=== PATIENT | female | born 1955 | race Caucasian/White ===

== ENCOUNTER → 2018-04-05 07:22 | Outpatient (CLI) | payer BC, SELFPAY ==
--- NOTE | 2018-04-05 07:30 | BI_ITS ---
MAMMOGRAPHY - BILATERAL SCREENING REASON FOR EXAM: Female, 62 years old. Routine annual screening examination. PERTINENT HISTORY: Mother with breast cancer. Remote left stereotactic and excisional breast biopsy. TECHNIQUE: Digital bilateral breast paola (3D mammographic acquisition) in the CC and MLO projections. 2-D mediolateral oblique (MLO) and craniocaudad (CC) views of both breasts were obtained. CAD: Full Field Digital Mammography with Computer Added Detection was performed. COMPARISON: Comparison is made with prior study dated April 01, 2017 and March 16, 2016. FINDINGS: Breast Composition: There are scattered areas of fibroglandular density. There are no dominant masses or suspicious calcifications. Stable architectural distortion in the retroareolar region of the left breast suggestive of changes secondary to prior biopsy. A tissue clip marker is seen in the inferior medial aspect of the left breast. No other significant abnormalities are identified. There has been no significant change since the prior study. BI/SCREENING MAMM (CAD), BILAT IMPRESSION: Stable bilateral screening mammogram. Yearly follow-up mammogram recommended. (A) ASSESSMENT CATEGORY: BIRADS Category 2: Benign. A letter regarding these results will be sent to the patient by the facility within 30 days. Approximately 10% of breast cancers are not detected by mammography. A normal mammogram should not delay biopsy of a clinically suspicious abnormality. [id number] Electronically Signed: Matt Cao MD at 8:49 EDT Tel [phone], Service support ,
== END ==
PROVIDERS: Family Provider Family Medicine; PCP Family Medicine; Visit Provider Obstetrics & Gynecology
DX: Z12.31 Encounter for screening mammogram for malignant neoplasm of breast (principal)
CPT/HCPCS: 77063; 77067

== ENCOUNTER → 2018-05-24 16:20 | Outpatient (CLI) | payer BC, SELFPAY | PROVIDERS: Family Provider Family Medicine; PCP Family Medicine; Visit Provider Otolaryngology Otolaryngology/Facial Plastic Surgery | DX: J32.9 Chronic sinusitis, unspecified (principal) | CPT/HCPCS: 87070; 87205 ==

== ENCOUNTER → 2019-04-10 07:02 | Outpatient (CLI) | payer BC, SELFPAY ==
--- NOTE | 2019-04-10 07:06 | BI_ITS ---
MAMMOGRAPHY - BILATERAL SCREENING REASON FOR EXAM: Female, 63 years old. Routine annual screening examination. PERTINENT HISTORY: Mother with breast cancer. Prior left stereotactic and excisional breast biopsies. TECHNIQUE: Digital bilateral breast paola (3D mammographic acquisition) in the CC and MLO projections. 2-D mediolateral oblique (MLO) and craniocaudad (CC) views of both breasts were obtained. CAD: Full Field Digital Mammography with Computer Added Detection was performed. COMPARISON: Comparison is made with prior study dated April 05, 2018 and April 01, 2017. FINDINGS: Breast Composition: The breasts are heterogeneously dense, which may obscure small masses. There are no dominant masses or suspicious calcifications. Stable mild architectural distortion in the retroareolar region of the left breast suggestive of a changes prior to biopsy. A tissue clip marker is also seen in the inferior medial aspect of the left breast No other significant abnormalities are identified. There has been no significant change since the prior study. BI/SCREENING MAMM (CAD), BILAT IMPRESSION: Stable bilateral screening mammogram. Yearly follow-up mammogram recommended. (A) ASSESSMENT CATEGORY: BIRADS Category 2: Benign. A letter regarding these results will be sent to the patient by the facility within 30 days. Approximately 10% of breast cancers are not detected by mammography. A normal mammogram should not delay biopsy of a clinically suspicious abnormality. [id number] Electronically Signed: Matt Cao, at 10:54 EDT , Service support ,
[2019-04-10 12:31] LABS: Hematocrit 37.3 % (37-47); Mean Corp Hgb Conc 32.2 g/gl (32-36); Mean Corpuscular Hgb 28.3 pg (27.0-32.0); Mean Platelet Vol. 12.5 fl (6.2-12.0); Platelet Count 156 K/mm3 (150-450); RBC Distribution Width CV 13.4 % (11.6-14.6); RBC Distribution Width SD 42.4 fl (35.1-43.9); Red Blood Count 4.24 M/mm3 (4.2-5.4); White Blood Count 4.5 K/mm3 (4.4-11.0)
[2019-04-10 12:45] LABS: Anion Gap 7 (5-15); BUN 13 mg/dL (7-18); BUN/Creat Ratio 14.4 RATIO (10-20); Calcium,Total 8.7 mg/dL (8.5-10.1); Chloride 106 mmol/L (98-107); Cholesterol 200 mg/dL (200); EST Glomerular Filtration Rate 67 mL/min (>60); Est Glom Filt Rate - Afr Amer 81 mL/min (>60); Glucose 100 mg/dL (74-106); High Density Lipoprotein 82 mg/dL; Potassium 4.2 mmol/L (3.5-5.1); Sodium Level 138 mmol/L (136-145); Thyroid Stim Hormone (TSH) 2.65 uIU/mL (0.358-3.74); Triglycerides 35 mg/dL; Very Low Density Lipoprotein 7 mg/dL (5-40)
[2019-04-10 12:46] LABS: Scan Indicated on CBC? Y/N NO
== END ==
PROVIDERS: Family Provider Family Medicine; PCP Family Medicine; Referring Provider Obstetrics & Gynecology; Visit Provider Obstetrics & Gynecology
DX: Z12.31 Encounter for screening mammogram for malignant neoplasm of breast (principal); Z00.00 Encounter for general adult medical examination without abnormal findings
CPT/HCPCS: 36415; 77063; 77067; 80048; 80061; 82306; 84443; 85027

== ENCOUNTER → 2019-12-04 15:30 | Outpatient (CLI) | payer BC, SELFPAY ==
[2019-12-04 18:01] LABS: ALB/GLOB Ratio 1.1 RATIO (0.9-2.4); AST(SGOT) 23 U/L (15-37); Alanine Aminotransfer ALT/SGPT 44 U/L (13-56); Albumin, Serum 3.7 g/dL (3.2-5.0); Alkaline Phosphatase 63 U/L (45-117); Anion Gap 5 (5-15); BUN 15 mg/dL (7-18); Calcium,Total 8.8 mg/dL (8.5-10.1); Chloride 108 mmol/L (98-107); EST Glomerular Filtration Rate 59 mL/min (>60); Est Glom Filt Rate - Afr Amer 72 mL/min (>60); Globulin 3.5 g/dL (2.2-4.2); Glucose 102 mg/dL (74-106); Protein, Total 7.2 g/dL (6.4-8.2); Sodium Level 139 mmol/L (136-145)
== END ==
PROVIDERS: PCP Family Medicine; Referring Provider Family Medicine; Visit Provider Family Medicine
DX: B35.1 Tinea unguium (principal)
CPT/HCPCS: 36415; 80053

== ENCOUNTER → 2020-04-11 09:02 | Outpatient (CLI) | payer BC, SELFPAY ==
[2020-04-11 10:42] LABS: Anion Gap 7 (5-15); BUN 12 mg/dL (7-18); BUN/Creat Ratio 12.6 RATIO (10-20); Chloride 106 mmol/L (98-107); Cholesterol 202 mg/dL (200); Creatinine, Serum 0.96 mg/dL (0.55-1.02); EST Glomerular Filtration Rate 62 mL/min (>60); Est Glom Filt Rate - Afr Amer 75 mL/min (>60); Glucose 107 mg/dL (74-106); High Density Lipoprotein 77 mg/dL; Potassium 4.2 mmol/L (3.5-5.1); Sodium Level 139 mmol/L (136-145); Triglycerides 51 mg/dL; Very Low Density Lipoprotein 10 mg/dL (5-40)
== END ==
PROVIDERS: PCP Family Medicine; Referring Provider Family Medicine; Visit Provider Family Medicine
DX: Z13.1 Encounter for screening for diabetes mellitus (principal); Z13.220 Encounter for screening for lipoid disorders
CPT/HCPCS: 36415; 80048; 80061

== ENCOUNTER → 2020-04-11 10:33 | Outpatient (CLI) | payer BC, SELFPAY ==
--- NOTE | 2020-04-11 10:34 | BI_ITS ---
MAMMOGRAPHY - BILATERAL SCREENING REASON FOR EXAM: Female, 64 years old. Routine annual screening examination. PERTINENT HISTORY: Mother with breast cancer. Remote left stereotactic and excisional breast biopsy. TECHNIQUE: Digital bilateral breast joaquin (3D mammographic acquisition) in the CC and MLO projections. 2-D mediolateral oblique (MLO) and craniocaudad (CC) views of both breasts were obtained. CAD: Full Field Digital Mammography with Computer Added Detection was performed. COMPARISON: Comparison is made with prior study dated April 10, 2019 and April 05, 2018. FINDINGS: Breast Composition: The breasts are heterogeneously dense, which may obscure small masses. There are no dominant masses or suspicious calcifications. No other significant abnormalities are identified. There has been no significant change since the prior study. BI/SCREEN MAMM (CAD) W/JOAQUIN BILAT IMPRESSION: Stable bilateral screening mammogram. Yearly follow-up mammogram recommended. (A) ASSESSMENT CATEGORY: BIRADS Category 1: Negative. A letter regarding these results will be sent to the patient by the facility within 30 days. Approximately 10% of breast cancers are not detected by mammography. A normal mammogram should not delay biopsy of a clinically suspicious abnormality. [id number] Electronically Signed: Matt Cao, at 12:07 EDT , Service support ,
== END ==
PROVIDERS: PCP Family Medicine; Referring Provider Obstetrics & Gynecology; Visit Provider Obstetrics & Gynecology
DX: Z12.31 Encounter for screening mammogram for malignant neoplasm of breast (principal)
CPT/HCPCS: 77063; 77067

== ENCOUNTER → 2021-04-23 10:11 | Outpatient (CLI) | payer MEDICARE, BC, SELFPAY ==
--- NOTE | 2021-04-23 10:20 | BI_ITS ---
MAMMOGRAPHY - BILATERAL SCREENING REASON FOR EXAM: Female, 65 years old. Routine annual screening examination. PERTINENT HISTORY: Mother with breast cancer. Remote left stereotactic and excisional breast biopsies. TECHNIQUE: Digital bilateral breast joaquin (3D mammographic acquisition) in the CC and MLO projections. 2-D mediolateral oblique (MLO) and craniocaudad (CC) views of both breasts were obtained. CAD: Full Field Digital Mammography with Computer Added Detection was performed. COMPARISON: Comparison is made with prior study dated 04/11/2020 and 04/10/2019. FINDINGS: Breast Composition: The breasts are heterogeneously dense, which may obscure small masses. There are no dominant masses or suspicious calcifications. A tissue clip marker is seen in the inferior medial aspect of the left breast No other significant abnormalities are identified. There has been no significant change since the prior study. BI/SCRN MAMM (CAD)W/JOAQUIN BILAT IMPRESSION: Stable bilateral screening mammogram. Yearly follow-up mammogram recommended. (A) ASSESSMENT CATEGORY: BIRADS Category 2: Benign. A letter regarding these results will be sent to the patient by the facility within 30 days. Approximately 10% of breast cancers are not detected by mammography. A normal mammogram should not delay biopsy of a clinically suspicious abnormality. [id number] Electronically Signed: Matt Cao MD at 12:01 EDT , Service support ,
== END ==
PROVIDERS: PCP Family Medicine; Referring Provider Obstetrics & Gynecology; Visit Provider Obstetrics & Gynecology
DX: Z12.31 Encounter for screening mammogram for malignant neoplasm of breast (principal)
CPT/HCPCS: 77063; 77067

== ENCOUNTER 2021-07-28 17:28 | Outpatient (CLI) | payer MEDICARE, BC, SELFPAY ==
[2021-07-28 17:45] VITALS: BP 140/51; PULSE 71; RESP 16; TEMP 36.7; O2SAT 99; BMI 27.8
[2021-07-28] MEDS: 0.9% Saline Lock 10 ML Syringe IV (17:54)
[2021-07-28 18:45] VITALS: BP 144/73; PULSE 70; RESP 16; TEMP 36.6; O2SAT 98
[2021-07-28 19:45] VITALS: BP 136/73; PULSE 65; RESP 16; TEMP 36.3; O2SAT 99
== END 2021-07-28 19:45 | disposition home or self-care (01) ==
LOC: ICUOUT 17:28 → MS2 17:30
PROVIDERS: PCP Family Medicine; Referring Provider Nurse Practitioner Adult Health; Visit Provider Nurse Practitioner Adult Health
DX: Z23 Encounter for immunization (principal); U07.1 COVID-19
CPT/HCPCS: J7050; M0245; Q0245; A4216

== ENCOUNTER → 2021-09-25 10:21 | Outpatient (CLI) | payer MEDICARE, BC, SELFPAY ==
[2021-09-25 12:04] LABS: Absolute Lymphocyte Count 1.58 X10^3/uL (0.83-4.51); Absolute Neutrophil Count 2.5 X10^3/uL (2.0-7.7); Basophil# 0.06 X10^3/uL; Basophil% 1.3 % (0-1); Eosinophil# 0.13 X10^3/uL; Eosinophils% 2.8 % (0-5); Hematocrit 37.7 % (37-47); Hemoglobin 12.1 g/dL (12.0-15.0); Lymphocyte # 1.58 X10^3/ul (0.83-4.51); Lymphocyte % 34.6 % (19-41); Mean Corp Hgb Conc 32.1 g/dL (32-36); Mean Corpuscular Hgb 28.5 pg (27.0-32.0); Mean Corpuscular Volume 88.9 fL (81-99); Mean Platelet Vol. 11.9 fl (6.2-12.0); Monocyte# 0.33 X10^3/uL; Monocyte% 7.2 % (0-10); NRBC Flagged by Analyzer 0 % (0-5); Neutrophil # 2.45 X10^3/uL (2.7-7.7); Neutrophil % 53.7 % (47-70); Platelet Count 180 K/mm3 (150-450); RBC Distribution Width CV 13.5 % (11.6-14.6); RBC Distribution Width SD 44.1 fl (35.1-43.9); Red Blood Count 4.24 M/mm3 (4.2-5.4); White Blood Count 4.6 K/mm3 (4.4-11.0)
[2021-09-25 12:48] LABS: Vitamin B12 645 pg/mL (211-911); Vitamin D,25 Hydroxy 57.3 ng/mL
[2021-09-25 13:02] LABS: AST(SGOT) 20 U/L (15-37); Alanine Aminotransfer ALT/SGPT 28 U/L (13-56); Albumin, Serum 3.8 g/dL (3.2-5.0); Alkaline Phosphatase 66 U/L (45-117); Anion Gap 8 (5-15); BUN 13 mg/dL (7-18); Calcium,Total 8.9 mg/dL (8.5-10.1); Chloride 106 mmol/L (98-107); Creatinine, Serum 0.87 mg/dL (0.55-1.02); EST Glomerular Filtration Rate 70 mL/min (>60); Est Glom Filt Rate - Afr Amer 84 mL/min (>60); Ferritin 15 ng/mL (8-252); Globulin 3.8 g/dL (2.2-4.2); Glucose 96 mg/dL (74-106); Potassium 4.1 mmol/L (3.5-5.1); Protein, Total 7.6 g/dL (6.4-8.2); Sodium Level 139 mmol/L (136-145); T4 Free Direct 0.94 ng/dL (0.76-1.46); Thyroid Stim Hormone (TSH) 2.75 uIU/mL (0.358-3.74)
== END ==
PROVIDERS: PCP Family Medicine
DX: L29.8 Other pruritus (principal); L57.0 Actinic keratosis; L30.8 Other specified dermatitis
CPT/HCPCS: 36415; 80053; 82306; 82607; 82728; 84439; 84443; 85025

== ENCOUNTER → 2022-04-21 | Outpatient (CLI) | payer MEDICARE, BC, SELFPAY ==
[2022-04-21 13:07] LABS: Vitamin D,25 Hydroxy 50.6 ng/mL
[2022-04-21 13:13] LABS: Anion Gap 5 (5-15); BUN 14 mg/dL (7-18); Calcium,Total 9.1 mg/dL (8.5-10.1); Chloride 107 mmol/L (98-107); Cholesterol 215 mg/dL (200); Creatinine, Serum 0.88 mg/dL (0.55-1.02); EST Glomerular Filtration Rate 68 mL/min (>60); Est Glom Filt Rate - Afr Amer 83 mL/min (>60); Glucose 92 mg/dL (74-106); High Density Lipoprotein 77 mg/dL; Potassium 4.5 mmol/L (3.5-5.1); Sodium Level 140 mmol/L (136-145); Thyroid Stim Hormone (TSH) 3.32 uIU/mL (0.358-3.74); Triglycerides 62 mg/dL; Very Low Density Lipoprotein 12 mg/dL (5-40)
== END | disposition home or self-care (01) ==
LOC: MFPLAB 10:46
PROVIDERS: PCP Family Medicine; Referring Provider Family Medicine; Visit Provider Family Medicine
DX: M85.80 Other specified disorders of bone density and structure, unspecified site (principal); Z13.1 Encounter for screening for diabetes mellitus; Z13.220 Encounter for screening for lipoid disorders
CPT/HCPCS: 36415; 80048; 80061; 82306; 84443

== ENCOUNTER → 2022-04-30 | Outpatient (CLI) | payer MEDICARE, BC, SELFPAY ==
--- NOTE | 2022-04-30 12:44 | BI_ITS ---
MAMMOGRAPHY - BILATERAL SCREENING REASON FOR EXAM: Female, 66 years old. Routine annual screening examination. PERTINENT HISTORY: Mother with breast cancer. Remote left stereotactic and excisional breast biopsy. TECHNIQUE: Digital bilateral breast joaquin (3D mammographic acquisition) in the CC and MLO projections. 2-D mediolateral oblique (MLO) and craniocaudad (CC) views of both breasts were obtained. CAD: Full Field Digital Mammography with Computer Added Detection was performed. COMPARISON: Comparison mammograms from 04/23/2021, 04/11/2020, 04/10/2019, 04/05/2018. FINDINGS: Breast Composition: The breasts are heterogeneously dense, which may obscure small masses. There are no dominant masses or suspicious calcifications. Stable biopsy clip in the left breast. No other significant abnormalities are identified. There has been no significant change since the prior study. BI/SCRN MAMM (CAD)W/JOAQUIN BILAT IMPRESSION: Stable bilateral screening mammogram. Yearly follow-up mammogram recommended. (A) ASSESSMENT CATEGORY: BIRADS Category 2: Benign. A letter regarding these results will be sent to the patient by the facility within 30 days. Approximately 10% of breast cancers are not detected by mammography. A normal mammogram should not delay biopsy of a clinically suspicious abnormality. [id number] Electronically Signed: Orestes Brunson, at 10:35 EDT ,
--- NOTE | 2022-04-30 12:47 | BD_ITS ---
STUDY: DUAL ENERGY X-RAY ABSORPTIOMETRY / DXA REASON FOR EXAM: Female, 66 years old. Z780. Patient is postmenopausal. TECHNIQUE: Bone Mineral Density (BMD) measurements of lumbar spine and bilateral hips were obtained. COMPARISON: Comparison is made with prior study dated 01/18/2014. FINDINGS: Lumbar Spine (L1-L4): g/cm2 (0.993) / T-score (-0.5) / Z-score (1.4) Findings are suggestive of normal bone density with a low fracture risk. Left Femur Total: g/cm2 (0.928) / T-score (-0.1) / Z-score (1.2) Left Femoral Neck: g/cm2 (0.695) / T-score (-1.4) / Z-score (0.2) Right Femur Total: g/cm2 (0.961) / T-score (0.2) / Z-score (1.5) Right Femoral Neck: g/cm2 (0.667) / T-score (-1.6) / Z-score (0.0) The T-Scores on the most recent prior examination were: Lumbar Spine (L1-L4): There has been worsening of bone density since the previous examination. Left Femur Total: which represents an improvement of 1.5%. Right Femur Total: which represents an improvement of 5%. BD/Dexa Bone Density Study IMPRESSION: The patient is considered osteopenic as outlined below according to World [place] Organization (WHO) criteria with a moderate fracture risk. There has been improvement of bone density since the previous examination. Reference Information: The T-score is the number of standard deviations above or below the standard which is normal for young adults at their peak bone mineral density. The World Health Organization (WHO) interprets the T-scores as follows: Above -1 Normal bone density Between -1 and -2.5 Osteopenia Equal to / or below -2.5 Osteoporosis As a practical clinical guideline, osteopenia may be graded as follows: Mild -1 through -1.5 Moderate -1.6 through -2.0 Severe -2.1 through -2.4 The Z-score is the number of standard deviations above or below age-matched controls. A Z-score of less than -1.5 would be considered abnormal. References: 1. NIH Osteoporosis and Related Bone Diseases www osteo.org 2. International Society for Clinical Densitometry www iscd.org 3. National Osteoporosis Foundation www nof.org Electronically Signed: Matt Cao MD at 8:57 EDT ,
== END | disposition home or self-care (01) ==
LOC: OPBD 12:41
PROVIDERS: PCP Family Medicine; Visit Provider Family Medicine
DX: Z12.31 Encounter for screening mammogram for malignant neoplasm of breast (principal); Z80.3 Family history of malignant neoplasm of breast; Z78.0 Asymptomatic menopausal state
CPT/HCPCS: 77063; 77067; 77080

== ENCOUNTER → 2022-08-05 | Outpatient (CLI) | payer MEDICARE, BC, SELFPAY ==
[2022-08-05 12:42] LABS: Absolute Lymphocyte Count 1.76 X10^3/uL (0.83-4.51); Absolute Neutrophil Count 3.1 X10^3/uL (2.0-7.7); Basophil# 0.05 X10^3/uL; Basophil% 0.9 % (0-1); Eosinophils% 3.6 % (0-5); Hematocrit 41.1 % (37-47); Hemoglobin 13.1 g/dL (12.0-15.0); Lymphocyte # 1.76 X10^3/ul (0.83-4.51); Lymphocyte % 31.8 % (19-41); Mean Corp Hgb Conc 31.9 g/dL (32-36); Mean Corpuscular Hgb 28.6 pg (27.0-32.0); Mean Corpuscular Volume 89.7 fL (81-99); Mean Platelet Vol. 12.3 fl (6.2-12.0); Monocyte# 0.35 X10^3/uL; Monocyte% 6.3 % (0-10); NRBC Flagged by Analyzer 0 % (0-5); Neutrophil # 3.14 X10^3/uL (2.7-7.7); Neutrophil % 56.9 % (47-70); Platelet Count 181 K/mm3 (150-450); RBC Distribution Width CV 13.1 % (11.6-14.6); RBC Distribution Width SD 42.5 fl (35.1-43.9); Red Blood Count 4.58 M/mm3 (4.2-5.4); White Blood Count 5.5 K/mm3 (4.4-11.0)
[2022-08-05 13:15] LABS: ALB/GLOB Ratio 0.9 RATIO (0.9-2.4); AST(SGOT) 24 U/L (15-37); Alanine Aminotransfer ALT/SGPT 47 U/L (13-56); Albumin, Serum 3.6 g/dL (3.2-5.0); Alkaline Phosphatase 66 U/L (45-117); Anion Gap 8 (5-15); BUN 13 mg/dL (7-18); BUN/Creat Ratio 13.8 RATIO (10-20); Calcium,Total 8.9 mg/dL (8.5-10.1); Chloride 108 mmol/L (98-107); Creatinine, Serum 0.94 mg/dL (0.55-1.02); EST Glomerular Filtration Rate 63 mL/min (>60); Est Glom Filt Rate - Afr Amer 76 mL/min (>60); Globulin 3.9 g/dL (2.2-4.2); Glucose 110 mg/dL (74-106); Potassium 4.1 mmol/L (3.5-5.1); Protein, Total 7.5 g/dL (6.4-8.2); Sodium Level 139 mmol/L (136-145); T4 Free Direct 0.98 ng/dL (0.76-1.46); Thyroid Stim Hormone (TSH) 4.04 uIU/mL (0.358-3.74)
== END | disposition home or self-care (01) ==
LOC: MFPLAB 09:19
PROVIDERS: Nurse Practitioner Family; PCP Family Medicine; Referring Provider Family Medicine; Visit Provider Family Medicine
DX: I10 Essential (primary) hypertension (principal)
CPT/HCPCS: 36415; 80053; 84439; 84443; 85025

== ENCOUNTER → 2022-09-18 | Outpatient (CLI) | payer MEDICARE, BC, SELFPAY ==
[2022-09-18 09:56] LABS: Absolute Lymphocyte Count 1.43 X10^3/uL (0.83-4.51); Absolute Neutrophil Count 2.7 X10^3/uL (2.0-7.7); Basophil# 0.07 X10^3/uL; Basophil% 1.5 % (0-1); Eosinophil# 0.16 X10^3/uL; Eosinophils% 3.4 % (0-5); Hematocrit 34.2 % (37-47); Hemoglobin 11.3 g/dL (12.0-15.0); Lymphocyte # 1.43 X10^3/ul (0.83-4.51); Lymphocyte % 30.6 % (19-41); Mean Corpuscular Hgb 29.7 pg (27.0-32.0); Mean Corpuscular Volume 89.8 fL (81-99); Mean Platelet Vol. 12.1 fl (6.2-12.0); Monocyte% 6.4 % (0-10); NRBC Flagged by Analyzer 0 % (0-5); Neutrophil % 57.7 % (47-70); Platelet Count 176 K/mm3 (150-450); RBC Distribution Width CV 13.3 % (11.6-14.6); RBC Distribution Width SD 43.6 fl (35.1-43.9); Red Blood Count 3.81 M/mm3 (4.2-5.4); White Blood Count 4.7 K/mm3 (4.4-11.0)
[2022-09-18 10:40] LABS: AST(SGOT) 20 U/L (15-37); Alanine Aminotransfer ALT/SGPT 39 U/L (13-56); Albumin, Serum 3.7 g/dL (3.2-5.0); Alkaline Phosphatase 66 U/L (45-117); Anion Gap 7 (5-15); BUN 18 mg/dL (7-18); BUN/Creat Ratio 18.8 RATIO (10-20); Calcium,Total 8.5 mg/dL (8.5-10.1); Chloride 109 mmol/L (98-107); Cholesterol 179 mg/dL (200); Creatinine, Serum 0.96 mg/dL (0.55-1.02); EST Glomerular Filtration Rate 62 mL/min (>60); Est Glom Filt Rate - Afr Amer 75 mL/min (>60); Free T3 2.7 pg/mL (2.18-3.98); Globulin 3.6 g/dL (2.2-4.2); Glucose 107 mg/dL (74-106); High Density Lipoprotein 83 mg/dL; Potassium 4.3 mmol/L (3.5-5.1); Protein, Total 7.3 g/dL (6.4-8.2); Sodium Level 140 mmol/L (136-145); Triglycerides 55 mg/dL; Very Low Density Lipoprotein 11 mg/dL (5-40)
== END | disposition home or self-care (01) ==
LOC: MFPLAB 08:30
PROVIDERS: PCP Family Medicine; Visit Provider Nurse Practitioner Family
DX: R79.89 Other specified abnormal findings of blood chemistry (principal); I10 Essential (primary) hypertension; Z13.220 Encounter for screening for lipoid disorders
CPT/HCPCS: 36415; 80053; 80061; 84439; 84443; 84481; 85025

== ENCOUNTER → 2022-12-18 | Outpatient (CLI) | payer MEDICARE, BC, SELFPAY ==
[2022-12-18 10:37] LABS: T4 Free Direct 1.13 ng/dL (0.76-1.46); Thyroid Stim Hormone (TSH) 2.14 uIU/mL (0.358-3.74)
== END | disposition home or self-care (01) ==
LOC: MFPLAB 09:20
PROVIDERS: PCP Family Medicine; Referring Provider Family Medicine; Visit Provider Family Medicine
DX: E03.9 Hypothyroidism, unspecified (principal)
CPT/HCPCS: 36415; 84439; 84443

== ENCOUNTER → 2023-04-20 | Outpatient (CLI) | payer MEDICARE, BC, SELFPAY ==
--- NOTE | 2023-04-20 07:55 | CT_ITS ---
STUDY: CT MAXILLOFACIAL SINUSES REASON FOR EXAM: Female, 67 years old. ABNORMAL X-RAY RADIATION DOSAGE (If Supplied By Facility): CTDIvol = ( 28.14 ) mGy, DLP = ( 707.50 ) mGycm TECHNIQUE: The patient was scanned in a multi detector CT scanner. High resolution axial imaging was performed without the administration of intravenous contrast material. Sagittal and coronal images were reconstructed. Individualized dose optimization techniques were used for this CT. COMPARISON: None. FINDINGS: The patient is status post ORIF of the anterior medial portions of both maxillary sinuses. FRONTAL SINUSES: Normal aeration, without mucosal inflammatory disease. ETHMOIDAL SINUSES: Normal aeration, without mucosal inflammatory disease. MAXILLARY SINUSES: Opacification of the right maxillary sinus. There is protrusion into the right nasal cavity of the soft tissue density seen in the right maxillary sinus. SPHENOIDAL SINUSES: Mild degree of mucosal thickening of the left maxillary sinus. There is soft tissue prominence in the right ostiomeatal complex decrease in the flow from the right maxillary sinus. Normal bilateral middle turbinates. Normal bilateral inferior turbinates. There is a left sided nasal septal deviation, but without a nasal septal spur. There is patency of the bilateral nasal airways. The visualized osseous structures are normal. The visualized bilateral orbital contents are normal. CT/Sinus/Facial Bone IMPRESSION: Opacification of the right maxillary sinus with mucosal thickening at the level of the right ostiomeatal complex. Mild mucosal thickening of the left maxillary sinus. Nasal septal deviation toward the left side of the midline. Electronically Signed: Matt Cao MD at 8:52 EDT ,
== END | disposition home or self-care (01) ==
LOC: CT 07:48
PROVIDERS: PCP Family Medicine; Referring Provider Otolaryngology; Visit Provider Otolaryngology
DX: J32.0 Chronic maxillary sinusitis (principal); G50.1 Atypical facial pain
CPT/HCPCS: 70486

== ENCOUNTER → 2023-05-05 | Outpatient (CLI) | payer MEDICARE, BC, SELFPAY ==
--- NOTE | 2023-05-05 12:32 | BI_ITS ---
MAMMOGRAPHY - BILATERAL SCREENING REASON FOR EXAM: Female, 67 years old. Routine annual screening examination. PERTINENT HISTORY: Mother with breast cancer. History of prior left stereotactic breast biopsy. TECHNIQUE: Digital bilateral breast joaquin (3D mammographic acquisition) in the CC and MLO projections. 2-D mediolateral oblique (MLO) and craniocaudad (CC) views of both breasts were obtained. CAD: Full Field Digital Mammography with Computer Added Detection was performed. COMPARISON: Comparison is made with prior study dated April 30, 2022 and April 23, 2021. FINDINGS: Breast Composition: The breasts are heterogeneously dense, which may obscure small masses. There are no dominant masses or suspicious calcifications. A tissue clip marker is once again seen in the central lower medial quadrant of the left breast. This is seen within a nodule measuring 9.4 mm x 6.7 mm. No other significant abnormalities are identified. There has been no significant change since the prior study. BI/SCRN MAMM (CAD)W/JOAQUIN BILAT IMPRESSION: Stable bilateral screening mammogram. Yearly follow-up mammogram recommended. (A) ASSESSMENT CATEGORY: BIRADS Category 2: Benign. A letter regarding these results will be sent to the patient by the facility within 30 days. Approximately 10% of breast cancers are not detected by mammography. A normal mammogram should not delay biopsy of a clinically suspicious abnormality. [id number] Electronically Signed: Matt Cao MD at 14:11 EDT ,
== END | disposition home or self-care (01) ==
LOC: OPBI 12:32
PROVIDERS: PCP Family Medicine; Referring Provider Family Medicine; Visit Provider Family Medicine
DX: Z12.31 Encounter for screening mammogram for malignant neoplasm of breast (principal); Z80.3 Family history of malignant neoplasm of breast
CPT/HCPCS: 77063; 77067

== ENCOUNTER 2023-06-28 05:47 | Day surgery (SDC) | payer MEDICARE, BC, SELFPAY ==
--- NOTE | 2023-06-22 08:07 | EKG12_ITS ---
Test Reason : PRE OP Blood Pressure : / mmHG Vent. Rate : 056 BPM Atrial Rate : 056 BPM P-R Int : 196 ms QRS Dur : 078 ms QT Int : 418 ms P-R-T Axes : 063 057 063 degrees QTc Int : 403 ms Sinus bradycardia with marked sinus arrhythmia Low voltage QRS Borderline ECG Confirmed by SURESH CLEMENTS ([id number]), medical transcription editor ALDA BULL ([id number]) on 06/28/2023 1:47:08 PM Referred By: Troy Carvalho Confirmed By:SURESH CLEMENTS
[2023-06-22 09:27] LABS: Vitamin D,25 Hydroxy 71.3 ng/mL
[2023-06-22 09:36] LABS: Anion Gap 4 (5-15); BUN 13 mg/dL (7-18); BUN/Creat Ratio 12.5 RATIO (10-20); Calcium,Total 9.2 mg/dL (8.5-10.1); Chloride 107 mmol/L (98-107); Cholesterol 199 mg/dL (200); Creatinine, Serum 1.04 mg/dL (0.55-1.02); EST Glomerular Filtration Rate 56 mL/min (>60); Est Glom Filt Rate - Afr Amer 68 mL/min (>60); Glucose 103 mg/dL (74-106); High Density Lipoprotein 74 mg/dL; Potassium 4.4 mmol/L (3.5-5.1); Sodium Level 138 mmol/L (136-145); Thyroid Stim Hormone (TSH) 1.92 uIU/mL (0.358-3.74); Triglycerides 41 mg/dL; Very Low Density Lipoprotein 8 mg/dL (5-40)
[2023-06-28] VITALS (7 sets, daily range): BP systolic 122–131; BP diastolic 58–71; PULSE 57–84; RESP 16; TEMP 36.3–36.9; O2SAT 95–97; BMI 27.0
--- NOTE | 2023-06-28 | ETH_PTH ---
PATIENT: MIROSLAVA THOMAS LOC: [facility] [place] U#:[id number] AGE/SX: 67/F ROOM: RE06/28/[address]: Dr. Troy Carvalho MD : 1955 BED: DIS: 06/28/2023 SPEC #: [id number] RECD: 06/28/23 10:35 STATUS: MELIDA REGarcia #: [id number] FRANCIA: 06/28/23 00:[address]: Troy Carvalho DEPT: SURGICAL PATHOLOGY RECD BY: Jason Cleary ENTERED: 06/28/23 10:35 SP TYPE: ETH TISS OTHR DR: Dr. Joel Anderson MD Tissues: Ethmoid sinus, NOS Procedures: Special Stain Group I Surgery Specimen Level IV GMS Stain (control) HEADER OPERATION: Maxillary antrostomy tissue removal, anterior ethmoidectomy PRE-OP DIAGNOSIS: Chronic sinusitis TISSUE SUBMITTED: Right sinus content MICROSCOPIC DIAGNOSIS Right sinus contents, curettings: Chronic sinusitis. Abundant fungal organisms present. See comment. AM:woo 06/29/2023 COMMENT GMS stain with matched control supports the above diagnosis and favors aspergillus species. Clinical correlation is suggested. MICROSCOPIC DESCRIPTION Slides are reviewed. GROSS DESCRIPTION Received in fixative is one container labeled with the patient's name and designated right sinus contents. The specimen consists of multiple irregular fragments of fnva-cwikm-wyc soft tissue that in aggregate measure 3.0 x 2.5 x 0.2 cm. The specimen is totally submitted in one cassette. / AM:woo 06/28/2023 TC:3 CPT: 39019, 75055
[2023-06-28] MEDS: Lactated Ringers 1,000 ML 15 ML IV ×2 (06:34→09:33)
[2023-06-28] MEDS: Oxymetazoline 0.05% 1 SPRAY SPRAY.BTL 3 SPRAY NASAL (06:34)
[2023-06-28 06:52] LABS: Hematocrit 35.4 % (37-47); Hemoglobin 11.5 g/dL (12.0-15.0); Mean Corp Hgb Conc 32.5 g/dL (32-36); Mean Corpuscular Volume 89.4 fL (81-99); Mean Platelet Vol. 11.4 fl (6.2-12.0); Platelet Count 174 K/mm3 (150-450); RBC Distribution Width CV 12.2 % (11.6-14.6); RBC Distribution Width SD 39.9 fl (35.1-43.9); Red Blood Count 3.96 M/mm3 (4.2-5.4); White Blood Count 5.3 K/mm3 (4.4-11.0)
--- NOTE | 2023-06-28 07:39 | PCM.DC.SUM ---
Providers Primary Care Physician: Dr. Connor Anderson MD Reason For Visit: ENDOSCOPIC INTRANASAL Medications at Discharge Home Medications biotin 10,000 mcg capsule 10,000 mcg PO DAILY 06/21/23 calcium carbonate 600 mg-vitamin D3 5 mcg (200 unit) capsule (Calcium 600 + D(3)) 2 cap PO DAILY 06/21/23 estradiol 0.5 mg tablet 0.25 mg PO Q4D 06/21/23 levothyroxine 50 mcg tablet 50 mcg PO DAILY 06/21/23 lisinopril 10 mg tablet 10 mg PO DAILY 06/21/23 Weight / BMI Weight Weight: 74.8 kg Body Mass Index (BMI) 27.0 ABG / Lab / Microbiology Data 06/28/23 06:40 06/22/23 08:34 Laboratory: Laboratory Results - last 24 hr 06/28/23 06:40: WBC 5.3, RBC 3.96 L, Hgb 11.5 L, Hct 35.4 L, MCV 89.4, MCH 29.0, MCHC 32.5, RDW Std Deviation 39.9, RDW Coeff of Antony 12.2, Plt Count 174, MPV 11.4 D/C Instructions Discharge Diet: No restrictions Discharge Activity: - (NO NOSE BLOWING) Additional Dressing/Incision Instructions: START SALINE IRRIGATION (SINUS RINSE KIT) 4X/DAY ON 06/29/23 Please Follow Up With: Troy Carvalho MD When: NEXT WEEK Meaningful Use Info Meaningful Use Diagnoses (Choose all that apply): None applicable Discharge Plan Admission Attending Provider: Troy Carvalho Primary Care Provider: Connor Anderson Discharge Orders/Prescriptions Prescriptions: No Action levothyroxine 50 mcg tablet 50 mcg PO DAILY Patient Comments: TAKE 1 TABLET BY MOUTH EVERY DAY lisinopril 10 mg tablet 10 mg PO DAILY estradiol 0.5 mg tablet 0.25 mg PO Q4D Patient Comments: 1/2 (ONE HALF) TABLET PER VAGINA TWICE WEEKLY AT BEDTIME Calcium 600 + D(3) 600 mg-5 mcg (200 unit) capsule 2 cap PO DAILY biotin 10,000 mcg capsule 10,000 mcg PO DAILY Referrals / Follow Up: Connor Anderson MD [Primary Care Provider] - Disposition Disposition (needs filled in before D/C Order can be placed): Home, Self Care
[2023-06-28] MEDS: Lidocaine 1% /Epi 1:100 (20ml) 20 ML Vial (08:06)
[2023-06-28] MEDS: Oxymetazoline 0.05% 1 SPRAY SPRAY.BTL 15 SPRAY (08:06)
--- NOTE | 2023-06-28 08:49 | OP.PCM_ITS ---
Report of Operation Date of Procedure: 06/28/23 Pre-Operative Diagnosis: right chronic sinusitis Post-Operative Diagnosis: same Surgery/Procedure Performed:: Right maxillary antrostomy with tissue removal Right total ethmoidectomy Use of navigation Description of Surgical Findings:: Large fungal ball in the right maxillary sinus Surgeon: Troy Carvalho Type of Anesthesia: General Anesthesiologist: Sky Pemberton Specimen's removed: right sinus contents Estimated Blood Loss (mL): minimal Description of Procedure: The patient was taken to the operating room on 06/28/2023. The patient was placed in the supine position on the operating table. The patient was given aiken fficient general endotracheal anesthesia. The head of bed was elevated 30 degrees. The navigation system was placed and verified per protocol and found to be accurate. 0,30 and 70 degree rigid nasal endoscopes were used throughout the entire case. The right middle turbinate and uncinate process were injected with 1% lidocaine with epinephrine. The right middle turbinate was medialized with a [place] elevator. A ball-tipped sinus seeker was placed into the patient's maxillary sinus. A backbiter was used to create the maxillary antrostomy. The uncinate process was taken down using a microdebrider. The posterior antrostomy was opened with a sinus shaver. Fungus was removed from the maxillary sinus using a microdebrider, irrigation and giraffe forceps with a 30 and 70 degree rigid nasal endoscope for visualization. The 70 degree scope was then used to verify that all fungal fungal elements were removed from the maxillary sinus. Next, the ethmoid bulla was opened with a small curette. Anterior and posterior ethmoidectomy were then carried out using curette, sinus shaver and 45 degree [place] Gabbi forceps. Ethmoid cells were verified for relation to the skull base and orbit prior to being entered with the navigation system. Hemostasis was then achieved using Afrin pledgets and sparing suction cautery. The pledgets were then removed and Vane powder was applied for absolute hemostasis. The procedure was then terminated. The patient was then awoken and brought to the recovery room in stable condition blood loss minimal, replacement none. Sponge, needle, instrument count were correct at the end of the procedure.
== END 2023-06-28 10:25 | disposition home or self-care (01) ==
LOC: SDC 05:47 → AC 05:48
PROVIDERS: PCP Family Medicine; Referring Provider Otolaryngology; Visit Provider Otolaryngology
PROC: (CPT 31267; principal; 2023-06-28 07:00)
DX: J32.8 Other chronic sinusitis (principal); I10 Essential (primary) hypertension; E03.9 Hypothyroidism, unspecified; G47.30 Sleep apnea, unspecified; M85.80 Other specified disorders of bone density and structure, unspecified site; Z79.899 Other long term (current) drug therapy
CPT/HCPCS: 31267; 31255; 36415; 80048; 80061; 82306; 84443; 85027; 88305; 88312; 93005; J7120; J2405

== ENCOUNTER → 2024-01-14 | Outpatient (CLI) | payer MEDICARE, BC, SELFPAY ==
[2024-01-14 11:07] LABS: Anion Gap 5 (5-15); BUN 15 mg/dL (7-18); BUN/Creat Ratio 15.8 RATIO (10-20); Calcium,Total 9.1 mg/dL (8.5-10.1); Chloride 109 mmol/L (98-107); Cholesterol 204 mg/dL (200); Creatinine, Serum 0.95 mg/dL (0.55-1.02); EST Glomerular Filtration Rate 62 mL/min (>60); Est Glom Filt Rate - Afr Amer 75 mL/min (>60); Free T3 2.2 pg/mL (2.18-3.98); Glucose 102 mg/dL (74-106); High Density Lipoprotein 79 mg/dL; Sodium Level 141 mmol/L (136-145); T4 Free Direct 0.95 ng/dL (0.76-1.46); Thyroid Stim Hormone (TSH) 2.25 uIU/mL (0.358-3.74); Triglycerides 35 mg/dL; Very Low Density Lipoprotein 7 mg/dL (5-40)
== END | disposition home or self-care (01) ==
LOC: MFPLAB 08:58
PROVIDERS: PCP Family Medicine; Visit Provider Family Medicine
DX: I48.91 Unspecified atrial fibrillation (principal); E03.9 Hypothyroidism, unspecified
CPT/HCPCS: 36415; 80048; 80061; 84439; 84443; 84481

== ENCOUNTER → 2024-02-08 | Outpatient (CLI) | payer MEDICARE, BC, SELFPAY ==
--- NOTE | 2024-02-08 10:43 | ECHOD_ITS ---
Reason For Study: Palpitations Procedure This was a 2D Doppler, Color Flow transthoracic echocardiogram. Exam performed in department. Left Ventricle Normal LV size. Left ventricular systolic function is normal. The estimated ejection fraction is 60 %. Normal diastology for age. No regional wall motion abnormalities noted. Right Ventricle Normal RV size. Normal systolic function. Atria Normal left atrium. Normal right atrium. Mitral Valve Normal mitral valve. Tricuspid Valve Normal tricuspid valve. Mild (1+) tricuspid valve insufficiency. Pulmonary artery systolic pressure is 34 mmHg. Aortic Valve Normal aortic valve. Trisinus/trileaflet aortic valve. Pulmonic Valve Normal pulmonic valve. Great Vessels Normal aortic root. The pulmonary artery is normal size. Inferior vena cava collapse with respiration. Pericardium/Pleural No pericardial effusion. MMode/2D Measurements & Calculations LVIDd: 4.6 cm IVSd: 0.96 cm Ao root diam: 3.2 cm LVIDs: 2.7 cm LVPWd: 0.75 cm LA dimension: 4.1 cm RVDd: 3.5 cm FS: 41.3 % LAV(MOD-bp): 59.5 ml LVAd ap4: 24.7 cm2 SV(MOD-sp4): 39.9 ml LAV(MOD-bp) Indexed: 32.9 ml/m2 LVLd ap4: 7.1 cm LAV(MOD-sp2): 52.4 ml EDV(MOD-sp4): 68.5 ml LAV(MOD-sp4): 67.8 ml EDV(sp4-el): 73.0 ml LVAs ap4: 14.3 cm2 LVLs ap4: 5.7 cm ESV(MOD-sp4): 28.7 ml ESV(sp4-el): 30.5 ml EF(MOD-sp4): 58.2 % EF(sp4-el): 58.2 % SV(sp4-el): 42.5 ml LA A4 area: 21.0 cm2 RA A4 area: 19.5 cm2 TAPSE: 1.9 cm Time Measurements MV dec time: 0.18 sec Doppler Measurements & Calculations MV E max chacho: 83.1 cm/sec Lat Peak E' Chacho: 13.1 cm/sec Med Peak E' Chacho: 9.4 cm/sec MV A max chacho: 30.3 cm/sec E/E' lat: 6.3 E/E' med: 8.9 MV E/A: 2.7 MV V2 max: 107.1 cm/sec MV P1/2t max chacho: 107.1 cm/sec Ao V2 max: 114.7 cm/sec MV max P.6 mmHg MV P1/2t: 64.8 msec Ao max P.3 mmHg MV V2 mean: 40.8 cm/sec MV dec slope: 484.3 cm/sec2 Ao V2 mean: 80.9 cm/sec MV mean P.97 mmHg Ao mean P.0 mmHg MV V2 VTI: 29.7 cm MVA(P1/2t): 3.4 cm2 Ao V2 VTI: 30.9 cm AV (velocity ratio): 0.74 LV V1 max: 87.9 cm/sec PA V2 max: 91.8 cm/sec TR max chacho: 272.3 cm/sec LV V1 max P.1 mmHg TR max P.7 mmHg LV V1 mean P.8 mmHg LV V1 mean: 63.7 cm/sec LV V1 VTI: 22.9 cm ECHO/Echo Complete Interpretation Summary Normal LV size. Left ventricular systolic function is normal. The estimated ejection fraction is 60 %. Pulmonary artery systolic pressure is 34 mmHg. Structurally normal valves. Ordering Physician: Storm Ryan Referring Physician: Storm Ryan Performed By: Yohan Richardson RCS
== END | disposition home or self-care (01) ==
LOC: CVS 10:43
PROVIDERS: PCP Family Medicine; Referring Provider Internal Medicine Cardiovascular Disease; Visit Provider Internal Medicine Cardiovascular Disease
DX: R00.2 Palpitations (principal)
CPT/HCPCS: 93306

== ENCOUNTER → 2024-04-24 | Outpatient (CLI) | payer MEDICARE, BC, SELFPAY ==
--- NOTE | 2024-04-24 10:38 | STRESSREP ---
Stress Test Report Pharmacologic myocardial perfusion stress test. 68-year-old lady with a history of dyspnea on exertion Resting EKG demonstrates atrial fibrillation with a rate of 73 bpm. Resting blood pressure is 130/68 mmHg. 0.4 mg of regadenoson was infused per usual protocol followed by rapid intravenous saline flush injection. Continuous EKG monitoring was performed. The maximum heart rate was 113 bpm which was 74% of max impacted heart rate the maximum workload was 1 metabolic equivalent. At rest there were no ST or T wave changes noted to suggest ischemia and at peak infusion nonspecific ST changes were noted which did not meet the criteria for ischemia. No clinical angina is noted. The final blood pressure was 130/68 mmHg. Myocardial perfusion protocol. 11.3 mCi of technetium 99m sestamibi was injected at rest. 0.4 mg of regadenoson was infused per usual protocol. At peak infusion 33.6 mCi of technetium 99m sestamibi was injected stress images were obtained stress and rest images were reconstructed and compared in the short axis vertical long and horizontal long axis. Gated images were also obtained. Perfusion SPECT analysis: Review of the stress images demonstrate normal uptake of tracer noted in all areas of the myocardium. The resting images similar demonstrated normal uptake of tracer noted in all areas of the myocardium. No areas of reversibility are noted to suggest ischemia and no previous infarct is noted. Gated SPECT analysis: The gated ejection fraction is 76%. Conclusion: Normal pharmacologic myocardial perfusion stress test. Preserved ejection fraction.
== END | disposition home or self-care (01) ==
LOC: CVS 06:38
PROVIDERS: PCP Family Medicine; Referring Provider Physician Assistant Medical; Visit Provider Physician Assistant Medical
DX: I48.91 Unspecified atrial fibrillation (principal); R00.2 Palpitations; R06.09 Other forms of dyspnea
CPT/HCPCS: 78452; 93017; A9500; A4216; J2785

== ENCOUNTER → 2024-04-25 | Outpatient (CLI) | payer MEDICARE, BC, SELFPAY ==
[2024-04-25 08:08] LABS: Vitamin D,25 Hydroxy 57.3 ng/mL
[2024-04-25 08:18] LABS: Anion Gap 3 (5-15); BUN 17 mg/dL (7-18); BUN/Creat Ratio 19.3 RATIO (10-20); Calcium,Total 9.1 mg/dL (8.5-10.1); Chloride 107 mmol/L (98-107); Cholesterol 203 mg/dL (200); Creatinine, Serum 0.88 mg/dL (0.55-1.02); EST Glomerular Filtration Rate 68 mL/min (>60); Est Glom Filt Rate - Afr Amer 82 mL/min (>60); Glucose 100 mg/dL (74-106); High Density Lipoprotein 76 mg/dL; Potassium 4.2 mmol/L (3.5-5.1); Sodium Level 137 mmol/L (136-145); Thyroid Stim Hormone (TSH) 2.99 uIU/mL (0.358-3.74); Triglycerides 45 mg/dL; Very Low Density Lipoprotein 9 mg/dL (5-40)
== END | disposition home or self-care (01) ==
LOC: LAB 06:19
PROVIDERS: PCP Family Medicine; Referring Provider Family Medicine; Visit Provider Family Medicine
DX: E03.9 Hypothyroidism, unspecified (principal); M85.80 Other specified disorders of bone density and structure, unspecified site; I10 Essential (primary) hypertension
CPT/HCPCS: 36415; 80048; 80061; 82306; 84443

== ENCOUNTER 2024-04-26 10:30 | Day surgery (SDC) | payer MEDICARE, BC, SELFPAY ==
[2024-04-25 09:07] VITALS: BMI 27.9
--- NOTE | 2024-04-26 11:52 | PCM.OP.PRO ---
Procedure Report Date of Procedure: 04/26/24 DC cardioversion. 68-year-old lady with a history of chronic persistent atrial fibrillation. The patient was brought to cardiac catheterization lab in the post observed to nonsedated state. Informed consent was obtained. The patient was seen by Dr. Marcano of the critical care division. Anterior-posterior pads were applied. The patient was administered 40 mg of intravenous propofol. 200 J of biphasic DC cardioversion energy were applied with prompt reversal to sinus rhythm. Patient tolerated the procedure well. Conclusion: Successful DC cardioversion from atrial fibrillation to sinus rhythm. Continue as per office protocol.
--- NOTE | 2024-04-26 11:56 | PRO.PCM_ITS ---
Procedure Report Date of Procedure: 04/26/24 CONSCIOUS SEDATION REPORT DATE OF SERVICE: April 26, 2024 BRIEF HISTORY OF PRESENT ILLNESS: The patient is a 68-year-old female who presented to [facility] for an elective outpatient cardioversion due to underlying atrial fibrillation. The patient has never previously undergone a cardioversion. However, she denied any prior anesthetic complications. Although she does have a history of obstructive sleep apnea, she does not utilize any form of nocturnal PAP therapy. The patient is a non-smoker, without any history of COPD or asthma. Her last surface echocardiogram demonstrated an ejection fraction of approximately 60%. The patient is systemically anticoagulated on Eliquis. PHYSICAL EXAMINATION: VITAL SIGNS: Reviewed and were acceptable. GENERAL: The patient is a female, in no apparent distress, speaking in full sentences. HEENT: Normocephalic, atraumatic. Mucous membranes are moist and pink. Good mouth opening noted. Trachea is midline. Good neck mobility. CHEST: S1, S2 irregularly irregular. No murmurs, rubs or gallops were noted. LUNGS: Clear to auscultation bilaterally without appreciable wheezes, rales or rhonchi. ABDOMEN: Soft, nontender, nondistended. Positive bowel sounds. EXTREMITIES: There is no clubbing, cyanosis or edema. ASA Class: II DESCRIPTION OF PROCEDURE: After confirmation of informed consent, the patient's anesthesia plan was reviewed in detail. Propofol was chosen. Risks and benefits were reviewed and the patient agreed to proceed. At 1143, the patient was given 40 mg of propofol. The patient achieved an appropriate level of sedation and was given a 200 joule synchronized cardioversion by Dr. Ryan at the bedside. This was successful in achieving normal sinus rhythm. The patient was monitored until 1156, at which time she reached her baseline mental status and function. The patient tolerated the procedure well. COMPLICATIONS: None ESTIMATED BLOOD LOSS: None RECOMMENDATIONS: Okay to recover in usual fashion. Procedures Pulmonary Pulmonary Procedures /Diagnostic Testin Con Sedation
== END 2024-04-26 12:47 | disposition home or self-care (01) ==
PROVIDERS: PCP Family Medicine; Referring Provider Internal Medicine Cardiovascular Disease; Visit Provider Internal Medicine Cardiovascular Disease
DX: I48.19 Other persistent atrial fibrillation (principal); Z79.01 Long term (current) use of anticoagulants; Z79.899 Other long term (current) drug therapy; I10 Essential (primary) hypertension
CPT/HCPCS: 92960; 93005; J7040

== ENCOUNTER → 2024-06-29 | Outpatient (CLI) | payer MEDICARE, BC, SELFPAY ==
--- NOTE | 2024-06-29 07:49 | BI_ITS ---
MAMMOGRAPHY - BILATERAL SCREENING REASON FOR EXAM: Female, 68 years old. Routine annual screening examination. PERTINENT HISTORY: Mother with breast cancer. Remote left Stereotactic and left excisional breast biopsies. TECHNIQUE: Digital bilateral breast joaquin (3D mammographic acquisition) in the CC and MLO projections. 2-D mediolateral oblique (MLO) and craniocaudad (CC) views of both breasts were obtained. CAD: Full Field Digital Mammography with Computer Added Detection was performed. COMPARISON: Comparison is made with prior study dated May 05, 2023 and April 30, 2022. FINDINGS: Breast Composition: The breasts are heterogeneously dense, which may obscure small masses. There are no dominant masses or suspicious calcifications. A tissue clip marker is seen in the central lower medial quadrant of the left breast. Stable postoperative changes in the inferior aspect of the left breast. No other significant abnormalities are identified. There has been no significant change since the prior study. BI/SCRN MAMM (CAD)W/JOAQUIN BILAT IMPRESSION: Stable bilateral screening mammogram. Yearly follow-up mammogram recommended. (A) ASSESSMENT CATEGORY: BIRADS Category 2: Benign. A letter regarding these results will be sent to the patient by the facility within 30 days. Approximately 10% of breast cancers are not detected by mammography. A normal mammogram should not delay biopsy of a clinically suspicious abnormality. [id number] Electronically Signed: Matt Cao MD at 8:19 EDT ,
--- NOTE | 2024-06-29 08:03 | BD_ITS ---
STUDY: DUAL ENERGY X-RAY ABSORPTIOMETRY / DXA REASON FOR EXAM: Female, 68 years old. [id number] TECHNIQUE: Bone Mineral Density (BMD) measurements of lumbar spine and bilateral hips were obtained. COMPARISON: Comparison is made with prior study dated April 30, 2021. FINDINGS: Lumbar Spine (L1-L4): g/cm2 (1.056) / T-score (-0.2) / Z-score (1.9) Findings are suggestive of normal bone density with a low fracture risk. Left Femur Total: g/cm2 (0.937) / T-score (0.0) / Z-score (1.4) Left Femoral Neck: g/cm2 (0.735) / T-score (-1.0) / Z-score (0.7) Right Femur Total: g/cm2 (0.966) / T-score (0.2) / Z-score (1.6) Right Femoral Neck: g/cm2 (0.733) / T-score (-1.0) / Z-score (0.7) The T-Scores on the most recent prior examination were: Lumbar Spine (L1-L4): There has been improvement of bone density since the previous examination. Left Femur Total: which represents an improvement of 1%. Right Femur Total: which represents an improvement of 0.5%. BD/Dexa Bone Density Study IMPRESSION: The patient is considered normal as outlined below according to World [place] Organization (WHO) criteria with a low fracture risk. There has been improvement of bone density since the previous examination. Reference Information: The T-score is the number of standard deviations above or below the standard which is normal for young adults at their peak bone mineral density. The World Health Organization (WHO) interprets the T-scores as follows: Above -1 Normal bone density Between -1 and -2.5 Osteopenia Equal to / or below -2.5 Osteoporosis As a practical clinical guideline, osteopenia may be graded as follows: Mild -1 through -1.5 Moderate -1.6 through -2.0 Severe -2.1 through -2.4 The Z-score is the number of standard deviations above or below age-matched controls. A Z-score of less than -1.5 would be considered abnormal. References: 1. NIH Osteoporosis and Related Bone Diseases www osteo.org 2. International Society for Clinical Densitometry www iscd.org 3. National Osteoporosis Foundation www nof.org Electronically Signed: Matt Cao MD at 8:44 EDT ,
== END | disposition home or self-care (01) ==
LOC: OPBD 07:47
PROVIDERS: PCP Family Medicine; Referring Provider Family Medicine; Visit Provider Family Medicine
DX: Z12.31 Encounter for screening mammogram for malignant neoplasm of breast (principal); Z78.0 Asymptomatic menopausal state
CPT/HCPCS: 77063; 77067; 77080

== ENCOUNTER 2024-07-13 10:26 | Day surgery (SDC) | payer MEDICARE, BC, SELFPAY ==
--- NOTE | 2024-06-29 07:45 | RAD_ITS ---
INDICATION: MCMULLEN EXAMINATION/TECHNIQUE: X-RAY - XR Chest 2 Views COMPARISON: None. Findings: Frontal and lateral views of the chest. LUNG PARENCHYMA: No acute focal airspace disease or mass lesion. PLEURA: No pleural effusion. No pneumothorax. HEART/GREAT VESSELS: Cardiomediastinal silhouette is unremarkable. BONES: Osseous structures are unremarkable for age. RAD/Chest PA and Lateral IMPRESSION: Chest with no acute disease. Electronically Signed: Juarez Villaseñor MD at 21:27 EDT ,
[2024-06-29 08:36] LABS: International Normalized Ratio 1.1; Prothrombin Time (Protime)PT. 13.8 SECONDS (11.7-14.9)
[2024-06-29 08:52] LABS: Anion Gap 4 (5-15); BUN 18 mg/dL (7-18); BUN/Creat Ratio 16.8 RATIO (10-20); Calcium,Total 9.6 mg/dL (8.5-10.1); Chloride 107 mmol/L (98-107); Creatinine, Serum 1.07 mg/dL (0.55-1.02); EST Glomerular Filtration Rate 54 mL/min (>60); Est Glom Filt Rate - Afr Amer 65 mL/min (>60); Glucose 106 mg/dL (74-106); Potassium 4.5 mmol/L (3.5-5.1); Sodium Level 140 mmol/L (136-145)
[2024-07-12 09:22] VITALS: BMI 27.8
--- NOTE | 2024-07-12 15:27 | HP.PCM_ITS ---
History and Physical Date of Admission: 07/13/24 Radha Gilbert 69-year-old lady who presents for an outpatient cardioversion. She says that it was unbeknownst to her and she had this unusual feeling with palpitations and fluttering heartbeat. They had been going on for a few days when she saw you and at the time she saw you an EKG that was done did suggest that she was in atrial fibrillation with a rate of 96 bpm. Blood work was done which demonstrated a normal lipid profile as well as TSH. She was put on a beta-clemente and anticoagulation with a [id number] score of 3. She underwent DC cardioversion in April of this year which was successful for a few weeks apparently but she feels that she is back in atrial fibrillation. She did have a stress test on April 24 with demonstrated no evidence of ischemia. Her physical exam today demonstrates clear lung garza irregular rate and rhythm and no pedal edema and her electrocardiogram does confirm that she is in atrial fibrillation. Intake Vital Signs [facility] [employer] Required: No Accompanied by: Is patient in pain?: No Allergies No Known Allergies Allergy (Verified 06/09/24 10:57) Medications: See EMR Have you fallen in the past year?: No [facility] Medical History History of cardioversion Afib Palpitations Thyroid disease Low iron Hypertension History of benign breast biopsy History of meningioma Surgical History History of mandibular surgery History of hysterectomy History of D&C History of tonsillectomy and adenoidectomy Social History Smoking Status: Never smoker alcohol intake: current alcohol intake frequency: holidays/special occasions only ROS Const Const: Positive for fatigue; Negative for weakness, headache(s), daytime sleepiness or difficulty sleeping ENT ENT: Negative for headache(s), dizziness or Nosebleed/epistaxis Cardio Chest Pain: No Palpitations: Yes (mostly in the evenings) feels like its: irregular Edema: None Resp Respiratory: Negative for SOB with activity, SOB at rest, SOB orthopnea\SOB lyin g down or Cough GI GI: Negative nausea, vomiting or heartburn Neuro Neuro: Negative for dizziness, lightheadedness, near syncope, headache(s) or weakness Endo Endo: Positive for fatigue Cardiology Exam Const Appearance: cooperative, healthy appearing, comfortable, no acute distress and well developed Orientation: alert, awake and oriented x3 Head Head: normal to inspection Ears: hearing grossly normal bilaterally Nose: external nose normal Face and Sinus: face symmetric Mouth: oral mucosae normal, lip normal and moist mucous membranes Eyes General: appearance normal, both eyes and all related structures Eyelids: eyelids normal Conjunctivae: conjunctivae normal Pupils: PERRL EOM: EOM intact bilaterally Neck Neck: normal visual inspection and trachea midline; Negative no JVD Carotids: Negative bruit Chest Chest inspection: normal inspection of the chest Auscultation: Bilateral: Clear to Auscultation Cardio Palpation: normal PMI Rhythm: irregularly irregular Heart sounds: S1 normal and S2 normal; Negative rub, gallop or murmur GI GI: soft, no hepatosplenomegaly and bowel sounds present Neuro General: patient alert, patient awake, patient oriented x3 and CN's II-XI intact bilaterally Extremities Pulses: Normal: Right Posterior Tibial Pulse, Left Posterior Tibial Pulse, Right Radial Pulse and Left Radial Pulse Lower Extremity Edema: None: Bilateral Psych Psychological: normal affect Supplemental Info Supplemental Information Echocardiogram 02/08/2024: Normal LV size. Left ventricular systolic function is normal. The estimated ejection fraction is 60 %. Pulmonary artery systolic pressure is 34 mmHg. Structurally normal valves. Stress Test 04/24/24 Conclusion: Normal pharmacologic myocardial perfusion stress test. Preserved ejection fraction. Assessment and Plan Assessment and Plan (1) Afib: Status: Acute Plan: It does appear the patient's atrial fibrillation is persistent. She will continue with her metoprolol and her Eliquis. She does have a [id number] of 3. Stress test was noted to be normal. At her most recent office visit, she was started on flecainide 100 mg p.o. twice daily. She will proceed with cardioversion. If not successful, will consider EP evaluation to consider ablation therapy. (2) Hypertension: Status: Chronic Plan: Her blood pressure is under excellent control at this particular time I would not recommend that we make any major changes.
--- NOTE | 2024-07-13 12:46 | PCM.OP.PRO ---
Procedure Report Date of Procedure: 07/13/24 DC cardioversion. 69-year-old lady with a history of chronic persistent atrial fibrillation.. The patient was brought to cardiac catheterization lab in the postabsorptive nonsedated state. Informed consent was obtained. The patient was seen by Dr. Marcano of the critical care division. Anterior-posterior pads were applied. The patient was administered 40 mg of intravenous propofol. 200 J of synchronized DC cardioversion energy were applied and the patient became briefly asystolic and then eventually converted back to sinus rhythm. Patient tolerated the procedure well. Conclusion: Successful DC cardioversion from atrial fibrillation to sinus rhythm. Continue current medications Follow-up as per office protocol.
--- NOTE | 2024-07-13 13:17 | PRO.PCM_ITS ---
Procedure Report Date of Procedure: 07/13/24 CONSCIOUS SEDATION REPORT DATE OF SERVICE: July 13, 2024 BRIEF HISTORY OF PRESENT ILLNESS: The patient is a 68-year-old female who presented to [facility] for an elective outpatient cardioversion due to underlying atrial fibrillation. The patient did undergo a prior cardioversion in April 2024. The patient denied any history of any prior anesthetic complications. Although she does have a history of obstructive sleep apnea, she does not utilize any form of nocturnal PAP therapy. The patient is a non-smoker, without any history of COPD or asthma. Her last surface echocardiogram demonstrated an ejection fraction of approximately 60%. The patient is systemically anticoagulated on Eliquis. PHYSICAL EXAMINATION: VITAL SIGNS: Reviewed and were acceptable. GENERAL: The patient is a female, in no apparent distress, speaking in full sentences. HEENT: Normocephalic, atraumatic. Mucous membranes are moist and pink. Good mouth opening noted. Trachea is midline. Good neck mobility. CHEST: S1, S2 irregularly irregular. No murmurs, rubs or gallops were noted. LUNGS: Clear to auscultation bilaterally without appreciable wheezes, rales or rhonchi. ABDOMEN: Soft, nontender, nondistended. Positive bowel sounds. EXTREMITIES: There is no clubbing, cyanosis or edema. ASA Class: II DESCRIPTION OF PROCEDURE: After confirmation of informed consent, the patient's anesthesia plan was reviewed in detail. Propofol was chosen. Risks and benefits were reviewed and the patient agreed to proceed. At 1238, the patient was given 40 mg of propofol. The patient achieved an appropriate level of sedation and was given a 200 joule synchronized cardioversion by Dr. Ryan at the bedside. This was successful in achieving normal sinus rhythm. The patient was monitored until 1252, at which time she reached her baseline mental status and function. The patient tolerated the procedure well. COMPLICATIONS: None ESTIMATED BLOOD LOSS: None RECOMMENDATIONS: Okay to recover in usual fashion. Procedures Pulmonary Pulmonary Procedures /Diagnostic Testin Con Sedation
== END 2024-07-13 13:40 | disposition home or self-care (01) ==
PROVIDERS: PCP Family Medicine; Referring Provider Internal Medicine Cardiovascular Disease; Visit Provider Internal Medicine Cardiovascular Disease
DX: I48.19 Other persistent atrial fibrillation (principal); I10 Essential (primary) hypertension; Z79.01 Long term (current) use of anticoagulants
CPT/HCPCS: 36415; 71046; 80048; 85610; 92960; 93005; J7040

== ENCOUNTER → 2024-08-11 | Outpatient (CLI) | payer MEDICARE, BC, SELFPAY ==
[2024-08-11 12:56] LABS: Anion Gap 3 (5-15); BUN 17 mg/dL (7-18); BUN/Creat Ratio 18.6 RATIO (10-20); Calcium,Total 9.3 mg/dL (8.5-10.1); Chloride 107 mmol/L (98-107); Creatinine, Serum 0.91 mg/dL (0.55-1.02); EST Glomerular Filtration Rate 65 mL/min (>60); Est Glom Filt Rate - Afr Amer 78 mL/min (>60); Glucose 104 mg/dL (74-106); Magnesium 2.1 mg/dL (1.6-2.6); Potassium 4.6 mmol/L (3.5-5.1); Sodium Level 137 mmol/L (136-145)
== END | disposition home or self-care (01) ==
LOC: LAB 11:50
PROVIDERS: PCP Family Medicine; Referring Provider Physician Assistant Medical; Visit Provider Physician Assistant Medical
DX: I48.91 Unspecified atrial fibrillation (principal); E07.9 Disorder of thyroid, unspecified
CPT/HCPCS: 36415; 80048; 83735

== ENCOUNTER → 2024-08-16 | Outpatient (CLI) | payer MEDICARE, BC, SELFPAY | END | disposition home or self-care (01) | LOC: PSN 07:02 | PROVIDERS: PCP Family Medicine; Referring Provider Physician Assistant Medical; Visit Provider Physician Assistant Medical | DX: I48.91 Unspecified atrial fibrillation (principal); E07.9 Disorder of thyroid, unspecified | CPT/HCPCS: 93225; 93226 ==

== ENCOUNTER → 2024-09-30 | Outpatient (CLI) | payer MEDICARE, BC, SELFPAY ==
[2024-09-30 08:02] LABS: Mean Corp Hgb Conc 32.5 g/dL (32-36); Mean Corpuscular Hgb 29.7 pg (27.0-32.0); Mean Corpuscular Volume 91.3 fL (81-99); Mean Platelet Vol. 10.8 fl (6.2-12.0); Platelet Count 161 K/mm3 (150-450); RBC Distribution Width CV 12.8 % (11.6-14.6); RBC Distribution Width SD 43.1 fl (35.1-43.9); Red Blood Count 4.38 M/mm3 (4.2-5.4); White Blood Count 5.9 K/mm3 (4.4-11.0)
[2024-09-30 08:33] LABS: Anion Gap 4 (5-15); BUN 19 mg/dL (7-18); BUN/Creat Ratio 18.6 RATIO (10-20); Chloride 109 mmol/L (98-107); Creatinine, Serum 1.02 mg/dL (0.55-1.02); EST Glomerular Filtration Rate 57 mL/min (>60); Est Glom Filt Rate - Afr Amer 69 mL/min (>60); Glucose 105 mg/dL (74-106); Potassium 4.5 mmol/L (3.5-5.1); Sodium Level 141 mmol/L (136-145)
== END | disposition home or self-care (01) ==
LOC: LAB 07:48
PROVIDERS: PCP Family Medicine
DX: Z01.818 Encounter for other preprocedural examination (principal); I48.91 Unspecified atrial fibrillation
CPT/HCPCS: 36415; 80048; 85027

== ENCOUNTER → 2024-12-06 | Outpatient (CLI) | payer MEDICARE, BC, SELFPAY ==
[2024-12-06 09:22] LABS: Hematocrit 36.1 % (37-47); Mean Corp Hgb Conc 33.2 g/dL (32-36); Mean Corpuscular Hgb 30.3 pg (27.0-32.0); Mean Corpuscular Volume 91.2 fL (81-99); Mean Platelet Vol. 11.6 fl (6.2-12.0); Platelet Count 147 K/mm3 (150-450); RBC Distribution Width CV 12.6 % (11.6-14.6); RBC Distribution Width SD 41.8 fl (35.1-43.9); Red Blood Count 3.96 M/mm3 (4.2-5.4); White Blood Count 4.9 K/mm3 (4.4-11.0)
[2024-12-06 09:56] LABS: Anion Gap 6 (5-15); BUN 13 mg/dL (7-18); BUN/Creat Ratio 14.4 RATIO (10-20); Chloride 108 mmol/L (98-107); EST Glomerular Filtration Rate 66 mL/min (>60); Est Glom Filt Rate - Afr Amer 80 mL/min (>60); Glucose 105 mg/dL (74-106); Potassium 4.3 mmol/L (3.5-5.1); Sodium Level 140 mmol/L (136-145)
== END | disposition home or self-care (01) ==
LOC: LAB 08:40
PROVIDERS: PCP Family Medicine
DX: Z01.812 Encounter for preprocedural laboratory examination (principal); I48.11 Longstanding persistent atrial fibrillation
CPT/HCPCS: 36415; 80048; 85027

== ENCOUNTER → 2025-01-12 | Outpatient (CLI) | payer MEDICARE, BC, SELFPAY ==
[2025-01-12 14:40] LABS: AST(SGOT) 24 U/L (<=31); Alanine Aminotransfer ALT/SGPT 23 U/L (<=34); Albumin, Serum 4.2 g/dL (3.4-4.8); Alkaline Phosphatase 83 U/L (35-104); Bilirubin, Direct 0.26 mg/dL (0.00-0.30); Globulin 3.1 g/dL (2.2-4.2); Protein, Total 7.3 g/dL (5.9-8.4); Total Bilirubin 0.62 mg/dL (0.00-1.30)
== END | disposition home or self-care (01) ==
LOC: LAB 13:26
PROVIDERS: PCP Family Medicine
DX: Z79.899 Other long term (current) drug therapy (principal)
CPT/HCPCS: 36415; 80076; 84439; 84443

== ENCOUNTER → 2025-01-22 | Outpatient (CLI) | payer MEDICARE, BC, SELFPAY | END | disposition home or self-care (01) | PROVIDERS: PCP Family Medicine | DX: Z79.899 Other long term (current) drug therapy (principal) | CPT/HCPCS: 94060; 94726; 94729 ==

== ENCOUNTER → 2025-05-19 | Outpatient (CLI) | payer MEDICARE, BC, SELFPAY ==
--- OUTSIDE RECORDS SUMMARY | 2025-05-19 09:26 | XMS RPT_ITS | CCD ---
Author Organization [facility] CliniSyil Care Team Providers Care Provider Relations Representative Name Role Phone Dr. Connor Anderson Primary Care Provider Dr. Storm Ryan Attending Provider Dr. David Anderson Primary Care Provider Dr. David Anderson Referring Provider Dr. Storm Ryan Attending Provider Generic Provider MD, No Assigned Pcp Primary Car e Provider Unavailable Generic Provider MD, No Assigned Pcp Primary Car e Provider Unavailable David Anderson MD Primary Care Provide r GENERIC PROVIDER, NO ASSIGNED PCP Primary Care Unavailable REINA MONET H Admitting Unavailable KRYSTINA BRONSON Attending Unavailable VIRGILIO, LASHONDA G Referring Unavailable DAVID ANDERSON Primary Care Unavail able Dr. David Anderson MD Primary Care Provider THAL LASHONDA Attending Provider [phone] THAL, LASHONDA Referring Provider [phone] TORIN LASHONDA Attending Provider [phone] Dr. Storm Ryan MD Other Provider Dr. David Anderson MD Referring Provider Joy Shah Attending Provider BARBADIAN LASHONDA Attending Provider BARBADIAN, LASHONDA Referring Provider Dr. David Anderson MD Primary Care Provider THAL LASHONDA Attending Provider [phone] THAL, LASHONDA Referring Provider Justin CARLSON, Dr. Maldonado Primary Care Provider Dr. Storm Ryan MD Other Provider Jeet DOLAN, Dr. Jaquez Attending Provider BARBADIAN, LASHONDA Referring Provider Unavailable Justin CARLSON, Dr. Maldonado Referring Provider Joy Shah Attending Provider [phone] RHIANNANCH, LUBA Referring Unavailable HINCH, LUBA Attending Unavailable Ranney, Christopher Primary Care Unavailable Connor, Chambers Consulting Unavailable Connor, Chambers Referring Unavailable Leonid Marcano Attending Unavailable Ranney, Christopher Primary Care Unavailable Connor, Storm Consulting Unavailable Connor, Storm Attending Unavailable Ranney, Christopher Primary Care Unavailable Ranney, Christopher Referring Unavailable Ranney, Christopher Referring Unavailable Joy Shah Attending Unavail able Ranney, Christopher Primary Care Unavailable Ranney, Christopher Primary Care Unavailable Joy Shah Attending Unavail able Ranney, Christopher Referring Unavailable Ranney, Christopher Referring Unavailable Ranney, Christopher Primary Care Unavailable Joy Shah Attending Unavail able Ranney, Christopher Referring Unavailable Ranney, Christopher Primary Care Unavailable Joy Shah Attending Unavail able HINCH LUBA Referring Unavailable BrownLeonid Attending Unavailable Ranney, Christopher Primary Care Unavailable Ranney, Christopher Primary Care Unavailable Connor, Chambers Attending Unavailable Joy Shah Referring Unavail able Connor, Storm Attending Unavailable Ranney, Christopher Primary Care Unavailable Connor, Chambers Consulting Unavailable Connor, Chambers Referring Unavailable Connor, Storm Referring Unavailable Ranney, Christopher Primary Care Unavailable Connor, Storm Attending Unavailable Connor, Storm Consulting Unavailable HINCH, LUBA Attending Unavailable RHIANNANCH, LUBA Referring Unavailable Ranney, Christopher Primary Care Unavailable Connor, Chambers Consulting Unavailable Ranney, Christopher Primary Care Unavailable Joy Shah Attending Unavail able Joy Shah Referring Unavail able Ranney, Christopher Primary Care Unavailable Joy Shah Attending Unavail able Joy Shah Referring Unavail able Connor, Storm Attending Unavailable [facility] Primary Care Unavailable Connor, Chambers [facility] Primary Care Unavailable [facility] Referring Unavailable RHIANNANCH, LUBA Referring Unavailable HIDIANE, LUBA Attending Unavailable [facility] Primary Care Unavailable HINCH, LUBA Attending Unavailable [facility] Primary Care Unavailable Connor, Storm Consulting Unavailable HELEN ORTIZ Referring Unavailable [facility] Primary Care Unavail able THAL, LASHONDA G Attending Unavailable THAL, LASHONDA G Referring Unavailable [facility] Primary Care Unavail able THAL, LASHONDA G Attending Unavailable GENERIC PROVIDER, NO ASSIGNED PCP Primary Care Unavailable THAL, LASHONDA G Referring Unavailable THAL, LASHONDA G Referring Unavailable [facility] Primary Care Unavail able THAL, LASHONDA G Referring Unavailable [facility] Primary Care Unavail able THAL, LASHONDA G Attending Unavailable [facility] Primary Care Unavail able THAL, LASHONDA G Attending Unavailable GENERIC PROVIDER, NO ASSIGNED PCP Primary Care Unavailable THAL, LASHONDA G Referring Unavailable THAL, LASHONDA G Admitting Unavailable THAL, LASHONDA G Attending Unavailable [facility] Primary Care Unavail able Medications Current Medications Medication Drug Class(es) Dates Sig (Normalized) Sig (Original) apixaban 5 mg oral tablet (19 sources) Factor Xa Inhibitor Start: 02-02-2024 End: 03-27-2024 take 1 tablet by mouth twice daily Apixaban (Eliquis) 5 mg tablet Active 5 mg PO TWICE A DAY March 27, 2024 10:05am calcium carbonate 1500 mg / cholecalciferol 200 unt oral capsule (6 sources) Vitamin D Start: 06-21-2023 Calcium Carbonate-Vitamin D3 (Calcium 600 + D(3)) 600 mg-5 mcg (200 unit) capsule Active 2 NMA PO DAILY June 21, 2023 12:00am colchicine 0.6 mg oral tablet (2 sources) Start: 10-15-2024 End: 11-06-2024 take 1 tablet by mouth twice daily colchicine 0.6 mg tablet Indications: Other acute pericarditis (HHS-HCC) Take 1 tablet (0.6 mg) by mouth 2 times a day for 21 days. 42 tablet 10/16/2024 11/06/2024 Active doxycycline hyclate 100 mg oral tablet (5 sources) Tetracycline-cla ss Drug Start: 12-14-2024 End: 12-21-2024 take 100 mg by mouth every twelve hours 100 mg, oral, Every 12 hours scheduled, First dose on Nohelia 12/14/24 at 2100, For 7 days, [facility], Suspected Indication (Select all that apply): Surgical Prophylaxis, Indications: Surgical Prophylaxis Start: 12-14-2024 End: 12-21-2024 take 1 capsule by mouth every twelve hours doxycycline (Vibramycin) 100 mg capsule Indications: Surgical Prophylaxis Take 1 capsule (100 mg) by mouth every 12 hours for 7 days. Take with a full glass of water and do not lie down for at least 30 minutes after. 14 capsule 12/14/2024 12/21/2024 Active estradiol 0.5 mg oral tablet (16 sources) Estrogen Start: 08-30-2024 estradiol (Est race) 0.5 mg tablet 1 tablet (0.5 mg). 1/2 tablet vaginal twice a week 08/30/2024 Active Start: 06-21-2023 Estradiol 0.5 mg tablet Active 0.25 mg PO Q4D June 21, 2023 12:00am Start: 06-21-2023 Estradiol Acti ve 0.25 MG PO Q4D June 21, 2023 12:00am levothyroxine sodium 0.05 mg oral tablet (18 sources) l-Thyroxine Start: 06-21-2023 take 1 tablet by mouth once daily Levothyroxine 50 mcg tablet Active 50 ug PO DAILY June 21, 2023 12:00am lidocaine 0.04 mg/mg medicated patch (1 source) Antiarrhythmic, Amide Local Anesthetic Start: 10-14-2024 apply 1 dose transdermal route once daily 1 patch, transdermal, Administer over 12 Hours, Daily, First dose on 10/14/24 at 0900, Apply to area of pain. Patch will remain on for 12 hours, then removed for [address] patch directly over any surgical incisions or wounds. lisinopril 10 mg oral tablet (20 sources) Angiotensin Converting Enzyme Inhibitor Start: 12-13-2024 take 2 tablets by mouth once daily Lisinopril 10 mg tablet Active 20 mg PO DAILY December 13, 2024 9:41am Start: 10-16-2024 End: 12-16-2024 take 1 tablet by mouth once daily lisinopril 20 mg tablet Indications: Primary hypertension Take 1 tablet (20 mg) by mouth once daily. 30 tablet 1 10/17/2024 Active Start: 10-15-2024 End: 10-15-2024 take 10 mg by mouth once daily 10 mg, oral, Daily, Fir st dose on 10/15/24 at 0900 Start: 06-21-2023 End: 12-13-2024 take 1 tablet by mouth once daily Lisinopril 10 mg tablet Discontinued 10 mg PO DAILY June 21, 2023 12:00am December 13, 2024 9:43am melatonin 3 mg oral tablet (2 sources) Start: 12-14-2024 Start: 10-13-2024 take 3 mg by mouth once daily 3 mg, oral, Daily, First dose on Wed10/13/24 at 2345 metoprolol tartrate 50 mg oral tablet (20 sources) beta-Adrenergic Clemente Start: 12-14-2024 take 50 mg by mouth twice daily 50 mg, oral, 2 times daily, First dose on Nohelia 12/14/24 at 2100, [facility] Start: 12-13-2024 take [address] [facility] twice daily Metoprolol Tartrate 25 mg tablet Active 50 mg PO TWICE A DAY December 13, 2024 9:41am Start: 10-15-2024 take 1 tablet by [facility] every six hours 12.5 mg, oral, Every 6 hours, First dose on 10/15/24 at 1315 Start: 08-10-2024 End: 11-15-2024 take 1 tablet by mouth every twelve hours metoprolol tartrate (Lopressor) 25 mg tablet Take 1 tablet (25 mg) by mouth every 12 hours. 08/10/2024 11/15/2024 Discontinued (Therapy completed) Start: 03-14-2024 End: 12-13-2024 take 1 tablet by mouth twice daily Metoprolol Tartrate 25 mg tablet Discontinued 25 mg PO TWICE A DAY 180 May 15, 2024 8:38am December 13, 2024 9:43am Start: 02-02-2024 End: 03-14-2024 Metoprolol Tartrate 25 mg ta blet Discontinued 12.5 mg PO TWICE A DAY February 02, 2024 3:42pm March 14, 2024 1:59pm Start: 02-02-2024 take 12.5 mg by mout h twice daily Metoprolol Tartrate Active 12.5 MG PO TWICE A DAY February 02, 2024 3:42pm Start: 02-02-2024 End: 02-02-2024 take 1 tablet by mouth twice daily Metoprolol Tartrate 25 mg tablet Discontinued 25 mg PO TWICE A DAY February 02, 2024 12:00am February 02, 2024 3:42pm Multivitamin preparation (1 source) Start: 02-02-2024 take 1 tablet by mouth once daily Multivitamin Active 1 TABLET PO DAILY February 02, 2024 12:00am Multivitamin tablet (3 sources) Start: 02-02-2024 Multivitamin tablet Active 1 {tbl} PO DAILY February 02, 2024 12:00am nitroglycerin 0.4 mg sublingual tablet (1 source) Nitrate Vasodilator Start: 10-15-2024 0.4 mg, sublingual, Every 5 min PRN, chest pain, Starting on 10/15/24 at 0748, May administer up to 3 doses per episode. Ondansetron (1 source) Serotonin-3 Receptor Antagonist Start: 12-14-2024 take 1 tablet by mouth every eight hours as needed ondansetron (Zofran) tablet 4 mg polyethylene glycol 3350 [id number] mg powder for oral solution (1 source) Osmotic Laxative Start: 10-15-2024 take 17 g by mouth every twenty-four hours as needed 17 g, oral, Daily PRN, constipation, Starting on 10/15/24 at 1603 spironolactone 25 mg oral tablet (1 source) Aldosterone Antagonist Start: 05-03-2025 take 1 tablet by mouth once daily Spironolactone 25 mg tablet Active 25 mg PO DAILY May 03, 2025 12:00am traMADol hydrochloride 50 mg oral tablet (2 sources) Opioid Agonist Start: 12-14-2024 End: 12-18-2024 take 1 tablet by mouth every six hours for pain traMADol (Ultram) 50 mg tablet Indications: Status post placement of cardiac pacemaker Take 1 tablet (50 mg) by mouth every 6 hours if needed for severe pain (7 - 10) for up to 3 days. 12 tablet 12/15/2024 12/18/2024 Active triamcinolone acetonide 1 mg/ml topical cream (10 sources) Corticosteroid Start: 10-14-2023 triamcinolone (Kenalog) 0.1 % cream Apply topically. PRN 10/14/2023 Active Completed/Discontinued Medications Medication Drug Class(es) Dates Sig (Normalized) Sig (Original) acetaminophen 325 mg oral tablet (8 sources) Start: 12-14-2024 End: 04-30-2025 take 2 tablets by mouth every four hours for pain acetaminophen (Tylenol) 325 mg tablet Indications: Status post placement of cardiac pacemaker Take 2 tablets (650 mg) by mouth every 4 hours if needed for mild pain (1 - 3) or moderate pain (4 - 6). 12/14/2024 04/30/2025 Discontinued (Therapy completed) Start: 12-14-2024 take 1 tablet by ann th every four hours as needed acetaminophen (Tylenol) tablet 650 mg Start: 10-13-2024 take 1 tablet by ann th every six hours as needed 975 mg, oral, Every 6 hours PRN, pain mild (1-3), first line, pain moderate (4-6), first line, Starting on Wed10/13/24 at 2327, If ordered PRN for pain, nurse is permitted to administer this medication for higher pain scores based on patient preference? Yes amiodarone hydrochloride 200 mg oral tablet (12 sources) Antiarrhythmic Start: 01-10-2025 End: 01-10-2026 take 1 tablet by mouth once daily amiodarone (Pacerone) 200 mg tablet Indications: On amiodarone therapy Take 1 tablet (200 mg) by mouth once daily. 90 tablet 3 01/10/2025 04/30/2025 Discontinued (Therapy completed) Start: 12-15-2024 End: 12-29-2025 take 2 tablets by mouth twice daily, then take 1 tablet by mouth twice daily, then take 1 tablet by mouth once daily amiodarone (Pacerone) 200 mg tablet Indications: Longstanding persistent atrial fibrillation (Multi) Take 2 tablets (400 mg) by mouth 2 times a day for 7 days, THEN 1 tablet (200 mg) 2 times a day for 7 days, THEN 1 tablet (200 mg) once daily. 132 tablet 12/15/2024 01/10/2025 Discontinued (Therapy completed) Start: 12-14-2024 take 400 mg by mouth twice daily 400 mg, oral, 2 times daily, First dose on Nohelia 12/14/24 at 2100, Recovery [facility] On Unit biotin 10 mg oral capsule (6 sources) Start: 06-21-2023 End: 04-25-2024 take 1 capsule by mouth once daily Biotin 10,000 mcg capsule Discontinued 84436 ug PO DAILY June 21, 2023 12:00am April 25, 2024 9:10am ceFAZolin 1000 mg injection (1 source) Cephalosporin Antibacterial Start: 12-14-2024 End: 12-14-2024 1 g, intravenous, at 100 mL/hr, Administer over 30 Minutes, Once, On Nohelia 12/14/24 at 1100, For 1 dose, Preprocedure, Administer within 60 minutes prior to incision. premix bag, Dosing of this medication varies based on severity of illness. Does this patient have sepsis or concern for sepsis (probable or documented infection plus systemic manifestations of infection)? No, Suspected Indication (Select all that apply): Surgical Prophylaxis, Indications: Surgical Prophylaxis flecainide acetate 100 mg oral tablet (9 sources) Antiarrhythmic Start: 06-09-2024 End: 12-13-2024 take 1 tablet by mouth every twelve hours Flecainide 100 mg tablet Discontinued 100 mg PO Q12H 60 July 03, 2024 1:58pm December 13, 2024 9:42am 100 ml magnesium sulfate 40 mg/ml injection (1 source) Start: 10-15-2024 End: 10-15-2024 4 g, intravenous, at 25 mL/hr, Administer over 4 Hours, Once, On 10/15/24 at 0700, For 1 dose pantoprazole 40 mg delayed release oral tablet (12 sources) Proton Pump Inhibitor Start: 12-13-2024 End: 05-03-2025 take 1 tablet by mouth once daily Pantoprazole 40 mg tablet,delayed release (DR/EC) Discontinued 40 mg PO daily December 13, 2024 1:00am May 03, 2025 8:16am Start: 10-16-2024 End: 01-10-2025 take 1 tablet by mouth twice daily before mealtime pantoprazole (ProtoNix) 40 mg EC tablet Indications: Unspecified atrial fibrillation (Multi) , Other acute pericarditis (HHS-HCC) Take 1 tablet (40 mg) by mouth 2 times a day before meals. Do not crush, chew, or split. 60 tablet 1 10/16/2024 01/10/2025 Discontinued (Therapy completed) potassium phosphates 15 mmol in dextrose 5% 250 mL IV (1 source) Start: 10-16-2024 End: 10-16-2024 15 mmol, intravenous, at 63.8 mL/hr, Administer over 4 Hours, Once, On 10/16/24 at 0830, For 1 dose, Each 3 mmol contains 4.4 mEq potassium. potassium, sodium phosphates (Phos-NaK) 280-160-250 mg packet 1 packet (1 source) Start: 10-15-2024 End: 10-15-2024 take 6.9 mEq by mouth four times daily 1 packet, oral, 4 times daily, First dose on 10/15/24 at 0715, For 2 doses, mg dosing is based on phosphorus component. Each packet contains 250 mg elemental phosphorus, 7.1 mEq potassium, and 6.9 mEq sodium. Problems Active Problems Problem Classification Problem Date Documented Da te Episodic/Chronic Cardiac dysrhythmias (20 sources) Atrial fibrillation; Translations: [Unspecified atrial fibrillation] Onset: 08-02-2024 02-02-2024 Chronic Conduction disorders (20 sources) Heart block ; Translations: [Conduction disorder, unspecified] Onset: 10-13-2024 10-15-2024 Chronic Essential hypertension (20 sources) Hypertensive disorder; Translations: [Essential (primary) hypertension] Onset: 10-13-2024 01-13-2024 Chronic Nutritional deficiencies (5 sources) Serum iron low; Translations: [Iron deficiency] 01-13-2024 Episodic Other aftercare (2 sources) Drug therapy finding; Translations: [Other fdc (current) drug therapy] 01-10-2025 Episodic Other lower respiratory disease (3 sources) Dyspnea on exertion; Translations: [Other forms of dyspnea] 03-14-2024 Episodic Kelly-; endo-; and myocarditis; cardiomyopathy (except that caused by tuberculosis or sexually transmitted disease) (3 sources) Acute pericarditis; Translations: [Other forms of acute pericarditis] Onset: 10-13-2024 10-16-2024 Episodic Residual codes; unclassified (3 sources) History of cardioversion; Translations: [Personal history of other medical treatment] 12-13-2024 Episodic Thyroid disorders (10 sources) Acquired hypothyroidism; Translations: [Hypothyroidism, unspecified] Onset: 10-13-2024 10-13-2024 Chronic Thyroid disorders (5 sources) Disorder of thyroid gland; Translations: [Disorder of thyroid, unspecified] 01-13-2024 Episodic Unclassified (7 sources) Age AND/OR growth finding; Translations: [65 years of age or older] 07-28-2021 Unclassified (4 sources) Longstanding persistent atrial fibrillation; Translations: [Longstanding persistent atrial fibrillation (Multi)] Onset: 10-13-2024 Unclassified (1 source) Drug therapy finding 01-10-2025 Unclassified (3 sources) Other persistent atrial fibrillation; Translations: [Other persistent atrial fibrillation] Onset: 12-13-2024 Viral infection (7 sources) Disease caused by 2019-nCoV; Translations: [COVID-19] 07-28-2021 Episodic Past or Other Problems Problem Classification Problem Date Documented Da te Episodic/Chronic Cardiac dysrhythmias (17 sources) Palpitations; Translations: [Palpitations] Onset: 08-02-2024 01-13-2024 Episodic Other aftercare (3 sources) 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; Translations: [Other fdc (current) drug therapy] Onset: 01-10-2025 Episodic Other lower respiratory disease (2 sources) Other forms of dyspnea; Translations: [Other forms of dyspnea] Onset: 06-09-2024 Episodic Other screening for suspected conditions (not mental disorders or infectious disease) (1 source) Encounter for screening mammogram for malignant neoplasm of breast; Translations: [Encounter for screening mammogram for malignant neoplasm of breast] Onset: 2024 Episodic Residual codes; unclassified (1 source) Personal history of other medical treatment; Translations: [Personal history of other medical treatment] Onset: 06-09-2024 Episodic Unclassified (10 sources) Onset: 09-13-2024 Resolved: 04-30-2025 09-13-2024 Results Test Name Value Interpretation Reference Range Facility Cardiology Visit Reporton Cardiology Visit Report [facility] [address] [place] [address] OFFICE VISIT Date of Service: 05/03/25 MR#: [id number] Acct: [id number] Name: RADHA THOMAS Rep #: [id number] : 1955 Provider: PAOLO Ruiz Age/Sex: 69/F Location: [facility] Status: Signed HPI HPI History of Present Illness Details: Radha Thomas 69-year-old lady who presented for evaluation of her recent episode of palpitations. She says that it was unbeknownst to her and she had this unusual feeling with palpitations and fluttering heartbeat. They had been going on for a few days when she saw you and at the time she saw you an EKG that was done did suggest that she was in atrial fibrillation with a rate of 96 bpm. Blood work was done which demonstrated a normal lipid profile as well as TSH. She was put on a beta-clemente and anticoagulation with a [id number] score of 3. Patient did undergo a stress test in April 2024 this demonstrated atrial fibrillation with no evidence of ischemia. She did undergo a cardioversion in April 2024, unfortunately she did not maintain sinus rhythm. She was then started on flecainide. Did undergo a cardioversion and unfortunately did not maintain sinus rhythm. She has been referred to EP for a possible ablation. She did have a Holter monitor in August which demonstrated 100% atrial fibrillation with an average heart rate of 79 beats. Patient was seen by EP at [facility]. Patient did undergo an ablation in October at This was complicated by sinus node dysfunction requiring a temporary pacemaker for a few days. Unfortunately she did not maintain sinus rhythm. Pt did undergo a PPM in 12/2024 with a cardioversion. She has still been fatigued since then. She does have SOB with exertion. She just had some PPM adjustments made. Hopefully this will help with her symptoms. She does occasionally still have palpitations. No Afib was noted on her monitor. Intake Vital Signs 12/13/24 08:36 05/03/25 08:13 Height 5 ft 5 in 5 ft 5 in Weight: 187 lb BMI 31.1 BP 149/86 H Blood Pressure Location Lt brachial Position Sitting Respiration 16 Pulse 69 Pulse Source Monitor Intake Visit Reasons: 3 M FU PER MMM Commercial Driver Required: No Accompanied by: Self Is patient in pain?: No Allergies No Known Allergies Allergy (Verified 05/03/25 08:15) Medications ???Medication ???Instructions ???Recorded ???Confirmed ???Type calcium 600 mg (as 2 cap PO DAILY 06/21/23 05/03/25 H istory carbonate)-vitamin D3 5 mcg (200 unit) capsule (Calcium 600 + D(3)) estradiol 0.5 mg tablet 0.25 mg PO Q4D 06/21/23 05/03/25 H istory levothyroxine 50 mcg tablet 50 mcg PO DAILY 06/21/23 05/03/25 History multivitamin 1 tab PO DAILY 02/02/24 05/03/25 H istory apixaban 5 mg tablet (Eliquis) 5 mg PO BID #180 tabs 03/27/24 Rx lisinopril 10 mg tablet 20 mg PO DAILY 12/13/24 05/03/25 H istory metoprolol tartrate 25 mg tablet 50 mg PO BID 12/13/24 05/03/25 His tory spironolactone 25 mg tablet 25 mg PO DAILY #30 tabs 05/03/25 0 05/03/25 Rx Ejection fraction %: 60 Have you fallen in the past year?: No PFSH Medical History (Updated 05/03/25 @ 08:44 by Joy Baltazar PA, PA) Hx of cardiac pacemaker PAF (paroxysmal atrial fibrillation) Persistent atrial fibrillation History of cardioversion Palpitations Thyroid disease Low iron Hypertension History of benign breast biopsy History of meningioma Surgical History S/P placement of cardiac pacemaker History of mandibular surgery History of hysterectomy History of D C History of tonsillectomy and adenoidectomy Social History Smoking Status: Never smoker alcohol intake: current alcohol intake frequency: holidays/special occasions only ROS Const Const: Positive for fatigue; Negative for weakness Eyes Eyes: Negative for change in vision ENT ENT: Negative for dizziness or balance problems Cardio Chest Pain: No Palpitations: Yes (had pacemaker adjusted tues and maybe improving) Edema: None Resp Respiratory: Positive for SOB with activity; Negative for SOB at rest or SOB orthopnea SOB lying down GI GI: Negative nausea or heartburn Musc Musc: Negative for balance problems Neuro Neuro: Negative for dizziness, lightheadedness, near syncope, syncope or weakness Endo Endo: Positive for fatigue Cardiology Exam Const Appearance: cooperative, healthy appearing, comfortable, no acute distress and well developed Orientation: alert, awake and oriented x3 Head Head: normal to inspection Ears: hearing grossly normal bilaterally Nose: external nose normal Face and Sinus: face s (more content not included)... Normal [facility] ECG 12-LEADon 04-30-2025 ECG 12-LEAD Ventricular Rate 70 Atrial Rate 70 P-R Interval 360 QRS Duration 86 Q-T Interval 416 QTC Calculation(Bazett) 449 P [place] 38 R [place] 44 T [place] 61 QRS Count 12 Q Onset 223 P Onset 43 P Offset 115 T Offset 431 QTC Fredericia 438 Diagnosis Electronic atrial pacemaker When compared with ECG of 10-JAN-2025 15:05, Electronic atrial pacemaker has replaced Electronic ventricular pacemaker Confirmed by Lashonda Beltrán ([id number]) on 05/01/2025 9:28:25 AM Normal [facility] Bilirubin directon 5 Bilirubin.direct [Mass/Vol] 0.26 mg/dL 0.00-0.30 [facility] Bilirubin, totalon 5 Bilirubin [Mass/Vol] 0.62 mg/dL 0.00-1.30 [facility] - Chemistry and C hemistry - challengeon 01-12-2025 AST [Catalytic activity/Vol] 24 U/L <32 [facility] Liver Profileon 01-12-2025 Albumin [Mass/Vol] 4.2 g/dL Normal 3.4-4.8 [facility] Comment on above: Performed By: #### L 500.3400, L506.0400, L501.9520 ####[facility] [address] [place], [place], [id number] ALK PHOS 83 U/L Normal 35-104 [facility] Comment on above: Performed By: #### L 500.3400, L506.0400, L501.9520 ####[facility] [address] [place], [address] ALT [Catalytic activity/Vol] 23 U/L Normal <=34 [facility] Comment on above: Performed By: #### L 500.3400, L506.0400, L501.9520 ####[facility] [address] [place], [address] AST [Catalytic activity/Vol] 24 U/L Normal <=31 [facility] Comment on above: Performed By: #### L 500.3400, L506.0400, L501.9520 ####[facility] [address] [place], [address] Bilirubin [Mass/Vol] 0.62 mg/dL Normal 0.00-1.30 [facility] Comment on above: Performed By: #### L 500.3400, L506.0400, L501.9520 ####[facility] [address] [place], [address] Bilirubin.direct [Mass/Vol] 0.26 mg/dL Normal 0.00-0.30 [facility] Comment on above: Performed By: #### L 500.3400, L506.0400, L501.9520 ####[facility] [address] [place], [address] Globulin (S) [Mass/Vol] 3.1 g/dL Normal 2.2-4.[address] [facility] Comment on above: Performed By: #### L 500.3400, L506.0400, L501.9520 ####[facility] [address] [place], [address] T PROT 7.3 g/dL Normal 5.9-8.4 [facility] Comment on above: Performed By: #### L 500.3400, L506.0400, L501.9520 ####[facility] [address] [place], [place], [address] Serum globulin measurementon 01-12-2025 Globulin (S) [Mass/Vol] 3.1 g/dL 2.2-4.2 [facility] Serum or plasma alanine osborn otransferase (ALT) measurementon 01-12-2025 ALT [Catalytic activity/Vol] 23 U/L <35 [facility] Serum or plasma albumin tripp urement (mass/volume)on 01-12-2025 Albumin [Mass/Vol] 4.2 g/dL 3.4-4.8 [facility] Serum or plasma alkaline chioma sphatase measurementon 01-12-2025 ALP [Catalytic activity/Vol] 83 U/L 35-104 [facility] T4 Free Directon 01-12-2025 T4 FREE DIRECT 1.50 ng/dL High 0.76-1.46 [facility] Comment on above: Performed By: #### L 500.3400, L506.0400, L501.9520 ####[facility] [address] [place], [place], [address] T4 freeon 01-12-2025 Free T4 [Mass/Vol] 1.50 ng/dL High 0.76-1.46 [facility] TSH DL <= 0.005 mIU/L Qnon 0 01-12-2025 Thyroid Stimulating Hormone (TSH) 3.370 uIU/mL 0.300-4.200 [facility] TSH Qn 3.370 uIU/mL 0.300-4.200 [facility] Thyroid Stim Hormone (TSH)on 01-12-2025 TSH 3.370 uIU/mL Normal 0.300-4.200 [facility] Comment on above: Performed By: #### L 500.3400, L506.0400, L501.9520 ####[facility] [address] [place], [place], [address] Total proteinon 03-07-2025 Protein [Mass/Vol] 7.3 g/dL 5.9-8.4 [facility] ECG 12-LEADon 01-10-2025 ECG 12-LEAD Ventricular Rate 70 Atrial Rate 70 QRS Duration 180 Q-T Interval 484 QTC Calculation(Bazett) 522 R [place] -71 T [place] 101 QRS Count 12 Q Onset 196 T Offset 438 QTC Fredericia 509 Diagnosis AV sequential or dual chamber electronic pacemaker When compared with ECG of 14-DEC-2024 15:26, Electronic ventricular pacemaker has replaced Electronic atrial pacemaker Confirmed by Lashonda Beltrán ([id number]) on 01/10/2025 4:36:47 PM Normal [facility] Basic metabolic 2000 panelon 12-15-2024 Anion gap [Moles/Vol] 11 mmol/L 10 - 2 0 mmol/L [facility] Calcium [Mass/Vol] 8.9 mg/dL 8.6 - 10. 3 mg/dL [facility] Chloride [Moles/Vol] 106 mmol/L 98 - 10 7 mmol/L [facility] CO2 [Moles/Vol] 21 mmol/L 21 - 32 mmol/L [facility] Creatinine [Mass/Vol] 0.94 mg/dL 0.50 - 1.05 mg/dL [facility] GFR/1.73 sq M.predicted among non-blacks MDRD (S/P/Bld) [Vol rate/Area] 66 mL/min/{1.73_m2} [facility] Comment on above: Calculations of denia mated GFR are performed using the 2020 CKD-EPI Study Refit equation without the race variable for the IDMS-Traceable creatinine methods. https://jasn.asnjournals.org/content/early//ASN.2020 099156 Glucose [Mass/Vol] 163 mg/dL High 74 - 99 mg/dL [facility] Interpretation and review of laboratory results Abnormal [facility] Potassium [Moles/Vol] 4.2 mmol/L 3.5 - 5.3 mmol/L [facility] Sodium [Moles/Vol] 134 mmol/L Low 136 - 145 mmol/L [facility] Urea nitrogen [Mass/Vol] 18 mg/dL 6 - 23 mg/dL [facility] Anion gap [Moles/Vol] 11 mmol/L Normal 10-20 [facility] Comment on above: Performed By: #### 2 4321-2 #### LUKE KIMBLE ([id number]) [facility] ([facility]) [address] [place] [address] Calcium [Mass/Vol] 8.9 mg/dL Normal 8.6-10.3 [facility] Comment on above: Performed By: #### 2 4321-2 #### LUKE KIMBLE ([id number]) [facility] ([facility]) [address] [place] [address] Chloride [Moles/Vol] 106 mmol/L Normal 98-107 [facility] Comment on above: Performed By: #### 2 4321-2 #### LUKE KIMBLE ([id number]) [facility] ([facility]) [address] [place] [address] CO2 [Moles/Vol] 21 mmol/L Normal 21-32 [facility] Comment on above: Performed By: #### 2 4321-2 #### LUKE KIMBLE ([id number]) [facility] ([facility]) [address] [place] [address] Creatinine [Mass/Vol] 0.94 mg/dL Normal 0.50-1.05 [facility] Comment on above: Performed By: #### 2 4321-2 #### LUKE KIMBLE ([id number]) [facility] ([facility]) [address] [place] [address] Glomerular filtration rate/1.73 sq M.predicted 66 mL/min/1.73m*2 Normal >60 [facility] Comment on above: Result Comment: Calc ulations of estimated GFR are performed using the 2020 CKD-EPI Study Refit equation without the race variable for the IDMS-Traceable creatinine methods. https://jasn.asnjournals.org/content/early//ASN.2020 363272 Performed By: #### 2 1-2 #### LUKE KIMBLE ([id number]) [facility] ([facility]) [address] [place] [address] Glucose [Mass/Vol] 163 mg/dL High 74-99 [facility] Comment on above: Performed By: #### 2 4321-2 #### LUKE KIMBLE ([id number]) [facility] ([facility]) [address] [place] [address] Potassium [Moles/Vol] 4.2 mmol/L Normal 3.5-5.3 [facility] Comment on above: Performed By: #### 2 4321-2 #### LUKE KIMBLE ([id number]) [facility] ([facility]) [address] [place] [id number] Sodium [Moles/Vol] 134 mmol/L Low 136-145 [facility] Comment on above: Performed By: #### 2 4321-2 #### LUKE KIMBLE ([id number]) [facility] ([facility]) [address] [place] [id number] Urea nitrogen [Mass/Vol] 18 mg/dL Normal 6-23 [facility] Comment on above: Performed By: #### 2 4321-2 #### LUKE KIMBLE ([id number]) [facility] ([facility]) [address] [place] [phone] CBC panel Auto (Bld)on 12-15 Erythrocyte distribution width (RBC) [Ratio] 12.8 % 11.5 - 14.5 % [facility] Hematocrit (Bld) [Volume fraction] 36.3 % 36.0 - 46.0 % [facility] Hemoglobin (Bld) [Mass/Vol] 11.7 g/dL Low 12.0 - 16.0 g/dL [facility] Interpretation and review of laboratory results Abnormal [facility] MCH (RBC) [Entitic mass] 29.7 pg 26.0 - 34.0 pg [facility] MCHC (RBC) [Mass/Vol] 32.2 g/dL 32.0 - 36.0 g/dL [facility] MCV (RBC) [Entitic vol] 92 fL 80 - 100 fL [facility] Nucleated RBC/100 WBC (Bld) [Ratio] 0 % [facility] Platelets (Bld) [#/Vol] 142 10*3/uL Low [facility] RBC (Bld) [#/Vol] 3.94 10*6/uL Low [facility] WBC (Bld) [#/Vol] 7.4 10*3/uL [facility] Erythrocyte distribution width (RBC) [Ratio] 12.8 % Normal 11.5-14.5 [facility] Comment on above: Performed By: #### 5 8410-2 #### LUKE KIMBLE ([id number]) [facility] ([facility]) [address] [place] [address] Hematocrit (Bld) [Volume fraction] 36.3 % Normal 36.0-46.0 [facility] Comment on above: Performed By: #### 5 8410-2 #### LUKE KIMBLE ([id number]) [facility] ([facility]) [address] [place] [address] Hemoglobin (Bld) [Mass/Vol] 11.7 g/dL Low 12.0-16.0 [facility] Comment on above: Performed By: #### 5 8410-2 #### LUKE KIMBLE ([id number]) [facility] ([facility]) [address] [place] [address] MCH (RBC) [Entitic mass] 29.7 pg Normal 26.0-34.0 [facility] Comment on above: Performed By: #### 5 8410-2 #### LUKE KIMBLE ([id number]) [facility] ([facility]) [address] [place] [address] MCHC (RBC) [Mass/Vol] 32.2 g/dL Normal 32.0-36.0 [facility] Comment on above: Performed By: #### 5 8410-2 #### LUKE KIMBLE ([id number]) [facility] ([facility]) [address] [place] [address] MCV (RBC) [Entitic vol] 92 fL Normal 80-100 [facility] Comment on above: Performed By: #### 5 8410-2 #### LUKE KIMBLE ([id number]) [facility] ([facility]) [address] [place] [phone] Nucleated RBC/100 WBC (Bld) [Ratio] 0.0 /100 WBCs Normal 0.0-0.0 [facility] Comment on above: Performed By: #### 5 8410-2 #### LUKE KIMBLE ([id number]) [facility] ([facility]) [address] [place] [phone] Platelets (Bld) [#/Vol] 142 x10*3/uL Low 150-450 [facility] Comment on above: Performed By: #### 5 8410-2 #### LUKE KIMBLE ([id number]) [facility] ([facility]) [address] [place] [address] RBC (Bld) [#/Vol] 3.94 x10*6/uL Low 4.00-5.20 [facility] Comment on above: Performed By: #### 5 8410-2 #### LUKE KIMBLE ([id number]) [facility] ([facility]) [address] [place] [phone] WBC (Bld) [#/Vol] 7.4 x10*3/uL Normal 4.4-11.3 [facility] Comment on above: Performed By: #### 5 8410-2 #### LUKE KIMBLE ([id number]) [facility] ([facility]) [address] [place], [place] [phone] XR CHEST 2 VIEWSon XR CHEST 2 VIEWS Interpreted By: Candido Reza, STUDY: XR CHEST 2 VIEWS; 12/15/2024 8:35 am INDICATION: Signs/Symptoms:s/p device implant r/o pneumothorax and ensure lead placement intact. COMPARISON: 10/16/2024 ACCESSION NUMBER(S): [id number] ORDERING CLINICIAN: HELEN ORTIZ FINDINGS: CARDIOMEDIASTINAL SILHOUETTE: Cardiomediastinal silhouette is normal in size and configuration. Cardiac pacer. LUNGS: Lungs are clear. ABDOMEN: No remarkable upper abdominal findings. BONES: No acute osseous changes. Discogenic degenerative changes. IMPRESSION: 1. No evidence of acute cardiopulmonary process. MACRO: None Signed by: Candido Reza 12/15/2024 9:18 AM Dictation workstation: [id number] [facility] Comment on above: Order Comment: Wet r ead. Discharge pending film. XR Chest 2 Viewson 5 1. No evidence of acute cardiopulmonary process. MACRO: None Signed by: Candido Reza 12/15/2024 9:18 AM Dictation workstation: [id number] Interpreted By: Candido Reza, STUDY: XR CHEST 2 VIEWS; 12/15/2024 8:35 am INDICATION: Signs/Symptoms:s/p device implant r/o pneumothorax and ensure lead placement intact. COMPARISON: 10/16/2024 ACCESSION NUMBER(S): [id number] ORDERING CLINICIAN: HELEN ORTIZ FINDINGS: CARDIOMEDIASTINAL SILHOUETTE: Cardiomediastinal silhouette is normal in size and configuration. Cardiac pacer. LUNGS: Lungs are clear. ABDOMEN: No remarkable upper abdominal findings. BONES: No acute osseous changes. Discogenic degenerative changes. [facility] MMODAL Candido Reza MD - 12/15/2024 Interpreted By: Candido Reza, STUDY: XR CHEST 2 VIEWS; 12/15/2024 8:35 am INDICATION: Signs/Symptoms:s/p device implant r/o pneumothorax and ensure lead placement intact. COMPARISON: 10/16/2024 ACCESSION NUMBER(S): [id number] ORDERING CLINICIAN: HELEN ORTIZ FINDINGS: CARDIOMEDIASTINAL SILHOUETTE: Cardiomediastinal silhouette is normal in size and configuration. Cardiac pacer. LUNGS: Lungs are clear. ABDOMEN: No remarkable upper abdominal findings. BONES: No acute osseous changes. Discogenic degenerative changes. IMPRESSION: 1. No evidence of acute cardiopulmonary process. MACRO: None Signed by: Candido Reza 12/15/2024 9:18 AM Dictation workstation: [id number] [facility] Work Phone: Radiology Study observation (narrative) [facility] Work Phone: XR Chest 2 ViewsOrdered By: Candido Reza on 12-15-2024 [facility] Work Phone: ECG 12-LEADon 12-14-2024 ECG 12-LEAD Ventricular Rate 70 Atrial Rate 68 QRS Duration 82 Q-T Interval 390 QTC Calculation(Bazett) 421 R [place] 24 T [place] 47 QRS Count 12 Q Onset 224 T Offset 419 QTC Fredericia 410 Diagnosis Electronic atrial pacemaker When compared with ECG of 15-NOV-2024 14:46, Electronic atrial pacemaker has replaced Atrial fibrillation Confirmed by Lashonda Beltrán ([id number]) on 12/28/2024 8:36:37 AM Normal [facility] Electrophysiology studyOrder ed By: Lashonda Beltrán on 12-14-2024 [facility] Work Phone: Cardiology Visit Reporton Cardiology Visit Report [facility] [place] [address] OFFICE VISIT Date of Service: 12/13/24 MR#: [id number] Acct: [id number] Name: RADHA THOMAS Rep #: [id number] : 1955 Provider: PAOLO Ruiz Age/Sex: 69/F Location: [facility] Status: Signed HPI HPI History of Present Illness Details: Radha Thomas 69-year-old lady who presented for evaluation of her recent episode of palpitations. She says that it was unbeknownst to her and she had this unusual feeling with palpitations and fluttering heartbeat. They had been going on for a few days when she saw you and at the time she saw you an EKG that was done did suggest that she was in atrial fibrillation with a rate of 96 bpm. Blood work was done which demonstrated a normal lipid profile as well as TSH. She was put on a beta-clemente and anticoagulation with a BET7YT4-TKXl score of 3. Patient did undergo a stress test in April 2024 this demonstrated atrial fibrillation with no evidence of ischemia. She did undergo a cardioversion in April 2024, unfortunately she did not maintain sinus rhythm. She was then started on flecainide. Did undergo a cardioversion and unfortunately did not maintain sinus rhythm. She has been referred to EP for a possible ablation. She did have a Holter monitor in August which demonstrated 100% atrial fibrillation with an average heart rate of 79 beats. Patient was seen by EP at [facility]. Patient did undergo an ablation in October at This was complicated by sinus node dysfunction requiring a temporary pacemaker for a few days. Unfortunately she did not maintain sinus rhythm. She has had further discussion with EP, she is scheduled to undergo a pacemaker placement tomorrow with a cardioversion at that time.She is in the process of being scheduled for an ablation. She still does have fatigue and shortness of breath with exertion. She is hoping that this improves with her pacemaker and cardioversion. Intake Vital Signs 09/14/24 08:39 12/13/24 08:36 Height 5 ft 5 in 5 ft 5 in Weight: 173 lb BMI 28.8 BP 120/80 Blood Pressure Location Lt brachial Position Sitting Respiration 18 Pulse 78 Pulse Source Monitor Pulse Oximetry (%) 96 Intake Visit Reasons: 4 M Commercial [employer] Required: No Is patient in pain?: No Allergies No Known Allergies Allergy (Verified 12/13/24 08:36) Medications ???Medication ???Instructions ???Recorded ???Confirmed ???Type calcium 600 mg (as 2 cap PO DAILY 06/21/23 12/13/24 H istory carbonate)-vitamin D3 5 mcg (200 unit) capsule (Calcium 600 + D(3)) estradiol 0.5 mg tablet 0.25 mg PO Q4D 06/21/23 12/13/24 H istory levothyroxine 50 mcg tablet 50 mcg PO DAILY 06/21/23 12/13/24 History multivitamin 1 tab PO DAILY 02/02/24 12/13/24 H istory apixaban 5 mg tablet (Eliquis) 5 mg PO BID #180 tabs 03/27/2404/01 Rx lisinopril 10 mg tablet 20 mg PO DAILY 12/13/24 12/13/24 H istory metoprolol tartrate 25 mg tablet 50 mg PO BID 12/13/24 12/13/24 His tory pantoprazole 40 mg tablet,delayed 40 mg PO QDAY 12/13/24 12/13/24 H istory release Ejection fraction %: 60 Have you fallen in the past year?: No PFSH Medical History (Updated 12/13/24 @ 17:02 by Joy BOONE, PA) Persistent atrial fibrillation History of cardioversion Palpitations Thyroid disease Low iron Hypertension History of benign breast biopsy History of meningioma Surgical History History of mandibular surgery History of hysterectomy History of D C History of tonsillectomy and adenoidectomy Social History Smoking Status: Never smoker alcohol intake: current alcohol intake frequency: holidays/special occasions only ROS Const Const: Positive for fatigue (no good, tired all the time); Negative for weakness Eyes Eyes: Negative for transient loss of vision or change in vision ENT ENT: Negative for balance problems Cardio Chest Pain: No Palpitations: Yes (sometimes) Edema: None Muscle aches with walking: None Resp Respiratory: Positive for SOB with activity; Negative for SOB at rest or SOB orthopnea SOB lying down GI GI: Negative heartburn, bright, red blood in stools or black,tarry stools : Negative for hematuria Musc Musc: Negative for muscle aches/ myalgia, muscle weakness, joint pain or balance problems Neuro Neuro: Negative for weakness Endo Endo: Positive for fatigue (no good, tired all the time) Cardiology Exam Const Appearance: cooperative, healthy appearing, comfortable, no acute distress and well developed Orientation: alert, awake and oriented x3 Head Head: normal to inspection (more content not included)... Normal [facility] Basic Metabolic Profile (BMP )on 12-06-2024 BUN/CRE 14.4 RATIO Normal 10-20 [facility] Comment on above: Order Comment: BRIAN LANZA WANTS RESULTS TO GO TO DR. RYAN AND DR ANDERSON Performed By: #### L 500.2500, L100.0500 ####[facility] [address] [place], [address] CA,Total 9.0 mg/dL Normal 8.5-10.1 [facility] Comment on above: Order Comment: BRIAN LANZA WANTS RESULTS TO GO TO DR. RYAN AND DR ANDERSON Performed By: #### L 500.2500, L100.0500 ####[facility] [address] [place], [address] Chloride [Moles/Vol] 108 mmol/L High 98-107 [facility] Comment on above: Order Comment: BRIAN POOL WANTS RESULTS TO GO TO DR. RYAN AND DR ANDERSON Performed By: #### L 500.2500, L100.0500 ####[facility] [address] [place], [address] CO2 [Moles/Vol] 26.0 mmol/L Normal 21.0-32.0 [facility] Comment on above: Order Comment: LYNETTEKannan POOL WANTS RESULTS TO GO TO DR. RYAN AND DR ANDERSON Performed By: #### L 500.2500, L100.0500 ####[facility] [address] [place], [address] Creatinine [Mass/Vol] 0.90 mg/dL Normal 0.55-1.02 [facility] Comment on above: Order Comment: BRIAN POOL WANTS RESULTS TO GO TO DR. RYAN AND DR ANDERSON Result Comment: The validity of the calculated GFR GFRAA in patients over 70 years has not been determined. Clinical correlation is essential. Performed By: #### L 500.2500, L100.0500 ####[facility] [address] [place], [address] EST GFR - AA 80 mL/min Normal >60 [facility] Comment on above: Order Comment: BRIAN POOL WANTS RESULTS TO GO TO DR. RYAN AND DR ANDERSON Result Comment: Afri can Algerian GFR Calc Performed By: #### L 500.2500, L100.0500 ####[facility] [address] [place], [address] GAP 6 Normal 5-15 [facility] Comment on above: Order Comment: BRIAN LANZA WANTS RESULTS TO GO TO DR. RYAN AND DR ANDERSON Performed By: #### L 500.2500, L100.0500 ####[facility] [address] [place], [address] GFR/1.73 sq M.predicted among non-blacks MDRD (S/P/Bld) [Vol rate/Area] 66 mL/min/{1.73_m2} Normal >60 [facility] Comment on above: Order Comment: BRIAN POOL WANTS RESULTS TO GO TO DR. RYAN AND DR ANDERSON Result Comment: Non- GFR Calc Performed By: #### L 500.2500, L100.0500 ####[facility] [address] [place], [address] Glucose [Mass/Vol] 105 mg/dL Normal 74-106 [facility] Comment on above: Order Comment: BRIAN LANZA WANTS RESULTS TO GO TO DR. RYAN AND DR ANDERSON Result Comment: Fast ing Glucose result from 100 to 125 mg/dL suggests IMPAIRED HOMEOSTASIS per A.D.A. criteria. Performed By: #### L 500.2500, L100.0500 ####[facility] [address] [place], [address] Potassium [Moles/Vol] 4.3 mmol/L Normal 3.5-5.1 [facility] Comment on above: Order Comment: BRIAN LANZA WANTS RESULTS TO GO TO DR. RYAN AND DR ANDERSON Performed By: #### L 500.2500, L100.0500 ####[facility] [address] [place], [address] Sodium [Moles/Vol] 140 mmol/L Normal 136-145 [facility] Comment on above: Order Comment: BRIAN LANZA WANTS RESULTS TO GO TO DR. RYAN AND DR ANDERSON Performed By: #### L 500.2500, L100.0500 ####[facility] [address] [place], [address] Urea nitrogen [Mass/Vol] 13 mg/dL Normal 7-18 [facility] Comment on above: Order Comment: BRIAN POOL WANTS RESULTS TO GO TO DR. RYAN AND DR ANDERSON Performed By: #### L 500.2500, L100.0500 ####[facility] [address] [place], [address] Blood urea nitrogen (BUN)/cr eatinine ratioon 12-06-2024 Urea nitrogen/Creatinine [Mass ratio] 14.4 mg/mg 10-20 [facility] CBC-Complete Blood Cnt No Di ffon 12-06-2024 Erythrocyte distribution width (RBC) [Ratio] 12.6 % Normal 11.6-14.6 [facility] Comment on above: Order Comment: BRIAN POOL WANTS RESULTS TO GO TO DR. RYAN AND DR ANDERSON Performed By: #### L 500.2500, L100.0500 ####[facility] [address] [place], [address] Hematocrit (Bld) [Volume fraction] 36.1 % Low 37-47 [facility] Comment on above: Order Comment: BRIAN POOL WANTS RESULTS TO GO TO DR. DARCI ANDERSON Performed By: #### L 500.2500, L100.0500 ####[facility] [address] [place], [address] Hemoglobin (Bld) [Mass/Vol] 12.0 g/dL Normal 12.0-15.0 [facility] Comment on above: Order Comment: BRIAN NT WANTS RESULTS TO GO TO DR. DARCI ANDERSON Performed By: #### L 500.2500, L100.0500 ####[facility] [address] [place], [address] MCH (RBC) [Entitic mass] 30.3 pg Normal 27.0-32.0 [facility] Comment on above: Order Comment: BRIAN POOL WANTS RESULTS TO GO TO DR. RYAN AND DR ANDERSON Performed By: #### L 500.2500, L100.0500 ####[facility] [address] [place], [address] MCHC (RBC) [Mass/Vol] 33.2 g/dL Normal 32-36 [facility] Comment on above: Order Comment: BRIAN LANZA WANTS RESULTS TO GO TO DR. RYAN AND DR ANDERSON Performed By: #### L 500.2500, L100.0500 ####[facility] [address] [place], [address] MCV (RBC) [Entitic vol] 91.2 fL Normal 81-[address] [facility] Comment on above: Order Comment: BRIAN NT WANTS RESULTS TO GO TO DR. RYAN AND DR ANDERSON Performed By: #### L 500.2500, L100.0500 ####[facility] [address] [place], [address] Platelet mean volume (Bld) [Entitic vol] 11.6 fL Normal 6.2-12.0 [facility] Comment on above: Order Comment: BRIAN NT WANTS RESULTS TO GO TO DR. RYAN AND DR ANDERSON Performed By: #### L 500.2500, L100.0500 ####[facility] [address] [place], [address] Platelets (Bld) [#/Vol] 147 10*3/uL Low 150-450 [facility] Comment on above: Order Comment: BRIAN NT WANTS RESULTS TO GO TO DR. RYAN AND DR ANDERSON Performed By: #### L 500.2500, L100.0500 ####[facility] [address] [place], [address] RBC (Bld) [#/Vol] 3.96 10*6/uL Low 4.2-5.4 [facility] Comment on above: Order Comment: BRIAN NT WANTS RESULTS TO GO TO DR. RYAN AND DR ANDERSON Performed By: #### L 500.2500, L100.0500 ####[facility] [address] [place], [address] RDW SD 41.8 fl Normal 35.1-43.9 [facility] Comment on above: Order Comment: LYNETTEKannan POOL WANTS RESULTS TO GO TO DR. RYAN AND DR ANDERSON Performed By: #### L 500.2500, L100.0500 ####[facility] [address] [place], [address] WBC (Bld) [#/Vol] 4.9 10*3/uL Normal 4.4-11.0 [facility] Comment on above: Order Comment: LYNETTEKannan POOL WANTS RESULTS TO GO TO DR. RYAN AND DR ANDERSON Performed By: #### L 500.2500, L100.0500 ####[facility] [address] [place], [address] Carbon dioxide measurementon 12-06-2024 CO2 [Moles/Vol] 26.0 mmol/L 21.0-32.0 [facility] Chloride measurementon 12-06 Chloride [Moles/Vol] 108 mmol/L High 98-107 [facility] Erythrocyte distribution wid th ratioon 12-06-2024 Erythrocyte distribution width (RBC) [Ratio] 12.6 % 11.6-14.6 [facility] Erythrocyte distribution wid th standard deviationon 12-06-2024 Erythrocyte distribution width (RBC) [Entitic vol] 41.8 fL 35.1-43.9 [facility] Estimated glomerular filtrat ion rate (GFR) Americanon 12-06-2024 Estimated GFR (MDRD) Amer 80 mL/min >60 [facility] Comment on above: GFR Calc Glomerular filtration rate ( GFR) estimationon 12-06-2024 Estimated GFR (MDRD) Non-Af Amer 66 mL/min >60 [facility] Comment on above: Non- GFR Calc Glucose measurementon 2024 Glucose [Mass/Vol] 105 mg/dL 74-106 [facility] Comment on above: Fasting Glucose resu lt from 100 to 125 mg/dL suggests IMPAIRED HOMEOSTASIS per A.D.A. criteria. Hematocrit Auto (Bld) [Volum e fraction]on 12-06-2024 Hematocrit (Bld) [Volume fraction] 36.1 % Low 37-47 [facility] Hemoglobin measurementon Hemoglobin (Bld) [Mass/Vol] 12.0 g/dL 12.0-15.0 [facility] MCV (mean corpuscular volume ) determinationon 12-06-2024 MCV (RBC) [Entitic vol] 91.2 fL 81-99 [facility] Mean corpuscular hemoglobin (MCH) determinationon 12-06-2024 MCH (RBC) [Entitic mass] 30.3 pg 27.0-32.0 [facility] Mean corpuscular hemoglobin concentration (MCHC) determinationon 12-06-2024 MCHC (RBC) [Mass/Vol] 33.2 g/dL 32-36 [facility] Mean platelet volume determi nationon 12-06-2024 Platelet mean volume (Bld) [Entitic vol] 11.6 fL 6.2-12.0 [facility] Platelet counton 12-06-2024 Platelets (Bld) [#/Vol] 147 10*3/uL Low 150-450 [facility] Potassium measurementon 11-09 Potassium [Moles/Vol] 4.3 mmol/L 3.5-5.1 [facility] RBC Auto (Bld) [#/Vol]on RBC (Bld) [#/Vol] 3.96 10*6/uL Low 4.2-5.4 [facility] Serum anion gap measuremento n 12-06-2024 Anion gap [Moles/Vol] 6 mmol/L 5-15 [facility] Serum or plasma calcium tripp urement (mass/volume)on 12-06-2024 Calcium [Mass/Vol] 9.0 mg/dL 8.5-10.1 [facility] Serum or plasma creatinine m easurement (mass/volume)on 12-06-2024 Creatinine [Mass/Vol] 0.90 mg/dL 0.55-1.02 [facility] Comment on above: The validity of the calculated GFR & GFRAA in patients over 70 years has not been determined. Clinical correlation is essential. Serum or plasma urea nitroge n measurement (mass/volume)on 12-06-2024 Urea nitrogen [Mass/Vol] 13 mg/dL 7-18 [facility] Sodium levelon 12-06-2024 Sodium [Moles/Vol] 140 mmol/L 136-145 [facility] White blood cell (WBC) count on 12-06-2024 WBC (Bld) [#/Vol] 4.9 10*3/uL 4.4-11.0 [facility] ECG 12-LEADon 11-15-2024 ECG 12-LEAD Ventricular Rate 91 Atrial Rate 96 QRS Duration 80 Q-T Interval 354 QTC Calculation(Bazett) 435 R [place] 26 T [place] 48 QRS Count 15 Q Onset 221 T Offset 398 QTC Fredericia 407 Diagnosis Atrial fibrillation Abnormal ECG When compared with ECG of 16-OCT-2024 09:44, Nonspecific T wave abnormality, improved in Inferior leads T wave inversion no longer evident in Anterior leads Confirmed by Lashonda Beltrán ([id number]) on 11/16/2024 8:51:44 AM Normal [facility] CBC panel Auto (Bld)on 10-16 Erythrocyte distribution width (RBC) [Ratio] 12.4 % 11.5 - 14.5 % [facility] Hematocrit (Bld) [Volume fraction] 30.8 % Low 36.0 - 46.0 % [facility] Hemoglobin (Bld) [Mass/Vol] 10.6 g/dL Low 12.0 - 16.0 g/dL [facility] Interpretation and review of laboratory results Abnormal [facility] MCH (RBC) [Entitic mass] 29.7 pg 26.0 - 34.0 pg [facility] MCHC (RBC) [Mass/Vol] 34.4 g/dL 32.0 - 36.0 g/dL [facility] MCV (RBC) [Entitic vol] 86 fL 80 - 100 fL [facility] Nucleated RBC/100 WBC (Bld) [Ratio] 0 % [facility] Platelets (Bld) [#/Vol] 104 10*3/uL Low [facility] RBC (Bld) [#/Vol] 3.57 10*6/uL [facility] WBC (Bld) [#/Vol] 7.2 10*3/[facility] Erythrocyte distribution width (RBC) [Ratio] 12.4 % Normal 11.5-14.5 [facility] Comment on above: Performed By: #### 2 341-6 #### TEOFILO Flowers ([id number]) [facility] ([facility]) [id number] [place] [address] Hematocrit (Bld) [Volume fraction] 30.8 % Low 36.0-46.0 [facility] Comment on above: Performed By: #### 2 341-6 #### TEOFILO Flowers ([id number]) [facility] ([facility]) [id number] [place] [address] Hemoglobin (Bld) [Mass/Vol] 10.6 g/dL Low 12.0-16.0 [facility] Comment on above: Performed By: #### 2 341-6 #### TEOFILO Flowers ([id number]) [facility] ([facility]) [id number] [place] [address] MCH (RBC) [Entitic mass] 29.7 pg Normal 26.0-34.0 [facility] Comment on above: Performed By: #### 2 341-6 #### TEOFILO Flowers ([id number]) [facility] ([facility]) [address] [place] [address] MCHC (RBC) [Mass/Vol] 34.4 g/dL Normal 32.0-36.0 [facility] Comment on above: Performed By: #### 2 341-6 #### TEOFILO Flowers ([id number]) [facility] ([facility]) [id number] [place] [address] MCV (RBC) [Entitic vol] 86 fL Normal 80-100 [facility] Comment on above: Performed By: #### 2 341-6 #### TEOFILO Flowers ([id number]) [facility] ([facility]) [address] [place] [address] 418[address] Nucleated RBC/100 WBC (Bld) [Ratio] 0.0 /100 WBCs Normal 0.0-0.0 [facility] Comment on above: Performed By: #### 2 341-6 #### TEOFILO Flowers ([id number]) [facility] ([facility]) [address] [place] [address] Platelets (Bld) [#/Vol] 104 x10*3/uL Low 150-450 [facility] Comment on above: Performed By: #### 2 341-6 #### TEOFILO GUTHRIE L ([id number]) [facility] ([facility]) [id number] [place] [address] RBC (Bld) [#/Vol] 3.57 x10*6/uL Low 4.00-5.20 [facility] Comment on above: Performed By: #### 2 341-6 #### TEOFILO GUTHRIE L ([id number]) [facility] ([facility]) [address] [place] [address] WBC (Bld) [#/Vol] 7.2 x10*3/uL Normal 4.4-11.3 [facility] Comment on above: Performed By: #### 2 341-6 #### TEOFILO Flowers ([id number]) [facility] ([facility]) [id number] [place] [address] ECG 12-LEADon 10-16-2024 ECG 12-LEAD Ventricular Rate 92 Atrial Rate 91 QRS Duration 92 Q-T Interval 366 QTC Calculation(Bazett) 452 R [place] 19 T [place] 268 QRS Count 15 Q Onset 224 T Offset 407 QTC Fredericia 422 Diagnosis Atrial fibrillation Nonspecific ST and T wave abnormality Abnormal ECG When compared with ECG of 15-OCT-2024 13:02, No significant change was found Confirmed by Lashonda Beltrán ([id number]) on 10/16/2024 12:16:39 PM Normal [facility] Electrocardiogram, 12-lead P RN ACS symptomsOrdered By: Lashonda Beltrán on 10-16-2024 Atrial Rate 91 BPM [facility] Work Phone: Q Onset 224 ms [facility] Work Phone: QRS Count 15 beats [facility] Work Phone: QRS Duration 92 ms [facility] Work Phone: QT Interval 366 ms [facility] Work Phone: QTC Calculation(Bazett) 452 ms U [facility] Work Phone: QTC Fredericia 422 ms [facility] Work Phone: R [place] 19 degrees [facility] Work Phone: T [place] 268 degrees [facility] Work Phone: T Offset 407 ms [facility] Work Phone: Ventricular Rate 92 BPM [facility] Work Phone: [facility] Work Phone: Electrocardiogram, 12-lead P RN ACS symptomson 10-16-[address] and T wave abnormality Abnormal ECG When compared with ECG of 15-OCT-2024 13:02, No significant change was found Confirmed by Lashonda Beltrán ([id number]) on 10/16/2024 12:16:39 PM MUSE Lashonda Beltrán MD - 10/16/[address] and T wave abnormality Abnormal ECG When compared with ECG of 15-OCT-2024 13:02, No significant change was found Confirmed by Lashonda Beltrán ([id number]) on 10/16/2024 12:16:39 PM [facility] Work Phone: Magnesiumon 10-16-2024 Magnesium [Mass/Vol] 2.12 mg/dL 1.60 - 2.40 mg/dL [facility] Magnesium [Mass/Vol] 2.12 mg/dL Normal 1.60-2.40 [facility] Comment on above: Performed By: #### 2 341-6 #### TEOFILO Flowers ([id number]) [facility] ([facility]) [address] [place] [address] Magnesium [Mass/Vol]on 10-16 Interpretation and review of laboratory results Normal [facility] No Panel Informationon 10-16 [facility] Renal function 2000 panelon 10-16-2024 Albumin BCP dye [Mass/Vol] 3.4 g/dL 3.4 - 5.0 g/dL [facility] Anion gap [Moles/Vol] 12 mmol/L 10 - 2 0 mmol/L [facility] Calcium [Mass/Vol] 8.2 mg/dL Low 8.6 - 10. 6 mg/dL [facility] Chloride [Moles/Vol] 108 mmol/L High 98 - 10 7 mmol/L [facility] CO2 [Moles/Vol] 23 mmol/L 21 - 32 mmol/L [facility] Creatinine [Mass/Vol] 0.62 mg/dL 0.50 - 1.05 mg/dL [facility] eGFR - PINF [facility] Comment on above: Calculations of denia mated GFR are performed using the 2020 CKD-EPI Study Refit equation without the race variable for the IDMS-Traceable creatinine methods. https://jasn.asnjournals.org/content/early//ASN.2020 765059 Glucose [Mass/Vol] 111 mg/dL High 74 - 99 mg/dL [facility] Interpretation and review of laboratory results Abnormal [facility] Phosphate [Mass/Vol] 2 mg/dL Low 2.5 - 4 .9 mg/dL [facility] Comment on above: The performance marc acteristics of phosphorus testing in heparinized plasma have been validated by the individual laboratory site where testing is performed. Testing on heparinized plasma is not approved by the FDA; however, such approval is not necessary. Potassium [Moles/Vol] 3.9 mmol/L 3.5 - 5.3 mmol/L [facility] Sodium [Moles/Vol] 139 mmol/L 136 - 145 mmol/L [facility] Urea nitrogen [Mass/Vol] 9 mg/dL 6 - 23 mg/dL [facility] Albumin BCP dye [Mass/Vol] 3.4 g/dL Normal 3.4-5.0 [facility] Comment on above: Performed By: #### 1 9123-9 #### TEOFILO Flowers ([id number]) [facility] ([facility]) [address] [place] [address] Anion gap [Moles/Vol] 12 mmol/L Normal 10-20 [facility] Comment on above: Performed By: #### 1 9123-9 #### TEOFILO GUTHRIE L ([id number]) [facility] ([facility]) [id number] [place] [address] Calcium [Mass/Vol] 8.2 mg/dL Low 8.6-10.6 [facility] Comment on above: Performed By: #### 1 9123-9 #### TEOFILO Flowers ([id number]) [facility] ([facility]) [id number] [place] [address] Chloride [Moles/Vol] 108 mmol/L High 98-107 [facility] Comment on above: Performed By: #### 1 9123-9 #### TEOFILO Flowers ([id number]) [facility] ([facility]) [id number] [place] [address] CO2 [Moles/Vol] 23 mmol/L Normal 21-32 [facility] Comment on above: Performed By: #### 1 9123-9 #### TEOFILO Flowers ([id number]) [facility] ([facility]) [id number] [place] [address] Creatinine [Mass/Vol] 0.62 mg/dL Normal 0.50-1.05 [facility] Comment on above: Performed By: #### 1 9123-9 #### TEOFILO GUTHRIE L ([id number]) [facility] ([facility]) [id number] [place] [address] 46644 GFR/1.73 sq M.predicted MDRD (S/P/Bld) [Vol rate/Area] mL/min/{1.73_m2} Normal >60 [facility] Comment on above: Result Comment: Calc ulations of estimated GFR are performed using the 2020 CKD-EPI Study Refit equation without the race variable for the IDMS-Traceable creatinine methods. https://jasn.asnjournals.org/content//ASN.2020 749450 Performed By: #### 1 9123-9 #### TEOFILO Flowers ([id number]) [facility] ([facility]) [address] [place] [address] Glucose [Mass/Vol] 111 mg/dL High 74-99 [facility] Comment on above: Performed By: #### 1 9123-9 #### TEOFILO Flowers ([id number]) [facility] ([facility]) [address] [place] [address] Phosphate [Mass/Vol] 2.0 mg/dL Low 2.5-4.9 [facility] Comment on above: Result Comment: The performance characteristics of phosphorus testing in heparinized plasma have been validated by the individual laboratory site where testing is performed. Testing on heparinized plasma is not approved by the FDA; however, such approval is not necessary. Performed By: #### 1 9123-9 #### TEOFILO Flowers ([id number]) [facility] ([facility]) [address] [place] [address] Potassium [Moles/Vol] 3.9 mmol/L Normal 3.5-5.3 [facility] Comment on above: Performed By: #### 1 9123-9 #### TEOFILO GUTHRIE L ([id number]) [facility] ([facility]) [address] [place] [address] Sodium [Moles/Vol] 139 mmol/L Normal 136-145 [facility] Comment on above: Performed By: #### 1 9123-9 #### TEOFILO GUTHRIE L ([id number]) [facility] ([facility]) [address] [place] [address] Urea nitrogen [Mass/Vol] 9 mg/dL Normal 6-23 [facility] Comment on above: Performed By: #### 1 9123-9 #### TEOFILO VILLALOBOSMOTZER L ([id number]) [facility] ([facility]) [address] [place] [id number] US Heart TransthoracicOrdere d By: Colton Valle on 10-16-2024 LV EF 58 % [facility] Work Phone: [facility] Work Phone: US Heart Transthoracicon [facility], [address] [place], [place] [phone] and TRANSTHORACIC ECHOCARDIOGRAM REPORT Patient Name: RADHA THOMAS Reading Physician: [id number] Colton Valle MD Study Date: 10/15/2024 Ordering Provider: [id number] KRYSTINA BRONSON MRN/PID: [id number] Fellow: Nurse: Date of /Age: 8 1955 / 69 years Flask Handler: Gender assigned at F Additional Staff: : Height: Admit Date: 10/13/2024 Weight: Admission Status: Inpatient - Routine BSA / BMI: m2 / kg/m2 Study Type: TRANSTHORACIC ECHO (TTE) LIMITED Diagnosis/ICD: Longstanding persistent AFib-I48.11 CPT Code: Echo Limited-77294; Doppler Limited-37791; Color Doppler-64090 Study Detail: The following Echo studies were performed: 2D, Doppler and color flow. PHYSICIAN INTERPRETATION: Left Ventricle: The left ventricular systolic function is normal, with a visually estimated ejection fraction of 55-60%. There are no regional left ventricular wall motion abnormalities. The left ventricular cavity size is normal. Left ventricular diastolic filling was not assessed. Left Atrium: The left atrium is enlarged. Right Ventricle: The right ventricle is normal in size. There is normal right ventricular global systolic function. A device is visualized in the right ventricle. Right Atrium: The right atrium is mild to moderately dilated. There is a device visualized in the right atrium. Aortic Valve: The aortic valve is probably trileaflet. There is no evidence of aortic valve regurgitation. Mitral Valve: The mitral valve is normal in structure. There is trace mitral valve regurgitation. Tricuspid Valve: The tricuspid valve is structurally normal. There is trace tricuspid regurgitation. The right ventricular systolic pressure is unable to be estimated. Pulmonic Valve: The pulmonic valve is not well visualized. The pulmonic valve regurgitation was not well visualized. Pericardium: Trivial pericardial effusion. Aorta: The aortic root is normal. Pulmonary Artery: The pulmonary artery is not well visualized. Systemic Veins: The inferior vena cava appears mildly dilated, with IVC inspiratory collapse less than 50%. In comparison to the previous echocardiogram(s): There are no prior studies on this patient for comparison purposes. CONCLUSIONS: 1. The left ventricular systolic function is normal, with a visually estimated ejection fraction of 55-60%. 2. There is normal right ventricular global systolic function. 3. The left atrium is enlarged. 4. The right atrium is mild to moderately dilated. 5. The pulmonary artery is not well visualized. 6. The inferior vena cava appears mildly dilated, with IVC inspiratory collapse less than 50%. 7. 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 RECOMMENDATIONS: Utilizing an FDA cleared automated machine learning algorithm (EchoGo Heart Failure by [employer]), the analysis of the apical 4-chamber echocardiogram suggests the presence of heart failure with preserved ejection fraction (HFpEF)*. Clinical correlation looking for additional heart failure signs and symptoms is recommended, as a definite diagnosis of heart failure cannot be made by imaging alone. *Per ACC/AHA/HFSA universal diagnosis of heart failure, HFpEF is defined as 1) signs and symptoms leading to clinical diagnosis of heart failure, 2) an ejection fraction of at least 50%, and 3) evidence of elevated intra-cardiac filling pressures by echocardiography, BNP elevation, or catheterization. QUANTITATIVE DATA SUMMARY: LV SYSTOLIC FUNCTION BY 2D PLANIMETRY (MOD): Normal Ranges: EF-Visual: 58 % LV EF Reported: 58 % TRICUSPID VALVE/RVSP: Normal Ranges: Est. RA Pressure: 8 mmHg IVC Diam: 2.20 cm [id number] Colton Valle MD Electronically signed on 10/16/2024 at 3:47:28 PM Final Colton Saavedra M D - 10/16/2024 [facility], [address] [place] [address] and TRANSTHORACIC ECHOCARDIOGRAM REPORT Patient Name: RADHA THOMAS Reading Physician: [id number] Colton Valle MD Study Date: 10/15/2024 Ordering Provider: [id number] KRYSTINA BRONSON MRN/PID: [id number] Fellow: Nurse: Date of /Age: 8 1955 / 69 years Flask Handler: Gender assigned at F Additional Staff: : Height: Admit Date: 10/13/2024 Weight: Admission Status: Inpatient - Routine BSA / BMI: m2 / kg/m2 Study Type: TRANSTHORACIC ECHO (TTE) LIMITED Diagnosis/ICD: Longstanding persistent AFib-I48.11 CPT Code: Echo Limited-82658; Doppler Limited-10698; Color Doppler-83940 Study Detail: The following Echo studies were performed: 2D, Doppler and color flow. PHYSICIAN INTERPRETATION: Left Ventricle: The left ventricular systolic function is normal, with a visually estimated ejection fraction of 55-60%. There are no regional left ventricular wall motion abnormalities. The left ventricular cavity size is normal. Left ventricular diastolic filling was not assessed. Left Atrium: The left atrium is enlarged. Right Ventricle: The right ventricle is normal in size. There is normal right ventricular global systolic function. A device is visualized in the right ventricle. Right Atrium: The right atrium is mild to moderately dilated. There is a device visualized in the right atrium. Aortic Valve: The aortic valve is probably trileaflet. There is no evidence of aortic valve regurgitation. Mitral Valve: The mitral valve is normal in structure. There is trace mitral valve regurgitation. Tricuspid Valve: The tricuspid valve is structurally normal. There is trace tricuspid regurgitation. The right ventricular systolic pressure is unable to be estimated. Pulmonic Valve: The pulmonic valve is not well visualized. The pulmonic valve regurgitation was not well visualized. Pericardium: Trivial pericardial effusion. Aorta: The aortic root is normal. Pulmonary Artery: The pulmonary artery is not well visualized. Systemic Veins: The inferior vena cava appears mildly dilated, with IVC inspiratory collapse less than 50%. In comparison to the previous echocardiogram(s): There are no prior studies on this patient for comparison purposes. CONCLUSIONS: 1. The left ventricular systolic function is normal, with a visually estimated ejection fraction of 55-60%. 2. There is normal right ventricular global systolic function. 3. The left atrium is enlarged. 4. The right atrium is mild to moderately dilated. 5. The pulmonary artery is not well visualized. 6. The inferior vena cava appears mildly dilated, with IVC inspiratory collapse less than 50%. 7. 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 RECOMMENDATIONS: Utilizing an FDA cleared automated machine learning algorithm (EchoGo Heart Failure by [employer]), the analysis of the apical 4-chamber echocardiogram suggests the presence of heart failure with preserved ejection fraction (HFpEF)*. Clinical correlation looking for additional heart failure signs and symptoms is recommended, as a definite diagnosis of heart failure cannot be made by imaging alone. *Per ACC/AHA/HFSA universal diagnosis of heart failure, HFpEF is defined as 1) signs and symptoms leading to clinical diagnosis of heart failure, 2) an ejection fraction of at least 50%, and 3) evidence of elevated intra-cardiac filling pressures by echocardiography, BNP elevation, or catheterization. QUANTITATIVE DATA SUMMARY: LV SYSTOLIC FUNCTION BY 2D PLANIMETRY (MOD): Normal Ranges: EF-Visual: 58 % LV EF Reported: 58 % TRICUSPID VALVE/RVSP: Normal Ranges: Est. RA Pressure: 8 mmHg IVC Diam: 2.20 cm [id number] Colton Valle MD Electronically signed on 10/16/2024 at 3:47:28 PM Final [facility] Work Phone: XR CHEST 1 VIEWon 10-16-2024 XR CHEST 1 VIEW Interpreted By: Juan Mcdaniels, STUDY: XR CHEST 1 VIEW; 10/16/2024 8:04 am INDICATION: Signs/Symptoms:TVP positioning. COMPARISON: Chest radiograph dated 10/14/2024. ACCESSION NUMBER(S): [id number] ORDERING CLINICIAN: KRYSTINA BRONSON FINDINGS: AP radiograph of the chest. Similar positioning of transvenous pacer with tip overlying the right ventricle. CARDIOMEDIASTINAL SILHOUETTE: Cardiomediastinal silhouette is stable in size and configuration. LUNGS: Interval increase in pulmonary vascular congestion, prominent interstitial lung markings and faint diffuse alveolar infiltrates. Small left pleural effusion tracking along the lateral chest wall. ABDOMEN: No remarkable upper abdominal findings. BONES: No acute osseous changes. IMPRESSION: 1. Similar positioning of transvenous pacer with tip overlying the right ventricle. 2. Interval increase in interstitial/alveolar pulmonary edema/atelectasis, superimposed infection can not be excluded. 3. Small left pleural effusion. MACRO: None Signed by: Juan Mcdaniels 10/16/2024 9:09 AM Dictation workstation: [id number] [facility] XR Chest Single viewon 10-16 1. Similar positioning of transvenous pacer with tip overlying the right ventricle. 2. Interval increase in interstitial/alveolar pulmonary edema/atelectasis, superimposed infection can not be excluded. 3. Small left pleural effusion. MACRO: None Signed by: Juan Mcdaniels 10/16/2024 9:09 AM Dictation workstation: [id number] MMODAL Interpreted By: Juan Mcdaniels, STUDY: XR CHEST 1 VIEW; 10/16/2024 8:04 am INDICATION: Signs/Symptoms:TVP positioning. COMPARISON: Chest radiograph dated 10/14/2024. ACCESSION NUMBER(S): [id number] ORDERING CLINICIAN: KRYSTINA BRONSON FINDINGS: AP radiograph of the chest. Similar positioning of transvenous pacer with tip overlying the right ventricle. CARDIOMEDIASTINAL SILHOUETTE: Cardiomediastinal silhouette is stable in size and configuration. LUNGS: Interval increase in pulmonary vascular congestion, prominent interstitial lung markings and faint diffuse alveolar infiltrates. Small left pleural effusion tracking along the lateral chest wall. ABDOMEN: No remarkable upper abdominal findings. BONES: No acute osseous changes. MMODAL Juan Mcdaniels MD PhD - 10/16/2024 Interpreted By: Juan Mcdaniels, STUDY: XR CHEST 1 VIEW; 10/16/2024 8:04 am INDICATION: Signs/Symptoms:TVP positioning. COMPARISON: Chest radiograph dated 10/14/2024. ACCESSION NUMBER(S): [id number] ORDERING CLINICIAN: KRYSTINA BRONSON FINDINGS: AP radiograph of the chest. Similar positioning of transvenous pacer with tip overlying the right ventricle. CARDIOMEDIASTINAL SILHOUETTE: Cardiomediastinal silhouette is stable in size and configuration. LUNGS: Interval increase in pulmonary vascular congestion, prominent interstitial lung markings and faint diffuse alveolar infiltrates. Small left pleural effusion tracking along the lateral chest wall. ABDOMEN: No remarkable upper abdominal findings. BONES: No acute osseous changes. IMPRESSION: 1. Similar positioning of transvenous pacer with tip overlying the right ventricle. 2. Interval increase in interstitial/alveolar pulmonary edema/atelectasis, superimposed infection can not be excluded. 3. Small left pleural effusion. MACRO: None Signed by: Juan Mcdaniels 10/16/2024 9:09 AM Dictation workstation: [id number] [facility] Work Phone: Radiology Study observation (narrative) [facility] Work Phone: XR Chest Single viewOrdered By: Juan Mcdaniels on 10-16-2024 [facility] Work Phone: C-reactive proteinon 024 CRP [Mass/Vol] 1.45 mg/dL High NINF - 1.00 mg/dL [facility] CBC panel Auto (Bld)on 10-15 Erythrocyte distribution width (RBC) [Ratio] 12.9 % 11.5 - 14.5 % [facility] Hematocrit (Bld) [Volume fraction] 32.3 % Low 36.0 - 46.0 % [facility] Hemoglobin (Bld) [Mass/Vol] 11 g/dL Low 12.0 - 16.0 g/dL [facility] Interpretation and review of laboratory results Abnormal [facility] MCH (RBC) [Entitic mass] 29.8 pg 26.0 - 34.0 pg [facility] MCHC (RBC) [Mass/Vol] 34.1 g/dL 32.0 - 36.0 g/dL [facility] MCV (RBC) [Entitic vol] 88 fL 80 - 100 fL [facility] Nucleated RBC/100 WBC (Bld) [Ratio] 0 % [facility] Platelets (Bld) [#/Vol] 119 10*3/uL Low [facility] RBC (Bld) [#/Vol] 3.69 10*6/uL [facility] WBC (Bld) [#/Vol] 8.2 10*3/uL [facility] Erythrocyte distribution width (RBC) [Ratio] 12.9 % Normal 11.5-14.5 [facility] Comment on above: Performed By: #### 2 341-6 #### TEOFILO Flowers ([id number]) [facility] ([facility]) [address] [place] [address] Hematocrit (Bld) [Volume fraction] 32.3 % Low 36.0-46.0 [facility] Comment on above: Performed By: #### 2 341-6 #### TEOFILO Flowers ([id number]) [facility] ([facility]) [address] [place] [address] Hemoglobin (Bld) [Mass/Vol] 11.0 g/dL Low 12.0-16.0 [facility] Comment on above: Performed By: #### 2 341-6 #### TEOFILO Flowers ([id number]) [facility] ([facility]) [id number] [place] [address] MCH (RBC) [Entitic mass] 29.8 pg Normal 26.0-34.0 [facility] Comment on above: Performed By: #### 2 341-6 #### TEOFILO Flowers ([id number]) [facility] ([facility]) [address] [place] [address] 19074 MCHC (RBC) [Mass/Vol] 34.1 g/dL Normal 32.0-36.0 [facility] Comment on above: Performed By: #### 2 341-6 #### TEOFILO Flowers ([id number]) [facility] ([facility]) [address] [place] [address] 55764 MCV (RBC) [Entitic vol] 88 fL Normal 80-100 [facility] Comment on above: Performed By: #### 2 341-6 #### TEOFILO Flowers ([id number]) [facility] ([facility]) [address] [place] [address] 99646 Nucleated RBC/100 WBC (Bld) [Ratio] 0.0 /100 WBCs Normal 0.0-0.0 [facility] Comment on above: Performed By: #### 2 341-6 #### TEOFILO Flowers ([id number]) [facility] ([facility]) [address] [place] [address] Platelets (Bld) [#/Vol] 119 x10*3/uL Low 150-450 [facility] Comment on above: Performed By: #### 2 341-6 #### TEOFILO Flowers ([id number]) [facility] ([facility]) [address] [place] [address] RBC (Bld) [#/Vol] 3.69 x10*6/uL Low 4.00-5.20 [facility] Comment on above: Performed By: #### 2 341-6 #### TEOFILO Flowers ([id number]) [facility] ([facility]) [address] [place] [address] WBC (Bld) [#/Vol] 8.2 x10*3/uL Normal 4.4-11.3 [facility] Comment on above: Performed By: #### 2 341-6 #### TEOFILO Flowers ([id number]) [facility] ([facility]) [id number] [place] [address] 23588 CRP [Mass/Vol]on 10-15-2024 Interpretation and review of laboratory results Abnormal [facility] ECG 12-LEADon 10-15-2024 ECG 12-LEAD Ventricular Rate 115 Atrial Rate 120 QRS Duration 88 Q-T Interval 318 QTC Calculation(Bazett) 439 R [place] 45 T [place] -78 QRS Count 19 Q Onset 226 T Offset 385 QTC Fredericia 394 Diagnosis Atrial fibrillation with rapid ventricular response Low voltage QRS Nonspecific T wave abnormality Abnormal ECG When compared with ECG of 14-OCT-2024 23:17, Atrial fibrillation has replaced Sinus rhythm Confirmed by Lashonda Beltrán ([id number]) on 10/29/2024 8:09:14 PM Normal [facility] Magnesiumon 10-15-2024 Magnesium [Mass/Vol] 1.68 mg/dL 1.60 - 2.40 mg/dL [facility] Magnesium [Mass/Vol] 1.68 mg/dL Normal 1.60-2.40 [facility] Comment on above: Performed By: #### 2 341-6 #### TEOFILO Flowers ([id number]) [facility] ([facility]) [address] [place] [address] Magnesium [Mass/Vol]on 12-08 -2024 Interpretation and review of laboratory results Normal [facility] No Panel Informationon 10-15 [facility] Renal function 2000 panelon 10-15-2024 Albumin BCP dye [Mass/Vol] 3.7 g/dL 3.4 - 5.0 g/dL [facility] Anion gap [Moles/Vol] 13 mmol/L 10 - 2 0 mmol/L [facility] Calcium [Mass/Vol] 8.5 mg/dL Low 8.6 - 10. 6 mg/dL [facility] Chloride [Moles/Vol] 106 mmol/L 98 - 10 7 mmol/L [facility] CO2 [Moles/Vol] 22 mmol/L 21 - 32 mmol/L [facility] Creatinine [Mass/Vol] 0.7 mg/dL 0.50 - 1.05 mg/dL [facility] eGFR - PINF [facility] Comment on above: Calculations of denia mated GFR are performed using the 2020 CKD-EPI Study Refit equation without the race variable for the IDMS-Traceable creatinine methods. https://jasn.asnjournals.org/content/early//ASN.2020 053290 Glucose [Mass/Vol] 129 mg/dL High 74 - 99 mg/dL [facility] Interpretation and review of laboratory results Abnormal [facility] Phosphate [Mass/Vol] 1.9 mg/dL Low 2.5 - 4 .9 mg/dL [facility] Comment on above: MILD HEMOLYSIS DETEC ROLANDA. The result may be falsely elevated due to hemolysis or other interferents. Clinical correlation is recommended. Repeat testing may be considered. The performance characteristics of phosphorus testing in heparinized plasma have been validated by the individual laboratory site where testing is performed. Testing on heparinized plasma is not approved by the FDA; however, such approval is not necessary. Potassium [Moles/Vol] 4 mmol/L 3.5 - 5.3 mmol/L [facility] Comment on above: MILD HEMOLYSIS DETEC ROLANDA. The result may be falsely elevated due to hemolysis or other interferents. Clinical correlation is recommended. Repeat testing may be considered. Sodium [Moles/Vol] 137 mmol/L 136 - 145 mmol/L [facility] Urea nitrogen [Mass/Vol] 16 mg/dL 6 - 23 mg/dL [facility] Albumin BCP dye [Mass/Vol] 3.7 g/dL Normal 3.4-5.0 [facility] Comment on above: Performed By: #### 2 341-6 #### TEOFILO Flowers ([id number]) [facility] ([facility]) [address] [place] [address] Anion gap [Moles/Vol] 13 mmol/L Normal 10-20 [facility] Comment on above: Performed By: #### 2 341-6 #### TEOFILO Flowers ([id number]) [facility] ([facility]) [id number] [place] [address] Calcium [Mass/Vol] 8.5 mg/dL Low 8.6-10.6 [facility] Comment on above: Performed By: #### 2 341-6 #### TEOFILO Flowers ([id number]) [facility] ([facility]) [id number] [place] [address]853 Chloride [Moles/Vol] 106 mmol/L Normal 98-107 [facility] Comment on above: Performed By: #### 2 341-6 #### TEOFILO Flowers ([id number]) [facility] ([facility]) [address] [place] [address]994 CO2 [Moles/Vol] 22 mmol/L Normal 21-32 [facility] Comment on above: Performed By: #### 2 341-6 #### TEOFILO Flowers ([id number]) [facility] ([facility]) [id number] [place] [address]3973 Creatinine [Mass/Vol] 0.70 mg/dL Normal 0.50-1.05 [facility] Comment on above: Performed By: #### 2 341-6 #### TEOFILO Flowers ([id number]) [facility] ([facility]) [id number] [place] [address] 608[address] GFR/1.73 sq M.predicted MDRD (S/P/Bld) [Vol rate/Area] mL/min/{1.73_m2} Normal >60 [facility] Comment on above: Result Comment: Calc ulations of estimated GFR are performed using the 2020 CKD-EPI Study Refit equation without the race variable for the IDMS-Traceable creatinine methods. https://jasn.asnjournals.org/content/early/ASN.2020 763106 Performed By: #### 2 341-6 #### TEOFILO Flowers ([id number]) [facility] ([facility]) [address] [place] [address] Glucose [Mass/Vol] 129 mg/dL High 74-99 [facility] Comment on above: Performed By: #### 2 341-6 #### TEOFILO Flowers ([id number]) [facility] ([facility]) [address] [place] [address] Phosphate [Mass/Vol] 1.9 mg/dL Low 2.5-4.9 [facility] Comment on above: Result Comment: MILD HEMOLYSIS DETECTED. The result may be falsely elevated due to hemolysis or other interferents. Clinical correlation is recommended. Repeat testing may be considered. The performance characteristics of phosphorus testing in heparinized plasma have been validated by the individual laboratory site where testing is performed. Testing on heparinized plasma is not approved by the FDA; however, such approval is not necessary. Performed By: #### 2 341-6 #### TEOFILO Flowers ([id number]) [facility] ([facility]) [address] [place] [address] Potassium [Moles/Vol] 4.0 mmol/L Normal 3.5-5.3 [facility] Comment on above: Result Comment: MILD HEMOLYSIS DETECTED. The result may be falsely elevated due to hemolysis or other interferents. Clinical correlation is recommended. Repeat testing may be considered. Performed By: #### 2 341-6 #### TEOFILO Flowers ([id number]) [facility] ([facility]) [address] [place] [address] Sodium [Moles/Vol] 137 mmol/L Normal 136-145 [facility] Comment on above: Performed By: #### 2 341-6 #### TEOFILO Flowers ([id number]) [facility] ([facility]) [address] [place] [address]85 Urea nitrogen [Mass/Vol] 16 mg/dL Normal 6-23 [facility] Comment on above: Performed By: #### 2 341-6 #### TEOFILO Flowers ([id number]) [facility] ([facility]) [address] [place] [address] TRANST[facility]ACIC [facility]TTE) [facility] TRANSTHORACIC ECHO (TTE) [facility], [address] [place], [place] [id number] and TRANSTHORACIC ECHOCARDIOGRAM REPORT Patient Name: RADHA THOMAS Reading Physician: [id number] Colton Valle MD Study Date: 10/15/2024 Ordering Provider: [id number] KRYSTINA BRONSON MRN/PID: [id number] Fellow: Nurse: Date of /Age: 8 1955 / 69 years Flask Handler: Gender assigned at F Additional Staff: : Height: Admit Date: 10/13/2024 Weight: Admission Status: Inpatient - Routine BSA / BMI: m2 / kg/m2 Study Type: TRANSTHORACIC ECHO (TTE) LIMITED Diagnosis/ICD: Longstanding persistent [id number] CPT Code: Echo Limited-33806; Doppler Limited-57139; Color Doppler-04245 Study Detail: The following Echo studies were performed: 2D, Doppler and color flow. PHYSICIAN INTERPRETATION: Left Ventricle: The left ventricular systolic function is normal, with a visually estimated ejection fraction of 55-60%. There are no regional left ventricular wall motion abnormalities. The left ventricular cavity size is normal. Left ventricular diastolic filling was not assessed. Left Atrium: The left atrium is enlarged. Right Ventricle: The right ventricle is normal in size. There is normal right ventricular global systolic function. A device is visualized in the right ventricle. Right Atrium: The right atrium is mild to moderately dilated. There is a device visualized in the right atrium. Aortic Valve: The aortic valve is probably trileaflet. There is no evidence of aortic valve regurgitation. Mitral Valve: The mitral valve is normal in structure. There is trace mitral valve regurgitation. Tricuspid Valve: The tricuspid valve is structurally normal. There is trace tricuspid regurgitation. The right ventricular systolic pressure is unable to be estimated. Pulmonic Valve: The pulmonic valve is not well visualized. The pulmonic valve regurgitation was not well visualized. Pericardium: Trivial pericardial effusion. Aorta: The aortic root is normal. Pulmonary Artery: The pulmonary artery is not well visualized. Systemic Veins: The inferior vena cava appears mildly dilated, with IVC inspiratory collapse less than 50%. In comparison to the previous echocardiogram(s): There are no prior studies on this patient for comparison purposes. CONCLUSIONS: 1. The left ventricular systolic function is normal, with a visually estimated ejection fraction of 55-60%. 2. There is normal right ventricular global systolic function. 3. The left atrium is enlarged. 4. The right atrium is mild to moderately dilated. 5. The pulmonary artery is not well visualized. 6. The inferior vena cava appears mildly dilated, with IVC inspiratory collapse less than 50%. 7. 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 RECOMMENDATIONS: Utilizing an FDA cleared automated machine learning algorithm (EchoGo Heart Failure by [employer]), the analysis of the apical 4-chamber echocardiogram suggests the presence of heart failure with preserved ejection fraction (HFpEF)*. Clinical correlation looking for additional heart failure signs and symptoms is recommended, as a definite diagnosis of heart failure cannot be made by imaging alone. *Per ACC/AHA/HFSA universal diagnosis of heart failure, HFpEF is defined as 1) signs and symptoms leading to clinical diagnosis of heart failure, 2) an ejection fraction of at least 50%, and 3) evidence of elevated intra-cardiac filling pressures by echocardiography, BNP elevation, or catheterization. QUANTITATIVE DATA SUMMARY: LV SYSTOLIC FUNCTION BY 2D PLANIMETRY (MOD): Normal Ranges: EF-Visual: 58 % LV EF Reported: 58 % TRICUSPID VALVE/RVSP: Normal Ranges: Est. RA Pressure: 8 mmHg IVC Diam: 2.20 cm [id number] Colton Valle MD Electronically signed on 10/16/2024 at 3:47:28 PM Final Normal [facility] Tropinin I.cardiac panel Hig h sensitivity methodon 10-15-2024 Interpretation and review of laboratory results Abnormal [facility] Less than 99th percentile of normal range cutoff- Female and children under 18 years old <35 ng/L; Male <54 ng/L: Negative Repeat testing should be performed if clinically indicated. Female and children under 18 years old 35-120 ng/L; Male 54-120 ng/L: Consistent with possible cardiac damage and possible increased clinical risk. Serial measurements may help to assess extent of myocardial damage. >120 ng/L: Consistent with cardiac damage, increased clinical risk and myocardial infarction. Serial measurements may help assess extent of myocardial damage. NOTE: Children less than 1 year old may have higher baseline troponin levels and results should be interpreted in conjunction with the overall clinical context. NOTE: Troponin I testing is performed using a different testing methodology at [facility] than at other [facility]. Direct result comparisons should only be made within the same method. [facility] Interpretation and review of laboratory results Abnormal [facility] Less than 99th percentile of normal range cutoff- Female and children under 18 years old <35 ng/L; Male <54 ng/L: Negative Repeat testing should be performed if clinically indicated. Female and children under 18 years old 35-120 ng/L; Male 54-120 ng/L: Consistent with possible cardiac damage and possible increased clinical risk. Serial measurements may help to assess extent of myocardial damage. >120 ng/L: Consistent with cardiac damage, increased clinical risk and myocardial infarction. Serial measurements may help assess extent of myocardial damage. NOTE: Children less than 1 year old may have higher baseline troponin levels and results should be interpreted in conjunction with the overall clinical context. NOTE: Troponin I testing is performed using a different testing methodology at [facility] than at other [facility]. Direct result comparisons should only be made within the same method. [facility] Troponin I, High Sensitivity on 10-15-2024 Tropinin I.cardiac panel High sensitivity method 531 ng/L Critically high 0 - 34 ng/L [facility] Comment on above: Previous result veri fied on 10/15/2024 0304 on specimen/case [id number] called with component [facility] for procedure Troponin I, High Sensitivity with value 676 ng/L. Tropinin I.cardiac panel High sensitivity method 676 ng/L Critically high 0 - 34 ng/L [facility] Troponin I.cardiac panelon 1 12-16-2023 Tropinin I.cardiac panel High sensitivity method 531 ng/L Critically high 0-34 [facility] Comment on above: Order Comment: Less than 99th percentile of normal range cutoff-Female and children under 18 years old <35 ng/L; Male <54 ng/L: NegativeRepeat testing should be performed if clinically indicated.Female and children under 18 years old 35-120 ng/L; Male 54-120 ng/L:Consistent with possible cardiac damage and possible increased clinicalrisk. Serial measurements may help to assess extent of myocardial damage.>120 ng/L: Consistent with cardiac damage, increased clinical risk andmyocardial infarction. Serial measurements may help assess extent ofmyocardial damage.NOTE: Children less than 1 year old may have higher baseline troponinlevels and results should be interpreted in conjunction with the overallclinical context.NOTE: Troponin I testing is performed using a differenttesting methodology at [facility] Direct result comparisons should onlybe made within the same method. Result Comment: Prev ious result verified on 10/15/2024 0304 on specimen/case [id number] called with component [facility] for procedure Troponin I, High Sensitivity with value 676 ng/L. Performed By: #### 2 341-6 #### TEOFILO Flowers ([id number]) [facility] ([facility]) [address] [place] [address] 30336 C reactive proteinon 024 CRP [Mass/Vol] 1.45 mg/dL High <1.00 [facility] Comment on above: Performed By: #### 2 341-6 #### TEOFILO Flowers ([id number]) [facility] ([facility]) [address] [place] [address] CBC panel Auto (Bld)on 10-14 Erythrocyte distribution width (RBC) [Ratio] 12.9 % Normal 11.5-14.5 [facility] Comment on above: Performed By: #### 2 341-6 #### TEOFILO Flowers ([id number]) [facility] ([facility]) [id number] [place] [address] 15372 Hematocrit (Bld) [Volume fraction] 32.8 % Low 36.0-46.0 [facility] Comment on above: Performed By: #### 2 341-6 #### TEOFILO Flowers ([id number]) [facility] ([facility]) [address] [place] [address] 88155 Hemoglobin (Bld) [Mass/Vol] 10.8 g/dL Low 12.0-16.0 [facility] Comment on above: Performed By: #### 2 341-6 #### TEOFILO Flowers ([id number]) [facility] ([facility]) [address] [place] [address] 53064 Interpretation and review of laboratory results Abnormal [facility] MCH (RBC) [Entitic mass] 29.9 pg Normal 26.0-34.0 [facility] Comment on above: Performed By: #### 2 341-6 #### TEOFILO Flowers ([id number]) [facility] ([facility]) [address] [place] [address] 79622 MCHC (RBC) [Mass/Vol] 32.9 g/dL Normal 32.0-36.0 [facility] Comment on above: Performed By: #### 2 341-6 #### TEOFILO Flowers ([id number]) [facility] ([facility]) [address] [place] [address] 01249 MCV (RBC) [Entitic vol] 91 fL Normal 80-100 U [facility] Comment on above: Performed By: #### 2 341-6 #### TEOFILO Flowers ([id number]) [facility] ([facility]) [address] [place] [address] 41390 Nucleated RBC/100 WBC (Bld) [Ratio] 0 % [facility] Platelets (Bld) [#/Vol] 115 10*3/uL [facility] RBC (Bld) [#/Vol] 3.61 10*6/uL [facility] WBC (Bld) [#/Vol] 7.3 10*3/uL [facility] Nucleated RBC/100 WBC (Bld) [Ratio] 0.0 /100 WBCs Normal 0.0-0.0 [facility] Comment on above: Performed By: #### 2 341-6 #### TEOFILO Flowers ([id number]) [facility] ([facility]) [address] [place] [address] Platelets (Bld) [#/Vol] 115 x10*3/uL Low 150-450 [facility] Comment on above: Performed By: #### 2 341-6 #### TEOFILO Flowers ([id number]) [facility] ([facility]) [address] [place] [address] RBC (Bld) [#/Vol] 3.61 x10*6/uL Low 4.00-5.20 [facility] Comment on above: Performed By: #### 2 341-6 #### TEOFILO Flowers ([id number]) [facility] ([facility]) [address] [place] [address] WBC (Bld) [#/Vol] 7.3 x10*3/uL Normal 4.4-11.3 [facility] Comment on above: Performed By: #### 2 341-6 #### TEOFILO Flowers ([id number]) [facility] ([facility]) [address] [place] [address] ECG 12-LEADon 10-14-2024 ECG 12-LEAD Ventricular Rate 79 Atrial Rate 79 P-R Interval 234 QRS Duration 90 Q-T Interval 354 QTC Calculation(Bazett) 405 P [place] 77 R [place] 28 T [place] 177 QRS Count 13 Q Onset 224 P Onset 107 P Offset 167 T Offset 401 QTC Fred[place] 388 Diagnosis Sinus rhythm with 1st degree AV block T wave abnormality, consider lateral ischemia Abnormal ECG When compared with ECG of 14-OCT-2024 08:41, Inverted T waves have replaced nonspecific T wave abnormality in Lateral leads Confirmed by Lashonda Beltrán ([id number]) on 10/29/2024 8:05:03 PM Normal [facility] ECG 12-LEAD Ventricular Rate 64 Atrial Rate 64 P-R Interval 224 QRS Duration 96 Q-T Interval 430 QTC Calculation(Bazett) 443 P [place] 70 R [place] 36 T [place] 190 QRS Count 11 Q Onset 222 P Onset 110 P Offset 169 T Offset 437 QTC [place] 439 Diagnosis Sinus rhythm with 1st degree AV block T wave abnormality, consider anterior ischemia Abnormal ECG When compared with ECG of 14-OCT-2024 08:25, [place] interval has increased Questionable change in QRS duration Criteria for Anterior infarct are no longer Present Criteria for Inferior infarct are no longer Present Confirmed by Lashonda Beltrán ([id number]) on 10/29/2024 8:03:08 PM Normal [facility] ECG 12-LEAD Ventricular Rate 60 Atrial Rate 54 QRS Duration 168 Q-T Interval 554 QTC Calculation(Bazett) 554 R [place] -41 T [place] 110 QRS Count 10 Q Onset 182 T Offset 459 QTC Fredericia 554 Diagnosis Ventricular-paced rhythm Abnormal ECG When compared with ECG of 13-OCT-2024 18:23, No significant change was found Confirmed by Too Beltráno ([id number]) on 10/29/2024 8:02:48 PM Normal [facility] Laboratory - Chemistry and C hemistry - challengeon 10-14-2024 Magnesium [Mass/Vol] 1.77 mg/dL Normal 1.60-2.40 [facility] Comment on above: Performed By: #### 1 9123-9 #### TEOFILO Flowers ([id number]) [facility] ([facility]) [address] [place] [address] 02391 Magnesium [Mass/Vol]on 10-14 Interpretation and review of laboratory results Normal [facility] No Panel Informationon 10-14 [facility] Renal function 2000 panelon 10-14-2024 Albumin BCP dye [Mass/Vol] 3.7 g/dL Normal 3.4-5.0 [facility] Comment on above: Performed By: #### 2 4362-6 #### TEOFILO Flowers ([id number]) [facility] ([facility]) [address] [place] [address] 57708 Anion gap [Moles/Vol] 11 mmol/L Normal 10-20 [facility] Comment on above: Performed By: #### 2 4362-6 #### TEOFILO Flowers ([id number]) [facility] ([facility]) [address] [place] [address] Calcium [Mass/Vol] 8.6 mg/dL Normal 8.6-10.6 [facility] Comment on above: Performed By: #### 2 4362-6 #### TEOFILO Flowers ([id number]) [facility] ([facility]) [address] [place] [address] Chloride [Moles/Vol] 104 mmol/L Normal 98-107 [facility] Comment on above: Performed By: #### 2 4362-6 #### TEOFILO GUTHRIE L ([id number]) [facility] ([facility]) [address] [place] [address] CO2 [Moles/Vol] 23 mmol/L Normal 21-32 [facility] Comment on above: Performed By: #### 2 4362-6 #### TEOFILO Flowers ([id number]) [facility] ([facility]) [address] [place] [address] 57722 Creatinine [Mass/Vol] 0.8 mg/dL 0.50 - 1.05 mg/dL [facility] GFR/1.73 sq M.predicted among non-blacks MDRD (S/P/Bld) [Vol rate/Area] 80 mL/min/{1.73_m2} - PINF [facility] Comment on above: Calculations of denia mated GFR are performed using the 2020 CKD-EPI Study Refit equation without the race variable for the IDMS-Traceable creatinine methods. https://jasn.asnjournals.org/content/early//ASN.2020 688700 Glucose [Mass/Vol] 130 mg/dL High 74-99 [facility] Comment on above: Performed By: #### 2 4362-6 #### TEOFILO Flowers ([id number]) [facility] ([facility]) [address] [place] [address] 53534 Interpretation and review of laboratory results Abnormal [facility] Phosphate [Mass/Vol] 3.9 mg/dL Normal 2.5-4.9 [facility] Comment on above: The performance marc acteristics of phosphorus testing in heparinized plasma have been validated by the individual laboratory site where testing is performed. Testing on heparinized plasma is not approved by the FDA; however, such approval is not necessary. Result Comment: The performance characteristics of phosphorus testing in heparinized plasma have been validated by the individual laboratory site where testing is performed. Testing on heparinized plasma is not approved by the FDA; however, such approval is not necessary. Performed By: #### 2 4362-6 #### TEOFILO Floewrs ([id number]) [facility] ([facility]) [address] [place] [address] 95879 Potassium [Moles/Vol] 4.2 mmol/L Normal 3.5-5.3 [facility] Comment on above: Performed By: #### 2 4362-6 #### TEOFILO Flowers ([id number]) [facility] ([facility]) [address] [place] [address] 11148 Sodium [Moles/Vol] 134 mmol/L Low 136-145 [facility] Comment on above: Performed By: #### 2 4362-6 #### TEOFILO Flowers ([id number]) [facility] ([facility]) [address] [place] [address] 11684 Urea nitrogen [Mass/Vol] 15 mg/dL Normal 6-23 [facility] Comment on above: Performed By: #### 2 4362-6 #### TEOFILO Flowers ([id number]) [facility] ([facility]) [address] [place] [address] 18553 Creatinine [Mass/Vol] 0.80 mg/dL Normal 0.50-1.05 [facility] Comment on above: Performed By: #### 2 4362-6 #### TEOFILO GUTHRIE L ([id number]) [facility] ([facility]) [address] [place] [address] 32114 Glomerular filtration rate/1.73 sq M.predicted 80 mL/min/1.73m*2 Normal >60 [facility] Comment on above: Result Comment: Calc ulations of estimated GFR are performed using the 2020 CKD-EPI Study Refit equation without the race variable for the IDMS-Traceable creatinine methods. https://jasn.asnjournals.org/content/ASN 510594 Performed By: #### 2 4362-6 #### TEOFILO Flowers ([id number]) [facility] ([facility]) [address] [place] [address] 38384 Troponin I.cardiac panelon 1 12-15-2023 Tropinin I.cardiac panel High sensitivity method 676 ng/L Critically high 0-34 [facility] Comment on above: Order Comment: Less than 99th percentile of normal range cutoff-Female and children under 18 years old <35 ng/L; Male <54 ng/L: NegativeRepeat testing should be performed if clinically indicated.Female and children under 18 years old 35-120 ng/L; Male 54-120 ng/L:Consistent with possible cardiac damage and possible increased clinicalrisk. Serial measurements may help to assess extent of myocardial damage.>120 ng/L: Consistent with cardiac damage, increased clinical risk andmyocardial infarction. Serial measurements may help assess extent ofmyocardial damage.NOTE: Children less than 1 year old may have higher baseline troponinlevels and results should be interpreted in conjunction with the overallclinical context.NOTE: Troponin I testing is performed using a differenttesting methodology at [facility]. Direct result comparisons should onlybe made within the same method. Performed By: #### 2 341-6 #### TEOFILO Flowers ([id number]) [facility] ([facility]) [address] [place] [address] 83468 XR CHEST 1 VIEWon 10-14-2024 XR CHEST 1 VIEW Interpreted By: Aaron Pro and Ogievich Taessa STUDY: XR CHEST 1 VIEW; 10/14/2024 8:18 am INDICATION: Signs/Symptoms:TVP. COMPARISON: None. ACCESSION NUMBER(S): [id number] ORDERING CLINICIAN: REINA MONET FINDINGS: AP radiograph of the chest was provided. LINES/TUBES/DEVICES: Temporary transvenous pacer with tip overlying the right ventricle. CARDIOMEDIASTINAL SILHOUETTE: Cardiomediastinal silhouette is normal in size and configuration. LUNGS: No focal consolidation, pleural effusion, or pneumothorax. ABDOMEN: No remarkable upper abdominal findings. BONES: No acute osseous changes. IMPRESSION: 1. Temporary transvenous pacer with tip overlying the right ventricle. 2. No evidence of acute cardiopulmonary process. I personally reviewed the images/study and I agree with the findings as stated by Trevor Horton DO, PGY-3. This study was interpreted at [place], [place]. MACRO: None Signed by: Aaron Ramirez 10/14/2024 1:31 PM Dictation workstation: [id number] Normal [facility] XR Chest Single viewon 10-14 1. Temporary transvenous pacer with tip overlying the right ventricle. 2. No evidence of acute cardiopulmonary process. I personally reviewed the images/study and I agree with the findings as stated by Trevor Horton DO, PGY-3. This study was interpreted at [place], [place]. MACRO: None Signed by: Aaron Ramirez 10/14/2024 1:31 PM Dictation workstation: [id number] Interpreted By: Aaron Pro and Ogievich Taessa STUDY: XR CHEST 1 VIEW; 10/14/2024 8:18 am INDICATION: Signs/Symptoms:TVP. COMPARISON: None. ACCESSION NUMBER(S): [id number] ORDERING CLINICIAN: REINA MONET FINDINGS: AP radiograph of the chest was provided. LINES/TUBES/DEVICES: Temporary transvenous pacer with tip overlying the right ventricle. CARDIOMEDIASTINAL SILHOUETTE: Cardiomediastinal silhouette is normal in size and configuration. LUNGS: No focal consolidation, pleural effusion, or pneumothorax. ABDOMEN: No remarkable upper abdominal findings. BONES: No acute osseous changes. [facility] MMODAL Aaron Pro MD - 10/14/2024 Interpreted By: Aaron Pro and Ogievich Taessa STUDY: XR CHEST 1 VIEW; 10/14/2024 8:18 am INDICATION: Signs/Symptoms:TVP. COMPARISON: None. ACCESSION NUMBER(S): [id number] ORDERING CLINICIAN: REINA MONET FINDINGS: AP radiograph of the chest was provided. LINES/TUBES/DEVICES: Temporary transvenous pacer with tip overlying the right ventricle. CARDIOMEDIASTINAL SILHOUETTE: Cardiomediastinal silhouette is normal in size and configuration. LUNGS: No focal consolidation, pleural effusion, or pneumothorax. ABDOMEN: No remarkable upper abdominal findings. BONES: No acute osseous changes. IMPRESSION: 1. Temporary transvenous pacer with tip overlying the right ventricle. 2. No evidence of acute cardiopulmonary process. I personally reviewed the images/study and I agree with the findings as stated by Trevor Horton DO, PGY-3. This study was interpreted at [place], [place]. MACRO: None Signed by: Aaron Ramirez 10/14/2024 1:31 PM Dictation workstation: [id number] [facility] Work Phone: Radiology Study observation (narrative) [facility] Work Phone: XR Chest Single viewOrdered By: Aaron Ramirez on 10-14-2024 [facility] Work Phone: Basic metabolic 2000 panelon 10-13-2024 Anion gap [Moles/Vol] 13 mmol/L 10 - 2 0 mmol/L [facility] Calcium [Mass/Vol] 8.7 mg/dL 8.6 - 10. 6 mg/dL [facility] Chloride [Moles/Vol] 109 mmol/L High 98 - 10 7 mmol/L [facility] CO2 [Moles/Vol] 21 mmol/L 21 - 32 mmol/L [facility] Creatinine [Mass/Vol] 0.71 mg/dL 0.50 - 1.05 mg/dL [facility] eGFR - PINF [facility] Comment on above: Calculations of denia mated GFR are performed using the 2020 CKD-EPI Study Refit equation without the race variable for the IDMS-Traceable creatinine methods. https://jasn.asnjournals.org/content//ASN.2020 531646 Glucose [Mass/Vol] 135 mg/dL High 74 - 99 mg/dL [facility] Interpretation and review of laboratory results Abnormal [facility] Potassium [Moles/Vol] 4.1 mmol/L 3.5 - 5.3 mmol/L [facility] Sodium [Moles/Vol] 139 mmol/L 136 - 145 mmol/L [facility] Urea nitrogen [Mass/Vol] 15 mg/dL 6 - 23 mg/dL [facility] Anion gap [Moles/Vol] 13 mmol/L Normal 10-20 [facility] Comment on above: Performed By: #### 2 4321-2 #### TEOFILO Flowers ([id number]) [facility] ([facility]) [address] [place] [address] 58426 Calcium [Mass/Vol] 8.7 mg/dL Normal 8.6-10.6 [facility] Comment on above: Performed By: #### 2 4321-2 #### TEOFILO GUTHRIE L ([id number]) [facility] ([facility]) [id number] [place] [address] 12540 Chloride [Moles/Vol] 109 mmol/L High 98-107 [facility] Comment on above: Performed By: #### 2 4321-2 #### TEOFILO GUTHRIE L ([id number]) [facility] ([facility]) [address] [place] [address] 45632 CO2 [Moles/Vol] 21 mmol/L Normal 21-32 [facility] Comment on above: Performed By: #### 2 4321-2 #### TEOFILO GUTHRIE L ([id number]) [facility] ([facility]) [address] [place] [address] 15947 Creatinine [Mass/Vol] 0.71 mg/dL Normal 0.50-1.05 [facility] Comment on above: Performed By: #### 2 4321-2 #### TEOFILO GUTHRIE L ([id number]) [facility] ([facility]) [address] [place] [address] 87232 GFR/1.73 sq M.predicted MDRD (S/P/Bld) [Vol rate/Area] mL/min/{1.73_m2} Normal >60 [facility] Comment on above: Result Comment: Calc ulations of estimated GFR are performed using the 2020 CKD-EPI Study Refit equation without the race variable for the IDMS-Traceable creatinine methods. https://jasn.asnjournals.org/content/early/ASN.2020 943205 Performed By: #### 2 4321-2 #### TEOFILO GUTHRIE L ([id number]) [facility] ([facility]) [address] [place] [address] 40883 Glucose [Mass/Vol] 135 mg/dL High 74-99 [facility] Comment on above: Performed By: #### 2 4321-2 #### TEOFILO GUTHRIE L ([id number]) [facility] ([facility]) [address] [place] [address] 29182 Potassium [Moles/Vol] 4.1 mmol/L Normal 3.5-5.3 [facility] Comment on above: Performed By: #### 2 4321-2 #### TEOFILO GUTHRIE L ([id number]) [facility] ([facility]) [address] [place] [address] 79426 Sodium [Moles/Vol] 139 mmol/L Normal 136-145 [facility] Comment on above: Performed By: #### 2 4321-2 #### TEOFILO VILLALOBOSMOTZER L ([id number]) [facility] ([facility]) [address] [place] [address] 18442 Urea nitrogen [Mass/Vol] 15 mg/dL Normal 6-23 [facility] Comment on above: Performed By: #### 2 4321-2 #### TEOFILO VILLALOBOSMOTZER L ([id number]) [facility] ([facility]) [address] [place] [address] 95634 CBC W Auto Differential pane l (Bld)on 10-13-2024 Basophils (Bld) [#/Vol] 0.07 10*3/uL [facility] Basophils/100 WBC (Bld) 0.6 % 0.0 - 2.0 % [facility] Eosinophils (Bld) [#/Vol] 0.16 10*3/uL [facility] Eosinophils/100 WBC (Bld) 1.5 % 0.0 - 6.0 % [facility] Erythrocyte distribution width (RBC) [Ratio] 12.8 % 11.5 - 14.5 % [facility] Hematocrit (Bld) [Volume fraction] 35.7 % Low 36.0 - 46.0 % [facility] Hemoglobin (Bld) [Mass/Vol] 11.9 g/dL Low 12.0 - 16.0 g/dL [facility] Immature granulocytes (Bld) [#/Vol] 0.15 10*3/uL [facility] Immature granulocytes/100 WBC (Bld) 1.4 % High 0.0 - 0.9 % [facility] Comment on above: Immature Granulocyte Count (IG) includes promyelocytes, myelocytes and metamyelocytes but does not include bands. Percent differential counts (%) should be interpreted in the context of the absolute cell counts (cells/UL). Interpretation and review of laboratory results Abnormal [facility] Lymphocytes (Bld) [#/Vol] 1.43 10*3/uL [facility] Lymphocytes/100 WBC (Bld) 13.2 % 13.0 - 44.0 % [facility] MCH (RBC) [Entitic mass] 30 pg 26.0 - 34.0 pg [facility] MCHC (RBC) [Mass/Vol] 33.3 g/dL 32.0 - 36.0 g/dL [facility] MCV (RBC) [Entitic vol] 90 fL 80 - 100 fL [facility] Monocytes (Bld) [#/Vol] 0.61 10*3/uL [facility] Monocytes/100 WBC (Bld) 5.6 % 2.0 - 10.0 % [facility] Neutrophils (Bld) [#/Vol] 8.45 10*3/uL High [facility] Comment on above: Percent differential counts (%) should be interpreted in the context of the absolute cell counts (cells/uL). Neutrophils/100 WBC (Bld) 77.7 % 40.0 - 80.0 % [facility] Nucleated RBC/100 WBC (Bld) [Ratio] 0 % [facility] Platelets (Bld) [#/Vol] 146 10*3/uL Low [facility] RBC (Bld) [#/Vol] 3.97 10*6/uL Low [facility] WBC (Bld) [#/Vol] 10.9 10*3/uL [facility] Basophils (Bld) [#/Vol] 0.07 x10*3/uL Normal 0.00-0.10 [facility] Comment on above: Performed By: #### 5 7021-8 #### TEOFILO Flowers ([id number]) [facility] ([facility]) [address] [place] [address] 39957 Basophils/100 WBC (Bld) 0.6 % Normal 0.0-2.0 [facility] Comment on above: Performed By: #### 5 7021-8 #### TEOFILO Flowers ([id number]) [facility] ([facility]) [address] [place] [address] 65196 Eosinophils (Bld) [#/Vol] 0.16 x10*3/uL Normal 0.00-0.70 [facility] Comment on above: Performed By: #### 5 7021-8 #### TEOFILO Flowers ([id number]) [facility] ([facility]) [address] [place] [address] 84109 Eosinophils/100 WBC (Bld) 1.5 % Normal 0.0-6.0 [facility] Comment on above: Performed By: #### 5 7021-8 #### TEOFILO Flowers ([id number]) [facility] ([facility]) [address] [place] [address] 91913 Erythrocyte distribution width (RBC) [Ratio] 12.8 % Normal 11.5-14.5 [facility] Comment on above: Performed By: #### 5 7021-8 #### TEOFILO Flowers ([id number]) [facility] ([facility]) [id number] [place] [address] 88119 Hematocrit (Bld) [Volume fraction] 35.7 % Low 36.0-46.0 [facility] Comment on above: Performed By: #### 5 7021-8 #### TEOFILO Flowers ([id number]) [facility] ([facility]) [address] [place] [address] 50849 Hemoglobin (Bld) [Mass/Vol] 11.9 g/dL Low 12.0-16.0 [facility] Comment on above: Performed By: #### 5 7021-8 #### TEOFILO Flowers ([id number]) [facility] ([facility]) [address] [place] [address] 59108 Immature granulocytes (Bld) [#/Vol] 0.15 x10*3/uL Normal 0.00-0.70 [facility] Comment on above: Performed By: #### 5 7021-8 #### TEOFILO Flowers ([id number]) [facility] ([facility]) [address] [place] [address] 69694 Immature granulocytes/100 WBC (Bld) 1.4 % High 0.0-0.9 [facility] Comment on above: Result Comment: Raquel ture Granulocyte Count (IG) includes promyelocytes, myelocytes and metamyelocytes but does not include bands. Percent differential counts (%) should be interpreted in the context of the absolute cell counts (cells/UL). Performed By: #### 5 7021-8 #### TEOFILO Flowers ([id number]) [facility] ([facility]) [address] [place] [address] 05667 Lymphocytes (Bld) [#/Vol] 1.43 x10*3/uL Normal 1.20-4.80 [facility] Comment on above: Performed By: #### 5 7021-8 #### TEOFILO Flowers ([id number]) [facility] ([facility]) [address] [place] [address] 25907 Lymphocytes/100 WBC (Bld) 13.2 % Normal 13.0-44.0 [facility] Comment on above: Performed By: #### 5 7021-8 #### TEOFILO Flowers ([id number]) [facility] ([facility]) [address] [place] [address] MCH (RBC) [Entitic mass] 30.0 pg Normal 26.0-34.0 [facility] Comment on above: Performed By: #### 5 7021-8 #### TEOFILO Flowers ([id number]) [facility] ([facility]) [id number] [place] [address] 86527 MCHC (RBC) [Mass/Vol] 33.3 g/dL Normal 32.0-36.0 [facility] Comment on above: Performed By: #### 5 7021-8 #### TEOFILO Flowers ([id number]) [facility] ([facility]) [id number] [place] [address] 04842 MCV (RBC) [Entitic vol] 90 fL Normal 80-100 [facility] Comment on above: Performed By: #### 5 7021-8 #### TEOFILO Flowers ([id number]) [facility] ([facility]) [address] [place] [address] 57281 Monocytes (Bld) [#/Vol] 0.61 x10*3/uL Normal 0.10-1.00 [facility] Comment on above: Performed By: #### 5 7021-8 #### TEOFILO Flowers ([id number]) [facility] ([facility]) [address] [place] [address] 27444 Monocytes/100 WBC (Bld) 5.6 % Normal 2.0-10.0 [facility] Comment on above: Performed By: #### 5 7021-8 #### TEOFILO Flowers ([id number]) [facility] ([facility]) [address] [place] [address] 78912 Neutrophils (Bld) [#/Vol] 8.45 x10*3/uL High 1.20-7.70 [facility] Comment on above: Result Comment: Perc ent differential counts (%) should be interpreted in the context of the absolute cell counts (cells/uL). Performed By: #### 5 7021-8 #### TEOFILO GUTHRIE L ([id number]) [facility] ([facility]) [address] [place] [address] 47137 Neutrophils/100 WBC (Bld) 77.7 % Normal 40.0-80.0 [facility] Comment on above: Performed By: #### 5 7021-8 #### TEOFILO VILLALOBOSMOTZHORACE L ([id number]) [facility] ([facility]) [address] [place] [address] 57129 Nucleated RBC/100 WBC (Bld) [Ratio] 0.0 /100 WBCs Normal 0.0-0.0 [facility] Comment on above: Performed By: #### 5 7021-8 #### TEOFILO HASTINGSTZHORACE L ([id number]) [facility] ([facility]) [address] [place] [address] 76871 Platelets (Bld) [#/Vol] 146 x10*3/uL Low 150-450 [facility] Comment on above: Performed By: #### 5 7021-8 #### TEOFILO GUTHRIE L ([id number]) [facility] ([facility]) [address] [place] [address] 45243 RBC (Bld) [#/Vol] 3.97 x10*6/uL Low 4.00-5.20 [facility] Comment on above: Performed By: #### 5 7021-8 #### TEOFILO VILLALOBOSMOTZER L ([id number]) [facility] ([facility]) [id number] [place] [address] 69286 WBC (Bld) [#/Vol] 10.9 x10*3/uL Normal 4.4-11.3 [facility] Comment on above: Performed By: #### 5 7021-8 #### TEOFILO VILLALOBOSMOTZER L ([id number]) [facility] ([facility]) [id number] [place] [address] 03311 ECG 12-LEADon 10-13-2024 ECG 12-LEAD Ventricular Rate 60 Atrial Rate 59 QRS Duration 168 Q-T Interval 574 QTC Calculation(Bazett) 574 R [place] -67 T [place] 105 QRS Count 9 Q Onset 179 T Offset 466 QTC Fredericia 574 Diagnosis Ventricular-paced rhythm Abnormal ECG When compared with ECG of 13-SEP-2024 12:54, Electronic ventricular pacemaker has replaced Atrial fibrillation Confirmed by Lashonda Beltrán ([id number]) on 10/27/2024 10:44:31 PM Normal [facility] Glucose Test strip manual (B ld) [Mass/Vol]on 10-13-2024 Glucose [Mass/Vol] 97 mg/dL 74 - 99 mg/dL [facility] Interpretation and review of laboratory results Normal [facility] Glucose [Mass/Vol] 97 mg/dL Normal 74-99 [facility] Comment on above: Performed By: #### 2 341-6 #### TEOFILO Flowers ([id number]) [facility] ([facility]) [address] [place] [address] Hepatic function 2000 panelo n 10-13-2024 Albumin BCP dye [Mass/Vol] 3.7 g/dL 3.4 - 5.0 g/dL [facility] ALP [Catalytic activity/Vol] 62 U/L 33 - 136 U/L [facility] ALT With P-5'-P [Catalytic activity/Vol] 17 U/L 7 - 45 U/L [facility] Comment on above: Patients treated wit h Sulfasalazine may generate falsely decreased results for ALT. AST With P-5'-P [Catalytic activity/Vol] 23 U/L 9 - 39 U/L [facility] Bilirubin [Mass/Vol] 1 mg/dL 0.0 - 1 .2 mg/dL [facility] Bilirubin.direct [Mass/Vol] 0.2 mg/dL 0.0 - 0.3 mg/dL [facility] Interpretation and review of laboratory results Normal [facility] Protein [Mass/Vol] 6.4 g/dL 6.4 - 8.2 g/dL [facility] Albumin BCP dye [Mass/Vol] 3.7 g/dL Normal 3.4-5.0 [facility] Comment on above: Performed By: #### 2 6835-3 #### TEOFILO Flowers ([id number]) [facility] ([facility]) [address] [place] [address] ALP [Catalytic activity/Vol] 62 U/L Normal 33-136 [facility] Comment on above: Performed By: #### 2 4325-3 #### TEOFILO Flowers ([id number]) [facility] ([facility]) [address] [place] [address] ALT With P-5'-P [Catalytic activity/Vol] 17 U/L Normal 7-45 [facility] Comment on above: Result Comment: Lynette ents treated with Sulfasalazine may generate falsely decreased results for ALT. Performed By: #### 2 5-3 #### TEOFILO Flowers ([id number]) [facility] ([facility]) [address] [place] [address] AST With P-5'-P [Catalytic activity/Vol] 23 U/L Normal 9-39 [facility] Comment on above: Performed By: #### 2 5-3 #### TEOFILO Flowers ([id number]) [facility] ([facility]) [address] [place] [address] Bilirubin [Mass/Vol] 1.0 mg/dL Normal 0.0-1.2 [facility] Comment on above: Performed By: #### 2 5-3 #### TEOFILO Flowers ([id number]) [facility] ([facility]) [address] [place] [address] Bilirubin.direct [Mass/Vol] 0.2 mg/dL Normal 0.0-0.3 [facility] Comment on above: Performed By: #### 2 5-3 #### TEOFILO Flowers ([id number]) [facility] ([facility]) [address] [place] [address] Protein [Mass/Vol] 6.4 g/dL Normal 6.4-8.2 [facility] Comment on above: Performed By: #### 2 5-3 #### TEOFILO Flowers ([id number]) [facility] ([facility]) [address] [place] [address] Magnesiumon 10-13-2024 Magnesium [Mass/Vol] 1.87 mg/dL 1.60 - 2.40 mg/dL [facility] Magnesium [Mass/Vol] 1.87 mg/dL Normal 1.60-2.40 [facility] Comment on above: Performed By: #### 1 9123-9 #### TEOFILO Flowers ([id number]) [facility] ([facility]) [address] [place] [address] No Panel Informationon 10-13 Images from the original result were not included. Atrial Fibrillation ablation Procedures Atrial Fibrillation ablation (94636), LA Pacing and recording (39851), 3D Mapping (45193), Intracardiac Echocardiogram (56403), Transseptal Catheterization (22954), Ultrasound Guided vascular access (42000), Insert temporary transvenous pacing electrode (04243) Patient history: Please refer to the detailed history and physical on the patient's medical chart. Procedure narrative: The procedure was performed under general anesthesia (administered and monitored by marble setter helper and E LEARNING MANAGER). Anesthesia sedated and intubated the patient without any acute complications. Radial arterial line was placed for continuous hemodynamic monitoring. 1. The right femoral vein was accessed x 2 using the modified Seldinger technique. 2 sheaths were inserted. The left femoral vein was accessed once and 1 sheath was inserted. 3. Under fluoroscopic guidance an intracardiac echocardiogram catheter (ICE) was introduced into the right atrium. The right atrium, left atrium, left atrial appendage, RV were evaluated. No obvious structural abnormalities were noted. Initial imaging revealed trace pericardial effusion. 4. Via the 8Fr femoral venous access a Decapolar CS catheter by [employer] was introduced and placed into the distal coronary sinus. 5. The 8.5Fr right femoral vein access was then switched to a SLO sheath and positioned appropriately over an exchange wire cephalad to the site of transeptal puncture. 6. A heparin bolus and drip was initiated with intermittent monitoring of ACT values, ensuring therapeutic anticoagulation throughout the case. Transseptal catheterization: Under fluoroscopic and ICE guidance the BRK needle was introduced into the SLO sheath and single transseptal catheterization was performed. 3D mappin. A LA 3D electroanatomic voltage mapping was created with the Biosense PentaRay catheter. There were 4 pulmonary veins. There were scattered significant low voltage areas suggestive of fibrotic remodeling. We attempted to do activation mapping of what appeared to be an atypical flutter versus atrial tachycardia but it was difficult to get a good map given the low voltage. 2. The PentaRay mapping catheter was removed. 3. The RF ablation catheter Biosense ST/SF was then introduced via the sheath into the left atrium. Ablation: 1. During ablation esophageal temperature monitoring was utilized throughout the procedure. 2. RF was delivered at a power of 25-30W with adequate lesions by Visitag [employer] criteria. Visitags were used to identify the ablation sites. 3. PV antral isolation was achieved by wide area circumferential ablation (WACA) for each PV. RF was also delivered across the quan of the ipsilateral PVs. 4. PV entrance and exit block was confirmed. 4/4 Pulmonary veins were isolated. 5. Given the large areas of scar a posterior wall box was also created including the upper veins, as well as the lower veins to create a posterior box. 6. As patient was cardioverted she was noted to be tachycardic in the 20s with an underlying ventricular or junctional escape with retrograde conduction. She did not have sinus node activity at this time. Temporary pacemaker placement: After sheaths were pulled back into the right atrium and protamine was given. A Cook needle was used to access the right internal jugular under ultrasound guidance. A 6 Afghan peel-away sheath was then placed. A pacing lead was advanced to the right ventricular apical septum and screwed in. Special testing showed sub-1 mA thresholds with good capture. It was then connected to adapter to the pacing box and secured. End-of-case: 1. We made a final evaluation for pericardial effusion using the ICE catheter. Unchanged trace effusion was noted at the end of the procedure. 2. Sheaths were removed and hemostasis was obtained at the right femoral venous access sites with figure of 8 stopcock. 3. The patient was successfully extubated and was able to move all 4 extremities spontaneously and follow commands. The patient was then moved to PACU/holding for recovery. She will be admitted to CICU for monitoring. Summary: 1. Successful radiofrequency catheter ablation with PVI and posterior wall isolation 2. Sinus node dysfunction requiring temporary RV pacing lead Recommendation: 1. Admit CICU to monitor for rhythm 2. Resume oral anti coagulation @ 7-9pm tonight. Please DO NOT hold blood thinner 3. Start protonix 40 daily x30 days. 4. Hold flecainide and BB See complete procedural log and parameters. SYNGO_SECTRA_ CARDIOLAB_XPE R [facility] Work Phone: Interpretation and review of laboratory results Normal [facility] PT and aPTT panel Coag (PPP) Ordered By: Mago Humphreys on 10-13-2024 aPTT Coag (PPP) [Time] 133 s Critically high [facility] INR Coag (PPP) [Relative time] 1.1 {INR} 0.9 - 1.1 [facility] Interpretation and review of laboratory results Abnormal [facility] PT Coag (PPP) [Time] 12.6 s [facility] The APTT is no longe r used for monitoring Unfractionated Heparin Therapy. For monitoring Heparin Therapy, use the Heparin Assay. [facility] PT and aPTT panel Coag (PPP) on 10-13-2024 aPTT Coag (PPP) [Time] 133 s Critically high 27-38 [facility] Comment on above: Order Comment: The A PTT is no longer used for monitoring Unfractionated Heparin Therapy. For monitoring Heparin Therapy, use the Heparin Assay. Performed By: #### 3 4529-8 #### TEOFILO Flowers ([id number]) [facility] ([facility]) [address] [place] [address] 72295 INR Coag (PPP) [Relative time] 1.1 Normal 0.9-1.1 [facility] Comment on above: Order Comment: The A PTT is no longer used for monitoring Unfractionated Heparin Therapy. For monitoring Heparin Therapy, use the Heparin Assay. Performed By: #### 3 4529-8 #### TEOFILO Flowers ([id number]) [facility] ([facility]) [address] [place] [address] 64245 PT Coag (PPP) [Time] 12.6 s Normal 9.8-12.8 [facility] Comment on above: Order Comment: The A PTT is no longer used for monitoring Unfractionated Heparin Therapy. For monitoring Heparin Therapy, use the Heparin Assay. Performed By: #### 3 4529-8 #### TEOFILO Flowers ([id number]) [facility] ([facility]) [address] [place] [address] Phosphateon 10-13-2024 Phosphate [Mass/Vol] 3.5 mg/dL Normal 2.5-4.9 [facility] Comment on above: Result Comment: The performance characteristics of phosphorus testing in heparinized plasma have been validated by the individual laboratory site where testing is performed. Testing on heparinized plasma is not approved by the FDA; however, such approval is not necessary. Performed By: #### 2 777-1 #### TEOFILO Flowers ([id number]) [facility] ([facility]) [address] [place] [address] Phosphoruson 10-13-2024 Phosphate [Mass/Vol] 3.5 mg/dL 2.5 - 4 .9 mg/dL [facility] Comment on above: The performance marc acteristics of phosphorus testing in heparinized plasma have been validated by the individual laboratory site where testing is performed. Testing on heparinized plasma is not approved by the FDA; however, such approval is not necessary. TSHon 10-13-2024 TSH Qn 5.02 m[IU]/L High [facility] TSH Qnon 10-13-2024 Interpretation and review of laboratory results Abnormal [facility] TSH testing is performed using different testing methodology at [facility] than at other [facility]. Direct result comparisons should only be made within the same method. [facility] Thyrotropinon 10-13-2024 TSH Qn 5.02 m[IU]/L High 0.44-3.98 [facility] Comment on above: Order Comment: TSH t esting is performed using different testing methodology at [facility] than at other [facility]. Direct result comparisons should only be made within the same method. Performed By: #### 3 016-3 #### TEOFILO Flowers ([id number]) [facility] ([facility]) [address] [place] [address] Basic Metabolic Profile (BMP )on 09-30-2024 BUN/CRE 18.6 RATIO Normal 10-20 [facility] Comment on above: Performed By: #### L 100.0500, L500.2500 ####[facility] [address] [place], [address] CA,Total 9.0 mg/dL Normal 8.5-10.1 [facility] Comment on above: Performed By: #### L 100.0500, L500.2500 ####[facility] [address] [place], [address] Chloride [Moles/Vol] 109 mmol/L High 98-107 [facility] Comment on above: Performed By: #### L 100.0500, L500.2500 ####[facility] [address] [place], [address] CO2 [Moles/Vol] 28.0 mmol/L Normal 21.0-32.0 [facility] Comment on above: Performed By: #### L 100.0500, L500.2500 ####[facility] [address] [place], [address] Creatinine [Mass/Vol] 1.02 mg/dL Normal 0.55-1.02 [facility] Comment on above: Result Comment: The validity of the calculated GFR GFRAA in patients over 70 years has not been determined. Clinical correlation is essential. Performed By: #### L 100.0500, L500.2500 ####[facility] [address] [place], [address] EST GFR - AA 69 mL/min Normal >60 [facility] Comment on above: Result Comment: Afri can Algerian GFR Calc Performed By: #### L 100.0500, L500.2500 ####[facility] [address] [place], [address] GAP 4 Low 5-15 [facility] Comment on above: Performed By: #### L 100.0500, L500.2500 ####[facility] [address] [place], [address] GFR/1.73 sq M.predicted among non-blacks MDRD (S/P/Bld) [Vol rate/Area] 57 mL/min/{1.73_m2} Low >60 [facility] Comment on above: Result Comment: Non- GFR Calc Performed By: #### L 100.0500, L500.2500 ####[facility] [address] [place], [address] Glucose [Mass/Vol] 105 mg/dL Normal 74-106 [facility] Comment on above: Result Comment: Fast ing Glucose result from 100 to 125 mg/dL suggests IMPAIRED HOMEOSTASIS per A.D.A. criteria. Performed By: #### L 100.0500, L500.2500 ####[facility] [address] [place], [address] Potassium [Moles/Vol] 4.5 mmol/L Normal 3.5-5.1 [facility] Comment on above: Result Comment: Slig ht Hemolysis, Result may be falsely increased. Performed By: #### L 100.0500, L500.2500 ####[facility] [address] [place], [address] Sodium [Moles/Vol] 141 mmol/L Normal 136-145 [facility] Comment on above: Performed By: #### L 100.0500, L500.2500 ####[facility] [address] [place], [address] Urea nitrogen [Mass/Vol] 19 mg/dL High 7-18 [facility] Comment on above: Performed By: #### L 100.0500, L500.2500 ####[facility] [address] [place], [address] Blood urea nitrogen (BUN)/cr eatinine ratioon 09-30-2024 Urea nitrogen/Creatinine [Mass ratio] 18.6 mg/mg 10- [facility] CBC-Complete Blood Cnt No Di ffon 09-30-2024 Erythrocyte distribution width (RBC) [Ratio] 12.8 % Normal 11.6-14.6 [facility] Comment on above: Performed By: #### L 100.0500, L500.2500 #### [facility] [address] [place], [address] Hematocrit (Bld) [Volume fraction] 40.0 % Normal 37-47 [facility] Comment on above: Performed By: #### L 100.0500, L500.2500 #### [facility] [address] [place], [address] Hemoglobin (Bld) [Mass/Vol] 13.0 g/dL Normal 12.0-15.0 [facility] Comment on above: Performed By: #### L 100.0500, L500.2500 #### [facility] [address] [place], [address] MCH (RBC) [Entitic mass] 29.7 pg Normal 27.0-32.0 [facility] Comment on above: Performed By: #### L 100.0500, L500.2500 #### [facility] [address] [place], [address] MCHC (RBC) [Mass/Vol] 32.5 g/dL Normal 32-36 [facility] Comment on above: Performed By: #### L 100.0500, L500.2500 #### [facility] [address] [place], [address] MCV (RBC) [Entitic vol] 91.3 fL Normal 81-99 [facility] Comment on above: Performed By: #### L 100.0500, L500.2500 #### [facility] [address] [place], [address] Platelet mean volume (Bld) [Entitic vol] 10.8 fL Normal 6.2-12.0 [facility] Comment on above: Performed By: #### L 100.0500, L500.2500 #### [facility] [address] [place], [address] Platelets (Bld) [#/Vol] 161 10*3/uL Normal 150-450 [facility] Comment on above: Performed By: #### L 100.0500, L500.2500 #### [facility] [address] [place], [address] RBC (Bld) [#/Vol] 4.38 10*6/uL Normal 4.2-5.4 [facility] Comment on above: Performed By: #### L 100.0500, L500.2500 #### [facility] [address] [place], [address] RDW SD 43.1 fl Normal 35.1-43.9 [facility] Comment on above: Performed By: #### L 100.0500, L500.2500 #### [facility] [address] [place], [address] WBC (Bld) [#/Vol] 5.9 10*3/uL Normal 4.4-11.0 [facility] Comment on above: Performed By: #### L 100.0500, L500.2500 #### [facility] [facility] [address] [place], [address] Carbon dioxide measurementon 09-30-2024 CO2 [Moles/Vol] 28.0 mmol/L 21.0-32.0 [facility] Chloride measurementon 09-30 Chloride [Moles/Vol] 109 mmol/L High 98-107 [facility] Erythrocyte distribution wid th ratioon 09-30-2024 Erythrocyte distribution width (RBC) [Ratio] 12.8 % 11.6-14.6 [facility] Erythrocyte distribution wid th standard deviationon 09-30-2024 Erythrocyte distribution width (RBC) [Entitic vol] 43.1 fL 35.1-43.9 [facility] Estimated glomerular filtrat ion rate (GFR) Americanon 09-30-2024 Estimated GFR (MDRD) Amer 69 mL/min >60 [facility] Comment on above: GFR Calc Glomerular filtration rate ( GFR) estimationon 09-30-2024 Estimated GFR (MDRD) Non-Af Amer 57 mL/min Low >60 [facility] Comment on above: Non- GFR Calc Glucose measurementon 2023 Glucose [Mass/Vol] 105 mg/dL 74-106 [facility] Comment on above: Fasting Glucose resu lt from 100 to 125 mg/dL suggests IMPAIRED HOMEOSTASIS per A.D.A. criteria. Hematocrit Auto (Bld) [Volum e fraction]on 09-30-2024 Hematocrit (Bld) [Volume fraction] 40.0 % 37-47 [facility] Hemoglobin measurementon Hemoglobin (Bld) [Mass/Vol] 13.0 g/dL 12.0-15.0 [facility] MCV (mean corpuscular volume ) determinationon 09-30-2024 MCV (RBC) [Entitic vol] 91.3 fL 81-[address] [facility] Mean corpuscular hemoglobin (MCH) determinationon 09-30-2024 MCH (RBC) [Entitic mass] 29.7 pg 27.0-32.0 [facility] Mean corpuscular hemoglobin concentration (MCHC) determinationon 09-30-2024 MCHC (RBC) [Mass/Vol] 32.5 g/dL 32-36 [facility] Mean platelet volume determi nationon 09-30-2024 Platelet mean volume (Bld) [Entitic vol] 10.8 fL 6.2-12.0 [facility] Platelet counton 09-30-2024 Platelets (Bld) [#/Vol] 161 10*3/uL 150-450 [facility] Potassium measurementon 09-09 Potassium [Moles/Vol] 4.5 mmol/L 3.5-5.1 [facility] Comment on above: Slight Hemolysis, Re sult may be falsely increased. RBC Auto (Bld) [#/Vol]on RBC (Bld) [#/Vol] 4.38 10*6/uL 4.2-5.4 [facility] Serum anion gap measuremento n 09-30-2024 Anion gap [Moles/Vol] 4 mmol/L Low 5-15 [facility] Serum or plasma calcium tripp urement (mass/volume)on 09-30-2024 Calcium [Mass/Vol] 9.0 mg/dL 8.5-10.1 [facility] Serum or plasma creatinine m easurement (mass/volume)on 09-30-2024 Creatinine [Mass/Vol] 1.02 mg/dL 0.55-1.02 [facility] Comment on above: The validity of the calculated GFR & GFRAA in patients over 70 years has not been determined. Clinical correlation is essential. Serum or plasma urea nitroge n measurement (mass/volume)on 09-30-2024 Urea nitrogen [Mass/Vol] 19 mg/dL High 7-18 [facility] Sodium levelon 09-30-2024 Sodium [Moles/Vol] 141 mmol/L 136-145 [facility] White blood cell (WBC) count on 09-30-2024 WBC (Bld) [#/Vol] 5.9 10*3/uL 4.4-11.0 [facility] 12 Lead EKG performed by [facility] on 09-14-2024 12 Lead EKG performed by [facility] [address] [facility] [place] [address] 12 Lead EKG performed by [facility] 09/14/24 0809 MR#: [id number] Acct: [id number] Name: RADHA THOMAS Rep #: [id number] : 1955 69 From: Joy Dennis Attending Dr: PAOLO Sewell Status: DEP AMB Ordering Dr: Joy Baltazar Date: 05/31 Location: [facility] Sex: F C Admitted: [facility]/12 Lead EKG performed by [facility] ECG Report Interpretation -----atrial fibrillation Low voltage in precordial leads. -Nonspecific QRS widening. - Nonspecific T-abnormality. ABNORMAL Electronically signed on 09/21/2024 at 08:01 by Storm Ryanwood Software Version 8610 09/21/24803 Date Joy BOONE CC: Dr. David Anderson MD Date Dictated: 09/14/24808 Date Transcribed: 09/14/24808 Director Safety: SATISH Signed Normal [facility] Cardiology Visit Reporton Cardiology Visit Report [facility] [address] [place] [address] OFFICE VISIT Date of Service: 09/14/24 MR#: [id number] Acct: [id number] Name: RADHA THOMAS Rep #: [id number] : 1955 Provider: PAOLO Ruiz Age/Sex: 69/F Location: [facility] Status: Signed HPI HPI History of Present Illness Details: Radha Thomas 69-year-old lady who presented for evaluation of her recent episode of palpitations. She says that it was unbeknownst to her and she had this unusual feeling with palpitations and fluttering heartbeat. They had been going on for a few days when she saw you and at the time she saw you an EKG that was done did suggest that she was in atrial fibrillation with a rate of 96 bpm. Blood work was done which demonstrated a normal lipid profile as well as TSH. She was put on a beta-clemente and anticoagulation with a [id number] score of 3. Patient did undergo a stress test in April 2024 this demonstrated atrial fibrillation with no evidence of ischemia. She did undergo a cardioversion in April 2024, unfortunately she did not maintain sinus rhythm. She was then started on flecainide. Did undergo a cardioversion and unfortunately did not maintain sinus rhythm. She has been referred to EP for a possible ablation. She did have a Holter monitor in August which demonstrated 100% atrial fibrillation with an average heart rate of 79 beats. Patient was seen by EP at [facility]. She is in the process of being scheduled for an ablation. She still does have fatigue. She is not sure if this is related to her obstructive sleep apnea. She does know that she has obstructive sleep apnea and has not tolerated CPAP in the past. However she does feel that her atrial fibrillation is contributing to her shortness of breath and fatigue. She does feel palpitations. Some days are worse than others. Intake Vital Signs 06/09/24 10:52 07/13/24 10:57 09/14/24 08:36 09/14/24 08:39 Height 5 ft 5 in 5 ft 5 in 5 ft 5 in 5 ft 5 in Weight: 172 lb BMI 28.6 BP 137/83 H Blood Pressure Location Lt brachial Position Sitting Respiration 18 Pulse 82 Pulse Source Monitor Pulse Oximetry (%) 97 Intake Visit Reasons: 3 M Commercial [employer] Required: No Is patient in pain?: No Allergies No Known Allergies Allergy (Verified 09/14/24 08:36) Medications ???Medication ???Instructions ???Recorded ???Confirmed ???Type calcium 600 mg (as 2 cap PO DAILY 06/21/23 09/14/24 History carbonate)-vitamin D3 5 mcg (200 unit) capsule (Calcium 600 + D(3)) estradiol 0.5 mg tablet 0.25 mg PO Q4D 06/21/23 09/14/24 History levothyroxine 50 mcg tablet 50 mcg PO DAILY 06/21/23 09/14/24 History lisinopril 10 mg tablet 10 mg PO DAILY 06/21/23 09/14/24 History multivitamin 1 tab PO DAILY 02/02/24 09/14/24 History apixaban 5 mg tablet (Eliquis) 5 mg PO BID #180 tabs 03/27/24 09/14/24 Rx metoprolol tartrate 25 mg tablet 25 mg PO BID #180 tabs 05/15/24 09/14/24 Rx flecainide 100 mg tablet 100 mg PO Q12H #60 tabs 07/03/24 09/14/24 Rx Have you fallen in the past year?: No [facility] Medical History (Updated 09/14/24 @ 08:57 by Joy BOONE, PA) Persistent atrial fibrillation History of cardioversion Afib Palpitations Thyroid disease Low iron Hypertension History of benign breast biopsy History of meningioma Surgical History History of mandibular surgery History of hysterectomy History of D C History of tonsillectomy and adenoidectomy Social History Smoking Status: Never smoker alcohol intake: current alcohol intake frequency: holidays/special occasions only ROS Const Const: Positive for fatigue (no good, tired all the time); Negative for weakness Eyes Eyes: Negative for transient loss of vision or change in vision ENT ENT: Negative for balance problems Cardio Chest Pain: Yes (improved, not as much heaviness in the past) Palpitations: Yes (sometimes) Edema: None Muscle aches with walking: None Resp Respiratory: Positive for SOB with activity; Negative for SOB at rest or SOB orthopnea SOB lying down GI GI: Negative heartburn, bright, red blood in stools or black,tarry stools : Negative for hematuria Musc Musc: Negative for muscle aches/ myalgia, muscle weakness, joint pain or balance problems Neuro Neuro: Negative for weakness Endo Endo: Positive for fatigue (no good, tired all the time) Cardiology Exam Const Appearance: cooperative, healthy appearing, comfortable, no acute distress and well developed Orientation: alert, awake and oriented x3 Head Head: normal to inspection Ears: hearing grossly normal bilaterally Nose: external n (more content not included)... Normal [facility] ECG 12-LEADon 09-13-2024 ECG 12-LEAD Ventricular Rate 73 Atrial Rate 150 QRS Duration 98 Q-T Interval 408 QTC Calculation(Bazett) 449 R [place] 31 T [place] 64 QRS Count 13 Q Onset 220 T Offset 424 QTC Fred[place] 435 Diagnosis Atrial fibrillation Abnormal ECG No previous ECGs available Confirmed by Lashonda Beltrán ([id number]) on 09/13/2024 3:38:49 PM Normal [facility] Basic Metabolic Profile (BMP )on 08-11-2024 BUN/CRE 18.6 RATIO Normal 08-27 [facility] Comment on above: Performed By: #### L 500.2500, L501.5200 ####[facility] [address] [place], [address] CA,Total 9.3 mg/dL Normal 8.5-10.1 [facility] Comment on above: Performed By: #### L 500.2500, L501.5200 ####[facility] [address] [place], [address] Chloride [Moles/Vol] 107 mmol/L Normal 98-107 [facility] Comment on above: Performed By: #### L 500.2500, L501.5200 ####[facility] [address] [place], [address] CO2 [Moles/Vol] 27.0 mmol/L Normal 21.0-32.0 [facility] Comment on above: Performed By: #### L 500.2500, L501.5200 ####[facility] [address] [place], [address] Creatinine [Mass/Vol] 0.91 mg/dL Normal 0.55-1.02 [facility] Comment on above: Result Comment: The validity of the calculated GFR GFRAA in patients over 70 years has not been determined. Clinical correlation is essential. Performed By: #### L 500.2500, L501.5200 ####[facility] [address] [place], [address] EST GFR - AA 78 mL/min Normal >60 [facility] Comment on above: Result Comment: Afri can Algerian GFR Calc Performed By: #### L 500.2500, L501.5200 ####[facility] [address] [place], [address] GAP 3 Low 5-15 [facility] Comment on above: Performed By: #### L 500.2500, L501.5200 ####[facility] [address] [place], [address] GFR/1.73 sq M.predicted among non-blacks MDRD (S/P/Bld) [Vol rate/Area] 65 mL/min/{1.73_m2} Normal >60 [facility] Comment on above: Result Comment: Non- GFR Calc Performed By: #### L 500.2500, L501.5200 ####[facility] [address] [place], [address] Glucose [Mass/Vol] 104 mg/dL Normal 74-106 [facility] Comment on above: Result Comment: Fast ing Glucose result from 100 to 125 mg/dL suggests IMPAIRED HOMEOSTASIS per A.D.A. criteria. Performed By: #### L 500.2500, L501.5200 ####[facility] [address] [place], [address] Potassium [Moles/Vol] 4.6 mmol/L Normal 3.5-5.1 [facility] Comment on above: Performed By: #### L 500.2500, L501.5200 ####[facility] [address] [place], [address] Sodium [Moles/Vol] 137 mmol/L Normal 136-145 [facility] Comment on above: Performed By: #### L 500.2500, L501.5200 ####[facility] [address] [place], [address] Urea nitrogen [Mass/Vol] 17 mg/dL Normal 7-18 [facility] Comment on above: Performed By: #### L 500.2500, L501.5200 ####[facility] [address] [place], [address] Magnesiumon 08-11-2024 Magnesium [Mass/Vol] 2.1 mg/dL Normal 1.6-2.6 [facility] Comment on above: Performed By: #### L 500.2500, L501.5200 ####[facility] [address] [place], [address] 12 Lead EKG performed by [facility] on 07-20-2024 12 Lead EKG performed by [facility] [address] [place] [address] 12 Lead EKG performed by [facility] 07/20/24 0759 MR#: [id number] Acct: [id number] Name: RADHA THOMAS Rep #: [id number] : 1955 69 From: Joy Dennis Attending Dr: PAOLO Sewell Status: DEP AMB Ordering Dr: Joy Baltazar Date: 07/09 01/01 Location: [facility] Sex: F C Admitted: [facility]/12 Lead EKG performed by [facility] ECG Report Interpretation -----atrial fibrillation - Diffuse nonspecific T-abnormality. Low voltage -possible pulmonary disease. ABNORMAL Electronically signed on 07/20/2024 at 15:53 by Storm Ryanwood Software Version [id number] 07/20/24 1557 Date Joy BOONE CC: Dr. David Anderson MD Date Dictated: 07/20/24758 Date Transcribed: 07/20/24758 Director Safety: SATISH Signed Normal [facility] Procedure Reporton 4 Procedure Report [facility] Medical Records Department [address] [place] [address] Procedure Report 07/13/24 1317 MR#: [id number] Acct: [id number] Name: RADHA THOMAS Rep #: [id number] : 1955 69 From: Leonid Marcano DO PCP: Dr. David Anderson MD Status:[facility] Location: [facility] Procedure Report Date of Procedure: 07/13/24 CONSCIOUS SEDATION REPORT DATE OF SERVICE: July 13, 2024 BRIEF HISTORY OF PRESENT ILLNESS: The patient is a 68-year-old female who presented to [facility] for an elective outpatient cardioversion due to underlying atrial fibrillation. The patient did undergo a prior ca rdioversion in April 2024. The patient denied any history of any prior anesthetic complications. Although she does have a history of obstructive sleep apnea, she does not utilize any form of nocturnal PAP therapy. The patient is a non-smoker, without any history of COPD or asthma. Her last surface echocardiogram demonstrated an ejection fraction of approximately 60%. The patient is systemically anticoagulated on Eliquis. PHYSICAL EXAMINATION: VITAL SIGNS: Reviewed and were acceptable. GENERAL: The patient is a female, in no apparent distress, speaking in full sentences. HEENT: Normocephalic, atraumatic. Mucous membranes are moist and pink. Good mouth opening noted. Trachea is midline. Good neck mobility. CHEST: S1, S2 irregularly irregular. No murmurs, rubs or gallops were noted. LUNGS: Clear to auscultation bilaterally without appreciable wheezes, rales or rhonchi. ABDOMEN: Soft, nontender, nondistended. Positive bowel sounds. EXTREMITIES: There is no clubbing, cyanosis or edema. ASA Class: II DESCRIPTION OF PROCEDURE: After confirmation of informed consent, the patient's anesthesia plan was reviewed in detail. Propofol was chosen. Risks and benefits were reviewed and the patient agreed to proceed. At 1238, the patient was given 40 mg of propofol. The patient achieved an appropriate level of sedation and was given a 200 joule synchronized cardioversion by Dr. Ryan at the bedside. This was successful in achieving normal sinus rhythm. The patient was monitored until 1252, at which time she reached her baseline mental status and function. The patient tolerated the procedure well. COMPLICATIONS: None ESTIMATED BLOOD LOSS: None RECOMMENDATIONS: Okay to recover in usual fashion. Procedures Pulmonary Pulmonary Procedures /Diagnostic Testin Con Sedation 07/13/24 1319 Cosigner Signature (if applicable): CC: Dr. David Anderson MD; Dr. Storm Ryan MD; Dr. Leonid Marcano DO Signed Normal [facility] Procedure Report [facility] Medical Records Department [address] [place] [address] Procedure Report 07/13/24 1246 MR#: [id number] Acct: [id number] Name: RADHA THOMAS Rep #: [id number] : 1955 69 From: Storm Ryan MD PCP: Dr. David Anderson MD Status[facility] Procedure Report Date of Procedure: 07/13/24 DC cardioversion. 69-year-old lady with a history of chronic persistent atrial fibrillation.. The patient was brought to cardiac catheterization lab in the postabsorptive nonsedated state. Informed consent was obtained. The patient was seen by Dr. Marcano of the critical care division. Anterior-posterior pads were applied. The patient was administered 40 mg of intravenous propofol. 200 J of synchronized DC cardioversion energy were applied and the patient became briefly asystolic and then eventually converted back to sinus rhythm. Patient tolerated the procedure well. Conclusion: Successful DC cardioversion from atrial fibrillation to sinus rhythm. Continue current medications Follow-up as per office protocol. 07/13/24 1249 Cosigner Signature (if applicable): CC: Dr. David Anderson MD; Dr. Storm Ryan MD Signed Normal [facility] Basic Metabolic Profile (BMP )on 06-29-2024 BUN/CRE 16.8 RATIO Normal 10-20 [facility] Comment on above: Performed By: #### L 500.2500, L300.3900 #### [facility] [address] [place], [address] CA,Total 9.6 mg/dL Normal 8.5-10.1 [facility] Comment on above: Performed By: #### L 500.2500, L300.3900 #### [facility] [address] [place], [address] Chloride [Moles/Vol] 107 mmol/L Normal 98-107 [facility] Comment on above: Performed By: #### L 500.2500, L300.3900 #### [facility] [address] [place], [address] CO2 [Moles/Vol] 29.0 mmol/L Normal 21.0-32.0 [facility] Comment on above: Performed By: #### L 500.2500, L300.3900 #### [facility] [address] [place], [address] Creatinine [Mass/Vol] 1.07 mg/dL High 0.55-1.02 [facility] Comment on above: Result Comment: The validity of the calculated GFR GFRAA in patients over 70 years has not been determined. Clinical correlation is essential. Performed By: #### L 500.2500, L300.3900 #### [facility] [address] [place], [address] EST GFR - AA 65 mL/min Normal >60 [facility] Comment on above: Result Comment: Afri can Algerian GFR Calc Performed By: #### L 500.2500, L300.3900 #### [facility] [address] [place], [address] GAP 4 Low 5-15 [facility] Comment on above: Performed By: #### L 500.2500, L300.3900 #### [facility] [address] [place], [address] GFR/1.73 sq M.predicted among non-blacks MDRD (S/P/Bld) [Vol rate/Area] 54 mL/min/{1.73_m2} Low >60 [facility] Comment on above: Result Comment: Non- GFR Calc Performed By: #### L 500.2500, L300.3900 #### [facility] [address] [place], [address] Glucose [Mass/Vol] 106 mg/dL Normal 74-106 [facility] Comment on above: Result Comment: Fast ing Glucose result from 100 to 125 mg/dL suggests IMPAIRED HOMEOSTASIS per A.D.A. criteria. Performed By: #### L 500.2500, L300.3900 #### [facility] [address] [place], [address] Potassium [Moles/Vol] 4.5 mmol/L Normal 3.5-5.1 [facility] Comment on above: Performed By: #### L 500.2500, L300.3900 #### [facility] [address] [place], [address] Sodium [Moles/Vol] 140 mmol/L Normal 136-145 [facility] Comment on above: Performed By: #### L 500.2500, L300.3900 #### [facility] [address] [place], [address] Urea nitrogen [Mass/Vol] 18 mg/dL Normal 7-18 [facility] Comment on above: Performed By: #### L 500.2500, L300.3900 #### [facility] [address] [place], [address] Chest PA and Lateralon 06-29 Chest PA and Lateral [facility] Imaging Services [address] [place] [address] Chest PA and Lateral MR#: [id number] Acct: [id number] Name: RADHA THOMAS Rep #: [id number] : 1955 F 68 From: Juarez Villaseñor MD PCP: Dr. David Anderson MD Status: [facility] Study: Chest PA and Lateral Date of Exam: 06/29/24 Exam# [id number] Ordering Dr: Storm Ryan MD [id number] INDICATION: MCMULLEN EXAMINATION/TECHNIQUE : X-RAY - XR Chest 2 Views COMPARISON: None. Findings: Frontal and lateral views of the chest. LUNG PARENCHYMA: No acute focal airspace disease or mass lesion. PLEURA: No pleural effusion. No pneumothorax. HEART/GREAT VESSELS: Cardiomediastinal silhouette is unremarkable. BONES: Osseous structures are unremarkable for age. RAD/Chest PA and Lateral IMPRESSION: Chest with no acute disease. Electronically Signed: Juarez Villaseñor MD at 21:27 EDT , CC: Dr. David Anderson MD; Dr. Storm Ryan MD Director Safety: Signed Normal [facility] Dexa Bone Density Studyon Dexa Bone Density Study [facility] Imaging Services [address] [place], [place] [address] Dexa Bone Density Study MR#: [id number] Acct: [id number] Name: RADHA THOMAS Rep #: [id number] : 1955 F 68 From: Matt bonilla MD PCP: Dr. David Anderson MD Status: [facility] Study: Dexa Bone Density Study Date of Exam: 06/29/24 Exam# [id number] Ordering Dr: David Anderson [id number] STUDY: DUAL ENERGY X-RAY ABSORPTIOMETRY / DXA REASON FOR EXAM: Female, 68 years old. [id number] TECHNIQUE: Bone Mineral Density (BMD) measurements of lumbar spine and bilateral hips were obtained. COMPARISON: Comparison is made with prior study dated April 30, 2021. FINDINGS: Lumbar Spine (L1-L4): g/cm2 (1.056) / T-score (-0.2) / Z-score (1.9) Findings are suggestive of normal bone density with a low fracture risk. Left Femur Total: g/cm2 (0.937) / T-score (0.0) / Z-score (1.4) Left Femoral Neck: g/cm2 (0.735) / T-score (-1.0) / Z-score (0.7) Right Femur Total: g/cm2 (0.966) / T-score (0.2) / Z-score (1.6) Right Femoral Neck: g/cm2 (0.733) / T-score (-1.0) / Z-score (0.7) The T-Scores on the most recent prior examination were: Lumbar Spine (L1-L4): There has been improvement of bone density since the previous examination. Left Femur Total: which represents an improvement of 1%. Right Femur Total: which represents an improvement of 0.5%. BD/Dexa Bone Density Study IMPRESSION: The patient is considered normal as outlined below according to World [place] Organization (WHO) criteria with a low fracture risk. There has been improvement of bone density since the previous examination. Reference Information: The T-score is the number of standard deviations above or below the standard which is normal for young adults at their peak bone mineral density. The World Health Organization (WHO) interprets the T-scores as follows: Above -1 Normal bone density Between -1 and -2.5 Osteopenia Equal to / or below -2.5 Osteoporosis As a practical clinical guideline, osteopenia may be graded as follows: Mild -1 through -1.5 Moderate -1.6 through -2.0 Severe -2.1 through -2.4 The Z-score is the number of standard deviations above or below age-matched controls. A Z-score of less than -1.5 would be considered abnormal. References: 1. NIH Osteoporosis and Related Bone Diseases www osteo.org 2. International Society for Clinical Densitometry www iscd.org 3. National Osteoporosis Foundation www nof.org Electronically Signed: Matt Cao MD at 8:44 EDT , CC: Dr. David Anderson MD Director Safety: Signed Normal [facility] Prothrombin Time w/INRon INR Coag (PPP) [Relative time] 1.1 {INR} Normal [facility] Comment on above: Performed By: #### L 500.2500, L300.3900 #### [facility] [address] [place], [address] PT Coag (PPP) [Time] 13.8 s Normal 11.7-14.9 [facility] Comment on above: Performed By: #### L 500.2500, L300.3900 #### [facility] [address] [place], [address] SCRN MAMM (CAD)W/JOAQUIN BILATo n 06-29-2024 SCRN MAMM (CAD)W/JOAQUIN BILAT [facility] Imaging Services [address] [address] SCRN MAMM (CAD)W/JOAQUIN BILAT MR#: [id number] Acct: [id number] Name: RADHA THOMAS Rep #: [id number] : 1955 F 68 From: Matt bonilla MD PCP: Dr. David Anderson MD Status: [facility] Study: SCRN MAMM (CAD)W/JOAQUIN BILAT Date of Exam: 06/09 01/01 Exam# [id number] Ordering Dr: David Anderson [id number] MAMMOGRAPHY - BILATERAL SCREENING REASON FOR EXAM: Female, 68 years old. Routine annual screening examination. PERTINENT HISTORY: Mother with breast cancer. Remote left Stereotactic and left excisional breast biopsies. TECHNIQUE: Digital bilateral breast joaquin (3D mammographic acquisition) in the CC and MLO projections. 2-D mediolateral oblique (MLO) and craniocaudad (CC) views of both breasts were obtained. CAD: Full Field Digital Mammography with Computer Added Detection was performed. COMPARISON: Comparison is made with prior study dated May 05, 2023 and April 30, 2022. FINDINGS: Breast Composition: The breasts are heterogeneously dense, which may obscure small masses. There are no dominant masses or suspicious calcifications. A tissue clip marker is seen in the central lower medial quadrant of the left breast. Stable postoperative changes in the inferior aspect of the left breast. No other significant abnormalities are identified. There has been no significant change since the prior study. BI/SCRN MAMM (CAD)W/JOAQUIN BILAT IMPRESSION: Stable bilateral screening mammogram. Yearly follow-up mammogram recommended. (A) ASSESSMENT CATEGORY: BIRADS Category 2: Benign. A letter regarding these results will be sent to the patient by the facility within 30 days. Approximately 10% of breast cancers are not detected by mammography. A normal mammogram should not delay biopsy of a clinically suspicious abnormality. [id number] Electronically Signed: Matt Cao MD at 8:19 EDT , CC: Dr. David Anderson MD Director Safety: Signed Normal [facility] 12 Lead EKG performed by [facility] on 06-09-2024 12 Lead EKG performed by [facility] [address] [place] [address] 12 Lead EKG performed by [facility] 06/09/24 1101 MR#: [id number] Acct: [id number] Name: RADHA THOMAS Rep #: [id number] : 1955 68 From: Storm Ryan MD Attending Dr: Dr. Storm Ryan MD Status: DEP A MB Ordering Dr: Storm Ryan MD Date: 06/09/24 Location: [facility] Sex: F C Admitted: [facility]/12 Lead EKG performed by [facility] ECG Report Interpretation ----- atrial fibrillation -Old anterior infarct. Low voltage -possible pulmonary disease. ABNORMAL Electronically signed on 06/14/2024 at 07:34 by Storm Ryan Software Version [id number] 06/14/24 0738 Date Storm Ryan MD CC: Dr. David Anderson MD Date Dictated: 06/09/241100 Date Transcribed: 06/09/241100 Director Safety: CO Signed Normal [facility] Cardiology Visit Reporton Cardiology Visit Report [facility] [address] [place], [place] [address] OFFICE VISIT Date of Service: 06/09/24 MR#: [id number] Acct: [id number] Name: RADHA THOMAS Rep #: [id number] : 1955 Provider: Dr. Storm Ryan MD Age/Sex: 68/F Location: [facility] Status: Signed [facility] History of Present Illness Details: Radha Thomas 68-year-old lady who presented for evaluation of her recent episode of palpitations. She says that it was unbeknownst to her and she had this unusual feeling with palpitations and fluttering heartbeat. They had been going on for a few days when she saw you and at the time she saw you an EKG that was done did suggest that she was in atrial fibrillation with a rate of 96 bpm. Blood work was done which demonstrated a normal lipid profile as well as TSH. She was put on a beta-clemente and anticoagulation with a [id number] score of 3. She underwent DC cardioversion in April of this year which was successful for a few weeks apparently but she feels that she is back in atrial fibrillation. She did have a stress test on April 24 with demonstrated no evidence of ischemia. Her physical exam today demonstrates clear lung garza irregular rate and rhythm and no pedal edema and her electrocardiogram does confirm that she is in atrial fibrillation with a controlled ventricular response rate of 69 bpm. 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 [employer] Required: No Accompanied by: Is patient in pain?: No Allergies No Known Allergies Allergy (Verified 06/09/24 10:57) Medications ???Medication ???Instructions ???Recorded ???Confirmed ???Type calcium carbonate 600 mg-vitamin 2 cap PO DAILY 06/21/23 06/09/24 History D3 5 mcg (200 unit) capsule (Calcium 600 + D(3)) estradiol 0.5 mg tablet 0.25 mg PO Q4D 06/21/23 06/09/24 History levothyroxine 50 mcg tablet 50 mcg PO DAILY 06/21/23 06/09/24 History lisinopril 10 mg tablet 10 mg PO DAILY 06/21/23 06/09/24 History multivitamin 1 tab PO DAILY 02/02/24 06/09/24 History apixaban 5 mg tablet (Eliquis) 5 mg PO BID #180 tabs 03/27/24 06/09/24 Rx metoprolol tartrate 25 mg tablet 25 mg PO BID #180 tabs 05/15/24 06/09/24 Rx flecainide 100 mg tablet 100 mg PO Q12H #60 tabs 06/09/24 06/09/24 Rx Have you fallen in the past year?: No PFSH Medical History History of cardioversion Afib Palpitations Thyroid disease Low iron Hypertension History of benign breast biopsy History of meningioma Surgical History History of mandibular surgery History of hysterectomy History of D C History of tonsillectomy and adenoidectomy Social History Smoking Status: Never smoker alcohol intake: current alcohol intake frequency: holidays/special occasions only ROS Const Const: Positive for fatigue; Negative for weakness, headache(s), daytime sleepiness or difficulty sleeping ENT ENT: Negative for headache(s), dizziness or Nosebleed/epistaxis Cardio Chest Pain: No Palpitations: Yes (mostly in the evenings) feels like its: irregular Edema: None Resp Respiratory: Negative for SOB with activity, SOB at rest, SOB orthopnea SOB lying down or Cough GI GI: Negative nausea, vomiting or heartburn Neuro Neuro: Negative for dizziness, lightheadedness, near syncope, headache(s) or weakness Endo Endo: Positive for fatigue Cardiology Exam Const Appearance: cooperative, healthy appearing, comfortable, no acute distress and well developed Orientation: alert, awake and oriented x3 Head Head: normal to inspection Ears: hearing grossly normal bilaterally Nose: external nose normal Face and Sinus: face symmetric Mouth: oral mucosae normal, lip normal and moist mucous membranes Eyes General: appearance normal, both eyes and all related structures Eyelids: eyelids normal Conjunctivae: conjunctivae normal Pupils: PERRL EOM: EOM intact bilaterally Neck Neck: normal visual inspection and trachea midline; Negative no JVD Carotids: Negative bruit Chest Chest inspection: normal inspection of the chest Auscultation: Bilateral: Clear to Auscultation Cardio Palpation: normal PMI Rhythm: irregularly irregular Heart sounds: S1 normal and S2 normal; Negative rub, gallop or murmur GI GI: soft, no hepatosplenomegaly and bowel sounds present Neuro General: patient alert, patient awake, patient oriented x3 and CN's II-XI intact bilaterally Ext (more content not included)... Normal [facility] Basophil percentageOrdered B y: Connor Anderson on 01-14-2024 Chloride [Moles/Vol] 109 mmol/L 98-107 [facility] Cholesterol [Mass/Vol] 204 mg/dL <200 [facility] Comment on above: <200 mg/dL Desirable 200-240 mg/dL Borderline >240 mg/dL High Risk Glucose [Mass/Vol] 102 mg/dL 74-106 [facility] Comment on above: Fasting Glucose resu lt from 100 to 125 mg/dL suggests IMPAIRED HOMEOSTASIS per A.D.A. criteria. Potassium [Moles/Vol] 4.0 mmol/L 3.5-5.1 [facility] Sodium [Moles/Vol] 141 mmol/L 136-145 [facility] Triglyceride [Mass/Vol] 35 mg/dL <199 [facility] Comment on above: The drugs N-Acetylcy steine and Metamizole may falsely depress this assay.Serum Triglycerides Reference Interval Normal <150 mg/dL Borderline high 150 - 199 mg/dL High 200 - 499 mg/dL Very High > or = 500 mg/dL Laboratory - Chemistry and C hemistry - challengeOrdered By: Connor Anderson on 01-14-2024 Cholesterol in HDL [Mass/Vol] 79 mg/dL >40 [facility] Comment on above: The drugs N-Acetylcy steine and Metamizole may falsely depress this assay. Reference Range HDL <40 mg/dL Low HDL Cholesterol HDL >or= 60 mg/dL High HDL Cholesterol Cholesterol in LDL [Mass/Vol] 118 mg/dL 0-130 [facility] CO2 [Moles/Vol] 27.0 mmol/L 21.0-32.0 [facility] Urea nitrogen/Creatinine [Mass ratio] 15.8 mg/mg 10-20 [facility] No Panel InformationOrdered By: Connor Anderson on 01-14-2024 Estimated GFR (MDRD) Amer 75 mL/min >60 [facility] Comment on above: GFR Calc Estimated GFR (MDRD) Non-Af Amer 62 mL/min >60 [facility] Comment on above: Non- GFR Calc Free Triiodothyronine (T3) pg/dL 2.2 pg/mL 2.18-3.98 [facility] VLDL Cholesterol 7 mg/dL 5-40 [facility] Serum or plasma calcium tripp urement (mass/volume)Ordered By: Connor Anderson on 01-14-2024 Calcium [Mass/Vol] 9.1 mg/dL 8.5-10.1 [facility] Serum or plasma creatinine m easurement (mass/volume)Ordered By: Connor Anderson on 01-14-2024 Creatinine [Mass/Vol] 0.95 mg/dL 0.55-1.02 [facility] Comment on above: The validity of the calculated GFR & GFRAA in patients over 70 years has not been determined. Clinical correlation is essential. Serum or plasma thyroid stim ulating hormone (TSH) measurement (units/volume)Ordered By: Connor Anderson on 01-14-2024 TSH Qn 2.25 uIU/mL 0.358-3.74 [facility] Serum or plasma urea nitroge n measurement (mass/volume)Ordered By: Connor Anderson on 01-14-2024 Urea nitrogen [Mass/Vol] 15 mg/dL 7-18 [facility] Thin prep Papanicolaou smear with manual screeningOrdered By: Connor Anderson on 01-14-2024 Thin prep Papanicolaou smear with manual screening 5 5-15 [facility] Thin prep Papanicolaou smear with manual screening 0.95 ng/dL 0.76-1.46 [facility] Basophil percentageOrdered B y: Troy Carvalho on 06-28-2023 WBC (Bld) [#/Vol] 5.3 10*3/uL 4.4-11.0 [facility] Blood erythrocytes count (nu mber/volume)Ordered By: Troy Carvalho on 06-28-2023 RBC (Bld) [#/Vol] 3.96 10*6/uL 4.2-5.4 [facility] Blood hemoglobin measurement (mass/volume)Ordered By: Troy Carvalho on 06-28-2023 Hemoglobin (Bld) [Mass/Vol] 11.5 g/dL 12.0-15.0 [facility] Blood platelet mean volumeOr dered By: Troy Carvalho on 06-28-2023 Platelet mean volume (Bld) [Entitic vol] 11.4 fL 6.2-12.0 [facility] Determination of erythrocyte mean corpuscular volume (MCV)Ordered By: Troy Carvalho on 06-28-2023 MCV (RBC) [Entitic vol] 89.4 fL 81-99 [facility] Hematocrit Auto (Bld) [Volum e fraction]Ordered By: Troy Carvalho on 06-28-2023 Hematocrit (Bld) [Volume fraction] 35.4 % 37-47 [facility] Laboratory - Hematology and Cell countsOrdered By: Troy Carvalho on 06-28-2023 Erythrocyte distribution width (RBC) [Entitic vol] 39.9 fL 35.1-43.9 [facility] Erythrocyte distribution width (RBC) [Ratio] 12.2 % 11.6-14.6 [facility] MCH (RBC) [Entitic mass] 29.0 pg 27.0-32.0 [facility] MCHC Auto (RBC) [Mass/Vol]Or dered By: Troy Carvalho on 06-28-2023 MCHC (RBC) [Mass/Vol] 32.5 g/dL 32-36 [facility] Platelets bldOrdered By: Saurav Carvalho on 06-28-2023 Platelets (Bld) [#/Vol] 174 10*3/uL 150-450 [facility] Basophil percentageOrdered B y: Connor Anderson on 06-22-2023 Chloride [Moles/Vol] 107 mmol/L 98-107 [facility] Cholesterol [Mass/Vol] 199 mg/dL <200 [facility] Comment on above: <200 mg/dL Desirable 200-240 mg/dL Borderline >240 mg/dL High Risk Glucose [Mass/Vol] 103 mg/dL 74-106 [facility] Comment on above: Fasting Glucose resu lt from 100 to 125 mg/dL suggests IMPAIRED HOMEOSTASIS per A.D.A. criteria. Potassium [Moles/Vol] 4.4 mmol/L 3.5-5.1 [facility] Sodium [Moles/Vol] 138 mmol/L 136-145 [facility] Triglyceride [Mass/Vol] 41 mg/dL <199 [facility] Comment on above: The drugs N-Acetylcy steine and Metamizole may falsely depress this assay.Serum Triglycerides Reference Interval Normal <150 mg/dL Borderline high 150 - 199 mg/dL High 200 - 499 mg/dL Very High > or = 500 mg/dL Laboratory - Chemistry and C hemistry - challengeOrdered By: Connor Anderson on 06-22-2023 CO2 [Moles/Vol] 27.0 mmol/L 21.0-32.0 [facility] Urea nitrogen/Creatinine [Mass ratio] 12.5 mg/mg 10-20 [facility] No Panel InformationOrdered By: Connor Anderson on 06-22-2023 Estimated GFR (MDRD) Amer 68 mL/min >60 [facility] Comment on above: GFR Calc Estimated GFR (MDRD) Non-Af Amer 56 mL/min >60 [facility] Comment on above: Non- GFR Calc Thyroid Stimulating Hormone (TSH) 1.92 uIU/mL 0.358-3.74 [facility] Vitamin D 25-Hydroxy 71.3 ng/mL [facility] Comment on above: Vitamin D 25(OH) Sta tus Range Deficiency <20 ng/mL (50nmol/L) Insufficiency 20 - 30 ng/mL (50 - 75 nmol/L) Sufficiency 30 - 100 ng/mL (75 - 250 nmol/L) Toxicity >100 ng/mL (>250 nmol/L) Serum or plasma calcium tripp urement (mass/volume)Ordered By: Connor Anderson on 06-22-2023 Calcium [Mass/Vol] 9.2 mg/dL 8.5-10.1 [facility] Serum or plasma cholesterol in HDL measurement (mass/volume)Ordered By: Connor Anderson on 06-22-2023 Cholesterol in HDL [Mass/Vol] 74 mg/dL >40 [facility] Comment on above: The drugs N-Acetylcy steine and Metamizole may falsely depress this assay. Reference Range HDL <40 mg/dL Low HDL Cholesterol HDL >or= 60 mg/dL High HDL Cholesterol Serum or plasma cholesterol in VLDL measurement (mass/volume)Ordered By: Connor Anderson on 06-22-2023 Cholesterol in VLDL [Mass/Vol] 8 mg/dL 5-40 [facility] Serum or plasma creatinine m easurement (mass/volume)Ordered By: Connor Anderson on 06-22-2023 Creatinine [Mass/Vol] 1.04 mg/dL 0.55-1.02 [facility] Comment on above: The validity of the calculated GFR & GFRAA in patients over 70 years has not been determined. Clinical correlation is essential. Serum or plasma low density lipoprotein (LDL) cholesterol measurement (mass/volume)Ordered By: Connor Anderson on 06-22-2023 Cholesterol in LDL [Mass/Vol] 117 mg/dL 0-130 [facility] Serum or plasma urea nitroge n measurement (mass/volume)Ordered By: Connor Anderson on 06-22-2023 Urea nitrogen [Mass/Vol] 13 mg/dL 7-18 [facility] Thin prep Papanicolaou smear with manual screeningOrdered By: Connor Anderson on 06-22-2023 Thin prep Papanicolaou smear with manual screening 4 - [facility] Laboratory - Chemistry and C hemistry - challengeOrdered By: Dr. Anderson on 12-18-2022 Free T4 [Mass/Vol] 1.13 ng/dL 0.76-1.46 [facility] No Panel InformationOrdered By: Dr. Anderson on 12-18-2022 Thyroid Stimulating Hormone (TSH) 2.14 uIU/mL 0.358-3.74 [facility] Absolute lymphocyte countOrd ered By: Thais Lobo on 09-18-2022 Lymphocytes Auto (Unsp spec) [#/Vol] 1.43 10*3/uL 0.83-4.51 [facility] Basophil percentageOrdered B y: Thais Lobo on 09-18-2022 Basophils/100 WBC (Bld) 1.5 % 0-[address] [facility] Bilirubin [Mass/Vol] 0.40 mg/dL 0.20-1.00 [facility] Comment on above: For patients on eltr ombopag therapy, use of Dimension [place] TBIL is not recommended. Chloride [Moles/Vol] 109 mmol/L 98-107 [facility] Cholesterol [Mass/Vol] 179 mg/dL <200 [facility] Comment on above: <200 mg/dL Desirable 200-240 mg/dL Borderline >240 mg/dL High Risk Eosinophils/100 WBC (Bld) 3.4 % 0-5 [facility] Glucose [Mass/Vol] 107 mg/dL 74-106 [facility] Comment on above: Fasting Glucose resu lt from 100 to 125 mg/dL suggests IMPAIRED HOMEOSTASIS per A.D.A. criteria. Neutrophils (Bld) [#/Vol] 2.7 10*3/uL 2.0-7.7 [facility] Neutrophils/100 WBC (Bld) 57.7 % 47-70 [facility] Potassium [Moles/Vol] 4.3 mmol/L 3.5-5.1 [facility] Protein [Mass/Vol] 7.3 g/dL 6.4-8.2 [facility] Sodium [Moles/Vol] 140 mmol/L 136-145 [facility] Triglyceride [Mass/Vol] 55 mg/dL <199 [facility] Comment on above: The drugs N-Acetylcy steine and Metamizole may falsely depress this assay.Serum Triglycerides Reference Interval Normal <150 mg/dL Borderline high 150 - 199 mg/dL High 200 - 499 mg/dL Very High > or = 500 mg/dL WBC (Bld) [#/Vol] 4.7 10*3/uL 4.4-11.0 [facility] Blood erythrocytes count (nu mber/volume)Ordered By: Thais Lobo on 09-18-2022 RBC (Bld) [#/Vol] 3.81 10*6/uL 4.2-5.4 [facility] Blood hemoglobin measurement (mass/volume)Ordered By: Thaissharri Lobo on 09-18-2022 Hemoglobin (Bld) [Mass/Vol] 11.3 g/dL 12.0-15.0 [facility] Blood lymphocytes/100 leukoc ytesOrdered By: [facility] Statbaudilio on 09-18-2022 Lymphocytes/100 WBC (Bld) 30.6 % 19-41 [facility] Blood monocytes/100 leukocyt esOrdered By: Thais Statbaudilio on 09-18-2022 Monocytes/100 WBC (Bld) 6.4 % 0-10 [facility] Blood platelet mean volumeOr dered By: Thais Statbaudilio on 09-18-2022 Platelet mean volume (Bld) [Entitic vol] 12.1 fL 6.2-12.0 [facility] Determination of erythrocyte mean corpuscular volume (MCV)Ordered By: Thais Lobo on 09-18-2022 MCV (RBC) [Entitic vol] 89.8 fL 81-99 [facility] Hematocrit Auto (Bld) [Volum e fraction]Ordered By: Thais Lobo on 09-18-2022 Hematocrit (Bld) [Volume fraction] 34.2 % 37-47 [facility] Laboratory - Chemistry and C hemistry - challengeOrdered By: Thais Statbaudilio on 09-18-2022 ALP [Catalytic activity/Vol] 66 U/L 45-117 [facility] ALT [Catalytic activity/Vol] 39 U/L 13-56 [facility] CO2 [Moles/Vol] 24.0 mmol/L 21.0-32.0 [facility] Free T4 [Mass/Vol] 0.90 ng/dL 0.76-1.46 [facility] Globulin (S) [Mass/Vol] 3.6 g/dL 2.2-4.2 [facility] Urea nitrogen/Creatinine [Mass ratio] 18.8 mg/mg 10-20 [facility] Laboratory - Hematology and Cell countsOrdered By: Thais Lobo on 09-18-2022 Erythrocyte distribution width (RBC) [Entitic vol] 43.6 fL 35.1-43.9 [facility] Erythrocyte distribution width (RBC) [Ratio] 13.3 % 11.6-14.6 [facility] Immature granulocytes/100 WBC (Bld) 0.400 % 0.0-0.9 [facility] Comment on above: IG% - Immature Granu locytes (promyelocytes, myelocytes and metamyelocytes) > 1% indicates that a LEFT SHIFT is Present. MCH (RBC) [Entitic mass] 29.7 pg 27.0-32.0 [facility] Nucleated RBC/100 WBC (Bld) [Ratio] 0 % 0-5 [facility] MCHC Auto (RBC) [Mass/Vol]Or dered By: Thais Lobo on 09-18-2022 MCHC (RBC) [Mass/Vol] 33.0 g/dL 32-36 [facility] No Panel InformationOrdered By: Thais Lobo on 09-18-2022 Estimated GFR (MDRD) Amer 75 mL/min >60 [facility] Comment on above: GFR Calc Estimated GFR (MDRD) Non-Af Amer 62 mL/min >60 [facility] Comment on above: Non- GFR Calc Free Triiodothyronine (T3) pg/dL 2.7 pg/mL 2.18-3.98 [facility] Thyroid Stimulating Hormone (TSH) 4.20 uIU/mL 0.358-3.74 [facility] Platelets bldOrdered By: Josiah Lobo on 09-18-2022 Platelets (Bld) [#/Vol] 176 10*3/uL 150-450 [facility] Serum or plasma albumin tripp urement (mass/volume)Ordered By: Thais Lobo on 09-18-2022 Albumin [Mass/Vol] 3.7 g/dL 3.2-5.0 [facility] Serum or plasma albumin/glob ulin mass ratioOrdered By: Thais Lobo on 09-18-2022 Albumin/Globulin [Mass ratio] 1.0 {ratio} 0.9-2.4 [facility] Serum or plasma calcium tripp urement (mass/volume)Ordered By: Thais Lobo on 09-18-2022 Calcium [Mass/Vol] 8.5 mg/dL 8.5-10.1 [facility] Serum or plasma cholesterol in HDL measurement (mass/volume)Ordered By: Thais Lobo on 09-18-2022 Cholesterol in HDL [Mass/Vol] 83 mg/dL >40 [facility] Comment on above: The drugs N-Acetylcy steine and Metamizole may falsely depress this assay. Reference Range HDL <40 mg/dL Low HDL Cholesterol HDL >or= 60 mg/dL High HDL Cholesterol Serum or plasma cholesterol in VLDL measurement (mass/volume)Ordered By: Thais Lobo on 09-18-2022 Cholesterol in VLDL [Mass/Vol] 11 mg/dL 5-40 [facility] Serum or plasma creatinine m easurement (mass/volume)Ordered By: Thais Lobo on 09-18-2022 Creatinine [Mass/Vol] 0.96 mg/dL 0.55-1.02 [facility] Comment on above: The validity of the calculated GFR & GFRAA in patients over 70 years has not been determined. Clinical correlation is essential. Serum or plasma low density lipoprotein (LDL) cholesterol measurement (mass/volume)Ordered By: Thais Lobo on 09-18-2022 Cholesterol in LDL [Mass/Vol] 85 mg/dL 0-130 [facility] Serum or plasma urea nitroge n measurement (mass/volume)Ordered By: Thais Lobo on 09-18-2022 Urea nitrogen [Mass/Vol] 18 mg/dL 7-18 [facility] Thin prep Papanicolaou smear with manual screeningOrdered By: Thais Livbaudilio on 09-18-2022 Thin prep Papanicolaou smear with manual screening 20 U/L 15-37 [facility] Thin prep Papanicolaou smear with manual screening 7 5-15 [facility] Absolute lymphocyte counton 08-05-2022 Lymphocytes Auto (Unsp spec) [#/Vol] 1.76 10*3/uL 0.83-4.51 [facility] Work Phone: Basophil percentageon 2021 Basophils/100 WBC (Bld) 0.9 % 0-1 [facility] Work Phone: [phone] Bilirubin [Mass/Vol] 0.40 mg/dL 0.20-1.00 [facility] Work Phone: Comment on above: For patients on eltr ombopag therapy, use of Dimension [place] TBIL is not recommended. Chloride [Moles/Vol] 108 mmol/L 98-107 [facility] Work Phone: [phone] Eosinophils/100 WBC (Bld) 3.6 % 0-5 [facility] Work Phone: [phone] Glucose [Mass/Vol] 110 mg/dL 74-106 [facility] Work Phone: [phone] Comment on above: Fasting Glucose resu lt from 100 to 125 mg/dL suggests IMPAIRED HOMEOSTASIS per A.D.A. criteria. Neutrophils (Bld) [#/Vol] 3.1 10*3/uL 2.0-7.7 [facility] Work Phone: [phone] Neutrophils/100 WBC (Bld) 56.9 % 47-70 [facility] Work Phone: [phone] Potassium [Moles/Vol] 4.1 mmol/L 3.5-5.1 [facility] Work Phone: [phone] Protein [Mass/Vol] 7.5 g/dL 6.4-8.2 [facility] Work Phone: Sodium [Moles/Vol] 139 mmol/L 136-145 [facility] Work Phone: WBC (Bld) [#/Vol] 5.5 10*3/uL 4.4-11.0 [facility] Work Phone: Blood erythrocytes count (nu mber/volume)on 08-05-2022 RBC (Bld) [#/Vol] 4.58 10*6/uL 4.2-5.4 [facility]: Blood hemoglobin measurement (mass/volume)on 08-05-2022 Hemoglobin (Bld) [Mass/Vol] 13.1 g/dL 12.0-15.0 [facility] Work Phone: Blood lymphocytes/100 leukoc yteson 08-05-2022 Lymphocytes/100 WBC (Bld) 31.8 % 19-41 [facility] Work Phone: Blood monocytes/100 leukocyt eson 08-05-2022 Monocytes/100 WBC (Bld) 6.3 % 0-10 [facility] Work Phone: Blood platelet mean volumeon 08-05-2022 Platelet mean volume (Bld) [Entitic vol] 12.3 fL 6.2-12.0 [facility] Work Phone: Determination of erythrocyte mean corpuscular volume (MCV)on 08-05-2022 MCV (RBC) [Entitic vol] 89.7 fL 81-99 [facility] Work Phone: Hematocrit Auto (Bld) [Volum e fraction]on 08-05-2022 Hematocrit (Bld) [Volume fraction] 41.1 % 37-47 [facility] Work Phone: Laboratory - Chemistry and C hemistry - challengeon 08-05-2022 ALP [Catalytic activity/Vol] 66 U/L 45-117 [facility] Work Phone: ALT [Catalytic activity/Vol] 47 U/L 13-56 [facility] Work Phone: CO2 [Moles/Vol] 23.0 mmol/L 21.0-32.0 [facility] Work Phone: Free T4 [Mass/Vol] 0.98 ng/dL 0.76-1.46 [facility]: Globulin (S) [Mass/Vol] 3.9 g/dL 2.2-4.2 [facility] Work Phone: Urea nitrogen/Creatinine [Mass ratio] 13.8 mg/mg 10-20 [facility] Work Phone: Laboratory - Hematology and Cell countson 08-05-2022 Erythrocyte distribution width (RBC) [Entitic vol] 42.5 fL 35.1-43.9 [facility] Work Phone: Erythrocyte distribution width (RBC) [Ratio] 13.1 % 11.6-14.6 [facility] Work Phone: Immature granulocytes/100 WBC (Bld) 0.500 % 0.0-0.9 [facility] Work Phone: Comment on above: IG% - Immature Granu locytes (promyelocytes, myelocytes and metamyelocytes) > 1% indicates that a LEFT SHIFT is Present. MCH (RBC) [Entitic mass] 28.6 pg 27.0-32.0 [facility] Work Phone: Nucleated RBC/100 WBC (Bld) [Ratio] 0 % 0-5 [facility] Work Phone: MCHC Auto (RBC) [Mass/Vol]on 08-05-2022 MCHC (RBC) [Mass/Vol] 31.9 g/dL 32-36 [facility] Work Phone: No Panel Informationon 08-05 Estimated GFR (MDRD) Amer 76 mL/min >60 [facility] Work Phone: Comment on above: GFR Calc Estimated GFR (MDRD) Non-Af Amer 63 mL/min >60 [facility] Work Phone: Comment on above: Non- GFR Calc Thyroid Stimulating Hormone (TSH) 4.04 uIU/mL 0.358-3.74 [facility] Work Phone: Platelets bldon 08-05-2022 Platelets (Bld) [#/Vol] 181 10*3/uL 150-450 [facility] Work Phone: Serum or plasma albumin tripp urement (mass/volume)on 08-05-2022 Albumin [Mass/Vol] 3.6 g/dL 3.2-5.0 [facility] Work Phone: Serum or plasma albumin/glob ulin mass ratioon 08-05-2022 Albumin/Globulin [Mass ratio] 0.9 {ratio} 0.9-2.4 [facility] Work Phone: Serum or plasma calcium tripp urement (mass/volume)on 08-05-2022 Calcium [Mass/Vol] 8.9 mg/dL 8.5-10.1 [facility] Work Phone: Serum or plasma creatinine m easurement (mass/volume)on 08-05-2022 Creatinine [Mass/Vol] 0.94 mg/dL 0.55-1.02 [facility] Work Phone: Comment on above: The validity of the calculated GFR & GFRAA in patients over 70 years has not been determined. Clinical correlation is essential. Serum or plasma urea nitroge n measurement (mass/volume)on 08-05-2022 Urea nitrogen [Mass/Vol] 13 mg/dL 7-18 [facility] Work Phone: Thin prep Papanicolaou smear with manual screeningon 08-05-2022 Thin prep Papanicolaou smear with manual screening 24 U/L 15-37 [facility] Work Phone: Thin prep Papanicolaou smear with manual screening 8 5-15 [facility] Work Phone: Basophil percentageon 2021 Chloride [Moles/Vol] 107 mmol/L 98-107 [facility] Work Phone: Cholesterol [Mass/Vol] 215 mg/dL <200 [facility] Work Phone: Comment on above: <200 mg/dL Desirable 200-240 mg/dL Borderline >240 mg/dL High Risk Glucose [Mass/Vol] 92 mg/dL 74-106 [facility] Work Phone: Potassium [Moles/Vol] 4.5 mmol/L 3.5-5.1 [facility] Work Phone: Sodium [Moles/Vol] 140 mmol/L 136-145 [facility] Work Phone: Triglyceride [Mass/Vol] 62 mg/dL <199 [facility] Work Phone: Comment on above: The drugs N-Acetylcy steine and Metamizole may falsely depress this assay.Serum Triglycerides Reference Interval Normal <150 mg/dL Borderline high 150 - 199 mg/dL High 200 - 499 mg/dL Very High > or = 500 mg/dL Laboratory - Chemistry and C hemistry - challengeon 04-21-2022 CO2 [Moles/Vol] 28.0 mmol/L 21.0-32.0 [facility] Work Phone: Urea nitrogen/Creatinine [Mass ratio] 16.0 mg/mg 10-20 [facility] Work Phone: No Panel Informationon 04-21 Estimated GFR (MDRD) Amer 83 mL/min >60 [facility] Work Phone: Comment on above: GFR Calc Estimated GFR (MDRD) Non-Af Amer 68 mL/min >60 [facility] Work Phone: Comment on above: Non- GFR Calc Thyroid Stimulating Hormone (TSH) 3.32 uIU/mL 0.358-3.74 [facility] Work Phone: Vitamin D 25-Hydroxy 50.6 ng/mL [facility] Work Phone: [phone] Comment on above: Vitamin D 25(OH) Sta tus Range Deficiency <20 ng/mL (50nmol/L) Insufficiency 20 - 30 ng/mL (50 - 75 nmol/L) Sufficiency 30 - 100 ng/mL (75 - 250 nmol/L) Toxicity >100 ng/mL (>250 nmol/L) Serum or plasma calcium tripp urement (mass/volume)on 04-21-2022 Calcium [Mass/Vol] 9.1 mg/dL 8.5-10.1 [facility] Work Phone: Serum or plasma cholesterol in HDL measurement (mass/volume)on 04-21-2022 Cholesterol in HDL [Mass/Vol] 77 mg/dL >40 [facility] Work Phone: Comment on above: The drugs N-Acetylcy steine and Metamizole may falsely depress this assay. Reference Range HDL <40 mg/dL Low HDL Cholesterol HDL >or= 60 mg/dL High HDL Cholesterol Serum or plasma cholesterol in VLDL measurement (mass/volume)on 04-21-2022 Cholesterol in VLDL [Mass/Vol] 12 mg/dL 5-40 [facility] Work Phone: Serum or plasma creatinine m easurement (mass/volume)on 04-21-2022 Creatinine [Mass/Vol] 0.88 mg/dL 0.55-1.02 [facility] Work Phone: Comment on above: The validity of the calculated GFR & GFRAA in patients over 70 years has not been determined. Clinical correlation is essential. Serum or plasma low density lipoprotein (LDL) cholesterol measurement (mass/volume)on 04-21-2022 Cholesterol in LDL [Mass/Vol] 126 mg/dL 0-130 [facility] Work Phone: Serum or plasma urea nitroge n measurement (mass/volume)on 04-21-2022 Urea nitrogen [Mass/Vol] 14 mg/dL 7-18 [facility] Work Phone: Thin prep Papanicolaou smear with manual screeningon 04-21-2022 Thin prep Papanicolaou smear with manual screening 5 5-15 [facility] Work Phone: Vital Signs Date Time Vital Sign Value Performing Clinician Valentina patel 05-03-2025 08:13-0400 Body height 165.[address] David Anderson MD Work Phone: [facility] 05-03-2025 08:13-0400 Body mass index (BMI) [Ratio] 31.1 kg/m2 Dr. David Anderson MD Work Phone: [facility] 05-03-2025 08:13-0400 Body weight 84.[address] David Anderson MD Work Phone: [facility] 05-03-2025 08:13-0400 Diastolic blood pressure 86 mm[Hg] Dr. David Anderson MD Work Phone: [facility] 05-03-2025 08:13-0400 Heart rate 69 /min Dr. David Anderson MD Work Phone: [facility] 05-03-2025 08:13-0400 Respiratory rate 16 /min Dr. David Anderson MD Work Phone: [facility] 05-03-2025 08:13-0400 Systolic blood pressure 149 mm[Hg] Dr. David Anderson MD Work Phone: [facility] 04-30-2025 14:37-0400 Body height 166.4 cm Lashonda Beltrán MD Work Phone: [facility] 04-30-2025 14:37-0400 Body mass index (BMI) [Ratio] 29.99 kg/m2 Lashonda Beltrán MD Work Phone: [facility] 04-30-2025 14:37-0400 Body weight 83.01 kg Lashonda Beltrán MD Work Phone: [facility] 04-30-2025 14:37-0400 Diastolic blood pressure 79 mm[Hg] Lashonda Beltrán MD Work Phone: [facility] 04-30-2025 14:37-0400 Heart rate 70 /min Lashonda Beltrán MD Work Phone: [facility] 04-30-2025 14:37-0400 Respiratory rate 18 /min Lashonda Beltrán MD Work Phone: [facility] 04-30-2025 14:37-0400 SaO2% (BldA) [Mass fraction] 98 % Lashonda Beltrán MD Work Phone: [facility] 04-30-2025 14:37-0400 Systolic blood pressure 143 mm[Hg] Lashonda Beltrán MD Work Phone: [facility] 01-10-2025 15:06-0500 Body height 166.4 cm Lashonda Beltrán MD Work Phone: [facility] 01-10-2025 15:06-0500 Body mass index (BMI) [Ratio] 28.51 kg/m2 Lashonda Beltrán MD Work Phone: [facility] 01-10-2025 15:06-0500 Body weight 78.93 kg Lashonda Beltrán MD Work Phone: [facility] 01-10-2025 15:06-0500 Diastolic blood pressure 90 mm[Hg] Lashonda Beltrán MD Work Phone: [facility] 01-10-2025 15:06-0500 Heart rate 70 /min Lashonda Beltrán MD Work Phone: [facility] 01-10-2025 15:06-0500 Respiratory rate 18 /min Lashonda Beltrán MD Work Phone: [facility] 01-10-2025 15:06-0500 SaO2% (BldA) [Mass fraction] 98 % Lashonda Beltrán MD Work Phone: [facility] 01-10-2025 15:06-0500 Systolic blood pressure 166 mm[Hg] Lashonda Beltrán MD Work Phone: [phone] [place] [address] 12-15-2024 11:22-0500 Body temperature 98.2 [degF] Lashonda Beltrán MD Work Phone: [facility] 12-15-2024 11:22-0500 Diastolic blood pressure 75 mm[Hg] Lashonda Beltrán MD Work Phone: [facility] 12-15-2024 11:22-0500 Heart rate 70 /min Lashonda Beltrán MD Work Phone: [facility] 12-15-2024 11:22-0500 Respiratory rate 16 /min Lashonda Beltrán MD Work Phone: [facility] 12-15-2024 11:22-0500 SaO2% (BldA) [Mass fraction] 98 % Lashonda Beltrán MD Work Phone: [facility] 12-15-2024 11:22-0500 Systolic blood pressure 146 mm[Hg] Lashonda Beltrán MD Work Phone: [facility] 12-14-2024 11:24-0500 Body height 165.1 cm Lashonda Beltrán MD Work Phone: [facility] 12-14-2024 11:24-0500 Body mass index (BMI) [Ratio] 28.79 kg/m2 Lashonda Beltrán MD Work Phone: [facility] 12-14-2024 11:24-0500 Body weight 78.47 kg Lashonda Beltrán MD Work Phone: [facility] 12-13-2024 17:05-0500 Diastolic blood pressure 80 mm[Hg] Dr. David Anderson MD Work Phone: [facility] 12-13-2024 17:05-0500 Systolic blood pressure 120 mm[Hg] Dr. David Anderson MD Work Phone: [facility] 12-13-2024 08:36-0500 Body height 165.[address] David Anderson MD Work Phone: [facility] 12-13-2024 08:36-0500 Body mass index (BMI) [Ratio] 28.8 kg/m2 Dr. David Anderson MD Work Phone: [facility] 12-13-2024 08:36-0500 Body weight 78.[address] David Anderson MD Work Phone: [facility] 12-13-2024 08:36-0500 Heart rate 78 /min Dr. David Anderson MD Work Phone: [facility] 12-13-2024 08:36-0500 Respiratory rate 18 /min Dr. David Anderson MD Work Phone: [facility] 12-13-2024 08:36-0500 SaO2% (BldA) [Mass fraction] 96 % Dr. David Anderson MD Work Phone: [facility] 11-15-2024 14:46-0500 Body height 165.1 cm Lashonda Beltrán MD Work Phone: [facility] 11-15-2024 14:46-0500 Body mass index (BMI) [Ratio] 28.29 kg/m2 Lashonda Beltrán MD Work Phone: [facility] 11-15-2024 14:46-0500 Body weight 77.11 kg Lashonda Beltrán MD Work Phone: [facility] 11-15-2024 14:46-0500 Diastolic blood pressure 74 mm[Hg] Lashonda Beltrán MD Work Phone: [facility] 11-15-2024 14:46-0500 Heart rate 91 /min Lashonda Beltrán MD Work Phone: [facility] 11-15-2024 14:46-0500 Respiratory rate 18 /min Lashonda Beltrán MD Work Phone: [facility] 11-15-2024 14:46-0500 SaO2% (BldA) [Mass fraction] 98 % Lashonda Beltrán MD Work Phone: [facility] 11-15-2024 14:46-0500 Systolic blood pressure 119 mm[Hg] Lashonda Beltrán MD Work Phone: [facility] 10-16-2024 15:00-0500 Heart rate 93 /min Lashonda Beltrán MD Work Phone: [facility] 10-16-2024 15:00-0500 Respiratory rate 21 /min Lashonda Beltrán MD Work Phone: [facility] 10-16-2024 15:00-0500 SaO2% (BldA) [Mass fraction] 97 % Lashonda Beltrán MD Work Phone: [facility] 10-16-2024 12:16-0500 Body temperature 96.8 [degF] Lashonda Beltrán MD Work Phone: [facility] 10-16-2024 05:57-0500 Body mass index (BMI) [Ratio] 30.56 kg/m2 Lashonda Beltrán MD Work Phone: [facility] 10-16-2024 05:57-0500 Body weight 83.3 kg Lashonda Beltrán MD Work Phone: [facility] 10-13-2024 20:00-0500 Body height 165.1 cm Lashonda Beltrán MD Work Phone: [facility] 10-13-2024 17:17-0500 Diastolic blood pressure 78 mm[Hg] Lashonda Beltrán MD Work Phone: [facility] 10-13-2024 17:17-0500 Systolic blood pressure 125 mm[Hg] Lashonda Beltrán MD Work Phone: [facility] 09-13-2024 12:56-0500 Body height 166.4 cm Lashonda Beltrán MD Work Phone: [facility] 09-13-2024 12:56-0500 Body mass index (BMI) [Ratio] 28.35 kg/m2 Lashonda Beltrán MD Work Phone: [facility] 09-13-2024 12:56-0500 Body weight 78.47 kg Lashonda Beltrán MD Work Phone: [facility] 09-13-2024 12:56-0500 Diastolic blood pressure 83 mm[Hg] Lashonda Beltrán MD Work Phone: [facility] 09-13-2024 12:56-0500 Heart rate 73 /min Lashonda Beltrán MD Work Phone: [facility] 09-13-2024 12:56-0500 Systolic blood pressure 144 mm[Hg] Lashonda Beltrán MD Work Phone: [facility] 02-02-2024 14:39-0400 Body height 166.[address] David Anderson Work Phone: [facility] 02-02-2024 14:39-0400 Body mass index (BMI) [Ratio] 26.6 kg/m2 Dr. David Anderson Work Phone: [facility] 02-02-2024 14:39-0400 Body weight 73.[address] David Anderson Work Phone: [facility] 02-02-2024 14:39-0400 Diastolic blood pressure 58 mm[Hg] Dr. David Anderson Work Phone: [facility] 02-02-2024 14:39-0400 Respiratory rate 16 /min Dr. David Anderson Work Phone: [facility] 02-02-2024 14:39-0400 Systolic blood pressure 132 mm[Hg] Dr. David Anderson Work Phone: [facility] 06-28-2023 09:53-0400 Body temperature 98.4 [degF] Dr. Connor Anderson Work Phone: [facility] 06-28-2023 09:53-0400 Diastolic blood pressure 59 mm[Hg] Dr. Connor Anderson Work Phone: [facility] 06-28-2023 09:53-0400 Heart rate 65 /min Dr. Connor Anderson Work Phone: [facility] 06-28-2023 09:53-0400 Respiratory rate 16 /min Dr. Connor Anderson Work Phone: [facility] 06-28-2023 09:53-0400 SaO2% (BldA) [Mass fraction] 96 % Dr. Connor Anderson Work Phone: [facility] 06-28-2023 09:53-0400 Systolic blood pressure 127 mm[Hg] Dr. Connor Anderson Work Phone: [facility] 06-28-2023 06:30-0400 Body height 166.[address] Connor Anderson Work Phone: [facility] 06-28-2023 06:30-0400 Body mass index (BMI) [Ratio] 27 kg/m2 Dr. Connor Anderson Work Phone: [facility] 06-28-2023 06:30-0400 Body weight 74.[address] Connor Anderson Work Phone: [facility] Encounters Encounter Date Encounter Type Care Provider Facility Start: 05-03-2025 End: 05-03-2025 Patient encounter procedure Joy BOONE -[facility] Work Phone: Start: 05-03-2025 End: 05-03-[address] David Anderson MD Work Phone: [facility] Work Phone: Start: 04-30-2025 End: 04-30-2025 Office outpatient visit 25 minutes Lashonda Beltrán MD Work Phone: [facility] Comment on above: Persistent atrial fi brillation (Multi) (Primary Dx); On amiodarone therapy Start: 04-30-2025 End: 04-30-2025 Subsequent hospital visit by physician Joe Beltrán [facility] Comment on above: Atrial fibrillation, unspecified type (Multi); Presence of cardiac pacemaker Start: 04-30-2025 End: 04-30-2025 ambulatory [facility] Start: 01-22-2025 Non-patient / Non-visit Dr. Leonid villa DO -[facility] Start: 01-22-2025 End: 01-22-[address] David Anderson MD Work Phone: [facility] Work Phone: Start: 01-22-2025 End: 01-22-[address] David Anderson MD Work Phone: -Pulmonary Services/Neurology Work Phone: Start: 01-22-2025 End: 01-22-2025 ambulatory [facility] Facility:[facility] Start: 01-12-2025 End: 01-12-[address] David Anderson MD Work Phone: [facility] Work Phone: Start: 01-12-2025 End: 01-12-[address] David Anderson MD Work Phone: -Laboratory Work Phone: Start: 01-12-2025 End: 01-12-2025 ambulatory [facility] Facility:[facility] Start: 01-10-2025 End: 01-10-2025 Subsequent hospital visit by physician Joe Device Bedside [facility] Comment on above: Atrial fibrillation, unspecified type (Multi); Presence of cardiac pacemaker Start: 01-10-2025 End: 01-10-2025 ambulatory [facility] Start: 01-10-2025 End: 01-10-2025 Office outpatient visit 25 minutes Lashonda Beltrán MD Work Phone: [facility] Comment on above: On amiodarone therap y (Primary Dx); Atrial fibrillation, unspecified type (Multi) Start: 12-24-2024 Encounter for preprocedural laboratory examination LUBA [facility] Start: 12-22-2024 End: 12-22-2024 Subsequent hospital visit by physician Esha [facility] Comment on above: Atrial fibrillation/ flutter (Multi) Start: 12-22-2024 End: 12-22-2024 ambulatory LASHONDA Moore [facility] Start: 12-14-2024 End: 12-18-2024 ambulatory HELEN Reed [facility] Start: 12-14-2024 End: 12-14-2024 Subsequent hospital visit by physician Tomas Everett [facility] Comment on above: Arrived Start: 12-14-2024 End: 12-15-2024 ambulatory LASHONDA Moore [facility] Start: 12-14-2024 End: 12-15-2024 Subsequent hospital visit by physician Lashonda Beltrán MD Work Phone: [facility] Bld[facility] A 4 Comment on above: Longstanding persist ent atrial fibrillation (Multi) (Primary Dx); Conduction disorder, unspecified; Status post placement of cardiac pacemaker Start: 12-13-2024 End: 12-13-2024 Patient encounter procedure Joy Baltazar [place] -[facility] Work Phone: Start: 12-13-2024 End: 12-13-2024 ambulatory David Anderson Facility:[facility] Start: 12-06-2024 End: 12-06-[address] David Anderson MD Work Phone: -Laboratory Work Phone: Start: 12-06-2024 End: 12-06-2024 ambulatory LUBA UTDIANE Facility:[facility] Start: 11-15-2024 End: 11-15-2024 Office outpatient visit 25 minutes Lashonda Beltrán MD Work Phone: [facility] Comment on above: Longstanding persist ent atrial fibrillation (Multi) (Primary Dx) Start: 11-15-2024 End: 11-15-2024 ambulatory LASHONDA Moore [facility] Start: 10-29-2024 Encounter for other preprocedural examination [facility] Start: 10-13-2024 End: 10-16-2024 Evaluation and management of inpatient Lashonda Beltrán MD Work Phone: [facility] Comment on above: Unspecified atrial f ibrillation (Multi) (Primary Dx); Longstanding persistent atrial fibrillation (Multi); Heart block; Primary hypertension; Other acute pericarditis ([facility]) Start: 09-30-2024 End: 09-30-[address] David Anderson MD Work Phone: -Laboratory Work Phone: Start: 09-30-2024 End: 09-30-2024 ambulatory [facility] Facility:[facility] Start: 09-14-2024 End: 09-14-2024 ambulatory David Anderson Facility:[facility] Start: 09-13-2024 End: 09-13-2024 Office outpatient new 45 minutes Lashonda Beltrán MD Work Phone: [facility] Comment on above: Atrial fibrillation, unspecified type (Multi) (Primary Dx); Preop testing Start: 09-13-2024 End: 09-13-2024 Patient encounter status Lashonda Beltrán MD Work Phone: [facility] Work Phone: Start: 09-13-2024 End: 09-13-2024 ambulatory LASHONDA Moore [facility] Start: 09-13-2024 End: 09-13-2024 Encounter for other preprocedural examination LASHONDA Moore [facility] Start: 08-16-2024 ambulatory David Anderson Faci lity:[facility] Start: 08-16-2024 End: 08-16-2024 ambulatory David Anderson Facility:[facility] Start: 08-11-2024 End: 08-11-2024 ambulatory David Anderson Facility:[facility] Start: 07-20-2024 End: 07-20-2024 ambulatory David Anderson Facility:[facility] Start: 07-13-2024 ambulatory Chambers Connor Facility:[facility] Start: 07-13-2024 End: 07-13-2024 ambulatory Storm Connor [facility] [facility] Start: 07-12-2024 ambulatory Storm Connor Facility:[facility] Start: 06-29-2024 End: 06-29-2024 ambulatory David Anderson Facility:[facility] Start: 06-09-2024 End: 06-09-2024 ambulatory Chambers Connor Facility:[facility] Start: 02-09-[address] Broderick Anderson Work Phone: [facility]Cardiovascul[facility] Services Work Phone: Start: 02-08-2024 Non-patient / Non-visit Dr. Cesar Anderson Work Phone: [facility] Start: 02-08-2024 End: 02-08-[address] David Anderson Work Phone: [facility] Work Phone: Start: 02-08-2024 End: 02-08-[address] David Anderson Work Phone: [facility] Work Phone: Start: 02-02-2024 End: 02-02-[address] David Anderson Work Phone: [facility] Work Phone: Start: 01-14-2024 End: 01-14-2024 ambulatory [facility] Work Phone: Start: 01-14-2024 End: 01-14-2024 Patient encounter procedure [facility] Start: 06-28-2023 End: 06-28-2023 Admission to same day surgery center Dr. Connor Anderson Work Phone: [facility] Start: 06-28-2023 End: 06-28-[address] Connor Anderson Work Phone: [facility] Work Phone: Start: 05-05-2023 End: 05-05-[address] Connor Anderson Work Phone: [facility] Work Phone: Start: 05-05-2023 End: 05-05-[address] Connor Anderson Work Phone: [facility]-Outpatient Breast Imaging Work Phone: Start: 04-20-2023 End: 04-20-[address] Cononr Anderson Work Phone: [facility] Work Phone: Start: 04-20-2023 End: 04-20-[address] Connor Anderson Work Phone: [facility] Start: 03-04-2023 End: 03-04-[address] Connor Anderson Work Phone: [facility] Start: 12-18-2022 End: 12-18-2022 ambulatory [facility] Work Phone: Start: 12-18-2022 End: 12-18-2022 Patient encounter procedure [facility] Start: 09-18-2022 End: 09-18-2022 ambulatory [facility] Work Phone: Start: 09-18-2022 End: 09-18-2022 Patient encounter procedure [facility] Start: 08-05-2022 End: 08-05-2022 ambulatory [facility] Work Phone: Start: 08-05-2022 End: 08-05-2022 Patient encounter procedure [facility] Start: 04-30-2022 End: 04-30-2022 Patient encounter procedure [facility]-Outpatient Bone Densitometry Start: 04-21-2022 End: 04-21-2022 Patient encounter procedure [facility] Procedures Date Procedure Procedure Detail Performing Clinician Start: 12-15-2024 CARDIAC DEVICE CHECK CHECK - INPATIENT Helen Jennifer Angel MANAGER [employer] Work Phone: Start: 12-15-2024 Radiologic exam chest 2 views Helen Ortiz MANAGER [employer] Work Phone: Start: 12-15-2024 Basic metabolic pane l calcium total Helen Jennifer Angel MANAGER [employer] Work Phone: Start: 12-14-2024 Ecg routine ecg w/le ast 12 lds trcg only w/o i&r Helen Jennifer Natemireillecollins [facility] Work Phone: Start: 12-14-2024 Electrophysiology study Lashonda Beltrán MD Work Phone: Start: 10-16-2024 Ecg routine ecg w/le ast 12 lds trcg only w/o i&r Bert Kay MD Work Phone: Start: 10-16-2024 Ecg routine ecg w/le ast 12 lds trcg only w/o i&r Bert Kay MD Work Phone: Start: 10-16-2024 Radiologic exam ches t single view Rainer Tay MD Work Phone: Start: 10-16-2024 Renal function panel Hair Kay MD Work Phone: Start: 10-15-2024 Ecg routine ecg w/le ast 12 lds trcg only w/o i&r Bert Kay MD Work Phone: Start: 10-15-2024 End: 10-15-2024 Renal function panel Rogelio Morales MD Work Phone: Start: 10-15-2024 Echo transthorc r-t 2d w/wo m-mode rec f-up/lmtd Rogelio Morales MD Work Phone: Start: 10-14-2024 Radiologic exam ches t single view Bert Kay MD Work Phone: Start: 10-14-2024 C-reactive protein Endy Morales MD Work Phone: Start: 10-14-2024 End: 10-14-2024 Renal function panel Bert Kay MD Work Phone: Start: 10-14-2024 Ecg routine ecg w/le ast 12 lds trcg only w/o i&r Adria Luciano MD Work Phone: Start: 10-13-2024 End: 10-13-2024 Comprehensive metabolic panel Bert Kay MD Work Phone: Start: 10-13-2024 PULSE OXIMETRY, CONTINUOUS Bert Kay MD Work Phone: Start: 10-13-2024 End: 10-13-2024 Ecg routine ecg w/least 12 lds trcg only w/o i&r Adria Luciano MD Work Phone: Start: 10-13-2024 Cardiac catheterization study Lashonda Beltrán MD Work Phone: Start: 10-13-2024 Electrophysiology study Lashonda Beltrán MD Work Phone: Start: 10-13-2024 Thyrotropin [Units/v olume] in Serum or Plasma Lashonda Beltrán MD Work Phone: Start: 06-28-2023 Functional Endoscopo ic Sinus Surgery (Right) Dr. Connor Anderson Work Phone: Start: 05-05-2023 Screening mammography Xin Anderson Work Phone: Start: 04-20-[address] Broderick Anderson Work Phone: Start: 03-04-2023 Radiography of nasal sinuses Dr. Connor Anderson Work Phone: Start: 04-30-2022 Dual energy X-ray absorptiometry Start: 04-30-2022 Screening mammography Plan of Treatment Date Care Activity Detail Author Start: 2030 RSV High Risk: (Elde rly (60+) or Population) (1 - 1-dose 75+ series) RSV High Risk: (Elderly (60+) or Population) (1 - 1-dose 75+ series) [facility] Start: 12-15-2025 Diabetes mellitus screening Diabetes Screening [facility] Start: 10-29-2025 End: 10-29-20[address] [facility] Start: 10-13-2025 Diabetes mellitus screening Diabetes Screening [facility] Start: 10-13-2025 Thyroid stimulating hormone measurement TSH Level [facility] Start: 07-09-2025 Influenza vaccination Influenz a Vaccine (Season Ended) [facility] Start: 04-30-2025 End: 04-30-2025 Patient encounter procedure [facility] Start: 01-23-2025 End: 01-23-2025 Patient encounter procedure 01/23/2025 8:00 AM EDT Appointment [facility] [address] [place] [address] [facility] Start: 01-10-2025 End: 01-10-2025 Patient encounter procedure 01/10/2025 3:00 PM EST Office Visit [facility] [address] [place] [address] Lashonda Beltrán [place] [address] [place] [address] [facility] Start: 01-10-2025 End: 01-10-2026 Complete Pulmonary Function Test (Spirometry/DLCO/Lung Volumes) Complete Pulmonary Function Test (Spirometry/DLCO/Lung Volumes) PFT Routine On amiodarone therapy Expected: 01/10/2025 (Approximate), Expires: 01/10/2026 [facility] Service Area Work Phone: Comment on above: Expected: 01/10/2025 (Approximate), Expires: 01/10/2026 Start: 01-10-2025 End: 01-10-2026 Hepatic function 2000 panel - Serum or Plasma Hepatic Function Panel Lab Routine On amiodarone therapy Expected: 01/10/2025 (Approximate), Expires: 01/10/2026 [facility] Work Phone: Comment on above: Expected: 01/10/2025 (Approximate), Expires: 01/10/2026 Start: 01-10-2025 End: 01-10-2026 TSH with reflex to Free T4 if abnormal TSH with reflex to Free T4 if abnormal Lab Routine On amiodarone therapy Expected: 01/10/2025 (Approximate), Expires: 01/10/2026 [facility] Work Phone: Comment on above: Expected: 01/10/2025 (Approximate), Expires: 01/10/2026 Start: 11-28-2024 End: 11-28-2024 Patient encounter procedure 11/28/2024 10:40 AM EST Office Visit [facility] [address] [place] [address] Lashonda Beltrán [place] [address] [place] [address] [facility] Start: 11-21-2024 End: 11-21-2024 Patient encounter procedure 11/21/2024 2:00 PM EST Office Visit [facility] [address] [place] [address] Lashonda Beltrán [place] [address] [place], [place] [id number] [facility] Start: 09-27-2024 End: 03-13-2025 Basic metabolic 2000 panel - Serum or Plasma Basic Metabolic Panel Lab Routine Atrial fibrillation, unspecified type (Multi) Preop testing Expected: 09/27/2024, Expires: 03/13/2025 [facility] Service Area Work Phone: Comment on above: Expected: 09/27/2024 , Expires: 03/13/2025 Start: 09-27-2024 End: 03-13-2025 CBC panel - Blood by Automated count CBC Lab Routine Atrial fibrillation, unspecified type (Multi) Preop testing Expected: 09/27/2024, Expires: 03/13/2025 [facility] Work Phone: Comment on above: Expected: 09/27/2024 , Expires: 03/13/2025 Start: 07-09-2024 COVID-19 Vaccine () COVID-19 Vaccine () [facility] Start: 07-09-2024 Influenza vaccination Influenza Vacc ine (#1) [facility] Start: 06-28-2023 Ambulation without limitation [facility] Start: 06-28-2023 Elevation of head of bed [facility] Start: 06-28-2023 Medical regimen orde rs management [facility] Start: 06-28-2023 Patient discharge [facility] Start: 06-28-2023 Procedure discontinued [facility] Start: 06-28-2023 Taking patient vital signs [facility] Start: 06-28-2023 Vital signs measurements [facility] Start: 06-28-2023 Medication education [facility] Start: 01-25-2023 DTaP/Tdap/Td Vaccine s (3 - Td or Tdap) DTaP/Tdap/Td Vaccines (3 - Td or Tdap) [facility] Start: 04-30-2022 Dual energy X-ray absorptiometry Dexa Bone Density Study [facility] Work Phone: Start: 2020 Pneumococcal Vaccine : 65+ Years (1 of 1 - PCV) Pneumococcal Vaccine: 65+ Years (1 of 1 - PCV) [facility] Start: 2015 RSV High Risk: (Elde rly (60+) or Population) (1 - Risk 60-74 years 1-dose series) RSV High Risk: (Elderly (60+) or Population) (1 - Risk 60-74 years 1-dose series) [facility] Start: 2005 Pneumococcal vaccination Pneum ococcal Vaccine (1 of 1 - PCV) [facility] Start: 1995 Screening for malign ant neoplasm of breast Mammogram [facility] Start: 1973 Hepatitis C screening Hepatitis C Sc reening [facility] Start: 1955 Lipid panel Lipid Panel [facility] Start: 1955 Medicare Annual Well ness Visit Medicare Annual Wellness Visit (AWV) [facility] Start: 1955 Screening for malign ant neoplasm of colon [facility] Start: 1955 Screening for osteoporosis Bone Density Scan [facility] Start: 1955 Thyroid stimulating hormone measurement TSH Level [facility] Start: 1955 Yearly Adult Physical Yearly Adult P hysical [facility] Basic metabolic 2008 panel with ionized calcium - Serum or Plasma [facility] End: 01-10-2025 Cardiac device check - In Clinic [facility] Service Area Work Phone: Comment on above: Once for 1 Occurrenc es starting 01/10/2025 until 01/10/2025 End: 04-30-2025 Cardiac device check - In Clinic [facility] Area Work Phone: Comment on above: Once for 1 Occurrenc es starting 04/30/2025 until 04/30/2025 Cardiac device check - Inpatient Cardiac device check - Inpatient Implantable Cardiac Device Routine Status post placement of cardiac pacemaker 12/15/2024 9:40 AM EST [facility] Work Phone: End: 12-22-2024 Cardiac Device Check - Remote [facility] Area Work Phone: Comment on above: Once for 1 Occurrenc es starting 12/22/2024 until 12/22/2024 End: 10-22-2024 CBC panel - Blood by Automated count CBC Lab Routine Morning draw (Lab) for 1 Weeks starting 10/16/2024 until 10/22/2024, 1 completed [facility] Service Area Work Phone: Comment on above: Morning draw (Lab) f or 1 Weeks starting 10/16/2024 until 10/22/2024, 1 completed End: 12-14-2024 ECG 12 Lead [facility] Work Phone: Comment on above: Once for 1 Occurrenc es starting 12/14/2024 until 12/14/2024 ECG 12 lead (Clinic Performed) ECG 12 lead (Clinic Performed) ECG Routine Atrial fibrillation, unspecified type (Multi) 09/13/2024 1:00 PM [facility] Work Phone: ECG 12 lead (Clinic Performed) ECG 12 lead (Clinic Performed) ECG Routine Longstanding persistent atrial fibrillation (Multi) 11/15/2024 1:50 PM EST [facility] Work Phone: ECG 12 lead (Clinic Performed) ECG 12 lead (Clinic Performed) ECG Routine Atrial fibrillation, unspecified type (Multi) 01/10/2025 3:00 PM [facility] Work Phone: ECG 12 lead (Clinic Performed) ECG 12 lead (Clinic Performed) ECG Routine Persistent atrial fibrillation (Multi) 04/30/2025 2:20 PM EDT [facility] Work Phone: Electrocardiogram, 12-lead PRN ACS symptoms [facility] Work Phone: Comment on above: As needed until disc ontinued starting 10/13/2024 As needed until disc ontinued starting 10/13/2024, 4 completed Electrocardiogram, 12-lead PRN ACS symptoms Electrocardiogram, 12-lead PRN ACS symptoms ECG Routine 10/15/2024 1:05 PM [facility] Work Phone: Electrocardiogram, 12-lead PRN ACS symptoms Electrocardiogram, 12-lead PRN ACS symptoms ECG Routine 10/16/2024 11:00 AM [facility] Work Phone: Electrocardiogram, 12-lead PRN ACS symptoms Electrocardiogram, 12-lead PRN ACS symptoms ECG Routine 10/13/2024 6:25 PM [facility] Work Phone: End: 10-22-2024 Magnesium [Mass/volume] in Serum or Plasma Magnesium Lab Routine Morning draw (Lab) for 1 Weeks starting 10/16/2024 until 10/22/2024, 1 completed [facility] Work Phone: Comment on above: Morning draw (Lab) f or 1 Weeks starting 10/16/2024 until 10/22/2024, 1 completed Patient referral [facility] Work Phone: End: 10-22-2024 Renal function 2000 panel - Serum or Plasma Renal Function Panel Lab Routine Morning draw (Lab) for 1 Weeks starting 10/16/2024 until 10/22/2024, 1 completed [facility] Work Phone: Comment on above: Morning draw (Lab) f or 1 Weeks starting 10/16/2024 until 10/22/2024, 1 completed [facility] Payers Date Payer Category Payer Self-pay [id number] 2020 Medicare MEDICARE PART A AND B [id number] 2020 Medicare supplementa l policy (as second payer) [facility] MEDICARE SELECT SUPPLEMENT [id number] 5 2020 Medicare [id number] 2009 Unknown [id number] 1955 Unknown [id number] 2.16.840.1.144456.3.579 .2.1244 1955 Unknown [id number] 2.16.840.1.518862.3.579 .2.1244 1955 Unknown [id number] 2.16.840.1.283628.3.579 .2.1241 1955 Unknown [id number] 2.16.840.1.604961.3.579 .2.1241 1955 Unknown [id number] 2.16.840.1.682352.3.579 .2.124 1955 Unknown [id number] 2.16.840.1.560031.3.579 .2.1241 1955 Unknown [id number] 2.16.840.1.940760.3.579 .2.1241 1955 Unknown [id number] 2.16.840.1.906560.3.579 .2.1241 1955 Unknown [id number] 2.16.840.1.077472.3.579 .2.124 1955 Unknown [id number] 2.16.840.1.677253.3.579 .2.1242 Unknown [id number] 2.16.840.1.562567.3.579 .2.462 Unknown [id number] 2.16.840.1.006932.3.579 .2.462 Unknown [id number] 2.16.840.1.590759.3.579 .2.462 Unknown [id number] 2.16.840.1.418683.3.579 .2.462 Unknown [id number] 2.16.840.1.031458.3.579 .2.462 Unknown [id number] 2.16.840.1.645042.3.579 .2.462 Unknown [id number] 2.16.840.1.387120.3.579 .2.462 Unknown [id number] 2.16.840.1.634187.3.579 .2.462 Unknown [id number] 2.16.840.1.691754.3.579 .2.462 Unknown [id number] 2.16.840.1.908045.3.579 .2.462 Unknown [id number] 2.16.840.1.375161.3.579 .2.462 Unknown [id number] 2.16.840.1.469336.3.579 .2.462 Unknown [id number] 2.16.840.1.870504.3.579 .2.462 Unknown [id number] 2.16.840.1.334517.3.579 .2.462 Unknown [id number] 2.16.840.1.236982.3.579 .2.462 Unknown [id number] 2.16.840.1.565685.3.579 .2.462 Unknown [id number] 2.16.840.1.693515.3.579 .2.462 Unknown [id number] 2.16.840.1.485811.3.579 .2.462 Social History Date Type Detail Facility [facility] Work Phone: Start: 1955 Sex Assigned At Female [facility] Start: 06-21-2023 End: 02-02-2024 Tobacco smoking status NHIS Unknown if ever smoked [facility] Start: 07-13-2024 End: 09-13-2024 Tobacco smoking status NHIS Never smoked tobacco [facility] Work Phone: Start: 09-13-2024 Tobacco use and exposure Smokeless tobacco non-user [facility] Work Phone: Start: 09-13-2024 End: 12-15-2024 History of Social function [facility] Start: 09-13-2024 End: 12-15-2024 Tobacco use panel [facility] Start: 1955 [facility] Start: 09-03-2024 End: 01-10-2025 Exposure to SARS-CoV-2 (event) Not sure [facility] Has the [employer], [employer], oil, or water company threatened to shut off services in your home in past 12Mo No [facility] Frequency of Communication with Friends and Family Not on file [facility] Work Phone: Are you now , , , , never or living with a partner? [facility] Work Phone: How often to you hav e a drink containing alcohol? Monthly or less [facility] How many standard drinks containing alcohol do you have on a typical day? 1 or 2 [facility] Work Phone: How often do you hav e 6 or more drinks on 1 occasion? Never [facility] Work Phone: How hard is it for y ou to pay for the very basics like food, housing, medical care, and heating Not very hard [facility] Work Phone: (I/We) worried whetom er (my/our) food would run out before (I/we) got money to buy more. Never true [facility] Work Phone: Start: 12-14-2024 End: 04-30-2025 Alcoholic beverage intake Current drinker of alcohol (finding) [facility] Work Phone: Start: 12-14-2024 Alcohol Comment on vacation [facility] Work Phone: Start: 12-14-2024 Gender identity Identifies as female gender (finding) [facility] Work Phone: Start: 01-25-2025 End: 02-01-2025 Sex Female (finding) [facility] NEGATED: Highlighted row [facility] Medical Equipment Procedure Code Equipment Code Equipment Origin al Text Equipment Identifier Dates FESS (functional endoscopic sinus surgery) Plant polysaccharide haemostatic agent, bioabsorbable [id number] Start: 06-28-2023 Lead, Capsurefix Novus, 58 Cm - [id number] Start: 10-13-2024 Lead, Pacemaker, Ultipace 58cm - [id number] - [id number] Start: 12-14-2024 Lead, Pacemaker, Ultipace 52cm - [id number] - [id number] Start: 12-14-2024 Pacemaker, Gener ator, Dual Assurity Mri - [id number] - [id number] Start: 12-14-2024 Comment on above: Description: DDD 70- 120bpm Goals Date Patient Goal Desired Activity /State Functional Status Date Assessment Result Facility 12-15-2024 Are you deaf, or do you have serious difficulty hearing No 12/15/2024 11:29 AM Hannah Saba, DANIEL No [facility] Work Phone: 12-15-2024 Are you blind, or do you have serious difficulty seeing, even when wearing glasses No 12/15/2024 11:29 AM Hannah Saba, RN No [facility] Work Phone: 12-15-2024 Do you have serious difficulty walking or climbing stairs No 12/15/2024 11:29 AM Hannah Saba, RN No [facility] Work Phone: 12-15-2024 Do you have difficul ty dressing or bathing No 12/15/2024 11:29 AM Hannah Saba RN No [facility] Work Phone: 12-15-2024 Because of a physica l, mental, or emotional condition, do you have difficulty doing errands alone such as visiting a physician's office or shopping No 12/15/2024 11:29 AM Hannah Saba RN No [facility] Work Phone: Mental Status Date Assessment Result Facility 12-15-2024 Because of a physica l, mental, or emotional condition, do you have serious difficulty concentrating, remembering, or making decisions No 12/15/2024 11:29 AM Hannah Saba RN No [facility] Work Phone: 06-28-2023 Cognitive function Voice/Name [facility] Work Phone: Clinical Notes 06-28-2023 to 04-30-2025 Lashonda Beltrán MD - 04/30/2025 2:20 PM Jame Beltrán MD - 01/10/2025 3:00 PM Bertram Nugent RN - 12/15/2024 11:52 AM Bertram Nugent RN - 12/15/2024 11:52 AM ESTDischarpranav Instructions Note Date & Type Note Facility 04-30-2025 History of Present illness Narrative Referred by Dr. Benavidez ref. provider found provider found for No chief complaint on file. Radha Thomas is a 69 y.o. year old female patient with h/o A Fib s/p RFA 6 months ago. Had evidence of sinus node dysfunction after ablation and PPM implant after the ablation. Presents for follow up. PMHx/PSHx: As above FamHx: unremarkable Allergies: RX Allergies[1] Review of Systems Constitutional: not feeling tired. Eyes: no eyesight problems. ENT: no hearing loss and no nosebleeds. Cardiovascular: no intermittent leg claudication and as noted in HPI. Respiratory: no chronic cough and no shortness of breath. Gastrointestinal: no change in bowel habits and no blood in stools. Genitourinary: no urinary frequency and no hematuria. Skin: no skin rashes. Neurological: no seizures and no frequent falls. Psychiatric: no depression and not suicidal. All other systems have been reviewed and are negative for complaint. Outpatient Medications: Current Outpatient Medications Medication Instructions amiodarone (PACERONE) 200 mg, oral, Daily apixaban (ELIQUIS) 5 mg, 2 times daily estradiol (ESTRACE) 0.5 mg levothyroxine (Synthroid, Levoxyl) 50 mcg tablet 1 tablet, Daily (629) lisinopril 20 mg, oral, Daily metoprolol tartrate (LOPRESSOR) 50 mg, 2 times daily triamcinolone (Kenalog) 0.1 % cream Apply topically. PRN Last Recorded Vitals: 12/14/2024 7:43 PM 12/14/2024 11:26 PM 12/15/2024 4:14 AM 12/15/2024 8:08 AM 12/15/2024 11:22 AM 01/10/2025 3:06 PM 04/30/2025 2:37 PM Vitals Systolic 121 127 139 124 146 166 143 Diastolic 69 64 78 75 75 90 79 BP Location Right arm Right arm Right arm Right arm Right arm Left arm Left arm Heart Rate 75 70 71 69 70 70 70 Temp 36.5 C (97.7 F) 35.8 C (96.4 F) 36.2 C (97.1 F) 36.8 C (98.2 F) 36.8 C (98.2 F) Resp 17 16 16 16 16 18 18 Height 1.664 m (5' 5.5) 1.664 m (5' 5.5) Weight (lb) 174 183 BMI 28.51 kg/m2 29.99 kg/m2 BSA (m2) 1.91 m2 1.96 m2 Visit Report Report Report Visit Vitals BP 143/79 (BP Location: Left arm, Patient Position: Sitting, BP Cuff Size: Adult) Pulse 70 Resp 18 Ht 1.664 m (5' 5.5) Wt 83 kg (183 lb) SpO2 98% BMI 29.99 kg/m OB Status Postmenopausal Smoking Status Never BSA 1.96 m Physical Exam: Constitutional: alert and in no acute distress. Eyes: no erythema, swelling or discharge from the eye . Neck: neck is supple, symmetric, trachea midline, no masses and no thyromegaly . Pulmonary: no increased work of breathing or signs of respiratory distress and lungs clear to auscultation. Cardiovascular: carotid pulses 2+ bilaterally with no bruit , JVP was normal, no thrills , regular rhythm, normal S1 and S2, no murmurs , pedal pulses 2+ bilaterally and no edema . Abdomen: abdomen non-tender, no masses and no hepatomegaly . Skin: skin warm and dry, normal skin turgor . Psychiatric judgment and insight is normal and oriented to person, place and time . Assessment/Plan Problem List Items Addressed This Visit ICD-10-CM Persistent atrial fibrillation (Multi) - Primary I48.19 Radha Thomas is a 69 y.o. year old female patient with h/o A Fib s/p RFA 6 months ago. Had evidence of sinus node dysfunction after ablation and PPM implant after the ablation. Presents for follow up. Her current ECG shows A paced rhythm with narrow QRS, HR 70 bpm Device check today showed no evidence of A Fib , normal device function, parameters adjusted. Will stop the amiodarone and continue the rest of the medications. Will follow up in 6 months (1 year from ablation. Lashonda Beltrán MD Cardiac Electrophysiology Thank you very much for allowing me to participate in the care of this pleasant patient. Please do not hesitate to contact me with any further questions or concerns regarding his care. 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 Benavidez ref. provider found provider found for Chief Complaint Patient presents with Atrial Fibrillation Radha Thomas is a 69 y.o. year old female patient with h/o A Fib s/p RFA 3 months ago, evidence of sinus node dysfunction after ablation and PPM implant about a month ago. Presents for follow up. PMHx/PSHx: As above FamHx: unremarkable Allergies: No Known Allergies Review of Systems Constitutional: not feeling tired. Eyes: no eyesight problems. ENT: no hearing loss and no nosebleeds. Cardiovascular: no intermittent leg claudication and as noted in HPI. Respiratory: no chronic cough and no shortness of breath. Gastrointestinal: no change in bowel habits and no blood in stools. Genitourinary: no urinary frequency and no hematuria. Skin: no skin rashes. Neurological: no seizures and no frequent falls. Psychiatric: no depression and not suicidal. All other systems have been reviewed and are negative for complaint. Outpatient Medications: Current Outpatient Medications Medication Instructions acetaminophen (TYLENOL) 650 mg, oral, Every 4 hours PRN amiodarone (Pacerone) 200 mg tablet Take 2 tablets (400 mg) by mouth 2 times a day for 7 days, THEN 1 tablet (200 mg) 2 times a day for 7 days, THEN 1 tablet (200 mg) once daily. apixaban (ELIQUIS) 5 mg, 2 times daily estradiol (ESTRACE) 0.5 mg levothyroxine (Synthroid, Levoxyl) 50 mcg tablet 1 tablet, Daily (30) lisinopril 20 mg, oral, Daily metoprolol tartrate (LOPRESSOR) 50 mg, 2 times daily triamcinolone (Kenalog) 0.1 % cream Apply topically. PRN Last Recorded Vitals: 12/14/2024 6:22 PM 12/14/2024 7:43 PM 12/14/2024 11:26 PM 12/15/2024 4:14 AM 12/15/2024 8:08 AM 12/15/2024 11:22 AM 01/10/2025 3:06 PM Vitals Systolic 125 121 127 139 124 146 166 Diastolic 81 69 64 78 75 75 90 BP Location Right arm Right arm Right arm Right arm Right arm Right arm Left arm Heart Rate 70 75 70 71 69 70 70 Temp 36.7 C (98 F) 36.5 C (97.7 F) 35.8 C (96.4 F) 36.2 C (97.1 F) 36.8 C (98.2 F) 36.8 C (98.2 F) Resp 19 17 16 16 16 16 18 Height 1.664 m (5' 5.5) Weight (lb) 174 BMI 28.51 kg/m2 BSA (m2) 1.91 m2 Visit Report Report Visit Vitals BP 166/90 (BP Location: Left arm, Patient Position: Sitting, BP Cuff Size: Adult) Pulse 70 Resp 18 Ht 1.664 m (5' 5.5) Wt 78.9 kg (174 lb) SpO2 98% BMI 28.51 kg/m OB Status Postmenopausal Smoking Status Never BSA 1.91 m Physical Exam: Constitutional: alert and in no acute distress. Eyes: no erythema, swelling or discharge from the eye . Neck: neck is supple, symmetric, trachea midline, no masses and no thyromegaly . Pulmonary: no increased work of breathing or signs of respiratory distress and lungs clear to auscultation. Cardiovascular: carotid pulses 2+ bilaterally with no bruit , JVP was normal, no thrills , regular rhythm, normal S1 and S2, no murmurs , pedal pulses 2+ bilaterally and no edema . Abdomen: abdomen non-tender, no masses and no hepatomegaly . Skin: skin warm and dry, normal skin turgor . Psychiatric judgment and insight is normal and oriented to person, place and time . Assessment/Plan Problem List Items Addressed This Visit None Visit Diagnoses Codes Atrial fibrillation, unspecified type (Multi) - Primary I48.91 Radha Thomas is a 69 y.o. year old female patient with h/o A Fib s/p RFA 3 months ago, evidence of sinus node dysfunction after ablation and PPM implant about a month ago. Presents for follow up. The patient reports doing well and being asymptomatic. Device check showed 8% A Fib. Will continue her current medications and follow up in 3 months (6 months from ablation). Lashonda Beltrán MD Cardiac Electrophysiology Thank you very much for allowing me to participate in the care of this pleasant patient. Please do not hesitate to contact me with any further questions or concerns regarding his care. 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 Patient's health-related risk factors discussed with patient. Patient educated to look for worsening signs and symptoms and educated to seek medical attention if experiencing medical emergency. Patient aware of needs to follow up with outpatient clinics as scheduled. Home going meds reviewed with patient. Patient verbalized understanding of disposition and discharge instructions. All questions answered to patient's satisfaction and within nursing scope of practice. Vitals stable; IV(s) removed. New scripts verified with home pharmacy. [facility] 12-15-2024 Nurse Note Discharge instructions provided using teachback method. Patient's health-related risk factors discussed with patient. Patient educated to look for worsening signs and symptoms and educated to seek medical attention if experiencing medical emergency. Patient aware of needs to follow up with outpatient clinics as scheduled. Home going meds reviewed with patient. Patient verbalized understanding of disposition and discharge instructions. All questions answered to patient's satisfaction and within nursing scope of practice. Vitals stable; IV(s) removed. New scripts verified with home pharmacy. documented in this encounter [facility] Work Phone: 12-15-2024 History of Present illness Narrative 12/15/24 1129 Discharge Planning Living Arrangements Spouse/significant other Support Systems Spouse/significant other Assistance Needed Independent, drives Type of Residence Private residence Number of Stairs to Enter Residence 2 Number of Stairs Within Residence 12 Do you have animals or pets at home? No Who is requesting discharge planning? Provider Home or Post Acute Services None Expected Discharge Disposition Home Financial Resource Strain How hard is it for you to pay for the very basics like food, housing, medical care, and heating? Not hard Housing Stability In the last 12 months, was there a time when you were not able to pay the mortgage or rent on time? N In the past 12 months, how many times have you moved where you were living? 0 At any time in the past 12 months, were you homeless or living in a fdc (including now)? N Transportation Needs In the past 12 months, has lack of transportation kept you from medical appointments or from getting medications? no In the past 12 months, has lack of transportation kept you from meetings, work, or from getting things needed for daily living? No Patient Choice Provider Choice list and CMS website (https://medicare.gov/care-tiago re#search) for post-acute Quality and Resource Measure Data were provided and reviewed with: Patient Patient / Family choosing to utilize agency / facility established prior to hospitalization No Stroke Family Assessment Stroke Family Assessment Needed No Intensity of Service Intensity of Service 0-30 min Met with patient at bedside and explained my role as careers adviser. She lives in the house with her . She is independent with her care at home. She drives. Patient denies use of any ambulatory devices. No oxygen in use at home, no HD. Her PCP is Dr. David Anderson ) and she seen him one month ago. Pharmacy she uses is [facility] in [place]. She is able to afford medications and to get to her doctors appointments. Patient had Dual pacemaker implanted yesterday. Patient denies any needs going home. Her is driving her home. 1135 Patient is medically ready for discharge They are being discharged to: Home __Husband will pick patient up [facility] N/A Patient denies any other needs 12/15/24 1129 ACS Disability Status Are you deaf or do you have serious difficulty hearing? N Are you blind or do you have serious difficulty seeing, even when wearing glasses? N Because of a physical, mental, or emotional condition, do you have serious difficulty concentrating, remembering, or making decisions? (5 years old or older) N Do you have serious difficulty walking or climbing stairs? N Do you have serious difficulty dressing or bathing? N Because of a physical, mental, or emotional condition, do you have serious difficulty doing errands alone such as visiting the doctor? N documented in this encounter [facility] Work Phone: 12-15-2024 Plan of care note Problem: Pain - Adult Goal: Verbalizes/displays adequate comfort level or baseline comfort level Outcome: Progressing Problem: Safety - Adult Goal: Free from fall injury Outcome: Progressing Problem: Discharge Planning Goal: Discharge to home or other facility with appropriate resources Outcome: Progressing Problem: Chronic Conditions and Co-morbidities Goal: Patient's chronic conditions and co-morbidity symptoms are monitored and maintained or improved Outcome: Progressing The patient's goals for the shift include The clinical goals for the shift include patient will remain hemodynamically stable for the duration of the shift [facility] 12-15-2024 Miscellaneous Notes Problem: Pain - Adult Goal: Verbalizes/displays adequate comfort level or baseline comfort level Outcome: Progressing Problem: Safety - Adult Goal: Free from fall injury Outcome: Progressing Problem: Discharge Planning Goal: Discharge to home or other facility with appropriate resources Outcome: Progressing Problem: Chronic Conditions and Co-morbidities Goal: Patient's chronic conditions and co-morbidity symptoms are monitored and maintained or improved Outcome: Progressing The patient's goals for the shift include The clinical goals for the shift include patient will remain hemodynamically stable for the duration of the shift The patient's goals for the shift include The clinical goals for the shift include Pt will remain hds Problem: Pain - Adult Goal: Verbalizes/displays adequate comfort level or baseline comfort level Outcome: Progressing Problem: Safety - Adult Goal: Free from fall injury Outcome: Progressing Problem: Discharge Planning Goal: Discharge to home or other facility with appropriate resources Outcome: Progressing Problem: Chronic Conditions and Co-morbidities Goal: Patient's chronic conditions and co-morbidity symptoms are monitored and maintained or improved Outcome: Progressing Problem: Nutrition Goal: Nutrient intake appropriate for maintaining nutritional needs Outcome: Progressing documented in this encounter [facility] Work Phone: 12-14-2024 Plan of care note The patient's goals for the shift include The clinical goals for the shift include Pt will remain hds Problem: Pain - Adult Goal: Verbalizes/displays adequate comfort level or baseline comfort level Outcome: Progressing Problem: Safety - Adult Goal: Free from fall injury Outcome: Progressing Problem: Discharge Planning Goal: Discharge to home or other facility with appropriate resources Outcome: Progressing Problem: Chronic Conditions and Co-morbidities Goal: Patient's chronic conditions and co-morbidity symptoms are monitored and maintained or improved Outcome: Progressing Problem: Nutrition Goal: Nutrient intake appropriate for maintaining nutritional needs Outcome: Progressing [facility] Work Phone: 12-14-2024 Note Procedures: Implant of dual chamber PPM (41477), cardioversion (97522) A left infraclavicular incision yielded access for creation of a prepectoral pocket. Two venous accesses were obtained with an extrathoracic left subclavian approach at the first rib under fluoroscopic guidance. Pace/sense leads were placed to the RV septal apex and RA. Appropriate capture and sensing thresholds were demonstrated. The leads were fixed to the pectoralis muscle with Ethibond sutures over the suture sleeves. After adequate hemostasis was assured and the pocket irrigated with antibiotic solution, a pacemaker pulse generator was connected to the leads and placed into the prepectoral pocket. The wound was closed with layers of absorbable suture. The patient was then sedated by anesthesia team and a DC cardioversion was successfully performed wit manuela 200J biphasic shock. The procedure was tolerated well and there were no complications. [id number] 12-14-2024 Hospital Discharge instructions Helen Ortiz APRN-LOZENGE MAKER - 12/14/2024 1:13 PM EST Images from the original note were not included. Home-going Instructions After Device Implant Follow up with Dr. Beltrán as scheduled on 01/10/25 at 3 pm. START DOXYCYCLINE (ANTIBIOTIC) TO HELP PREVENT INFECTION 100 MG TWICE DAILY UNTIL Wednesday12/21/24. TAKE TRAMADOL 50 MG EVERY 6 HOURS as needed for pain post procedure. Take Acetaminophen (Tylenol) 650 mg every 4-6 hours as needed for pain post procedure. START AMIODARONE 200 M TABLETS TWICE DAILY UNTIL Wednesday12/21/24, THEN 1 TABLET TWICE DAILY UNTIL Wednesday12/28/24, THEN 1 TABLET DAILY Incision: Please keep your incision dry and/or open to air for one week after implant (date: 12/21/24). Remove white rectangular outer island dressing tomorrow (date: Wednesday12/15/24) If you have skin glue, please keep your incision dry for 1 week. Do not remove it, as it will peel off by itself. If you have steri strips, please keep your incision dry for 1 week. Steri strips may be removed after one week/will fall off on their own. If you have an occlusive dressing like Aquacel (pickens-colored bandage) or Mepilex border, please leave on for one week. Do not remove the steri strips, they will fall off on their own Call the Device Clinic at [phone] if you have any questions about your instructions, Wednesday-Wednesday between the hours of 7:00 am - 4:30 pm. After hours please call your physician's office. After one week, you may wash the site with soap and water. Inspect your incision each day. If you note increased redness, swelling, or drainage, or if you develop a fever, please call your doctor IMMEDIATELY. Your Doctor: Dr. Lashonda Beltrán Pain: It is normal for the area around the incision to be tender for a few weeks following surgery. Pain relievers such as Tylenol or Motrin are usually sufficient for pain relief. The pain should get better each day, if it gets worse, please contact your doctor. Activity Restrictions: new implant 4 weeks (date: January 11). Avoid gross arm movement on the side of your new implant. Do not raise or stretch your arm above shoulder level. Do not pick-up weights greater than 15 lbs. Avoid activities such as golf or swimming for six weeks. Driving: Please do not resume driving for 1 week(s) date: Wednesday12/15/24 ID Card: It is important that you carry your device ID card with you at all times. Inform all doctors and healthcare providers that you have a pacemaker or defibrillator. Until the lead wires are completely healed in your heart, a prophylactic antibiotic may need to be given to you prior to procedures such as deep cleaning or extraction of teeth. Electromagnetic Interference: Microwave ovens are safe to use. Cellular telephones should be held to the ear that is opposite your device. If you are scheduled for a MRI, please notify the Device Clinic to check if you have a compatible device. Present your device ID card to the airport network security administrator. The detector wand may be used below waist level and to inspect your shoes. Read the patient booklet for more information. You may call the device clinic or the patient services department of the device complaint investigator with questions about specific electrical appliances and interference problems. It is your responsibility to make and keep appointments. After each visit on your way out, make an appointment for your next visit. Please follow the recommendations of your doctor for the frequency of appointments. Your Appointment: Date: Time: [facility]Carine Saldaña #[phone] [place] [address] [facility] [phone] [facility] [place] [address] [facility] [address] [place] [address] [facility] [address] [place] [address] [facility] [address] [place] [address] [facility] [address] [place] [address] [facility] [address] [place], [place] [address] [facility] [phone] [place] [address] [facility]les[facility] [phone] [place] [address] [facility] [address] [place] [address] [facility] [address] [facility], [address] [place], [place] [address] [facility] [address] [place] [address] [facility] [address] [place] [address] [facility] ([facility]) [address] [place] [address] [facility] [address] [address] [facility] [place] [address] Appointment [phone] Device Clinic: [phone] (this is Not an emergency number) Frequent Questions from ICD Patients What Does a Shock Feel Like? - Many patients describe a shock as a hard punch or kick to the chest. The discomfort is over quickly and does not remain like an actual punch or kick. What Should I Do If I Get a Shock? - Remain calm -your ICD is working. - If you are feeling well after your shock, call your ICD doctor. If you are not feeling well, call 911 and seek emergency treatment. - Family members should also know what to do if you get a shock. - Establish an emergency plan with family members and friends. Instruction in CPR is recommended. Can I Travel? -Always carry your ICD identification card. -Ask to be hand searched at security checkpoints, such as at the airport or your local courthouse. Hand wands are not a substitute for a pat down search. Surveillance wands may be used below your waist and on your shoes. -If you are making an extended trip to another city, your ICD doctor may recommend a physician or hospital that you can contact. Can I Drive? -Your doctor will specify any driving restrictions. Other Points: -Always notify healthcare providers, such as dentists and podiatrists, that you have an ICD. If any surgery is planned for you, the anesthesia personnel must know in advance about your ICD. Other Sources of Information: Device Clinic Nurses: [phone] Patient Services Department of the complaint investigator of your ICD The Internet holds an abundance of information. Some internet sites of interest: www.medtronic.com www.Habet.com www.[employer].com www.heartrhythm.com www.Synthonics.TagLabs This info is a general resource. It is not meant to replace your health care provider s advice. Ask your doctor or health care team any questions. Always follow their instructions. The following attachments cannot be sent through Care Everywhere.Amiodarone, ADULT (Cymraes)Doxycycline, ADULT (Cymraes)Pacemaker Insertion Discharge Instructions (Cymraes)Tramadol, ADULT (Cymraes)documented in this encounter [facility] Work Phone: 12-14-2024 History and physical note History Of Present Illness Radha Thomas is a 69 y.o. female with PMHx significant for HTN, hypothyroidism, Afib s/p RFA 10/13/24 on Eliquis presenting with atrial fibrillation and sinus node dysfunction, here for dual chamber PPM placement and DCCV following. Patient recently admitted for RFA for atrial fibrillation 10/13-10/16/25. Post ablation, patient developed sinus node dysfunction requiring TVP placement and admission to CICU. In CICU, patient was not pacer dependent. TVP removed 10/16 due to good chronotropic response with walking. She did revert to slow Afib post ablation. Metoprolol Succinate continued while her home Flecainide was discontinued. Patient last took Eliquis this morning prior to arrival. Past Medical History: Past Medical History: Diagnosis Date Atrial fibrillation (Multi) Difficult intubation 10/13/2024 Easy mask, mac 4, grade 3 anterior. 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 History of meningioma HTN (hypertension) Hypothyroidism Past Surgical History: Past Surgical History: Procedure Laterality Date BRAIN MENINGIOMA EXCISION 1994 BREAST BIOPSY CARDIAC ELECTROPHYSIOLOGY PROCEDURE N/A 10/13/2024 Procedure: Ablation A-Fib; Surgeon: Lashonda Beltrán MD; Location: [place] [address] Cardiac Assessment Counselor; Service: Electrophysiology; Laterality: N/A; carto CARDIAC ELECTROPHYSIOLOGY PROCEDURE N/A 10/13/2024 Procedure: Temporary Pacemaker Insertion; Surgeon: Lashonda Beltrán MD; Location: [place] [address] Cardiac Assessment Counselor; Service: Electrophysiology; Laterality: N/A; DILATION AND CURETTAGE OF UTERUS HYSTERECTOMY MANDIBLE SURGERY 1999, 2002 THROAT SURGERY TONSILLECTOMY Social History: reports that she has never smoked. She has never used smokeless tobacco. Family History: No family history on file. Allergies: No Known Allergies Home Medications: Current Outpatient Medications Medication Instructions apixaban (ELIQUIS) 5 mg, 2 times daily estradiol (ESTRACE) 0.5 mg levothyroxine (Synthroid, Levoxyl) 50 mcg tablet 1 tablet, Daily (629) lisinopril 20 mg, oral, Daily metoprolol tartrate (LOPRESSOR) 50 mg, 2 times daily pantoprazole (PROTONIX) 40 mg, oral, 2 times daily before meals, Do not crush, chew, or split. triamcinolone (Kenalog) 0.1 % cream Apply topically. PRN Inpatient Medications: Scheduled medications Medication Dose Route Frequency ceFAZolin 1 g intravenous Once PRN medications Medication Continuous Medications Medication Dose Last Rate Review of Systems Constitutional: Negative. HENT: Negative. Eyes: Negative. Respiratory: Negative. Cardiovascular: Negative. Gastrointestinal: Negative. Endocrine: Negative. Genitourinary: Negative. Musculoskeletal: Negative. Skin: Negative. Allergic/Immunologic: Negative. Neurological: Negative. Hematological: Negative. Psychiatric/Behavioral: Negative. Physical Exam General: Patient is awake, alert, and oriented. Patient is in no acute distress. HEENT: Pupils equal and reactive. Normocephalic. Moist mucosa. Neck: No JVD. Cardiovascular: IRR. No murmurs/rubs/gallops. Radial pulses 2+. Pulmonary: Clear to auscultation bilaterally. Abdomen: Soft. Non-tender. Non-distended. Positive bowel sounds. Lower Extremities: Pedal pulses 2+ No LE edema. Neurologic: Cranial nerves II-XII grossly intact. No focal deficit. Skin: Skin warm and dry, no lesions. Normal skin turgor. Psychiatric: Normal affect. Sedation Plan ASA 3 Mallampati class: III. Risks, benefits, and alternatives discussed with patient. NPO since 0000 Last Recorded Vitals Blood pressure 140/72, pulse 83, temperature 36.6 C (97.9 F), temperature source Temporal, resp. rate 16, height 1.651 m (5' 5), weight 78.5 kg (173 lb), SpO2 99%. Vitals from the Past 24 Hours Relevant Results Labs POCT Glucose: POCT Urine : CBC: Recent Labs 10/16/24 0150 10/15/24 0333 10/14/2459910/13/241933 WBC 7.2 8.2 7.3 10.9 HGB 10.6* 11.0* 10.8* 11.9* HCT 30.8* 32.3* 32.8* 35.7* PLT 104* 119* 115* 146* MCV 86 88 91 90 BMP/CMP: Recent Labs 10/16/24 01510/15/24 03410/14/2459910/13/241933 NA 139 137 134* 139 K 3.9 4.0 4.2 4.1 CL 108* 106 104 109* BUN 9 16 15 15 CREATININE 0.62 0.70 0.80 0.71 CO2 23 22 23 21 CALCIUM 8.2* 8.5* 8.6 8.7 PROT -- -- -- 6.4 BILITOT -- -- -- 1.0 ALKPHOS -- -- -- 62 ALT -- -- -- 17 AST -- -- -- 23 GLUCOSE 111* 129* 130* 135* Magnesium: Recent Labs 10/16/24 0150 10/15/24 03410/14/2459910/13/241933 MG 2.12 1.68 1.77 1.87 Lipid Panel: No results for input(s): CHOL, HDL, CHHDL, LDL, VLDL, TRIG, NHDL in the last 58178 hours. Cardiac No lab exists for component: CK, CKMBP Hemoglobin A1C: No results for input(s): HGBA1C in the last 97708 hours. TSH/ Free T4: Recent Labs 10/13/241933 TSH 5.02* Iron: No results for input(s): FERRITIN, TIBC, IRONSAT, BNP in the last 92125 hours. Coag: ABO: No results found for: ABO Past Cardiology Tests (Last 3 Years): EKG: Recent Labs 11/15/24 1350 10/16/24 1100 10/16/24 0945 10/15/24 1305 10/14/24 0217 ATRRATE 96 64 91 < > 79 VENTRATE 91 64 92 < > 79 PRINT -- 224 -- -- 234 QRSDUR 80 96 92 < > 90 QTCFRED 407 439 422 < > 388 QTCCALCB 435 443 452 < > 405 < > = values in this interval not displayed. Encounter Date: 11/15/24 ECG 12 lead (Clinic Performed) Result Value Ventricular Rate 91 Atrial Rate 96 QRS Duration 80 QT Interval 354 QTC Calculation(Bazett) 435 R [place] 26 T [place] 48 QRS Count 15 Q Onset 221 T Offset 398 QTC [place] 407 Narrative Atrial fibrillation Abnormal ECG When compared with ECG of 16-OCT-2024 09:44, Nonspecific T wave abnormality, improved in Inferior leads T wave inversion no longer evident in Anterior leads Confirmed by Lashonda Beltrán ([id number]) on 11/16/2024 8:51:44 AM Echo: Echocardiogram: No results found for this or any previous visit from the past 1800 days. Ejection Fractions: LV EF Date/Time Value Ref Range Status 10/15/2024 01:17 AM 58 % Cath: Coronary Angiography: No results found for this or any previous visit from the past 1800 days. Right Heart Cath: No results found for this or any previous visit from the past 1800 days. Stress Test: Nuclear:No results found for this or any previous visit from the past 1800 days. Metabolic Stress: No results found for this or any previous visit from the past 1800 days. Cardiac Imaging: Cardiac Scoring: No results found for this or any previous visit from the past 1800 days. Cardiac MRI: No results found for this or any previous visit from the past 1800 days. Assessment/Plan Assessment/Plan Assessment & Plan Status post placement of cardiac pacemaker Persistent atrial fibrillation (Multi) --Dual chamber PPM implant & cardioversion with Dr. Beltrán on 12/14/24 -prophylaxis antibiotic prior to implant -resume OAC tonight due to risk for CVA post cardioversion for Afib. Discussed with Dr. Beltrán. He is also aware that patient last took Eliquis this AM prior to arrival. -place under extended stay tonight 12/14/24 -CXR tomorrow AM to r/o pneumothorax and ensure lead placement intact -device nurse to see tomorrow morning -plan to dc home tomorrow 12/13/24 on prophylactic antibiotics [employer] discussed with Dr. Beltrán regarding plan of care/ discharge plan I spent 30 minutes in the professional and overall care of this patient. JOSH Schmitt [facility] Work Phone: 12-14-2024 History and physical note History Of Present Illness Radha Thomas is a 69 y.o. female with PMHx significant for HTN, hypothyroidism, Afib s/p RFA 10/13/24 on Eliquis presenting with atrial fibrillation and sinus node dysfunction, here for dual chamber PPM placement and DCCV following. Patient recently admitted for RFA for atrial fibrillation 10/13-10/16/25. Post ablation, patient developed sinus node dysfunction requiring TVP placement and admission to CICU. In CICU, patient was not pacer dependent. TVP removed 10/16 due to good chronotropic response with walking. She did revert to slow Afib post ablation. Metoprolol Succinate continued while her home Flecainide was discontinued. Patient last took Eliquis this morning prior to arrival. Past Medical History: Past Medical History: Diagnosis Date Atrial fibrillation (Multi) Difficult intubation 10/13/2024 Easy mask, mac 4, grade 3 anterior. 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 History of meningioma HTN (hypertension) Hypothyroidism Past Surgical History: Past Surgical History: Procedure Laterality Date BRAIN MENINGIOMA EXCISION 1994 BREAST BIOPSY CARDIAC ELECTROPHYSIOLOGY PROCEDURE N/A 10/13/2024 Procedure: Ablation A-Fib; Surgeon: Lashonda Beltrán MD; Location: [place] [address] Cardiac Assessment Counselor; Service: Electrophysiology; Laterality: N/A; carto CARDIAC ELECTROPHYSIOLOGY PROCEDURE N/A 10/13/2024 Procedure: Temporary Pacemaker Insertion; Surgeon: Lashonda Beltrán MD; Location: [place] [address] Cardiac Assessment Counselor; Service: Electrophysiology; Laterality: N/A; DILATION AND CURETTAGE OF UTERUS HYSTERECTOMY MANDIBLE SURGERY 1999, 2002 THROAT SURGERY TONSILLECTOMY Social History: reports that she has never smoked. She has never used smokeless tobacco. Family History: No family history on file. Allergies: No Known Allergies Home Medications: Current Outpatient Medications Medication Instructions apixaban (ELIQUIS) 5 mg, 2 times daily estradiol (ESTRACE) 0.5 mg levothyroxine (Synthroid, Levoxyl) 50 mcg tablet 1 tablet, Daily (629) lisinopril 20 mg, oral, Daily metoprolol tartrate (LOPRESSOR) 50 mg, 2 times daily pantoprazole (PROTONIX) 40 mg, oral, 2 times daily before meals, Do not crush, chew, or split. triamcinolone (Kenalog) 0.1 % cream Apply topically. PRN Inpatient Medications: Scheduled medications Medication Dose Route Frequency ceFAZolin 1 g intravenous Once PRN medications Medication Continuous Medications Medication Dose Last Rate Review of Systems Constitutional: Negative. HENT: Negative. Eyes: Negative. Respiratory: Negative. Cardiovascular: Negative. Gastrointestinal: Negative. Endocrine: Negative. Genitourinary: Negative. Musculoskeletal: Negative. Skin: Negative. Allergic/Immunologic: Negative. Neurological: Negative. Hematological: Negative. Psychiatric/Behavioral: Negative. Physical Exam General: Patient is awake, alert, and oriented. Patient is in no acute distress. HEENT: Pupils equal and reactive. Normocephalic. Moist mucosa. Neck: No JVD. Cardiovascular: IRR. No murmurs/rubs/gallops. Radial pulses 2+. Pulmonary: Clear to auscultation bilaterally. Abdomen: Soft. Non-tender. Non-distended. Positive bowel sounds. Lower Extremities: Pedal pulses 2+ No LE edema. Neurologic: Cranial nerves II-XII grossly intact. No focal deficit. Skin: Skin warm and dry, no lesions. Normal skin turgor. Psychiatric: Normal affect. Sedation Plan ASA 3 Mallampati class: III. Risks, benefits, and alternatives discussed with patient. NPO since 0000 Last Recorded Vitals Blood pressure 140/72, pulse 83, temperature 36.6 C (97.9 F), temperature source Temporal, resp. rate 16, height 1.651 m (5' 5), weight 78.5 kg (173 lb), SpO2 99%. Vitals from the Past 24 Hours Relevant Results Labs POCT Glucose: POCT Urine : CBC: Recent Labs 10/16/24 0150 10/15/24 0333 10/14/24 0600 10/13/24 1934 WBC 7.2 8.2 7.3 10.9 HGB 10.6* 11.0* 10.8* 11.9* HCT 30.8* 32.3* 32.8* 35.7* PLT 104* 119* 115* 146* MCV 86 88 91 90 BMP/CMP: Recent Labs 10/16/24 0150 10/15/24 0340 10/14/2459910/13/241933 NA 139 137 134* 139 K 3.9 4.0 4.2 4.1 CL 108* 106 104 109* BUN 9 16 15 15 CREATININE 0.62 0.70 0.80 0.71 CO2 23 22 23 21 CALCIUM 8.2* 8.5* 8.6 8.7 PROT -- -- -- 6.4 BILITOT -- -- -- 1.0 ALKPHOS -- -- -- 62 ALT -- -- -- 17 AST -- -- -- 23 GLUCOSE 111* 129* 130* 135* Magnesium: Recent Labs 10/16/24 01510/15/2433910/14/2459910/13/241933 MG 2.12 1.68 1.77 1.87 Lipid Panel: No results for input(s): CHOL, HDL, CHHDL, LDL, VLDL, TRIG, NHDL in the last 50328 hours. Cardiac No lab exists for component: CK, CKMBP Hemoglobin A1C: No results for input(s): HGBA1C in the last 51411 hours. TSH/ Free T4: Recent Labs 10/13/241933 TSH 5.02* Iron: No results for input(s): FERRITIN, TIBC, IRONSAT, BNP in the last 05643 hours. Coag: ABO: No results found for: ABO Past Cardiology Tests (Last 3 Years): EKG: Recent Labs 11/15/24 1350 10/16/24 1100 10/16/24 0945 10/15/24 1305 10/14/24 0217 ATRRATE 96 64 91 < > 79 VENTRATE 91 64 92 < > 79 PRINT -- 224 -- -- 234 QRSDUR 80 96 92 < > 90 QTCFRED 407 439 422 < > 388 QTCCALCB 435 443 452 < > 405 < > = values in this interval not displayed. Encounter Date: 11/15/24 ECG 12 lead (Clinic Performed) Result Value Ventricular Rate 91 Atrial Rate 96 QRS Duration 80 QT Interval 354 QTC Calculation(Bazett) 435 R [place] 26 T [place] 48 QRS Count 15 Q Onset 221 T Offset 398 QTC [place] 407 Narrative Atrial fibrillation Abnormal ECG When compared with ECG of 16-OCT-2024 09:44, Nonspecific T wave abnormality, improved in Inferior leads T wave inversion no longer evident in Anterior leads Confirmed by Lashonda Beltrán ([id number]) on 11/16/2024 8:51:44 AM Echo: Echocardiogram: No results found for this or any previous visit from the past 1800 days. Ejection Fractions: LV EF Date/Time Value Ref Range Status 10/15/2024 01:17 AM 58 % Cath: Coronary Angiography: No results found for this or any previous visit from the past 1800 days. Right Heart Cath: No results found for this or any previous visit from the past 1800 days. Stress Test: Nuclear:No results found for this or any previous visit from the past 1800 days. Metabolic Stress: No results found for this or any previous visit from the past 1800 days. Cardiac Imaging: Cardiac Scoring: No results found for this or any previous visit from the past 1800 days. Cardiac MRI: No results found for this or any previous visit from the past 1800 days. Assessment/Plan Assessment/Plan Assessment & Plan Status post placement of cardiac pacemaker Persistent atrial fibrillation (Multi) --Dual chamber PPM implant & cardioversion with Dr. Beltrán on 12/14/24 -prophylaxis antibiotic prior to implant -resume OAC tonight due to risk for CVA post cardioversion for Afib. Discussed with Dr. Beltrán. He is also aware that patient last took Eliquis this AM prior to arrival. -place under extended stay tonight 12/14/24 -CXR tomorrow AM to r/o pneumothorax and ensure lead placement intact -device nurse to see tomorrow morning -plan to dc home tomorrow 12/13/24 on prophylactic antibiotics [employer] discussed with Dr. Beltrán regarding plan of care/ discharge plan I spent 30 minutes in the professional and overall care of this patient. JOSH Schmitt documented in this encounter [facility] Work Phone: 12-13-2024 Evaluation note Diagnosis Onset Date Resolution Persistent atrial fibrillation acute December 13 8:29am Hypertension chronic December 8:29am [facility] Work Phone: 1(579) 538-291401-08-2025 History of Present illness Narrative* Lashonda Beltrán MD - 11/15/2024 2:40 PM EST Referred by Lashonda Mosqueda MD provider found for No chief complaint on file. Radha Thomas is a 69 y.o. year old female patient with h/o A Fib s/p RFA 6 weeks ago. The procedure was complicated with transitory sinus node dysfunction that required temp pacemaker for a coupleof days with recover of function. Presents for follow up. PMHx/PSHx: As above FamHx: unremarkable Allergies: No Known Allergies Review of Systems Constitutional: not feeling tired. Eyes: no eyesight problems. ENT: no hearing loss and no nosebleeds. Cardiovascular: no intermittent leg claudication and as noted in HPI. Respiratory: no chronic cough and no shortness of breath. Gastrointestinal: no change in bowel habits and no blood in stools. Genitourinary: no urinary frequency and no hematuria. Skin: no skin rashes. Neurological: no seizures and no frequent falls. Psychiatric: no depression and not suicidal. All other systems have been reviewed and are negative for complaint. Outpatient Medications: Current Outpatient Medications Medication Instructions apixaban (ELIQUIS) 5 mg, 2 times daily estradiol (ESTRACE) 0.5 mg levothyroxine (Synthroid, Levoxyl) 50 mcg tablet 1 tablet, Daily (0630) lisinopril 20 mg, oral, Daily metoprolol tartrate (Lopressor) 25 mg tablet 1 tablet, Every 12 hours scheduled (0630,1830) pantoprazole (PROTONIX) 40 mg, oral, 2 times daily before meals, Do not crush, chew, or split. triamcinolone (Kenalog) 0.1 % cream Apply topically. PRN Last Recorded Vitals: 10/16/2024 10:00 AM 10/16/2024 11:00 AM 10/16/2024 12:00 PM 10/16/2024 12:16 PM 10/16/2024 1:00 PM 10/16/2024 2:00 PM 10/16/2024 3:00 PM Vitals Heart Rate 97 91 93 89 96 93 Temp 36 C (96.8 F) Resp 22 18 20 13 22 21 Visit Vitals Smoking Status Never Physical Exam: Constitutional: alert and in no acute distress. Eyes: no erythema, swelling or discharge from the eye . Neck: neck is supple, symmetric, trachea midline, no masses and no thyromegaly . Pulmonary: no increased work of breathing or signs of respiratory distress and lungs clear to auscultation. Cardiovascular: carotid pulses 2+ bilaterally with no bruit , JVP was normal, no thrills , regular rhythm, normal S1 and S2, no murmurs , pedal pulses 2+ bilaterally and no edema . Abdomen: abdomen non-tender, no masses and no hepatomegaly . Skin: skin warm and dry, normal skin turgor . Psychiatric judgment and insight is normal and oriented to person, place and time . Assessment/Plan Problem List Items Addressed This Visit ICD-10-CM Longstanding persistent atrial fibrillation (Multi) - Primary I48.11 Relevant Orders ECG 12 lead (Clinic Performed) Radha Thomas is a 69 y.o. year old female patient with h/o A Fib s/p RFA 6 weeks ago. The procedure was complicated with transitory sinus node dysfunction that required temp pacemaker for a coupleof days with recover of function. Presents for follow up. Unfortunately she is back in A fib, HR 91 bpm. I think the sinus node dysfunction is in part responsible for this outcome and it would be risky to plan the next step with PPM implant first. After discussing the options with the patient we agrees to proceed with PPM impant + DCC. Lashonda Beltrán MD Cardiac Electrophysiology Thank you very much for allowing me to participate in the care of this pleasant patient. Please do not hesitate to contact me with any further questions or concerns regarding his care. 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, however minor errors may be present documented in this [facility] Work Phone: 1(239) 422-979112-09-2024 History of Present illness Narrative* Keisha Madrid, PT - 10/16/2024 4:09 PM EST Physical Therapy Physical Therapy Evaluation & Treatment Patient Name: Radha Thomas Department: [facility] [address] Room: 10/19-A Today's Date: 10/16/2024 Time Calculation Start Time: 1241 Stop Time: 1304 Time Calculation (min): 23 min Assessment/Plan PT Assessment PT Assessment Results: Decreased endurance, Decreased mobility, Impaired balance Rehab Prognosis: Excellent Barriers to Discharge: none End of Session Communication: Bedside nurse End of Session Patient Position: Up in chair, Alarm off, not on at start of session IP OR SWING BED PT PLAN Inpatient or Swing Bed: Inpatient PT Plan Treatment/Interventions: Bed mobility, Transfer training, Gait training, Stair training, Balance training, Strengthening, Endurance training, Therapeutic exercise, Therapeutic activity PT Plan: Ongoing PT PT Frequency: 2 times per week PT Discharge Recommendations: No PT needed after discharge PT Recommended Transfer Status: Stand by assist PT - OK to Discharge: Yes Subjective General Visit Information: General Reason for Referral: s/p elective Afib ablation on 10/13 c/b CHB s/p screw-in TVP Past Medical History Relevant to Rehab: Hypothyroidism, HTN, New Afib s/p 2 failed DCCV Family/Caregiver Present: No Prior to Session Communication: Bedside nurse Patient Position Received: Bed, 3 rail up, Alarm off, not on at start of session General Comment: Pt pleasant and cooperative. Irritated about prolonged bedrest with conflicting information about screw-in TVP and mobility. [facility] and OK with mobility as TVP is screw-in. Home Living: Home Living Type of Home: House Lives With: ( who is home and able to assist as needed) Home Adaptive Equipment: None Home Layout: Able to live on main level with bedroom/bathroom Home Access: Stairs to enter with rails Entrance Stairs-Rails: (pt denies railing, but reports having support from wall) Entrance Stairs-Number of Steps: 2 Bathroom Shower/Tub: Walk-in shower Bathroom Equipment: Built-in shower seat Prior Level of Function: Prior Function Per Pt/Caregiver Report Level of [place]: Independent with ADLs and functional transfers ADL Assistance: Independent Homemaking Assistance: Independent Ambulatory Assistance: Independent (Community ambulator, no AD, denies recent falls) Vocational: Retired (Used to work at [employer] Leisure: (+) drives, likes to be active Precautions: Precautions Medical Precautions: Cardiac precautions, Fall precautions Lines/Tubes: Telemetry Arterial line TVP via L internal jugular- set at 40 Vital Signs Vitals Session Pre PT During PT Post PT Heart Rate 87 91 Resp 14 16 SpO2 96 >/= 96% 97 BP 158/80 SBP dropping to 130s with sitting EOB and transfer to chair, but increased quickly with seated rest break. No drop in SBP with ambulating. 171/87 Objective Pain: Pain Assessment Pain Assessment: 0-10 0-10 (Numeric) Pain Score: (Pt denied pain at this time, but did have ongoing back pain throughout the weekend from prolonged bedrest) Cognition: Cognition Overall Cognitive Status: Within Functional Limits Arousal/Alertness: Appropriate responses to stimuli Orientation Level: Oriented X4 Following Commands: Follows all commands and directions without difficulty General Assessments: Activity Tolerance Early Mobility/Exercise Safety Screen: Proceed with mobilization - No exclusion criteria met Sensation Light Touch: (Intact light touch sensation in B LEs) Strength Strength Comments: B LE strength >/= 4+/5 throughout Strength Strength Comments: B LE strength >/= 4+/5 throughout Coordination Movements are Fluid and Coordinated: Yes Static Sitting Balance Static Sitting-Balance Support: No upper extremity supported, Feet supported Static Sitting-Level of Assistance: Close supervision Dynamic Sitting Balance Dynamic Sitting-Balance Support: No upper extremity supported, Feet supported Dynamic Sitting-Level of Assistance: Close supervision Static Standing Balance Static Standing-Balance Support: No upper extremity supported Static Standing-Level of Assistance: Close supervision Dynamic Standing Balance Dynamic Standing-Balance Support: No upper extremity supported Dynamic Standing-Level of Assistance: Contact guard Functional Assessments: Bed Mobility Bed Mobility: Yes Bed Mobility 1 Bed Mobility 1: Supine to sitting Level of Assistance 1: Contact guard Bed Mobility Comments 1: HOB elevated Transfers Transfer: Yes Transfer 1 Transfer From 1: Sit to Transfer to 1: Stand Technique 1: Sit to stand Transfer Level of Assistance 1: Contact guard Transfers 2 Transfer From 2: Stand to Transfer to 2: Sit Technique 2: Stand to sit Transfer Level of Assistance 2: Contact guard Ambulation/Gait Training Ambulation/Gait Training Performed: Yes Ambulation/Gait Training 1 Surface 1: Level tile Device 1: No device Assistance 1: Contact guard Comments/Distance (ft) 1: 5 ft Extremity/Trunk Assessments: RLE RLE : Within Functional Limits LLE LLE : Within Functional Limits Treatments: Therapeutic Activity Therapeutic Activity Performed: Yes Therapeutic Activity 1: Pt completed sit<->stand with no AD and supervision. Therapeutic Activity 2: Pt ambulated 260 ft with no AD and CGA progressing to close supervision. Slight pathway deviation noted but no acute LOB Outcome Measures: [facility] Basic Mobility Turning from your back to your side while in a flat bed without using bedrails: None Moving from lying on your back to sitting on the side of a flat bed without using bedrails: A little Moving to and from bed to chair (including a wheelchair): A little Standing up from a chair using your arms (e.g. wheelchair or bedside chair): A little To walk in hospital room: A little Climbing 3-5 steps with railing: A little Basic Mobility - Total Score: 19 Confusion Assessment Method-ICU (CAM-ICU) Feature 1: Acute Onset or Fluctuating Course: Negative Overall CAM-ICU: Negative FSS-ICU Ambulation: Walks >/ or equal to 150 feet with supervision Rolling: Supervision or set-up only Sitting: Supervision or set-up only Transfer [id number]: Supervision or set-up only Transfer [id number]: Supervision or set-up only Total Score: 25 Early Mobility/Exercise Safety Screen: Proceed with mobilization - No exclusion criteria met ICU Mobility Scale: Walking with assistance of 1 person [8] E = Exercise and Early Mobility Early Mobility/Exercise Safety Screen: Proceed with mobilization - No exclusion criteria met ICU Mobility Scale: Walking with assistance of 1 person Encounter Problems Encounter Problems (Active) Balance Pt will score >45 on MCKEON for safe community ambulation (Progressing) Start: 10/16/24 Expected End: 10/30/24 Mobility Patient will ambulate >1000 ft with no assistive device indep with stable vitals (Progressing) Start: 10/16/24 Expected End: 10/30/24 Patient will ascend and descend 2 stairs with no UE support with supervision (Progressing) Start: 10/16/24 Expected End: 10/30/24 Pt will completed 6MWT and amb >900 ft with no assistive device and supervision (Progressing) Start: 10/16/24 Expected End: 10/30/24 PT Transfers Patient to transfer to and from sit to supine indep (Progressing) Start: 10/16/24 Expected End: 10/30/24 Patient will transfer sit to and from stand indep (Progressing) Start: 10/16/24 Expected End: 10/30/24 Pain - Adult Education Documentation Mobility Training, taught by Keisha Madrid PT at 10/16/2024 4:08 PM. Learner: Patient Readiness: Acceptance Method: Explanation Response: Verbalizes Understanding Comment: mobility precautions Education Comments No comments found. Signed by CB HernandezT * Petr Vigil MD - 10/16/2024 3:47 PM EST Subjective Data: Feels ok, in AF since 10/14 PM, no palpitations, pericarditis chest pain better. No sustained pacingat VVI 40 Objective Data: Last Recorded Vitals: Vitals: 10/16/24 1200 10/16/24 1216 10/16/24 1300 10/16/24 1400 BP: Pulse: 93 89 96 Resp: 20 13 22 Temp: 36 C (96.8 F) TempSrc: Temporal SpO2: 96% 97% 96% Weight: Height: Last Labs: CBC - 10/16/2024: 1:50 AM 7.2 10.6 104 30.8 CMP - 10/16/2024: 1:50 AM 8.2 6.4 23 --- 1.0 2.0 3.4 17 62 PTT - 10/13/2024: 7:34 PM 1.1 12.6 133 TROPHS Date/Time Value Ref Range Status 10/15/2024 03:33 AM 531 0 - 34 ng/L Final Comment: Previous result verified on 10/15/2024 0304 on specimen/case [id number] called with component [facility] for procedure Troponin I, High Sensitivity with value 676 ng/L. 10/14/2024 11:02 PM 676 0 - 34 ng/L Final Last I/O: I/O last 3 completed shifts: In: - (0 mL/kg) Out: 800 (9.6 mL/kg) [Urine:800 (0.3 mL/kg/hr)] Weight: 83.3 kg Past Cardiology Tests (Last 3 Years): EKG: Electrocardiogram, 12-lead PRN ACS symptoms 10/16/2024 (Preliminary) Electrocardiogram, 12-lead PRN ACS symptoms 10/16/2024 Electrocardiogram, 12-lead PRN ACS symptoms 10/15/2024 (Preliminary) Electrocardiogram - Day of Discharge 10/14/2024 (Preliminary) Electrocardiogram - Post Ablation 10/13/2024 (Preliminary) ECG 12 lead (Clinic Performed) 09/13/2024 Echo: No results found for this or any previous visit from the past 1095 days. Ejection Fractions: No results found for: EF Cath: Cardiac Catheterization Procedure 10/13/2024 Stress Test: No results found for this or any previous visit from the past 1095 days. Cardiac Imaging: No results found for this or any previous visit from the past 1095 days. Inpatient Medications: Scheduled medications Medication Dose Route Frequency apixaban 5 mg oral BID colchicine 0.6 mg oral BID flecainide 100 mg oral q12h WILFREDO levothyroxine 50 mcg oral Daily lidocaine 1 patch transdermal Daily lisinopril 20 mg oral Daily melatonin 3 mg oral Daily metoprolol tartrate 12.5 mg oral q6h PRN medications Medication acetaminophen nitroglycerin polyethylene glycol Continuous Medications Medication Dose Last Rate Physical Exam: Constitutional: well appearing, no distress Eyes: no conjunctival injection ENT: moist mucous , no apparent injury Respiratory/Thorax: normal work of breathing on room air Cardiovascular: normal rate, irreg irreg rhythm, extremities warm, JVP not elevated Extremities: warm, intact Assessment/Plan 69F hx hypothyroidism, HTN, new afib s/p 2 failed DCCV on flecainide who was admitted to CICU from EP lab after PVI and posterior wall isolation for AF complicated by sinus arrest (ventricular [id number] with retrograde conduction) s/p temp RV lead placement for TVP 10/13. 10/14 PM - sinus 60s -> AF 100s 10/16 - pericarditis pain better, still in AF 90s on metop 12q6 and flecainide 100 bid Transient sinus arrest post-cardioversion while under general anesthesia for PVI and posterior wallisolation 10/13, requiring brief pacing from temp RV lead, now with recovery of sinus rate 70s post-procedurally, then recurrence of AF with post-ablation pericarditis. No indication for PPM given recovery of sinus activity, but given her prior significant sinus arrest will hold off on flecainide (to prevent a downstream sinus arrest after conversion pause). Recommendations: - removed RV temporary pacing lead 10/16 - Continue anticoagulation with apixaban - pantoprazole 40 bid x30 days post-ablation - discontinue flecainide - continue metoprolol to target resting HR 90-100s - can discharge from EP standpoint -follow-up with Dr Beltrán in 4-6 weeks post ablation Thank you for the opportunity to contribute to the care of this patient. Above recommendations discussed with Dr. Beltrán. If further questions arise, [place] [phone] on weekdays 7AM - 6PM and weekends 7AM - 2PM, or [place] [phone] at all other times. The EP device nurse can be reached at pager [phone] during regular business hours M-. Peripheral IV 10/13/24 20 G Proximal;Right;Ventral Forearm (Active) Site Assessment Clean;Intact;Dry 10/16/24 1200 Dressing Type Antimicrobial patch 10/16/24 1200 Line Status Flushed;Saline locked 10/16/24 1200 Dressing Status Clean;Dry;Occlusive 10/16/24 1200 Number of days: 3 Peripheral IV 10/13/24 20 G Left;Anterior Forearm (Active) Site Assessment Clean;Dry;Intact 10/16/24 1200 Dressing Type Transparent 10/16/24 1200 Line Status No blood return;Flushed;Saline locked 10/16/24 1200 Dressing Status Clean;Dry;Occlusive 10/16/24 1200 Number of days: 3 Pacer Wires (Active) Pacer Wire Status Atrial and ventricular wires connected to pacer 10/16/24 1200 Site Assessment Clean;Dry;Intact 10/16/24 1200 How Pacer Wires are Secured Ventricular wires secured to dressing 10/16/24 1200 Dressing Status Clean;Dry;Intact 10/16/24 1200 Number of days: 3 Code Status: Full Code I spent 35 minutes in the professional and overall care of this patient. Petr Vigil MD Cosigned by Lashonda Beltrán MD at 10/16/2024 5:11 PM EST * TAM Ramírez - 10/16/2024 2:12 PM EST 10/16/24 1408 Discharge Planning Living Arrangements Spouse/significant other Support Systems Spouse/significant other;Children;Friends/neighbors Assistance Needed n/a Type of Residence Private residence Who is requesting discharge planning? Provider Home or Post Acute Services (TBD) Does the patient need discharge transport arranged? No - ICU TREATMENT PLAN: Patient presented to CICU from EP lab after undergoing elective Afib ablationcomplicated by CHB s/p TVP. - Payer: Medicare, [employer] . -Support System: Spouse, barry - Planned Disposition: Pending medical outcome and rehab recommendations. - Additional Information: SDOH and Social Work Discharge Planning assessments were completed with the patient. There were no SDOH issues identified. - Barriers to discharge: None at this time. SW will continue to follow. * Marion Carrillo MD - 10/14/2024 10:14 AM EST Subjective Data: No acute events overnight. Pt denies any chest pain or SOB. Tele is showing sinus rhythm in the 60s. Few episodes of pacing via screw-in lead. Objective Data: Last Recorded Vitals: Vitals: 10/14/24 0600 10/14/24 0700 10/14/24 0800 10/14/24 0900 BP: Pulse: 64 64 63 68 Resp: 18 18 11 19 Temp: 36.1 C (97 F) TempSrc: Temporal SpO2: 98% 98% 96% 96% Weight: Height: Last Labs: CBC - 10/14/2024: 6:00 AM 7.3 10.8 115 32.8 CMP - 10/14/2024: 6:00 AM 8.6 6.4 23 --- 1.0 3.9 3.7 17 62 PTT - 10/13/2024: 7:34 PM 1.1 12.6 133 No results found for: TROPHS, BNP, HGBA1C, LDLCALC, VLDL Last I/O: I/O last 3 completed shifts: In: 2240 (28 mL/kg) [P.O.:1240; I.V.:1000 (12.5 mL/kg)] Out: 605 (7.6 mL/kg) [Urine:600 (0.2 mL/kg/hr); Blood:5] Weight: 80 kg Past Cardiology Tests (Last 3 Years): EKG: ECG 12 lead (Clinic Performed) 09/13/2024 Echo: No results found for this or any previous visit from the past 1095 days. Ejection Fractions: No results found for: EF Cath: Cardiac Catheterization Procedure 10/13/2024 Stress Test: No results found for this or any previous visit from the past 1095 days. Cardiac Imaging: No results found for this or any previous visit from the past 1095 days. Inpatient Medications: Scheduled medications Medication Dose Route Frequency apixaban 5 mg oral BID levothyroxine 50 mcg oral Daily lidocaine 1 patch transdermal Daily melatonin 3 mg oral Daily PRN medications Medication acetaminophen Continuous Medications Medication Dose Last Rate Physical Exam: Gen: awake and alert, AAOx3 HEENT: normocephalic. CV: RRR. No murmurs, gallops, rubs. Rt internal jugular screw-in lead connected to pacing box. Groin sites are intact with no bleeding or hematoma. Pulm: clear to auscultation bilaterally. No coarse lung sounds Abd: soft, non-distended. Normal active bowel sounds Ext: warm and well-perfused. No LE edema Psych: appropriate affect Neuro: grossly intact sensation and motor functions. Assessment/Plan Ms Thomas is a 69 YOF with PMH of hypothyroidism, HTN, new afib s/p 2 failed DCCV on flecainidewho was admitted to CICU from EP lab after undergoing elective Afib ablation complicated by SND s/pscrew-in TVP. This morning, pt noted to have normal sinus activity with HR in 60s on EKG with 1st degree AVB. There are few episodes of pacing on Tele. Recommendations: - Pacing rate was decreased to 40 bmp to better assess pacing needs. - Continue anticoagulation with apixaban. - Continue to hold flecainide and all AV blocking agents. - Given return of normal sinus activity, will likely remove screw-in lead on Wednesday. - Please make pt NPO on Wednesday night. Thank you for this consultation. EP consult pager: [phone] (weekday 7AM-6PM, weekend 7AM-2PM, other times: [phone]) Peripheral IV 10/13/24 20 G Proximal;Right;Ventral Forearm (Active) Site Assessment Clean;Dry;Intact 10/14/24399 Dressing Type Transparent 10/14/24399 Line Status Flushed 10/14/24 040 Dressing Status Clean;Dry;Occlusive 10/14/24 040 Number of days: 1 Arterial Line 10/13/24 Left Radial (Active) Site Assessment Clean;Dry;Intact 10/14/24399 Line Status Pulsatile blood flow 10/14/24399 Art Line Waveform Appropriate 10/14/24399 Art Line Interventions Zeroed and calibrated;Leveled;Connections checked and tightened;Flushed per protocol 10/14/24399 Color/Movement/Sensation Capillary refill less than 3 sec;Distal pulses palpable 10/14/24399 Dressing Type Antimicrobial patch;Transparent 10/14/24399 Dressing Status Clean;Dry;Occlusive 10/14/24 040 Number of days: 1 Pacer Wires (Active) Pacer Wire Status Ventricular wires connected to pacer 10/14/24 08 Site Assessment Clean;Dry;Intact 10/14/24 08 How Pacer Wires are Secured Ventricular wires secured to dressing 10/14/24 08 Dressing Status Clean;Dry;Intact 10/14/24 08 Number of days: 1 Code Status: Full Code I spent 30 minutes in the professional and overall care of this patient. Marion Carrillo MD Cosigned by Lashonda Beltrán MD at 10/16/2024 8:23 AM EST documented in this [facility] Work Phone: 1(594) 437-275912-09-2024 Plan of care note* Care Plan - Mary Ktae Carrera RN - 10/16/2024 2:37 PM EST The patient's goals for the shift include no pain during stay The clinical goals for the shift include patient will remain hds throughout shift Problem: Skin Goal: Decreased wound size/increased tissue granulation at next dressing change Outcome: Progressing Goal: Participates in plan/prevention/treatment measures Outcome: Progressing Goal: Prevent/manage excess moisture Outcome: Progressing Goal: Prevent/minimize sheer/friction injuries Outcome: Progressing Goal: Promote/optimize nutrition Outcome: Progressing Goal: Promote skin healing Outcome: Progressing Problem: Pain - Adult Goal: Verbalizes/displays adequate comfort level or baseline comfort level Outcome: Progressing Problem: Safety - Adult Goal: Free from fall injury Outcome: Progressing Problem: Arrythmia/Dysrhythmia Goal: Lab values return to normal range Outcome: Progressing Goal: No evidence of post procedure complications Outcome: Progressing Goal: Promote self management Outcome: Progressing Goal: Serial ECG will return to baseline Outcome: Progressing Goal: Verbalize understanding of procedures/devices Outcome: Progressing Goal: Vital signs return to baseline Outcome: Progressing Goal: Care and maintenance of device (specify) Outcome: Progressing [facility]12-09-2024 Miscellaneous Notes* Care Plan - Mary Kate Carrera RN - 10/16/2024 2:37 PM EST The patient's goals for the shift include no pain during stay The clinical goals for the shift include patient will remain hds throughout shift Problem: Skin Goal: Decreased wound size/increased tissue granulation at next dressing change Outcome: Progressing Goal: Participates in plan/prevention/treatment measures Outcome: Progressing Goal: Prevent/manage excess moisture Outcome: Progressing Goal: Prevent/minimize sheer/friction injuries Outcome: Progressing Goal: Promote/optimize nutrition Outcome: Progressing Goal: Promote skin healing Outcome: Progressing Problem: Pain - Adult Goal: Verbalizes/displays adequate comfort level or baseline comfort level Outcome: Progressing Problem: Safety - Adult Goal: Free from fall injury Outcome: Progressing Problem: Arrythmia/Dysrhythmia Goal: Lab values return to normal range Outcome: Progressing Goal: No evidence of post procedure complications Outcome: Progressing Goal: Promote self management Outcome: Progressing Goal: Serial ECG will return to baseline Outcome: Progressing Goal: Verbalize understanding of procedures/devices Outcome: Progressing Goal: Vital signs return to baseline Outcome: Progressing Goal: Care and maintenance of device (specify) Outcome: Progressing * Care Plan - Kristi Palmer RN - 10/16/2024 4:27 AM EST The patient's goals for the shift include rest throughout shift The clinical goals for the shift include patient will remain hds throughout shift Problem: Skin Goal: Decreased wound size/increased tissue granulation at next dressing change Outcome: Progressing Flowsheets (Taken 10/16/2024425) Decreased wound size/increased tissue granulation at next dressing change: Promote sleep for wound healing Goal: Participates in plan/prevention/treatment measures Outcome: Progressing Flowsheets (Taken 10/16/2024425) Participates in plan/prevention/treatment measures: Elevate heels Goal: Prevent/manage excess moisture Outcome: Progressing Flowsheets (Taken 10/16/2024425) Prevent/manage excess moisture: Moisturize dry skin Goal: Prevent/minimize sheer/friction injuries Outcome: Progressing Flowsheets (Taken 10/16/2024425) Prevent/minimize sheer/friction injuries: Turn/reposition every 2 hours/use positioning/transfer devices HOB 30 degrees or less Complete micro-shifts as needed if patient unable. Adjust patient position to relieve pressure points, not a full turn Goal: Promote/optimize nutrition Outcome: Progressing Flowsheets (Taken 10/16/2024425) Promote/optimize nutrition: Offer water/supplements/favorite foods Goal: Promote skin healing Outcome: Progressing Flowsheets (Taken 10/16/2024425) Promote skin healing: Protective dressings over bony prominences Problem: Pain - Adult Goal: Verbalizes/displays adequate comfort level or baseline comfort level Outcome: Progressing Problem: Safety - Adult Goal: Free from fall injury Outcome: Progressing Problem: Arrythmia/Dysrhythmia Goal: Lab values return to normal range Outcome: Progressing Goal: No evidence of post procedure complications Outcome: Progressing Goal: Promote self management Outcome: Progressing Goal: Serial ECG will return to baseline Outcome: Progressing Goal: Verbalize understanding of procedures/devices Outcome: Progressing Goal: Vital signs return to baseline Outcome: Progressing Goal: Care and maintenance of device (specify) Outcome: Progressing * Care Plan - Nubia Benton RN - 10/15/2024 12:03 PM EST The patient's goals for the shift include The clinical goals for the shift include Patient will remain hemodynamically stable through the shift Over the shift, the patient did not make progress toward the following goals. Recommendations to address these barriers include Problem: Skin Goal: Decreased wound size/increased tissue granulation at next dressing change Outcome: Progressing Goal: Participates in plan/prevention/treatment measures Outcome: Progressing Goal: Prevent/manage excess moisture Outcome: Progressing Goal: Prevent/minimize sheer/friction injuries Outcome: Progressing Goal: Promote/optimize nutrition Outcome: Progressing Goal: Promote skin healing Outcome: Progressing Problem: Pain - Adult Goal: Verbalizes/displays adequate comfort level or baseline comfort level Outcome: Progressing Problem: Safety - Adult Goal: Free from fall injury Outcome: Progressing Problem: Arrythmia/Dysrhythmia Goal: Lab values return to normal range Outcome: Progressing Goal: No evidence of post procedure complications Outcome: Progressing Goal: Promote self management Outcome: Progressing Goal: Serial ECG will return to baseline Outcome: Progressing Goal: Verbalize understanding of procedures/devices Outcome: Progressing Goal: Vital signs return to baseline Outcome: Progressing Goal: Care and maintenance of device (specify) Outcome: Progressing * Care Plan - Paula Moore RN - 10/15/2024 3:55 AM EST Problem: Skin Goal: Decreased wound size/increased tissue granulation at next dressing change 10/15/2024354 by Paula Moore RN Outcome: Progressing 10/15/2024354 by Paula Moore RN Outcome: Progressing Goal: Participates in plan/prevention/treatment measures 10/15/2024354 by Paula Moore RN Outcome: Progressing 10/15/2024354 by Paula Moore RN Outcome: Progressing Goal: Prevent/manage excess moisture 10/15/2024354 by Paula Moore RN Outcome: Progressing 10/15/2024354 by Paula Moore RN Outcome: Progressing Goal: Prevent/minimize sheer/friction injuries 10/15/2024354 by Paula Moore RN Outcome: Progressing 10/15/2024354 by Paula Moore RN Outcome: Progressing Goal: Promote/optimize nutrition 10/15/2024354 by Paula Moore RN Outcome: Progressing 10/15/2024354 by Paula Moore RN Outcome: Progressing Goal: Promote skin healing 10/15/2024354 by Paula Moore RN Outcome: Progressing 10/15/2024354 by Paula Moore RN Outcome: Progressing Problem: Pain - Adult Goal: Verbalizes/displays adequate comfort level or baseline comfort level 10/15/2024354 by Paula Moore RN Outcome: Progressing 10/15/2024354 by Paula Moore RN Outcome: Progressing Problem: Safety - Adult Goal: Free from fall injury 10/15/2024354 by Paula Moore RN Outcome: Progressing 10/15/2024354 by Paula Moore RN Outcome: Progressing Problem: Arrythmia/Dysrhythmia Goal: Lab values return to normal range 10/15/2024354 by Paula Moore RN Outcome: Progressing 10/15/2024354 by Paula Moore RN Outcome: Progressing Goal: No evidence of post procedure complications 10/15/2024354 by Paula Moore RN Outcome: Progressing 10/15/2024354 by Paula Moore RN Outcome: Progressing Goal: Promote self management 10/15/2024354 by Paula Moore RN Outcome: Progressing 10/15/2024354 by Paula Moore RN Outcome: Progressing Goal: Serial ECG will return to baseline 10/15/2024354 by Paula Moore RN Outcome: Progressing 10/15/2024354 by Paula Moore RN Outcome: Progressing Goal: Verbalize understanding of procedures/devices 10/15/2024354 by Paula Moore RN Outcome: Progressing 10/15/2024354 by Paula Moore RN Outcome: Progressing Goal: Vital signs return to baseline 10/15/2024354 by Paula Moore RN Outcome: Progressing 10/15/2024354 by Paula Moore RN Outcome: Progressing Goal: Care and maintenance of device (specify) 10/15/2024354 by Paula Moore RN Outcome: Progressing 10/15/2024354 by Paula Moore RN Outcome: Progressing The clinical goals for the shift include Patient will remain hemodynamically stable through the shift * Care Plan - Wes Camargo RN - 10/14/2024 3:05 AM EST The clinical goals for the shift include Patient will remain hemodynamically stable through the shift Problem: Skin Goal: Decreased wound size/increased tissue granulation at next dressing change Outcome: Progressing Flowsheets (Taken 10/14/2024303) Decreased wound size/increased tissue granulation at next dressing change: Utilize specialty bed per algorithm Promote sleep for wound healing Protective dressings over bony prominences Goal: Participates in plan/prevention/treatment measures Outcome: Progressing Flowsheets (Taken 10/14/2024303) Participates in plan/prevention/treatment measures: Increase activity/out of bed for meals Elevate heels Goal: Prevent/manage excess moisture Outcome: Progressing Flowsheets (Taken 10/14/2024303) Prevent/manage excess moisture: Use wicking fabric (obtain order) Moisturize dry skin Follow provider orders for dressing changes Goal: Prevent/minimize sheer/friction injuries Outcome: Progressing Flowsheets (Taken 10/14/2024303) Prevent/minimize sheer/friction injuries: Utilize specialty bed per algorithm Use pull sheet HOB 30 degrees or less Complete micro-shifts as needed if patient unable. Adjust patient position to relieve pressure points, not a full turn Goal: Promote/optimize nutrition Outcome: Progressing Flowsheets (Taken 10/14/2024303) Promote/optimize nutrition: Offer water/supplements/favorite foods Discuss with provider if NPO > 2 days Consume > 50% meals/supplements Goal: Promote skin healing Outcome: Progressing Flowsheets (Taken 10/14/2024303) Promote skin healing: Turn/reposition every 2 hours/use positioning/transfer devices Rotate device position/do not position patient on device Assess skin/pad under line(s)/device(s) Problem: Pain - Adult Goal: Verbalizes/displays adequate comfort level or baseline comfort level Outcome: Progressing Problem: Safety - Adult Goal: Free from fall injury Outcome: Progressing * Post-Procedure Note - Adria Luciano MD - 10/13/2024 1:29 PM EST Physician Transition of Care Summary Invasive Cardiovascular Lab Procedure Date: 10/13/2024 Attending: * Lashonda Beltrán - Primary Resident/Fellow/Other [employer] Advisor: Surgeons and Role: * Adria Luciano MD - Fellow Indications: Pre-op Diagnosis * Unspecified atrial fibrillation (Multi) [I48.91] Post-procedure diagnosis: Post-op Diagnosis * Unspecified atrial fibrillation (Multi) [I48.91] Procedure(s): Ablation A-Fib 03166 - [place] COMPRE EP EVAL ABLTJ ATR FIB PULM VEIN ISOLATION Temporary Pacemaker Insertion Procedure Findings: Successful posterior wall isolation and pulmonary vein isolation Atrial tachycardia versus atypical flutter Sinus node dysfunction after cardioversion Description of the Procedure: Patient presented in atypical flutter versus atrial tachycardia with variable rates Under general anesthesia, 2 sheaths were placed in the right femoral vein, when sheath in the left femoral vein Transseptal with BRK and SLO sheath WACA was then performed with successful pulmonary vein isolation, as well as a posterior wall isolation was performed Patient was cardioverted when checking for isolation, it was noted that patient had a slow escape with a heart rate of 20-30 that appeared to be either a ventriclar or junctional escape with retrograde A. Protamine was then given after sheaths were pulled back into the right side. A temporary screw-in pacemaker was placed in the right ventricle through the right IJ. Complications: Sinus node dysfunction please Stents/Implants: Implants Pacemaker Lead, Capsurefix Novus, 58 Cm - [id number] - Implanted Inventory item: LEAD, CAPSUREFIX NOVUS, 58 CM Model/Cat number: 5076-58 Serial number: [id number] Straight Knife Cutter Machine: [employer] Lot number: [id number] Device identifier: [id number] Implant Date: 10/13/2024 GUDID Information Request status Successful Brand name: Capsurefix Novus Version/Model: 5076-58 Company name: [employer] MRI safety info as of 10/13/24: Labeling does not contain MRI Safety Information Contains dry or latex rubber: No GMDN P.T. name: Endocardial/interventricular septal pacing lead As of 10/13/2024 Status: Implanted Plan: -Admit to CICU -Continue apixaban 5 twice daily, starting tonight -2 hours bedrest and [id number] can be removed if no oozing -Rhythm checks throughout the weekend, potentially may need pacemaker if no return of rhythm -do not attempt any removal of the screw in lead without EP approval -start protonix 40 daily for 30 days -hold flecainide and other BB Estimated Blood Loss: 5 mL Anesthesia: General Anesthesia Staff: Anesthesiologist: Vincent Nix MD; Paola Del Angel MD E LEARNING MANAGER: IRWIN Rojas Any Specimen(s) Removed: No specimens collected during this procedure. Disposition: CICU Electronically signed by: Adria Luciano MD, 10/13/2024 5:23 PM Cosigned by Lashonda Beltrán MD at 10/13/2024 11:16 PM EST * Hospital Course - Huy Sun PA-C - 10/12/2024 11:17 AM EST documented in this [facility] Work Phone: 1(267) 786-656112-09-2024 Plan of care note* Care Plan - Kristi Palmer RN - 10/16/2024 4:27 AM EST The patient's goals for the shift include rest throughout shift The clinical goals for the shift include patient will remain hds throughout shift Problem: Skin Goal: Decreased wound size/increased tissue granulation at next dressing change Outcome: Progressing Flowsheets (Taken 10/16/2024425) Decreased wound size/increased tissue granulation at next dressing change: Promote sleep for wound healing Goal: Participates in plan/prevention/treatment measures Outcome: Progressing Flowsheets (Taken 10/16/2024425) Participates in plan/prevention/treatment measures: Elevate heels Goal: Prevent/manage excess moisture Outcome: Progressing Flowsheets (Taken 10/16/2024425) Prevent/manage excess moisture: Moisturize dry skin Goal: Prevent/minimize sheer/friction injuries Outcome: Progressing Flowsheets (Taken 10/16/2024425) Prevent/minimize sheer/friction injuries: Turn/reposition every 2 hours/use positioning/transfer devices HOB 30 degrees or less Complete micro-shifts as needed if patient unable. Adjust patient position to relieve pressure points, not a full turn Goal: Promote/optimize nutrition Outcome: Progressing Flowsheets (Taken 10/16/2024425) Promote/optimize nutrition: Offer water/supplements/favorite foods Goal: Promote skin healing Outcome: Progressing Flowsheets (Taken 10/16/2024425) Promote skin healing: Protective dressings over bony prominences Problem: Pain - Adult Goal: Verbalizes/displays adequate comfort level or baseline comfort level Outcome: Progressing Problem: Safety - Adult Goal: Free from fall injury Outcome: Progressing Problem: Arrythmia/Dysrhythmia Goal: Lab values return to normal range Outcome: Progressing Goal: No evidence of post procedure complications Outcome: Progressing Goal: Promote self management Outcome: Progressing Goal: Serial ECG will return to baseline Outcome: Progressing Goal: Verbalize understanding of procedures/devices Outcome: Progressing Goal: Vital signs return to baseline Outcome: Progressing Goal: Care and maintenance of device (specify) Outcome: Progressing [facility]12-08-2024 Plan of care note* Care Plan - Nubia Benton RN - 10/15/2024 12:03 PM EST The patient's goals for the shift include The clinical goals for the shift include Patient will remain hemodynamically stable through the shift Over the shift, the patient did not make progress toward the following goals. Recommendations to address these barriers include Problem: Skin Goal: Decreased wound size/increased tissue granulation at next dressing change Outcome: Progressing Goal: Participates in plan/prevention/treatment measures Outcome: Progressing Goal: Prevent/manage excess moisture Outcome: Progressing Goal: Prevent/minimize sheer/friction injuries Outcome: Progressing Goal: Promote/optimize nutrition Outcome: Progressing Goal: Promote skin healing Outcome: Progressing Problem: Pain - Adult Goal: Verbalizes/displays adequate comfort level or baseline comfort level Outcome: Progressing Problem: Safety - Adult Goal: Free from fall injury Outcome: Progressing Problem: Arrythmia/Dysrhythmia Goal: Lab values return to normal range Outcome: Progressing Goal: No evidence of post procedure complications Outcome: Progressing Goal: Promote self management Outcome: Progressing Goal: Serial ECG will return to baseline Outcome: Progressing Goal: Verbalize understanding of procedures/devices Outcome: Progressing Goal: Vital signs return to baseline Outcome: Progressing Goal: Care and maintenance of device (specify) Outcome: Progressing [facility]12-08-2024 Plan of care note* Care Plan - Paula Moore RN - 10/15/2024 3:55 AM EST Problem: Skin Goal: Decreased wound size/increased tissue granulation at next dressing change 10/15/2024 035 by Paula Moore RN Outcome: Progressing 10/15/2024354 by Paula Moore RN Outcome: Progressing Goal: Participates in plan/prevention/treatment measures 10/15/2024354 by Paula Moore RN Outcome: Progressing 10/15/2024354 by Paula Moore RN Outcome: Progressing Goal: Prevent/manage excess moisture 10/15/2024354 by Paula Moore RN Outcome: Progressing 10/15/2024354 by Paula Moore RN Outcome: Progressing Goal: Prevent/minimize sheer/friction injuries 10/15/2024354 by Paula Moore RN Outcome: Progressing 10/15/2024354 by Paula Moore RN Outcome: Progressing Goal: Promote/optimize nutrition 10/15/2024354 by Paula Moore RN Outcome: Progressing 10/15/2024354 by Paula Moore RN Outcome: Progressing Goal: Promote skin healing 10/15/2024354 by Paula Moore RN Outcome: Progressing 10/15/2024354 by Paula Moore RN Outcome: Progressing Problem: Pain - Adult Goal: Verbalizes/displays adequate comfort level or baseline comfort level 10/15/2024354 by Paula Moore RN Outcome: Progressing 10/15/2024354 by Paula Moore RN Outcome: Progressing Problem: Safety - Adult Goal: Free from fall injury 10/15/2024354 by Paula Moore RN Outcome: Progressing 10/15/2024354 by Paula Moore RN Outcome: Progressing Problem: Arrythmia/Dysrhythmia Goal: Lab values return to normal range 10/15/2024354 by Paula Moore RN Outcome: Progressing 10/15/2024354 by Paula Moore RN Outcome: Progressing Goal: No evidence of post procedure complications 10/15/2024354 by Paula Moore RN Outcome: Progressing 10/15/2024354 by Paula Moore RN Outcome: Progressing Goal: Promote self management 10/15/2024354 by Paula Moore RN Outcome: Progressing 10/15/2024354 by Paula Moore RN Outcome: Progressing Goal: Serial ECG will return to baseline 10/15/2024354 by Paula Moore RN Outcome: Progressing 10/15/2024354 by Paula Moore RN Outcome: Progressing Goal: Verbalize understanding of procedures/devices 10/15/2024354 by Paula Moore RN Outcome: Progressing 10/15/2024354 by Paula Moore RN Outcome: Progressing Goal: Vital signs return to baseline 10/15/2024354 by Paula Moore RN Outcome: Progressing 10/15/2024354 by Paula Moore RN Outcome: Progressing Goal: Care and maintenance of device (specify) 10/15/2024354 by Paula Moore RN Outcome: Progressing 10/15/2024354 by Paula Moore RN Outcome: Progressing The clinical goals for the shift include Patient will remain hemodynamically stable through the shift [facility]12-07-2024 Plan of care note* Care Plan - Wes Camargo RN - 10/14/2024 3:05 AM EST The clinical goals for the shift include Patient will remain hemodynamically stable through the shift Problem: Skin Goal: Decreased wound size/increased tissue granulation at next dressing change Outcome: Progressing Flowsheets (Taken 10/14/2024 0304) Decreased wound size/increased tissue granulation at next dressing change: Utilize specialty bed per algorithm Promote sleep for wound healing Protective dressings over bony prominences Goal: Participates in plan/prevention/treatment measures Outcome: Progressing Flowsheets (Taken 10/14/2024 0304) Participates in plan/prevention/treatment measures: Increase activity/out of bed for meals Elevate heels Goal: Prevent/manage excess moisture Outcome: Progressing Flowsheets (Taken 10/14/2024 0304) Prevent/manage excess moisture: Use wicking fabric (obtain order) Moisturize dry skin Follow provider orders for dressing changes Goal: Prevent/minimize sheer/friction injuries Outcome: Progressing Flowsheets (Taken 10/14/2024303) Prevent/minimize sheer/friction injuries: Utilize specialty bed per algorithm Use pull sheet HOB 30 degrees or less Complete micro-shifts as needed if patient unable. Adjust patient position to relieve pressure points, not a full turn Goal: Promote/optimize nutrition Outcome: Progressing Flowsheets (Taken 10/14/2024303) Promote/optimize nutrition: Offer water/supplements/favorite foods Discuss with provider if NPO > 2 days Consume > 50% meals/supplements Goal: Promote skin healing Outcome: Progressing Flowsheets (Taken 10/14/2024303) Promote skin healing: Turn/reposition every 2 hours/use positioning/transfer devices Rotate device position/do not position patient on device Assess skin/pad under line(s)/device(s) Problem: Pain - Adult Goal: Verbalizes/displays adequate comfort level or baseline comfort level Outcome: Progressing Problem: Safety - Adult Goal: Free from fall injury Outcome: Progressing [facility] Work Phone: 1(313) 883-979812-06-2024 Note* Post-Procedure Note - Adria Luciano MD - 10/13/2024 1:29 PM EST Physician Transition of Care Summary Invasive Cardiovascular Lab Procedure Date: 10/13/2024 Attending: Evans Beltrán - Primary Resident/Fellow/Other [employer] Advisor: Surgeons and Role: * Adria Luciano MD - Fellow Indications: Pre-op Diagnosis * Unspecified atrial fibrillation (Multi) [I48.91] Post-procedure diagnosis: Post-op Diagnosis * Unspecified atrial fibrillation (Multi) [I48.91] Procedure(s): Ablation A-Fib 43544 - IL COMPRE EP EVAL ABLTJ ATR FIB PULM VEIN ISOLATION Temporary Pacemaker Insertion Procedure Findings: Successful posterior wall isolation and pulmonary vein isolation Atrial tachycardia versus atypical flutter Sinus node dysfunction after cardioversion Description of the Procedure: Patient presented in atypical flutter versus atrial tachycardia with variable rates Under general anesthesia, 2 sheaths were placed in the right femoral vein, when sheath in the left femoral vein Transseptal with BRK and SLO sheath WACA was then performed with successful pulmonary vein isolation, as well as a posterior wall isolation was performed Patient was cardioverted when checking for isolation, it was noted that patient had a slow escape with a heart rate of 20-30 that appeared to be either a ventriclar or junctional escape with retrograde A. Protamine was then given after sheaths were pulled back into the right side. A temporary screw-in pacemaker was placed in the right ventricle through the right IJ. Complications: Sinus node dysfunction please Stents/Implants: Implants Pacemaker Lead, Capsurefix Novus, 58 Cm - [id number] - Implanted Inventory item: LEAD, CAPSUREFIX NOVUS, 58 CM Model/Cat number: 5076-58 Serial number: [id number] Straight Knife Cutter Machine: [employer] Lot number: [id number] Device identifier: [id number] Implant Date: 10/13/2024 GUDID Information Request status Successful Brand name: Capsurefix Novus Version/Model: 5076-58 Company name: [employer] MRI safety info as of 10/13/24: Labeling does not contain MRI Safety Information Contains dry or latex rubber: No GMDN P.T. name: Endocardial/interventricular septal pacing lead As of 10/13/2024 Status: Implanted Plan: -Admit to CICU -Continue apixaban 5 twice daily, starting tonight -2 hours bedrest and [id number] can be removed if no oozing -Rhythm checks throughout the weekend, potentially may need pacemaker if no return of rhythm -do not attempt any removal of the screw in lead without EP approval -start protonix 40 daily for 30 days -hold flecainide and other BB Estimated Blood Loss: 5 mL Anesthesia: General Anesthesia Staff: Anesthesiologist: Vincent Nix MD; Paola Del Angel MD E LEARNING MANAGER: Jarred Guerrero APRN-E LEARNING MANAGER Any Specimen(s) Removed: No specimens collected during this procedure. Disposition: CICU Electronically signed by: Adria Luciano MD, 10/13/2024 5:23 PM Cosigned by Lashonda Beltrán MD at 10/13/2024 11:16 PM EST [facility] Work Phone: [phone]) 746-118212-06-2024 Attending History and physical note* Adria Luciano MD - 10/13/2024 12:41 PM EST H&P reviewed. The patient was examined and there are no changes to the H&P. Source Note - Lashonda Beltrán MD - 09/13/2024 1:00 PM EST Referred by Lashonda Mosqueda MD provider found for Chief Complaint Patient presents with Atrial Fibrillation Radha Thomas is a 69 y.o. year old female patient with h/o hypothyroidism, newly diagnosed A Fib. Underwent 2 DCC attempts and treatment with Flecainide although had recurrent A Fib. Was referred to me for treatment options evaluation. PMHx/PSHx: As above FamHx: unremarkable Allergies: No Known Allergies Review of Systems Constitutional: not feeling tired. Eyes: no eyesight problems. ENT: no hearing loss and no nosebleeds. Cardiovascular: no intermittent leg claudication and as noted in HPI. Respiratory: no chronic cough and no shortness of breath. Gastrointestinal: no change in bowel habits and no blood in stools. Genitourinary: no urinary frequency and no hematuria. Skin: no skin rashes. Neurological: no seizures and no frequent falls. Psychiatric: no depression and not suicidal. All other systems have been reviewed and are negative for complaint. Outpatient Medications: Current Outpatient Medications Medication Instructions apixaban (ELIQUIS) 5 mg, 2 times daily estradiol (ESTRACE) 0.5 mg flecainide (Tambocor) 100 mg tablet 1 tablet, Every 12 hours scheduled (30,1830) levothyroxine (Synthroid, Levoxyl) 50 mcg tablet 1 tablet, Daily (30) lisinopril 10 mg tablet 1 tablet, Daily (30) metoprolol tartrate (Lopressor) 25 mg tablet 1 tablet, Every 12 hours scheduled (30,1830) triamcinolone (Kenalog) 0.1 % cream Apply topically. PRN Last Recorded Vitals: 09/13/2024 12:56 PM Vitals Systolic 144 Diastolic 83 Heart Rate 73 Height (in) 1.664 m (5' 5.5) Weight (lb) 173 BMI 28.35 kg/m2 BSA (m2) 1.9 m2 Visit Report Report Visit Vitals BP 144/83 (BP Location: Left arm) Pulse 73 Ht 1.664 m (5' 5.5) Wt 78.5 kg (173 lb) BMI 28.35 kg/m Smoking Status Never BSA 1.9 m Physical Exam: Constitutional: alert and in no acute distress. Eyes: no erythema, swelling or discharge from the eye . Neck: neck is supple, symmetric, trachea midline, no masses and no thyromegaly . Pulmonary: no increased work of breathing or signs of respiratory distress and lungs clear to auscultation. Cardiovascular: carotid pulses 2+ bilaterally with no bruit , JVP was normal, no thrills , regular rhythm, normal S1 and S2, no murmurs , pedal pulses 2+ bilaterally and no edema . Abdomen: abdomen non-tender, no masses and no hepatomegaly . Skin: skin warm and dry, normal skin turgor . Psychiatric judgment and insight is normal and oriented to person, place and time . Assessment/Plan Problem List Items Addressed This Visit None Visit Diagnoses Codes Atrial fibrillation, unspecified type (Multi) - Primary I48.91 Relevant Orders ECG 12 lead (Clinic Performed) Preop testing Z01.818 Radha Thomas is a 69 y.o. year old female patient with h/o hypothyroidism, newly diagnosed A Fib. Underwent 2 DCC attempts and treatment with Flecainide although had recurrent A Fib. Was referred to me for treatment options evaluation. Her current EG shows A Fib with narrow QRS and HR of 73 bpm. Recent echocardiogram showed preservedLVEF, normal LA. She is very symptomatic with the A Fib. I discussed with the patient her treatmentoptions including other Aad vs RF ablation. All the R/B/A were discussed with the patient who expressed understanding and agrees to proceed with ablation. Lashonda Beltrán MD Cardiac Electrophysiology Thank you very much for allowing me to participate in the care of this pleasant patient. Please do not hesitate to contact me with any further questions or concerns regarding his care. 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 The patient was examined and there are no changes to the H&P. Source Note - Lashonda Beltrán MD - 09/13/2024 1:00 PM EST Referred by Lashonda Mosqueda MD provider found for Chief Complaint Patient presents with Atrial Fibrillation Radha Thomas is a 69 y.o. year old female patient with h/o hypothyroidism, newly diagnosed A Fib. Underwent 2 DCC attempts and treatment with Flecainide although had recurrent A Fib. Was referred to me for treatment options evaluation. PMHx/PSHx: As above FamHx: unremarkable Allergies: No Known Allergies Review of Systems Constitutional: not feeling tired. Eyes: no eyesight problems. ENT: no hearing loss and no nosebleeds. Cardiovascular: no intermittent leg claudication and as noted in HPI. Respiratory: no chronic cough and no shortness of breath. Gastrointestinal: no change in bowel habits and no blood in stools. Genitourinary: no urinary frequency and no hematuria. Skin: no skin rashes. Neurological: no seizures and no frequent falls. Psychiatric: no depression and not suicidal. All other systems have been reviewed and are negative for complaint. Outpatient Medications: Current Outpatient Medications Medication Instructions apixaban (ELIQUIS) 5 mg, 2 times daily estradiol (ESTRACE) 0.5 mg flecainide (Tambocor) 100 mg tablet 1 tablet, Every 12 hours scheduled (0630,1830) levothyroxine (Synthroid, Levoxyl) 50 mcg tablet 1 tablet, Daily (0630) lisinopril 10 mg tablet 1 tablet, Daily (0630) metoprolol tartrate (Lopressor) 25 mg tablet 1 tablet, Every 12 hours scheduled (0630,1830) triamcinolone (Kenalog) 0.1 % cream Apply topically. PRN Last Recorded Vitals: 09/13/2024 12:56 PM Vitals Systolic 144 Diastolic 83 Heart Rate 73 Height (in) 1.664 m (5' 5.5) Weight (lb) 173 BMI 28.35 kg/m2 BSA (m2) 1.9 m2 Visit Report Report Visit Vitals BP 144/83 (BP Location: Left arm) Pulse 73 Ht 1.664 m (5' 5.5) Wt 78.5 kg (173 lb) BMI 28.35 kg/m Smoking Status Never BSA 1.9 m Physical Exam: Constitutional: alert and in no acute distress. Eyes: no erythema, swelling or discharge from the eye . Neck: neck is supple, symmetric, trachea midline, no masses and no thyromegaly . Pulmonary: no increased work of breathing or signs of respiratory distress and lungs clear to auscultation. Cardiovascular: carotid pulses 2+ bilaterally with no bruit , JVP was normal, no thrills , regular rhythm, normal S1 and S2, no murmurs , pedal pulses 2+ bilaterally and no edema . Abdomen: abdomen non-tender, no masses and no hepatomegaly . Skin: skin warm and dry, normal skin turgor . Psychiatric judgment and insight is normal and oriented to person, place and time . Assessment/Plan Problem List Items Addressed This Visit None Visit Diagnoses Codes Atrial fibrillation, unspecified type (Multi) - Primary I48.91 Relevant Orders ECG 12 lead (Clinic Performed) Preop testing Z01.818 Radha Thomas is a 69 y.o. year old female patient with h/o hypothyroidism, newly diagnosed A Fib. Underwent 2 DCC attempts and treatment with Flecainide although had recurrent A Fib. Was referred to me for treatment options evaluation. Her current EG shows A Fib with narrow QRS and HR of 73 bpm. Recent echocardiogram showed preservedLVEF, normal LA. She is very symptomatic with the A Fib. I discussed with the patient her treatmentoptions including other Aad vs RF ablation. All the R/B/A were discussed with the patient who expressed understanding and agrees to proceed with ablation. Lashonda Beltrán MD Cardiac Electrophysiology Thank you very much for allowing me to participate in the care of this pleasant patient. Please do not hesitate to contact me with any further questions or concerns regarding his care. 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 Thomas, You were admitted to the cardiac intensive care unit after an elective atrial fibrillation ablationthat was complicated by slow heart rates potentially in the setting of the ablation. A temporary pacing device was placed due to concerns that her heart rate would be too low. He was sent to the [facility] given this temporary pacing device. Over your ICU stay, you required minimal pacingfrom this device and your heart rhythm was normal and conducting appropriately. Unfortunately, we stayed in normal sinus rhythm for short period of time but reverted back into atrial fibrillation. You had an episode of chest pain overnight on 10/15 that is likely due to the inflammatory state causedby the ablation to your heart. You had a brief rise in your cardiac enzymes that eventually downtrended and your pain subsided with the addition of a medication called colchicine. Temporary pacing device was removed on the day of discharge and he was able to walk around the unit without issue. Follow-up as scheduled with your furniture and bedding inspector, their office will call you and schedule you for your follow up appointment. Medications at Discharge: -Pantoprazole 40 mg twice daily (acid suppression medication) -Colchicine 0.6 mg twice daily for the next 21 days -Continue taking your home Metoprolol 25 mg twice daily -STOP TAKING YOUR HOME FLECAINIDE, PLEASE FOLLOW UP WITH YOUR BRANCH SERVICE SPECIALIST TO DISCUSS RESTARTING MEDICATION. INSTRUCTIONS AFTER ABLATION PROCEDURE: * You will need to continue blood thinner (Eliquis every 12 hours) until instructed otherwise. It is important not to interrupt blood thinner for any reason (other than an emergency) during the first30 days after ablation. * You will be on Pantoprazole (a heartburn medicine) for 4 weeks to protect the esophagus as it canbecome irritated with ablation. It is very important that you take this medication. * All other medications will generally remain the same unless you are told otherwise. Resume takingyour home medications today (including blood thinner) as listed on the discharge instructions. * In the first week post-ablation you should take it easy. No heavy lifting or heavy exercise, no treadmill. You can use the stairs if needed but go slowly and minimize the number of times up and down. * Some minor bruising is common at each groin access site with minor soreness as if you had banged the area. Bruising may occasionally be seen to extend down the leg. This is normal as is an occasional small quarter sized bump in the area. If larger swelling or more significant pain occurs at the area, please contact the office or go the nearest Emergency Room. * You may have some minor chest pain for the next week or so. The pain will often worsen with a deep breath and be better when leaning forward. This is pericardial chest pain from the ablation and isgenerally not of concern. It should resolve within a week although it might increase for a day or so after the ablation. * If you develop unexplained fevers exceeding 100 degrees anytime within the first 3 weeks post-ablation, you need to contact the office. Low grade fevers of around 99 degrees are common in the firstday or so post-ablation. * Atrial fibrillation (AFib) can recur in all patients who undergo this ablation for up to 4-8 weeks post-ablation. The ablation itself can cause inflammation (pericarditis) in the atria and this cancause AFib. Some patients will actually experience an increased amount of atrial arrhythmia early after ablation. Approximately 1/3 of patients will have this early recurrence of AFib. Medications should be continued and your heart rate controlled. Nothing else needs be done initially except waiting as in many cases these episodes of AFib will prove self limited. * Continue to follow up with your primary care physician, primary pharmacy technician infusion, and any other specialists you normally see. * No driving for 2 days post procedure (IF you were driving prior to procedure) *Diet: Heart healthy Call Provider If: Breathing faster than normal. Fever of 100.4 F (38 C) or higher. Chills. Any new concerning symptoms. Passing out. Patient Instructions, Next 24 hours: DO NOT drive a car, operate machinery or power tools. It is recommended that a responsible adult bewith you for the first 24 hours. DO NOT drink any alcoholic drinks or take any non-prescriptive medications that contain alcohol forthe first 24 hours. DO NOT make any important decisions for the first 24 hours. Activity: You are advised to go directly home from the hospital. DO NOT lift anything heavier than 10 pounds for one week, this allows for proper healing of the groin. No excessive exercise or treadmill use for one week. You may walk and do stairs, slowly. No sexual activities for 24 hours after you arrive home. Wound Care: If slight bleeding should occur at groin site, lie down and have someone apply firm pressure just above the puncture site for 5 minutes. If it continues or is profuse, call 911. Always notify your doctor if bleeding occurs. Keep site clean and dry. Let air dry or you may use a simple bandaid. Gently cleanse the puncture site in your groin with soap and water only. You may experience some tenderness, bruising or minimal inflammation. If you have any concerns, youmay contact the EP Lab or if any of these symptoms become excessive, contact your furniture and bedding inspector or go to the emergency room. No tub baths, soaking, hot tubs, or swimming for one week. May shower the next day after your procedure. Other Instructions: If you have any questions about the effects of the sedative drugs or groin care, please call the physician who performed your procedure. FOLLOW UP: 1) Primary care physician 2 weeks--call to schedule 2) Dr Lashonda Beltrán ( Electrophysiology) 6 weeks after ablation as scheduled documented in this [facility] Work Phone: [phone]) 776-292812-05-2024 Hospital Note* Hospital Course - Huy Sun PA-C - 10/12/2024 11:17 AM EST [facility] Work Phone: [phone]) 878-991911-06-2024 History of Present illness Narrative* Lashonda Beltrán MD - 09/13/2024 1:00 PM EST Referred by Lashonda Mosqueda MD provider found for Chief Complaint Patient presents with Atrial Fibrillation Radha Thomas is a 69 y.o. year old female patient with h/o hypothyroidism, newly diagnosed A Fib. Underwent 2 DCC attempts and treatment with Flecainide although had recurrent A Fib. Was referred to me for treatment options evaluation. PMHx/PSHx: As above FamHx: unremarkable Allergies: No Known Allergies Review of Systems Constitutional: not feeling tired. Eyes: no eyesight problems. ENT: no hearing loss and no nosebleeds. Cardiovascular: no intermittent leg claudication and as noted in HPI. Respiratory: no chronic cough and no shortness of breath. Gastrointestinal: no change in bowel habits and no blood in stools. Genitourinary: no urinary frequency and no hematuria. Skin: no skin rashes. Neurological: no seizures and no frequent falls. Psychiatric: no depression and not suicidal. All other systems have been reviewed and are negative for complaint. Outpatient Medications: Current Outpatient Medications Medication Instructions apixaban (ELIQUIS) 5 mg, 2 times daily estradiol (ESTRACE) 0.5 mg flecainide (Tambocor) 100 mg tablet 1 tablet, Every 12 hours scheduled (0630,1830) levothyroxine (Synthroid, Levoxyl) 50 mcg tablet 1 tablet, Daily (0630) lisinopril 10 mg tablet 1 tablet, Daily (0630) metoprolol tartrate (Lopressor) 25 mg tablet 1 tablet, Every 12 hours scheduled (0630,1830) triamcinolone (Kenalog) 0.1 % cream Apply topically. PRN Last Recorded Vitals: 09/13/2024 12:56 PM Vitals Systolic 144 Diastolic 83 Heart Rate 73 Height (in) 1.664 m (5' 5.5) Weight (lb) 173 BMI 28.35 kg/m2 BSA (m2) 1.9 m2 Visit Report Report Visit Vitals BP 144/83 (BP Location: Left arm) Pulse 73 Ht 1.664 m (5' 5.5) Wt 78.5 kg (173 lb) BMI 28.35 kg/m Smoking Status Never BSA 1.9 m Physical Exam: Constitutional: alert and in no acute distress. Eyes: no erythema, swelling or discharge from the eye . Neck: neck is supple, symmetric, trachea midline, no masses and no thyromegaly . Pulmonary: no increased work of breathing or signs of respiratory distress and lungs clear to auscultation. Cardiovascular: carotid pulses 2+ bilaterally with no bruit , JVP was normal, no thrills , regular rhythm, normal S1 and S2, no murmurs , pedal pulses 2+ bilaterally and no edema . Abdomen: abdomen non-tender, no masses and no hepatomegaly . Skin: skin warm and dry, normal skin turgor . Psychiatric judgment and insight is normal and oriented to person, place and time . Assessment/Plan Problem List Items Addressed This Visit None Visit Diagnoses Codes Atrial fibrillation, unspecified type (Multi) - Primary I48.91 Relevant Orders ECG 12 lead (Clinic Performed) Preop testing Z01.818 Radha Thomas is a 69 y.o. year old female patient with h/o hypothyroidism, newly diagnosed A Fib. Underwent 2 DCC attempts and treatment with Flecainide although had recurrent A Fib. Was referred to me for treatment options evaluation. Her current EG shows A Fib with narrow QRS and HR of 73 bpm. Recent echocardiogram showed preservedLVEF, normal LA. She is very symptomatic with the A Fib. I discussed with the patient her treatmentoptions including other Aad vs RF ablation. All the R/B/A were discussed with the patient who expressed understanding and agrees to proceed with ablation. Lashonda Bletrán MD Cardiac Electrophysiology Thank you very much for allowing me to participate in the care of this pleasant patient. Please do not hesitate to contact me with any further questions or concerns regarding his care. 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 David Anderson MD Status[place] [facility] [place]: [facility] History and Physical Date of Admission: 07/13/24 Radha Thomas 69-year-old lady who presents for an outpatient cardioversion. She says that it was unbeknownst to her and she had this unusual feeling with palpitations and fluttering heartbeat. They had been going on for a few days when she saw you and at the time she saw you an EKG that was done did suggest that she was in atrial fibrillation with a rate of 96 bpm. Blood work was done which demonstrated a normal lipid profile as well as TSH. She was put on a beta- clemente and anticoagulation with a VHI7LD2-MDWk score of 3. She underwent DC cardioversion in April of this year which was successful for a few weeks apparently but she feels that she is back in atrial fibrillation. She did have a stress test on April 24 with demonstrated no evidence of ischemia. Her physical exam today demonstrates clear lung garza irregular rate and rhythm and no pedal edema and her electrocardiogram does confirm that she is in atrial fibrillation. Intake Vital Signs Intake Visit Reasons: [facility] Commercial Driver Required: No Accompanied by: Is patient in pain?: No Allergies No Known Allergies Allergy (Verified 06/09/24 10:57) Medications: See EMR Have you fallen in the past year?: No [facility] Medical History History of cardioversion Afib Palpitations Thyroid disease Low iron Hypertension History of benign breast biopsy History of meningioma Surgical History History of mandibular surgery History of hysterectomy History of D C History of tonsillectomy and adenoidectomy Social History Smoking Status: Never smoker alcohol intake: current alcohol intake frequency: holidays/special occasions only ROS Const Const: Positive for fatigue; Negative for weakness, headache(s), daytime sleepiness or difficulty sleeping ENT ENT: Negative for headache(s), dizziness or Nosebleed/epistaxis Cardio Chest Pain: No Palpitations: Yes (mostly in the evenings) feels like its: irregular Edema: None Resp Respiratory: Negative for SOB with activity, SOB at rest, SOB orthopnea SOB lying down or Cough GI GI: Negative nausea, vomiting or heartburn Neuro Neuro: Negative for dizziness, lightheadedness, near syncope, headache(s) or weakness Endo Endo: Positive for fatigue Cardiology Exam Const Appearance: cooperative, healthy appearing, comfortable, no acute distress and well developed Orientation: alert, awake and oriented x3 Head Head: normal to inspection Ears: hearing grossly normal bilaterally Nose: external nose normal Face and Sinus: face symmetric Mouth: oral mucosae normal, lip normal and moist mucous membranes Eyes General: appearance normal, both eyes and all related structures Eyelids: eyelids normal Conjunctivae: conjunctivae normal Pupils: PERRL EOM: EOM intact bilaterally Neck Neck: normal visual inspection and trachea midline; Negative no JVD Carotids: Negative bruit Chest Chest inspection: normal inspection of the chest Auscultation: Bilateral: Clear to Auscultation Cardio Palpation: normal PMI Rhythm: irregularly irregular Heart sounds: S1 normal and S2 normal; Negative rub, gallop or murmur GI GI: soft, no hepatosplenomegaly and bowel sounds present Neuro General: patient alert, patient awake, patient oriented x3 and CN's II-XI intact bilaterally Extremities Pulses: Normal: Right Posterior Tibial Pulse, Left Posterior Tibial Pulse, Right Radial Pulse and Left Radial Pulse Lower Extremity Edema: None: Bilateral Psych Psychological: normal affect Supplemental Info Supplemental Information Echocardiogram 02/08/2024: Normal LV size. Left ventricular systolic function is normal. The estimated ejection fraction is 60 %. Pulmonary artery systolic pressure is 34 mmHg. Structurally normal valves. Stress Test 04/24/24 Conclusion: Normal pharmacologic myocardial perfusion stress test. Preserved ejection fraction. Assessment and Plan Assessment and Plan (1) Afib: Status: Acute Plan: It does appear the patient's atrial fibrillation is persistent. She will continue with her metoprolol and her Eliquis. She does have a [id number] of 3. Stress test was noted to be normal. At her most recent office visit, she was started on flecainide 100 mg p.o. twice daily. She will proceed with cardioversion. If not successful, will consider EP evaluation to cons (more content not included)...[facility]08-21-2023 Discharge summary Author Troy Carvalho [facility] June 28, 2023 7:40am Note Date/Time June 28, 2023 7: 40am [facility] Medical Records Department [address] [place] [address] Discharge Summary 06/28/23 0739 MR#: [id number] Acct: [id number] Name: RADHA THOMAS Rep #:[id number] : 1955 67 From: Troy Carvalho MD PCP: Dr. Connor Anderson MD Status: [facility] Location: [place] [address] Providers Primary Care Physician: Dr. Connor Anderson MD Reason For Visit: ENDOSCOPIC INTRANASAL Medications at Discharge Home Medications biotin 10,000 mcg capsule 10,000 mcg PO DAILY 06/21/23 calcium carbonate 600 mg-vitamin D3 5 mcg (200 unit) capsule (Calcium 600 + D(3)) 2 cap PO DAILY 06/21/23 estradiol 0.5 mg tablet 0.25 mg PO Q4D 06/21/23 levothyroxine 50 mcg tablet 50 mcg PO DAILY 06/21/23 lisinopril 10 mg tablet 10 mg PO DAILY 06/21/23 Weight / BMI Weight Weight: 74.8 kg Body Mass Index (BMI) 27.0 ABG / Lab / Microbiology Data 06/28/23 06:40 06/22/23 08:34 Laboratory: Laboratory Results - last 24 hr 06/28/23 06:40: WBC 5.3, RBC 3.96 L, Hgb 11.5 L, Hct 35.4 L, MCV 89.4, MCH 29.0,MCHC 32.5, RDW Std Deviation 39.9, RDW Coeff of Antony 12.2, Plt Count 174, MPV 11.4 D/C Instructions Discharge Diet: No restrictions Discharge Activity: - (NO NOSE BLOWING) Additional Dressing/Incision Instructions: START SALINE IRRIGATION (SINUS RINSE KIT) 4X/DAY ON 06/29/23 Please Follow Up With: Troy Carvalho MD When: NEXT WEEK Meaningful Use Info Meaningful Use Diagnoses (Choose all that apply): None applicable Discharge Plan Admission Attending Provider: Troy Carvalho Primary Care Provider: Connor Anderson Discharge Orders/Prescriptions Prescriptions: No Action levothyroxine 50 mcg tablet 50 mcg PO DAILY Patient Comments: TAKE 1 TABLET BY MOUTH EVERY DAY lisinopril 10 mg tablet 10 mg PO DAILY estradiol 0.5 mg tablet 0.25 mg PO Q4D Patient Comments: 1/2 (ONE HALF) TABLET PER VAGINA TWICE WEEKLY AT BEDTIME Calcium 600 + D(3) 600 mg-5 mcg (200 unit) capsule 2 cap PO DAILY biotin 10,000 mcg capsule 10,000 mcg PO DAILY Referrals / Follow Up: Connor Anderson MD [Primary Care Provider] - Disposition Disposition (needs filled in before D/C Order can be placed): Home, Self Care 06/28/23 0740 <Electronically signed by Troy Carvalho MD> Cosigner Signature (if applicable): CC: Dr. Connor Anderson MD; Dr. Troy Carvalho MD~ Signed [facility] Work Phone: 1(570) 216-310908-21-2023 [facility] Evaluation noteNo assessment information availableProm[facility] Work Phone: Evaluation note* Diagnosis Onset Date Resolution Status Afib acute Hypertension chronic [facility] Work Phone: Evaluation note* Diagnosis Atrial fibrillation, unspecified type (Multi)- Primary Preop testing Unspecified pre-operative examination documented in this encounter [facility] Work Phone: Evaluation note* Diagnosis Heart block- Primary Unspecified conduction disorder Unspecified atrial fibrillation (Multi) Longstanding persistent atrial fibrillation (Multi) Heart block Unspecified conduction disorder Primary hypertension Unspecified essential hypertension Other acute pericarditis (HHS-HCC) Other acute pericarditis Longstanding persistent atrial fibrillation (Multi) Primary hypertension Unspecified essential hypertension Acquired hypothyroidism Unspecified hypothyroidism Bradycardia Other specified cardiac dysrhythmias Unspecified atrial fibrillation (Multi) Paroxysmal atrial fibrillation (Multi) Atrial fibrillation documented in this encounter [facility] Work Phone: Evaluation note* Diagnosis Longstanding persistent atrial fibrillation (Multi)- Primary documented in this encounter [facility] Work Phone: Evaluation note* Diagnosis Status post placement of cardiac pacemaker- Primary Longstanding persistent atrial fibrillation (Multi) Conduction disorder, unspecified Status post placement of cardiac pacemaker Persistent atrial fibrillation (Multi) Atrial fibrillation Longstanding persistent atrial fibrillation (Multi) Conduction disorder, unspecified documented in this encounter [facility] Work Phone: Evaluation note* Diagnosis Atrial fibrillation/flutter (Multi) documented in this encounter [facility] Work Phone: Evaluation note* Diagnosis On amiodarone therapy- Primary Atrial fibrillation, unspecified type (Multi) documented in this encounter [facility] Work Phone: Evaluation note* Diagnosis Atrial fibrillation, unspecified type (Multi) Presence of cardiac pacemaker Cardiac pacemaker in situ documented in this encounter [facility] Work Phone: Evaluation note* Diagnosis Persistent atrial fibrillation (Multi)- Primary Atrial fibrillation On amiodarone therapy documented in this encounter [facility] Work Phone: Evaluation note* Diagnosis Atrial fibrillation, unspecified type (Multi) Presence of cardiac pacemaker Cardiac pacemaker in situ documented in this encounter [facility] Work Phone: Evaluation note* Diagnosis Onset Date Resolution Status Admit Date Hx of cardiac pacemaker acute J 2024 7:49am PAF (paroxysmal atrial fibrillation) acute May 03, 2025 7:49am Persistent atrial fibrillation acute May 03, 2025 7:49am Hypertension chronic May 03 025 7:49am [facility] Work Phone: Reason for referral (narrative)No reason for referral information availableWAdena [facility] Work Phone: Reason for visit Narrative* Auth/Cert Specialty Diagnoses / Procedures Referred By Shawna reed Referred To Contact Diagnoses Unspecified atrial fibrillation (Multi) Procedures IL COMPRE EP EVAL ABLTJ ATR FIB PULM VEIN ISOLATION Ablation [place] L[place]onda Bel[place]án [place] [address] [place] [address] Phone: tel: fax: [facility] [place] [id number] [place] [facility] [address] [place] [address] Phone: tel: fax: Referral ID Status Reason Start Date Expiration Date Visits Re quested Visits Authorized [id number] 1 1 [facility] Work Phone: Reason for visit Narrative* Auth/Cert Specialty Diagnoses / Procedures Referred By Shawna reed Referred To Contact Diagnoses Longstanding persistent atrial fibrillation (Multi) Conduction disorder, unspecified Longstanding persistent atrial fibrillation (Multi) [I48.11] Conduction disorder, unspecified [I45.9] Procedures IL INS NEW/RPLCMT PRM PM W/TRANSV ELTRD ATRIAL&VENT IL CARDIOVERSION ELECTIVE ARRHYTHMIA EXTERNAL Cardioversion PPM [place] L[place]onda [place]án [place] [address] [place] [address] Phone: tel: fax: [address] [address] Phone: tel: fax: Referral ID Status Reason Start Date Expiration Date Visits Re quested Visits Authorized [id number] 1 1 [facility] Work Phone: Reason for visit Narrative* Imaging (Routine) - Authorized Specialty Diagnoses / Procedures Referred By Shawna reed Referred To Contact Cardiology Diagnoses Atrial fibrillation/flutter (Multi) Procedures Cardiac Device Check - [place] Lashonda Beltrán [place] [address] [place] [address] Phone: tel: fax: Referral ID Status Reason Start Date Expiration Date Visits Requested Visits Authorized [id number] Authorized Perform Procedure 12/22/2024 12/22/2025 7 7 [facility] Work Phone: Regabr for visit Narrative* Imaging (Routine) - Authorized Specialty Diagnoses / Procedures Referred By Contac t Referred To Contact Cardiology Diagnoses Atrial fibrillation, unspecified type (Multi) Presence of cardiac pacemaker Procedures Cardiac device check - In Clinic Lashonda Beltrán [place] [id number] [place] [address] Phone: tel: fax: Referral ID Status Reason Start Date Expiration Date Visits Requested Visits Authorized [id number] Authorized Perform Procedure 01/10/2025 01/10/2026 1 1 [facility] Work Phone: Rexjml for visit Narrative* Cardiovascular (Routine) - Authorized Specialty Diagnoses / Procedures Referred By Contac t Referred To Contact Diagnoses Persistent atrial fibrillation (Multi) Procedures ECG 12 lead (Clinic Performed) Lashonda Beltrán MD [id number] [place] [address] Phone: tel: fax: Referral ID Status Reason Start Date Expiration Date V isits Requested Visits Authorized [id number] Authorized 04/30/2025 04/30/2026 1 1 [facility] Work Phone: Reason for visit Narrative* Imaging (Routine) - Authorized Specialty Diagnoses / Procedures Referred By Contac t Referred To Contact Cardiology Diagnoses Atrial fibrillation, unspecified type (Multi) Presence of cardiac pacemaker Procedures Cardiac device check - In Clinic Lashonda Beltrán MD [id number] [place] [address] Phone: tel: fax: Referral ID Status Reason Start Date Expiration Date Visits Requested Visits Authorized [id number] Authorized Perform Procedure 12/13/2024 12/13/2025 1 1 [facility] Work Phone: Chief Complaint and Reason for Visit Chief Complaint SCREENING Chief Complaint xray ABN SINUS X-RAY, SINUS MASS Chief Complaint xray ABN SINUS X-RAY, SINUS MASS SCREENING Chief Complaint xray ABN SINUS X-RAY, SINUS MASS SCREENING ENDOSCOPIC INTRANASAL Chief Complaint NEW ONSET AFIB (JL SEN) R00.2, AFIB 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 Reason for Visit Afib Hypertension Chief Complaint Admit Date 4 M FU December 13, 2024 8 :29am 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 M arch 2024 6:35am Reason for Visit Admit Date Persistent atrial fibrillation December 13, 2024 8:29am Hypertension December 13, 2024 8 :29am Chief Complaint Admit Date 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 M arch 2024 6:35am 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 [facility] 2024 7:00am 3 M FU PER MMM May 03, 2025 7:49 am Reason for Visit Admit Date Hx of cardiac pacemaker May 03, 2025 7:49am PAF (paroxysmal atrial fibrillation) Marc e 2024 7:49am Persistent atrial fibrillation April 7:49am Hypertension May 03, 2025 7:49 am Advance Directives No Advanced Directives Records Found Advance Directive Response Recorded Date/ Time Name of Medical Power of Certified Medical Coding Specialist June 21, 2023 9:47am Living Will Yes June 21 9:47am Power of Certified Medical Coding Specialist Yes June 21, 023 9:47am Advance Directive Response Recorded Date/ Time Living Will Yes June 21 9:47am Power of Certified Medical Coding Specialist Yes June 21, 2 023 9:47am Date Activated Date Inactivated Comments 10/13/2024 6:46 PM Question Answer Comments Plan of Care: Code Status Discussion Completed Decision Maker: Patient Date Activated Date Inactivated Comments 10/13/2024 6:46 PM Question Answer Comments Plan of Care: Code Status Discussion Completed Decision Maker: Patient Advance Directive Response Recorded Date/ Time Advance Directives Yes July 10:57am Summary Purpose Family History No Family History Records FoundNo Family History Records FoundNo Family History Records FoundNo Family History Records Found Additional Source Comments Goals (unrecognized section and content) Goals may be documented in a n alternate sectionGoals may be documented in an alternate sectionGoals may be documented in an alternate sectionGoals may be documented in an alternate sectionGoals may be documented in an alternate sectionGoals may be documented in an alternate sectionGoals may be documented in an alternate sectionGoals may be documented in an alternate sectionGoals may be documented in an alternate sectionGoals may be documented in an alternate sectionGoals may be documented in an alternate section Care Teams (unrecognized sec tion and content) Team Status: Active Member Role Status Dates Dr. Connor Anderson MD Family Provider Active Dr. Connor Anderson MD Primary Care Provider Activ e Team Status: Inactive Member Role Status Dates Dr. Connor Anderson MD Primary Care Provider Activ e ARABELLA Recinos Attending Provider Active Team Status: Inactive Member Role Status Dates Dr. Connor Anderson MD Primary Care Provider, Attending Provider, Referring Provider Active Team Status: Inactive Member Role Status Dates Dr. Connor Anderson MD Primary Care Provider Activ e Dr. Storm Ryan MD Attending Provider Active Team Status: Inactive Member Role Status Dates Dr. Connor Anderson MD Primary Care Provider Activ e Dr. Troy Carvalho MD Attending Provider, Referring Pr ovider Active Team Status: Inactive Member Role Status Dates Dr. Connor Anderson MD Primary Care Provider, Atte nding Provider Active Team Status: Active Member Role Status Dates Dr. David Anderson MD Family Provider Active Dr. David Anderson MD Primary Care Provider Acti ve Team Status: Inactive Member Role Status Dates Dr. David Anderson MD Primary Care Provider, Ref erring Provider Active Dr. Storm Ryan MD Attending Provider Active Team Status: Active Member Role Status Dates Dr. Daivd Anderson MD Primary Care Provider Acti ve Dr. Storm Ryan MD Attending Provider Active Team Status: Inactive Member Role Status Dates Dr. David Anderson MD Primary Care Provider, Att ending Provider Active Team Status: Active Member Role Status Dates Dr. David Anderson MD Primary Care Provider Acti ve Dr. Storm Ryan MD Attending Provider, Referring Pro vider Active Team Status: Inactive Member Role Status Dates Dr. David Anderson MD Primary Care Provider Acti ve Dr. Storm Ryan MD Attending Provider, Referring Pro vider Active Provider Relations Representative Relationship Specialty Start Date End Date Generic Provider, No [place] [address] PCP - General Map Maker 09/13/24 Provider Relations Representative Relationship Specialty Start Date End Date Generic Provider, [place] [address] PCP - General Map Maker 09/13/24 Provider Relations Representative Relationship Specialty Start Date End Date Generic Provider, No [place] [address] PCP - General Map Maker 09/13/24 Provider Relations Representative Relationship Specialty Start Date End Date Generic Provider, [place] [address] PCP - General Map Maker 09/13/24 12/14/24 David Anderson MD [address] [place] [address] PCP - General Family Medicine 12/15/24 Provider Relations Representative Relationship Specialty Start Date End Date Generic Provider, [place] [address] PCP - General Map Maker 09/13/24 12/14/24 Provider Relations Representative Relationship Specialty Start Date End Date David Anderson MD [address] [place] [address] PCP - General Family Medicine 12/15/24 Provider Relations Representative Relationship Specialty Start Date End Date David Anderson MD [address] [place] [address] PCP - General Family Medicine 12/15/24 Provider Relations Representative Relationship Specialty Start Date End Date David Anderson MD [address] [place] [address] PCP - General Family Medicine 12/15/24 Team Status: Active Member Role Status Dates Dr. David Anderson MD Primary Care Provider Cipriano thomas Team Status: Inactive Member Role Status Dates Dr. David Anderson MD Primary Care Provider Acti ve Start: September 30, 2024 End: September 30, 2024 LASHONDA, THAL Attending Provider Active Start: No vember 2023 End: September 30, 2024 LASHONDA, THAL Referring Provider Active Start: No vember 2023 End: September 30, 2024 Team Status: Inactive Member Role Status Dates Dr. David Anderson MD Primary Care Provider Acti ve Start: December 06, 2024 End: December 06, 2024 LASHONDA, BARBADIAN Attending Provider Active Start: [facility] 2024 End: December 06, 2024 Dr. Storm Ryan MD Other Provider Active Start : December 06, 2024 End: December 06, 2024 Team Status: Inactive Member Role Status Dates Dr. David Anderson MD Primary Care Provider Acti ve Start: December 13, 2024 End: December 13, 2024 Dr. David Anderson MD Referring Provider Active Start: December 13, 2024 End: December 13, 2024 Joy Baltazar PA, PA Attending Provider Active Start: December 13, 2024 End: December 13, 2024 Team Status: Inactive Member Role Status Dates Dr. David Anderson MD Primary Care Provider Acti ve Start: January 12, 2025 End: January 12, 2025 LASHONDA, THAL Attending Provider Active Start: [facility] 2024 End: January 12, 2025 LASHONDA, THAL Referring Provider Active Start: [facility] 2024 End: January 12, 2025 Dr. Storm Ryan MD Other Provider Active Start : January 12, 2025 End: January 12, 2025 Team Status: Active Member Role Status Dates Dr. David Anderson MD Primary Care Provider Acti ve Start: January 22, 2025 LASHONDA, BARBADIAN Attending Provider Active Start: [facility] 2024 LASHONDA, BARBADIAN Referring Provider Active Start: [facility] 2024 Dr. Storm Ryan MD Other Provider Active Start : January 22, 2025 Team Status: Inactive Member Role Status Dates Dr. David Anderson MD Primary Care Provider Acti ve Start: January 22, 2025 End: January 22, 2025 LASHONDA, BARBADIAN Attending Provider Active Start: [facility] 2024 End: January 22, 2025 TORIN GALLEGO Referring Provider Active Start: [facility] 2024 End: January 22, 2025 Dr. Storm Ryan MD Other Provider Active Start : January 22, 2025 End: January 22, 2025 Provider Relations Representative Relationship Specialty Start Date End Date David Anderson MD [address] [place] [address] PCP - General Family Medicine 12/15/24 Provider Relations Representative Relationship Specialty Start Date End Date David Anderson MD [address] [place], [place] [id number] PCP - General Family Medicine 12/15/24 Team Status: Active Member Role Status Dates Dr. David Anderson MD Primary Care Provider Acti ve Start: January 22, 2025 Dr. Leonid Marcano DO Attending Provider Active S tart: January 22, 2025 TORIN GALLEGO Referring Provider Active Start: [facility] 2024 Team Status: Inactive Member Role Status Dates Dr. David Anderson MD Primary Care Provider Acti ve Start: May 03, 2025 End: May 03, 2025 Dr. David Anderson MD Referring Provider Active Start: May 03, 2025 End: May 03, 2025 Joy BOONE, PA Attending Provider Active Start: May 03, 2025 End: May 03, 2025 Reason for Visit (unrecogniz ed section and content) Reason Comments Atrial Fibrillation Specialty Diagnoses / Procedures Referred By Contac t Referred To Contact Diagnoses Atrial fibrillation, unspecified type (Multi) Procedures ECG 12 lead (Clinic Performed) Lashonda Beltrán [place] [address] [place] [address] Phone: tel: fax: Referral ID Status Reason Start Date Expiration Date V isits Requested Visits Authorized [id number] Authorized 09/13/2024 09/13/2025 1 1 Specialty Diagnoses / Procedures Referred By Contac t Referred To Contact Diagnoses Longstanding persistent atrial fibrillation (Multi) Procedures ECG 12 lead (Clinic Performed) Lashonda Beltrán [place] [address] [place] [address] Phone: tel: fax: Referral ID Status Reason Start Date Expiration Date V isits Requested Visits Authorized [id number] Authorized 11/15/2024 11/15/2025 1 1 Reason Comments Atrial Fibrillation Specialty Diagnoses / Procedures Referred By Contac t Referred To Contact Diagnoses Atrial fibrillation, unspecified type (Multi) Procedures ECG 12 lead (Clinic Performed) Lashonda Beltrán [place] [address] [place] [address] Phone: tel: fax: Referral ID Status Reason Start Date Expiration Date V isits Requested Visits Authorized [id number] Authorized 01/10/2025 01/10/2026 1 1 Scheduled Active and Recently Administ ered Medications (unrecognized section and content) Medication Order 10/14/2024 10/15/2024 10/16/2024 apixaban (Eliquis) tablet 5 mg 5 mg, oral, 2 times daily, First dose on Wed10/13/24 at 2100 0026 (Unheld by provider - Provider: April Brunson MD)0839 (Given - Provider: Moises Jamil RN)2113 (Given - Provider: Paula Moore RN) 08 (Given - Provider: Nubia Benton RN)2028 (Given - Provider: Kristi Palmer, DANIEL) 08 (Given - Provider: Mary Kate Carrera, DANIEL)2100 (Due) colchicine tablet 0.6 mg(Linked Group 1) 0.6 mg, oral, 2 times daily, First dose on 10/15/24 at 0900 0808 (Given - Provider: Nubia Benton RN)2028 (Given - Provider: Kristi Palmer, DANIEL) 08 (Given - Provider: Mary Kate Carrera, DANIEL)2100 (Due) colchicine tablet 1.2 mg (COMPLETED)(Linked Group 1) 1.2 mg, oral, Once, On 10/15/24 at 0200, For 1 dose 0144 (Given - Provider: Paula Moore RN) flecainide (Tambocor) tablet 100 mg 100 mg, oral, Every 12 hours scheduled (0630,1830), First dose on 10/15/24 at 1830 1802 (Given - Provider: Nubia Benton RN) 0630 (Given - Provider: Kristi Palmer, DANIEL)1830 (Due) levothyroxine (Synthroid, Levoxyl) tablet 50 mcg 50 mcg, oral, Daily (0630), First dose on 10/14/24 at 0630 0600 (Given - Provider: Wes Camargo RN) 0446 (Given - Provider: Paula Moore RN) 0630 (Given - Provider: Kristi Palmer, DANIEL) lidocaine 4 % patch 1 patch 1 patch, transdermal, Administer over 12 Hours, Daily, First dose on 10/14/24 at 0900, Apply to area of pain. Patch will remain on for 12 hours, then removed for [address] patch directly over any surgical incisions or wounds. 0840 (Medication Applied - Provider: Moises Jamil RN - Comment: back)2234 (Medication Removed - Provider: Paula Moore RN) 0808 (Medication Applied - Provider: Nubia Benton RN - Comment: back)2015 (Medication Removed - Provider: rKisti Palmer, DANIEL) 0813 (Medication Applied - Provider: Mary Kate Carrera, DANIEL - Comment: back)2012 (Due: Medication Removed - Provider: Mary Kate Carrera, DANIEL) lisinopril tablet 10 mg (CANCELED) 10 mg, oral, Daily, First dose on 10/15/24 at 0900 0808 (Given - Provider: Nubia Benton RN) lisinopril tablet 20 mg 20 mg, oral, Daily, First dose (after last modification) on 10/16/24 at 0900 0809 (Given - Provider: Mary Kate Carrera, DANIEL) magnesium sulfate 4 g in sterile water for injection 100 mL (COMPLETED) 4 g, intravenous, at 25 mL/hr, Administer over 4 Hours, Once, On 10/15/24 at 0700, For 1 dose 0817 (New Bag - Provider: Nubia Benton RN)1410 (Stopped - Provider: Nubia Benton RN) melatonin tablet 3 mg 3 mg, oral, Daily, First dose on Wed10/13/24 at 2345 2114 (Given - Provider: Paula Moore RN) 2028 (Given - Provider: Kristi Palmer, DANIEL) 1800 (Due) metoprolol tartrate (Lopressor) tablet 12.5 mg 12.5 mg, oral, Every 6 hours, First dose on Wed10/15/24 at 1315 1414 (Given - Provider: Nubia Benton RN)2028 (Given - Provider: Kristi Palmer, DANIEL) 0149 (Given - Provider: Kristi Palmer, DANIEL)0809 (Given - Provider: Mary Kate Carrera RN)1326 (Given - Provider: Mary Kate Carrera RN)1915 (Due) pantoprazole (ProtoNix) EC tablet 40 mg 40 mg, oral, 2 times daily before meals, First dose on Wed10/16/24 at 1615, Do not crush, chew, or split. 1615 (Due) potassium phosphates 15 mmol in dextrose 5% 250 mL IV (COMPLETED) 15 mmol, intravenous, at 63.8 mL/hr, Administer over 4 Hours, Once, On Wed10/16/24 at 0830, For 1 dose, Each 3 mmol contains 4.4 mEq potassium. 0925 (New Bag - Provider: Mary Kate Carrera RN)1336 (Stopped - Provider: Mary Kate Carrera RN) potassium, sodium phosphates (Phos-NaK) 280-160-250 mg packet 1 packet (COMPLETED) 1 packet, oral, 4 times daily, First dose on Wed10/15/24 at 0715, For 2 doses, mg dosing is based on phosphorus component. Each packet contains 250 mg elemental phosphorus, 7.1 mEq potassium, and 6.9 mEq sodium. 1024 (Given - Provider: Nubia Benton RN)1414 (Given - Provider: Nubia Benton RN) PRN Medication Order 10/14/2024 10/15/2024 10/16/2024 acetaminophen (Tylenol) tablet 975 mg 975 mg, oral, Every 6 hours PRN, pain mild (1-3), first line, pain moderate (4-6), first line, Starting on Wed10/13/24 at 2327, If ordered PRN for pain, nurse is permitted to administer this medication for higher pain scores based on patient preference? Yes 0839 (Given - Provider: Moises Jamil, RN)1620 (Given - Provider: Moises Jamil, RN)2114 (Given - Provider: Paula Moore, RN) 0333 (Given - Provider: Paula Moore, RN)1024 (Given - Provider: Nubia Benton, RN)1643 (Given - Provider: Nubia Benton, RN)2325 (Given - Provider: Kristi Palmer, DANIEL) 0809 (Given - Provider: Mary Kate Carrera, DANIEL) nitroglycerin (Nitrostat) SL tablet 0.4 mg 0.4 mg, sublingual, Every 5 min PRN, chest pain, Starting on Wed10/15/24 at 0748, May administer up to 3 doses per episode. polyethylene glycol (Glycolax, Miralax) packet 17 g 17 g, oral, Daily PRN, constipation, Starting on Wed10/15/24 at 1603 Linked Groups Order Group 1: colchicine tablet 1.2 mg (COMPLETED)Jump to med 1.2 mg, oral, Once, On 10/15/24 at 0200, For 1 dose Followed by colchicine tablet 0.6 mgJump to med 0.6 mg, oral, 2 times daily, First dose on Wed10/15/24 at 0900 Scheduled Medication Order 12/13/2024 12/14/2024 12/15/2024 amiodarone (Pacerone) tablet 400 mg 400 mg, oral, 2 times daily, First dose on Nohelia 12/14/24 at 2100, [facility] 2021 (Given - Provider: Julius Saenz, DANIEL) 0827 (Given - Provider: Edwige Valdes, DANIEL)2099 (Due) apixaban (Eliquis) tablet 5 mg 5 mg, oral, 2 times daily, First dose on Nohelia 12/14/24 at 2100, [facility] 2021 (Given - Provider: Julius Saenz, DANIEL) 0827 (Given - Provider: Edwige Valdes, DANIEL)2099 (Due) ceFAZolin (Ancef) 1 g in dextrose (iso) IV 50 mL (COMPLETED) 1 g, intravenous, at 100 mL/hr, Administer over 30 Minutes, Once, On Nohelia 12/14/24 at 1100, For 1 dose, Preprocedure, Administer within 60 minutes prior to incision. premix bag, Dosing of this medication varies based on severity of illness. Does this patient have sepsis or concern for sepsis (probable or documented infection plus systemic manifestations of infection)? No, Suspected Indication (Select all that apply): Surgical Prophylaxis, Indications: Surgical Prophylaxis 1221 (New Bag - Provider: Meliza Walden RN)1251 (Due: Stopped - Provider: Meliza Walden RN) doxycycline (Vibra-Tabs) tablet 100 mg 100 mg, oral, Every 12 hours scheduled, First dose on Nohelia 12/14/24 at 2100, For 7 days, [facility], Suspected Indication (Select all that apply): Surgical Prophylaxis, Indications: Surgical Prophylaxis 2021 (Given - Provider: Julius Saenz RN) 08 (Given - Provider: Edwige Valdes RN)2099 (Due) levothyroxine (Synthroid, Levoxyl) tablet 50 mcg 50 mcg, oral, Daily (0630), First dose on Wed12/15/24 at 0630, [facility] 0557 (Given - Provid er: Julius Saenz RN) lisinopril tablet 20 mg 20 mg, oral, Daily, First dose on Wed12/15/24 at 0900, [facility] 0826 (Given - Provid er: Edwige Valdes RN) metoprolol tartrate (Lopressor) tablet 50 mg 50 mg, oral, 2 times daily, First dose on Nohelia 12/14/24 at 2100, [facility] 2021 (Given - Provider: Julius Saenz RN) 0826 (Given - Provider: Edwige Valdes, DANIEL)2100 (Due) pantoprazole (ProtoNix) EC tablet 40 mg 40 mg, oral, 2 times daily before meals, First dose on Nohelia 12/14/24 at 1600, [facility], Do not crush, chew, or split. 1828 (Given - Provider: Edwige Valdes RN) 0753 (Given - Provider: Edwige Valdes RN)1600 (Due) PRN Medication Order 12/13/2024 12/14/2024 12/15/2024 acetaminophen (Tylenol) oral liquid 650 mg(Linked Group 1) 650 mg, oral, Every 4 hours PRN, pain mild (1-3), first line, Starting on Nohelia 2 at 1311, [facility], Give oral liquid per feeding tube if present. 1531 (See Alternative - Provider: Kailey Johnson RN)2332 (See Alternative - Provider: Julius Saenz RN) 0724 (See Alternative - Provider: Julius Saenz RN) acetaminophen (Tylenol) suppository 650 mg(Linked Group 1) 650 mg, rectal, Every 4 hours PRN, pain mild (1-3), first line, Starting on Nohelia 2/05/02 at 1311, [facility], Give rectally if unable to administer by mouth or feeding tube., If ordered PRN for pain, nurse is permitted to administer this medication for higher pain scores based on patient preference? Yes 1531 (See Alternative - Provider: Kailey Johnson RN)2332 (See Alternative - Provider: Julius Saenz RN) 0724 (See Alternative - Provider: Julius Saenz RN) acetaminophen (Tylenol) tablet 650 mg(Linked Group 1) 650 mg, oral, Every 4 hours PRN, pain mild (1-3), first line, pain moderate (4-6), first line, Starting on Nohelia 2 at 1311, [facility], If ordered PRN for pain, nurse is permitted to administer this medication for higher pain scores based on patient preference? Yes 1531 (Given - Provider: Kailey Johnson RN)2332 (Given - Provider: Julius Saenz RN) 0724 (Given - Provider: Julius Saenz RN) bupivacaine PF 0.25 % (Marcaine) 0.25 % (2.5 mg/mL) injection (CANCELED) As needed, Starting on Nohelia 2 at 1226, Intraprocedure 1226 (Given - Provider: Lashonda Beltrán MD) fentaNYL PF (Sublimaze) injection (CANCELED) As needed, Starting on Nohelia 2 at 1225, Intraprocedure 1225 (Given - Provider: Paddy Oneal RN)1239 (Given - Provider: Paddy Oneal RN) melatonin tablet 3 mg 3 mg, oral, Nightly PRN, sleep, Starting on Nohelia 12/14/24 at 1311, For 1 dose, [facility] midazolam (Versed) injection (CANCELED) As needed, Starting on Nohelia 12/14/24 at 1225, Intraprocedure 1225 (Given - Provider: Paddy Oneal RN)1239 (Given - Provider: Paddy Oneal RN) ondansetron (Zofran) injection 4 mg(Linked Group 2) 4 mg, intravenous, Every 8 hours PRN, nausea/vomiting, first line, Starting on Nohelia 12/14/24 at 1311, [facility], 1st Line. Give IV if patient is unable to take orally. If inadequate response within 60 minutes, proceed to next-line agent for same PRN reason or contact provider if no further options ordered. When administering via IV Push, administer over 3-5 minutes. 0443 (Given - Provid er: Julius Saenz RN) ondansetron (Zofran) tablet 4 mg(Linked Group 2) 4 mg, oral, Every 8 hours PRN, nausea/vomiting, first line, Starting on Nohelia 12/14/24 at 1311, [facility], 1st Line. Use oral route first, if possible. If inadequate response within 60 minutes, proceed to next-line agent for same PRN reason or contact provider if no further options ordered. 0443 (See Alternativ e - Provider: Julius Saenz RN) oxygen (O2) therapy (COMPLETED) Continuous PRN, Starting on Nohelia 12/14/24 at 1218, Intraprocedure 1218 (New Bag - Provider: Meliza Walden RN) traMADol (Ultram) tablet 50 mg 50 mg, oral, Every 6 hours PRN, pain severe (7-10), first line, Starting on Nohelia 12/14/24 at 1311, [facility], If ordered PRN for pain, nurse is permitted to administer this medication for higher pain scores based on patient preference? Yes Linked Groups Order Group 1: acetaminophen (Tylenol) tablet 650 mgJump to med 650 mg, oral, Every 4 hours PRN, pain mild (1-3), first line, pain moderate (4- 6), first line, Starting on Nohelia 2/05/02 at 1311, [facility], If ordered PRN for pain, nurse is permitted to administer this medication for higher pain scores based on patient preference? Yes Or acetaminophen (Tylenol) oral liquid 650 mgJump to med 650 mg, oral, Every 4 hours PRN, pain mild (1-3), first line, Starting on Nohelia 2/05/02 at 1311, [facility], Give oral liquid per feeding tube if present. Or acetaminophen (Tylenol) suppository 650 mgJump to med 650 mg, rectal, Every 4 hours PRN, pain mild (1-3), first line, Starting on Nohelia 2/05/02 at 1311, [facility], Give rectally if unable to administer by mouth or feeding tube., If ordered PRN for pain, nurse is permitted to administer this medication for higher pain scores based on patient preference? Yes Group 2: ondansetron (Zofran) tablet 4 mgJump to med 4 mg, oral, Every 8 hours PRN, nausea/vomiting, first line, Starting on Nohelia 2/05/02 at 1311, [facility], 1st Line. Use oral route first, if possible. If inadequate response within 60 minutes, proceed to next-line agent for same PRN reason or contact provider if no further options ordered. Or ondansetron (Zofran) injection 4 mgJump to med 4 mg, intravenous, Every 8 hours PRN, nausea/vomiting, first line, Starting on Nohelia 2/05/02 at 1311, [facility], 1st Line. Give IV if patient is unable to take orally. If inadequate response within 60 minutes, proceed to next-line agent for same PRN reason or contact provider if no further options ordered. When administering via IV Push, administer over 3-5 minutes. INFORMATION SOURCE (unrecogn ized section and content) DATE CREATED AUTHOR 12/30/2024 [facility] DATE CREATED AUTHOR AUTHOR'S ORGANIZ ATION 05/02/2025 [facility] DATE CREATED AUTHOR AUTHOR'S ORGANIZ ATION 05/03/2025 [facility] DATE CREATED AUTHOR AUTHOR'S ORGANIZ ATION 05/04/2025 [facility] FOR RECORDS PERTAINING TO PATIENTS WHO ARE OR HAVE BEEN ENROLLED IN A CHEMICAL DEPENDENCY/SUBSTANCEABUSE PROGRAM, SOME INFORMATION MAY BE OMITTED. This clinical summary was aggregated from multiple sources. Caution should be exercised in using it in the provision of clinical care. This summary normalizes information from multiple sources, and as a consequence, information in this document may materially change the coding, format and clinical context of patient data. In addition, data may be omitted in some cases. CLINICAL DECISIONS SHOULD BE BASED ON THE PRIMARY CLINICAL RECORDS. [facility] [employer] [facility]. provides no warranty or guarantee of the accuracy or completeness of information in this document.
[2025-05-19 10:58] LABS: Anion Gap 10 (5-15); BUN 21 mg/dL (4-19); BUN/Creat Ratio 19.3 RATIO (10-20); Calcium,Total 9.5 mg/dL (7.6-11.0); Carbon Dioxide 23.2 mmol/L (21.0-32.0); Chloride 103 mmol/L (98-108); Glucose 100 mg/dL (70-99); Potassium 4.5 mmol/L (3.3-5.1)
== END | disposition home or self-care (01) ==
LOC: LAB 09:23
PROVIDERS: PCP Family Medicine; Referring Provider Physician Assistant Medical; Visit Provider Physician Assistant Medical
DX: I10 Essential (primary) hypertension (principal)
CPT/HCPCS: 36415; 80048

== ENCOUNTER → 2025-06-22 | Outpatient (CLI) | payer MEDICARE, BC, SELFPAY ==
--- OUTSIDE RECORDS SUMMARY | 2025-06-22 07:43 | XMS RPT_ITS | CCD ---
Author Organization [facility] CliniSymd Care Team Providers Care Zinc Chloride Operator Name Role Phone Dr. Connor Anderson Primary Care Provider [phone] Dr. Storm Ryan Attending Provider Dr. David Anderson Primary Care Provider [phone] Dr. David Anderson Referring Provider Dr. Storm Ryan Attending Provider Generic Provider MD, No Assigned Pcp Primary Car e Provider Unavailable Generic Provider , No Assigned Pcp Primary Car e Provider [...] Provider [phone] TORIN LASHONDA Attending Provider Dr. Storm Ryan MD Other Provider Dr. David Anderson MD Referring Provider [phone] Joy Shah Attending Provider KUWAITI LASHONDA Attending Provider KUWAITI, LASHONDA Referring Provider Dr. David Anderson MD Primary Care Provider THAL LASHONDA Attending Provider [phone] THAL, LASHONAD Referring Provider Justin CARLSON, Dr. Maldonado Primary Care Provider Dr. Storm Ryan MD Other Provider Jeet DOLAN, Dr. Jaquez Attending Provider [phone] KUWAITI, LASHONDA Referring Provider Unavailable Dr. David Anderson MD Referring Provider Joy Shah Attending Provider HELEN ORTIZ Referring Unavailable RANNEY, CHRISTOPHER ROMMEL Primary Care Unavail able THAL, LASHONDA G Attending Unavailable THAL, LASHONDA G Referring Unavailable RANNEY, CHRISTOPHER ROMMEL Primary Care Unavail able THAL, LASHONDA G Attending Unavailable GENERIC PROVIDER, NO ASSIGNED PCP Primary Care Unavailable THAL, LASHONDA G Referring Unavailable THAL, LASHONDA G Referring Unavailable RANNEY, CHRISTOPHER ROMMEL Primary Care Unavail able THAL, LASHONDA G Referring Unavailable RANNEY, CHRISTOPHER ROMMEL Primary Care Unavail able THAL, LASHONDA G Attending Unavailable [facility] Primary Care Unavail able THAL, LASHONDA G Attending Unavailable GENERIC PROVIDER, NO ASSIGNED PCP Primary Care Unavailable THAL, LASHONDA G Referring Unavailable THAL, LASHONDA G Admitting Unavailable THAL, LASHONDA G Attending Unavailable RANAUGUSTA, [facility] Primary Care Unavail able Justin CARLSON, Dr. Maldonado Primary Care Provider Joy Shah Referring Provider Connor, Storm Referring Unavailable [facility] Unavailable Connor, [place] Attending Unavailable Connor, [place] Consulting Unavailable Ranney, Christopher Referring Unavailable Joy Shah Attending Unavail able Ranney, [facility] Primary Care Unavailable Ranney, Christopher Referring Unavailable Ranney, [facility] Primary Care Unavailable Joy Shah Attending Unavail able Connor, [place] Referring Unavailable Leonid Marcano Attending Unavailable Ranney, Christopher Primary Care Unavailable Connor, Storm Consulting Unavailable Ranney, Christopher Referring Unavailable Connor, Storm Attending Unavailable Ranney, Christopher Primary Care Unavailable Ranney, Christopher Referring Unavailable Ranney, Christopher Primary Care Unavailable Joy Shah Attending Unavail able [facility] Referring Unavailable [facility] Unavailable Joy Shah Attending Unavail able Sia De La Rosa Referring Unavailable Leonid Marcano Attending Unavailable [facility] Unavailable [facility] Unavailable Joy Shah Referring Unavail able Connor, [place] Attending Unavailable Connor, [place] Referring Unavailable Connor, Storm Attending Unavailable [facility] Unavailable Connor, Storm Consulting Unavailable [facility] Care Unavailable Joy Shah Referring Unavail able Joy Shah Attending Unavail able Connor, [place] Referring Unavailable Connor, [place] Attending Unavailable [facility] Unavailable [facility] Referring Unavailable [facility] Attending Unavailable [facility] Unavailable [facility] Unavailable Joy Shah Referring Unavail able Joy Shah Attending Unavail able Sia De La Rosa Referring Unavailable Sia De La Rosa Attending Unavailable [facility] Unavailable Sia De La Rosa Attending Unavailable [facility] Unavailable Connor, [place] Consulting Unavailable Sia De La Rosa Referring Unavailable Sia De La Rosa Attending Unavailable Connor, Storm Consulting Unavailable [facility] Unavailable Sia De La Rosa Attending Unavailable Sia De La Rosa Referring Unavailable Connor, Storm Consulting Unavailable [facility] Unavailable [facility] Unavailable Joy Shah Attending Unavail able Joy Shah Referring Unavail able Medications Current Medications Medication Drug Class(es) Dates Sig (Normalized) Sig (Original) apixaban 5 mg oral tablet (20 sources) Factor Xa Inhibitor Start: 02-02-2024 End: 03-27-2024 take 1 tablet by mouth twice daily Apixaban (Eliquis) 5 mg tablet Active 5 mg PO TWICE A DAY 180 3 March 27, 2024 10:05am calcium carbonate 1500 mg / cholecalciferol 200 unt oral capsule (7 sources) Vitamin D Start: 06-21-2023 Calcium Carbonate-Vitamin [...] 12/21/2024 Active estradiol 0.5 mg oral tablet (17 sources) Estrogen Start: 08-30-2024 estradiol (Est race) 0.5 mg tablet 1 tablet (0.5 mg). 1/2 tablet vaginal twice a week 08/30/2024 Active Start: 06-21-2023 Estradiol 0.5 mg tablet Active 0.25 mg PO Q4D June 21, 2023 12:00am Start: 06-21-2023 Estradiol Acti ve 0.25 MG PO Q4D June 21, 2023 12:00am levothyroxine sodium 0.05 mg oral tablet (19 sources) l-Thyroxine Start: 06-21-2023 take 1 tablet [...] Unit Start: 12-13-2024 take 2 tablets by [facility] twice daily Metoprolol Tartrate 25 mg tablet Active 50 mg PO TWICE A DAY December 13, 2024 9:41am Start: 10-15-2024 take [address] tablet [address] [facility] every six hours 12.5 mg, oral, [...] Discontinued 25 mg PO TWICE A DAY 3 May 15, 2024 8:38am December 13, 2024 [...] DAILY February 02, 2024 12:00am Multivitamin tablet (4 sources) Start: 02-02-2024 Multivitamin tablet Active 1 [...] (Zofran) tablet 4 mg polyethylene glycol 3350 [id number] mg powder for oral solution (1 source) Osmotic Laxative Start: 10-15-2024 take 17 g by mouth every twenty-four hours as needed 17 g, oral, Daily PRN, constipation, Starting on 10/15/24 at 1603 spironolactone 25 mg oral tablet (2 sources) Aldosterone Antagonist Start: 05-03-2025 take 1 tablet by mouth once daily Spironolactone 25 mg tablet Active 25 mg PO DAILY 30 May 03, 2025 12:00am traMADol hydrochloride 50 [...] On Unit biotin 10 mg oral capsule (7 sources) Start: 06-21-2023 End: 04-25-2024 take 1 capsule by mouth once daily Biotin 10,000 mcg capsule Discontinued 64931 ug PO DAILY June 21, 2023 12:00am [...] Prophylaxis flecainide acetate 100 mg oral tablet (11 sources) Antiarrhythmic Start: 06-09-2024 End: 12-13-2024 take 1 tablet by mouth every twelve hours Flecainide 100 mg tablet Discontinued 100 mg PO Q12H 60 11 July 03, 2024 1:58pm December 13, 2024 9:42am 100 ml magnesium sulfate 40 mg/ml injection (1 source) Start: 10-15-2024 End: 10-15-2024 4 g, intravenous, at 25 mL/hr, Administer over 4 Hours, Once, On 10/15/24 at 0700, For 1 dose pantoprazole 40 mg delayed release oral tablet (13 sources) Proton Pump Inhibitor Start: 12-13-2024 End: [...] hypertension] Onset: 10-13-2024 01-13-2024 Chronic Nutritional deficiencies (6 sources) Serum iron low; Translations: [Iron deficiency] 01-13-2024 Episodic Other aftercare (2 sources) Drug therapy finding; Translations: [Other nursing home (current) drug therapy] 01-10-2025 Episodic Other aftercare (3 sources) Other nursing home (current) drug therapy; Translations: [Other nursing home (current) drug therapy] Onset: 01-10-2025 Episodic Other lower respiratory disease (4 sources) Dyspnea on exertion; Translations: [Other forms of dyspnea] 03-14-2024 Episodic Kelly-; endo-; and myocarditis; cardiomyopathy (except that caused by tuberculosis or sexually transmitted disease) (3 sources) Acute pericarditis; Translations: [Other forms of acute pericarditis] Onset: 10-13-2024 10-16-2024 Episodic Residual codes; unclassified (4 sources) History of cardioversion; Translations: [Personal history of other medical treatment] 12-13-2024 Episodic Thyroid disorders (10 sources) Acquired hypothyroidism; Translations: [Hypothyroidism, unspecified] Onset: 10-13-2024 10-13-2024 Chronic Thyroid disorders (6 sources) Disorder of thyroid gland; Translations: [Disorder [...] Date Documented Da te Episodic/Chronic Cardiac dysrhythmias (18 sources) Palpitations; Translations: [Palpitations] Onset: 08-02-2024 01-13-2024 Episodic Other lower respiratory disease (2 sources) [...] Test Name Value Interpretation Reference Range Facility Anion gap in Serum or Plasma Ordered By: Joy Baltazar on 05-19-2025 Anion gap [Moles/Vol] 10 mmol/L - [facility] BUN/creatinine ratioOrdered By: Joy Baltazar on 05-19-2025 Urea nitrogen/Creatinine [Mass ratio] 19.3 mg/mg - [facility] Basic Metabolic Profile (BMP )on 05-19-2025 BUN/CRE 19.3 RATIO Normal 08-27 [facility] Comment on above: Performed By: #### L 500.2500 #### [facility] [address] [place], [address] Calcium [Mass/Vol] 9.5 mg/dL Normal 7.6-11.0 [facility] Comment on above: Performed By: #### L 500.2500 #### [facility] [address] [place], [address] Chloride [Moles/Vol] 103 mmol/L Normal 98-108 [facility] Comment on above: Performed By: #### L 500.2500 #### [facility] [address] [place], [address] CO2 [Moles/Vol] 23.2 mmol/L Normal 21.0-32.0 [facility] Comment on above: Performed By: #### L 500.2500 #### [facility] [address] [place], [address] Creatinine [Mass/Vol] 1.10 mg/dL Normal 0.70-1.20 [facility] Comment on above: Performed By: #### L 500.2500 #### [facility] [address] [place], [address] GAP 10 Normal 5-15 [facility] Comment on above: Performed By: #### L 500.2500 #### [facility] [address] [place], [address] GFR/1.73 sq M.predicted among non-blacks MDRD (S/P/Bld) [Vol rate/Area] 54 mL/min/{1.73_m2} Low >60 [facility] Comment on above: Result Comment: mL/m in/1.73m2 CKD-EPI Creatinine Equation (2020) Performed By: #### L 500.2500 #### [facility] [address] [place], [address] Glucose [Mass/Vol] 100 mg/dL High 70-99 [facility] Comment on above: Performed By: #### L 500.2500 #### [facility] [address] [place], [address] Potassium [Moles/Vol] 4.5 mmol/L Normal 3.3-5.1 [facility] Comment on above: Performed By: #### L 500.2500 #### [facility] [address] [place], [address] Sodium [Moles/Vol] 137 mmol/L Normal 133-145 [facility] Comment on above: Performed By: #### L 500.2500 #### [facility] [address] [place], [address] Urea nitrogen [Mass/Vol] 21 mg/dL High 4-19 [facility] Comment on above: Performed By: #### L 500.2500 #### [facility] [address] [place], [address] Carbon dioxide, total [Moles /volume] in Central venous bloodOrdered By: Joy Baltazar on 05-19-2025 CO2 [Moles/Vol] 23.2 mmol/L 21.0-32.0 [facility] Chloride assayOrdered By: Olivia Baltazar on 05-19-2025 Chloride [Moles/Vol] 103 mmol/L 98-108 [facility] Glomerular filtration rate ( GFR) estimation/1.73 sq m using serum, plasma, or whole bOrdered By: Joy Baltazar on 05-19-2025 GFR/1.73 sq M.predicted among non-blacks MDRD (S/P/Bld) [Vol rate/Area] 54 mL/min/{1.73_m2} Low >60 [facility] Comment on above: mL/min/1.73m2 CKD-EP I Creatinine Equation (2020) Potassium measurement (mass/ volume)Ordered By: Joy Baltazar on 05-19-2025 Potassium (Unsp spec) [Mass/Vol] 4.5 mmol/L 3.3-5.1 [facility] Serum creatinine measurement (mass/volume)Ordered By: Joy Baltazar on 05-19-2025 Creatinine [Mass/Vol] 1.10 mg/dL 0.70-1.20 [facility] Serum glucose measurement (m ass/volume)Ordered By: Joy Baltazar on 05-19-2025 Glucose [Mass/Vol] 100 mg/dL High 70-99 [facility] Serum or plasma calcium tripp urement (mass/volume)Ordered By: Joy Baltazar on 05-19-2025 Calcium [Mass/Vol] 9.5 mg/dL 7.6-11.0 [facility] Serum or plasma urea nitroge n measurement (mass/volume)Ordered By: Joy Baltazar on 05-19-2025 Urea nitrogen [Mass/Vol] 21 mg/dL High 4-19 [facility] Sodium levelOrdered By: Endy Baltazar on 05-19-2025 Sodium [Moles/Vol] 137 mmol/L 133-145 [facility] Cardiology Visit Reporton Cardiology Visit Report [facility] [address] [place] [address] OFFICE VISIT Date of Service: 05/03/25 MR#: [id number] Acct: [id number] Name: RADHA THOMAS Rep #: [id number] : 1955 Provider: PAOLO Ruiz Age/Sex: 69/F Location: [facility] Status: Signed HPI HPI History of [...] on a beta-clemente and anticoagulation with a PLP4ER6-THMg score of 3. Patient did undergo a [...] beats. Patient was seen by EP at [facility]. Patient did undergo an ablation in October [...] Visit Reasons: 3 M FU PER MMM Care Advocate Required: No Accompanied by: Self Is patient [...] History (Updated 05/03/25 @ 08:44 by Joy BOONE, PA) Hx of cardiac pacemaker PAF (paroxysmal [...] face s (more content not included)... Normal [facility] ECG 12-LEADon 04-30-2025 ECG 12-LEAD Ventricular Rate 70 Atrial Rate 70 P-R Interval 360 QRS Duration 86 Q-T Interval 416 QTC Calculation(Bazett) 449 P Gary 38 R Gary 44 T Gary 61 QRS Count 12 Q Onset 223 P Onset 43 P Offset 115 T Offset 431 QTC Fredericia 438 Diagnosis Electronic atrial pacemaker When compared with ECG of 10-JAN-2025 15:05, Electronic atrial pacemaker has replaced Electronic ventricular pacemaker Confirmed by Lashonda Beltrán ([id number]) on 05/01/2025 9:28:25 AM Normal [facility] Bilirubin directon 5 Bilirubin.direct [Mass/Vol] 0.26 mg/dL 0.00-0.30 [facility] Bilirubin, totalon 5 Bilirubin [Mass/Vol] 0.62 mg/dL 0.00-1.30 [facility] Laboratory - Chemistry and C hemistry - challengeon 01-12-2025 AST [Catalytic activity/Vol] 24 U/L <32 [facility] Liver Profileon 01-12-2025 Albumin [Mass/Vol] 4.2 g/dL Normal 3.4-4.8 [facility] Comment on above: Performed By: #### L 500.2500, L100.0500 #### [facility] [address], [place], [id number] ALK PHOS 83 U/L Normal 35-104 [facility] Comment on above: Performed By: #### L 500.2500, L100.0500 #### [facility] [address] [place], [address] ALT [Catalytic activity/Vol] 23 U/L Normal <=34 [facility] Comment on above: Performed By: #### L 500.2500, L100.0500 #### [facility] [address] [place], [address] AST [Catalytic activity/Vol] 24 U/L Normal <=31 [facility] Comment on above: Performed By: #### L 500.2500, L100.0500 #### [facility] [address] [place], [address] Bilirubin [Mass/Vol] 0.62 mg/dL Normal 0.00-1.30 [facility] Comment on above: Performed By: #### L 500.2500, L100.0500 #### [facility] [address] [place], [address] Bilirubin.direct [Mass/Vol] 0.26 mg/dL Normal 0.00-0.30 [facility] Comment on above: Performed By: #### L 500.2500, L100.0500 #### [facility] [address] [place], [address] Globulin (S) [Mass/Vol] 3.1 g/dL Normal 2.2-4.2 [facility] Comment on above: Performed By: #### L 500.2500, L100.0500 #### [facility] [address] [place], [address] T PROT 7.3 g/dL Normal 5.9-8.4 [facility] Comment on above: Performed By: #### L 500.2500, L100.0500 #### [facility] [address] [place], [address] Serum globulin measurementon 01-12-2025 Globulin (S) [Mass/Vol] 3.1 g/dL 2.2-4.2 [facility] Serum or plasma alanine osborn otransferase (ALT) measurementon 01-12-2025 ALT [Catalytic activity/Vol] 23 U/L <35 [facility] Serum or plasma albumin tripp urement (mass/volume)on 01-12-2025 Albumin [Mass/Vol] 4.2 g/dL 3.4-4.8 [facility] Serum or plasma alkaline chioma sphatase measurementon 01-12-2025 ALP [Catalytic activity/Vol] 83 U/L 35-104 [facility] T4 Free Directon 01-12-2025 T4 FREE DIRECT 1.50 ng/dL High 0.76-1.46 [facility] Comment on above: Performed By: #### L 500.2500, L100.0500 #### [facility] [address] [place], [address] T4 freeon 01-12-2025 Free T4 [Mass/Vol] 1.50 ng/dL High 0.76-1.46 [facility] TSH DL <= 0.005 mIU/L Qnon 0 01-12-2025 Thyroid Stimulating Hormone (TSH) 3.370 uIU/mL 0.300-4.200 [facility] TSH Qn 3.370 uIU/mL 0.300-4.200 [facility] Thyroid Stim Hormone (TSH)on 01-12-2025 TSH 3.370 uIU/mL Normal 0.300-4.200 [facility] Comment on above: Performed By: #### L 500.2500, L100.0500 #### [facility] [address], [place], [address] Total proteinon 01-12-2025 Protein [Mass/Vol] 7.3 g/dL 5.9-8.4 [facility] ECG 12-LEADon 01-10-2025 ECG 12-LEAD Ventricular Rate 70 Atrial Rate 70 QRS Duration 180 Q-T Interval 484 QTC Calculation(Bazett) 522 R Gary -71 T Gary 101 QRS Count 12 Q Onset 196 T Offset 438 QTC Fredericia 509 Diagnosis AV sequential or dual chamber electronic pacemaker When compared with ECG of 14-DEC-2024 15:26, Electronic ventricular pacemaker has replaced Electronic atrial pacemaker Confirmed by Lashonda Beltrán ([id number]) on 01/10/2025 4:36:47 PM Normal [facility] Basic metabolic 2000 panelon 12-15-2024 Anion gap [Moles/Vol] 11 mmol/L 10 - 2 0 mmol/L [facility] Calcium [Mass/Vol] 8.9 mg/dL 8.6 - 10. 3 mg/dL [facility] Chloride [Moles/Vol] 106 mmol/L 98 - 10 7 mmol/L [facility] CO2 [Moles/Vol] 21 mmol/L 21 - 32 mmol/L [facility] Creatinine [Mass/Vol] 0.94 mg/dL 0.50 - 1.05 mg/dL [facility] GFR/1.73 sq M.predicted among non-blacks MDRD (S/P/Bld) [Vol rate/Area] 66 mL/min/{1.73_m2} - PINF [facility] Comment on above: Calculations of denia mated GFR are performed using the 2020 CKD-EPI Study Refit equation without the race variable for the IDMS-Traceable creatinine methods. https://jasn.asnjournals.org/content//ASN.2020 369412 Glucose [Mass/Vol] 163 mg/dL High 74 - 99 mg/dL [facility] Interpretation and review of laboratory results Abnormal [facility] Potassium [Moles/Vol] 4.2 mmol/L 3.5 - 5.3 mmol/L [facility] Sodium [Moles/Vol] 134 mmol/L Low 136 - 145 mmol/L [facility] Urea nitrogen [Mass/Vol] 18 mg/dL 6 - 23 mg/dL [facility] Anion gap [Moles/Vol] 11 mmol/L Normal 10-20 [facility] Comment on above: Performed By: #### 2 4321-2 #### LUKE KIMBLE ([id number]) [facility] ([facility] [place] [facility]) [address] [place] [address] Calcium [Mass/Vol] 8.9 mg/dL Normal 8.6-10.3 [facility] Comment on above: Performed By: #### 2 4321-2 #### LUKE KIMBLE ([id number]) [facility] ([facility] [place] [facility]) [address] [place] [address] Chloride [Moles/Vol] 106 mmol/L Normal 98-107 [facility] Comment on above: Performed By: #### 2 4321-2 #### LUKE KIMBLE ([id number]) [facility] ([facility] [place] [facility]) [address] [place] [address] CO2 [Moles/Vol] 21 mmol/L Normal 21-32 [facility] Comment on above: Performed By: #### 2 4321-2 #### LUKE KIMBLE ([id number]) [facility] ([facility] [place] [facility]) [address] [place] [address] Creatinine [Mass/Vol] 0.94 mg/dL Normal 0.50-1.05 [facility] Comment on above: Performed By: #### 2 4321-2 #### LUKE KIMBLE ([id number]) [facility] ([facility]) [address] [place] [address] Glomerular filtration rate/1.73 sq M.predicted 66 mL/min/1.73m*2 Normal >60 [facility] Comment on above: Result Comment: Calc ulations of estimated GFR are performed using the 2020 CKD-EPI Study Refit equation without the race variable for the IDMS-Traceable creatinine methods. https://jasn.asnjournals.org/content/early//ASN.2020 481778 Performed By: #### 2 4320-2 #### LUKE KIMBLE ([id number]) [facility] ([facility] [place] [facility]) [address] [place] [address] Glucose [Mass/Vol] 163 mg/dL High 74-99 [facility] Comment on above: Performed By: #### 2 4321-2 #### LUKE KIMBLE ([id number]) [facility] ([facility] [facility]) [address] [place] [address] Potassium [Moles/Vol] 4.2 mmol/L Normal 3.5-5.3 [facility] Comment on above: Performed By: #### 2 4321-2 #### LUKE KIMBLE ([id number]) [facility] ([facility] [place]) [address] [place] [address] Sodium [Moles/Vol] 134 mmol/L Low 136-145 [facility] Comment on above: Performed By: #### 2 4321-2 #### LUKE KIMBLE ([id number]) [facility] ([facility]) [address] [place] [id number] Urea nitrogen [Mass/Vol] 18 mg/dL Normal 6-23 [facility] Comment on above: Performed By: #### 2 4321-2 #### LUKE KIMBLE ([id number]) [facility] ([facility]) [address] [place] [address] CBC panel Auto (Bld)on 12-15 Erythrocyte distribution width (RBC) [Ratio] 12.8 % 11.5 - 14.5 % [facility] Hematocrit (Bld) [Volume fraction] 36.3 % 36.0 - 46.0 % [facility] Hemoglobin (Bld) [Mass/Vol] 11.7 g/dL Low 12.0 - 16.0 g/dL [facility] Interpretation and review of laboratory results Abnormal [facility] MCH (RBC) [Entitic mass] 29.7 pg 26.0 - 34.0 pg [facility] MCHC (RBC) [Mass/Vol] 32.2 g/dL 32.0 - 36.0 g/dL [facility] MCV (RBC) [Entitic vol] 92 fL 80 - 100 fL [facility] Nucleated RBC/100 WBC (Bld) [Ratio] 0 % [facility] Platelets (Bld) [#/Vol] 142 10*3/uL Low [facility] RBC (Bld) [#/Vol] 3.94 10*6/uL Low [facility] WBC (Bld) [#/Vol] 7.4 10*3/uL [facility] Erythrocyte distribution width (RBC) [Ratio] 12.8 % Normal 11.5-14.5 [facility] Comment on above: Performed By: #### 5 8410-2 #### LUKE KIMBLE ([id number]) [facility] ([facility]) [address] [place] [address] Hematocrit (Bld) [Volume fraction] 36.3 % Normal 36.0-46.0 [facility] Comment on above: Performed By: #### 5 8410-2 #### LUKE KIMBLE ([id number]) [facility] ([facility]) [address] [place] [address] Hemoglobin (Bld) [Mass/Vol] 11.7 g/dL Low 12.0-16.0 [facility] Comment on above: Performed By: #### 5 8410-2 #### LUKE KIMBLE ([id number]) [facility] ([facility]) [address] [place] [id number] MCH (RBC) [Entitic mass] 29.7 pg Normal 26.0-34.0 [facility] Comment on above: Performed By: #### 5 8410-2 #### LUKE KIMBLE ([id number]) [facility] ([facility]) [address] [place] [address] MCHC (RBC) [Mass/Vol] 32.2 g/dL Normal 32.0-36.0 [facility] Comment on above: Performed By: #### 5 8410-2 #### LUKE KIMBLE ([id number]) [facility] ([facility]) [address] [place] [address] MCV (RBC) [Entitic vol] 92 fL Normal 80-100 [facility] Comment on above: Performed By: #### 5 8410-2 #### LUKE KIMBLE ([id number]) [facility] ([facility]) [address] [place] [address] Nucleated RBC/100 WBC (Bld) [Ratio] 0.0 /100 WBCs Normal 0.0-0.0 [facility] Comment on above: Performed By: #### 5 8410-2 #### LUKE KIMBLE ([id number]) [facility] ([facility]) [address] [place] [address] Platelets (Bld) [#/Vol] 142 x10*3/uL Low 150-450 [facility] Comment on above: Performed By: #### 5 8410-2 #### LUKE KIMBLE ([id number]) [facility] ([facility]) [address] [place] [address] RBC (Bld) [#/Vol] 3.94 x10*6/uL Low 4.00-5.20 [facility] Comment on above: Performed By: #### 5 8410-2 #### LUKE KIMBLE ([id number]) [facility] ([facility]) [address] [place] [address] WBC (Bld) [#/Vol] 7.4 x10*3/uL Normal 4.4-11.3 [facility] Comment on above: Performed By: #### 5 8410-2 #### LUKE KIMBLE ([id number]) [facility] ([facility]) [address] [place] [address] XR CHEST 2 VIEWSon 5 XR CHEST 2 VIEWS Interpreted By: Candido Reza, STUDY: XR CHEST 2 VIEWS; 12/15/2024 8:35 am INDICATION: Signs/Symptoms:s/p device implant r/o pneumothorax and ensure lead placement intact. COMPARISON: 10/16/2024 ACCESSION NUMBER(S): [id number] ORDERING CLINICIAN: HELEN ORTIZ FINDINGS: CARDIOMEDIASTINAL SILHOUETTE: Cardiomediastinal silhouette is normal in size and configuration. Cardiac pacer. LUNGS: Lungs are clear. ABDOMEN: No remarkable upper abdominal findings. BONES: No acute osseous changes. Discogenic degenerative changes. IMPRESSION: 1. No evidence of acute cardiopulmonary process. MACRO: None Signed by: Candido Reza 12/15/2024 9:18 AM Dictation workstation: [id number] [facility] Comment on above: Order Comment: Wet r ead. Discharge pending film. XR Chest 2 Viewson 5 1. No evidence of acute cardiopulmonary process. MACRO: None Signed by: Candido Reza 12/15/2024 9:18 AM Dictation workstation: [id number] Interpreted By: Candido Reza, STUDY: XR CHEST 2 VIEWS; 12/15/2024 8:35 am INDICATION: Signs/Symptoms:s/p device implant r/o pneumothorax and ensure lead placement intact. COMPARISON: 10/16/2024 ACCESSION NUMBER(S): [id number] ORDERING CLINICIAN: HELEN ORTIZ FINDINGS: CARDIOMEDIASTINAL SILHOUETTE: Cardiomediastinal silhouette is normal in size and configuration. Cardiac pacer. LUNGS: Lungs are clear. ABDOMEN: No remarkable upper abdominal findings. BONES: No acute osseous changes. Discogenic degenerative changes. [facility] Candido Reza MD - 12/15/2024 Interpreted By: Candido Reza, STUDY: XR CHEST 2 VIEWS; 12/15/2024 8:35 am INDICATION: Signs/Symptoms:s/p device implant r/o pneumothorax and ensure lead placement intact. COMPARISON: 10/16/2024 ACCESSION NUMBER(S): [id number] ORDERING CLINICIAN: HELEN ORTIZ FINDINGS: CARDIOMEDIASTINAL SILHOUETTE: Cardiomediastinal silhouette is normal in size and configuration. Cardiac pacer. LUNGS: Lungs are clear. ABDOMEN: No remarkable upper abdominal findings. BONES: No acute osseous changes. Discogenic degenerative changes. IMPRESSION: 1. No evidence of acute cardiopulmonary process. MACRO: None Signed by: Candido Reza 12/15/2024 9:18 AM Dictation workstation: [id number] [facility] Work Phone: Radiology Study observation (narrative) [facility] Work Phone: XR Chest 2 ViewsOrdered By: Candido Reza on 12-15-2024 [facility] Work Phone: ECG 12-LEADon 12-14-2024 ECG 12-LEAD Ventricular Rate 70 Atrial Rate 68 QRS Duration 82 Q-T Interval 390 QTC Calculation(Bazett) 421 R Gary 24 T Gary 47 QRS Count 12 Q Onset 224 T Offset 419 QTC Fredericia 410 Diagnosis Electronic atrial pacemaker When compared with ECG of 15-NOV-2024 14:46, Electronic atrial pacemaker has replaced Atrial fibrillation Confirmed by Lashonda Beltrán ([id number]) on 12/28/2024 8:36:37 AM Normal [facility] Electrophysiology studyOrder ed By: Lashonda Beltrán on 12-14-2024 [facility] Work Phone: Cardiology Visit Reporton Cardiology Visit Report [facility] [address] [place] [address] OFFICE VISIT Date of Service: 12/13/24 MR#: [id number] Acct: [id number] Name: RADHA THOMAS Rep #: [id number] : 1955 Provider: PAOLO Ruiz Age/Sex: 69/F Location: [facility] Status: Signed HPI HPI History of [...] on a beta-clemente and anticoagulation with a [id number] score of 3. Patient did undergo a [...] beats. Patient was seen by EP at [facility]. Patient did undergo an ablation in October [...] (%) 96 Intake Visit Reasons: 4 M FU Care Advocate Required: No Is patient in pain?: No [...] to inspection (more content not included)... Normal [facility] Basic Metabolic Profile (BMP )on 12-06-2024 BUN/CRE 14.4 RATIO Normal 10-20 [facility] Comment on above: Order Comment: BRIAN LANZA WANTS RESULTS TO GO TO DR. RYAN AND DR ANDERSON Performed By: #### L 500.2500, L100.0500 #### [facility] [address] [place], [address] CA,Total 9.0 mg/dL Normal 8.5-10.1 [facility] Comment on above: Order Comment: BRIAN LANZA WANTS RESULTS TO GO TO DR. RYAN AND DR ANDERSON Performed By: #### L 500.2500, L100.0500 #### [facility] [address] [place], [address] Chloride [Moles/Vol] 108 mmol/L High 98-107 [facility] Comment on above: Order Comment: BRIAN LANZA WANTS RESULTS TO GO TO DR. RYAN AND DR ANDERSON Performed By: #### L 500.2500, L100.0500 #### [facility] [address] [place], [address] CO2 [Moles/Vol] 26.0 mmol/L Normal 21.0-32.0 [facility] Comment on above: Order Comment: BRIAN POOL WANTS RESULTS TO GO TO DR. RYAN AND DR ANDERSON Performed By: #### L 500.2500, L100.0500 #### [facility] [address] [place], [address] Creatinine [Mass/Vol] 0.90 mg/dL Normal 0.55-1.02 [facility] Comment on above: Order Comment: BRIAN POOL WANTS RESULTS TO GO TO DR. RYAN AND DR ANDERSON Result Comment: The validity of the calculated GFR GFRAA in patients over 70 years has not been determined. Clinical correlation is essential. Performed By: #### L 500.2500, L100.0500 #### [facility] [address] [place], [address] EST GFR - AA 80 mL/min Normal >60 [facility] Comment on above: Order Comment: BRIAN POOL WANTS RESULTS TO GO TO DR. RYAN AND DR ANDERSON Result Comment: Afri can Montenegrin GFR Calc Performed By: #### L 500.2500, L100.0500 #### [facility] [address] [place], [address] GAP 6 Normal 5-15 [facility] Comment on above: Order Comment: BRIAN POOL WANTS RESULTS TO GO TO DR. RYAN AND DR ANDERSON Performed By: #### L 500.2500, L100.0500 #### [facility] [address] [place], [address] GFR/1.73 sq M.predicted among non-blacks MDRD (S/P/Bld) [Vol rate/Area] 66 mL/min/{1.73_m2} Normal >60 [facility] Comment on above: Order Comment: BRIAN POOL WANTS RESULTS TO GO TO DR. RYAN AND DR ANDERSON Result Comment: Non- GFR Calc Performed By: #### L 500.2500, L100.0500 #### [facility] [address] [place], [address] Glucose [Mass/Vol] 105 mg/dL Normal 74-106 [facility] Comment on above: Order Comment: BRIAN LANZA WANTS RESULTS TO GO TO DR. RYAN AND DR ANDERSON Result Comment: Fast ing Glucose result from 100 to 125 mg/dL suggests IMPAIRED HOMEOSTASIS per A.D.A. criteria. Performed By: #### L 500.2500, L100.0500 #### [facility] [address] [place], [address] Potassium [Moles/Vol] 4.3 mmol/L Normal 3.5-5.1 [facility] Comment on above: Order Comment: BRIAN LANZA WANTS RESULTS TO GO TO DR. YRAN AND DR ANDERSON Performed By: #### L 500.2500, L100.0500 #### [facility] [address] [place], [address] Sodium [Moles/Vol] 140 mmol/L Normal 136-145 [facility] Comment on above: Order Comment: BRIAN LANZA WANTS RESULTS TO GO TO DR. RYAN AND DR ANDERSON Performed By: #### L 500.2500, L100.0500 #### [facility] [address] [place], [address] Urea nitrogen [Mass/Vol] 13 mg/dL Normal 7-18 [facility] Comment on above: Order Comment: BRIAN LANZA WANTS RESULTS TO GO TO DR. RYAN AND DR ANDERSON Performed By: #### L 500.2500, L100.0500 #### [facility] [address] [place], [address] Blood urea nitrogen (BUN)/cr eatinine ratioon 12-06-2024 Urea nitrogen/Creatinine [Mass ratio] 14.4 mg/mg 10-20 [facility] CBC-Complete Blood Cnt No Di ffon 12-06-2024 Erythrocyte distribution width (RBC) [Ratio] 12.6 % Normal 11.6-14.6 [facility] Comment on above: Order Comment: PATIE NT WANTS RESULTS TO GO TO DR. RYAN AND DR ANDERSON Performed By: #### L 500.2500, L100.0500 #### [facility] [address] [place], [address] Hematocrit (Bld) [Volume fraction] 36.1 % Low 37-47 [facility] Comment on above: Order Comment: LYNETTEKannan NT WANTS RESULTS TO GO TO DR. RYAN AND DR ANDERSON Performed By: #### L 500.2500, L100.0500 #### [facility] [address] [place], [address] Hemoglobin (Bld) [Mass/Vol] 12.0 g/dL Normal 12.0-15.0 [facility] Comment on above: Order Comment: BRIAN NT WANTS RESULTS TO GO TO DR. RYAN AND DR ANDERSON Performed By: #### L 500.2500, L100.0500 #### [facility] [address] [place], [address] MCH (RBC) [Entitic mass] 30.3 pg Normal 27.0-32.0 [facility] Comment on above: Order Comment: BRIAN NT WANTS RESULTS TO GO TO DR. DARCI ANDERSON Performed By: #### L 500.2500, L100.0500 #### [facility] [address] [place], [address] MCHC (RBC) [Mass/Vol] 33.2 g/dL Normal 32-36 [facility] Comment on above: Order Comment: BRIAN NT WANTS RESULTS TO GO TO DR. DARCI ANDERSON Performed By: #### L 500.2500, L100.0500 #### [facility] [address] [place], [address] MCV (RBC) [Entitic vol] 91.2 fL Normal 81-99 [facility] Comment on above: Order Comment: BRIAN NT WANTS RESULTS TO GO TO DR. DARCI ANDERSON Performed By: #### L 500.2500, L100.0500 #### [facility] [address] [place], [address] Platelet mean volume (Bld) [Entitic vol] 11.6 fL Normal 6.2-12.0 [facility] Comment on above: Order Comment: BRIAN NT WANTS RESULTS TO GO TO DR. RYAN AND DR ANDERSON Performed By: #### L 500.2500, L100.0500 #### [facility] [address] [place], [address] Platelets (Bld) [#/Vol] 147 10*3/uL Low 150-450 [facility] Comment on above: Order Comment: BRIAN NT WANTS RESULTS TO GO TO DR. RYAN AND DR ANDERSON Performed By: #### L 500.2500, L100.0500 #### [facility] [address] [place], [address] RBC (Bld) [#/Vol] 3.96 10*6/uL Low 4.2-5.4 [facility] Comment on above: Order Comment: BRIAN NT WANTS RESULTS TO GO TO DR. RYAN AND DR ANDERSON Performed By: #### L 500.2500, L100.0500 #### [facility] [address] [place], [address] RDW SD 41.8 fl Normal 35.1-43.9 [facility] Comment on above: Order Comment: BRIAN NT WANTS RESULTS TO GO TO DR. RYAN AND DR ANDERSON Performed By: #### L 500.2500, L100.0500 #### [facility] [address] [place], [address] WBC (Bld) [#/Vol] 4.9 10*3/uL Normal 4.4-11.0 [facility] Comment on above: Order Comment: BRIAN NT WANTS RESULTS TO GO TO DR. RYAN AND DR ANDERSON Performed By: #### L 500.2500, L100.0500 #### [facility] [address] [place], [place], [address] Carbon dioxide measurementon 12-06-2024 CO2 [Moles/Vol] 26.0 mmol/L 21.0-32.0 [facility] Chloride measurementon 12-06 Chloride [Moles/Vol] 108 mmol/L High 98-107 [facility] Erythrocyte distribution wid th ratioon 12-06-2024 Erythrocyte distribution width (RBC) [Ratio] 12.6 % 11.6-14.6 [facility] Erythrocyte distribution wid th standard deviationon 12-06-2024 Erythrocyte distribution width (RBC) [Entitic vol] 41.8 fL 35.1-43.9 [facility] Estimated glomerular filtrat ion rate (GFR) Americanon 12-06-2024 Estimated GFR (MDRD) Amer 80 mL/min >60 [facility] Comment on above: GFR Calc Glomerular filtration rate ( GFR) estimationon 12-06-2024 Estimated GFR (MDRD) Non-Af Amer 66 mL/min >60 [facility] Comment on above: Non- GFR Calc Glucose measurementon 2024 Glucose [Mass/Vol] 105 mg/dL 74-106 [facility] Comment on above: Fasting Glucose resu lt from 100 to 125 mg/dL suggests IMPAIRED HOMEOSTASIS per A.D.A. criteria. Hematocrit Auto (Bld) [Volum e fraction]on 12-06-2024 Hematocrit (Bld) [Volume fraction] 36.1 % Low 37-47 [facility] Hemoglobin measurementon Hemoglobin (Bld) [Mass/Vol] 12.0 g/dL 12.0-15.0 [facility] MCV (mean corpuscular volume ) determinationon 12-06-2024 MCV (RBC) [Entitic vol] 91.2 fL 81-99 [facility] Mean corpuscular hemoglobin (MCH) determinationon 12-06-2024 MCH (RBC) [Entitic mass] 30.3 pg 27.0-32.0 [facility] Mean corpuscular hemoglobin concentration (MCHC) determinationon 12-06-2024 MCHC (RBC) [Mass/Vol] 33.2 g/dL 32-36 [facility] Mean platelet volume determi nationon 12-06-2024 Platelet mean volume (Bld) [Entitic vol] 11.6 fL 6.2-12.0 [facility] Platelet counton 12-06-2024 Platelets (Bld) [#/Vol] 147 10*3/uL Low 150-450 [facility] Potassium measurementon 11-09 Potassium [Moles/Vol] 4.3 mmol/L 3.5-5.1 [facility] RBC Auto (Bld) [#/Vol]on RBC (Bld) [#/Vol] 3.96 10*6/uL Low 4.2-5.4 [facility] Serum anion gap measuremento n 12-06-2024 Anion gap [Moles/Vol] 6 mmol/L 5-15 [facility] Serum or plasma calcium tripp urement (mass/volume)on 12-06-2024 Calcium [Mass/Vol] 9.0 mg/dL 8.5-10.1 [facility] Serum or plasma creatinine m easurement (mass/volume)on 12-06-2024 Creatinine [Mass/Vol] 0.90 mg/dL 0.55-1.02 [facility] Comment on above: The validity of the calculated GFR & GFRAA in patients over 70 years has not been determined. Clinical correlation is essential. Serum or plasma urea nitroge n measurement (mass/volume)on 12-06-2024 Urea nitrogen [Mass/Vol] 13 mg/dL 7-18 [facility] Sodium levelon 12-06-2024 Sodium [Moles/Vol] 140 mmol/L 136-145 [facility] White blood cell (WBC) count on 12-06-2024 WBC (Bld) [#/Vol] 4.9 10*3/uL 4.4-11.0 [facility] ECG 12-LEADon 11-15-2024 ECG 12-LEAD Ventricular Rate 91 Atrial Rate 96 QRS Duration 80 Q-T Interval 354 QTC Calculation(Bazett) 435 R Gary 26 T Gary 48 QRS Count 15 Q Onset 221 T Offset 398 QTC Fredericia 407 Diagnosis Atrial fibrillation Abnormal ECG When compared with ECG of 16-OCT-2024 09:44, Nonspecific T wave abnormality, improved in Inferior leads T wave inversion no longer evident in Anterior leads Confirmed by Lashonda Beltrán ([id number]) on 11/16/2024 8:51:44 AM Normal [facility] CBC panel Auto (Bld)on 10-16 Erythrocyte distribution width (RBC) [Ratio] 12.4 % 11.5 - 14.5 % [facility] Hematocrit (Bld) [Volume fraction] 30.8 % Low 36.0 - 46.0 % [facility] Hemoglobin (Bld) [Mass/Vol] 10.6 g/dL Low 12.0 - 16.0 g/dL [facility] Interpretation and review of laboratory results Abnormal [facility] MCH (RBC) [Entitic mass] 29.7 pg 26.0 - 34.0 pg [facility] MCHC (RBC) [Mass/Vol] 34.4 g/dL 32.0 - 36.0 g/dL [facility] MCV (RBC) [Entitic vol] 86 fL 80 - 100 fL [facility] Nucleated RBC/100 WBC (Bld) [Ratio] 0 % [facility] Platelets (Bld) [#/Vol] 104 10*3/uL Low [facility] RBC (Bld) [#/Vol] 3.57 10*6/uL [facility] WBC (Bld) [#/Vol] 7.2 10*3/uL [facility] Erythrocyte distribution width (RBC) [Ratio] 12.4 % Normal 11.5-14.5 [facility] Comment on above: Performed By: #### 2 341-6 #### TEOFILO Flowers ([id number]) [facility] ([facility]) [address] [place] [address] Hematocrit (Bld) [Volume fraction] 30.8 % Low 36.0-46.0 [facility] Comment on above: Performed By: #### 2 341-6 #### TEOFILO Flowers ([id number]) [facility] ([facility]) [id number] [place] [address] Hemoglobin (Bld) [Mass/Vol] 10.6 g/dL Low 12.0-16.0 [facility] Comment on above: Performed By: #### 2 341-6 #### TEOFILO Flowers ([id number]) [facility] ([facility]) [address] [place] [address] MCH (RBC) [Entitic mass] 29.7 pg Normal 26.0-34.0 [facility] Comment on above: Performed By: #### 2 341-6 #### TEOFILO Flowers ([id number]) [facility] ([facility]) [id number] [place] [address] MCHC (RBC) [Mass/Vol] 34.4 g/dL Normal 32.0-36.0 [facility] Comment on above: Performed By: #### 2 341-6 #### TEOFILO Flowers ([id number]) [facility] ([facility]) [id number] [place] [address] MCV (RBC) [Entitic vol] 86 fL Normal 80-100 U [facility] Comment on above: Performed By: #### 2 341-6 #### TEOFILO Flowers ([id number]) [facility] ([facility]) [id number] [place] [address] Nucleated RBC/100 WBC (Bld) [Ratio] 0.0 /100 WBCs Normal 0.0-0.0 [facility] Comment on above: Performed By: #### 2 341-6 #### TEOFILO Flowers ([id number]) [facility] ([facility]) [id number] [place] [address] Platelets (Bld) [#/Vol] 104 x10*3/uL Low 150-450 [facility] Comment on above: Performed By: #### 2 341-6 #### TEOFILO Flowers ([id number]) [facility] ([facility]) [id number] [place] [address] RBC (Bld) [#/Vol] 3.57 x10*6/uL Low 4.00-5.20 [facility] Comment on above: Performed By: #### 2 341-6 #### TEOFILO Flowers ([id number]) [facility] ([facility]) [address] [place] [address] WBC (Bld) [#/Vol] 7.2 x10*3/uL Normal 4.4-11.3 [facility] Comment on above: Performed By: #### 2 341-6 #### TEOFILO Flowers ([id number]) [facility] ([facility]) [address] [place] [address] ECG 12-LEADon 10-16-2024 ECG 12-LEAD Ventricular Rate 92 Atrial Rate 91 QRS Duration 92 Q-T Interval 366 QTC Calculation(Bazett) 452 R Gary 19 T Gary 268 QRS Count 15 Q Onset 224 T Offset 407 QTC Fredericia 422 Diagnosis Atrial fibrillation Nonspecific ST and T wave abnormality Abnormal ECG When compared with ECG of 15-OCT-2024 13:02, No significant change was found Confirmed by Lashonda Beltrán ([id number]) on 10/16/2024 12:16:39 PM Normal [facility] Electrocardiogram, 12-lead P RN ACS symptomsOrdered By: Lashonda Beltrán on 10-16-2024 Atrial Rate 91 BPM [facility] Work Phone: [phone] Q Onset 224 ms [facility] Work Phone: [phone] QRS Count 15 beats [facility] Work Phone: [phone] QRS Duration 92 ms [facility] Work Phone: [phone] QT Interval 366 ms [facility] Work Phone: [phone] QTC Calculation(Bazett) 452 ms U [facility] Work Phone: [phone] QTC Fredericia 422 ms [facility] Work Phone: [phone] R Gary 19 degrees [facility] Work Phone: [phone] T Gary 268 degrees [facility] Work Phone: [phone] T Offset 407 ms [facility] Work Phone: Ventricular Rate 92 BPM [facility] Work Phone: [facility] Work Phone: Electrocardiogram, 12-lead P RN ACS symptomson 10-16-[address] and T wave abnormality Abnormal ECG When compared with ECG of 15-OCT-2024 13:02, No significant change was found Confirmed by Lashonda Beltrán ([id number]) on 10/16/2024 12:16:39 PM MUSE Lashonda Beltrán MD - 10/16/[address] and T wave abnormality Abnormal ECG When compared with ECG of 15-OCT-2024 13:02, No significant change was found Confirmed by Lashonda Beltrán ([id number]) on 10/16/2024 12:16:39 PM [facility] Work Phone: Magnesiumon 10-16-2024 Magnesium [Mass/Vol] 2.12 mg/dL 1.60 - 2.40 mg/dL [facility] Magnesium [Mass/Vol] 2.12 mg/dL Normal 1.60-2.40 [facility] Comment on above: Performed By: #### 2 341-6 #### TEOFILO Flowers ([id number]) [facility] ([facility]) [address] [place] [address] Magnesium [Mass/Vol]on 10-16 Interpretation and review of laboratory results Normal [facility] No Panel Informationon 10-16 [facility] Renal function 2000 panelon 10-16-2024 Albumin BCP dye [Mass/Vol] 3.4 g/dL 3.4 - 5.0 g/dL [facility] Anion gap [Moles/Vol] 12 mmol/L 10 - 2 0 mmol/L [facility] Calcium [Mass/Vol] 8.2 mg/dL Low 8.6 - 10. 6 mg/dL [facility] Chloride [Moles/Vol] 108 mmol/L High 98 - 10 7 mmol/L [facility] CO2 [Moles/Vol] 23 mmol/L 21 - 32 mmol/L [facility] Creatinine [Mass/Vol] 0.62 mg/dL 0.50 - 1.05 mg/dL [facility] eGFR - PINF [facility] Comment on above: Calculations of denia mated GFR are performed using the 2020 CKD-EPI Study Refit equation without the race variable for the IDMS-Traceable creatinine methods. https://jasn.asnjournals.org/content//ASN.2020 594786 Glucose [Mass/Vol] 111 mg/dL High 74 - 99 mg/dL [facility] Interpretation and review of laboratory results Abnormal [facility] Phosphate [Mass/Vol] 2 mg/dL Low 2.5 - 4 .9 mg/dL [facility] Comment on above: The performance marc acteristics of phosphorus testing in heparinized plasma have been validated by the individual laboratory site where testing is performed. Testing on heparinized plasma is not approved by the FDA; however, such approval is not necessary. Potassium [Moles/Vol] 3.9 mmol/L 3.5 - 5.3 mmol/L [facility] Sodium [Moles/Vol] 139 mmol/L 136 - 145 mmol/L [facility] Urea nitrogen [Mass/Vol] 9 mg/dL 6 - 23 mg/dL [facility] Albumin BCP dye [Mass/Vol] 3.4 g/dL Normal 3.4-5.0 [facility] Comment on above: Performed By: #### 1 9123-9 #### TEOFILO Flowers ([id number]) [facility] ([facility]) [address] [place] [address] 12589 Anion gap [Moles/Vol] 12 mmol/L Normal 10-20 [facility] Comment on above: Performed By: #### 1 9123-9 #### TEOFILO Flowers ([id number]) [facility] ([facility]) [address] [place] [address] 61876 Calcium [Mass/Vol] 8.2 mg/dL Low 8.6-10.6 [facility] Comment on above: Performed By: #### 1 9123-9 #### TEOFILO Flowers ([id number]) [facility] ([facility]) [address] [place] [address] Chloride [Moles/Vol] 108 mmol/L High 98-107 [facility] Comment on above: Performed By: #### 1 9123-9 #### TEOFILO OWENSER L ([id number]) [facility] ([facility]) [address] [place] [address] CO2 [Moles/Vol] 23 mmol/L Normal 21-32 [facility] Comment on above: Performed By: #### 1 9123-9 #### TEOFILO GUTHRIE L ([id number]) [facility] ([facility]) [address] [place] [address] Creatinine [Mass/Vol] 0.62 mg/dL Normal 0.50-1.05 [facility] Comment on above: Performed By: #### 1 9123-9 #### TEOFILO Flowers ([id number]) [facility] ([facility]) [address] [place] [address] 35239 GFR/1.73 sq M.predicted MDRD (S/P/Bld) [Vol rate/Area] mL/min/{1.73_m2} Normal >60 [facility] Comment on above: Result Comment: Calc ulations of estimated GFR are performed using the 2020 CKD-EPI Study Refit equation without the race variable for the IDMS-Traceable creatinine methods. https://jasn.asnjournals.org/content/early//ASN.2020 353020 Performed By: #### 1 9123-9 #### TEOFILO GUTHRIE L ([id number]) [facility] ([facility]) [address] [place] [address] Glucose [Mass/Vol] 111 mg/dL High 74-99 [facility] Comment on above: Performed By: #### 1 9123-9 #### TEOFILO GUTHRIE L ([id number]) [facility] ([facility]) [address] [place] [address] Phosphate [Mass/Vol] 2.0 mg/dL Low 2.5-4.9 [facility] Comment on above: Result Comment: The performance characteristics of phosphorus testing in heparinized plasma have been validated by the individual laboratory site where testing is performed. Testing on heparinized plasma is not approved by the FDA; however, such approval is not necessary. Performed By: #### 1 9123-9 #### TEOFILO Flowers ([id number]) [facility] ([facility]) [address] [place] [address] 75012 Potassium [Moles/Vol] 3.9 mmol/L Normal 3.5-5.3 [facility] Comment on above: Performed By: #### 1 9123-9 #### TEOFILO Flowers ([id number]) [facility] ([facility]) [address] [place] [address] 38525 Sodium [Moles/Vol] 139 mmol/L Normal 136-145 [facility] Comment on above: Performed By: #### 1 9123-9 #### TEOFILO Flowers ([id number]) [facility] ([facility]) [address] [place] [address] 94042 Urea nitrogen [Mass/Vol] 9 mg/dL Normal 6-23 [facility] Comment on above: Performed By: #### 1 9123-9 #### TEOFILO Flowers ([id number]) [facility] ([facility]) [address] [place] [address] 43498 US Heart TransthoracicOrdere d By: Colton Valle on 10-16-2024 LV EF 58 % [facility] Work Phone: [facility] Work Phone: US Heart Transthoracicon [facility], [address] [place] [address] 49053 and TRANSTHORACIC ECHOCARDIOGRAM REPORT Patient Name: RADHA WILLIAM Reading Physician: [id number] Colton Valle MD Study Date: 10/15/2024 Ordering Provider: [id number] KRYSTINA BRONSON MRN/PID: [id number] Fellow: Nurse: Date of /Age: 8 1955 / 69 years Frame Wirer: Gender assigned at F Additional Staff: : Height: Admit Date: 10/13/2024 Weight: Admission Status: Inpatient - Routine BSA / BMI: m2 / kg/m2 Study Type: TRANSTHORACIC ECHO (TTE) LIMITED Diagnosis/ICD: Longstanding persistent AFib-I48.11 CPT Code: Echo Limited-33997; Doppler Limited-26901; Color Doppler-71698 Study Detail: The following Echo studies were [...] inspiratory collapse less than 50%. 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 RECOMMENDATIONS: Utilizing an FDA cleared automated machine learning algorithm (EchoGo Heart Failure by [employer] the analysis of the apical 4-chamber echocardiogram [...] Pressure: 8 mmHg IVC Diam: 2.20 cm [id number] Colton Valle MD Electronically signed on 10/16/2024 at 3:47:28 PM Final Colton Saavedra M D - 10/16/2024 [facility], [address] [place] [address] and TRANSTHORACIC ECHOCARDIOGRAM REPORT Patient Name: RADHA THOMAS Reading Physician: [id number] Colton Valle MD Study Date: 10/15/2024 Ordering Provider: [id number] KRYSTINA BRONSON MRN/PID: [id number] Fellow: Nurse: Date of /Age: 8 1955 / 69 years Frame Wirer: Gender assigned at F Additional Staff: : Height: Admit Date: 10/13/2024 Weight: Admission Status: Inpatient - Routine BSA / BMI: m2 / kg/m2 Study Type: TRANSTHORACIC ECHO (TTE) LIMITED Diagnosis/ICD: Longstanding persistent AFib-I48.11 CPT Code: Echo Limited-21701; Doppler Limited-22298; Color Doppler-13410 Study Detail: The following Echo studies were [...] inspiratory collapse less than 50%. 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 RECOMMENDATIONS: Utilizing an FDA cleared automated machine learning algorithm (EchoGo Heart Failure by [employer] the analysis of the apical 4-chamber echocardiogram [...] Pressure: 8 mmHg IVC Diam: 2.20 cm [id number] Colton Valle MD Electronically signed on 10/16/2024 at 3:47:28 PM Final [facility] Work Phone: XR CHEST 1 VIEWon 10-16-2024 XR CHEST 1 VIEW Interpreted By: Juan Mcdaniels, STUDY: XR CHEST 1 VIEW; 10/16/2024 8:04 am INDICATION: Signs/Symptoms:TVP positioning. COMPARISON: Chest radiograph dated 10/14/2024. ACCESSION NUMBER(S): [id number] ORDERING CLINICIAN: KRYSTINA BRONSON FINDINGS: AP radiograph [...] Juan Mcdaniels 10/16/2024 9:09 AM Dictation workstation: [id number] [facility] XR Chest Single viewon 10-16 1. Similar positioning of transvenous pacer with tip overlying the right ventricle. 2. Interval increase in interstitial/alveolar pulmonary edema/atelectasis, superimposed infection can not be excluded. 3. Small left pleural effusion. MACRO: None Signed by: Juan Mcdaniels 10/16/2024 9:09 AM Dictation workstation: [id number] [facility] Interpreted By: Juan Mcdaniels, STUDY: XR CHEST 1 VIEW; 10/16/2024 8:04 am INDICATION: Signs/Symptoms:TVP positioning. COMPARISON: Chest radiograph dated 10/14/2024. ACCESSION NUMBER(S): [id number] ORDERING CLINICIAN: KRYSTINA BRONSON FINDINGS: AP radiograph [...] BONES: No acute osseous changes. [facility] Juan Mcdaniels MD PhD - 10/16/2024 Interpreted By: Juan Mcdaniels, STUDY: XR CHEST 1 VIEW; 10/16/2024 8:04 am INDICATION: Signs/Symptoms:TVP positioning. COMPARISON: Chest radiograph dated 10/14/2024. ACCESSION NUMBER(S): [id number] ORDERING CLINICIAN: KRYSTINA BRONSON FINDINGS: AP radiograph [...] Juan Mcdaniels 10/16/2024 9:09 AM Dictation workstation: [id number] [facility] Work Phone: Radiology Study observation (narrative) [facility] Work Phone: XR Chest Single viewOrdered By: Juan Mcdaniels on 10-16-2024 [facility] Work Phone: C-reactive proteinon 024 CRP [Mass/Vol] 1.45 mg/dL High NINF - 1.00 mg/dL [facility] CBC panel Auto (Bld)on 10-15 Erythrocyte distribution width (RBC) [Ratio] 12.9 % 11.5 - 14.5 % [facility] Hematocrit (Bld) [Volume fraction] 32.3 % Low 36.0 - 46.0 % [facility] Hemoglobin (Bld) [Mass/Vol] 11 g/dL Low 12.0 - 16.0 g/dL [facility] Interpretation and review of laboratory results Abnormal [facility] MCH (RBC) [Entitic mass] 29.8 pg 26.0 - 34.0 pg [facility] MCHC (RBC) [Mass/Vol] 34.1 g/dL 32.0 - 36.0 g/dL [facility] MCV (RBC) [Entitic vol] 88 fL 80 - 100 fL [facility] Nucleated RBC/100 WBC (Bld) [Ratio] 0 % [facility] Platelets (Bld) [#/Vol] 119 10*3/uL Low [facility] RBC (Bld) [#/Vol] 3.69 10*6/uL [facility] WBC (Bld) [#/Vol] 8.2 10*3/uL [facility] Erythrocyte distribution width (RBC) [Ratio] 12.9 % Normal 11.5-14.5 [facility] Comment on above: Performed By: #### 2 341-6 #### TEOFILO Flowers ([id number]) [facility] ([facility]) [address] [place] [address] 18039 Hematocrit (Bld) [Volume fraction] 32.3 % Low 36.0-46.0 [facility] Comment on above: Performed By: #### 2 341-6 #### TEOFILO Flowers ([id number]) [facility] ([facility]) [id number] [place] [address] 60059 Hemoglobin (Bld) [Mass/Vol] 11.0 g/dL Low 12.0-16.0 [facility] Comment on above: Performed By: #### 2 341-6 #### TEOFILO Flowers ([id number]) [facility] ([facility]) [address] [place] [address] 76086 MCH (RBC) [Entitic mass] 29.8 pg Normal 26.0-34.0 [facility] Comment on above: Performed By: #### 2 341-6 #### TEOFILO Flowers ([id number]) [facility] ([facility]) [id number] [place] [address] 33220 MCHC (RBC) [Mass/Vol] 34.1 g/dL Normal 32.0-36.0 [facility] Comment on above: Performed By: #### 2 341-6 #### TEOFILO Flowers ([id number]) [facility] ([facility]) [id number] [place] [address] 90699 MCV (RBC) [Entitic vol] 88 fL Normal 80-100 [facility] Comment on above: Performed By: #### 2 341-6 #### TEOFILO Flowers ([id number]) [facility] ([facility]) [address] [place] [address] 34698 Nucleated RBC/100 WBC (Bld) [Ratio] 0.0 /100 WBCs Normal 0.0-0.0 [facility] Comment on above: Performed By: #### 2 341-6 #### TEOFILO Flowers ([id number]) [facility] ([facility]) [id number] [place] [address] 01459 Platelets (Bld) [#/Vol] 119 x10*3/uL Low 150-450 [facility] Comment on above: Performed By: #### 2 341-6 #### TEOFILO Flowers ([id number]) [facility] ([facility]) [id number] [place] [address] 53358 RBC (Bld) [#/Vol] 3.69 x10*6/uL Low 4.00-5.20 [facility] Comment on above: Performed By: #### 2 341-6 #### TEOFILO Flowers ([id number]) [facility] ([facility]) [id number] [place] [address] 33837 WBC (Bld) [#/Vol] 8.2 x10*3/uL Normal 4.4-11.3 [facility] Comment on above: Performed By: #### 2 341-6 #### TEOFILO Flowers ([id number]) [facility] ([facility]) [address] [place] [address] 39104 CRP [Mass/Vol]on 10-15-2024 Interpretation and review of laboratory results Abnormal [facility] ECG 12-LEADon 10-15-2024 ECG 12-LEAD Ventricular Rate 115 Atrial Rate 120 QRS Duration 88 Q-T Interval 318 QTC Calculation(Bazett) 439 R Gary 45 T Gary -78 QRS Count 19 Q Onset 226 T Offset 385 QTC Fredericia 394 Diagnosis Atrial fibrillation with rapid ventricular response Low voltage QRS Nonspecific T wave abnormality Abnormal ECG When compared with ECG of 14-OCT-2024 23:17, Atrial fibrillation has replaced Sinus rhythm Confirmed by Lashonda Beltrán ([id number]) on 10/29/2024 8:09:14 PM Normal [facility] Magnesiumon 10-15-2024 Magnesium [Mass/Vol] 1.68 mg/dL 1.60 - 2.40 mg/dL [facility] Magnesium [Mass/Vol] 1.68 mg/dL Normal 1.60-2.40 [facility] Comment on above: Performed By: #### 2 341-6 #### TEOFILO Flowers ([id number]) [facility] ([facility]) [address] [place] [address] 96208 Magnesium [Mass/Vol]on 10-15 Interpretation and review of laboratory results Normal [facility] No Panel Informationon 10-15 [facility] Renal function 2000 panelon 10-15-2024 Albumin BCP dye [Mass/Vol] 3.7 g/dL 3.4 - 5.0 g/dL [facility] Anion gap [Moles/Vol] 13 mmol/L 10 - 2 0 mmol/L [facility] Calcium [Mass/Vol] 8.5 mg/dL Low 8.6 - 10. 6 mg/dL [facility] Chloride [Moles/Vol] 106 mmol/L 98 - 10 7 mmol/L [facility] CO2 [Moles/Vol] 22 mmol/L 21 - 32 mmol/L [facility] Creatinine [Mass/Vol] 0.7 mg/dL 0.50 - 1.05 mg/dL [facility] eGFR - PINF [facility] Comment on above: Calculations of denia mated GFR are performed using the 2020 CKD-EPI Study Refit equation without the race variable for the IDMS-Traceable creatinine methods. https://jasn.asnjournals.org/content//ASN.2020 917093 Glucose [Mass/Vol] 129 mg/dL High 74 - 99 mg/dL [facility] Interpretation and review of laboratory results Abnormal [facility] Phosphate [Mass/Vol] 1.9 mg/dL Low 2.5 - 4 .9 mg/dL [facility] Comment on above: MILD HEMOLYSIS DETEC ROLANDA. [...] [Moles/Vol] 4 mmol/L 3.5 - 5.3 mmol/L [facility] Comment on above: MILD HEMOLYSIS DETEC ROLANDA. The result may be falsely elevated due to hemolysis or other interferents. Clinical correlation is recommended. Repeat testing may be considered. Sodium [Moles/Vol] 137 mmol/L 136 - 145 mmol/L [facility] Urea nitrogen [Mass/Vol] 16 mg/dL 6 - 23 mg/dL [facility] Albumin BCP dye [Mass/Vol] 3.7 g/dL Normal 3.4-5.0 [facility] Comment on above: Performed By: #### 2 341-6 #### TEOFILO Flowers ([id number]) [facility] ([facility]) [address] [place] [address] 25565 Anion gap [Moles/Vol] 13 mmol/L Normal 10-20 [facility] Comment on above: Performed By: #### 2 341-6 #### TEOFILO Flowers ([id number]) [facility] ([facility]) [address] [place] [address] 98513 Calcium [Mass/Vol] 8.5 mg/dL Low 8.6-10.6 [facility] Comment on above: Performed By: #### 2 341-6 #### TEOFILO Flowers ([id number]) [facility] ([facility]) [address] [place] [address] Chloride [Moles/Vol] 106 mmol/L Normal 98-107 [facility] Comment on above: Performed By: #### 2 341-6 #### TEOFILO Flowers ([id number]) [facility] ([facility]) [address] [place] [address] CO2 [Moles/Vol] 22 mmol/L Normal 21-32 [facility] Comment on above: Performed By: #### 2 341-6 #### TEOFILO Flowers ([id number]) [facility] ([facility]) [address] [place] [address] Creatinine [Mass/Vol] 0.70 mg/dL Normal 0.50-1.05 [facility] Comment on above: Performed By: #### 2 341-6 #### TEOFILO Flowers ([id number]) [facility] ([facility]) [address] [place] [address] GFR/1.73 sq M.predicted MDRD (S/P/Bld) [Vol rate/Area] mL/min/{1.73_m2} Normal >60 [facility] Comment on above: Result Comment: Calc ulations of estimated GFR are performed using the 2020 CKD-EPI Study Refit equation without the race variable for the IDMS-Traceable creatinine methods. https://jasn.asnjournals.org/content/early/ASN.2020 647460 Performed By: #### 2 341-6 #### TEOFILO Flowers ([id number]) [facility] ([facility]) [address] [place] [address] Glucose [Mass/Vol] 129 mg/dL High 74-99 [facility] Comment on above: Performed By: #### 2 341-6 #### TEOFILO Flowers ([id number]) [facility] ([facility]) [address] [place] [address] 28555 Phosphate [Mass/Vol] 1.9 mg/dL Low 2.5-4.9 [facility] Comment on above: Result Comment: MILD HEMOLYSIS [...] By: #### 2 341-6 #### TEOFILO Flowers ([id number]) [facility] ([facility]) [address] [place] [address] 84709 Potassium [Moles/Vol] 4.0 mmol/L Normal 3.5-5.3 [facility] Comment on above: Result Comment: MILD HEMOLYSIS DETECTED. The result may be falsely elevated due to hemolysis or other interferents. Clinical correlation is recommended. Repeat testing may be considered. Performed By: #### 2 341-6 #### TEOFILO Flowers ([id number]) [facility] ([facility]) [address] [place] [address] 39938 Sodium [Moles/Vol] 137 mmol/L Normal 136-145 [facility] Comment on above: Performed By: #### 2 341-6 #### TEOFILO Flowers ([id number]) [facility] ([facility]) [address] [place] [address] 04363 Urea nitrogen [Mass/Vol] 16 mg/dL Normal 6-23 [facility] Comment on above: Performed By: #### 2 341-6 #### TEOFILO Flowers ([id number]) [facility] ([facility]) [address] [place] [address] 19596 TRANSTHORACIC ECHO (TTE) NISHA Gan 10-15-2024 TRANSTHORACIC ECHO (TTE) [facility], [address] [place] [address] 39588 and TRANSTHORACIC ECHOCARDIOGRAM REPORT Patient Name: RADHA THOMAS Reading Physician: [id number] Colton Valle MD Study Date: 10/15/2024 Ordering Provider: [id number] KRYSTINA BRONSON MRN/PID: [id number] Fellow: Nurse: Date of /Age: 8 1955 / 69 years Frame Wirer: Gender assigned at F Additional Staff: : Height: Admit Date: 10/13/2024 Weight: Admission Status: Inpatient - Routine BSA / BMI: m2 / kg/m2 Study Type: TRANSTHORACIC ECHO (TTE) LIMITED Diagnosis/ICD: Longstanding persistent AFib-I48.11 CPT Code: Echo Limited-42549; Doppler Limited-08085; Color Doppler-84905 Study Detail: The following Echo studies were [...] inspiratory collapse less than 50%. 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 RECOMMENDATIONS: Utilizing an FDA cleared automated machine learning algorithm (EchoGo Heart Failure by [employer] the analysis of the apical 4-chamber echocardiogram [...] Pressure: 8 mmHg IVC Diam: 2.20 cm 63093 Colton Valle MD Electronically signed on 10/16/2024 at 3:47:28 PM Final Normal [facility] Tropinin I.cardiac panel Hig h sensitivity methodon 10-15-2024 Interpretation and review of laboratory results Abnormal [facility] Less than 99th percentile of normal range [...] performed using a different testing methodology at [facility] than at other [facility]. Direct result comparisons should only be made within the same method. [facility] Interpretation and review of laboratory results Abnormal [facility] Less than 99th percentile of normal range [...] performed using a different testing methodology at [facility] than at other [facility]. Direct result comparisons should only be made within the same method. [facility] Troponin I, High Sensitivity on 10-15-2024 Tropinin I.cardiac panel High sensitivity method 531 ng/L Critically high 0 - 34 ng/L [facility] Comment on above: Previous result veri fied on 10/15/2024 0304 on specimen/case [id number] called with component [facility] for procedure Troponin I, High Sensitivity with value 676 ng/L. Tropinin I.cardiac panel High sensitivity method 676 ng/L Critically high 0 - 34 ng/L [facility] Troponin I.cardiac panelon 1 12-16-2023 Tropinin I.cardiac panel High sensitivity method 531 ng/L Critically high 0-34 [facility] Comment on above: Order Comment: Less than [...] is performed using a differenttesting methodology at [facility] than [facility]. Direct result comparisons should onlybe made within the same method. Result Comment: Prev ious result verified on 10/15/2024 0304 on specimen/case [id number] called with component [facility] for procedure Troponin I, High Sensitivity with value 676 ng/L. Performed By: #### 2 341-6 #### TEOFILO Flowers ([id number]) [facility] ([facility]) [address] [place] [address] 87072 C reactive proteinon 024 CRP [Mass/Vol] 1.45 mg/dL High <1.00 [facility] Comment on above: Performed By: #### 2 341-6 #### TEOFILO Flowers ([id number]) [facility] ([facility]) [address] [place] [address] 61825 CBC panel Auto (Bld)on 10-14 Erythrocyte distribution width (RBC) [Ratio] 12.9 % Normal 11.5-14.5 [facility] Comment on above: Performed By: #### 2 341-6 #### TEOFILO Flowers ([id number]) [facility] ([facility]) [address] [place] [address] 73366 Hematocrit (Bld) [Volume fraction] 32.8 % Low 36.0-46.0 [facility] Comment on above: Performed By: #### 2 341-6 #### TEOFILO Flowers ([id number]) [facility] ([facility]) [address] [place] [address] 07603 Hemoglobin (Bld) [Mass/Vol] 10.8 g/dL Low 12.0-16.0 [facility] Comment on above: Performed By: #### 2 341-6 #### TEOFILO Flowers ([id number]) [facility] ([facility]) [address] [place] [address] Interpretation and review of laboratory results Abnormal [facility] MCH (RBC) [Entitic mass] 29.9 pg Normal 26.0-34.0 [facility] Comment on above: Performed By: #### 2 341-6 #### TEOFILO Flowers ([id number]) [facility] ([facility]) [address] [place] [address] MCHC (RBC) [Mass/Vol] 32.9 g/dL Normal 32.0-36.0 [facility] Comment on above: Performed By: #### 2 341-6 #### TEOFILO Flowers ([id number]) [facility] ([facility]) [address] [place] [address] MCV (RBC) [Entitic vol] 91 fL Normal 80-100 U [facility] Comment on above: Performed By: #### 2 341-6 #### TEOFILO Flowers ([id number]) [facility] ([facility]) [address] [place] [address] Nucleated RBC/100 WBC (Bld) [Ratio] 0 % [facility] Platelets (Bld) [#/Vol] 115 10*3/uL Low [facility] RBC (Bld) [#/Vol] 3.61 10*6/uL [facility] WBC (Bld) [#/Vol] 7.3 10*3/uL [facility] Nucleated RBC/100 WBC (Bld) [Ratio] 0.0 /100 WBCs Normal 0.0-0.0 [facility] Comment on above: Performed By: #### 2 341-6 #### TEOFILO Flowers ([id number]) [facility] ([facility]) [address] [place] [address] Platelets (Bld) [#/Vol] 115 x10*3/uL Low 150-450 [facility] Comment on above: Performed By: #### 2 341-6 #### TEOFILO Flowers ([id number]) [facility] ([facility]) [address] [place] [address] RBC (Bld) [#/Vol] 3.61 x10*6/uL Low 4.00-5.20 [facility] Comment on above: Performed By: #### 2 341-6 #### TEOFILO Flowers ([id number]) [facility] ([facility]) [address] [place] [address] WBC (Bld) [#/Vol] 7.3 x10*3/uL Normal 4.4-11.3 [facility] Comment on above: Performed By: #### 2 341-6 #### TEOFILO Flowers ([id number]) [facility] ([facility]) [address] [place] [address] ECG 12-LEADon 10-14-2024 ECG 12-LEAD Ventricular Rate 79 Atrial Rate 79 P-R Interval 234 QRS Duration 90 Q-T Interval 354 QTC Calculation(Bazett) 405 P Gary 77 R Gary 28 T Gary 177 QRS Count 13 Q Onset 224 P Onset 107 P Offset 167 T Offset 401 QTC Fredericia 388 Diagnosis Sinus rhythm with 1st degree AV block T wave abnormality, consider lateral ischemia Abnormal ECG When compared with ECG of 14-OCT-2024 08:41, Inverted T waves have replaced nonspecific T wave abnormality in Lateral leads Confirmed by Thal Lashonda ([id number]) on 10/29/2024 8:05:03 PM Normal [facility] ECG 12-LEAD Ventricular Rate 64 Atrial Rate 64 P-R Interval 224 QRS Duration 96 Q-T Interval 430 QTC Calculation(Bazett) 443 P Gary 70 R Gary 36 T Gary 190 QRS Count 11 Q Onset 222 P Onset 110 P Offset 169 T Offset 437 QTC Fredericia 439 Diagnosis Sinus rhythm with 1st degree AV block T wave abnormality, consider anterior ischemia Abnormal ECG When compared with ECG of 14-OCT-2024 08:25, [place] interval has increased Questionable change in QRS duration Criteria for Anterior infarct are no longer Present Criteria for Inferior infarct are no longer Present Confirmed by Too Beltráno ([id number]) on 10/29/2024 8:03:08 PM Normal [facility] ECG 12-LEAD Ventricular Rate 60 Atrial Rate 54 QRS Duration 168 Q-T Interval 554 QTC Calculation(Bazett) 554 R Gary -41 T Gary 110 QRS Count 10 Q Onset 182 T Offset 459 QTC Fredericia 554 Diagnosis Ventricular-paced rhythm Abnormal ECG When compared with ECG of 13-OCT-2024 18:23, No significant change was found Confirmed by Lashonda Beltrán ([id number]) on 10/29/2024 8:02:48 PM Normal [facility] Laboratory - Chemistry and C hemistry - challengeon 10-14-2024 Magnesium [Mass/Vol] 1.77 mg/dL Normal 1.60-2.40 [facility] Comment on above: Performed By: #### 1 9123-9 #### TEOFILO Flowers ([id number]) [facility] ([facility]) [address] [place] [address] Magnesium [Mass/Vol]on 10-14 Interpretation and review of laboratory results Normal [facility] No Panel Informationon 10-14 [facility] Renal function 2000 panelon 10-14-2024 Albumin BCP dye [Mass/Vol] 3.7 g/dL Normal 3.4-5.0 [facility] Comment on above: Performed By: #### 2 4362-6 #### TEOFILO Flowers ([id number]) [facility] ([facility]) [address] [place] [address] Anion gap [Moles/Vol] 11 mmol/L Normal 10-20 [facility] Comment on above: Performed By: #### 2 4362-6 #### TEOFILO Flowers ([id number]) [facility] ([facility]) [address] [place] [address] 92353 Calcium [Mass/Vol] 8.6 mg/dL Normal 8.6-10.6 [facility] Comment on above: Performed By: #### 2 4362-6 #### TEOFILO Flowers ([id number]) [facility] ([facility]) [address] [place] [address] 69003 Chloride [Moles/Vol] 104 mmol/L Normal 98-107 [facility] Comment on above: Performed By: #### 2 4362-6 #### TEOFILO Flowers ([id number]) [facility] ([facility]) [address] [place] [address]7989 CO2 [Moles/Vol] 23 mmol/L Normal 21-32 [facility] Comment on above: Performed By: #### 2 4362-6 #### TEOFILO Flowers ([id number]) [facility] ([facility]) [address] [place] [address] Creatinine [Mass/Vol] 0.8 mg/dL 0.50 - 1.05 mg/dL [facility] GFR/1.73 sq M.predicted among non-blacks MDRD (S/P/Bld) [Vol rate/Area] 80 mL/min/{1.73_m2} - PINF [facility] Comment on above: Calculations of denia mated GFR are performed using the 2020 CKD-EPI Study Refit equation without the race variable for the IDMS-Traceable creatinine methods. https://jasn.asnjournals.org/content/early/ASN.2020 562318 Glucose [Mass/Vol] 130 mg/dL High 74-99 [facility] Comment on above: Performed By: #### 2 4362-6 #### TEOFILO Flowers ([id number]) [facility] ([facility]) [address] [place] [address] Interpretation and review of laboratory results Abnormal [facility] Phosphate [Mass/Vol] 3.9 mg/dL Normal 2.5-4.9 [facility] Comment on above: The performance marc acteristics [...] By: #### 2 4362-6 #### TEOFILO Flowers ([id number]) [facility] ([facility]) [address] [place] [address] Potassium [Moles/Vol] 4.2 mmol/L Normal 3.5-5.3 [facility] Comment on above: Performed By: #### 2 4362-6 #### TEOFILO Flowers ([id number]) [facility] ([facility]) [id number] [place] [address] Sodium [Moles/Vol] 134 mmol/L Low 136-145 [facility] Comment on above: Performed By: #### 2 4362-6 #### TEOFILO GUTHRIE L ([id number]) [facility] ([facility]) [address] [place] [address]681 Urea nitrogen [Mass/Vol] 15 mg/dL Normal 6-23 [facility] Comment on above: Performed By: #### 2 4362-6 #### TEOFILO GUTHRIE L ([id number]) [facility] ([facility]) [address] [place] [address] Creatinine [Mass/Vol] 0.80 mg/dL Normal 0.50-1.05 [facility] Comment on above: Performed By: #### 2 4362-6 #### TEOFILO GUTHRIE L ([id number]) [facility] ([facility]) [address] [place] [address] 61245 Glomerular filtration rate/1.73 sq M.predicted 80 mL/min/1.73m*2 Normal >60 [facility] Comment on above: Result Comment: Calc ulations of estimated GFR are performed using the 2020 CKD-EPI Study Refit equation without the race variable for the IDMS-Traceable creatinine methods. https://jasn.asnjournals.org/content/early/ASN.2020 485449 Performed By: #### 2 4362-6 #### TEOFILO GUTHRIE L ([id number]) [facility] ([facility]) [address] [place] [address] 57345 Troponin I.cardiac panelon 1 12-15-2023 Tropinin I.cardiac panel High sensitivity method 676 ng/L Critically high 0-34 [facility] Comment on above: Order Comment: Less than [...] is performed using a different[facility] methodology [facility] than at [facility]. Direct result comparisons should onlybe made within the same method. Performed By: #### 2 341-6 #### TEOFILO Flowers ([id number]) [facility] ([facility]) [address] [place] [address] XR CHEST 1 VIEWon 10-14-2024 XR CHEST 1 VIEW Interpreted By: Aaron Pro, and Clifford Murray STUDY: XR CHEST 1 VIEW; 10/14/2024 8:18 am INDICATION: Signs/Symptoms:TVP. COMPARISON: None. ACCESSION NUMBER(S): [id number] ORDERING CLINICIAN: REINA MONET FINDINGS: AP radiograph [...] with the findings as stated by Trevor Horton, , PGY-3. This study was interpreted at [facility], [place], [place]. MACRO: None Signed by: Aaron Ramirez 10/14/2024 1:31 PM Dictation workstation: [id number] [facility] XR Chest Single viewon 10-14 1. Temporary transvenous pacer with tip overlying the right ventricle. 2. No evidence of acute cardiopulmonary process. I personally reviewed the images/study and I agree with the findings as stated by Trevor Horton DO, PGY-3. This study was interpreted at [place], [place]. MACRO: None Signed by: Aaron Ramirez 10/14/2024 1:31 PM Dictation workstation: [id number] [facility]ODAL Interpreted By: Aaron Pro and Ogievich Taessa STUDY: XR CHEST 1 VIEW; 10/14/2024 8:18 am INDICATION: Signs/Symptoms:TVP. COMPARISON: None. ACCESSION NUMBER(S): [id number] ORDERING CLINICIAN: REINA MONET FINDINGS: AP radiograph of the chest was provided. LINES/TUBES/DEVICES: Temporary transvenous pacer with tip overlying the right ventricle. CARDIOMEDIASTINAL SILHOUETTE: Cardiomediastinal silhouette is normal in size and configuration. LUNGS: No focal consolidation, pleural effusion, or pneumothorax. ABDOMEN: No remarkable upper abdominal findings. BONES: No acute osseous changes. MMODAL Aaron Pro MD - 10/14/2024 Interpreted By: Aaron Pro and Ogievich Taessa STUDY: XR CHEST 1 VIEW; 10/14/2024 8:18 am INDICATION: Signs/Symptoms:TVP. COMPARISON: None. ACCESSION NUMBER(S): [id number] ORDERING CLINICIAN: REINA MONET FINDINGS: AP radiograph [...] agree with the findings as stated by Trveor Horton DO, PGY-3. This study was interpreted at [place], [place]. MACRO: None Signed by: Aaron Ramirez 10/14/2024 1:31 PM Dictation workstation: [id number] [facility] Work Phone: Radiology Study observation (narrative) [facility] Work Phone: XR Chest Single viewOrdered By: Aaron Ramirez on 10-14-2024 [facility] Work Phone: Basic metabolic 2000 panelon 10-13-2024 Anion gap [Moles/Vol] 13 mmol/L 10 - 2 0 mmol/L [facility] Calcium [Mass/Vol] 8.7 mg/dL 8.6 - 10. 6 mg/dL [facility] Chloride [Moles/Vol] 109 mmol/L High 98 - 10 7 mmol/L [facility] CO2 [Moles/Vol] 21 mmol/L 21 - 32 mmol/L [facility] Creatinine [Mass/Vol] 0.71 mg/dL 0.50 - 1.05 mg/dL [facility] eGFR - PINF [facility] Comment on above: Calculations of denia mated GFR are performed using the 2020 CKD-EPI Study Refit equation without the race variable for the IDMS-Traceable creatinine methods. https://jasn.asnjournals.org/content/early/ASN.2020 836469 Glucose [Mass/Vol] 135 mg/dL High 74 - 99 mg/dL [facility] Interpretation and review of laboratory results Abnormal [facility] Potassium [Moles/Vol] 4.1 mmol/L 3.5 - 5.3 mmol/L [facility] Sodium [Moles/Vol] 139 mmol/L 136 - 145 mmol/L [facility] Urea nitrogen [Mass/Vol] 15 mg/dL 6 - 23 mg/dL [facility] Anion gap [Moles/Vol] 13 mmol/L Normal 10-20 [facility] Comment on above: Performed By: #### 2 4321-2 #### TEOFILO Flowers ([id number]) [facility] ([facility]) [address] [place] [address] Calcium [Mass/Vol] 8.7 mg/dL Normal 8.6-10.6 [facility] Comment on above: Performed By: #### 2 4321-2 #### TEOFILO Flowers ([id number]) [facility] ([facility]) [address] [place] [address] Chloride [Moles/Vol] 109 mmol/L High 98-107 [facility] Comment on above: Performed By: #### 2 4321-2 #### TEOFILO Flowers ([id number]) [facility] ([facility]) [address] [place] [address] CO2 [Moles/Vol] 21 mmol/L Normal 21-32 [facility] Comment on above: Performed By: #### 2 4321-2 #### TEOFILO Flowers ([id number]) [facility] ([facility]) [address] [place] [address] Creatinine [Mass/Vol] 0.71 mg/dL Normal 0.50-1.05 [facility] Comment on above: Performed By: #### 2 4321-2 #### TEOFILO Flowers ([id number]) [facility] ([facility]) [address] [place] [address] GFR/1.73 sq M.predicted MDRD (S/P/Bld) [Vol rate/Area] mL/min/{1.73_m2} Normal >60 [facility] Comment on above: Result Comment: Calc ulations of estimated GFR are performed using the 2020 CKD-EPI Study Refit equation without the race variable for the IDMS-Traceable creatinine methods. https://jasn.asnjournals.org/content/early/ASN.2020 662808 Performed By: #### 2 4321-2 #### TEOFILO Flowers ([id number]) [facility] ([facility]) [address] [place] [address] Glucose [Mass/Vol] 135 mg/dL High 74-99 [facility] Comment on above: Performed By: #### 2 4321-2 #### TEOFILO Flowers ([id number]) [facility] ([facility]) [address] [place] [address] Potassium [Moles/Vol] 4.1 mmol/L Normal 3.5-5.3 [facility] Comment on above: Performed By: #### 2 4321-2 #### TEOFILO GUTHRIE L ([id number]) [facility] ([facility]) [id number] [place] [address] 92046 Sodium [Moles/Vol] 139 mmol/L Normal 136-145 [facility] Comment on above: Performed By: #### 2 4321-2 #### TEOFILO Flowers ([id number]) [facility] ([facility]) [id number] [place] [address] 67982 Urea nitrogen [Mass/Vol] 15 mg/dL Normal 6-23 [facility] Comment on above: Performed By: #### 2 4321-2 #### TEOFILO Flowers ([id number]) [facility] ([facility]) [id number] [place] [address] 62651 CBC W Auto Differential pane l (Bld)on 10-13-2024 Basophils (Bld) [#/Vol] 0.07 10*3/uL [facility] Basophils/100 WBC (Bld) 0.6 % 0.0 - 2.0 % [facility] Eosinophils (Bld) [#/Vol] 0.16 10*3/uL [facility] Eosinophils/100 WBC (Bld) 1.5 % 0.0 - 6.0 % [facility] Erythrocyte distribution width (RBC) [Ratio] 12.8 % 11.5 - 14.5 % [facility] Hematocrit (Bld) [Volume fraction] 35.7 % Low 36.0 - 46.0 % [facility] Hemoglobin (Bld) [Mass/Vol] 11.9 g/dL Low 12.0 - 16.0 g/dL [facility] Immature granulocytes (Bld) [#/Vol] 0.15 10*3/uL [facility] Immature granulocytes/100 WBC (Bld) 1.4 % High 0.0 - 0.9 % [facility] Comment on above: Immature Granulocyte Count (IG) includes promyelocytes, myelocytes and metamyelocytes but does not include bands. Percent differential counts (%) should be interpreted in the context of the absolute cell counts (cells/UL). Interpretation and review of laboratory results Abnormal [facility] Lymphocytes (Bld) [#/Vol] 1.43 10*3/uL [facility] Lymphocytes/100 WBC (Bld) 13.2 % 13.0 - 44.0 % [facility] MCH (RBC) [Entitic mass] 30 pg 26.0 - 34.0 pg [facility] MCHC (RBC) [Mass/Vol] 33.3 g/dL 32.0 - 36.0 g/dL [facility] MCV (RBC) [Entitic vol] 90 fL 80 - 100 fL [facility] Monocytes (Bld) [#/Vol] 0.61 10*3/uL [facility] Monocytes/100 WBC (Bld) 5.6 % 2.0 - 10.0 % [facility] Neutrophils (Bld) [#/Vol] 8.45 10*3/uL High [facility] Comment on above: Percent differential counts (%) should be interpreted in the context of the absolute cell counts (cells/uL). Neutrophils/100 WBC (Bld) 77.7 % 40.0 - 80.0 % [facility] Nucleated RBC/100 WBC (Bld) [Ratio] 0 % [facility] Platelets (Bld) [#/Vol] 146 10*3/uL Low [facility] RBC (Bld) [#/Vol] 3.97 10*6/uL Low [facility] WBC (Bld) [#/Vol] 10.9 10*3/uL [facility] Basophils (Bld) [#/Vol] 0.07 x10*3/uL Normal 0.00-0.10 [facility] Comment on above: Performed By: #### 5 7021-8 #### TEOFILO Flowers ([id number]) [facility] ([facility]) [address] [place] [address] 27044 Basophils/100 WBC (Bld) 0.6 % Normal 0.0-2.0 [facility] Comment on above: Performed By: #### 5 7021-8 #### TEOFILO Flowers ([id number]) [facility] ([facility]) [address] [place] [address] 24541 Eosinophils (Bld) [#/Vol] 0.16 x10*3/uL Normal 0.00-0.70 [facility] Comment on above: Performed By: #### 5 7021-8 #### TEOFILO Flowers ([id number]) [facility] ([facility]) [address] [place] [address] 53910 Eosinophils/100 WBC (Bld) 1.5 % Normal 0.0-6.0 [facility] Comment on above: Performed By: #### 5 7021-8 #### TEOFILO Flowers ([id number]) [facility] ([facility]) [address] [place] [address] 25053 Erythrocyte distribution width (RBC) [Ratio] 12.8 % Normal 11.5-14.5 [facility] Comment on above: Performed By: #### 5 7021-8 #### TEOFILO Flowers ([id number]) [facility] ([facility]) [address] [place] [address] 78731 Hematocrit (Bld) [Volume fraction] 35.7 % Low 36.0-46.0 [facility] Comment on above: Performed By: #### 5 7021-8 #### TEOFILO Flowers ([id number]) [facility] ([facility]) [address] [place] [address] 51182 Hemoglobin (Bld) [Mass/Vol] 11.9 g/dL Low 12.0-16.0 [facility] Comment on above: Performed By: #### 5 7021-8 #### TEOFILO Flowers ([id number]) [facility] ([facility]) [address] [place] [address] Immature granulocytes (Bld) [#/Vol] 0.15 x10*3/uL Normal 0.00-0.70 [facility] Comment on above: Performed By: #### 5 7021-8 #### TEOFILO Flowers ([id number]) [facility] ([facility]) [id number] [place] [address] 01517 Immature granulocytes/100 WBC (Bld) 1.4 % High 0.0-0.9 [facility] Comment on above: Result Comment: Raquel ture Granulocyte Count (IG) includes promyelocytes, myelocytes and metamyelocytes but does not include bands. Percent differential counts (%) should be interpreted in the context of the absolute cell counts (cells/UL). Performed By: #### 5 7021-8 #### TEOFILO Flowers ([id number]) [facility] ([facility]) [address] [place] [address] 43487 Lymphocytes (Bld) [#/Vol] 1.43 x10*3/uL Normal 1.20-4.80 [facility] Comment on above: Performed By: #### 5 7021-8 #### TEOFILO Flowers ([id number]) [facility] ([facility]) [address] [place] [address] 26745 Lymphocytes/100 WBC (Bld) 13.2 % Normal 13.0-44.0 [facility] Comment on above: Performed By: #### 5 7021-8 #### TEOFILO Flowers ([id number]) [facility] ([facility]) [address] [place] [address] 15706 MCH (RBC) [Entitic mass] 30.0 pg Normal 26.0-34.0 [facility] Comment on above: Performed By: #### 5 7021-8 #### TEOFILO Flowers ([id number]) [facility] ([facility]) [id number] [place] [address] 10192 MCHC (RBC) [Mass/Vol] 33.3 g/dL Normal 32.0-36.0 [facility] Comment on above: Performed By: #### 5 7021-8 #### TEOFILO Flowers ([id number]) [facility] ([facility]) [address] [place] [address] MCV (RBC) [Entitic vol] 90 fL Normal 80-100 [facility] Comment on above: Performed By: #### 5 7021-8 #### TEOFILO Flowers ([id number]) [facility] ([facility]) [id number] [place] [address] 24108 Monocytes (Bld) [#/Vol] 0.61 x10*3/uL Normal 0.10-1.00 [facility] Comment on above: Performed By: #### 5 7021-8 #### TEOFILO Flowers ([id number]) [facility] ([facility]) [id number] [place] [address] 14277 Monocytes/100 WBC (Bld) 5.6 % Normal 2.0-10.0 [facility] Comment on above: Performed By: #### 5 7021-8 #### TEOFILO Flowers ([id number]) [facility] ([facility]) [address] [place] [address] 41255 Neutrophils (Bld) [#/Vol] 8.45 x10*3/uL High 1.20-7.70 [facility] Comment on above: Result Comment: Perc ent differential counts (%) should be interpreted in the context of the absolute cell counts (cells/uL). Performed By: #### 5 7021-8 #### TEOFILO Flowers ([id number]) [facility] ([facility]) [address] [place] [address] Neutrophils/100 WBC (Bld) 77.7 % Normal 40.0-80.0 [facility] Comment on above: Performed By: #### 5 7021-8 #### TEOFILO VILLALOBOSMOTIANA L ([id number]) [facility] ([facility]) [address] [place] [address] Nucleated RBC/100 WBC (Bld) [Ratio] 0.0 /100 WBCs Normal 0.0-0.0 [facility] Comment on above: Performed By: #### 5 7021-8 #### TEOFILO Flowers ([id number]) [facility] ([facility]) [id number] [place], [place] [id number] Platelets (Bld) [#/Vol] 146 x10*3/uL Low 150-450 [facility] Comment on above: Performed By: #### 5 7021-8 #### TEOFILO Flowers ([id number]) [facility] ([facility]) [id number] [place] [address] 22475 RBC (Bld) [#/Vol] 3.97 x10*6/uL Low 4.00-5.20 [facility] Comment on above: Performed By: #### 5 7021-8 #### TEOFILO Flowers ([id number]) [facility] ([facility]) [id number] [place] [address] 61755 WBC (Bld) [#/Vol] 10.9 x10*3/uL Normal 4.4-11.3 [facility] Comment on above: Performed By: #### 5 7021-8 #### TEOFILO Flowers ([id number]) [facility] ([facility]) [id number] [place] [address] 18506 ECG 12-LEADon 10-13-2024 ECG 12-LEAD Ventricular Rate 60 Atrial Rate 59 QRS Duration 168 Q-T Interval 574 QTC Calculation(Bazett) 574 R Gary -67 T Gary 105 QRS Count 9 Q Onset 179 T Offset 466 QTC Fredericia 574 Diagnosis Ventricular-paced rhythm Abnormal ECG When compared with ECG of 13-SEP-2024 12:54, Electronic ventricular pacemaker has replaced Atrial fibrillation Confirmed by Lashonda Beltrán ([id number]) on 10/27/2024 10:44:31 PM Normal [facility] Glucose Test strip manual (B ld) [Mass/Vol]on 10-13-2024 Glucose [Mass/Vol] 97 mg/dL 74 - 99 mg/dL [facility] Interpretation and review of laboratory results Normal [facility] Glucose [Mass/Vol] 97 mg/dL Normal 74-99 [facility] Comment on above: Performed By: #### 2 341-6 #### TEOFILO Flowers ([id number]) [facility] ([facility]) [address] [place] [address] Hepatic function 2000 panelo n 10-13-2024 Albumin BCP dye [Mass/Vol] 3.7 g/dL 3.4 - 5.0 g/dL [facility] ALP [Catalytic activity/Vol] 62 U/L 33 - 136 U/L [facility] ALT With P-5'-P [Catalytic activity/Vol] 17 U/L 7 - 45 U/L [facility] Comment on above: Patients treated wit h Sulfasalazine may generate falsely decreased results for ALT. AST With P-5'-P [Catalytic activity/Vol] 23 U/L 9 - 39 U/L [facility] Bilirubin [Mass/Vol] 1 mg/dL 0.0 - 1 .2 mg/dL [facility] Bilirubin.direct [Mass/Vol] 0.2 mg/dL 0.0 - 0.3 mg/dL [facility] Interpretation and review of laboratory results Normal [facility] Protein [Mass/Vol] 6.4 g/dL 6.4 - 8.2 g/dL [facility] Albumin BCP dye [Mass/Vol] 3.7 g/dL Normal 3.4-5.0 [facility] Comment on above: Performed By: #### 2 4325-3 #### TEOFILO Flowers ([id number]) [facility] ([facility]) [address] [place] [address] ALP [Catalytic activity/Vol] 62 U/L Normal 33-136 [facility] Comment on above: Performed By: #### 2 4325-3 #### TEOFILO Flowers ([id number]) [facility] ([facility]) [address] [place] [address] ALT With P-5'-P [Catalytic activity/Vol] 17 U/L Normal 7-45 [facility] Comment on above: Result Comment: Lynette ents treated with Sulfasalazine may generate falsely decreased results for ALT. Performed By: #### 2 4325-3 #### TEOFILO Flowers ([id number]) [facility] ([facility]) [address] [place] [address] 19831 AST With P-5'-P [Catalytic activity/Vol] 23 U/L Normal 9-39 [facility] Comment on above: Performed By: #### 2 4325-3 #### TEOFILO Flowers ([id number]) [facility] ([facility]) [address] [place] [address] 48412 Bilirubin [Mass/Vol] 1.0 mg/dL Normal 0.0-1.2 [facility] Comment on above: Performed By: #### 2 4325-3 #### TEOFILO Flowers ([id number]) [facility] ([facility]) [address] [place] [address] 26727 Bilirubin.direct [Mass/Vol] 0.2 mg/dL Normal 0.0-0.3 [facility] Comment on above: Performed By: #### 2 4325-3 #### TEOFILO Flowers ([id number]) [facility] ([facility]) [address] [place] [address] 53491 Protein [Mass/Vol] 6.4 g/dL Normal 6.4-8.2 [facility] Comment on above: Performed By: #### 2 4325-3 #### TEOFILO Flowers ([id number]) [facility] ([facility]) [address] [place], [place] [address] Magnesiumon 10-13-2024 Magnesium [Mass/Vol] 1.87 mg/dL 1.60 - 2.40 mg/dL [facility] Magnesium [Mass/Vol] 1.87 mg/dL Normal 1.60-2.40 [facility] Comment on above: Performed By: #### 1 9123-9 #### TEOFILO Flowers ([id number]) [facility] ([facility]) [address] [place] [address] 63462 No Panel Informationon 10-13 Images from the original result were not included. Atrial Fibrillation ablation Procedures Atrial Fibrillation ablation (16391), LA Pacing and recording (07728), 3D Mapping (35510), Intracardiac Echocardiogram (57581), Transseptal Catheterization (59976), Ultrasound Guided vascular access (30543), Insert temporary transvenous pacing electrode (00663) Patient history: Please refer to the detailed history and physical on the patient's medical chart. Procedure narrative: The procedure was performed under general anesthesia (administered and monitored by insect control aide and PEST CONTROL SERVICE TECHNICIAN). Anesthesia sedated and intubated the patient without [...] venous access a Decapolar CS catheter by [employer].ter was introduced and placed into the distal [...] 25-30W with adequate lesions by Visitag Surpoint ([employer].ter) criteria. Visitags were used to identify the [...] internal jugular under ultrasound guidance. A 6 Mosotho peel-away sheath was then placed. A pacing [...] procedural log and parameters. SYNGO_SECTRA_ CARDIOLAB_XPE R [facility] Work Phone: Interpretation and review of laboratory results Normal [facility] PT and aPTT panel Coag (PPP) Ordered By: Mago Humphreys on 10-13-2024 aPTT Coag (PPP) [Time] 133 s Critically high [facility] INR Coag (PPP) [Relative time] 1.1 {INR} 0.9 - 1.1 [facility] Interpretation and review of laboratory results Abnormal [facility] PT Coag (PPP) [Time] 12.6 s [facility] The APTT is no longe r used for monitoring Unfractionated Heparin Therapy. For monitoring Heparin Therapy, use the Heparin Assay. [facility] PT and aPTT panel Coag (PPP) on 10-13-2024 aPTT Coag (PPP) [Time] 133 s Critically high 27-38 [facility] Comment on above: Order Comment: The A PTT is no longer used for monitoring Unfractionated Heparin Therapy. For monitoring Heparin Therapy, use the Heparin Assay. Performed By: #### 3 4529-8 #### TEOFILO Flowers ([id number]) [facility] ([facility]) [address] [place] [address] 44042 INR Coag (PPP) [Relative time] 1.1 Normal 0.9-1.1 [facility] Comment on above: Order Comment: The A PTT is no longer used for monitoring Unfractionated Heparin Therapy. For monitoring Heparin Therapy, use the Heparin Assay. Performed By: #### 3 4529-8 #### TEOFILO Flowers ([id number]) [facility] ([facility]) [address] [place] [address] 65345 PT Coag (PPP) [Time] 12.6 s Normal 9.8-12.8 [facility] Comment on above: Order Comment: The A PTT is no longer used for monitoring Unfractionated Heparin Therapy. For monitoring Heparin Therapy, use the Heparin Assay. Performed By: #### 3 4529-8 #### TEOFILO Flowers ([id number]) [facility] ([facility]) [address] [place] [address] 18213 Phosphateon 10-13-2024 Phosphate [Mass/Vol] 3.5 mg/dL Normal 2.5-4.9 [facility] Comment on above: Result Comment: The performance characteristics of phosphorus testing in heparinized plasma have been validated by the individual laboratory site where testing is performed. Testing on heparinized plasma is not approved by the FDA; however, such approval is not necessary. Performed By: #### 2 777-1 #### TEOFILO Flowers ([id number]) [facility] ([facility]) [address] [place] [address] 83929 Phosphoruson 10-13-2024 Phosphate [Mass/Vol] 3.5 mg/dL 2.5 - 4 .9 mg/dL [facility] Comment on above: The performance marc acteristics of phosphorus testing in heparinized plasma have been validated by the individual laboratory site where testing is performed. Testing on heparinized plasma is not approved by the FDA; however, such approval is not necessary. TSHon 10-13-2024 TSH Qn 5.02 m[IU]/L High [facility] TSH Qnon 10-13-2024 Interpretation and review of laboratory results Abnormal [facility] TSH testing is performed using different testing methodology at [facility] than at other [facility]. Direct result comparisons should only be made within the same method. [facility] Thyrotropinon 10-13-2024 TSH Qn 5.02 m[IU]/L High 0.44-3.98 [facility] Comment on above: Order Comment: TSH t esting is performed using different testing methodology at [facility] than at other [facility]. Direct result comparisons should only be made within the same method. Performed By: #### 3 016-3 #### TEOFILO Flowers ([id number]) [facility] ([facility]) [address] [place] [address]355 Basic Metabolic Profile (BMP )on 09-30-2024 BUN/CRE 18.6 RATIO Normal 10-20 [facility] Comment on above: Performed By: #### L 500.2500, L100.0500 #### [facility] [address] [place], [address] CA,Total 9.0 mg/dL Normal 8.5-10.1 [facility] Comment on above: Performed By: #### L 500.2500, L100.0500 #### [facility] [address] [place], [address] Chloride [Moles/Vol] 109 mmol/L High 98-107 [facility] Comment on above: Performed By: #### L 500.2500, L100.0500 #### [facility] [address] [place], [address] CO2 [Moles/Vol] 28.0 mmol/L Normal 21.0-32.0 [facility] Comment on above: Performed By: #### L 500.2500, L100.0500 #### [facility] [address] [place], [address] Creatinine [Mass/Vol] 1.02 mg/dL Normal 0.55-1.02 [facility] Comment on above: Result Comment: The validity of the calculated GFR GFRAA in patients over 70 years has not been determined. Clinical correlation is essential. Performed By: #### L 500.2500, L100.0500 #### [facility] [address] [place], [address] EST GFR - AA 69 mL/min Normal >60 [facility] Comment on above: Result Comment: Afri can Montenegrin GFR Calc Performed By: #### L 500.2500, L100.0500 #### [facility] [address] [place], [address] GAP 4 Low 5-15 [facility] Comment on above: Performed By: #### L 500.2500, L100.0500 #### [facility] [address] [place], [address] GFR/1.73 sq M.predicted among non-blacks MDRD (S/P/Bld) [Vol rate/Area] 57 mL/min/{1.73_m2} Low >60 [facility] Comment on above: Result Comment: Non- GFR Calc Performed By: #### L 500.2500, L100.0500 #### [facility] [address] [place], [address] Glucose [Mass/Vol] 105 mg/dL Normal 74-106 [facility] Comment on above: Result Comment: Fast ing Glucose result from 100 to 125 mg/dL suggests IMPAIRED HOMEOSTASIS per A.D.A. criteria. Performed By: #### L 500.2500, L100.0500 #### [facility] [address] [place], [address] Potassium [Moles/Vol] 4.5 mmol/L Normal 3.5-5.1 [facility] Comment on above: Result Comment: Slig ht Hemolysis, Result may be falsely increased. Performed By: #### L 500.2500, L100.0500 #### [facility] [address] [place], [address] Sodium [Moles/Vol] 141 mmol/L Normal 136-145 [facility] Comment on above: Performed By: #### L 500.2500, L100.0500 #### [facility] [address] [place], [address] Urea nitrogen [Mass/Vol] 19 mg/dL High 7-18 [facility] Comment on above: Performed By: #### L 500.2500, L100.0500 #### [facility] [address] [place], [address] Blood urea nitrogen (BUN)/cr eatinine ratioon 09-30-2024 Urea nitrogen/Creatinine [Mass ratio] 18.6 mg/mg 10-20 [facility] CBC-Complete Blood Cnt No Di ffon 09-30-2024 Erythrocyte distribution width (RBC) [Ratio] 12.8 % Normal 11.6-14.6 [facility] Comment on above: Performed By: #### L 500.2500, L100.0500 #### [facility] [address] [place], [address] Hematocrit (Bld) [Volume fraction] 40.0 % Normal 37-47 [facility] Comment on above: Performed By: #### L 500.2500, L100.0500 #### [facility] [address] [place], [address] Hemoglobin (Bld) [Mass/Vol] 13.0 g/dL Normal 12.0-15.0 [facility] Comment on above: Performed By: #### L 500.2500, L100.0500 #### [facility] [address] [place], [address] MCH (RBC) [Entitic mass] 29.7 pg Normal 27.0-32.0 [facility] Comment on above: Performed By: #### L 500.2500, L100.0500 #### [facility] [address] [place], [address] MCHC (RBC) [Mass/Vol] 32.5 g/dL Normal 32-36 [facility] Comment on above: Performed By: #### L 500.2500, L100.0500 #### [facility] [address] [place], [address] MCV (RBC) [Entitic vol] 91.3 fL Normal 81-99 [facility] Comment on above: Performed By: #### L 500.2500, L100.0500 #### [facility] [address] [place], [address] Platelet mean volume (Bld) [Entitic vol] 10.8 fL Normal 6.2-12.0 [facility] Comment on above: Performed By: #### L 500.2500, L100.0500 #### [facility] [address] [place], [address] Platelets (Bld) [#/Vol] 161 10*3/uL Normal 150-450 [facility] Comment on above: Performed By: #### L 500.2500, L100.0500 #### [facility] [address] [place], [address] RBC (Bld) [#/Vol] 4.38 10*6/uL Normal 4.2-5.4 [facility] Comment on above: Performed By: #### L 500.2500, L100.0500 #### [facility] [address] [place], [address] RDW SD 43.1 fl Normal 35.1-43.9 [facility] Comment on above: Performed By: #### L 500.2500, L100.0500 #### [facility] [address] [place], [address] WBC (Bld) [#/Vol] 5.9 10*3/uL Normal 4.4-11.0 [facility] Comment on above: Performed By: #### L 500.2500, L100.0500 #### [facility] [address] [place], [address] Carbon dioxide measurementon 09-30-2024 CO2 [Moles/Vol] 28.0 mmol/L 21.0-32.0 [facility] Chloride measurementon 09-30 Chloride [Moles/Vol] 109 mmol/L High 98-107 [facility] Erythrocyte distribution wid th ratioon 09-30-2024 Erythrocyte distribution width (RBC) [Ratio] 12.8 % 11.6-14.6 [facility] Erythrocyte distribution wid th standard deviationon 09-30-2024 Erythrocyte distribution width (RBC) [Entitic vol] 43.1 fL 35.1-43.9 [facility] Estimated glomerular filtrat ion rate (GFR) Americanon 09-30-2024 Estimated GFR (MDRD) Amer 69 mL/min >60 [facility] Comment on above: GFR Calc Glomerular filtration rate ( GFR) estimationon 09-30-2024 Estimated GFR (MDRD) Non-Af Amer 57 mL/min Low >60 [facility] Comment on above: Non- GFR Calc Glucose measurementon 2023 Glucose [Mass/Vol] 105 mg/dL 74-106 [facility] Comment on above: Fasting Glucose resu lt from 100 to 125 mg/dL suggests IMPAIRED HOMEOSTASIS per A.D.A. criteria. Hematocrit Auto (Bld) [Volum e fraction]on 09-30-2024 Hematocrit (Bld) [Volume fraction] 40.0 % 37-47 [facility] Hemoglobin measurementon Hemoglobin (Bld) [Mass/Vol] 13.0 g/dL 12.0-15.0 [facility] MCV (mean corpuscular volume ) determinationon 09-30-2024 MCV (RBC) [Entitic vol] 91.3 fL 81-99 [facility] Mean corpuscular hemoglobin (MCH) determinationon 09-30-2024 MCH (RBC) [Entitic mass] 29.7 pg 27.0-32.0 [facility] Mean corpuscular hemoglobin concentration (MCHC) determinationon 09-30-2024 MCHC (RBC) [Mass/Vol] 32.5 g/dL 32-36 [facility] Mean platelet volume determi nationon 09-30-2024 Platelet mean volume (Bld) [Entitic vol] 10.8 fL 6.2-12.0 [facility] Platelet counton 09-30-2024 Platelets (Bld) [#/Vol] 161 10*3/uL 150-450 [facility] Potassium measurementon 09-09 Potassium [Moles/Vol] 4.5 mmol/L 3.5-5.1 [facility] Comment on above: Slight Hemolysis, Re sult may be falsely increased. RBC Auto (Bld) [#/Vol]on RBC (Bld) [#/Vol] 4.38 10*6/uL 4.2-5.4 [facility] Serum anion gap measuremento n 09-30-2024 Anion gap [Moles/Vol] 4 mmol/L Low 5-15 [facility] Serum or plasma calcium tripp urement (mass/volume)on 09-30-2024 Calcium [Mass/Vol] 9.0 mg/dL 8.5-10.1 [facility] Serum or plasma creatinine m easurement (mass/volume)on 09-30-2024 Creatinine [Mass/Vol] 1.02 mg/dL 0.55-1.02 [facility] Comment on above: The validity of the calculated GFR & GFRAA in patients over 70 years has not been determined. Clinical correlation is essential. Serum or plasma urea nitroge n measurement (mass/volume)on 09-30-2024 Urea nitrogen [Mass/Vol] 19 mg/dL High 7-18 [facility] Sodium levelon 09-30-2024 Sodium [Moles/Vol] 141 mmol/L 136-145 [facility] White blood cell (WBC) count on 09-30-2024 WBC (Bld) [#/Vol] 5.9 10*3/uL 4.4-11.0 [facility] 12 Lead EKG performed by [facility] on 09-14-2024 12 Lead EKG performed by [facility] [address] [place] [address] 12 Lead EKG performed by [facility] 09/14/24808 MR#: [id number] Acct: [id number] Name: RADHA THOMAS Rep #: [id number] : 1955 69 From: Joy Dennis Attending Dr: PAOLO Sewell Status: DEP AMB Ordering Dr: Joy Baltazar Date: 05/31 Location: [facility] Sex: F C Admitted: BMS/12 Lead EKG performed by [facility] ECG Report Interpretation -----atrial fibrillation Low voltage in precordial leads. -Nonspecific QRS widening. - Nonspecific T-abnormality. ABNORMAL Electronically signed on 09/21/2024 at 08:01 by Storm [employer] Version [id number] 09/21/24803 Date Joy BOONE CC: Dr. David Anderson MD Date Dictated: 09/14/24808 Date Transcribed: 09/14/24808 Sales And Merchandising Representative: SATISH Signed Normal [facility] Cardiology Visit Reporton Cardiology Visit Report [facility] [address] [place] [address] OFFICE VISIT Date of Service: 09/14/24 MR#: [id number] Acct: [id number] Name: RADHA THOMAS Rep #: [id number] : 1955 Provider: PAOLO Ruiz Age/Sex: 69/F Location: [facility] Status: Signed HPI HPI History of Present [...] on a beta-clemente and anticoagulation with a [id number] score of 3. Patient did undergo a [...] beats. Patient was seen by EP at [facility]. She is in the process of being [...] (%) 97 Intake Visit Reasons: 3 M FU Care Advocate Required: No Is patient in pain?: No [...] past year?: No PFSH Medical History (Updated 09/14/24 @ 08:57 by [...] external n (more content not included)... Normal [facility] ECG 12-LEADon 09-13-2024 ECG 12-LEAD Ventricular Rate 73 Atrial Rate 150 QRS Duration 98 Q-T Interval 408 QTC Calculation(Bazett) 449 R Gary 31 T Gary 64 QRS Count 13 Q Onset 220 T Offset 424 QTC Fredericia 435 Diagnosis Atrial fibrillation Abnormal ECG No previous ECGs available Confirmed by Lashonda Beltrán ([id number]) on 09/13/2024 3:38:49 PM Normal [facility] Basic Metabolic Profile (BMP )on 08-11-2024 BUN/CRE 18.6 RATIO Normal 10-20 [facility] Comment on above: Performed By: #### L 500.2500, L501.5200 #### [facility] [address] [place], [address] CA,Total 9.3 mg/dL Normal 8.5-10.1 [facility] Comment on above: Performed By: #### L 500.2500, L501.5200 #### [facility] [address] [place], [address] Chloride [Moles/Vol] 107 mmol/L Normal 98-107 [facility] Comment on above: Performed By: #### L 500.2500, L501.5200 #### [facility] [address] [place], [address] CO2 [Moles/Vol] 27.0 mmol/L Normal 21.0-32.0 [facility] Comment on above: Performed By: #### L 500.2500, L501.5200 #### [facility] [address] [place], [address] Creatinine [Mass/Vol] 0.91 mg/dL Normal 0.55-1.02 [facility] Comment on above: Result Comment: The validity of the calculated GFR GFRAA in patients over 70 years has not been determined. Clinical correlation is essential. Performed By: #### L 500.2500, L501.5200 #### [facility] [address] [place], [address] EST GFR - AA 78 mL/min Normal >60 [facility] Comment on above: Result Comment: Afri can [place] GFR Calc Performed By: #### L 500.2500, L501.5200 #### [facility] [address] [place], [address] GAP 3 Low 5-15 [facility] Comment on above: Performed By: #### L 500.2500, L501.5200 #### [facility] [address] [place], [address] GFR/1.73 sq M.predicted among non-blacks MDRD (S/P/Bld) [Vol rate/Area] 65 mL/min/{1.73_m2} Normal >60 [facility] Comment on above: Result Comment: Non- GFR Calc Performed By: #### L 500.2500, L501.5200 #### [facility] [address] [place], [address] Glucose [Mass/Vol] 104 mg/dL Normal 74-106 [facility] Comment on above: Result Comment: Fast ing Glucose result from 100 to 125 mg/dL suggests IMPAIRED HOMEOSTASIS per A.D.A. criteria. Performed By: #### L 500.2500, L501.5200 #### [facility] [address] [place], [address] Potassium [Moles/Vol] 4.6 mmol/L Normal 3.5-5.1 [facility] Comment on above: Performed By: #### L 500.2500, L501.5200 #### [facility] [address] [place], [address] Sodium [Moles/Vol] 137 mmol/L Normal 136-145 [facility] Comment on above: Performed By: #### L 500.2500, L501.5200 #### [facility] [address] [place], [address] Urea nitrogen [Mass/Vol] 17 mg/dL Normal 7-18 [facility] Comment on above: Performed By: #### L 500.2500, L501.5200 #### [facility] [address] [place], [address] Magnesiumon 08-11-2024 Magnesium [Mass/Vol] 2.1 mg/dL Normal 1.6-2.6 [facility] Comment on above: Performed By: #### L 500.2500, L501.5200 #### [facility] [address] [place], [address] 12 Lead EKG performed by [facility] on 07-20-2024 12 Lead EKG performed by [facility] [address] [place] [address] 12 Lead EKG performed by [facility] 07/20/24 0759 MR#: [id number] Acct: [id number] Name: RADHA THOMAS Rep #: [id number] : 1955 69 From: Joy Dennis Attending Dr: PAOLO Sewell Status: DEP AMB Ordering Dr: Joy Baltazar PA Date: 07/09 01/01 Location: [facility] Sex: F C Admitted: BMS/12 Lead EKG performed by [facility] ECG Report Interpretation -----atrial fibrillation - Diffuse nonspecific T-abnormality. Low voltage -possible pulmonary disease. ABNORMAL Electronically signed on 07/20/2024 at 15:53 by Storm Ryanwood Software Version [id number] 07/20/24 1557 Date Joy BOONE CC: Dr. David Anderson MD Date Dictated: 07/20/24758 Date Transcribed: 07/20/24758 Sales And Merchandising Representative: SATISH Signed Normal [facility] Procedure Reporton Procedure Report [facility] Medical Records Department [address] [place] [address] Procedure Report 07/13/24 1317 MR#: [id number] Acct: [id number] Name: RADHA THOMAS Rep #: [id number] : 1955 69 From: Leonid Marcano DO PCP: Dr. David Anderson MD Status:REG [facility] Location: [facility] Procedure Report Date of Procedure: 07/13/24 CONSCIOUS SEDATION REPORT DATE OF SERVICE: July 13, 2024 BRIEF HISTORY OF PRESENT ILLNESS: The patient is a 68-year-old female who presented to [facility] for an elective outpatient cardioversion due to [...] MD; Dr. Leonid Marcano DO Signed Normal [facility] Procedure Report [facility] Medical Records Department [address] [place] [address] Procedure Report 07/13/24 1246 MR#: [id number] Acct: [id number] Name: RADHA THOMAS Rep #: [id number] : 1955 69 From: Storm Ryan MD PCP: Dr. David Anderson MD Status:REG [facility] Location: [facility] Procedure Report Date of Procedure: 07/13/24 DC [...] MD; Dr. Storm Ryan MD Signed Normal [facility] Basic Metabolic Profile (BMP )on 06-29-2024 BUN/CRE 16.8 RATIO Normal 10-20 [facility] Comment on above: Performed By: #### L 500.2500, L300.3900 #### [facility] [address] [place], [address] CA,Total 9.6 mg/dL Normal 8.5-10.1 [facility] Comment on above: Performed By: #### L 500.2500, L300.3900 #### [facility] [address] [place], [address] Chloride [Moles/Vol] 107 mmol/L Normal 98-107 [facility] Comment on above: Performed By: #### L 500.2500, L300.3900 #### [facility] [address] [place], [address] CO2 [Moles/Vol] 29.0 mmol/L Normal 21.0-32.0 [facility] Comment on above: Performed By: #### L 500.2500, L300.3900 #### [facility] [address] [place], [address] Creatinine [Mass/Vol] 1.07 mg/dL High 0.55-1.02 [facility] Comment on above: Result Comment: The validity of the calculated GFR GFRAA in patients over 70 years has not been determined. Clinical correlation is essential. Performed By: #### L 500.2500, L300.3900 #### [facility] [address] [place], [address] EST GFR - AA 65 mL/min Normal >60 [facility] Comment on above: Result Comment: Afri can Montenegrin GFR Calc Performed By: #### L 500.2500, L300.3900 #### [facility] [address] [place], [address] GAP 4 Low 5-15 [facility] Comment on above: Performed By: #### L 500.2500, L300.3900 #### [facility] [address] [place], [address] GFR/1.73 sq M.predicted among non-blacks MDRD (S/P/Bld) [Vol rate/Area] 54 mL/min/{1.73_m2} Low >60 [facility] Comment on above: Result Comment: Non- GFR Calc Performed By: #### L 500.2500, L300.3900 #### [facility] [address] [place], [address] Glucose [Mass/Vol] 106 mg/dL Normal 74-106 [facility] Comment on above: Result Comment: Fast ing Glucose result from 100 to 125 mg/dL suggests IMPAIRED HOMEOSTASIS per A.D.A. criteria. Performed By: #### L 500.2500, L300.3900 #### [facility] [address] [place], [address] Potassium [Moles/Vol] 4.5 mmol/L Normal 3.5-5.1 [facility] Comment on above: Performed By: #### L 500.2500, L300.3900 #### [facility] [address] [place], [address] Sodium [Moles/Vol] 140 mmol/L Normal 136-145 [facility] Comment on above: Performed By: #### L 500.2500, L300.3900 #### [facility] [address] [place], [address] Urea nitrogen [Mass/Vol] 18 mg/dL Normal 7-18 [facility] Comment on above: Performed By: #### L 500.2500, L300.3900 #### [facility] [address] [place], [address] Chest PA and Lateralon 06-29 Chest PA and Lateral [facility] Imaging Services [address] [place] [address] Chest PA and Lateral MR#: [id number] Acct: [id number] Name: RADHA THOMAS Rep #: [id number] : 1955 F 68 From: Juarez Villaseñor MD PCP: Dr. David Anderson MD Status: PRE [facility] Study: Chest PA and Lateral Date of Exam: 06/29/24 Exam# [id number] Ordering Dr: Storm Ryan MD [id number] INDICATION: MCMULLEN EXAMINATION/TECHNIQUE : X-RAY - XR [...] David Anderson MD; Dr. Storm Ryan MD Sales And Merchandising Representative: Signed Normal [facility] Dexa Bone Density Studyon Dexa Bone Density Study [facility] Imaging Services [address] [place] [address] Dexa Bone Density Study MR#: [id number] Acct: [id number] Name: RADHA THOMAS Rep #: [id number] : 1955 F 68 From: Matt bonilla MD PCP: Dr. David Anderson MD Status: REG CLI Study: Dexa Bone Density Study Date of Exam: 06/29/24 Exam# [id number] Ordering Dr: David Anderson [id number] STUDY: DUAL ENERGY X-RAY ABSORPTIOMETRY / DXA [...] Signed: Matt Cao MD at 8:44 EDT Reading Location ID and State: [facility] / [place] , Service support , CC: Dr. David Anderson MD Sales And Merchandising Representative: Signed Normal [facility] Prothrombin Time w/INRon INR Coag (PPP) [Relative time] 1.1 {INR} Normal [facility] Comment on above: Performed By: #### L 500.2500, L300.3900 #### [facility] [address] [place], [place], [address] PT Coag (PPP) [Time] 13.8 s Normal 11.7-14.9 [facility] Comment on above: Performed By: #### L 500.2500, L300.3900 #### [facility] [address] [place], [place], [address] SCRN MAMM (CAD)W/JOAQUIN BILATo n 06-29-2024 SCRN MAMM (CAD)W/JOAQUIN BILAT [facility] Imaging Services [address] [place] [address] SCRN MAMM (CAD)W/JOAQUIN BILAT MR#: [id number] Acct: [id number] Name: RADHA THOMAS Rep #: [id number] : 1955 F 68 From: Matt bonilla MD PCP: Dr. David Anderson MD Status: REG CL Study: SCRN MAMM (CAD)W/JOAQUIN BILAT Date of Exam: 06/09 01/01 Exam# [id number] Ordering Dr: David Anderson [id number] MAMMOGRAPHY - BILATERAL SCREENING REASON FOR EXAM: [...] delay biopsy of a clinically suspicious abnormality. [id number] Electronically Signed: Matt Cao MD at 8:19 EDT , CC: Dr. David Anderson MD Sales And Merchandising Representative: Signed Normal [facility] 12 Lead EKG performed by [facility] on 06-09-2024 12 Lead EKG performed by [facility] [address] [place] [address] 12 Lead EKG performed by [facility] 06/09/241100 MR#: [id number] Acct: [id number] Name: RADHA THOMAS Rep #: [id number] : 1955 68 From: Storm Ryan MD Attending Dr: Dr. Storm Ryan MD Status: DEP A MB Ordering Dr: Storm Ryan MD Date: 06/09/24 Location: [facility] [place] Sex: F C Admitted: [facility]/12 Lead EKG performed by [facility] ECG Report Interpretation ----- atrial fibrillation -Old anterior infarct. Low voltage -possible pulmonary disease. ABNORMAL Electronically signed on 06/14/2024 at 07:34 by Storm Ryan [employer] Software Version [id number] 06/14/24 0738 Date Storm Ryan MD CC: Dr. David Anderson MD Date Dictated: 06/09/241100 Date Transcribed: 08/02/24 1101 Sales And Merchandising Representative: [place] Signed Normal [facility] Cardiology Visit Reporton Cardiology Visit Report [facility] [address] [place] [address] OFFICE VISIT Date of Service: 06/09/24 MR#: [id number] Acct: [id number] Name: RADHA THOMAS Rep #: [id number] : 1955 Provider: Dr. Storm Ryan MD Age/Sex: 68/F Location: [facility] Status: Signed HPI HPI History of [...] on a beta-clemente and anticoagulation with a [id number] score of 3. 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 Normal [facility] Basophil percentageOrdered B y: Connor Anderson on 01-14-2024 Chloride [Moles/Vol] 109 mmol/L 98-107 [facility] Cholesterol [Mass/Vol] 204 mg/dL <200 [facility] Comment on above: <200 mg/dL Desirable 200-240 mg/dL Borderline >240 mg/dL High Risk Glucose [Mass/Vol] 102 mg/dL 74-106 [facility] Comment on above: Fasting Glucose resu lt from 100 to 125 mg/dL suggests IMPAIRED HOMEOSTASIS per A.D.A. criteria. Potassium [Moles/Vol] 4.0 mmol/L 3.5-5.1 [facility] Sodium [Moles/Vol] 141 mmol/L 136-145 [facility] Triglyceride [Mass/Vol] 35 mg/dL <199 [facility] Comment on above: The drugs N-Acetylcy steine and Metamizole may falsely depress this assay.Serum Triglycerides Reference Interval Normal <150 mg/dL Borderline high 150 - 199 mg/dL High 200 - 499 mg/dL Very High > or = 500 mg/dL Laboratory - Chemistry and C hemistry - challengeOrdered By: Connor Anderson on 01-14-2024 Cholesterol in HDL [Mass/Vol] 79 mg/dL >40 [facility] Comment on above: The drugs N-Acetylcy steine and Metamizole may falsely depress this assay. Reference Range HDL <40 mg/dL Low HDL Cholesterol HDL >or= 60 mg/dL High HDL Cholesterol Cholesterol in LDL [Mass/Vol] 118 mg/dL 0-130 [facility] CO2 [Moles/Vol] 27.0 mmol/L 21.0-32.0 [facility] Urea nitrogen/Creatinine [Mass ratio] 15.8 mg/mg 10-20 [facility] No Panel InformationOrdered By: Connor Anderson on 01-14-2024 Estimated GFR (MDRD) Amer 75 mL/min >60 [facility] Comment on above: GFR Calc Estimated GFR (MDRD) Non-Af Amer 62 mL/min >60 [facility] Comment on above: Non- GFR Calc Free Triiodothyronine (T3) pg/dL 2.2 pg/mL 2.18-3.98 [facility] VLDL Cholesterol 7 mg/dL 5-40 [facility] Serum or plasma calcium tripp urement (mass/volume)Ordered By: Connor Anderson on 01-14-2024 Calcium [Mass/Vol] 9.1 mg/dL 8.5-10.1 [facility] Serum or plasma creatinine m easurement (mass/volume)Ordered By: Connor Anderson on 01-14-2024 Creatinine [Mass/Vol] 0.95 mg/dL 0.55-1.02 [facility] Comment on above: The validity of the calculated GFR & GFRAA in patients over 70 years has not been determined. Clinical correlation is essential. Serum or plasma thyroid stim ulating hormone (TSH) measurement (units/volume)Ordered By: Connor Anderson on 01-14-2024 TSH Qn 2.25 uIU/mL 0.358-3.74 [facility] Serum or plasma urea nitroge n measurement (mass/volume)Ordered By: Connor Anderson on 01-14-2024 Urea nitrogen [Mass/Vol] 15 mg/dL 7-18 [facility] Thin prep Papanicolaou smear with manual screeningOrdered By: Connor Anderson on 01-14-2024 Thin prep Papanicolaou smear with manual screening 5 5-15 [facility] Thin prep Papanicolaou smear with manual screening 0.95 ng/dL 0.76-1.46 [facility] Basophil percentageOrdered B y: Tryo Carvalho on 06-28-2023 WBC (Bld) [#/Vol] 5.3 10*3/uL 4.4-11.0 [facility] Blood erythrocytes count (nu mber/volume)Ordered By: Troy Carvalho on 06-28-2023 RBC (Bld) [#/Vol] 3.96 10*6/uL 4.2-5.4 [facility] Blood hemoglobin measurement (mass/volume)Ordered By: Troy Carvahlo on 06-28-2023 Hemoglobin (Bld) [Mass/Vol] 11.5 g/dL 12.0-15.0 [facility] Blood platelet mean volumeOr dered By: Troy Carvalho on 06-28-2023 Platelet mean volume (Bld) [Entitic vol] 11.4 fL 6.2-12.0 [facility] Determination of erythrocyte mean corpuscular volume (MCV)Ordered By: Troy Carvalho on 06-28-2023 MCV (RBC) [Entitic vol] 89.4 fL 81-99 [facility] Hematocrit Auto (Bld) [Volum e fraction]Ordered By: Troy Carvalho on 06-28-2023 Hematocrit (Bld) [Volume fraction] 35.4 % 37-47 [facility] Laboratory - Hematology and Cell countsOrdered By: Troy Carvalho on 06-28-2023 Erythrocyte distribution width (RBC) [Entitic vol] 39.9 fL 35.1-43.9 [facility] Erythrocyte distribution width (RBC) [Ratio] 12.2 % 11.6-14.6 [facility] MCH (RBC) [Entitic mass] 29.0 pg 27.0-32.0 [facility] MCHC Auto (RBC) [Mass/Vol]Or dered By: Troy Carvalho on 06-28-2023 MCHC (RBC) [Mass/Vol] 32.5 g/dL 32-36 [facility] Platelets bldOrdered By: Saurav Carvalho on 06-28-2023 Platelets (Bld) [#/Vol] 174 10*3/uL 150-450 [facility] Basophil percentageOrdered B y: Connor Anderson on 06-22-2023 Chloride [Moles/Vol] 107 mmol/L 98-107 [facility] Cholesterol [Mass/Vol] 199 mg/dL <200 [facility] Comment on above: <200 mg/dL Desirable 200-240 mg/dL Borderline >240 mg/dL High Risk Glucose [Mass/Vol] 103 mg/dL 74-106 [facility] Comment on above: Fasting Glucose resu lt from 100 to 125 mg/dL suggests IMPAIRED HOMEOSTASIS per A.D.A. criteria. Potassium [Moles/Vol] 4.4 mmol/L 3.5-5.1 [facility] Sodium [Moles/Vol] 138 mmol/L 136-145 [facility] Triglyceride [Mass/Vol] 41 mg/dL <199 [facility] Comment on above: The drugs N-Acetylcy steine and Metamizole may falsely depress this assay.Serum Triglycerides Reference Interval Normal <150 mg/dL Borderline high 150 - 199 mg/dL High 200 - 499 mg/dL Very High > or = 500 mg/dL Laboratory - Chemistry and C hemistry - challengeOrdered By: Connor Anderson on 06-22-2023 CO2 [Moles/Vol] 27.0 mmol/L 21.0-32.0 [facility] Urea nitrogen/Creatinine [Mass ratio] 12.5 mg/mg 10-20 [facility] No Panel InformationOrdered By: Connor Anderson on 06-22-2023 Estimated GFR (MDRD) Amer 68 mL/min >60 [facility] Comment on above: GFR Calc Estimated GFR (MDRD) Non-Af Amer 56 mL/min >60 [facility] Comment on above: Non- GFR Calc Thyroid Stimulating Hormone (TSH) 1.92 uIU/mL 0.358-3.74 [facility] Vitamin D 25-Hydroxy 71.3 ng/mL [facility] Comment on above: Vitamin D 25(OH) Sta tus Range Deficiency <20 ng/mL (50nmol/L) Insufficiency 20 - 30 ng/mL (50 - 75 nmol/L) Sufficiency 30 - 100 ng/mL (75 - 250 nmol/L) Toxicity >100 ng/mL (>250 nmol/L) Serum or plasma calcium tripp urement (mass/volume)Ordered By: Connor Anderson on 06-22-2023 Calcium [Mass/Vol] 9.2 mg/dL 8.5-10.1 [facility] Serum or plasma cholesterol in HDL measurement (mass/volume)Ordered By: Connor Anderson on 06-22-2023 Cholesterol in HDL [Mass/Vol] 74 mg/dL >40 [facility] Comment on above: The drugs N-Acetylcy steine and Metamizole may falsely depress this assay. Reference Range HDL <40 mg/dL Low HDL Cholesterol HDL >or= 60 mg/dL High HDL Cholesterol Serum or plasma cholesterol in VLDL measurement (mass/volume)Ordered By: Connor Anderson on 06-22-2023 Cholesterol in VLDL [Mass/Vol] 8 mg/dL 5-40 [facility] Serum or plasma creatinine m easurement (mass/volume)Ordered By: Connor Anderson on 06-22-2023 Creatinine [Mass/Vol] 1.04 mg/dL 0.55-1.02 [facility] Comment on above: The validity of the calculated GFR & GFRAA in patients over 70 years has not been determined. Clinical correlation is essential. Serum or plasma low density lipoprotein (LDL) cholesterol measurement (mass/volume)Ordered By: Connor Anderson on 06-22-2023 Cholesterol in LDL [Mass/Vol] 117 mg/dL 0-130 [facility] Serum or plasma urea nitroge n measurement (mass/volume)Ordered By: Connor Anderson on 06-22-2023 Urea nitrogen [Mass/Vol] 13 mg/dL 7-18 [facility] Thin prep Papanicolaou smear with manual screeningOrdered By: Connor Anderson on 06-22-2023 Thin prep Papanicolaou smear with manual screening 4 5-15 [facility] Laboratory - Chemistry and C hemistry - challengeOrdered By: Dr. Anderson on 12-18-2022 Free T4 [Mass/Vol] 1.13 ng/dL 0.76-1.46 [facility] No Panel InformationOrdered By: Dr. Anderson on 12-18-2022 Thyroid Stimulating Hormone (TSH) 2.14 uIU/mL 0.358-3.74 [facility] Absolute lymphocyte countOrd ered By: Thais Lobo on 09-18-2022 Lymphocytes Auto (Unsp spec) [#/Vol] 1.43 10*3/uL 0.83-4.51 [facility] Basophil percentageOrdered B y: Thais Lobo on 09-18-2022 Basophils/100 WBC (Bld) 1.5 % 0-1 [facility] Bilirubin [Mass/Vol] 0.40 mg/dL 0.20-1.00 [facility] Comment on above: For patients on eltr ombopag therapy, use of Dimension Dulzura TBIL is not recommended. Chloride [Moles/Vol] 109 mmol/L 98-107 [facility] Cholesterol [Mass/Vol] 179 mg/dL <200 [facility] Comment on above: <200 mg/dL Desirable 200-240 mg/dL Borderline >240 mg/dL High Risk Eosinophils/100 WBC (Bld) 3.4 % 0-5 [facility] Glucose [Mass/Vol] 107 mg/dL 74-106 [facility] Comment on above: Fasting Glucose resu lt from 100 to 125 mg/dL suggests IMPAIRED HOMEOSTASIS per A.D.A. criteria. Neutrophils (Bld) [#/Vol] 2.7 10*3/uL 2.0-7.7 [facility] Neutrophils/100 WBC (Bld) 57.7 % 47-70 [facility] Potassium [Moles/Vol] 4.3 mmol/L 3.5-5.1 [facility] Protein [Mass/Vol] 7.3 g/dL 6.4-8.2 [facility] Sodium [Moles/Vol] 140 mmol/L 136-145 [facility] Triglyceride [Mass/Vol] 55 mg/dL <199 [facility] Comment on above: The drugs N-Acetylcy steine and Metamizole may falsely depress this assay.Serum Triglycerides Reference Interval Normal <150 mg/dL Borderline high 150 - 199 mg/dL High 200 - 499 mg/dL Very High > or = 500 mg/dL WBC (Bld) [#/Vol] 4.7 10*3/uL 4.4-11.0 [facility] Blood erythrocytes count (nu mber/volume)Ordered By: Thais Lobo on 09-18-2022 RBC (Bld) [#/Vol] 3.81 10*6/uL 4.2-5.4 [facility] Blood hemoglobin measurement (mass/volume)Ordered By: Thais Lobo on 09-18-2022 Hemoglobin (Bld) [Mass/Vol] 11.3 g/dL 12.0-15.0 [facility] Blood lymphocytes/100 leukoc ytesOrdered By: [facility] Lashell on 09-18-2022 Lymphocytes/100 WBC (Bld) 30.6 % 19-41 [facility] Blood monocytes/100 leukocyt esOrdered By: [facility] Lashell on 09-18-2022 Monocytes/100 WBC (Bld) 6.4 % 0-10 [facility] Blood platelet mean volumeOr dered By: Thaislexis Lobo on 09-18-2022 Platelet mean volume (Bld) [Entitic vol] 12.1 fL 6.2-12.0 [facility] Determination of erythrocyte mean corpuscular volume (MCV)Ordered By: Thaislexis Lobo on 09-18-2022 MCV (RBC) [Entitic vol] 89.8 fL 81-99 [facility] Hematocrit Auto (Bld) [Volum e fraction]Ordered By: [facility] on 09-18-2022 Hematocrit (Bld) [Volume fraction] 34.2 % 37-47 [facility] Laboratory - Chemistry and C hemistry - challengeOrdered By: [facility] on 09-18-2022 ALP [Catalytic activity/Vol] 66 U/L 45-117 [facility] ALT [Catalytic activity/Vol] 39 U/L 13-56 [facility] CO2 [Moles/Vol] 24.0 mmol/L 21.0-32.0 [facility] Free T4 [Mass/Vol] 0.90 ng/dL 0.76-1.46 [facility] Globulin (S) [Mass/Vol] 3.6 g/dL 2.2-4.2 [facility] Urea nitrogen/Creatinine [Mass ratio] 18.8 mg/mg 10-20 [facility] Laboratory - Hematology and Cell countsOrdered By: Thaissharri Lobo on 09-18-2022 Erythrocyte distribution width (RBC) [Entitic vol] 43.6 fL 35.1-43.9 [facility] Erythrocyte distribution width (RBC) [Ratio] 13.3 % 11.6-14.6 [facility] Immature granulocytes/100 WBC (Bld) 0.400 % 0.0-0.9 [facility] Comment on above: IG% - Immature Granu locytes (promyelocytes, myelocytes and metamyelocytes) > 1% indicates that a LEFT SHIFT is Present. MCH (RBC) [Entitic mass] 29.7 pg 27.0-32.0 [facility] Nucleated RBC/100 WBC (Bld) [Ratio] 0 % 0-5 [facility] MCHC Auto (RBC) [Mass/Vol]Or dered By: Thais Lobo on 09-18-2022 MCHC (RBC) [Mass/Vol] 33.0 g/dL 32-36 [facility] No Panel InformationOrdered By: Thais Lobo on 09-18-2022 Estimated GFR (MDRD) Amer 75 mL/min >60 [facility] Comment on above: GFR Calc Estimated GFR (MDRD) Non-Af Amer 62 mL/min >60 [facility] Comment on above: Non- GFR Calc Free Triiodothyronine (T3) pg/dL 2.7 pg/mL 2.18-3.98 [facility] Thyroid Stimulating Hormone (TSH) 4.20 uIU/mL 0.358-3.74 [facility] Platelets bldOrdered By: Josiah tllexis Statmayitooulmicki on 09-18-2022 Platelets (Bld) [#/Vol] 176 10*3/uL 150-450 [facility] Serum or plasma albumin tripp urement (mass/volume)Ordered By: Thais Stathopoulmicki on 09-18-2022 Albumin [Mass/Vol] 3.7 g/dL 3.2-5.0 [facility] Serum or plasma albumin/glob ulin mass ratioOrdered By: Thais Stathopoulos on 09-18-2022 Albumin/Globulin [Mass ratio] 1.0 {ratio} 0.9-2.4 [facility] Serum or plasma calcium tripp urement (mass/volume)Ordered By: Thais Lobo on 09-18-2022 Calcium [Mass/Vol] 8.5 mg/dL 8.5-10.1 [facility] Serum or plasma cholesterol in HDL measurement (mass/volume)Ordered By: Thais Lobo on 09-18-2022 Cholesterol in HDL [Mass/Vol] 83 mg/dL >40 [facility] Comment on above: The drugs N-Acetylcy steine and Metamizole may falsely depress this assay. Reference Range HDL <40 mg/dL Low HDL Cholesterol HDL >or= 60 mg/dL High HDL Cholesterol Serum or plasma cholesterol in VLDL measurement (mass/volume)Ordered By: Thaissharri Lobo on 09-18-2022 Cholesterol in VLDL [Mass/Vol] 11 mg/dL 5-40 [facility] Serum or plasma creatinine m easurement (mass/volume)Ordered By: Thais [facility] hospital[facility] on 09-18-2022 Creatinine [Mass/Vol] 0.96 mg/dL 0.55-1.02 [facility] Comment on above: The validity of the calculated GFR & GFRAA in patients over 70 years has not been determined. Clinical correlation is essential. Serum or plasma low density lipoprotein (LDL) cholesterol measurement (mass/volume)Ordered By: Thais Pecktimpanogos regional hospitaljohn on 09-18-2022 Cholesterol in LDL [Mass/Vol] 85 mg/dL 0-130 [facility] Serum or plasma urea nitroge n measurement (mass/volume)Ordered By: [facility] 09-18[facility]2022 Urea nitrogen [Mass/Vol] 18 mg/dL 7-18 [facility] Thin prep Papanicolaou smear with manual screeningOrdered By: [facility] Lashell on 09-18-2022 Thin prep Papanicolaou smear with manual screening 20 U/L 15-37 [facility] Thin prep Papanicolaou smear with manual screening 7 5-15 [facility] Absolute lymphocyte counton 08-05-2022 Lymphocytes Auto (Unsp spec) [#/Vol] 1.76 10*3/uL 0.83-4.51 [facility] Work Phone: Basophil percentageon 2021 Basophils/100 WBC (Bld) 0.9 % 0-1 [facility] Work Phone: Bilirubin [Mass/Vol] 0.40 mg/dL 0.20-1.00 [facility] Work Phone: Comment on above: For patients on eltr ombopag therapy, use of Dimension Dulzura TBIL is not recommended. Chloride [Moles/Vol] 108 mmol/L 98-107 [facility] Work Phone: Eosinophils/100 WBC (Bld) 3.6 % 0-5 [facility] Work Phone: Glucose [Mass/Vol] 110 mg/dL 74-106 [facility] Work Phone: Comment on above: Fasting Glucose resu lt from 100 to 125 mg/dL suggests IMPAIRED HOMEOSTASIS per A.D.A. criteria. Neutrophils (Bld) [#/Vol] 3.1 10*3/uL 2.0-7.7 [facility] Work Phone: Neutrophils/100 WBC (Bld) 56.9 % 47-70 [facility] Work Phone: Potassium [Moles/Vol] 4.1 mmol/L 3.5-5.1 [facility] Work Phone: Protein [Mass/Vol] 7.5 g/dL 6.4-8.2 [facility] Work Phone: Sodium [Moles/Vol] 139 mmol/L 136-145 [facility] Work Phone: WBC (Bld) [#/Vol] 5.5 10*3/uL 4.4-11.0 [facility] Work Phone: Blood erythrocytes count (nu mber/volume)on 08-05-2022 RBC (Bld) [#/Vol] 4.58 10*6/uL 4.2-5.4 [facility] Work Phone: Blood hemoglobin measurement (mass/volume)on 08-05-2022 Hemoglobin (Bld) [Mass/Vol] 13.1 g/dL 12.0-15.0 [facility] Work Phone: Blood lymphocytes/100 leukoc yteson 08-05-2022 Lymphocytes/100 WBC (Bld) 31.8 % 19-41 [facility] Work Phone: [phone] Blood monocytes/100 leukocyt eson 08-05-2022 Monocytes/100 WBC (Bld) 6.3 % 0-10 [facility] Work Phone: Blood platelet mean volumeon 08-05-2022 Platelet mean volume (Bld) [Entitic vol] 12.3 fL 6.2-12.0 [facility] Work Phone: Determination of erythrocyte mean corpuscular volume (MCV)on 08-05-2022 MCV (RBC) [Entitic vol] 89.7 fL 81-99 [facility] Work Phone: Hematocrit Auto (Bld) [Volum e fraction]on 08-05-2022 Hematocrit (Bld) [Volume fraction] 41.1 % 37-47 [facility] Work Phone: Laboratory - Chemistry and C hemistry - challengeon 08-05-2022 ALP [Catalytic activity/Vol] 66 U/L 45-117 [facility] Work Phone: ALT [Catalytic activity/Vol] 47 U/L 13-56 [facility] Work Phone: CO2 [Moles/Vol] 23.0 mmol/L 21.0-32.0 [facility] Work Phone: Free T4 [Mass/Vol] 0.98 ng/dL 0.76-1.46 [facility] Work Phone: Globulin (S) [Mass/Vol] 3.9 g/dL 2.2-4.2 [facility] Work Phone: Urea nitrogen/Creatinine [Mass ratio] 13.8 mg/mg 10-20 [facility] Work Phone: Laboratory - Hematology and Cell countson 08-05-2022 Erythrocyte distribution width (RBC) [Entitic vol] 42.5 fL 35.1-43.9 [facility] Work Phone: Erythrocyte distribution width (RBC) [Ratio] 13.1 % 11.6-14.6 [facility] Work Phone: Immature granulocytes/100 WBC (Bld) 0.500 % 0.0-0.9 [facility] Work Phone: Comment on above: IG% - Immature Granu locytes (promyelocytes, myelocytes and metamyelocytes) > 1% indicates that a LEFT SHIFT is Present. MCH (RBC) [Entitic mass] 28.6 pg 27.0-32.0 [facility] Work Phone: Nucleated RBC/100 WBC (Bld) [Ratio] 0 % 0-5 [facility] Work Phone: MCHC Auto (RBC) [Mass/Vol]on 08-05-2022 MCHC (RBC) [Mass/Vol] 31.9 g/dL 32-36 [facility] Work Phone: No Panel Informationon 08-05 Estimated GFR (MDRD) Amer 76 mL/min >60 [facility] Work Phone: Comment on above: GFR Calc Estimated GFR (MDRD) Non-Af Amer 63 mL/min >60 [facility] Work Phone: Comment on above: Non- GFR Calc Thyroid Stimulating Hormone (TSH) 4.04 uIU/mL 0.358-3.74 [facility] Work Phone: Platelets bldon 08-05-2022 Platelets (Bld) [#/Vol] 181 10*3/uL 150-450 [facility] Work Phone: Serum or plasma albumin tripp urement (mass/volume)on 08-05-2022 Albumin [Mass/Vol] 3.6 g/dL 3.2-5.0 [facility] Work Phone: Serum or plasma albumin/glob ulin mass ratioon 08-05-2022 Albumin/Globulin [Mass ratio] 0.9 {ratio} 0.9-2.4 [facility] Work Phone: Serum or plasma calcium tripp urement (mass/volume)on 08-05-2022 Calcium [Mass/Vol] 8.9 mg/dL 8.5-10.1 [facility] Work Phone: Serum or plasma creatinine m easurement (mass/volume)on 08-05-2022 Creatinine [Mass/Vol] 0.94 mg/dL 0.55-1.02 [facility] Work Phone: Comment on above: The validity of the calculated GFR & GFRAA in patients over 70 years has not been determined. Clinical correlation is essential. Serum or plasma urea nitroge n measurement (mass/volume)on 08-05-2022 Urea nitrogen [Mass/Vol] 13 mg/dL 7-18 [facility] Work Phone: Thin prep Papanicolaou smear with manual screeningon 08-05-2022 Thin prep Papanicolaou smear with manual screening 24 U/L 15-37 [facility] Work Phone: Thin prep Papanicolaou smear with manual screening 8 5-15 [facility] Work Phone: Basophil percentageon 2021 Chloride [Moles/Vol] 107 mmol/L 98-107 [facility] Work Phone: Cholesterol [Mass/Vol] 215 mg/dL <[address] [facility] Work Phone: Comment on above: <200 mg/dL Desirable 200-240 mg/dL Borderline >240 mg/dL High Risk Glucose [Mass/Vol] 92 mg/dL 74-106 [facility] Work Phone: Potassium [Moles/Vol] 4.5 mmol/L 3.5-5.1 [facility] Work Phone: Sodium [Moles/Vol] 140 mmol/L 136-145 [facility] Work Phone: Triglyceride [Mass/Vol] 62 mg/dL <199 [facility] Work Phone: Comment on above: The drugs N-Acetylcy steine and Metamizole may falsely depress this assay.Serum Triglycerides Reference Interval Normal <150 mg/dL Borderline high 150 - 199 mg/dL High 200 - 499 mg/dL Very High > or = 500 mg/dL Laboratory - Chemistry and C hemistry - challengeon 04-21-2022 CO2 [Moles/Vol] 28.0 mmol/L 21.0-32.0 [facility] Work Phone: Urea nitrogen/Creatinine [Mass ratio] 16.0 mg/mg 10-20 [facility] Work Phone: No Panel Informationon 04-21 Estimated GFR (MDRD) Amer 83 mL/min >60 [facility] Work Phone: Comment on above: GFR Calc Estimated GFR (MDRD) Non-Af Amer 68 mL/min >60 [facility] Work Phone: Comment on above: Non- GFR Calc Thyroid Stimulating Hormone (TSH) 3.32 uIU/mL 0.358-3.74 [facility] Work Phone: Vitamin D 25-Hydroxy 50.6 ng/mL [facility] Work Phone: Comment on above: Vitamin D 25(OH) Sta tus Range Deficiency <20 ng/mL (50nmol/L) Insufficiency 20 - 30 ng/mL (50 - 75 nmol/L) Sufficiency 30 - 100 ng/mL (75 - 250 nmol/L) Toxicity >100 ng/mL (>250 nmol/L) Serum or plasma calcium tripp urement (mass/volume)on 04-21-2022 Calcium [Mass/Vol] 9.1 mg/dL 8.5-10.1 [facility] Work Phone: Serum or plasma cholesterol in HDL measurement (mass/volume)on 04-21-2022 Cholesterol in HDL [Mass/Vol] 77 mg/dL >40 [facility] Work Phone: Comment on above: The drugs N-Acetylcy steine and Metamizole may falsely depress this assay. Reference Range HDL <40 mg/dL Low HDL Cholesterol HDL >or= 60 mg/dL High HDL Cholesterol Serum or plasma cholesterol in VLDL measurement (mass/volume)on 04-21-2022 Cholesterol in VLDL [Mass/Vol] 12 mg/dL 5-40 [facility] Work Phone: Serum or plasma creatinine m easurement (mass/volume)on 04-21-2022 Creatinine [Mass/Vol] 0.88 mg/dL 0.55-1.02 [facility] Work Phone: Comment on above: The validity of the calculated GFR & GFRAA in patients over 70 years has not been determined. Clinical correlation is essential. Serum or plasma low density lipoprotein (LDL) cholesterol measurement (mass/volume)on 04-21-2022 Cholesterol in LDL [Mass/Vol] 126 mg/dL 0-130 [facility] Work Phone: Serum or plasma urea nitroge n measurement (mass/volume)on 04-21-2022 Urea nitrogen [Mass/Vol] 14 mg/dL 7-18 [facility] Work Phone: Thin prep Papanicolaou smear with manual screeningon 04-21-2022 Thin prep Papanicolaou smear with manual screening 5 5-15 [facility] Work Phone: Vital Signs Date Time Vital Sign Value Performing Clinician Faci brigettey 05-03-2025 08:13-0400 Body height 165.[address] David Anderson MD Work Phone: [facility] 05-03-2025 08:13-0400 Body mass index (BMI) [Ratio] 31.1 kg/m2 Dr. David Anderson MD Work Phone: [facility] 05-03-2025 08:13-0400 Body weight 84.[address] David Anderson MD Work Phone: [facility] 05-03-2025 08:13-0400 Diastolic blood pressure 86 mm[Hg] Dr. David Anderson MD Work Phone: [facility] 05-03-2025 08:13-0400 Heart rate 69 /min Dr. David Anderson MD Work Phone: [facility] 05-03-2025 08:13-0400 Respiratory rate 16 /min Dr. David Anderson MD Work Phone: [facility] 05-03-2025 08:13-0400 Systolic blood pressure 149 mm[Hg] Dr. David Anderson MD Work Phone: [facility] 04-30-2025 14:37-0400 Body height 166.4 cm Lashonda Beltrán MD Work Phone: [facility] 04-30-2025 14:37-0400 Body mass index (BMI) [Ratio] 29.99 kg/m2 Lashonda Beltrán MD Work Phone: [facility] 04-30-2025 14:37-0400 Body weight 83.01 kg Lashonda Beltrán MD Work Phone: [facility] 04-30-2025 14:37-0400 Diastolic blood pressure 79 mm[Hg] Lashonda Beltrán MD Work Phone: [facility] 04-30-2025 14:37-0400 Heart rate 70 /min Lashonda Beltrán MD Work Phone: [facility] 04-30-2025 14:37-0400 Respiratory rate 18 /min Lashonda Beltrán MD Work Phone: [facility] 04-30-2025 14:37-0400 SaO2% (BldA) [Mass fraction] 98 % Lashodna Beltrán MD Work Phone: [facility] 04-30-2025 14:37-0400 Systolic blood pressure 143 mm[Hg] Lashonda Beltrán MD Work Phone: [facility] 01-10-2025 15:06-0500 Body height 166.4 cm Lashonda Beltrán MD Work Phone: [facility] 01-10-2025 15:06-0500 Body mass index (BMI) [Ratio] 28.51 kg/m2 Lashonda Beltrán MD Work Phone: [facility] 01-10-2025 15:06-0500 Body weight 78.93 kg Lashonda Beltrán MD Work Phone: [facility] 01-10-2025 15:06-0500 Diastolic blood pressure 90 mm[Hg] Lashonda Beltrán MD Work Phone: [facility] 01-10-2025 15:06-0500 Heart rate 70 /min Lashonda Beltrán MD Work Phone: [facility] 01-10-2025 15:06-0500 Respiratory rate 18 /min Lashonda Beltrán MD Work Phone: [facility] 01-10-2025 15:06-0500 SaO2% (BldA) [Mass fraction] 98 % Lashonda Beltrán MD Work Phone: [facility] 01-10-2025 15:06-0500 Systolic blood pressure 166 mm[Hg] Lashonda Beltrán MD Work Phone: [facility] 12-15-2024 11:22-0500 Body temperature 98.2 [degF] Lashonda Beltrán MD Work Phone: [facility] 12-15-2024 11:22-0500 Diastolic blood pressure 75 mm[Hg] Lashonda Beltrán MD Work Phone: [facility] 12-15-2024 11:22-0500 Heart rate 70 /min Lashonda Beltrán MD Work Phone: [facility] 12-15-2024 11:22-0500 Respiratory rate 16 /min Lashonda Beltrán MD Work Phone: [facility] 12-15-2024 11:22-0500 SaO2% (BldA) [Mass fraction] 98 % Lashonda Beltrán MD Work Phone: [facility] 12-15-2024 11:22-0500 Systolic blood pressure 146 mm[Hg] Lashonda Beltrán MD Work Phone: [facility] 12-14-2024 11:24-0500 Body height 165.1 cm Lashonda Beltrán MD Work Phone: [facility] 12-14-2024 11:24-0500 Body mass index (BMI) [Ratio] 28.79 kg/m2 Lashonda Beltrán MD Work Phone: [facility] 12-14-2024 11:24-0500 Body weight 78.47 kg Lashonda Beltrán MD Work Phone: [facility] 12-13-2024 17:05-0500 Diastolic blood pressure 80 mm[Hg] Dr. David Anderson MD Work Phone: [facility] 12-13-2024 17:05-0500 Systolic blood pressure 120 mm[Hg] Dr. David Anderson MD Work Phone: [facility] 12-13-2024 08:36-0500 Body height 165.[address] David Anderson MD Work Phone: [facility] 12-13-2024 08:36-0500 Body mass index (BMI) [Ratio] 28.8 kg/m2 Dr. David Anderson MD Work Phone: [facility] 12-13-2024 08:36-0500 Body weight 78.[address] David Anderson MD Work Phone: [facility] 12-13-2024 08:36-0500 Heart rate 78 /min Dr. David Anderson MD Work Phone: [facility] 12-13-2024 08:36-0500 Respiratory rate 18 /min Dr. David Anderson MD Work Phone: [facility] 12-13-2024 08:36-0500 SaO2% (BldA) [Mass fraction] 96 % Dr. David Anderson MD Work Phone: [facility] 11-15-2024 14:46-0500 Body height 165.1 cm Lashonda Beltrán MD Work Phone: [facility] 11-15-2024 14:46-0500 Body mass index (BMI) [Ratio] 28.29 kg/m2 Lashonda Beltrán MD Work Phone: [facility] 11-15-2024 14:46-0500 Body weight 77.11 kg Lashonda Beltrán MD Work Phone: [facility] 11-15-2024 14:46-0500 Diastolic blood pressure 74 mm[Hg] Lashonda Beltrán MD Work Phone: [facility] 11-15-2024 14:46-0500 Heart rate 91 /min Lashonda Beltrán MD Work Phone: [facility] 11-15-2024 14:46-0500 Respiratory rate 18 /min Lashonda Beltrán MD Work Phone: [facility] 11-15-2024 14:46-0500 SaO2% (BldA) [Mass fraction] 98 % Lashonda Beltrán MD Work Phone: [facility] 11-15-2024 14:46-0500 Systolic blood pressure 119 mm[Hg] Lashonda Beltrán MD Work Phone: [facility] 10-16-2024 15:00-0500 Heart rate 93 /min Lashonda Beltrán MD Work Phone: [facility] 10-16-2024 15:00-0500 Respiratory rate 21 /min Lashonda Beltrán MD Work Phone: [facility] 10-16-2024 15:00-0500 SaO2% (BldA) [Mass fraction] 97 % Lashonda Beltrán MD Work Phone: [facility] 10-16-2024 12:16-0500 Body temperature 96.8 [degF] Lashonda Beltrán MD Work Phone: [facility] 10-16-2024 05:57-0500 Body mass index (BMI) [Ratio] 30.56 kg/m2 Lashonda Beltrán MD Work Phone: [facility] 10-16-2024 05:57-0500 Body weight 83.3 kg Lashonda Beltrán MD Work Phone: [facility] 10-13-2024 20:00-0500 Body height 165.1 cm Lashonda Beltrán MD Work Phone: [facility] 10-13-2024 17:17-0500 Diastolic blood pressure 78 mm[Hg] Lashnoda Beltrán MD Work Phone: [facility] 10-13-2024 17:17-0500 Systolic blood pressure 125 mm[Hg] Lashonda Beltrán MD Work Phone: [facility] 09-13-2024 12:56-0500 Body height 166.4 cm Lashonda Beltrán MD Work Phone: [facility] 09-13-2024 12:56-0500 Body mass index (BMI) [Ratio] 28.35 kg/m2 Lashonda Beltrán MD Work Phone: [facility] 09-13-2024 12:56-0500 Body weight 78.47 kg Lashonda Beltrán MD Work Phone: [facility] 09-13-2024 12:56-0500 Diastolic blood pressure 83 mm[Hg] Lashonda Beltrán MD Work Phone: [facility] 09-13-2024 12:56-0500 Heart rate 73 /min Lashonda Beltrán MD Work Phone: [facility] 09-13-2024 12:56-0500 Systolic blood pressure 144 mm[Hg] Lashonda Beltrán MD Work Phone: [facility] 02-02-2024 14:39-0400 Body height 166.[address] David Anderson Work Phone: [facility] 02-02-2024 14:39-0400 Body mass index (BMI) [Ratio] 26.6 kg/m2 Dr. David Anderson Work Phone: [facility] 02-02-2024 14:39-0400 Body weight 73.[address] David Anderson Work Phone: [facility] 02-02-2024 14:39-0400 Diastolic blood pressure 58 mm[Hg] Dr. David Anderson Work Phone: [facility] 02-02-2024 14:39-0400 Respiratory rate 16 /min Dr. David Anderson Work Phone: [facility] 02-02-2024 14:39-0400 Systolic blood pressure 132 mm[Hg] Dr. David Anderson Work Phone: [facility] 06-28-2023 09:53-0400 Body temperature 98.4 [degF] Dr. Connor Anderson Work Phone: [facility] 06-28-2023 09:53-0400 Diastolic blood pressure 59 mm[Hg] Dr. Connor Anderson Work Phone: [facility] 06-28-2023 09:53-0400 Heart rate 65 /min Dr. Connor Anderson Work Phone: [facility] 06-28-2023 09:53-0400 Respiratory rate 16 /min Dr. Connor Anderson Work Phone: [facility] 06-28-2023 09:53-0400 SaO2% (BldA) [Mass fraction] 96 % Dr. Connor Anderson Work Phone: [facility] 06-28-2023 09:53-0400 Systolic blood pressure 127 mm[Hg] Dr. Connor Anderson Work Phone: [facility] 06-28-2023 06:30-0400 Body height 166.[address] Connor Anderson Work Phone: [facility] 06-28-2023 06:30-0400 Body mass index (BMI) [Ratio] 27 kg/m2 Dr. Connor Anderson Work Phone: [facility] 06-28-2023 06:30-0400 Body weight 74.[address] Connor Anderson Work Phone: [facility] Encounters Encounter Date Encounter Type Care Provider Facility Start: 05-19-2025 End: 05-19-[address] David Anderson MD Work Phone: -Laboratory Start: 05-19-2025 End: 05-19-2025 Patient encounter procedure Joy Baltazar PA -Laboratory Work Phone: Start: 05-19-2025 End: 05-19-2025 ambulatory David Anderson Facility:[facility] Start: 05-03-2025 End: 05-03-2025 Patient encounter procedure Joy Baltazar [place] -[facility] Work Phone: Start: 05-03-2025 End: 05-03-[address] David Anderson MD Work Phone: [facility] Work Phone: Start: 04-30-2025 End: 04-30-2025 Office outpatient visit 25 minutes Lashonda Beltrán MD Work Phone: [facility] Comment on above: Persistent atrial fi brillation (Multi) (Primary Dx); On amiodarone therapy Start: 04-30-2025 End: 04-30-2025 Subsequent hospital visit by physician Joe [facility]tr[facility] Comment on above: Atrial fibrillation, unspecified type (Multi); Presence of cardiac pacemaker Start: 04-30-2025 End: 04-30-2025 ambulatory [facility] Start: 01-22-2025 Non-patient / Non-visit Dr. Leonid villa DO -[facility] Start: 01-22-2025 End: 01-22-[address] David Anderson MD Work Phone: [facility] Work Phone: Start: 01-22-2025 End: 01-22-[address] David Anderson MD Work Phone: -Pulmonary Services/Neurology Work Phone: Start: 01-22-2025 End: 01-22-2025 ambulatory Sia De La Rosa Facility:[facility] Start: 01-12-2025 End: 01-12-[address] David Anderson MD Work Phone: [facility] Work Phone: Start: 01-12-2025 End: 01-12-[address] David Anderson MD Work Phone: -Laboratory Work Phone: Start: 01-12-2025 End: 01-12-2025 ambulatory Sia De La Rosa Facility:[facility] Start: 01-10-2025 End: 01-10-2025 Subsequent hospital visit by physician Joe [facility] Comment on above: Atrial fibrillation, unspecified type (Multi); Presence of cardiac pacemaker Start: 01-10-2025 End: [facility] Start: 01-10-2025 End: 01-10-2025 Office outpatient visit 25 minutes Lashonda Beltrán MD Work Phone: [facility] Comment on above: On amiodarone therap y (Primary Dx); Atrial fibrillation, unspecified type (Multi) Start: 12-24-2024 Encounter for preprocedural laboratory examination Sia De La Rosa [facility] Start: 12-22-2024 End: 12-22-2024 Subsequent hospital visit by physician [facility] Comment on above: Atrial fibrillation/ flutter (Multi) Start: 12-22-2024 End: 12-22-2024 ambulatory LASHONDA Moore [facility] Start: 12-14-2024 End: 12-18-2024 ambulatory HELEN T [facility] Start: 12-14-2024 End: 12-14-2024 Subsequent hospital visit by physician Tomas Albarranv1 [facility] Comment on above: Arrived Start: 12-14-2024 End: 12-15-2024 ambulatory LASHONDA Moore [facility] Start: 12-14-2024 End: 12-15-2024 Subsequent hospital visit by physician Lashonda Beltrán MD Work Phone: [facility] Bldg A 4 Comment on above: Longstanding persist ent atrial fibrillation (Multi) (Primary Dx); Conduction disorder, unspecified; Status post placement of cardiac pacemaker Start: 12-13-2024 End: 12-13-2024 Patient encounter procedure Joy Baltazar [place] [facility] Work Phone: Start: 12-13-2024 End: 12-13-2024 ambulatory David Anderson Facility:[facility] Start: 12-06-2024 End: 12-06-[address] David Anderson MD Work Phone: -Laboratory Work Phone: Start: 12-06-2024 End: 12-06-2024 ambulatory Sia De La Rosa Facility:[facility] Start: 11-15-2024 End: 11-15-2024 Office outpatient visit 25 minutes Lashonda Beltrán MD Work Phone: [facility] Comment on above: Longstanding persist ent atrial fibrillation (Multi) (Primary Dx) Start: 11-15-2024 End: 11-15-2024 ambulatory LASHONDA Moore [facility] Start: 10-29-2024 Encounter for other preprocedural examination Sia De La Rosa [facility] Start: 10-13-2024 End: 10-16-2024 Evaluation and management of inpatient Lashonda Beltrán MD Work Phone: [facility] Comment on above: Unspecified atrial f ibrillation (Multi) (Primary Dx); Longstanding persistent atrial fibrillation (Multi); Heart block; Primary hypertension; Other acute pericarditis ([facility]) Start: 09-30-2024 End: 09-30-[address] David Anderson MD Work Phone: -Laboratory Work Phone: Start: 09-30-2024 End: 09-30-2024 ambulatory Sia De La Rosa Facility:[facility] Start: 09-14-2024 End: 09-14-2024 ambulatory David Anderson Facility:[facility] Start: 09-13-2024 End: 09-13-2024 Office outpatient new 45 minutes Lashonda Beltrán MD Work Phone: [facility] Comment on above: Atrial fibrillation, unspecified type (Multi) (Primary Dx); Preop testing Start: 09-13-2024 End: 09-13-2024 Patient encounter status Lashonda Beltrán MD Work Phone: [facility] Work Phone: Start: 09-13-2024 End: 09-13-2024 ambulatory LASHONDA Moore [facility] Start: 09-13-2024 End: 09-13-2024 Encounter for other preprocedural examination LASHONDA Moore [facility] Start: 08-16-2024 ambulatory David Anderson Faci lity:[facility] Start: 08-16-2024 End: 08-16-2024 ambulatory David Anderson Facility:[facility] Start: 08-11-2024 End: 08-11-2024 ambulatory David Anderson Facility:[facility] Start: 07-20-2024 End: 07-20-2024 ambulatory David Anderson Facility:[facility] Start: 07-13-2024 ambulatory Storm Ryan Facility:[facility] Start: 07-13-2024 End: 07-13-2024 ambulatory Storm Connor Facility:[facility] Start: 07-12-2024 ambulatory Stormmelinda Ryan Facility:[facility] Start: 06-29-2024 End: 06-29-2024 ambulatory David Anderson Facility:[facility] Start: 06-09-2024 End: 06-09-2024 ambulatory David Anderson Facility:[facility] Start: 02-09-[address] Broderick [facility] Work Phone: Start: 02-08-2024 Non-patient / Non-visit Dr. Cesar Anderson Work Phone: [facility] Start: 02-08-2024 End: 02-08-[address] David Anderson Work Phone: [facility] Work Phone: Start: 02-08-2024 End: 02-08-[address] David Anderson [facility] Work Phone: Start: 02-02-2024 End: 02-02-[address] David Anderson Work Phone: [facility] Work Phone: Start: 01-14-2024 End: 01-14-2024 ambulatory [facility] Work Phone: Start: 01-14-2024 End: 01-14-2024 Patient encounter procedure [facility] Start: 06-28-2023 End: 06-28-2023 Admission to same day surgery center Dr. Connor Anderson Work Phone: [facility]-Surgical Day [facility] Start: 06-28-2023 End: 06-28-[address] Connor Anderson Work Phone: [facility] Work Phone: Start: 05-05-2023 End: 05-05-[address] Connor Anderson Work Phone: [facility] Work Phone: Start: 05-05-2023 End: 05-05-[address] Connor Anderson Work Phone: [facility]-Outpatient Breast Imaging Work Phone: Start: 04-20-2023 End: 04-20-[address] Connor Anderson Work Phone: [facility] Work Phone: Start: 04-20-2023 End: 04-20-[address] Connor Anderson Work Phone: [facility] Start: 03-04-2023 End: 03-04-[address] Connor Anderson Work Phone: [facility] Start: 12-18-2022 End: 12-18-2022 ambulatory [facility] Work Phone: Start: 12-18-2022 End: 12-18-2022 [facility] Start: 09-18-2022 End: 09-18-2022 ambulatory [facility] Work Phone: Start: 09-18-2022 End: 09-18-2022 Patient encounter procedure [facility] Start: 08-05-2022 End: 08-05-2022 ambulatory [facility] Work Phone: Start: 08-05-2022 End: 08-05-2022 Patient encounter procedure [facility] Start: 04-30-2022 End: 04-30-2022 Patient encounter procedure [facility]-Outpatient Bone Densitometry Start: 04-21-2022 End: 04-21-2022 Patient encounter procedure [facility]-Laboratory, [facility] Procedures Date Procedure Procedure Detail Performing Clinician Start: 12-15-2024 CARDIAC DEVICE CHECK CHECK - INPATIENT Helen Ortiz [facility] Work Phone: Start: 12-15-2024 Radiologic exam chest 2 views Helen Ortiz [facility] Work Phone: Start: 12-15-2024 Basic metabolic pane l calcium total Helen Ortiz [facility] Work Phone: Start: 12-14-2024 Ecg routine ecg w/le ast 12 lds trcg only w/o i&r Helen Ortiz [facility] Work Phone: Start: 12-14-2024 Electrophysiology study Lashonda [...] Work Phone: Start: 10-14-2024 C-reactive protein Endy fidencio Morales MD Work Phone: Start: 10-14-2024 End: [...] or Population) (1 - 1-dose 75+ series) [facility] Start: 12-15-2025 Diabetes mellitus screening Diabetes Screening [facility] Start: 10-29-2025 End: 10-29-2025 Patient encounter procedure [facility] Start: 10-13-2025 Diabetes mellitus screening Diabetes Screening [facility] Start: 10-13-2025 Thyroid stimulating hormone measurement TSH Level [facility] Start: 07-09-2025 Influenza vaccination Influenz a Vaccine (Season Ended) [facility] Start: 04-30-2025 End: 04-30-2025 Patient encounter procedure [facility] Start: 01-23-2025 End: 01-23-2025 Patient encounter procedure 01/23/2025 8:00 AM EDT Appointment [facility] [address] [place] [id number] [facility] Start: 01-10-2025 End: 01-10-2025 Patient encounter procedure 01/10/2025 3:00 PM EST Office Visit [facility] [address] [place] [address] Lashonda Beltrán [place] [address] [place] [address] [facility] Start: 01-10-2025 End: 01-10-2026 Complete Pulmonary Function Test (Spirometry/DLCO/Lung Volumes) Complete Pulmonary Function Test (Spirometry/DLCO/Lung Volumes) PFT Routine On amiodarone therapy Expected: 01/10/2025 (Approximate), Expires: 01/10/2026 [facility] Service Area Work Phone: Comment on above: Expected: 01/10/2025 (Approximate), Expires: 01/10/2026 Start: 01-10-2025 End: 01-10-2026 Hepatic function 2000 panel - Serum or Plasma Hepatic Function Panel Lab Routine On amiodarone therapy Expected: 01/10/2025 (Approximate), Expires: 01/10/2026 [facility] Work Phone: Comment on above: Expected: 01/10/2025 (Approximate), Expires: 01/10/2026 Start: 01-10-2025 End: 01-10-2026 TSH with reflex to Free T4 if abnormal TSH with reflex to Free T4 if abnormal Lab Routine On amiodarone therapy Expected: 01/10/2025 (Approximate), Expires: 01/10/2026 [facility] Work Phone: Comment on above: Expected: 01/10/2025 (Approximate), Expires: 01/10/2026 Start: 11-28-2024 End: 11-28-2024 Patient encounter procedure 11/28/2024 10:40 AM EST Office Visit [facility] [address] [facility] [address] [place] [phone] Lashonda Beltrán [place] [address] [place] [address] [facility] Start: 11-21-2024 End: 11-21-2024 Patient encounter procedure 11/21/2024 2:00 PM EST Office Visit [facility] [address] [place] [address] Lashonda Beltrán [place] [address] [place] [address] [facility] Start: 09-27-2024 End: 03-13-2025 Basic metabolic 2000 panel - Serum or Plasma Basic Metabolic Panel Lab Routine Atrial fibrillation, unspecified type (Multi) Preop testing Expected: 09/27/2024, Expires: 03/13/2025 [facility] Service Area Work Phone: Comment on above: Expected: 09/27/2024 , Expires: 03/13/2025 Start: 09-27-2024 End: 03-13-2025 CBC panel - Blood by Automated count CBC Lab Routine Atrial fibrillation, unspecified type (Multi) Preop testing Expected: 09/27/2024, Expires: 03/13/2025 [facility] Work Phone: Comment on above: Expected: 09/27/2024 , Expires: 03/13/2025 Start: 07-09-2024 COVID-19 Vaccine () COVID-19 Vaccine () [facility] Start: 07-09-2024 Influenza vaccination Influenza Vacc ine (#1) [facility] Start: 06-28-2023 Ambulation without limitation [facility] Start: 06-28-2023 Elevation of head of bed [facility] Start: 06-28-2023 Medical regimen orde rs management [facility] Start: 06-28-2023 Patient discharge [facility] Start: 06-28-2023 Procedure discontinued [facility] Start: 06-28-2023 Taking patient vital signs [facility] Start: 06-28-2023 Vital signs measurements [facility] Start: 06-28-2023 Medication education [facility] Start: 01-25-2023 DTaP/Tdap/Td Vaccine s (3 - Td or Tdap) DTaP/Tdap/Td Vaccines (3 - Td or Tdap) [facility] Start: 04-30-2022 Dual energy X-ray absorptiometry Dexa Bone Density Study [facility] Work Phone: Start: 2020 Pneumococcal Vaccine : 65+ Years (1 of 1 - PCV) Pneumococcal Vaccine: 65+ Years (1 of 1 - PCV) [facility] Start: 2015 RSV High Risk: (Elde rly (60+) or Population) (1 - Risk 60-74 years 1-dose series) RSV High Risk: (Elderly (60+) or Population) (1 - Risk 60-74 years 1-dose series) [facility] Start: 2005 Pneumococcal vaccination Pneum ococcal Vaccine (1 of 1 - PCV) [facility] Start: 1995 Screening for malign ant neoplasm of breast Mammogram [facility] Start: 1973 Hepatitis C screening Hepatitis C Sc reening [facility] Start: 1955 Lipid panel Lipid Panel [facility] Start: 1955 Medicare Annual Well ness Visit Medicare Annual Wellness Visit (AWV) [facility] Start: 1955 Screening for malign ant neoplasm of colon [facility] Start: 1955 Screening for osteoporosis Bone Density Scan [facility] Start: 1955 Thyroid stimulating hormone measurement TSH Level [facility] Start: 1955 Yearly Adult Physical Yearly Adult P hysical [facility] Basic metabolic 2008 panel with ionized calcium - Serum or Plasma [facility] End: 01-10-2025 Cardiac device check - In Clinic [facility] Service Area Work Phone: Comment on above: Once for 1 Occurrenc es starting 01/10/2025 until 01/10/2025 End: 04-30-2025 Cardiac device check - In Clinic [facility] Service Area Work Phone: Comment on above: Once for 1 Occurrenc es starting 04/30/2025 until 04/30/2025 Cardiac device check - Inpatient Cardiac device check - Inpatient Implantable Cardiac Device Routine Status post placement of cardiac pacemaker 12/15/2024 9:40 AM EST [facility] Work Phone: End: 12-22-2024 Cardiac Device Check - Remote [facility] Area Work Phone: Comment on above: Once for 1 Occurrenc es starting 12/22/2024 until 12/22/2024 End: 10-22-2024 CBC panel - Blood by Automated count CBC Lab Routine Morning draw (Lab) for 1 Weeks starting 10/16/2024 until 10/22/2024, 1 completed [facility] Service Area Work Phone: Comment on above: Morning draw (Lab) f or 1 Weeks starting 10/16/2024 until 10/22/2024, 1 completed End: 12-14-2024 ECG 12 Lead [facility] Service Area Work Phone: Comment on above: Once for 1 Occurrenc es starting 12/14/2024 until 12/14/2024 ECG 12 lead (Clinic Performed) ECG 12 lead (Clinic Performed) ECG Routine Atrial fibrillation, unspecified type (Multi) 09/13/2024 1:00 PM [facility] Work Phone: ECG 12 lead (Clinic Performed) ECG 12 lead (Clinic Performed) ECG Routine Longstanding persistent atrial fibrillation (Multi) 11/15/2024 1:50 PM EST [facility] Work Phone: ECG 12 lead (Clinic Performed) ECG 12 lead (Clinic Performed) ECG Routine Atrial fibrillation, unspecified type (Multi) 01/10/2025 3:00 PM [facility] Work Phone: ECG 12 lead (Clinic Performed) ECG 12 lead (Clinic Performed) ECG Routine Persistent atrial fibrillation (Multi) 04/30/2025 2:20 PM EDT [facility] Work Phone: Electrocardiogram, 12-lead PRN ACS symptoms [facility] Work Phone: Comment on above: As needed until disc ontinued starting 10/13/2024 As needed until disc ontinued starting 10/13/2024, 4 completed Electrocardiogram, 12-lead PRN ACS symptoms Electrocardiogram, 12-lead PRN ACS symptoms ECG Routine 10/15/2024 1:05 PM [facility] Work Phone: Electrocardiogram, 12-lead PRN ACS symptoms Electrocardiogram, 12-lead PRN ACS symptoms ECG Routine 10/16/2024 11:00 AM [facility] Work Phone: Electrocardiogram, 12-lead PRN ACS symptoms Electrocardiogram, 12-lead PRN ACS symptoms ECG Routine 10/13/2024 6:25 PM [facility] Work Phone: End: 10-22-2024 Magnesium [Mass/volume] in Serum or Plasma Magnesium Lab Routine Morning draw (Lab) for 1 Weeks starting 10/16/2024 until 10/22/2024, 1 completed [facility] Work Phone: Comment on above: Morning draw (Lab) f or 1 Weeks starting 10/16/2024 until 10/22/2024, 1 completed Patient referral [facility] Work Phone: End: 10-22-2024 Renal function 2000 panel - Serum or Plasma Renal Function Panel Lab Routine Morning draw (Lab) for 1 Weeks starting 10/16/2024 until 10/22/2024, 1 completed [facility] Work Phone: Comment on above: Morning draw (Lab) f or 1 Weeks starting 10/16/2024 until 10/22/2024, 1 completed [facility] Payers Date Payer Category Payer Self-pay [id number] 2020 Medicare MEDICARE PART A AND B [id number] 2020 Medicare supplementa l policy (as second payer) [facility] MEDICARE SELECT SUPPLEMENT [id number] 5 2020 Medicare [id number] 2009 Unknown [id number] 1955 Unknown [id number] 2.16.840.1.576779.3.579 .2.1244 1955 Unknown [id number] 2.16.840.1.528123.3.579 .2.1244 1955 Unknown [id number] 2.16.840.1.301459.3.579 .2.1241 1955 Unknown [id number] 2..840.1.509725.3.579 .2.1241 1955 Unknown [id number] 2.840.1.367370.3.579 .2.1241 1955 Unknown [id number] 2.840.1.930726.3.579 .2.1241 1955 Unknown [id number] 2.16840.1.552593.3.579 .2.1241 1955 Unknown [id number] 2.16840.1.795481.3.579 .2.1241 1955 Unknown [id number] 2.840.1.157208.3.579 .2.1241 1955 Unknown [id number] 2.840.1.634806.3.579 .2.1242 Unknown [id number] 2.16840.1.036396.3.579 .2.462 Unknown [id number] 2.16840.1.184888.3.579 .2.462 Unknown [id number] 2.16840.1.822308.3.579 .2.462 Unknown [id number] 2.16840.1.987764.3.579 .2.462 Unknown [id number] 2.16840.1.964468.3.579 .2.462 Unknown [id number] 2.16.840.1.599737.3.579 .2.462 Unknown [id number] 2.16.840.1.376973.3.579 .2.462 Unknown [id number] 2.16.840.1.100328.3.579 .2.462 Unknown [id number] 2.16.840.1.591525.3.579 .2.462 Unknown [id number] 2.16.840.1.455324.3.579 .2.462 Unknown [id number] 2.16.840.1.544804.3.579 .2.462 Unknown [id number] 2.16.840.1.349505.3.579 .2.462 Unknown [id number] 2.16.840.1.948727.3.579 .2.462 Unknown [id number] 2.16.840.1.152955.3.579 .2.462 Unknown [id number] 2.16.840.1.387266.3.579 .2.462 Unknown [id number] 2.16.840.1.731836.3.579 .2.462 Unknown [id number] 2.16.840.1.912460.3.579 .2.462 Unknown [id number] 2.16.840.1.777240.3.579 .2.462 Unknown [id number] 2.16.840.1.556319.3.579 .2.462 Social History Date Type Detail [facility] Work Phone: Start: 1955 Sex Assigned At Female [facility] Start: 06-21-2023 End: 02-02-2024 Tobacco smoking status AZIS Unknown if ever smoked [facility] Start: 07-13-2024 End: 09-13-2024 Tobacco smoking status NHIS Never smoked tobacco [facility] Work Phone: Start: 09-13-2024 Tobacco use and exposure Smokeless tobacco non-user [facility] Work Phone: Start: 09-13-2024 End: 12-15-2024 History of Social function [facility] Start: 09-13-2024 End: 12-15-2024 Tobacco use panel [facility] Start: 1955 [facility] assigned at [facility] Work [facility]: Start: 09-03-2024 End: 01-10-2025 Exposure to SARS-CoV-2 (event) Not sure [facility] Has the [employer], [employer], oil, or water company threatened to shut off services in your home in past 12Mo No [facility] Frequency of Communication with Friends and Family Not on file [facility] Work Phone: Are you now , , , , never or living with a partner? [facility] Work Phone: How often to you hav e a drink containing alcohol? Monthly or less [facility] How many standard drinks containing alcohol do you have on a typical day? 1 or 2 [facility] Work Phone: How often do you hav e 6 or more drinks on 1 occasion? Never [facility] Work Phone: How hard is it for y ou to pay for the very basics like food, housing, medical care, and heating Not very hard [facility] Work Phone: (I/We) worried abdifatah er (my/our) food would run out before (I/we) got money to buy more. Never true [facility] Work Phone: Start: 12-14-2024 End: 04-30-2025 Alcoholic beverage intake Current drinker of alcohol (finding) [facility] Work Phone: Start: 12-14-2024 Alcohol Comment on vacation [facility] Work Phone: Start: 02-06-2025 Gender identity Identifies as female gender (finding) [facility] Work Phone: Start: 01-25-2025 End: 02-01-2025 Sex Female (finding) [facility] NEGATED: Highlighted row [facility] Medical Equipment Procedure Code Equipment Code Equipment Origin al Text Equipment Identifier Dates FESS (functional endoscopic sinus surgery) Plant polysaccharide haemostatic agent, bioabsorbable [id number] Start: 06-28-2023 Lead, Capsurefix Novus, 58 Cm - [id number] Start: 10-13-2024 Lead, Pacemaker, Ultipace 58cm - [id number] - [id number] Start: 12-14-2024 Lead, Pacemaker, Ultipace 52cm - [id number] - [id number] Start: 12-14-2024 Pacemaker, Gener ator, Dual Assurity Mri - [id number] - [id number] Start: 12-14-2024 Comment on above: Description: DDD 70- 120bpm Goals Date Patient Goal Desired Activity /State Functional Status Date Assessment Result Facility 12-15-2024 Are you deaf, or do you have serious difficulty hearing No 12/15/2024 11:29 AM Hannah Saba, DANIEL No [facility] Work Phone: 12-15-2024 Are you blind, or do you have serious difficulty seeing, even when wearing glasses No 12/15/2024 11:29 AM Hannah Saba, DANIEL No [facility] Work Phone: 12-15-2024 Do you have serious difficulty walking or climbing stairs No 12/15/2024 11:29 AM Hannah Saba, DANIEL No [facility] Work Phone: 12-15-2024 Do you have difficul ty dressing or bathing No 12/15/2024 11:29 AM Hannah Saba, DANIEL No [facility] Work Phone: 12-15-2024 Because of a physica l, mental, or emotional condition, do you have difficulty doing errands alone such as visiting a physician's office or shopping No 12/15/2024 11:29 AM Hannah Saba, DANIEL No [facility] Work Phone: Mental Status Date Assessment Result Facility 12-15-2024 Because of a physica l, mental, or emotional condition, do you have serious difficulty concentrating, remembering, or making decisions No 12/15/2024 11:29 AM Hannah Saba RN No [facility] Work Phone: 06-28-2023 Cognitive function Voice/Name [facility] Work Phone: Clinical Notes 06-28-2023 to 05-03-2025 Note Date & Type Note Facility 05-03-2025 Evaluation note Diagnosis Onset Date Resolution Hx of cardiac pacemaker acute J 2024 7:49am PAF (paroxysmal atrial fibrillation) acute May 03, 2025 7:49am Persistent atrial fibrillation acute May 03, 2025 7:49am Hypertension chronic May 03, 025 7:49am [facility] Work Phone: 1(681) 759-379606-23-2025 History of Present illness Narrative* Lashonda Beltrán MD - 04/30/2025 2:20 PM EDT Referred by Dr. Benavidez ref. provider found provider found for No chief complaint on file. Radha Thomas is a 69 y.o. year old female patient with h/o A Fib s/p RFA 6 months ago. Had evidence of sinus node dysfunction after ablation and PPM implant after the ablation. Presents for followup. PMHx/PSHx: As above FamHx: unremarkable Allergies: RX [...] PPM implant after the ablation. Presents for followup. Her current ECG shows A paced rhythm with narrow QRS, HR 70 bpm Device check today showed no evidence of A Fib , normal device function, parameters adjusted. Will stop the amiodarone and continue therest of the medications. Will follow up in [...] been made to prevent any error in marketing content coordinator, however minor errors may be present [1] No Known Allergies documented in this [facility] Work Phone: 1(110) 948-456203-05-2025 History of Present illness Narrative* Lashonda Beltrán MD - 01/10/2025 3:00 PM EST Referred by Dr. Benavidez ref. provider found [...] 2 times a day for 7 days, THEN1 tablet (200 mg) 2 times a day [...] been made to prevent any error in marketing content coordinator, however minor errors may be present documented in this [facility] Work Phone: 1(930) 186-627302-07-2025 Nurse Note* Jodi Nugent RN - 12/15/2024 11:52 AM EST Discharge instructions provided using teachback method. Patient's [...] removed. New scripts verified with home pharmacy. [facility]02-07-2025 Nurse Note* Jodi Nugent RN - 12/15/2024 11:52 AM EST Discharge instructions provided using teachback method. Patient's [...] verified with home pharmacy. documented in [facility] Work Phone: 1(260) 578-638702-07-2025 History of Present illness Narrative* Hannah Caba RN - 12/15/2024 11:30 AM EST 12/15/24 1129 Discharge Planning Living Arrangements Spouse/significant [...] to pay the mortgage or rent on time?N In the past 12 months, how many times have you moved where you were living? 0 At any time in the past 12 months, were you homeless or living in a mcfp (including now)? N Transportation Needs In the past 12 months, has lack of transportation kept you from medical appointments or from getting medications? no In the past 12 months, has lack of transportation kept you from meetings, work, or from getting things needed for daily living? No Patient Choice Provider Choice list and [facility] website (https://medicare.gov/care-compare#search) for post-acute Quality and Resource Measure Data were provided and reviewed with: Patient Patient / Family choosing to utilize agency / facility established prior to hospitalization No Stroke Family Assessment Stroke Family Assessment Needed No Intensity of Service Intensity of Service 0-30 min Met with patient at bedside and explained my role as wound care nurse. She lives in the house with her . She is independent with her care at home. She drives. Patient denies use of any ambulatory devices. No oxygen in use at home, no HD. Her PCP is Dr. David Anderson ) and she seen him one month ago. Pharmacy she uses is [facility] in [place]. She is able to afford medications and to get to her doctors appointments. Patient had Dual pacemaker implanted yesterday. Patient denies any needs going home. Her is driving her home. 1135 Patient is medically ready for discharge They are being discharged to: Home __Husband will pick patient up [facility] N/A Patient denies any other needs * Hannah Caba RN - 12/15/2024 11:29 AM EST 12/15/24 1129 ACS Disability Status Are you [...] condition, do you have serious difficulty doing errandsalone such as visiting the doctor? N documented in this [facility] Work Phone: [phone]) 532-906502-07-2025 Plan of care note* Care Plan - Edwige Valdes RN - 12/15/2024 8:04 AM EST Problem: Pain - Adult Goal: Verbalizes/displays adequate [...] stable for the duration of the shift [facility]02-07-2025 Miscellaneous Notes* Care Plan - Edwige Valdes RN - 12/15/2024 8:04 AM EST Problem: Pain - Adult Goal: Verbalizes/displays adequate [...] stable for the duration of the shift * Care Plan - Julius Saenz RN - 12/14/2024 7:47 PM EST The patient's goals for the [...] nutritional needs Outcome: Progressing documented in this encounterOhio[facility] Work Phone: [phone]) 914-135202-06-2025 Plan of care note* Care Plan - Julius Saenz RN - 12/14/2024 7:47 PM EST The patient's goals for the [...] appropriate for maintaining nutritional needs Outcome: Progressing [facility] Work Phone: [phone]) 483-365002-06-2025 NoteProcedures: Implant of dual chamber PPM (15169), cardioversion (22130) A left infraclavicular incision yielded access for [...] was tolerated well and there were no complications.[id number] Hospital Discharge instructions* Discharge Instructions* Helen Rodriguez Angel, WHEEL FITTER-MICRO PHOTOGRAPHER - 12/14/2024 1:13 PM EST Images from the original note were not included. Home-going Instructions After Device Implant Follow up with Dr. eBltrán as scheduled on 01/10/25 at 3 pm. [...] their own Call the Device Clinic at [phone] if you have any questions about your [...] be tender for a few weeks following surgery.Pain relievers such as Tylenol or Motrin are [...] your device ID card to the airport cyber security architect. The detector wand may be used below waist level and to inspect your shoes. Read the patient booklet for more information. You may call the device clinic or the patient services department of the device wellness program administrator with questions about specific electrical appliances and interference problems. It is your responsibility to make and keep appointments. After each visit on your way out, make an appointment for your next visit. Please follow the recommendations of your doctor for the frequency of appointments. Your Appointment: Date: Time: [facility] [address][phone] [id number] [place] [address] [facility] [phone] [place] [address] [facility] [address] [place] [address] [facility] [address] [place] [address] [facility] [address] [place] [address] [place] [facility] [address] [place] [address] [facility] [address] [place], [place] [address] [place] [facility] #[address] [place] [address] [place] [facility] Clinic [phone] [place] [address] [place] [facility] /[facility] [address] [place] [address] [facility] [address] [place], [place] [address] [facility] [address] [place] [address] [facility] [address] [place] [address] [facility] ([facility]) [address] [place] [address] [facility] [address] [facility] [place], [place] [address] Appointment [phone] Device Clinic: [phone] (this is Not an emergency number) Frequent [...] Other Sources of Information: Device Clinic Nurses: [phone] Patient Services Department of the wellness program administrator of your ICD The Internet holds an abundance of information. Some internet sites of interest: www.medtronic.Spyra www.Scrip-t.Spyra www.ITN.Spyra www.heartPrimavistaythm.Spyra www.Solvate.Spyra This info is a general resource. It is not meant to replace your health care provider s advice. Ask your doctor or health care team any questions. Always follow their instructions. * Attachments The following attachments cannot be sent through Care Everywhere. * Amiodarone, ADULT (Turkish) * Doxycycline, ADULT (Turkish) * Pacemaker Insertion Discharge Instructions (Turkish) * Tramadol, ADULT (Turkish) documented in this [facility] Work Phone: [phone]) [phone] History and physical note* JOSH Schmitt - 12/14/2024 11:21 AM EST History Of Present Illness Radha Tohmas is a 69 y.o. female with PMHx significant for HTN, hypothyroidism, Afib s/p RFA 12/6/24 on Eliquis presenting with atrial fibrillation and [...] Ablation A-Fib; Surgeon: Lashonda Beltrán MD; Location: [place] [address] Cardiac Solar Sales Energy Advisor; Service: Electrophysiology; Laterality: N/A; carto CARDIAC ELECTROPHYSIOLOGY PROCEDURE N/A 10/13/2024 Procedure: Temporary Pacemaker Insertion; Surgeon: Lashonda Beltrán MD; Location: [place] [address] Cardiac Solar Sales Energy Advisor; Service: Electrophysiology; Laterality: N/A; DILATION AND CURETTAGE [...] Recent Labs 10/16/24 0150 10/15/24 0333 10/14/24 0610/13/24 1934 WBC 7.2 8.2 7.3 10.9 HGB 10.6* 11.0* 10.8* 11.9* HCT 30.8* 32.3* 32.8* 35.7* PLT 104* 119* 115* 146* MCV 86 88 91 90 BMP/CMP: Recent Labs 10/16/24 0150 10/15/24 0340 10/14/24 0610/13/241933 NA 139 137 134* 139 K 3.9 [...] 135* Magnesium: Recent Labs 10/16/24 0150 10/15/24 0340 10/14/24 0600 10/13/24 1934 MG 2.12 1.68 1.77 1.87 Lipid Panel: No results for input(s): CHOL, HDL, CHHDL, LDL, VLDL, TRIG, NHDL in the last 94018 hours. Cardiac No lab exists for component: CK, CKMBP Hemoglobin A1C: No results for input(s): HGBA1C in the last 15076 hours. TSH/ Free T4: Recent Labs 10/13/24 193 TSH 5.02* Iron: No results for input(s): FERRITIN, TIBC, IRONSAT, BNP in the last 26944 hours. Coag: ABO: No results found for: [...] QT Interval 354 QTC Calculation(Bazett) 435 R Gary 26 T Gary 48 QRS Count 15 Q Onset 221 [...] for Afib. Discussed with Dr. Beltrán. He isalso aware that patient last took Eliquis this AM prior to arrival. -place under extended stay tonight 12/14/24 -CXR tomorrow AM to r/o pneumothorax and ensure lead placement intact -device nurse to see tomorrow morning -plan to dc home tomorrow 12/13/24 on prophylactic antibiotics MANUAL PLATE FILLER discussed with Dr. Beltrán regarding plan of care/ discharge plan I spent 30 minutes in the professional and overall care of this patient. JOSH Schmitt [facility] Work Phone: [phone] History and physical note* JOSH Schmitt - 12/14/2024 11:21 AM EST History Of Present Illness Radha Thomas is [...] Ablation A-Fib; Surgeon: Lashonda Beltrán MD; Location: [place] [address] Cardiac Solar Sales Energy Advisor; Service: Electrophysiology; Laterality: N/A; carto CARDIAC ELECTROPHYSIOLOGY PROCEDURE N/A 10/13/2024 Procedure: Temporary Pacemaker Insertion; Surgeon: Lashonda Beltrán MD; Location: [place] [address] Cardiac Solar Sales Energy Advisor; Service: Electrophysiology; Laterality: N/A; DILATION AND CURETTAGE [...] Glucose: POCT Urine : CBC: Recent Labs 10/16/2414910/15/2433210/14/2459910/13/241933 WBC 7.2 8.2 7.3 10.9 HGB 10.6* 11.0* 10.8* 11.9* HCT 30.8* 32.3* 32.8* 35.7* PLT 104* 119* 115* 146* MCV 86 88 91 90 BMP/CMP: Recent Labs 10/16/2414910/15/2433910/14/2459910/13/241933 NA 139 137 134* 139 K 3.9 [...] 111* 129* 130* 135* Magnesium: Recent Labs 10/16/2414910/15/2433910/14/2459910/13/241933 MG 2.12 1.68 1.77 1.87 Lipid Panel: No results for input(s): CHOL, HDL, CHHDL, LDL, VLDL, TRIG, NHDL in the last 89538 hours. Cardiac No lab exists for component: CK, CKMBP Hemoglobin A1C: No results for input(s): HGBA1C in the last 76373 hours. TSH/ Free T4: Recent Labs 10/13/24 1934 TSH 5.02* Iron: No results for input(s): FERRITIN, TIBC, IRONSAT, BNP in the last 42362 hours. Coag: ABO: No results found for: [...] QT Interval 354 QTC Calculation(Bazett) 435 R Gary 26 T Gary 48 QRS Count 15 Q Onset 221 [...] any previous visit from the past 1800 . Right Heart Cath: No results found for [...] for Afib. Discussed with Dr. Beltrán. He isalso aware that patient last took Eliquis this AM prior to arrival. -place under extended stay tonight 12/14/24 -CXR tomorrow AM to r/o pneumothorax and ensure lead placement intact -device nurse to see tomorrow morning -plan to dc home tomorrow 12/13/24 on prophylactic antibiotics MANUAL PLATE FILLER discussed with Dr. Beltrán regarding plan of care/ discharge plan I spent 30 minutes in the professional and overall care of this patient. JOSH Schmitt documented in this [facility] Work Phone: 1(702) 770-637702-05-2025 Evaluation note* Diagnosis Onset Date Resolution Status Admit Date Persistent atrial fibrillation acute December 13, 2024 8:29am Hypertension chronic December 8:29am [facility] Work Phone: 1(388) 911-969001-08-2025 History of Present illness Narrative* Lashonda Beltrán [...] been made to prevent any error in marketing content coordinator, however minor errors may be present documented in this [facility] Work Phone: 1([phone]) 416-383012-09-2024 History of Present illness Narrative* Keisha Madrid, PT - 10/16/2024 4:09 PM EST Physical Therapy Physical Therapy Evaluation & Treatment Patient Name: Radha Thomas Department: [facility] Room: A Today's Date: 10/16/2024 Time Calculation Start Time: [...] about screw-in TVP and mobility. Spoke with CICU medical team and OK with mobility as [...] Prior Function Per Pt/Caregiver Report Level of [place]: Independent with ADLs and functional transfers ADL Assistance: Independent Homemaking Assistance: Independent Ambulatory Assistance: Independent (Community ambulator, no AD, denies recent falls) Vocational: Retired (Used to work at [employer] Leisure: (+) drives, likes to be active [...] noted but no acute LOB Outcome Measures: [facility] Basic Mobility Turning from your back to [...] only Sitting: Supervision or set-up only Transfer Ccv-mg-Gtyzr: Supervision or set-up only Transfer Aiswhh-sj-Jbw: Supervision or set-up only Total Score: 25 [...] Education Comments No comments found. Signed by Keisha Madrid DPT * Petr Vigil MD - 10/16/2024 3:47 PM EST Subjective Data: Feels ok, in AF since 127 PM, no palpitations, pericarditis chest pain better. [...] result verified on 10/15/2024 0304 on specimen/case [id number] called with component [facility] [...] for AF complicated by sinus arrest (ventricular dgcnyb19k with retrograde conduction) s/p temp RV lead [...] [place] [phone] on weekdays 7AM - 6PM and weekends 7AM - 2PM, [place] [phone] at all other times. The EP device nurse can be reached at pager [phone] during regular business hours M-F. Peripheral IV 10/13/24 20 G Proximal;Right;Ventral Forearm [...] lab after undergoing elective Afib ablationcomplicated by [facility] s/p TVP. - Payer: Medicare, Joyce Supplemental . -Support System: Spouse, chidlren - Planned Disposition: Pending medical outcome and [...] you for this consultation. EP consult pager: [phone] (weekday 7AM-6PM, weekend 7AM-2PM, other times: [phone]) Peripheral IV 10/13/24 20 G Proximal;Right;Ventral Forearm (Active) Site Assessment Clean;Dry;Intact 10/14/24 040 Dressing Type Transparent 10/14/24 040 Line Status Flushed 10/14/24 040 Dressing Status Clean;Dry;Occlusive 10/14/24 040 Number of days: 1 Arterial Line 10/13/24 Left Radial (Active) Site Assessment Clean;Dry;Intact 10/14/24 040 Line Status Pulsatile blood flow 10/14/24 040 Art Line Waveform Appropriate 10/14/24 040 Art Line Interventions Zeroed and calibrated;Leveled;Connections checked and tightened;Flushed per protocol 10/14/24 040 Color/Movement/Sensation Capillary refill less than 3 sec;Distal pulses palpable 10/14/24 040 Dressing Type Antimicrobial patch;Transparent 10/14/24 040 Dressing Status Clean;Dry;Occlusive 10/14/24 040 Number of days: 1 Pacer Wires (Active) Pacer Wire Status Ventricular wires connected to pacer 10/14/24 0800 Site Assessment Clean;Dry;Intact 10/14/24 08 How Pacer Wires are Secured Ventricular wires secured to dressing 10/14/24 08 Dressing Status Clean;Dry;Intact 10/14/24 08 Number of days: 1 Code Status: Full Code I spent 30 minutes in the professional and overall care of this patient. Marion Carrillo MD Cosigned by Lashonda Beltrán MD at 10/16/2024 8:23 AM EST documented in this [facility] Work Phone: 1(285) 377-108912-09-2024 Plan of care note* Care Plan - Mary Kate Carrera RN [...] and maintenance of device (specify) Outcome: Progressing [facility]12-09-2024 Miscellaneous Notes* Care Plan - Mary Kate [...] Paula Moore RN Outcome: Progressing 10/15/2024354 by Puala Moore RN Outcome: Progressing Problem: Safety - [...] through the shift * Care Plan - Wse Camargo RN - 10/14/2024 3:05 AM EST [...] excess moisture Outcome: Progressing Flowsheets (Taken 10/14/2024 030) Prevent/manage excess moisture: Use wicking fabric (obtain [...] Goal: Promote/optimize nutrition Outcome: Progressing Flowsheets (Taken 10/14/2024 0304) Promote/optimize nutrition: Offer water/supplements/favorite foods Discuss with provider if NPO > 2 days Consume > 50% meals/supplements Goal: Promote skin healing Outcome: Progressing Flowsheets (Taken 10/14/2024 0304) Promote skin healing: Turn/reposition every 2 hours/use [...] Attending: * Lashonda Beltrán - Primary Resident/Fellow/Other Machine Farmworker: Surgeons and Role: * Adria Luciano MD - Fellow Indications: Pre-op Diagnosis * Unspecified atrial fibrillation (Multi) [I48.91] Post-procedure diagnosis: Post-op Diagnosis * Unspecified atrial fibrillation (Multi) [I48.91] Procedure(s): Ablation A-Fib 36464 - [place] COMPRE EP EVAL ABLTJ ATR FIB PULM [...] node dysfunction please Stents/Implants: Implants Pacemaker Lead, Renea Estes, 58 Cm - [id number] - Implanted Inventory item: LEAD, RENEA ESTES, 58 CM Model/Cat number: 5076-58 Serial number: [id number] Network Operations Lead: [employer] Lot number: [id number] Device identifier: [id number] Implant Date: 10/13/2024 GUDID Information Request status Successful Brand name: Renea Estes Version/Model: 5076-58 Company name: [employer] MRI safety info as of 10/13/24: Labeling does not contain MRI Safety Information Contains dry or latex rubber: No GMDN P.T. name: Endocardial/interventricular septal pacing lead As of 10/13/2024 Status: Implanted Plan: -Admit to CICU -Continue apixaban 5 twice daily, starting tonight -2 hours bedrest and vveode-cu-ktrls can be removed if no oozing -Rhythm checks throughout the weekend, potentially may need pacemaker if no return of rhythm -do not attempt any removal of the screw in lead without EP approval -start protonix 40 daily for 30 days -hold flecainide and other BB Estimated Blood Loss: 5 mL Anesthesia: General Anesthesia Staff: Anesthesiologist: Vincent Nix MD; Paola Del Angel MD PEST CONTROL SERVICE TECHNICIAN: Jarred Guerrero APRN-PEST CONTROL SERVICE TECHNICIAN Any Specimen(s) Removed: No specimens collected during this procedure. Disposition: CICU Electronically signed by: Adria Luciano MD, 10/13/2024 5:23 PM Cosigned by Lashonda Beltrán MD at 10/13/2024 11:16 PM EST * Hospital Course - Huy Sun PA-C - 10/12/2024 11:17 AM EST [facility] Work Phone: 1(297) 589-583012-09-2024 Plan of care note* Care Plan - [...] and maintenance of device (specify) Outcome: Progressing [facility]12-08-2024 Plan of care note* Care Plan [...] and maintenance of device (specify) Outcome: Progressing [facility]12-08-2024 Plan of care note* Care Plan - Paula Moore RN - 10/15/2024 3:55 AM EST Problem: Skin Goal: Decreased wound size/increased tissue granulation at next dressing change 10/15/2024 0355 by Paula Moore RN Outcome: Progressing 10/15/2024 0355 by Paula Moore RN Outcome: Progressing Goal: Participates in plan/prevention/treatment measures 10/15/2024 035 by Paula Moore RN Outcome: Progressing 10/15/2024 035 by Paula Moore RN Outcome: Progressing Goal: Prevent/manage excess moisture 10/15/2024 035 by Paula Moore RN Outcome: Progressing 10/15/2024 035 by Paula Moore RN Outcome: Progressing Goal: [...] will remain hemodynamically stable through the shift [facility]12-07-2024 Plan of care note* Care Plan [...] Goal: Free from fall injury Outcome: Progressing [facility] Work Phone: 1(958) 409-272812-06-2024 Note* Post-Procedure Note - Adria Luciano MD - 10/13/2024 1:29 PM EST Physician Transition of Care Summary Invasive Cardiovascular Lab Procedure Date: 10/13/2024 Attending: Evans Beltrán - Primary Resident/Fellow/Other Machine Farmworker: Surgeons and Role: * Adria Luciano MD - Fellow Indications: Pre-op Diagnosis * Unspecified atrial fibrillation (Multi) [I48.91] Post-procedure diagnosis: Post-op Diagnosis * Unspecified atrial fibrillation (Multi) [I48.91] Procedure(s): Ablation A-Fib 30364 - [place] COMPRE EP EVAL ABLTJ ATR FIB PULM [...] Pacemaker Lead, Capsurefix Novus, 58 Cm - [id number] - Implanted Inventory item: LEAD, CAPSUREFIX NOVUS, 58 CM Model/Cat number: 5076-58 Serial number: [id number] Network Operations Lead: [employer] Lot number: [id number] Device identifier: [id number] Implant Date: 10/13/2024 GUDID Information Request status [...] daily, starting tonight -2 hours bedrest and skktin-zx-ejhqz can be removed if no oozing -Rhythm checks throughout the weekend, potentially may need pacemaker if no return of rhythm -do not attempt any removal of the screw in lead without EP approval -start protonix 40 daily for 30 days -hold flecainide and other BB Estimated Blood Loss: 5 mL Anesthesia: General Anesthesia Staff: Anesthesiologist: Vincent Nix MD; Paola Del Angel MD PEST CONTROL SERVICE TECHNICIAN: Jarred Guerrero APRN-PEST CONTROL SERVICE TECHNICIAN Any Specimen(s) Removed: No specimens collected during this procedure. Disposition: CICU Electronically signed by: Adria Luciano MD, 10/13/2024 5:23 PM Cosigned by Lashonda Beltrán MD at 10/13/2024 11:16 PM EST [facility] Work Phone: 1(865) 888-526712-06-2024 Attending History and physical note* Adria Luciano [...] been made to prevent any error in marketing content coordinator, however minor errors may be present [facility] Work Phone: 1(162) 987-658112-06-2024 History and physical note* Adria Luciano MD [...] lisinopril 10 mg tablet 1 tablet, Daily (629) metoprolol tartrate (Lopressor) 25 mg tablet 1 tablet, Every 12 hours scheduled (30,0) triamcinolone (Kenalog) 0.1 % cream Apply topically. [...] been made to prevent any error in marketing content coordinator, however minor errors may be present documented in this [facility] Work Phone: 1(521) 601-694512-06-2024 Hospital Discharge instructions* Discharge Instructions* Rainer Tay MD - 10/13/2024 11:40 AM EST Ms. Thomas, Meir were admitted to the cardiac intensive care unit after an elective atrial fibrillation ablationthat was complicated by slow heart rates potentially in the setting of the ablation. A temporary pacing device was placed due to concerns that her heart rate would be too low. He was sent to the [facility] observation given this temporary pacing device. Over your ICU stay, you required minimal pacingfrom this device and your heart rhythm was normal and conducting appropriately. Unfortunately, we stayed in normal sinus rhythm for short period of time but reverted back into atrial fibrillation. You had an episode of chest pain overnight on 12/8 that is likely due to the inflammatory [...] without issue. Follow-up as scheduled with your aviation electrical technician, their office will call you and schedule you for your follow up appointment. Medications at Discharge: -Pantoprazole 40 mg twice daily (acid suppression medication) -Colchicine 0.6 mg twice daily for the next 21 days -Continue taking your home Metoprolol 25 mg twice daily -STOP TAKING YOUR HOME FLECAINIDE, PLEASE FOLLOW UP WITH YOUR ADVANCED PRACTICE NURSE TO DISCUSS RESTARTING MEDICATION. INSTRUCTIONS AFTER ABLATION [...] up with your primary care physician, primary computer systems engineer, and any other specialists you normally see. [...] of these symptoms become excessive, contact your aviation electrical technician or go to the emergency room. No [...] after ablation as scheduled [facility] Work Phone: 1(270) 864-500412-05-2024 Hospital Note* Hospital Course - Huy Sun PA-C - 10/12/2024 11:17 AM EST [facility] Work Phone: 1(175) 992-312511-06-2024 History of Present illness Narrative* Lashonda Beltrán [...] been made to prevent any error in marketing content coordinator, however minor errors may be present documented in this [facility] Work Phone: 1(156) 386-770009-04-2024 [facility] Medical Records Department [address] [place] [address] History Physical Exam 07/12/24 1527 MR#: [id number] Acct: [id number] Name: RADHA THOMAS Rep #: [id number] : 1955 69 From: Storm Ryan MD PCP: Dr. David Anderson MD Status:[place] [facility] [place] Location: [facility] History and Physical Date of Admission: 07/13/24 [...] a beta- clemente and anticoagulation with a IWA2TQ4-QMWa score of 3. She underwent DC cardioversion [...] fibrillation. Intake Vital Signs Intake Visit [facility] Required: No Accompanied by: Is patient in [...] and her Eliquis. She does have a CDM2MS0-URXo of 3. Stress test was noted to be normal. At her most recent office visit, she was started on flecainide 100 mg p.o. twice daily. She will proceed with cardioversion. If not successful, will consider EP evaluation to cons (more content not included)...[facility]08-21-2023 Discharge summary Author Tory Carvalho [facility] June 28, 2023 7:40am Note Date/Time June 28, 2023 7: 40am [facility] Medical Records Department [address] [place] [address] Discharge Summary 06/28/23 0739 MR#: [id number] Acct: [id number] Name: RADHA THOMAS Rep #:[id number] : [id number] 67 From: Troy Carvalho MD PCP: Dr. Connor Anderson MD Status: [facility] Location: [place] [address] Providers Primary Care Physician: Dr. Connor Anderson [...] can be placed): Home, Self Care 06/28/23 0749 <Electronically signed by Troy Carvalho MD> Cosigner Signature (if applicable): CC: Dr. Connor Anderson MD; Dr. Troy Carvalho MD~ Signed [facility] Work Phone: [phone]) 429-164608-21-2023 Procedure [facility] Evaluation noteNo assessment information [facility] Work Phone: Evaluation note* Diagnosis Onset Date Resolution Status Afib acute Hypertension chronic [facility] Work Phone: Evaluation note* Diagnosis Atrial fibrillation, unspecified type (Multi)- Primary Preop testing Unspecified pre-operative examination documented in this encounter [facility] Work Phone: Evaluation note* Diagnosis Heart block- [...] (Multi) Atrial fibrillation documented in this encounter [facility] Work Phone: Evaluation note* Diagnosis Longstanding persistent atrial fibrillation (Multi)- Primary documented in this encounter [facility] Work Phone: Evaluation note* Diagnosis Status post placement of cardiac pacemaker- Primary Longstanding persistent atrial fibrillation (Multi) Conduction disorder, unspecified Status post placement of cardiac pacemaker Persistent atrial fibrillation (Multi) Atrial fibrillation Longstanding persistent atrial fibrillation (Multi) Conduction disorder, unspecified documented in this encounter [facility] Work Phone: Evaluation note* Diagnosis Atrial fibrillation/flutter (Multi) documented in this encounter [facility] Work Phone: Evaluation note* Diagnosis On amiodarone therapy- Primary Atrial fibrillation, unspecified type (Multi) documented in this encounter [facility] Work Phone: Evaluation note* Diagnosis Atrial fibrillation, unspecified type (Multi) Presence of cardiac pacemaker Cardiac pacemaker in situ documented in this encounter [facility] Work Phone: Evaluation note* Diagnosis Persistent atrial fibrillation (Multi)- Primary Atrial fibrillation On amiodarone therapy documented in this encounter [facility] Work Phone: Evaluation note* Diagnosis Atrial fibrillation, unspecified type (Multi) Presence of cardiac pacemaker Cardiac pacemaker in situ documented in this encounter [facility] Work Phone: Evaluation note* Diagnosis Onset Date Resolution Status Admit Date Hx of cardiac pacemaker acute J 2024 7:49am PAF (paroxysmal atrial fibrillation) acute May 03, 2025 7:49am Persistent atrial fibrillation acute May 03, 2025 7:49am Hypertension chronic May 03 7:49am [facility] Work Phone: Reason for referral (narrative)No reason for referral information [facility] Work Phone: Reason for visit Narrative* Auth/Cert Specialty Diagnoses / Procedures Referred By Contac t Referred To Contact Diagnoses Unspecified atrial fibrillation (Multi) Procedures [place] COMPRE EP EVAL ABLTJ ATR FIB PULM VEIN ISOLATION Ablation A-[place] Lashonda Beltrán [place] [address] [place] [address] Phone: tel: fax: [facility] [place] [address] [address] [place] [facility] [address] [place] [address] Phone: tel: fax: Referral ID Status Reason Start Date Expiration Date Visits Re quested Visits Authorized [id number] 1 1 [facility] Work Phone: Rejntc for visit Narrative* Auth/Cert Specialty Diagnoses / Procedures Referred By Contac t Referred To Contact Diagnoses Longstanding persistent atrial fibrillation (Multi) Conduction disorder, unspecified Longstanding persistent atrial fibrillation (Multi) [I48.11] Conduction disorder, unspecified [I45.9] Procedures W[place] INS NEW/RPLCMT PRM PM W/TRANSV ELTRD ATRIAL&VENT [place] CARDIOVERSION ELECTIVE ARRHYTHMIA EXTERNAL Cardioversion PPM IMPLANT DUAL Lashonda Beltrán [place] [address] [place] [address] Phone: tel: fax: [address] [address] Phone: tel: fax: Referral ID Status Reason Start Date Expiration Date Visits Re quested Visits Authorized [id number] 1 1 [facility] Work Phone: reason for visit Narrative* Imaging (Routine) - Authorized Specialty Diagnoses / Procedures Referred By Contac t Referred To Contact Cardiology Diagnoses Atrial fibrillation/flutter (Multi) Procedures Cardiac Device Check - Remote Lashonda Beltrán [place] [address] [place] [id number] Phone: tel: fax: Referral ID Status Reason Start Date Expiration Date Visits Requested Visits Authorized [id number] Authorized Perform Procedure 12/22/2024 12/22/2025 7 7 [facility] Work Phone: reason for visit Narrative* Imaging (Routine) - Authorized Specialty Diagnoses / Procedures Referred By Contac t Referred To Contact Cardiology Diagnoses Atrial fibrillation, unspecified type (Multi) Presence of cardiac pacemaker Procedures Cardiac device check - In Clinic Lashonda Beltrán [place] [id number] [place], [place] [address] [place] [address] Phone: tel: fax: Referral ID Status Reason Start Date Expiration Date Visits Requested Visits Authorized [id number] Authorized Perform Procedure 01/10/2025 01/10/2026 1 1 [facility] Work Phone: reason for visit Narrative* Cardiovascular (Routine) - Authorized Specialty Diagnoses / Procedures Referred By Contac t Referred To Contact Diagnoses Persistent atrial fibrillation (Multi) Procedures ECG 12 lead (Clinic Performed) Lashonda [place]trán [place] [address] [place] [address] Phone: tel: fax: Referral ID Status Reason Start Date Expiration Date V isits Requested Visits Authorized [id number] Authorized 04/30/2025 04/30/2026 1 1 [facility] Work Phone: Reason for visit Narrative* Imaging (Routine) - Authorized Specialty Diagnoses / Procedures Referred By Contac t Referred To Contact Cardiology Diagnoses Atrial fibrillation, unspecified type (Multi) Presence of cardiac pacemaker Procedures Cardiac device check - [place]ashonda Beltrán [place] [address] [address] [place] [address] Phone: tel: fax: Referral ID Status Reason Start Date Expiration Date Visits Requested Visits Authorized [id number] Authorized Perform Procedure 12/13/2024 12/13/2025 1 1 [facility] Work Phone: Chief Complaint and Reason for Visit Chief Complaint Admit Date 3 M FU PER MMM May 03, 2025 7:49 am INT LAB ORDER May 19, 2025 9:22 am Reason for Visit Admit Date Hx of cardiac pacemaker May 03, 2025 7:49am PAF (paroxysmal atrial fibrillation) Marc e 2024 7:49am Persistent atrial fibrillation April 7:49am Hypertension May 03, 2025 7:49 am Chief Complaint SCREENING Chief Complaint xray ABN SINUS X-RAY, SINUS MASS Chief Complaint xray ABN SINUS X-RAY, SINUS MASS SCREENING Chief Complaint xray ABN SINUS X-RAY, SINUS MASS SCREENING ENDOSCOPIC INTRANASAL Chief Complaint NEW ONSET AFIB (JL SEN) R00.2, AFIB Blood Flow Screening - Sodium Methylate Operator Reason for Visit Afib Hypertension Chief Complaint Admit Date 4 M FU December 13, 2024 8 :29am 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 [facility] 2024 6:35am Reason for Visit Admit Date Persistent atrial fibrillation December 13, 2024 8:29am Hypertension December 13, 2024 8 :29am Chief Complaint Admit Date Other nursing home (current) drug therapy [facility] 2024 6:35am 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 [facility] 2024 7:00am 3 M FU PER MMM May 03, 2025 7:49 am Advance Directives No Advanced Directives Records Found Advance Directive Response Recorded Date/ Time Name of Medical Power of Dry Chain Offbearer June 21, 2023 9:47am Living Will Yes June 21 9:47am Power of Dry Chain Offbearer Yes June 21 023 9:47am Advance Directive Response Recorded Date/ Time Living Will Yes June 21 9:47am Power of Dry Chain Offbearer Yes June 21, 023 9:47am Date Activated Date Inactivated Comments [...] Connor Anderson MD Primary Care Provider Activ ARABELLA Chiang Attending Provider Active Team Status: Inactive Member [...] MD Attending Provider, Referring Pro vider Active Zinc Chloride Operator Relationship Specialty Start Date End Date Generic Provider, [place] [address] PCP - General Assistant To The Director 09/13/24 Zinc Chloride Operator Relationship Specialty Start Date End Date Generic Provider, [place] [address] PCP - General Assistant To The Director 09/13/24 Zinc Chloride Operator Relationship Specialty Start Date End Date Generic Provider, [place] [address] PCP - General Assistant To The Director 09/13/24 Zinc Chloride Operator Relationship Specialty Start Date End Date Generic Provider, [place] [address] PCP - General Assistant To The Director 09/13/24 12/14/24 David Anderson MD [address] [place] [address] PCP - General Family Medicine 12/15/24 Zinc Chloride Operator Relationship Specialty Start Date End Date Generic Provider, [place] [address] PCP - General Assistant To The Director 09/13/24 12/14/24 Zinc Chloride Operator Relationship Specialty Start Date End Date David Anderson MD [address] [place] [address] PCP - General Family Medicine 12/15/24 Zinc Chloride Operator Relationship Specialty Start Date End Date David Anderson MD [address] [place] [address] PCP - General Family Medicine 12/15/24 Zinc Chloride Operator Relationship Specialty Start Date End Date David Anderson MD [address] [place], [place] [address] PCP - General Family Medicine 12/15/24 Team Status: Active Member Role Status Dates Dr. David Anderson MD Primary Care Provider Acti ve Team Status: Inactive Member Role Status Dates Dr. David Anderson MD Primary Care Provider Acti ve Start: September 30, 2024 End: September 30, 2024 VIRGILIO GALLEGO Attending Provider Active Start: No vember 2023 End: September 30, 2024 VIRGILIO GALLEGO Referring Provider Active Start: No vember 2023 End: September 30, 2024 Team Status: Inactive Member Role Status Dates Dr. David Anderson MD Primary Care Provider Acti ve Start: December 06, 2024 End: December 06, 2024 TORIN GALLEGO Attending Provider Active Start: Hany car 2024 [...] 2025 LASHONDA, THAL Attending Provider Active Start: [facility] 2024 End: January 12, 2025 LASHONDA, THAL Referring Provider Active Start: [facility] 2024 End: January 12, 2025 Dr. Storm Ryan MD Other Provider Active Start : January 12, 2025 End: January 12, 2025 Team Status: Active Member Role Status Dates Dr. David Anderson MD Primary Care Provider Acti ve Start: January 22, 2025 LASHONDA, KUWAITI Attending Provider Active Start: [facility] 2024 LASHONDA, KUWAITI Referring Provider Active Start: [facility] 2024 Dr. Storm Ryan MD Other Provider Active Start : January 22, 2025 Team Status: Inactive Member Role Status Dates Dr. David Anderson MD Primary Care Provider Acti ve Start: January 22, 2025 End: January 22, 2025 LASHONDA, KUWAITI Attending Provider Active Start: [facility] 2024 End: January 22, 2025 LASHONDA, KUWAITI Referring Provider Active Start: [facility] 2024 End: January 22, 2025 Dr. Storm Ryan MD Other Provider Active Start : January 22, 2025 End: January 22, 2025 Zinc Chloride Operator Relationship Specialty Start Date End Date David Anderson MD [address] [place], [place] [id number] PCP - General Family Medicine 12/15/24 Zinc Chloride Operator Relationship Specialty Start Date End Date David Anderson MD [address] [facility] [address] [place], [place] [id number] PCP - General Family Medicine 12/15/24 Team Status: Active Member Role Status Dates Dr. David Anderson MD Primary Care Provider Acti ve Start: January 22, 2025 Dr. Leonid Marcano DO Attending Provider Active S tart: January 22, 2025 TORIN GALLEGO Referring Provider Active Start: [facility] 2024 Team Status: Inactive Member Role Status Dates Dr. David Anderson MD Primary Care Provider Acti ve Start: May 03, 2025 End: May 03, 2025 Dr. David Anderson MD Referring Provider Active Start: May 03, 2025 End: May 03, 2025 Joy BOONE PA Attending Provider Active Start: May 03, 2025 End: May 03, 2025 Team Status: Active Member Role/Relationship Status Dates Dr. David Anderson MD Primary Care Provider Acti ve Team Status: Inactive Member Role/Relationship Status Dates Dr. David Anderson MD Primary Care Provider Acti ve Start: May 03, 2025 End: May 03, 2025 Dr. David Anderson MD Referring Provider Active Start: May 03, 2025 End: May 03, 2025 Joy BOONE PA Attending Provider Active Start: May 03, 2025 End: May 03, 2025 Team Status: Inactive Member Role/Relationship Status Dates Dr. David Anderson MD Primary Care Provider Acti ve Start: May 19, 2025 End: May 19, 2025 Joy BOONE PA Attending Provider Active Start: May 19, 2025 End: May 19, 2025 Joy BOONE PA Referring Provider Active Start: May 19, 2025 End: May 19, 2025 Reason for Visit (unrecogniz ed section and content) Reason Comments Atrial Fibrillation Specialty Diagnoses / Procedures Referred By Contac t Referred To Contact Diagnoses Atrial fibrillation, unspecified type (Multi) Procedures ECG 12 lead (Clinic Performed) Lashonda [place]án [place] [address] [place] [address] Phone: tel: fax: Referral ID Status Reason Start Date Expiration Date V isits Requested Visits Authorized [id number] Authorized 09/13/2024 09/13/2025 1 1 Specialty Diagnoses / Procedures Referred By Contac t Referred To Contact Diagnoses Longstanding persistent atrial fibrillation (Multi) Procedures ECG 12 lead (Clinic Performed) Lashonda [place]án [place] [address] [place] [address] Phone: tel: fax: Referral ID Status Reason Start Date Expiration Date V isits Requested Visits Authorized [id number] Authorized 11/15/2024 11/15/2025 1 1 Reason Comments Atrial Fibrillation Specialty Diagnoses / Procedures Referred By Contac t Referred To Contact Diagnoses Atrial fibrillation, unspecified type (Multi) Procedures ECG 12 lead (Clinic Performed) Lashonda Beltrán [place] [address] [place] [address] Phone: tel: fax: Referral ID Status Reason Start Date Expiration Date V isits Requested Visits Authorized [id number] Authorized 01/10/2025 01/10/2026 1 1 Scheduled Active [...] 08 (Given - Provider: Mary Kate Carrera, DANIEL)2099 (Due) colchicine tablet 0.6 mg(Linked Group 1) 0.6 mg, oral, 2 times daily, First dose on Wed10/15/24 at 0900 0808 (Given - Provider: Nubia Benton RN)2028 (Given - Provider: Kristi Palmer RN) 08 (Given - Provider: Mary Kate Carrera RN)2099 (Due) colchicine tablet 1.2 mg (COMPLETED)(Linked Group 1) 1.2 mg, oral, Once, On 10/15/24 at 0200, For 1 dose 0144 (Given - Provider: Paula Moore RN) flecainide (Tambocor) tablet 100 mg 100 mg, oral, Every 12 hours scheduled (0630,1830), First dose on 10/15/24 at 1830 1802 (Given - Provider: Nubia Benton RN) 0630 (Given - Provider: Kristi Palmer RN)1830 (Due) levothyroxine (Synthroid, Levoxyl) tablet 50 mcg [...] - Comment: back)2015 (Medication Removed - Provider: Kristi Palmer, DANIEL) 0813 (Medication Applied - Provider: Mary Kate Carrera RN - Comment: back)2012 (Due: Medication Removed - Provider: Mary Kate Carrera RN) lisinopril tablet 10 mg (CANCELED) 10 mg, [...] dose 0817 (New Bag - Provider: Nubia Benton, DANIEL)1410 (Stopped - Provider: Nubia Benton RN) melatonin [...] Moore, RN) 0333 (Given - Provider: Paula Moore RN)1024 (Given - Provider: Nubia Benton, RN)1643 (Given - Provider: Nubia Benton, RN)2325 (Given - Provider: Kristi Palmer, DANIEL) 0809 (Given - Provider: Mary Kate Carrera RN) nitroglycerin (Nitrostat) SL tablet 0.4 mg 0.4 mg, sublingual, Every 5 min PRN, chest pain, Starting on 10/15/24 at 0748, May administer up to 3 doses per episode. polyethylene glycol (Glycolax, Miralax) packet 17 g 17 g, oral, Daily PRN, constipation, Starting on 10/15/24 at 1603 Linked Groups Order Group 1: colchicine tablet 1.2 mg (COMPLETED)Jump to med 1.2 mg, oral, Once, On 10/15/24 at 0200, For 1 dose Followed by colchicine tablet 0.6 mgJump to med 0.6 mg, oral, 2 times daily, First dose on 10/15/24 at 0900 Scheduled Medication Order 12/13/2024 12/14/2024 [...] Prophylaxis 1221 (New Bag - Provider: Meliza Walden, DANIEL)1251 (Due: Stopped - Provider: Meliza Walden RN) doxycycline (Vibra-Tabs) tablet 100 mg 100 mg, oral, Every 12 hours scheduled, First dose on Nohelia 12/14/24 at 2100, For 7 days, Recovery & On Unit, Suspected Indication (Select all that apply): Surgical Prophylaxis, Indications: Surgical Prophylaxis 2021 (Given - Provider: Julius Saenz RN) 826 (Given - Provider: Edwige Valdes RN)2099 (Due) [...] (Given - Provider: Edwige Valdes RN)2099 (Due) pantoprazole (ProtoNix) EC tablet 40 mg [...] RN) 0724 (See Alternative - Provider: Julius Saenz, DANIEL) acetaminophen (Tylenol) suppository 650 mg(Linked Group 1) [...] moderate (4-6), first line, Starting on Nohelia 2/05/02 at [...] As needed, Starting on Nohelia 12/14/24 at 1226, Intraprocedure 1226 (Given - Provider: Lashonda Beltrán MD) fentaNYL PF (Sublimaze) injection (CANCELED) As needed, Starting on Nohelia 12/14/24 at 1225, Intraprocedure 1225 (Given - Provider: Paddy Oneal RN)1239 (Given - Provider: Paddy Oneal, DANIEL) melatonin tablet 3 mg 3 mg, oral, Nightly PRN, sleep, Starting on Nohelia 12/14/24 at 1311, For 1 dose, Recovery & On Unit midazolam (Versed) injection (CANCELED) As needed, Starting on Nohelia 12/14/24 at 1225, Intraprocedure 1225 (Given - Provider: Paddy Oneal RN)1239 (Given - Provider: Paddy Oneal, DANIEL) ondansetron (Zofran) injection 4 mg(Linked Group 2) [...] section and content) DATE CREATED AUTHOR 12/30/2024 [facility] DATE CREATED AUTHOR AUTHOR'S ORGANIZ ATION 05/02/2025 [facility] [place] DATE CREATED AUTHOR AUTHOR'S ORGANIZ ATION 05/04/2025 [facility] DATE CREATED AUTHOR AUTHOR'S JEY ATION 05/27/2025 [facility] FOR RECORDS PERTAINING TO PATIENTS [...] BE BASED ON THE PRIMARY CLINICAL RECORDS. [facility] [employer] [facility]. provides no warranty or guarantee of the accuracy or completeness of information in this document.
[2025-06-22 08:47] LABS: Hematocrit 34.0 % (37-47); Hemoglobin 11.4 g/dL (12.0-15.0); Mean Corp Hgb Conc 33.5 g/dL (32-36); Mean Corpuscular Volume 92.1 fL (81-99); Mean Platelet Vol. 11.3 fl (6.2-12.0); Platelet Count 147 K/mm3 (150-450); RBC Distribution Width CV 12.9 % (11.6-14.6); RBC Distribution Width SD 43.2 fl (35.1-43.9); Red Blood Count 3.69 M/mm3 (4.2-5.4); White Blood Count 5.1 K/mm3 (4.4-11.0)
[2025-06-22 10:18] LABS: Anion Gap 12 (5-15); BUN 23 mg/dL (4-19); BUN/Creat Ratio 20.4 RATIO (10-20); Calcium,Total 9.3 mg/dL (7.6-11.0); Carbon Dioxide 23.1 mmol/L (21.0-32.0); Chloride 104 mmol/L (98-108); Cholesterol 201 mg/dL (<=200); Glucose 101 mg/dL (70-99); Low Density Lipoprotein Calc. 119 mg/dL; Magnesium 2.1 mg/dL (1.5-2.2); Potassium 4.3 mmol/L (3.3-5.1); Triglycerides 57 mg/dL; Very Low Density Lipoprotein 11 mg/dL (5-40); cholesterol:hdl ratio screen 2.84
== END | disposition home or self-care (01) ==
LOC: LAB 07:40
PROVIDERS: PCP Family Medicine; Referring Provider Family Medicine; Visit Provider Family Medicine
DX: I10 Essential (primary) hypertension (principal); I48.91 Unspecified atrial fibrillation; E03.9 Hypothyroidism, unspecified
CPT/HCPCS: 36415; 80048; 80061; 83735; 84439; 84443; 85027

== ENCOUNTER → 2025-07-10 | Outpatient (CLI) | payer MEDICARE, BC, SELFPAY ==
--- NOTE | 2025-07-10 15:08 | BI_ITS ---
EXAM: SCRN MAMM (CAD)W/JOAQUIN BILAT DATE: 07/10/2025 CLINICAL HISTORY: F, Age 70 y/o , SCREENING Mother with breast cancer. Remote left stereotactic in the left excisional breast biopsies. TECHNIQUE: Procedure Code: [id number] Modality: MG Procedure: SCRN MAMM (CAD)W/JOAQUIN BILAT COMPARISON: Prior exam(s) dated June 29, 2024.. FINDINGS: TISSUE DENSITY: The breasts are heterogeneously dense, which may obscure small masses. Bilateral Breast Mammographic Findings: No significant masses, calcifications or other abnormalities are identified. A tissue clip marker is once again seen in the medial inferior aspect of the left breast. A battery pack of a pacemaker is seen in the left axilla. No suspicious masses, areas of developing architectural distortion, or suspicious calcifications. There has been no significant interval change. BI/SCRN MAMM (CAD)W/JOAQUIN BILAT IMPRESSION: Stable bilateral screening mammogram. OVERALL FINAL ASSESSMENT BI-RADS 2: BENIGN RECOMMENDATION: Routine annual follow-up in 1 Year A letter with findings and recommendations will be mailed to the patient. Reading Location: [place] [address]
== END | disposition home or self-care (01) ==
LOC: OPBI 15:08
PROVIDERS: PCP Family Medicine; Referring Provider Family Medicine; Visit Provider Family Medicine
DX: Z12.31 Encounter for screening mammogram for malignant neoplasm of breast (principal)
CPT/HCPCS: 77063; 77067

== ENCOUNTER → 2025-07-26 | Outpatient (CLI) | payer MEDICARE, BC, SELFPAY ==
--- OUTSIDE RECORDS SUMMARY | 2025-07-26 19:39 | XMS RPT_ITS | CCD ---
Author Organization [facility] CliniSyms Care Team Providers Care Preparation Room Manager Name Role Phone Dr. oCnnor Anderson Primary Care Provider Dr. Storm Ryan Attending Provider Dr. David Anderson Primary Care Provider Dr. David Anderson Referring Provider [phone] Dr. Storm Ryan Attending Provider Generic Provider [...] Provider Dr. David Anderson MD Referring Provider Lashon Shah Attending Provider MAURITIAN LASHONDA Attending Provider MAURITIAN, LASHONDA Referring Provider Dr. David Anderson MD Primary Care Provider THAL LASHONDA Attending Provider [phone] THAL, LASHONDA Referring Provider [phone] Justin CARLSON, Dr. Maldonado Primary Care Provider Dr. Storm Ryan MD Other Provider Dr. Leonid Marcano DO Attending Provider MAURITIAN, LASHONDA Referring Provider Unavailable Dr. David Anderson MD Referring Provider [phone] Lashon Shah Attending Provider [phone] HELEN ORTIZ Referring Un[facility] Unavail able THAL, LASHONDA G Attending Unavailable THAL, LASHONDA G Referring Unavailable [facility] Primary Care Unavail able THAL, LASHONDA G Attending Unavailable GENERIC PROVIDER, NO ASSIGNED PCP Primary Care Unavailable THAL, LASHONDA G Referring Unavailable THAL, LASHONDA G Referring Unavailable [facility] Primary Care Unavail able THAL, LASHONDA G Referring Unavailable [facility] Primary Care Unavail able THAL, LASHONDA G Attending Unavailable [facility] Primary Care Unavail able THAL, LASHONDA G Attending Unavailable GENERIC PROVIDER, NO ASSIGNED PCP Primary Care Unavailable THAL, LASHONDA G Referring Unavailable THAL, LASHONDA G Admitting Unavailable THAL, LASHONDA G Attending Unavailable [facility] Primary Care Unavail able Justin CARLSON, Dr. Maldonado Primary Care Provider Lashon Shah Referring Provider [phone] Dr. David Anderson MD Attending Provider Lashon Shah Other Provider [phone] MAURO CHAVEZ Referring Unavailable David Anderson Primary Care Unavailable Storm Ryan Consulting Unavailable MAURO CHAVEZ Attending Unavailable [facility] Unavailable Lashon Shah Attending Unavail able Lashon Shah Referring Unavail able [facility] Unavailable Lashon Shah Referring Unavail able Lashon Shah Attending Unavail able [facility] Primary Care Unavailable Lashon Shah Referring Unavail able Storm Ryan Attending Unavailable MAURO CHAVEZ Referring Unavailable Leonid Marcano Attending Unavailable [facility] Primary Care Unavailable [facility] Primary Care Unavailable [facility] Referring Unavailable Lashon Shah Attending Unavail able [facility] Primary Care Unavailable [facility] [place] Referring Unavailable Lashon Shah Attending Unavail able [facility] Primary Care Unavailable [facility] [place] Referring Unavailable Lashon Shah Attending Unavail able [facility] Primary Care Unavailable [facility] [place] Referring Unavailable Lashon Shah Attending Unavail able [facility] Primary Care Unavailable [facility] [place] Referring Unavailable [facility] [place] Attending Unavailable Lashon Shah Consulting [facility]avail able [facility] [place] Primary Care Unavailable [facility] [place] Referring Unavailable [facility] [place] Primary Care Unavailable Lashon Shah Referring Unavail able Lashon Shah Attending Unavail able [facility] Primary Care Unavailable Lashon Shah Referring Unavail able Lashon Shah Attending Unavail able MAURO CHAVEZ Attending Unavailable [facility] Primary Care Unavailable MAURO CHAVEZ Referring Unavailable MAURO CHAVEZ Attending Unavailable [facility] Primary Care Unavailable Storm Ryan Consulting Unavailable MAURO CHAVEZ Attending Unavailable [facility] Primary Care Unavailable Storm Ryan Consulting Unavailable MAURO CHAVEZ Referring Unavailable Medications Current Medications Medication Drug Class(es) Dates Sig (Normalized) Sig (Original) apixaban 5 mg oral tablet (20 sources) Factor Xa Inhibitor Start: 02-02-2024 End: 03-27-2024 take 1 tablet by mouth twice daily Apixaban (Eliquis) 5 mg tablet Active 5 mg PO TWICE A DAY 180 3 March 27, 2024 10:05am calcium carbonate 1500 mg / cholecalciferol 200 unt oral capsule (10 sources) Vitamin D Start: 06-21-2023 Calcium Carbonate-Vitamin [...] 12/21/2024 Active estradiol 0.5 mg oral tablet (20 sources) Estrogen Start: 08-30-2024 estradiol (Est race) 0.5 mg tablet 1 tablet (0.5 mg). 1/2 tablet vaginal twice a week 08/30/2024 Active Start: 06-21-2023 Estradiol 0.5 mg tablet Active 0.25 mg PO Q4D June 21, 2023 12:00am Start: 06-21-2023 Estradiol Acti ve 0.25 MG PO Q4D June 21, 2023 12:00am levothyroxine sodium 0.05 mg oral tablet (20 sources) l-Thyroxine Start: 06-21-2023 take 1 tablet [...] 3 mg, oral, Daily, First dose on 10/13/24 at 2345 metoprolol tartrate 50 mg oral tablet (20 sources) beta-Adrenergic Clemente Start: 12-14-2024 take 50 mg by mouth twice daily 50 mg, oral, 2 times daily, First dose on [facility] 12/14/24 at 2100, [facility] Start: 12-13-2024 take 2 tablets by mo [facility] twice daily Metoprolol Tartrate 25 mg tablet Active 50 mg PO TWICE A DAY December 13, 2024 9:41am Start: 10-15-2024 take 1 tablet by ann th every six hours 12.5 mg, oral, Every [...] 25 mg PO TWICE A DAY 180 3 May 15, 2024 8:38am December 13, [...] DAILY February 02, 2024 12:00am Multivitamin tablet (7 sources) Start: 02-02-2024 Multivitamin tablet Active 1 [...] (Zofran) tablet 4 mg polyethylene glycol 3350 42043 mg powder for oral solution (1 source) Osmotic Laxative Start: 10-15-2024 take 17 g by mouth every twenty-four hours as needed 17 g, oral, Daily PRN, constipation, Starting on 10/15/24 at 1603 spironolactone 25 mg oral tablet (5 sources) Aldosterone Antagonist Start: 05-03-2025 take 1 tablet by mouth once daily Spironolactone 25 mg tablet Active 25 mg PO DAILY 07 10May 03, 2025 12:00am traMADol hydrochloride 50 mg [...] oral, 2 times daily, First dose on [facility] 12/14/24 at 2100, [facility] biotin 10 mg oral capsule (10 sources) Start: 06-21-2023 End: 04-25-2024 take 1 capsule by mouth once daily Biotin 10,000 mcg capsule Discontinued 41484 ug PO DAILY June 21, 2023 12:00am April 25, 2024 9:10am ceFAZolin 1000 mg injection (1 source) Cephalosporin Antibacterial Start: 12-14-2024 End: 12-14-2024 1 g, intravenous, at 100 mL/hr, Administer over 30 Minutes, Once, On [facility] 12/14/24 at 1100, For 1 dose, Preprocedure, Administer within 60 minutes prior to incision. premix bag, Dosing of this medication varies based on severity of illness. Does this patient have sepsis or concern for sepsis (probable or documented infection plus systemic manifestations of infection)? No, Suspected Indication (Select all that apply): Surgical Prophylaxis, Indications: Surgical Prophylaxis flecainide acetate 100 mg oral tablet (17 sources) Antiarrhythmic Start: 06-09-2024 End: 12-13-2024 take [...] pantoprazole 40 mg delayed release oral tablet (16 sources) Proton Pump Inhibitor Start: 12-13-2024 End: [...] Atrial fibrillation; Translations: [Unspecified atrial fibrillation] Onset: 09-14-2024 02-02-2024 Chronic Conduction disorders (20 sources) Heart block ; Translations: [Conduction disorder, unspecified] Onset: 10-13-2024 10-15-2024 Chronic Essential hypertension (20 sources) Hypertensive disorder; Translations: [Essential (primary) hypertension] Onset: 10-13-2024 01-13-2024 Chronic Nutritional deficiencies (9 sources) Serum iron low; Translations: [Iron deficiency] 01-13-2024 Episodic Other aftercare (2 sources) Drug therapy finding; Translations: [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] 01-10-2025 Episodic Other aftercare (3 sources) 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; Translations: [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] Onset: 01-10-2025 Episodic Other lower respiratory disease (7 sources) Dyspnea on exertion; Translations: [Other forms of dyspnea] 03-14-2024 Episodic Other screening for suspected conditions (not mental disorders or infectious disease) (1 source) Encounter for screening mammogram for malignant neoplasm of breast; Translations: [Encounter for screening mammogram for malignant neoplasm of breast] Onset: 07-19-2025 Episodic Kelly-; endo-; and myocarditis; cardiomyopathy (except that caused by tuberculosis or sexually transmitted disease) (3 sources) Acute pericarditis; Translations: [Other forms of acute pericarditis] Onset: 10-13-2024 10-16-2024 Episodic Residual codes; unclassified (6 sources) Obstructive sleep apnea syndrome; Translations: [Obstructive sleep apnea (adult) (pediatric)] 06-28-2025 Chronic Residual codes; unclassified (2 sources) Obstructive sleep apnea (adult) (pediatric); Translations: [Obstructive sleep apnea (adult) (pediatric)] Onset: 06-28-2025 Chronic Residual codes; unclassified (7 sources) History of cardioversion; Translations: [Personal history of other medical treatment] 12-13-2024 Episodic Thyroid disorders (10 sources) Acquired hypothyroidism; Translations: [Hypothyroidism, unspecified] Onset: 10-13-2024 10-13-2024 Chronic Thyroid disorders (9 sources) Disorder of thyroid gland; Translations: [Disorder [...] Da te Episodic/Chronic Cardiac dysrhythmias (20 sources) Palpitations; Translations: [Palpitations] Onset: 09-07-2024 01-13-2024 Episodic Unclassified (10 sources) Onset: 09-13-2024 Resolved: 04-30-2025 09-13-2024 Results Test Name Value Interpretation Reference Range Facility Breast imaging reportOrdered By: Matt Cao on 07-11-2025 Study report [facility] Imaging Services [address] [place] [address] SCRN MAMM (CAD)W/JOAQUIN BILAT MR#: [id number] Acct: [id number] Name: RADHA THOMAS Rep #: [id number] : 1955 F 70 From: Patricio Cao MD PCP: Dr. David Anderson MD Status: [facility] Study:SCRN MAMM (CAD)W/JOAQUIN BILAT Date of Exa m: 07/10/25 Exam# [id number] Ordering Dr: Manish Anderson MD EXAM: SCRN MAMM (CAD)W/JOAQUIN BILAT DATE: 07/10/2025 CLINICAL HISTORY: F, Age 70 y/o , SCREENING Mother with breast cancer. Remote left stereotactic in the left excisional breast biopsies. TECHNIQUE: Procedure Code: BISMWCADBTOM Modality: MG Procedure: SCRN MAMM (CAD)W/JOAQUIN BILAT COMPARISON: Prior exam(s) dated June 29, 2024.. FINDINGS: TISSUE DENSITY: The breasts are heterogeneously dense, which may obscure small masses. Bilateral Breast Mammographic Findings: No significant masses, calcifications or other abnormalities are identified. A tissue clip marker is once again seen in the medial inferior aspect of the left breast. A battery pack of a pacemaker is seen in the left axilla. No suspicious masses, areas of developing architectural distortion, or suspicious calcifications. There has been no significant interval change. BI/SCRN MAMM (CAD)W/JOAQUIN BILAT IMPRESSION: Stable bilateral screening mammogram. OVERALL FINAL ASSESSMENT BI-RADS 2: BENIGN RECOMMENDATION: Routine annual follow-up in 1 Year A letter with findings and recommendations will be mailed to the patient. Reading Location: [facility] CC: Dr. David Anderson MD ~ Chemistry Intern: Signed [facility] SCRN MAMM (CAD)W/JOAQUIN BILATo n 07-10-2025 SCRN MAMM (CAD)W/JOAQUIN BILAT [facility] Imaging Services [address] [place] [address] SCRN MAMM (CAD)W/JOAQUIN BILAT MR#: [id number] Acct: [id number] Name: RADHA THOMAS Rep #: [id number] : 1955 F 70 From: Matt bonilla MD PCP: Dr. David Anderson MD Status: [facility] Study: SCRN MAMM (CAD)W/JOAQUIN BILAT Date of Exam: 01/02 Exam# [id number] Ordering Dr: David Anderson EXAM: SCRN MAMM (CAD)W/JOAQUIN BILAT DATE: 07/10/2025 CLINICAL HISTORY: F, Age 70 y/o , SCREENING Mother with breast cancer. Remote left stereotactic in the left excisional breast biopsies. TECHNIQUE: Procedure Code: BISMWCADBTOM Modality: MG Procedure: SCRN MAMM (CAD)W/JOAQUIN BILAT COMPARISON: Prior exam(s) dated June 29, 2024.. FINDINGS: TISSUE DENSITY: The breasts are heterogeneously dense, which may obscure small masses. Bilateral Breast Mammographic Findings: No significant masses, calcifications or other abnormalities are identified. A tissue clip marker is once again seen in the medial inferior aspect of the left breast. A battery pack of a pacemaker is seen in the left axilla. No suspicious masses, areas of developing architectural distortion, or suspicious calcifications. There has been no significant interval change. BI/SCRN MAMM (CAD)W/JOAQUIN BILAT IMPRESSION: Stable bilateral screening mammogram. OVERALL FINAL ASSESSMENT BI-RADS 2: BENIGN RECOMMENDATION: Routine annual follow-up in 1 Year A letter with findings and recommendations will be mailed to the patient. Reading Location: [facility] CC: Dr. David Anderson MD Chemistry Intern: Signed Normal [facility] Cardiology Visit Reporton Cardiology Visit Report [facility] [address] [place] [address] OFFICE VISIT Date of Service: 06/28/25 MR#: [id number] Acct: [id number] Name: RADHA THOMAS Rep #: [id number] : 1955 Provider: PAOLO Ruiz Age/Sex: 69/F Location: [facility] Status: Signed HPI HPI History of Present [...] on a beta-clemente and anticoagulation with a [id number] score of 3. Patient did undergo a [...] beats. Patient was seen by EP at [facility]. Patient did undergo an ablation in October at This was complicated by sinus node dysfunction requiring a temporary pacemaker for a few days. Unfortunately she did not maintain sinus rhythm. Pt did undergo a PPM in 12/2024 with a cardioversion. She notes that she has not had any Afib. Will obtain recent PPM interrogations. She still does have fatigue. She does find that it is difficult to fall back to sleep when she wakes up. However last night she did sleep 7 hours. She does snore. In the past she had a sleep study and she had surgery for this. STOP-BANG Assessment: 1. Do you snore? y 2. Are you frequently tired during the day? y 3. Have you been observed gasping or choking while asleep? y 4. Do you have high blood pressure? y 5. BMI - greater than 35kg/m2? n 6. Age - over 50 years old? y 7. Neck Circumference - greater than 37 cm for females or 40 cm for males? n 8. Gender - male? y Total STOP-BANG score =5 which indicates positive risk for obstructive sleep apnea (yes to 3 or more questions = high risk of sleep apnea). Intake Vital Signs 05/03/25 08:13 06/28/25 07:26 Height 5 ft 5 in 5 ft 5 in Weight: 187 lb 185 lb BMI 31.1 30.7 BP 149/86 H 123/78 H Blood Pressure Location Lt brachial Lt brachial Position Sitting Sitting Respiration 16 18 Pulse 69 68 Pulse Source Monitor Monitor Pulse Oximetry (%) 99 Intake Visit Reasons: 2 M Dictionary Editor Required: No Is patient in pain?: No Allergies No Known Allergies Allergy (Verified 06/28/25 07:49) Medications ???Medication ???Instructions ???Recorded ???Confirmed ???Type calcium 600 mg (as 2 cap PO DAILY 06/21/23 06/28/25 H istory carbonate)-vitamin D3 5 mcg (200 unit) capsule (Calcium 600 + D(3)) estradiol 0.5 mg tablet 0.25 mg PO Q4D 06/21/23 06/28/25 H istory levothyroxine 50 mcg tablet 50 mcg PO DAILY 06/21/23 06/28/25 History multivitamin 1 tab PO DAILY 02/02/24 06/28/25 H istory apixaban 5 mg tablet (Eliquis) 5 mg PO BID #180 tabs 03/27/24 Rx lisinopril 10 mg tablet 20 mg PO DAILY 12/13/24 06/28/25 H istory metoprolol tartrate 25 mg tablet 50 mg PO BID 12/13/24 06/28/25 His tory spironolactone 25 mg tablet 25 mg PO DAILY #30 tabs 05/03/25 0 06/28/25 Rx Ejection fraction %: 60 Have you fallen in the past year?: No PFSH Medical History (Updated 06/28/25 @ 08:21 by Lashon BOONE, PA) Hx of cardiac pacemaker PAF [...] Const: Positive for fatigue; Negative for weakness, headache(s) or frequent falls Eyes Eyes: Negative for blurry vision ENT ENT: Negative for headache(s), dizziness or Nosebleed/epistaxis Cardio Chest Pain: No Palpitations: No Edema: None (more content not included)... Normal [facility] T4 Free Directon 06-27-2025 T4 FREE DIRECT 1.10 ng/dL Normal 0.76-1.46 [facility] Comment on above: Order Comment: LACIE Brunner ADD T4F TO BLOOD DRAWN 06/22/25PER Order Date: 01/01/25Order Info: [id number] - BMPOrder Info: [id number] - LIPIDOrder Info: [id number] - MGOrder Info: 3016-3 - TSH Performed By: #### L 506.0400 ####[facility] [address] [place], [place], [id number] Anion gap in Serum or Plasma Ordered By: David Anderson on 06-22-2025 Anion gap [Moles/Vol] 12 mmol/L 03-22 [facility] BUN/creatinine ratioOrdered By: David Anderson on 06-22-2025 Urea nitrogen/Creatinine [Mass ratio] 20.4 mg/mg High 08-27 [facility] Basic Metabolic Profile (BMP )on 06-22-2025 BUN/CRE 20.4 RATIO High 08-27 [facility] Comment on above: Order Comment: Order Date: 01/01/25 Order Info: 666-11 - BMP Order Info: - LIPID Order Info: [id number] - MG Order Info: 3016-3 - TSH Performed By: #### L 501.5200, L501.9520, L500.2500, L500.4100, L100.0500 #### [facility] [address] [place], [address] Calcium [Mass/Vol] 9.3 mg/dL Normal 7.6-11.0 [facility] Comment on above: Order Comment: Order Date: 01/01/25 Order Info: 666-11 - BMP Order Info: - LIPID Order Info: [id number] - MG Order Info: 3015-3 - TSH Performed By: #### L 501.5200, L501.9520, L500.2500, L500.4100, L100.0500 #### [facility] [address] [place], [address] Chloride [Moles/Vol] 104 mmol/L Normal 98-108 [facility] Comment on above: Order Comment: Order Date: 01/01/25 Order Info: 666-11 - BMP Order Info: - LIPID Order Info: [id number] - MG Order Info: 6-3 - TSH Performed By: #### L 501.5200, L501.9520, L500.2500, L500.4100, L100.0500 #### [facility] [address] [place], [address] CO2 [Moles/Vol] 23.1 mmol/L Normal 21.0-32.0 [facility] Comment on above: Order Comment: Order Date: 01/01/25 Order Info: 666-11 - BMP Order Info: [id number] - LIPID Order Info: [id number] - MG Order Info: 3016-3 - TSH Performed By: #### L 501.5200, L501.9520, L500.2500, L500.4100, L100.0500 #### [facility] [address] [place], [address] Creatinine [Mass/Vol] 1.11 mg/dL Normal 0.70-1.20 [facility] Comment on above: Order Comment: Order Date: 01/01/25 Order Info: 0667- - BMP Order Info: [id number] - LIPID Order Info: [id number] - MG Order Info: 3015-3 - TSH Performed By: #### L 501.5200, L501.9520, L500.2500, L500.4100, L100.0500 #### [facility] [address] [place], [address] GAP 12 Normal 5-15 [facility] Comment on above: Order Comment: Order Date: 01/01/25 Order Info: 666-11 - BMP Order Info: [id number] - LIPID Order Info: [id number] - MG Order Info: 3 - TSH Performed By: #### L 501.5200, L501.9520, L500.2500, L500.4100, L100.0500 #### [facility] [address] [place], [address] GFR/1.73 sq M.predicted among non-blacks MDRD (S/P/Bld) [Vol rate/Area] 54 mL/min/{1.73_m2} Low >60 [facility] Comment on above: Order Comment: Order Date: 01/01/25 Order Info: 06 - BMP Order Info: [id number] - LIPID Order Info: [id number] - MG Order Info: 301-3 - TSH Result Comment: mL/m in/1.73m2 CKD-EPI Creatinine Equation (2020) Performed By: #### L 501.5200, L501.9520, L500.2500, L500.4100, L100.0500 #### [facility] [address] [place], [address] Glucose [Mass/Vol] 101 mg/dL High 70-99 [facility] Comment on above: Order Comment: Order Date: 01/01/25 Order Info: 666-11 - BMP Order Info: [id number] - LIPID Order Info: [id number] - MG Order Info: 3016-3 - TSH Performed By: #### L 501.5200, L501.9520, L500.2500, L500.4100, L100.0500 #### [facility] [address] [place], [address] Potassium [Moles/Vol] 4.3 mmol/L Normal 3.3-5.1 [facility] Comment on above: Order Comment: Order Date: 01/01/25 Order Info: 666-11 - BMP Order Info: - LIPID Order Info: [id number] - MG Order Info: 3015-3 - TSH Performed By: #### L 501.5200, L501.9520, L500.2500, L500.4100, L100.0500 #### [facility] [address] [place], [address] Sodium [Moles/Vol] 139 mmol/L Normal 133-145 [facility] Comment on above: Order Comment: Order Date: 01/01/25 Order Info: 666-11 - BMP Order Info: - LIPID Order Info: [id number] - MG Order Info: 6-3 - TSH Performed By: #### L 501.5200, L501.9520, L500.2500, L500.4100, L100.0500 #### [facility] [address] [place], [address] Urea nitrogen [Mass/Vol] 23 mg/dL High 4-19 [facility] Comment on above: Order Comment: Order Date: 01/01/25 Order Info: 666-11 - BMP Order Info: [id number] - LIPID Order Info: [id number] - MG Order Info: 3016-3 - TSH Performed By: #### L 501.5200, L501.9520, L500.2500, L500.4100, L100.0500 #### [facility] [address] [place], [address] CBC-Complete Blood Cnt No Di ffon 06-22-2025 Erythrocyte distribution width (RBC) [Ratio] 12.9 % Normal 11.6-14.6 [facility] Comment on above: Order Comment: Order Date: 01/01/25 Order Info: [id number] - CBC Performed By: #### L 501.5200, L501.9520, L500.2500, L500.4100, L100.0500 #### [facility] [address] [place], [address] Hematocrit (Bld) [Volume fraction] 34.0 % Low 37-47 [facility] Comment on above: Order Comment: Order Date: 01/01/25 Order Info: [id number] - CBC Performed By: #### L 501.5200, L501.9520, L500.2500, L500.4100, L100.0500 #### [facility] [address] [place], [address] Hemoglobin (Bld) [Mass/Vol] 11.4 g/dL Low 12.0-15.0 [facility] Comment on above: Order Comment: Order Date: 01/01/25 Order Info: [id number] - CBC Performed By: #### L 501.5200, L501.9520, L500.2500, L500.4100, L100.0500 #### [facility] [address] [place], [address] MCH (RBC) [Entitic mass] 30.9 pg Normal 27.0-32.0 [facility] Comment on above: Order Comment: Order Date: 01/01/25 Order Info: [id number] - CBC Performed By: #### L 501.5200, L501.9520, L500.2500, L500.4100, L100.0500 #### [facility] [address] [place], [address] MCHC (RBC) [Mass/Vol] 33.5 g/dL Normal 32-36 [facility] Comment on above: Order Comment: Order Date: 01/01/25 Order Info: [id number] - CBC Performed By: #### L 501.5200, L501.9520, L500.2500, L500.4100, L100.0500 #### [facility] [address] [place], [address] MCV (RBC) [Entitic vol] 92.1 fL Normal 81-99 [facility] Comment on above: Order Comment: Order Date: 01/01/25 Order Info: [id number] - CBC Performed By: #### L 501.5200, L501.9520, L500.2500, L500.4100, L100.0500 #### [facility] [address] [place], [address] Platelet mean volume (Bld) [Entitic vol] 11.3 fL Normal 6.2-12.0 [facility] Comment on above: Order Comment: Order Date: 01/01/25 Order Info: [id number] - CBC Performed By: #### L 501.5200, L501.9520, L500.2500, L500.4100, L100.0500 #### [facility] [address] [place], [address] Platelets (Bld) [#/Vol] 147 10*3/uL Low 150-450 [facility] Comment on above: Order Comment: Order Date: 01/01/25 Order Info: [id number] - CBC Performed By: #### L 501.5200, L501.9520, L500.2500, L500.4100, L100.0500 #### [facility] [address] [place], [address] RBC (Bld) [#/Vol] 3.69 10*6/uL Low 4.2-5.4 [place] [facility] Comment on above: Order Comment: Order Date: 01/01/25 Order Info: [id number] - CBC Performed By: #### L 501.5200, L501.9520, L500.2500, L500.4100, L100.0500 #### [facility] [address] [place], [place], [address] RDW SD 43.2 fl Normal 35.1-43.9 [facility] Comment on above: Order Comment: Order Date: 01/01/25 Order Info: [id number] - CBC Performed By: #### L 501.5200, L501.9520, L500.2500, L500.4100, L100.0500 #### [facility] [address] [place], [address] WBC (Bld) [#/Vol] 5.1 10*3/uL Normal 4.4-11.0 [facility] Comment on above: Order Comment: Order Date: 01/01/25 Order Info: [id number] - CBC Performed By: #### L 501.5200, L501.9520, L500.2500, L500.4100, L100.0500 #### [facility] [address] [place], [place], [address] Calculated very low density lipoprotein (VLDL) cholesterol measurementOrdered By: David Anderson on 06-22-2025 Calculated very low density lipoprotein (VLDL) cholesterol measurement 11 mg/dL 5-40 [facility] Carbon dioxide, total [Moles /volume] in Central venous bloodOrdered By: David Anderson on 06-22-2025 CO2 [Moles/Vol] 23.1 mmol/L 21.0-32.0 [facility] Chloride assayOrdered By: Cesar Anderson on 06-22-2025 Chloride [Moles/Vol] 104 mmol/L 98-108 [facility] Erythrocyte distribution wid th ratioOrdered By: David Anderson on 06-22-2025 Erythrocyte distribution width (RBC) [Ratio] 12.9 % 11.6-14.6 [facility] Erythrocyte distribution wid th standard deviationOrdered By: David Anderson on 06-22-2025 Erythrocyte distribution width (RBC) [Ratio] 43.2 fl 35.1-43.9 [facility] Glomerular filtration rate ( GFR) estimation/1.73 sq m using serum, plasma, or whole bOrdered By: David Anderson on 06-22-2025 GFR/1.73 sq M.predicted among non-blacks MDRD (S/P/Bld) [Vol rate/Area] 54 mL/min/{1.73_m2} Low >60 [facility] Comment on above: mL/min/1.73m2 CKD-EP I Creatinine Equation (2020) Hematocrit Auto (Bld) [Volum e fraction]Ordered By: David Anderson on 06-22-2025 Hematocrit (Bld) [Volume fraction] 34.0 % Low 37-47 [facility] Hemoglobin measurementOrdere d By: David Anderson on 06-22-2025 Hemoglobin (Bld) [Mass/Vol] 11.4 g/dL Low 12.0-15.0 [facility] LDL calc ser/plasOrdered By: David Anderson on 06-22-2025 Cholesterol in LDL [Mass/Vol] 119 mg/dL [facility] Comment on above: Ipwhibtylm=091-174 m g/dL & Higher Vytz=579 mg/dL or greaterFriedwald Equation for LDL-C Lipid Profileon 06-22-2025 CHOL:HDL 2.84 Normal [facility] Comment on above: Order Comment: Order Date: 01/01/25 Order Info: [id number] - BMP Order Info: [id number] - LIPID Order Info: [id number] - MG Order Info: 3016-3 - TSH Performed By: #### L 501.5200, L501.9520, L500.2500, L500.4100, L100.0500 #### [facility] [address] [place], [address] Cholesterol [Mass/Vol] 201 mg/dL Normal <=200 [facility] Comment on above: Order Comment: Order Date: 01/01/25 Order Info: [id number] - BMP Order Info: [id number] - LIPID Order Info: [id number] - MG Order Info: 3015-3 - TSH Result Comment: Chol esterol level, Desirable <200 mg/dL Borderline high cholesterol 200-239 mg/dL High cholesterol >=240 mg/dL Recommendations of the NCEP Adult Treatment Panel for the following risk-cutoff thresholds for the [place] population. Performed By: #### L 501.5200, L501.9520, L500.2500, L500.4100, L100.0500 #### [facility] [address] [place], [address] Cholesterol in HDL [Mass/Vol] 71 mg/dL Normal [facility] Comment on above: Order Comment: Order Date: 01/01/25 Order Info: [id number] - BMP Order Info: [id number] - LIPID Order Info: [id number] - MG Order Info: 3 - TSH Result Comment: Beena onal Cholesterol Education Program (NCEP) guidelines: <40 mg/dL: Low HDL-cholesterol (major risk factor for CHD) >= 60 mg/dL: High HDL-cholesterol (negative risk factor for CHD) HDL-cholesterol is affected by a number of factors, e.g. smoking, exercise, hormones, sex and age. Performed By: #### L 501.5200, L501.9520, L500.2500, L500.4100, L100.0500 #### [facility] [address] [place], [address] Cholesterol in LDL [Mass/Vol] 119 mg/dL Normal [facility] Comment on above: Order Comment: Order Date: 01/01/25 Order Info: [id number] - BMP Order Info: [id number] - LIPID Order Info: [id number] - MG Order Info: 3016-3 - TSH Result Comment: Bord rzaibg=658-839 mg/dL Higher Dsdl=773 mg/dL or greater Friedwald Equation for LDL-C Performed By: #### L 501.5200, L501.9520, L500.2500, L500.4100, L100.0500 #### [facility] [address] [place], [address] Cholesterol in VLDL [Mass/Vol] 11 mg/dL Normal 5-40 [facility] Comment on above: Order Comment: Order Date: 01/01/25 Order Info: [id number] - BMP Order Info: - LIPID Order Info: [id number] - MG Order Info: [id number] - TSH Performed By: #### L 501.5200, L501.9520, L500.2500, L500.4100, L100.0500 #### [facility] [address] [place], [place], [address] Triglyceride [Mass/Vol] 57 mg/dL Normal [facility] Comment on above: Order Comment: Order Date: 01/01/25 Order Info: [id number] - BMP Order Info: - LIPID Order Info: [id number] - MG Order Info: 3 - TSH Result Comment: The drugs N-Acetylcysteine and Metamizole may falsely depress this assay. Normal range: <150 mg/dL Borderline High: 150-199 mg/dL High: 200-499 mg/dL Very High: >500 mg/dL Performed By: #### L 501.5200, L501.9520, L500.2500, L500.4100, L100.0500 #### [facility] [address] [place], [place], [address] MCV (mean corpuscular volume ) determinationOrdered By: David Anderson on 06-22-2025 MCV (RBC) [Entitic vol] 92.1 fL 81-99 [facility] Magnesiumon 06-22-2025 Magnesium [Mass/Vol] 2.1 mg/dL Normal 1.5-2.2 [facility] Comment on above: Order Comment: Order Date: 01/01/25 Order Info: [id number] - BMP Order Info: - LIPID Order Info: [id number] - MG Order Info: [id number] - TSH Performed By: #### L 501.5200, L501.9520, L500.2500, L500.4100, L100.0500 #### [facility] [address] [place], [address] Magnesium measurement (mass/ volume)Ordered By: David Anderson on 06-22-2025 Magnesium (Unsp spec) [Mass/Vol] 2.1 mg/dL 1.5-2.2 [facility] Mean corpuscular hemoglobin (MCH) determinationOrdered By: David Anderson on 06-22-2025 MCH (RBC) [Entitic mass] 30.9 pg 27.0-32.0 [facility] Mean corpuscular hemoglobin concentration (MCHC) determinationOrdered By: David Anderson on 06-22-2025 MCHC (RBC) [Mass/Vol] 33.5 g/dL 32-36 [facility] Mean platelet volume determi nationOrdered By: David Anderson on 06-22-2025 Platelet mean volume (Bld) [Entitic vol] 11.3 fL 6.2-12.0 [facility] Platelet countOrdered By: Cesar Anderson on 06-22-2025 Platelets (Bld) [#/Vol] 147 10*3/uL Low 150-450 [facility] Potassium measurement (mass/ volume)Ordered By: David Anderson on 06-22-2025 Potassium (Unsp spec) [Mass/Vol] 4.3 mmol/L 3.3-5.1 [facility] RBC Auto (Bld) [#/Vol]Ordere d By: David Anderson on 06-22-2025 RBC (Bld) [#/Vol] 3.69 10*6/uL Low 4.2-5.4 [facility] Screening total cholesterol/ high density lipoprotein (HDL) cholesterol ratioOrdered By: David Anderson on 06-22-2025 Cholesterol.total/Choles terol in HDL [Mass ratio] 2.84 {ratio} [facility] Serum creatinine measurement (mass/volume)Ordered By: David Anderson on 06-22-2025 Creatinine [Mass/Vol] 1.11 mg/dL 0.70-1.20 [facility] Serum glucose measurement (m ass/volume)Ordered By: David Anderson on 06-22-2025 Glucose [Mass/Vol] 101 mg/dL High 70-99 [facility] Serum or plasma calcium tripp urement (mass/volume)Ordered By: David Anderson on 06-22-2025 Calcium [Mass/Vol] 9.3 mg/dL 7.6-11.0 [facility] Serum or plasma cholesterol in HDL measurement (mass/volume)Ordered By: David Anderson on 06-22-2025 Cholesterol in HDL [Mass/Vol] 71 mg/dL >40 [facility] Comment on above: National Cholesterol Education Program (NCEP) guidelines:<40 mg/dL: Low HDL-cholesterol (major risk factor for CHD)>= 60 mg/dL: High HDL-cholesterol (negative risk factor for CHD)HDL-cholesterol is affected by a number of factors, e.g. smoking, exercise, hormones, sex and age. Serum or plasma cholesterol measurement (mass/volume)Ordered By: David Anderson on 06-22-2025 Cholesterol [Mass/Vol] 201 mg/dL <201 [facility] Comment on above: Cholesterol level, D esirable <200 mg/dLBorderline high cholesterol 200-239 mg/dLHigh cholesterol >=240 mg/dLRecommendations of the NCEP Adult Treatment Panel for the following risk-cutoff thresholds for the [place] population. Serum or plasma urea nitroge n measurement (mass/volume)Ordered By: David Anderson on 06-22-2025 Urea nitrogen [Mass/Vol] 23 mg/dL High 4-19 [facility] Sodium levelOrdered By: Octavio Anderson on 06-22-2025 Sodium [Moles/Vol] 139 mmol/L 133-145 [facility] T4 freeOrdered By: Tao Anderson on 06-22-2025 Free T4 [Mass/Vol] 1.10 ng/dL 0.76-1.46 [facility] TSH DL <= 0.005 mIU/L QnOrde red By: David Anderson on 06-22-2025 TSH Qn 5.580 uIU/mL High 0.300-4.200 [facility] Thyroid Stim Hormone (TSH)on 06-22-2025 TSH 5.580 uIU/mL High 0.300-4.200 [facility] Comment on above: Order Comment: Order Date: 01/01/25 Order Info: [id number] - BMP Order Info: [id number] - LIPID Order Info: [id number] - MG Order Info: [id number] - TSH Performed By: #### L 501.5200, L501.9520, L500.2500, L500.4100, L100.0500 #### [facility] [address] [place], [address] Triglycerides measurementOrd ered By: David Anderson on 06-22-2025 Triglyceride [Mass/Vol] 57 mg/dL <199 [facility] Comment on above: The drugs N-Acetylcy steine and Metamizole may falsely depress this assay. Normal range: <150 mg/dLBorderline High: 150-199 mg/dLHigh: 200-499 mg/dLVery High: >500 mg/dL White blood cell (WBC) count Ordered By: David Anderson on 06-22-2025 WBC (Bld) [#/Vol] 5.1 10*3/uL 4.4-11.0 [facility] Anion gap in Serum or Plasma Ordered By: Lashon Baltazar on 05-19-2025 Anion gap [Moles/Vol] 10 mmol/L 03-22 [facility] BUN/creatinine ratioOrdered By: Lashon Baltazar on 05-19-2025 Urea nitrogen/Creatinine [Mass ratio] 19.3 mg/mg 08-27 [facility] Basic Metabolic Profile (BMP )on 05-19-2025 BUN/CRE 19.3 RATIO Normal 08-27 [facility] Comment on above: Performed By: #### L 500.2500 ####[facility] [address] [place], [address] Calcium [Mass/Vol] 9.5 mg/dL Normal 7.6-11.0 [facility] Comment on above: Performed By: #### L 500.2500 ####[facility] [address] [place], [address] Chloride [Moles/Vol] 103 mmol/L Normal 98-108 [facility] Comment on above: Performed By: #### L 500.2500 ####[facility] [address] [place], [address] CO2 [Moles/Vol] 23.2 mmol/L Normal 21.0-32.0 [facility] Comment on above: Performed By: #### L 500.2500 ####[facility] [address] [place], [address] Creatinine [Mass/Vol] 1.10 mg/dL Normal 0.70-1.20 [facility] Comment on above: Performed By: #### L 500.2500 ####[facility] [address] [place], [address] GAP 10 Normal 5-15 [facility] Comment on above: Performed By: #### L 500.2500 ####[facility] [address] [place], [address] GFR/1.73 sq M.predicted among non-blacks MDRD (S/P/Bld) [Vol rate/Area] 54 mL/min/{1.73_m2} Low >60 [facility] Comment on above: Result Comment: mL/m in/1.73m2 CKD-EPI Creatinine Equation (2020) Performed By: #### L 500.2500 ####[facility] [address] [place], [address] Glucose [Mass/Vol] 100 mg/dL High 70-99 [facility] Comment on above: Performed By: #### L 500.2500 ####[facility] [address] [place], [address] Potassium [Moles/Vol] 4.5 mmol/L Normal 3.3-5.1 [facility] Comment on above: Performed By: #### L 500.2500 ####[facility] [address] [place], [address] Sodium [Moles/Vol] 137 mmol/L Normal 133-145 [facility] Comment on above: Performed By: #### L 500.2500 ####[facility] [address] [place], [place], [address] Urea nitrogen [Mass/Vol] 21 mg/dL High 4-19 [facility] Comment on above: Performed By: #### L 500.2500 ####[facility] [address] [place], [address] Carbon dioxide, total [Moles /volume] in Central venous bloodOrdered By: Lashon Baltazar on 05-19-2025 CO2 [Moles/Vol] 23.2 mmol/L 21.0-32.0 [facility] Chloride assayOrdered By: Olivia Baltazar on 05-19-2025 Chloride [Moles/Vol] 103 mmol/L 98-108 [facility] Glomerular filtration rate ( GFR) estimation/1.73 sq m using serum, plasma, or whole bOrdered By: Lashon Baltazar on 05-19-2025 GFR/1.73 sq M.predicted among non-blacks MDRD (S/P/Bld) [Vol rate/Area] 54 mL/min/{1.73_m2} Low >60 [facility] Comment on above: mL/min/1.73m2 CKD-EP I Creatinine Equation (2020) Potassium measurement (mass/ volume)Ordered By: Lashon Baltazar on 05-19-2025 Potassium (Unsp spec) [Mass/Vol] 4.5 mmol/L 3.3-5.1 [facility] Serum creatinine measurement (mass/volume)Ordered By: Lashon Baltazar on 05-19-2025 Creatinine [Mass/Vol] 1.10 mg/dL 0.70-1.20 [facility] Serum glucose measurement (m ass/volume)Ordered By: Lashon Baltazar on 05-19-2025 Glucose [Mass/Vol] 100 mg/dL High 70-99 [facility] Serum or plasma calcium tripp urement (mass/volume)Ordered By: Lashon Baltazar on 05-19-2025 Calcium [Mass/Vol] 9.5 mg/dL 7.6-11.0 [facility] Serum or plasma urea nitroge n measurement (mass/volume)Ordered By: Lashon Baltazar on 05-19-2025 Urea nitrogen [Mass/Vol] 21 mg/dL High 4-19 [facility] Sodium levelOrdered By: Endy thais Giovanny on 05-19-2025 Sodium [Moles/Vol] 137 mmol/L 133-145 [facility] Cardiology Visit Reporton Cardiology Visit Report [facility] [address] [place], [place] [address] OFFICE VISIT Date of Service: 05/03/25 MR#: [id number] Acct: [id number] Name: RADHA THOMAS Rep #: [id number] : 1955 Provider: PAOLO Ruiz Age/Sex: 69/F Location: [facility] Status: Signed HPI HPI History of Present [...] on a beta-clemente and anticoagulation with a [id number] score of 3. Patient did undergo a [...] beats. Patient was seen by EP at [facility]. Patient did undergo an ablation in October [...] Visit Reasons: 3 M FU PER MMM Dictionary Editor Required: No Accompanied by: Self Is patient [...] Medical History (Updated 05/03/25 @ 08:44 by Lashon BOONE, PA) Hx of cardiac pacemaker PAF [...] face s (more content not included)... Normal [facility] ECG 12-LEADon 04-30-2025 ECG 12-LEAD Ventricular Rate 70 Atrial Rate 70 P-R Interval 360 QRS Duration 86 Q-T Interval 416 QTC Calculation(Bazett) 449 P Shubert 38 R Shubert 44 T Shubert 61 QRS Count 12 Q Onset 223 P Onset 43 P Offset 115 T Offset 431 QTC Fredericia 438 Diagnosis Electronic atrial pacemaker When compared with ECG of 10-JAN-2025 15:05, Electronic atrial pacemaker has replaced Electronic ventricular pacemaker Confirmed by Lashonda Beltrán ([id number]) on 05/01/2025 9:28:25 AM Normal [facility] Bilirubin directon 5 Bilirubin.direct [Mass/Vol] 0.26 mg/dL 0.00-0.30 [facility] Bilirubin, totalon 5 Bilirubin [Mass/Vol] 0.62 mg/dL 0.00-1.30 [facility] Laboratory - Chemistry and C hemistry - challengeon 01-12-2025 AST [Catalytic activity/Vol] 24 U/L <32 [facility] Liver Profileon 01-12-2025 Albumin [Mass/Vol] 4.2 g/dL Normal 3.4-4.8 [facility] Comment on above: Performed By: #### L 501.9520, L500.3400, L506.0400 ####[facility] [address] [place], [address] ALK PHOS 83 U/L Normal 35-104 [facility] Comment on above: Performed By: #### L 501.9520, L500.3400, L506.0400 ####[facility] [address] [place], [address] ALT [Catalytic activity/Vol] 23 U/L Normal <=34 [facility] Comment on above: Performed By: #### L 501.9520, L500.3400, L506.0400 ####[facility] [address] [place], [address] AST [Catalytic activity/Vol] 24 U/L Normal <=31 [facility] Comment on above: Performed By: #### L 501.9520, L500.3400, L506.0400 ####[facility] [address] [place], [address] Bilirubin [Mass/Vol] 0.62 mg/dL Normal 0.00-1.30 [facility] Comment on above: Performed By: #### L 501.9520, L500.3400, L506.0400 ####[facility] [address] [place], [address] Bilirubin.direct [Mass/Vol] 0.26 mg/dL Normal 0.00-0.30 [facility] Comment on above: Performed By: #### L 501.9520, L500.3400, L506.0400 ####[facility] [address] [place], [address] Globulin (S) [Mass/Vol] 3.1 g/dL Normal 2.2-4.2 [facility] Comment on above: Performed By: #### L 501.9520, L500.3400, L506.0400 ####[facility] [address] [place], [address] T PROT 7.3 g/dL Normal 5.9-8.4 [facility] Comment on above: Performed By: #### L 501.9520, L500.3400, L506.0400 ####[facility] [address] [place], [address] Serum globulin measurementon 01-12-2025 Globulin (S) [Mass/Vol] 3.1 g/dL 2.2-4.2 [facility] Serum or plasma alanine osborn otransferase (ALT) measurementon 01-12-2025 ALT [Catalytic activity/Vol] 23 U/L <35 [facility] Serum or plasma albumin tripp urement (mass/volume)on 01-12-2025 Albumin [Mass/Vol] 4.2 g/dL 3.4-4.8 [facility] Serum or plasma alkaline chioma sphatase measurementon 01-12-2025 ALP [Catalytic activity/Vol] 83 U/L 35-104 [facility] T4 Free Directon 01-12-2025 T4 FREE DIRECT 1.50 ng/dL High 0.76-1.46 [facility] Comment on above: Performed By: #### L 501.9520, L500.3400, L506.0400 ####[facility] [address] [place], [place], [address] T4 freeon 01-12-2025 Free T4 [Mass/Vol] 1.50 ng/dL High 0.76-1.46 [facility] TSH DL <= 0.005 mIU/L Qnon 0 01-12-2025 Thyroid Stimulating Hormone (TSH) 3.370 uIU/mL 0.300-4.200 [facility] TSH Qn 3.370 uIU/mL 0.300-4.200 [facility] Thyroid Stim Hormone (TSH)on 01-12-2025 TSH 3.370 uIU/mL Normal 0.300-4.200 [facility] Comment on above: Performed By: #### L 501.9520, L500.3400, L506.0400 ####[facility] [address] [place], [address] Total proteinon 01-12-2025 Protein [Mass/Vol] 7.3 g/dL 5.9-8.4 [facility] ECG 12-LEADon 01-10-2025 ECG 12-LEAD Ventricular Rate 70 Atrial Rate 70 QRS Duration 180 Q-T Interval 484 QTC Calculation(Bazett) 522 R Shubert -71 T Shubert 101 QRS Count 12 Q Onset 196 T Offset 438 QTC Fredericia 509 Diagnosis AV sequential or dual chamber electronic pacemaker When compared with ECG of 14-DEC-2024 15:26, Electronic ventricular pacemaker has replaced Electronic atrial pacemaker Confirmed by Lashonda Beltrán ([id number]) on 01/10/2025 4:36:47 PM Normal [facility] Basic metabolic 2000 panelon 12-15-2024 Anion gap [Moles/Vol] 11 mmol/L 10 - 2 0 mmol/L [facility] Calcium [Mass/Vol] 8.9 mg/dL 8.6 - 10. 3 mg/dL [facility] Chloride [Moles/Vol] 106 mmol/L 98 - 10 7 mmol/L [facility] CO2 [Moles/Vol] 21 mmol/L 21 - 32 mmol/L [facility] Creatinine [Mass/Vol] 0.94 mg/dL 0.50 - 1.05 mg/dL [facility] GFR/1.73 sq M.predicted among non-blacks MDRD (S/P/Bld) [Vol rate/Area] 66 mL/min/{1.73_m2} - PINF [facility] Comment on above: Calculations of denia mated GFR are performed using the 2020 CKD-EPI Study Refit equation without the race variable for the IDMS-Traceable creatinine methods. https://jasn.asnjournals.org/content//09/22/ASN.824 8124658 Glucose [Mass/Vol] 163 mg/dL High 74 - 99 mg/dL [facility] Interpretation and review of laboratory results Abnormal [facility] Potassium [Moles/Vol] 4.2 mmol/L 3.5 - 5.3 mmol/L [facility] Sodium [Moles/Vol] 134 mmol/L Low 136 - 145 mmol/L [facility] Urea nitrogen [Mass/Vol] 18 mg/dL 6 - 23 mg/d L [facility] Anion gap [Moles/Vol] 11 mmol/L Normal 10-20 [facility] Comment on above: Performed By: #### 2 4321-2 #### LUKE KIMBLE ([id number]) [facility] ([facility]) [address] [place] [address] Calcium [Mass/Vol] 8.9 mg/dL Normal 8.6-10.3 [facility] Comment on above: Performed By: #### 2 4321-2 #### LUKE KIMBLE ([id number]) [facility] ([facility]) [address] [place] [address] Chloride [Moles/Vol] 106 mmol/L Normal 98-107 [facility] Comment on above: Performed By: #### 2 4321-2 #### LUKE KIMBLE ([id number]) [facility] ([facility]) [address] [place] [address] CO2 [Moles/Vol] 21 mmol/L Normal 21-32 [facility] Comment on above: Performed By: #### 2 4321-2 #### LUKE KIMBLE ([id number]) [facility] ([facility]) [address] [place] [address] Creatinine [Mass/Vol] 0.94 mg/dL Normal 0.50-1.05 [facility] Comment on above: Performed By: #### 2 4321-2 #### LUEK KIMBLE ([id number]) [facility] ([facility]) [address] [place] [address] Glomerular filtration rate/1.73 sq M.predicted 66 mL/min/1.73m*2 Normal >60 [facility] Comment on above: Result Comment: Calc ulations of estimated GFR are performed using the 2020 CKD-EPI Study Refit equation without the race variable for the IDMS-Traceable creatinine methods. https://jasn.asnjournals.org/content/early//ASN.526 1479915 Performed By: #### 2 4321-2 #### LUKE KIMBLE ([id number]) [facility] ([facility]) [address] [place] [address] Glucose [Mass/Vol] 163 mg/dL High 74-99 [facility] Comment on above: Performed By: #### 2 4321-2 #### LUKE KIMBLE ([id number]) [facility] ([facility]) [address] [place] [address] Potassium [Moles/Vol] 4.2 mmol/L Normal 3.5-5.3 [facility] Comment on above: Performed By: #### 2 4321-2 #### LUKE KIMBLE ([id number]) [facility] ([facility]) [address] [place] [address] Sodium [Moles/Vol] 134 mmol/L Low 136-145 [facility] Comment on above: Performed By: #### 2 4321-2 #### LUKE KIMBLE ([id number]) [facility] ([facility]) [address] [place] [address] Urea nitrogen [Mass/Vol] 18 mg/dL Normal 6-23 [facility] Comment on above: Performed By: #### 2 4321-2 #### LUKE KIMBLE ([id number]) [facility] ([facility]) [address] [place] [address] CBC panel Auto (Bld)on 12-15 Erythrocyte distribution width (RBC) [Ratio] 12.8 % 11.5 - 14.5 % [facility] Hematocrit (Bld) [Volume fraction] 36.3 % 36.0 - 46.0 % [facility] Hemoglobin (Bld) [Mass/Vol] 11.7 g/dL Low 12.0 - 16.0 g/dL [facility] Interpretation and review of laboratory results Abnormal [facility] MCH (RBC) [Entitic mass] 29.7 pg 26. 0 - 34.0 pg [facility] MCHC (RBC) [Mass/Vol] 32.2 g/dL 32.0 - 36.0 g/dL [facility] MCV (RBC) [Entitic vol] 92 fL 80 - 100 fL [facility] Nucleated RBC/100 WBC (Bld) [Ratio] 0 % [facility] Platelets (Bld) [#/Vol] 142 10*3/uL Low [facility] RBC (Bld) [#/Vol] 3.94 10*6/uL [facility] WBC (Bld) [#/Vol] 7.4 10*3/uL [facility] Erythrocyte distribution width (RBC) [Ratio] 12.8 % Normal 11.5-14.5 [facility] Comment on above: Performed By: #### 5 8410-2 #### LUKE KIMBLE ([id number]) [facility] ([facility]) [address] [place] [address] Hematocrit (Bld) [Volume fraction] 36.3 % Normal 36.0-46.0 [facility] Comment on above: Performed By: #### 5 8410-2 #### LUKE KIMBLE ([id number]) [facility] ([facility]) [address] [place] [address] Hemoglobin (Bld) [Mass/Vol] 11.7 g/dL Low 12.0-16.0 [facility] Comment on above: Performed By: #### 5 8410-2 #### LUKE KIMBLE ([id number]) [facility] ([facility]) [address] [place] [address] MCH (RBC) [Entitic mass] 29.7 pg Normal 26.0-34.0 [facility] Comment on above: Performed By: #### 5 8410-2 #### LUKE KIMBLE ([id number]) [facility] ([facility]) [address] [place] [address] MCHC (RBC) [Mass/Vol] 32.2 g/dL Normal 32.0-36.0 [facility] Comment on above: Performed By: #### 5 8410-2 #### LUKE KIMBLE ([id number]) [facility] ([facility]) [address] [place] [address] MCV (RBC) [Entitic vol] 92 fL Normal 80-100 [facility] Comment on above: Performed By: #### 5 8410-2 #### LUKE KIMBLE ([id number]) [facility] ([facility]) [address] [place] [id number] Nucleated RBC/100 WBC (Bld) [Ratio] 0.0 /100 WBCs Normal 0.0-0.0 [facility] Comment on above: Performed By: #### 5 8410-2 #### LUKE KIMBLE ([id number]) [facility] ([facility]) [address] [place] [id number] Platelets (Bld) [#/Vol] 142 x10*3/uL Low 150-450 [facility] Comment on above: Performed By: #### 5 8410-2 #### LUKE KIMBLE ([id number]) [facility] ([facility]) [address] [place] [address] RBC (Bld) [#/Vol] 3.94 x10*6/uL Low 4.00-5.20 [facility] Comment on above: Performed By: #### 5 8410-2 #### LUKE KIMBLE ([id number]) [facility] ([facility]) [address] [place] [address] WBC (Bld) [#/Vol] 7.4 x10*3/uL Normal 4.4-11.3 [facility] Comment on above: Performed By: #### 5 8410-2 #### LUKE KIMBLE ([id number]) [facility] ([facility]) [address] [place] [address] XR CHEST 2 VIEWSon 5 XR CHEST 2 VIEWS Interpreted By: Candido Reza, STUDY: XR CHEST 2 VIEWS; 12/15/2024 8:35 am INDICATION: Signs/Symptoms:s/p device implant r/o pneumothorax and ensure lead placement intact. COMPARISON: 10/16/2024 ACCESSION NUMBER(S): [id number] ORDERING CLINICIAN: HELEN ORTIZ FINDINGS: CARDIOMEDIASTINAL SILHOUETTE: Cardiomediastinal silhouette is normal in size and configuration. Cardiac pacer. LUNGS: Lungs are clear. ABDOMEN: No remarkable upper abdominal findings. BONES: No acute osseous changes. Discogenic degenerative changes. IMPRESSION: 1. No evidence of acute cardiopulmonary process. MACRO: None Signed by: Candido Reza 12/15/2024 9:18 AM Dictation workstation: [id number] [facility] Comment on above: Order Comment: Vida singleton ead. Discharge pending film. XR Chest 2 Viewson 5 1. No evidence of acute cardiopulmonary process. MACRO: None Signed by: Candido Reza 12/15/2024 9:18 AM Dictation workstation: [id number] [facility] Interpreted By: Candido Reza, STUDY: XR CHEST 2 VIEWS; 12/15/2024 8:35 am INDICATION: Signs/Symptoms:s/p device implant r/o pneumothorax and ensure lead placement intact. COMPARISON: 10/16/2024 ACCESSION NUMBER(S): [id number] ORDERING CLINICIAN: HELEN ORTIZ FINDINGS: CARDIOMEDIASTINAL SILHOUETTE: Cardiomediastinal silhouette is normal in size and configuration. Cardiac pacer. LUNGS: Lungs are clear. ABDOMEN: No remarkable upper abdominal findings. BONES: No acute osseous changes. Discogenic degenerative changes. MMODAL Candido Reza MD - 12/15/2024 Interpreted By: Candido Reza, STUDY: XR CHEST 2 VIEWS; 12/15/2024 8:35 am INDICATION: Signs/Symptoms:s/p device implant r/o pneumothorax and ensure lead placement intact. COMPARISON: 10/16/2024 ACCESSION NUMBER(S): [id number] ORDERING CLINICIAN: HELEN ORTIZ FINDINGS: CARDIOMEDIASTINAL SILHOUETTE: Cardiomediastinal silhouette is normal in size and configuration. Cardiac pacer. LUNGS: Lungs are clear. ABDOMEN: No remarkable upper abdominal findings. BONES: No acute osseous changes. Discogenic degenerative changes. IMPRESSION: 1. No evidence of acute cardiopulmonary process. MACRO: None Signed by: Candido Reza 12/15/2024 9:18 AM Dictation workstation: [id number] [facility] Work Phone: Radiology Study observation (narrative) [facility] Work Phone: XR Chest 2 ViewsOrdered By: Candido Reza on 12-15-2024 [facility] Work Phone: ECG 12-LEADon 12-14-2024 ECG 12-LEAD Ventricular Rate 70 Atrial Rate 68 QRS Duration 82 Q-T Interval 390 QTC Calculation(Bazett) 421 R Shubert 24 T Shubert 47 QRS Count 12 Q Onset 224 T Offset 419 QTC Fredericia 410 Diagnosis Electronic atrial pacemaker When compared with ECG of 15-NOV-2024 14:46, Electronic atrial pacemaker has replaced Atrial fibrillation Confirmed by Lashonda Bletrán ([id number]) on 12/28/2024 8:36:37 AM Normal [facility] Electrophysiology studyOrder ed By: Lashonda Beltrán on 12-14-2024 [facility] Work Phone: Cardiology Visit Reporton Cardiology Visit Report [facility] [address] [place], [place] [address] OFFICE VISIT Date of Service: 12/13/24 MR#: [id number] Acct: [id number] Name: RADHA THOMAS Rep #: [id number] : 1955 Provider: PAOOL Ruiz Age/Sex: 69/F Location: [facility] Status: Signed HPI HPI History of Present [...] on a beta-clemente and anticoagulation with a VUT1DL1-SLAw score of 3. Patient did undergo a [...] beats. Patient was seen by EP at [facility]. Patient did undergo an ablation in October [...] (%) 96 Intake Visit Reasons: 4 M Dictionary Editor Required: No Is patient in pain?: No [...] you fallen in the past year?: No [facility] Medical History (Updated 12/13/24 @ 17:02 by Lashon BOONE, PA) Persistent atrial fibrillation History of [...] to inspection (more content not included)... Normal [facility] Basic Metabolic Profile (BMP )on 12-06-2024 BUN/CRE 14.4 RATIO Normal - [facility] Comment on above: Order Comment: PATIE NT WANTS RESULTS TO GO TO DR. RYAN AND DR ANDERSON Performed By: #### L 500.2500, L100.0500 #### [facility] [address] [place], [address] CA,Total 9.0 mg/dL Normal 8.5-10.1 [facility] Comment on above: Order Comment: LYNETTEKannan NT WANTS RESULTS TO GO TO DR. RYAN AND DR ANDERSON Performed By: #### L 500.2500, L100.0500 #### [facility] [address] [place], [address] Chloride [Moles/Vol] 108 mmol/L High 98-107 [facility] Comment on above: Order Comment: BRIAN LANZA WANTS RESULTS TO GO TO DR. RYAN AND DR ANDERSON Performed By: #### L 500.2500, L100.0500 #### [facility] [address] [place], [address] CO2 [Moles/Vol] 26.0 mmol/L Normal 21.0-32.0 [facility] Comment on above: Order Comment: BRIAN LANZA WANTS RESULTS TO GO TO DR. RYAN AND DR ANDERSON Performed By: #### L 500.2500, L100.0500 #### [facility] [address] [place], [address] Creatinine [Mass/Vol] 0.90 mg/dL Normal 0.55-1.02 [facility] Comment on above: Order Comment: BRIAN LANZA WANTS RESULTS TO GO TO DR. RYAN AND DR ANDERSON Result Comment: The validity of the calculated GFR GFRAA in patients over 70 years has not been determined. Clinical correlation is essential. Performed By: #### L 500.2500, L100.0500 #### [facility] [address] [place], [address] EST GFR - AA 80 mL/min Normal >60 [facility] Comment on above: Order Comment: BRIAN POOL WANTS RESULTS TO GO TO DR. RYAN AND DR ANDERSON Result Comment: Afri can Citizen Of [place] GFR Calc Performed By: #### L 500.2500, L100.0500 #### [facility] [address] [place], [address] GAP 6 Normal 5-15 [facility] Comment on above: Order Comment: BRIAN POOL WANTS RESULTS TO GO TO DR. RYAN AND DR ANDERSON Performed By: #### L 500.2500, L100.0500 #### [facility] [address] [place], [address] GFR/1.73 sq M.predicted among non-blacks MDRD (S/P/Bld) [Vol rate/Area] 66 mL/min/{1.73_m2} Normal >60 [facility] Comment on above: Order Comment: BRIAN LANZA WANTS RESULTS TO GO TO DR. RYAN AND DR ANDERSON Result Comment: Non- GFR Calc Performed By: #### L 500.2500, L100.0500 #### [facility] [address] [place], [address] Glucose [Mass/Vol] 105 mg/dL Normal 74-106 [facility] Comment on above: Order Comment: BRIAN POOL WANTS RESULTS TO GO TO DR. RYAN AND DR ANDERSON Result Comment: Fast ing Glucose result from 100 to 125 mg/dL suggests IMPAIRED HOMEOSTASIS per A.D.A. criteria. Performed By: #### L 500.2500, L100.0500 #### [facility] [address] [place], [address] Potassium [Moles/Vol] 4.3 mmol/L Normal 3.5-5.1 [facility] Comment on above: Order Comment: BRIAN LANZA WANTS RESULTS TO GO TO DR. RYAN AND DR ANDERSON Performed By: #### L 500.2500, L100.0500 #### [facility] [address] [place], [address] Sodium [Moles/Vol] 140 mmol/L Normal 136-145 [facility] Comment on above: Order Comment: BRIAN NT WANTS RESULTS TO GO TO DR. RYAN AND DR ANDERSON Performed By: #### L 500.2500, L100.0500 #### [facility] [address] [place], [address] Urea nitrogen [Mass/Vol] 13 mg/dL Normal 7-18 [facility] Comment on above: Order Comment: BRIAN NT WANTS RESULTS TO GO TO DR. RYAN AND DR ANDERSON Performed By: #### L 500.2500, L100.0500 #### [facility] [address] [place], [address] Blood urea nitrogen (BUN)/cr eatinine ratioon 12-06-2024 Urea nitrogen/Creatinine [Mass ratio] 14.4 mg/mg 10-20 [facility] CBC-Complete Blood Cnt No Di ffon 12-06-2024 Erythrocyte distribution width (RBC) [Ratio] 12.6 % Normal 11.6-14.6 [facility] Comment on above: Order Comment: BRIAN NT WANTS RESULTS TO GO TO DR. RYAN AND DR ANDERSON Performed By: #### L 500.2500, L100.0500 #### [facility] [address] [place], [address] Hematocrit (Bld) [Volume fraction] 36.1 % Low 37-47 [facility] Comment on above: Order Comment: BRIAN NT WANTS RESULTS TO GO TO DR. DARCI ANDERSON Performed By: #### L 500.2500, L100.0500 #### [facility] [address] [place], [address] Hemoglobin (Bld) [Mass/Vol] 12.0 g/dL Normal 12.0-15.0 [facility] Comment on above: Order Comment: BRIAN NT WANTS RESULTS TO GO TO DR. RYAN AND DR ANDERSON Performed By: #### L 500.2500, L100.0500 #### [facility] [address] [place], [address] MCH (RBC) [Entitic mass] 30.3 pg Normal 27.0-32.0 [facility] Comment on above: Order Comment: BRIAN LANZA WANTS RESULTS TO GO TO DR. RYAN AND DR ANDERSON Performed By: #### L 500.2500, L100.0500 #### [facility] [address] [place], [address] MCHC (RBC) [Mass/Vol] 33.2 g/dL Normal 32-36 [facility] Comment on above: Order Comment: BRIAN LANZA WANTS RESULTS TO GO TO DR. RYAN AND DR ANDERSON Performed By: #### L 500.2500, L100.0500 #### [facility] [address] [place], [address] MCV (RBC) [Entitic vol] 91.2 fL Normal 81-99 [facility] Comment on above: Order Comment: BRIAN LANZA WANTS RESULTS TO GO TO DR. RYAN AND DR ANDERSON Performed By: #### L 500.2500, L100.0500 #### [facility] [address] [place], [address] Platelet mean volume (Bld) [Entitic vol] 11.6 fL Normal 6.2-12.0 [facility] Comment on above: Order Comment: BRIAN LANZA WANTS RESULTS TO GO TO DR. RYAN AND DR ANDERSON Performed By: #### L 500.2500, L100.0500 #### [facility] [address] [place], [address] Platelets (Bld) [#/Vol] 147 10*3/uL Low 150-450 [facility] Comment on above: Order Comment: BRIAN LANZA WANTS RESULTS TO GO TO DR. RYNA AND DR ANDERSON Performed By: #### L 500.2500, L100.0500 #### [facility] [address] [place], [address] RBC (Bld) [#/Vol] 3.96 10*6/uL Low 4.2-5.4 [facility] Comment on above: Order Comment: BRIAN POOL WANTS RESULTS TO GO TO DR. RYAN AND DR ANDERSON Performed By: #### L 500.2500, L100.0500 #### [facility] [address] [place], [address] RDW SD 41.8 fl Normal 35.1-43.9 [facility] Comment on above: Order Comment: BRIAN POOL WANTS RESULTS TO GO TO DR. RYAN AND DR ANDERSON Performed By: #### L 500.2500, L100.0500 #### [facility] [address] [place], [address] WBC (Bld) [#/Vol] 4.9 10*3/uL Normal 4.4-11.0 [facility] Comment on above: Order Comment: BRIAN POOL WANTS RESULTS TO GO TO DR. RYAN AND DR ANDERSON Performed By: #### L 500.2500, L100.0500 #### [facility] [address] [place], [address] Carbon dioxide measurementon 12-06-2024 CO2 [Moles/Vol] 26.0 mmol/L 21.0-32.0 [facility] Chloride measurementon 12-06 Chloride [Moles/Vol] 108 mmol/L High 98-107 [facility] Erythrocyte distribution wid th ratioon 12-06-2024 Erythrocyte distribution width (RBC) [Ratio] 12.6 % 11.6-14.6 [facility] Erythrocyte distribution wid th standard deviationon 12-06-2024 Erythrocyte distribution width (RBC) [Entitic vol] 41.8 fL 35.1-43.9 [facility] Estimated glomerular filtrat ion rate (GFR) Americanon 12-06-2024 Estimated GFR (MDRD) Amer 80 mL/min >60 [facility] Comment on above: GFR Calc Glomerular filtration rate ( GFR) estimationon 12-06-2024 Estimated GFR (MDRD) Non-Af Amer 66 mL/min >60 [facility] Comment on above: Non- GFR Calc Glucose measurementon 2024 Glucose [Mass/Vol] 105 mg/dL 74-106 [facility] Comment on above: Fasting Glucose resu lt from 100 to 125 mg/dL suggests IMPAIRED HOMEOSTASIS per A.D.A. criteria. Hematocrit Auto (Bld) [Volum e fraction]on 12-06-2024 Hematocrit (Bld) [Volume fraction] 36.1 % Low 37-47 [facility] Hemoglobin measurementon Hemoglobin (Bld) [Mass/Vol] 12.0 g/dL 12.0-15.0 [facility] MCV (mean corpuscular volume ) determinationon 12-06-2024 MCV (RBC) [Entitic vol] 91.2 fL 81-99 [facility] Mean corpuscular hemoglobin (MCH) determinationon 12-06-2024 MCH (RBC) [Entitic mass] 30.3 pg 27.0-32.0 [facility] Mean corpuscular hemoglobin concentration (MCHC) determinationon 12-06-2024 MCHC (RBC) [Mass/Vol] 33.2 g/dL 32-36 [facility] Mean platelet volume determi nationon 12-06-2024 Platelet mean volume (Bld) [Entitic vol] 11.6 fL 6.2-12.0 [facility] Platelet counton 12-06-2024 Platelets (Bld) [#/Vol] 147 10*3/uL Low 150-450 [facility] Potassium measurementon 11-09 Potassium [Moles/Vol] 4.3 mmol/L 3.5-5.1 [facility] RBC Auto (Bld) [#/Vol]on RBC (Bld) [#/Vol] 3.96 10*6/uL Low 4.2-5.4 [facility] Serum anion gap measuremento n 12-06-2024 Anion gap [Moles/Vol] 6 mmol/L 5-15 [facility] Serum or plasma calcium tripp urement (mass/volume)on 12-06-2024 Calcium [Mass/Vol] 9.0 mg/dL 8.5-10.1 [facility] Serum or plasma creatinine m easurement (mass/volume)on 12-06-2024 Creatinine [Mass/Vol] 0.90 mg/dL 0.55-1.02 [facility] Comment on above: The validity of the calculated GFR & GFRAA in patients over 70 years has not been determined. Clinical correlation is essential. Serum or plasma urea nitroge n measurement (mass/volume)on 12-06-2024 Urea nitrogen [Mass/Vol] 13 mg/dL 7-18 [facility] Sodium levelon 12-06-2024 Sodium [Moles/Vol] 140 mmol/L 136-145 [facility] White blood cell (WBC) count on 12-06-2024 WBC (Bld) [#/Vol] 4.9 10*3/uL 4.4-11.0 [facility] ECG 12-LEADon 11-15-2024 ECG 12-LEAD Ventricular Rate 91 Atrial Rate 96 QRS Duration 80 Q-T Interval 354 QTC Calculation(Bazett) 435 R Shubert 26 T Shubert 48 QRS Count 15 Q Onset 221 T Offset 398 QTC Fredericia 407 Diagnosis Atrial fibrillation Abnormal ECG When compared with ECG of 16-OCT-2024 09:44, Nonspecific T wave abnormality, improved in Inferior leads T wave inversion no longer evident in Anterior leads Confirmed by Lashonda Beltrán ([id number]) on 11/16/2024 8:51:44 AM Normal [facility] CBC panel Auto (Bld)on 10-16 Erythrocyte distribution width (RBC) [Ratio] 12.4 % 11.5 - 14.5 % [facility] Hematocrit (Bld) [Volume fraction] 30.8 % Low 36.0 - 46.0 % [facility] Hemoglobin (Bld) [Mass/Vol] 10.6 g/dL Low 12.0 - 16.0 g/dL [facility] Interpretation and review of laboratory results Abnormal [facility] MCH (RBC) [Entitic mass] 29.7 pg 26. 0 - 34.0 pg [facility] MCHC (RBC) [Mass/Vol] 34.4 g/dL 32.0 - 36.0 g/dL [facility] MCV (RBC) [Entitic vol] 86 fL 80 - 100 fL [facility] Nucleated RBC/100 WBC (Bld) [Ratio] 0 % [facility] Platelets (Bld) [#/Vol] 104 10*3/uL Low [facility] RBC (Bld) [#/Vol] 3.57 10*6/uL Low [facility] WBC (Bld) [#/Vol] 7.2 10*3/uL [facility] Erythrocyte distribution width (RBC) [Ratio] 12.4 % Normal 11.5-14.5 [facility] Comment on above: Performed By: #### 2 341-6 #### TEOFILO Flowers ([id number]) [facility] ([facility]) [address] [place] [address] Hematocrit (Bld) [Volume fraction] 30.8 % Low 36.0-46.0 [facility] Comment on above: Performed By: #### 2 341-6 #### TEOFILO Flowers ([id number]) [facility] ([facility]) [address] [place] [address] Hemoglobin (Bld) [Mass/Vol] 10.6 g/dL Low 12.0-16.0 [facility] Comment on above: Performed By: #### 2 341-6 #### TEOFILO Flowers ([id number]) [facility] ([facility]) [address] [place] [address] MCH (RBC) [Entitic mass] 29.7 pg Normal 26.0-34.0 [facility] Comment on above: Performed By: #### 2 341-6 #### TEOFILO Flowers ([id number]) [facility] ([facility]) [address] [place] [address] MCHC (RBC) [Mass/Vol] 34.4 g/dL Normal 32.0-36.0 [facility] Comment on above: Performed By: #### 2 341-6 #### TEOFILO Flowers ([id number]) [facility] ([facility]) [address] [place] [address] MCV (RBC) [Entitic vol] 86 fL Normal 80-100 [facility] Comment on above: Performed By: #### 2 341-6 #### TEOFILO Flowers ([id number]) [facility] ([facility]) [address] [place] [address] Nucleated RBC/100 WBC (Bld) [Ratio] 0.0 /100 WBCs Normal 0.0-0.0 [facility] Comment on above: Performed By: #### 2 341-6 #### TEOFILO Flowers ([id number]) [facility] ([facility]) [address] [place] [address] Platelets (Bld) [#/Vol] 104 x10*3/uL Low 150-450 [facility] Comment on above: Performed By: #### 2 341-6 #### TEOFILO Flowers ([id number]) [facility] ([facility]) [address] [place] [address] RBC (Bld) [#/Vol] 3.57 x10*6/uL Low 4.00-5.20 [facility] Comment on above: Performed By: #### 2 341-6 #### TEOFILO Flowers ([id number]) [facility] ([facility]) [address] [place] [address] WBC (Bld) [#/Vol] 7.2 x10*3/uL Normal 4.4-11.3 [facility] Comment on above: Performed By: #### 2 341-6 #### TEOFILO Flowers ([id number]) [facility] ([facility]) [address] [place] [address] ECG 12-LEADon 10-16-2024 ECG 12-LEAD Ventricular Rate 92 Atrial Rate 91 QRS Duration 92 Q-T Interval 366 QTC Calculation(Bazett) 452 R Shubert 19 T Shubert 268 QRS Count 15 Q Onset 224 T Offset 407 QTC Fredericia 422 Diagnosis Atrial fibrillation Nonspecific ST and T wave abnormality Abnormal ECG When compared with ECG of 15-OCT-2024 13:02, No significant change was found Confirmed by Lashonda Beltrán ([id number]) on 10/16/2024 12:16:39 PM Normal [facility] Electrocardiogram, 12-lead P RN ACS symptomsOrdered By: Lashonda Beltrán on 10-16-2024 Atrial Rate 91 BPM [facility] Work Phone: [phone] Q Onset 224 ms [facility] Work Phone: [phone] QRS Count 15 beats [facility] Work Phone: [phone] QRS Duration 92 ms [facility] Work Phone: [phone] QT Interval 366 ms [facility] Work Phone: [phone] QTC Calculation(Bazett) 452 ms [facility] Work Phone: [phone] QTC Fredericia 422 ms [facility] Work Phone: [phone] R Shubert 19 degrees [facility] Work Phone: [phone] T Shubert 268 degrees [facility] Work Phone: [phone] T Offset 407 ms [facility] Work Phone: [phone] Ventricular Rate 92 BPM [facility] Work Phone: [phone] [facility] Work Phone: [phone] Electrocardiogram, 12-lead P RN ACS symptomson 10-16-[address] N[address] and T wave abnormality Abnormal ECG When compared with ECG of 15-OCT-2024 13:02, No significant change was found Confirmed by Lashonda Beltrán ([id number]) on 10/16/2024 12:16:39 PM MUSE Lashonda Beltrán MD - 10/16/[address] and T wave abnormality Abnormal ECG When compared with ECG of 15-OCT-2024 13:02, No significant change was found Confirmed by Lashonda Beltrán ([id number]) on 10/16/2024 12:16:39 PM [facility] Work Phone: Magnesiumon 10-16-2024 Magnesium [Mass/Vol] 2.12 mg/dL 1.60 - 2.40 mg/dL [facility] Magnesium [Mass/Vol] 2.12 mg/dL Normal 1.60-2.40 [facility] Comment on above: Performed By: #### 2 341-6 #### TEOFILO Flowers ([id number]) [facility] ([facility]) [address] [place] [address] Magnesium [Mass/Vol]on 10-16 Interpretation and review of laboratory results Normal [facility] No Panel Informationon 10-16 [facility] Renal function 2000 panelon 10-16-2024 Albumin BCP dye [Mass/Vol] 3.4 g/dL 3.4 - 5.0 g/dL [facility] Anion gap [Moles/Vol] 12 mmol/L 10 - 2 0 mmol/L [facility] Calcium [Mass/Vol] 8.2 mg/dL Low 8.6 - 10. 6 mg/dL [facility] Chloride [Moles/Vol] 108 mmol/L High 98 - 10 7 mmol/L [facility] CO2 [Moles/Vol] 23 mmol/L 21 - 32 mmol/L [facility] Creatinine [Mass/Vol] 0.62 mg/dL 0.50 - 1.05 mg/dL [facility] [facility] eGFR - PINF [facility] Comment on above: Calculations of denia mated GFR are performed using the 2020 CKD-EPI Study Refit equation without the race variable for the IDMS-Traceable creatinine methods. https://jasn.asnjournals.org/content/early//ASN.844 4982212 Glucose [Mass/Vol] 111 mg/dL High 74 - 99 mg/dL [facility] Interpretation and review of laboratory results Abnormal [facility] Phosphate [Mass/Vol] 2 mg/dL Low 2.5 - 4 .9 mg/dL [facility] Comment on above: The performance marc acteristics of phosphorus testing in heparinized plasma have been validated by the individual laboratory site where testing is performed. Testing on heparinized plasma is not approved by the FDA; however, such approval is not necessary. Potassium [Moles/Vol] 3.9 mmol/L 3.5 - 5.3 mmol/L [facility] Sodium [Moles/Vol] 139 mmol/L 136 - 145 mmol/L [facility] Urea nitrogen [Mass/Vol] 9 mg/dL 6 - 23 mg/d L [facility] Albumin BCP dye [Mass/Vol] 3.4 g/dL Normal 3.4-5.0 [facility] Comment on above: Performed By: #### 1 9123-9 #### TEOFILO Flowers ([id number]) [facility] ([facility]) [id number] [place] [address] 33849 Anion gap [Moles/Vol] 12 mmol/L Normal 10-20 [facility] Comment on above: Performed By: #### 1 9123-9 #### TEOFILO Flowers ([id number]) [facility] ([facility]) [address] [place] [address] 96922 Calcium [Mass/Vol] 8.2 mg/dL Low 8.6-10.6 [facility] Comment on above: Performed By: #### 1 9123-9 #### TEOFILO Flowers ([id number]) [facility] ([facility]) [address] [place] [address] 09350 Chloride [Moles/Vol] 108 mmol/L High 98-107 [facility] Comment on above: Performed By: #### 1 9123-9 #### TEOFILO Flowers ([id number]) [facility] ([facility]) [id number] [place] [address] 01424 CO2 [Moles/Vol] 23 mmol/L Normal 21-32 [facility] Comment on above: Performed By: #### 1 9123-9 #### TEOFILO Flowers ([id number]) [facility] ([facility]) [address] [place] [address] 10794 Creatinine [Mass/Vol] 0.62 mg/dL Normal 0.50-1.05 [facility] Comment on above: Performed By: #### 1 9123-9 #### TEOFILO Flowers ([id number]) [facility] ([facility]) [address] [place] [address] GFR/1.73 sq M.predicted MDRD (S/P/Bld) [Vol rate/Area] mL/min/{1.73_m2} Normal >60 [facility] Comment on above: Result Comment: Calc ulations of estimated GFR are performed using the 2020 CKD-EPI Study Refit equation without the race variable for the IDMS-Traceable creatinine methods. https://jasn.asnjournals.org/content/early//ASN.099 9301128 Performed By: #### 1 9123-9 #### TEOFILO Flowers ([id number]) [facility] ([facility]) [address] [place] [address] 11198 Glucose [Mass/Vol] 111 mg/dL High 74-99 [facility] Comment on above: Performed By: #### 1 9123-9 #### TEOFILO Flowers ([id number]) [facility] ([facility]) [address] [place] [address] 30622 Phosphate [Mass/Vol] 2.0 mg/dL Low 2.5-4.9 [facility] Comment on above: Result Comment: The performance characteristics of phosphorus testing in heparinized plasma have been validated by the individual laboratory site where testing is performed. Testing on heparinized plasma is not approved by the FDA; however, such approval is not necessary. Performed By: #### 1 9123-9 #### TEOFILO Flowers ([id number]) [facility] ([facility]) [address] [place] [address] Potassium [Moles/Vol] 3.9 mmol/L Normal 3.5-5.3 [facility] Comment on above: Performed By: #### 1 9123-9 #### TEOFILO Flowers ([id number]) [facility] ([facility]) [address] [place] [address] 07861 Sodium [Moles/Vol] 139 mmol/L Normal 136-145 [facility] Comment on above: Performed By: #### 1 9123-9 #### ETOFILO Flowers ([id number]) [facility] ([facility]) [address] [place] [address] 68829 Urea nitrogen [Mass/Vol] 9 mg/dL Normal 6-23 [facility] Comment on above: Performed By: #### 1 9123-9 #### TEOFILO Flowers ([id number]) [facility] ([facility]) [address] [place] [address] 91630 US Heart TransthoracicOrdere d By: Colton Valle on 10-16-2024 LV EF 58 % [facility] Work Phone: [facility] Work Phone: Heart Transthoracicon [facility], [address] [place], [place] [id number] and TRANSTHORACIC ECHOCARDIOGRAM REPORT Patient Name: RADHA QUIROSCHAD Reading Physician: [id number] Colton Valle MD Study Date: 10/15/2024 Ordering Provider: [id number] KRYSTINA BRONSON MRN/PID: [id number] Fellow: Nurse: Date of /Age: 8 1955 / 69 years Recovery Unit Operator: Gender assigned at F Additional Staff: : Height: Admit Date: 10/13/2024 Weight: Admission Status: Inpatient - Routine BSA / BMI: m2 / kg/m2 Study Type: TRANSTHORACIC ECHO (TTE) LIMITED Diagnosis/ICD: Longstanding persistent AFib-I48.11 CPT Code: Echo Limited-67419; Doppler Limited-52867; Color Doppler-23715 Study Detail: The following Echo studies were [...] inspiratory collapse less than 50%. 7. Limited manager location fellow echo. RECOMMENDATIONS: Utilizing an FDA cleared automated machine learning algorithm (EchoGo Heart Failure by [employer]), the analysis of the apical 4-chamber echocardiogram [...] Pressure: 8 mmHg IVC Diam: 2.20 cm [id number] Colton Valle MD Electronically signed on 10/16/2024 at 3:47:28 PM Final Colton Saavedra MD - 10/16/2024 [facility], [address] [place] [address] and TRANSTHORACIC ECHOCARDIOGRAM REPORT Patient Name: RADHA THOMAS Reading Physician: [id number] Colton Valle MD Study Date: 10/15/2024 Ordering Provider: [id number] KRYSTINA BRONSON MRN/PID: [id number] Fellow: Nurse: Date of /Age: 8 1955 / 69 years Recovery Unit Operator: Gender assigned at F Additional Staff: : Height: Admit Date: 10/13/2024 Weight: Admission Status: Inpatient - Routine BSA / BMI: m2 / kg/m2 Study Type: TRANSTHORACIC ECHO (TTE) LIMITED Diagnosis/ICD: Longstanding persistent AFib-I48.11 CPT Code: Echo Limited-58155; Doppler Limited-95027; Color Doppler-92492 Study Detail: The following Echo studies were [...] inspiratory collapse less than 50%. 7. Limited manager location fellow echo. RECOMMENDATIONS: Utilizing an FDA cleared automated machine learning algorithm (EchoGo Heart Failure by [employer]), the analysis of the apical 4-chamber echocardiogram [...] Pressure: 8 mmHg IVC Diam: 2.20 cm [id number] Colton Valle MD Electronically signed on 10/16/2024 at 3:47:28 PM Final [facility] Work Phone: XR CHEST 1 VIEWon 10-16-2024 XR CHEST 1 VIEW Interpreted By: Juan Mcdaniels, STUDY: XR CHEST 1 VIEW; 10/16/2024 8:04 am INDICATION: Signs/Symptoms:TVP positioning. COMPARISON: Chest radiograph dated 10/14/2024. ACCESSION NUMBER(S): [id number] ORDERING CLINICIAN: KRYSTINA BRONSON FINDINGS: AP radiograph [...] the right ventricle. 2. Interval increase in interstitial/alveola r pulmonary edema/atelectasis, superimposed infection can not be excluded. 3. Small left pleural effusion. MACRO: None Signed by: Juan Mcdaniels 10/16/2024 9:09 AM Dictation workstation: [id number] [facility] XR Chest Single viewon 10-16 1. Similar positioning of transvenous pacer with tip overlying the right ventricle. 2. Interval increase in interstitial/alveola r pulmonary edema/atelectasis, superimposed infection can not be excluded. 3. Small left pleural effusion. MACRO: None Signed by: Juan Mcdaniels 10/16/2024 9:09 AM Dictation workstation: [id number] Interpreted By: Juan Mcdaniels, STUDY: XR CHEST 1 VIEW; 10/16/2024 8:04 am INDICATION: Signs/Symptoms:TVP positioning. COMPARISON: Chest radiograph dated 10/14/2024. ACCESSION NUMBER(S): [id number] ORDERING CLINICIAN: KRYSTINA BRONSON FINDINGS: AP radiograph [...] COMPARISON: Chest radiograph dated 10/14/2024. ACCESSION NUMBER(S): [id number] ORDERING CLINICIAN: KRYSTINA BRONSON FINDINGS: AP radiograph [...] the right ventricle. 2. Interval increase in interstitial/alveola r pulmonary edema/atelectasis, superimposed infection can not be excluded. 3. Small left pleural effusion. MACRO: None Signed by: Juan Mcdaniels 10/16/2024 9:09 AM Dictation workstation: [id number] [facility] Work Phone: Radiology Study observation (narrative) [facility] Work Phone: XR Chest Single viewOrdered By: Juan Mcdaniels on 10-16-2024 [facility] Work Phone: C-reactive proteinon 024 CRP [Mass/Vol] 1.45 mg/dL High NINF - 1.00 mg/dL [facility] CBC panel Auto (Bld)on 10-15 Erythrocyte distribution width (RBC) [Ratio] 12.9 % 11.5 - 14.5 % [facility] Hematocrit (Bld) [Volume fraction] 32.3 % Low 36.0 - 46.0 % [facility] Hemoglobin (Bld) [Mass/Vol] 11 g/dL Low 12.0 - 16.0 g/dL [facility] Interpretation and review of laboratory results Abnormal [facility] MCH (RBC) [Entitic mass] 29.8 pg 26. 0 - 34.0 pg [facility] MCHC (RBC) [Mass/Vol] 34.1 g/dL 32.0 - 36.0 g/dL [facility] MCV (RBC) [Entitic vol] 88 fL 80 - 100 fL [facility] Nucleated RBC/100 WBC (Bld) [Ratio] 0 % [facility] Platelets (Bld) [#/Vol] 119 10*3/uL Low [facility] RBC (Bld) [#/Vol] 3.69 10*6/uL Low [facility] WBC (Bld) [#/Vol] 8.2 10*3/uL [facility] Erythrocyte distribution width (RBC) [Ratio] 12.9 % Normal 11.5-14.5 [facility] Comment on above: Performed By: #### 2 341-6 #### TEOFILO Flowers ([id number]) [facility] ([facility]) [address] [place] [address] 95836 Hematocrit (Bld) [Volume fraction] 32.3 % Low 36.0-46.0 [facility] Comment on above: Performed By: #### 2 341-6 #### TEOFILO Flowers ([id number]) [facility] ([facility]) [address] [place] [address] 35832 Hemoglobin (Bld) [Mass/Vol] 11.0 g/dL Low 12.0-16.0 [facility] Comment on above: Performed By: #### 2 341-6 #### TEOFILO Flowers ([id number]) [facility] ([facility]) [address] [place] [address] 18245 MCH (RBC) [Entitic mass] 29.8 pg Normal 26.0-34.0 [facility] Comment on above: Performed By: #### 2 341-6 #### TEOFILO Flowers ([id number]) [facility] ([facility]) [address] [place] [address] 16091 MCHC (RBC) [Mass/Vol] 34.1 g/dL Normal 32.0-36.0 [facility] Comment on above: Performed By: #### 2 341-6 #### TEOFILO Flowers ([id number]) [facility] ([facility]) [address] [place] [address] 40797 MCV (RBC) [Entitic vol] 88 fL Normal 80-100 [facility] Comment on above: Performed By: #### 2 341-6 #### TEOFILO Flowers ([id number]) [facility] ([facility]) [address] [place] [address] 77017 Nucleated RBC/100 WBC (Bld) [Ratio] 0.0 /100 WBCs Normal 0.0-0.0 [facility] Comment on above: Performed By: #### 2 341-6 #### TEOFILO Flowers ([id number]) [facility] ([facility]) [address] [place] [address] Platelets (Bld) [#/Vol] 119 x10*3/uL Low 150-450 [facility] Comment on above: Performed By: #### 2 341-6 #### TEOFILO Flowers ([id number]) [facility] ([facility]) [address] [place] [address] RBC (Bld) [#/Vol] 3.69 x10*6/uL Low 4.00-5.20 [facility] Comment on above: Performed By: #### 2 341-6 #### TEOFILO Flowers ([id number]) [facility] ([facility]) [address] [place] [address] WBC (Bld) [#/Vol] 8.2 x10*3/uL Normal 4.4-11.3 [facility] Comment on above: Performed By: #### 2 341-6 #### TEOFILO Flowers ([id number]) [facility] ([facility]) [address] [place] [address] CRP [Mass/Vol]on 10-15-2024 Interpretation and review of laboratory results Abnormal [facility] ECG 12-LEADon 10-15-2024 ECG 12-LEAD Ventricular Rate 115 Atrial Rate 120 QRS Duration 88 Q-T Interval 318 QTC Calculation(Bazett) 439 R Shubert 45 T Shubert -78 QRS Count 19 Q Onset 226 T Offset 385 QTC Fredericia 394 Diagnosis Atrial fibrillation with rapid ventricular response Low voltage QRS Nonspecific T wave abnormality Abnormal ECG When compared with ECG of 14-OCT-2024 23:17, Atrial fibrillation has replaced Sinus rhythm Confirmed by Lashonda Beltrán ([id number]) on 10/29/2024 8:09:14 PM Normal [facility] Magnesiumon 10-15-2024 Magnesium [Mass/Vol] 1.68 mg/dL 1.60 - 2.40 mg/dL [facility] Magnesium [Mass/Vol] 1.68 mg/dL Normal 1.60-2.40 [facility] Comment on above: Performed By: #### 2 341-6 #### TEOFILO Flowers ([id number]) [facility] ([facility]) [address] [place] [address] Magnesium [Mass/Vol]on 10-15 Interpretation and review of laboratory results Normal [facility] No Panel Informationon 10-15 [facility] Renal function 2000 panelon 10-15-2024 Albumin BCP dye [Mass/Vol] 3.7 g/dL 3.4 - 5.0 g/dL [facility] Anion gap [Moles/Vol] 13 mmol/L 10 - 2 0 mmol/L [facility] Calcium [Mass/Vol] 8.5 mg/dL Low 8.6 - 10. 6 mg/dL [facility] Chloride [Moles/Vol] 106 mmol/L 98 - 10 7 mmol/L [facility] CO2 [Moles/Vol] 22 mmol/L 21 - 32 mmol/L [facility] Creatinine [Mass/Vol] 0.7 mg/dL 0.50 - 1.05 mg/dL [facility] eGFR - PINF [facility] Comment on above: Calculations of denia mated GFR are performed using the 2020 CKD-EPI Study Refit equation without the race variable for the IDMS-Traceable creatinine methods. https://jasn.asnjournals.org/content//ASN.890 2069897 Glucose [Mass/Vol] 129 mg/dL High 74 - 99 mg/dL [facility] Interpretation and review of laboratory results Abnormal [facility] Phosphate [Mass/Vol] 1.9 mg/dL Low 2.5 - 4 .9 mg/dL [facility] Comment on above: MILD HEMOLYSIS DETEC [...] [Moles/Vol] 4 mmol/L 3.5 - 5.3 mmol/L [facility] Comment on above: MILD HEMOLYSIS DETEC ROLANDA. The result may be falsely elevated due to hemolysis or other interferents. Clinical correlation is recommended. Repeat testing may be considered. Sodium [Moles/Vol] 137 mmol/L 136 - 145 mmol/L [facility] Urea nitrogen [Mass/Vol] 16 mg/dL 6 - 23 mg/d L [facility] Albumin BCP dye [Mass/Vol] 3.7 g/dL Normal 3.4-5.0 [facility] Comment on above: Performed By: #### 2 341-6 #### TEOFILO Flowers ([id number]) [facility] ([facility]) [address] [place] [address] 55926 Anion gap [Moles/Vol] 13 mmol/L Normal 10-20 [facility] Comment on above: Performed By: #### 2 341-6 #### TEOFILO GUTHRIE L ([id number]) [facility] ([facility]) [address] [place] [address] 48096 Calcium [Mass/Vol] 8.5 mg/dL Low 8.6-10.6 [facility] Comment on above: Performed By: #### 2 341-6 #### TEOFILO GUTHRIE L ([id number]) [facility] ([facility]) [address] [place] [address] Chloride [Moles/Vol] 106 mmol/L Normal 98-107 [facility] Comment on above: Performed By: #### 2 341-6 #### TEOFILO VILLALOBOSMOTZER L ([id number]) [facility] ([facility]) [address] [place] [address] CO2 [Moles/Vol] 22 mmol/L Normal 21-32 [facility] Comment on above: Performed By: #### 2 341-6 #### TEOFILO VILLALOBOSMOTZER L ([id number]) [facility] ([facility]) [address] [place] [address] Creatinine [Mass/Vol] 0.70 mg/dL Normal 0.50-1.05 [facility] Comment on above: Performed By: #### 2 341-6 #### TEOFILO Flowers ([id number]) [facility] ([facility]) [address] [place] [address] 66150 GFR/1.73 sq M.predicted MDRD (S/P/Bld) [Vol rate/Area] mL/min/{1.73_m2} Normal >60 [facility] Comment on above: Result Comment: Calc ulations of estimated GFR are performed using the 2020 CKD-EPI Study Refit equation without the race variable for the IDMS-Traceable creatinine methods. https://jasn.asnjournals.org/content/early/ASN.651 8844785 Performed By: #### 2 341-6 #### TEOFILO Flowers ([id number]) [facility] ([facility]) [address] [place] [address] 89445 Glucose [Mass/Vol] 129 mg/dL High 74-99 [facility] Comment on above: Performed By: #### 2 341-6 #### TEOFILO Flowers ([id number]) [facility] ([facility]) [address] [place] [address] 83772 Phosphate [Mass/Vol] 1.9 mg/dL Low 2.5-4.9 [facility] Comment on above: Result Comment: MILD [...] By: #### 2 341-6 #### TEOFILO Flowers ([id number]) [facility] ([facility]) [address] [place] [address] 00493 Potassium [Moles/Vol] 4.0 mmol/L Normal 3.5-5.3 [facility] Comment on above: Result Comment: MILD HEMOLYSIS DETECTED. The result may be falsely elevated due to hemolysis or other interferents. Clinical correlation is recommended. Repeat testing may be considered. Performed By: #### 2 341-6 #### TEOFILO Flowers ([id number]) [facility] ([facility]) [address] [place] [address] 20511 Sodium [Moles/Vol] 137 mmol/L Normal 136-145 [facility] Comment on above: Performed By: #### 2 341-6 #### TEOFILO GUTHRIE L ([id number]) [facility] ([facility]) [address] [place] [address] 38443 Urea nitrogen [Mass/Vol] 16 mg/dL Normal 6-23 [facility] Comment on above: Performed By: #### 2 341-6 #### TEOFILO Flowers ([id number]) [facility] ([facility]) [address] [place] [address] 04292 TRANSTHORACIC ECHO (TTE) [facility] 10-15-2024 TRANSTHORACIC ECHO (TTE) [facility], [address] [place] [address] 33465 and TRANSTHORACIC ECHOCARDIOGRAM REPORT Patient Name: RADHA THOMAS Reading Physician: [id number] Colton Valle MD Study Date: 10/15/2024 Ordering Provider: [id number] KRYSTINA BRONSON MRN/PID: [id number] Fellow: Nurse: Date of /Age: 8 1955 / 69 years Recovery Unit Operator: Gender assigned at F Additional Staff: : Height: Admit Date: 10/13/2024 Weight: Admission Status: Inpatient - Routine BSA / BMI: m2 / kg/m2 Study Type: TRANSTHORACIC ECHO (TTE) LIMITED Diagnosis/ICD: Longstanding persistent AFib-I48.11 CPT Code: Echo Limited-31301; Doppler Limited-43564; Color Doppler-77368 Study Detail: The following Echo studies were [...] inspiratory collapse less than 50%. 7. Limited manager location fellow echo. RECOMMENDATIONS: Utilizing an FDA cleared automated machine learning algorithm (EchoGo Heart Failure by [employer]), the analysis of the apical 4-chamber echocardiogram [...] Pressure: 8 mmHg IVC Diam: 2.20 cm [id number] Colton Valle MD Electronically signed on 10/16/2024 at 3:47:28 PM Final Normal [facility] Tropinin I.cardiac panel Hig h sensitivity methodon 10-15-2024 Interpretation and review of laboratory results Abnormal [facility] Less than 99th percentile of normal [...] performed using a different testing methodology at [facility] than at [facility]. Direct result comparisons should only be made within the same method. [facility] Interpretation and review of laboratory results Abnormal [facility] Less than 99th percentile of normal [...] performed using a different testing methodology at [facility] than at [facility]. Direct result comparisons should only be made within the same method. [facility] Troponin I, High Sensitivity on 10-15-2024 Tropinin I.cardiac panel High sensitivity method 531 ng/L Critically high 0 - 34 ng/L [facility] Comment on above: Previous result veri fied on 10/15/2024 030 on specimen/case [id number] called with component [facility] for procedure Troponin I, High Sensitivity with value 676 ng/L. Tropinin I.cardiac panel High sensitivity method 676 ng/L Critically high 0 - 34 ng/L [facility] Troponin I.cardiac panelon 1 12-16-2023 Tropinin I.cardiac panel High sensitivity method 531 ng/L Critically high 0-34 [facility] Comment on above: Order Comment: [...] is performed using a differenttesting methodology at [facility] than at [facility]. Direct result comparisons should onlybe made within the same method. Result Comment: Prev ious result verified on 10/15/2024303 on specimen/case [id number] called with component [facility] for procedure Troponin I, High Sensitivity with value 676 ng/L. Performed By: #### 2 341-6 #### TEOFILO Flowers ([id number]) [facility] ([facility]) [address] [place] [address] C reactive proteinon 024 CRP [Mass/Vol] 1.45 mg/dL High <1.00 [facility] Comment on above: Performed By: #### 2 341-6 #### TEOFILO Flowers ([id number]) [facility] ([facility]) [address] [place] [address] CBC panel Auto (Bld)on 10-14 Erythrocyte distribution width (RBC) [Ratio] 12.9 % Normal 11.5-14.5 [facility] Comment on above: Performed By: #### 2 341-6 #### TEOFILO Flowers ([id number]) [facility] ([facility]) [address] [place], [place] [address] Hematocrit (Bld) [Volume fraction] 32.8 % Low 36.0-46.0 [facility] Comment on above: Performed By: #### 2 341-6 #### TEOFILO Flowers ([id number]) [facility] ([facility]) [address] [place], [place] [address] Hemoglobin (Bld) [Mass/Vol] 10.8 g/dL Low 12.0-16.0 [facility] Comment on above: Performed By: #### 2 341-6 #### TEOFILO Flowers ([id number]) [facility] [facility] ([facility]) [address] [place] [address] 96755 Interpretation and review of laboratory results Abnormal [facility] MCH (RBC) [Entitic mass] 29.9 pg Normal 26.0-34.0 [facility] Comment on above: Performed By: #### 2 341-6 #### TEOFILO Flowers ([id number]) [facility] ([facility]) [address] [place] [address] 13980 MCHC (RBC) [Mass/Vol] 32.9 g/dL Normal 32.0-36.0 [facility] Comment on above: Performed By: #### 2 341-6 #### TEOFILO Flowers ([id number]) [facility] ([facility]) [address] [place] [address] 05165 MCV (RBC) [Entitic vol] 91 fL Normal 80-100 [facility] Comment on above: Performed By: #### 2 341-6 #### TEOFILO Flowers ([id number]) [facility] ([facility]) [address] [place] [address] 21667 Nucleated RBC/100 WBC (Bld) [Ratio] 0 % [facility] Platelets (Bld) [#/Vol] 115 10*3/uL Low [facility] RBC (Bld) [#/Vol] 3.61 10*6/uL Low [facility] WBC (Bld) [#/Vol] 7.3 10*3/uL [facility] Nucleated RBC/100 WBC (Bld) [Ratio] 0.0 /100 WBCs Normal 0.0-0.0 [facility] Comment on above: Performed By: #### 2 341-6 #### TEOFILO Flowers ([id number]) [facility] ([facility]) [address] [place] [address] Platelets (Bld) [#/Vol] 115 x10*3/uL Low 150-450 [facility] Comment on above: Performed By: #### 2 341-6 #### TEOFILO Flowers ([id number]) [facility] ([facility]) [address] [place] [address] 80434 RBC (Bld) [#/Vol] 3.61 x10*6/uL Low 4.00-5.20 [facility] Comment on above: Performed By: #### 2 341-6 #### TEOFILO Flowers ([id number]) [facility] ([facility]) [address] [place] [address] 87464 WBC (Bld) [#/Vol] 7.3 x10*3/uL Normal 4.4-11.3 [facility] Comment on above: Performed By: #### 2 341-6 #### TEOFILO Flowers ([id number]) [facility] ([facility]) [address] [place] [address] 48079 ECG 12-LEADon 10-14-2024 ECG 12-LEAD Ventricular Rate 79 Atrial Rate 79 P-R Interval 234 QRS Duration 90 Q-T Interval 354 QTC Calculation(Bazett) 405 P Shubert 77 R Shubert 28 T Shubert 177 QRS Count 13 Q Onset 224 [...] Beltrán ([id number]) on 10/29/2024 8:05:03 PM Normal [facility] ECG 12-LEAD Ventricular Rate 64 Atrial Rate 64 P-R Interval 224 QRS Duration 96 Q-T Interval 430 QTC Calculation(Bazett) 443 P Shubert 70 R Shubert 36 T Shubert 190 QRS Count 11 Q Onset 222 [...] Beltrán (1205) on 10/29/2024 8:03:08 PM Normal [facility] ECG 12-LEAD Ventricular Rate 60 Atrial Rate 54 QRS Duration 168 Q-T Interval 554 QTC Calculation(Bazett) 554 R Shubert -41 T Shubert 110 QRS Count 10 Q Onset 182 T Offset 459 QTC Fredericia 554 Diagnosis Ventricular-paced rhythm Abnormal ECG When compared with ECG of 13-OCT-2024 18:23, No significant change was found Confirmed by Lashonda Beltrán ([id number]) on 10/29/2024 8:02:48 PM Normal [facility] Laboratory - Chemistry and C hemistry - challengeon 10-14-2024 Magnesium [Mass/Vol] 1.77 mg/dL Normal 1.60-2.40 [facility] Comment on above: Performed By: #### 1 9123-9 #### TEOFILO Flowers ([id number]) [facility] ([facility]) [address] [place] [address] 37850 Magnesium [Mass/Vol]on 10-14 Interpretation and review of laboratory results Normal [facility] No Panel Informationon 10-14 [facility] Renal function 2000 panelon 10-14-2024 Albumin BCP dye [Mass/Vol] 3.7 g/dL Normal 3.4-5.0 [facility] Comment on above: Performed By: #### 2 4362-6 #### TEOFILO OWENSER L ([id number]) [facility] ([facility]) [address] [place] [address] Anion gap [Moles/Vol] 11 mmol/L Normal 10-20 [facility] Comment on above: Performed By: #### 2 4362-6 #### TEOFILO GUTHRIE L ([id number]) [facility] ([facility]) [address] [place] [address] 54818 Calcium [Mass/Vol] 8.6 mg/dL Normal 8.6-10.6 [facility] Comment on above: Performed By: #### 2 4362-6 #### TEOFILO GUTHRIE L ([id number]) [facility] ([facility]) [address] [place] [address] 93771 Chloride [Moles/Vol] 104 mmol/L Normal 98-107 [facility] Comment on above: Performed By: #### 2 4362-6 #### TEOFILO GUTHRIE L ([id number]) [facility] ([facility]) [address] [place] [address] 34325 CO2 [Moles/Vol] 23 mmol/L Normal 21-32 [facility] Comment on above: Performed By: #### 2 4362-6 #### TEOFILO GUTHRIE L ([id number]) [facility] ([facility]) [address] [place] [address] 42388 Creatinine [Mass/Vol] 0.8 mg/dL 0.50 - 1.05 mg/dL [facility] GFR/1.73 sq M.predicted among non-blacks MDRD (S/P/Bld) [Vol rate/Area] 80 mL/min/{1.73_m2} - PINF [facility] Comment on above: Calculations of denia mated GFR are performed using the 2020 CKD-EPI Study Refit equation without the race variable for the IDMS-Traceable creatinine methods. https://jasn.asnjournals.org/content//ASN.969 0206985 Glucose [Mass/Vol] 130 mg/dL High 74-99 [facility] Comment on above: Performed By: #### 2 4362-6 #### TEOFILO Flowers ([id number]) [facility] ([facility]) [address] [place] [address] 89831 Interpretation and review of laboratory results Abnormal [facility] Phosphate [Mass/Vol] 3.9 mg/dL Normal 2.5-4.9 [facility] Comment on above: The performance marc acteristics [...] By: #### 2 4362-6 #### TEOFILO Flowers ([id number]) [facility] ([facility]) [address] [place] [address] 04728 Potassium [Moles/Vol] 4.2 mmol/L Normal 3.5-5.3 [facility] Comment on above: Performed By: #### 2 4362-6 #### TEOFILO Flowers ([id number]) [facility] ([facility]) [address] [place] [address] 38718 Sodium [Moles/Vol] 134 mmol/L Low 136-145 [facility] Comment on above: Performed By: #### 2 4362-6 #### TEOFILO Flowers ([id number]) [facility] ([facility]) [address] [place] [address] 36408 Urea nitrogen [Mass/Vol] 15 mg/dL Normal 6-23 [facility] Comment on above: Performed By: #### 2 4362-6 #### TEOFILO Flowers ([id number]) [facility] ([facility]) [address] [place] [address] 06447 Creatinine [Mass/Vol] 0.80 mg/dL Normal 0.50-1.05 [facility] Comment on above: Performed By: #### 2 4362-6 #### TEOFILO Flowers ([id number]) [facility] ([facility]) [address] [place] [address] Glomerular filtration rate/1.73 sq M.predicted 80 mL/min/1.73m*2 Normal >60 [facility] Comment on above: Result Comment: Calc ulations of estimated GFR are performed using the 2020 CKD-EPI Study Refit equation without the race variable for the IDMS-Traceable creatinine methods. https://jasn.asnjournals.org/content/early//ASN.893 1821261 Performed By: #### 2 4362-6 #### TEOFILO Flowers ([id number]) [facility] ([facility]) [address] [place] [address] Troponin I.cardiac panelon 1 12-15-2023 Tropinin I.cardiac panel High sensitivity method 676 ng/L Critically high 0-34 [facility] Comment on above: Order Comment: [...] is performed using a differenttesting methodology at [facility] than at [facility]. Direct result comparisons should onlybe made within the same method. Performed By: #### 2 341-6 #### TEOFILO Flowers ([id number]) [facility] ([facility]) [address] [place] [address] XR CHEST 1 VIEWon 10-14-2024 XR CHEST 1 VIEW Interpreted By: Aaron Pro and Ogievich Taessa STUDY: XR CHEST 1 VIEW; 10/14/2024 8:18 am INDICATION: Signs/Symptoms:TVP. COMPARISON: None. ACCESSION NUMBER(S): [id number] ORDERING CLINICIAN: REINA MONET FINDINGS: AP radiograph [...] DO, PGY-3. This study was interpreted at [facility], [place], [place]. MACRO: None Signed by: Aaron Ramirez 10/14/2024 1:31 PM Dictation workstation: [id number] Normal [facility] XR Chest Single viewon 10-14 1. Temporary transvenous pacer with tip overlying the right ventricle. 2. No evidence of acute cardiopulmonary process. I personally reviewed the images/study and I agree with the findings as stated by Trevor Horton DO, PGY-3. This study was interpreted at [facility], [place], [place]. MACRO: None Signed by: Aaron Ramirez 10/14/2024 1:31 PM Dictation workstation: [id number] Interpreted By: Aaron Pro and Ogievich Taessa STUDY: XR CHEST 1 VIEW; 10/14/2024 8:18 am INDICATION: Signs/Symptoms:TVP. COMPARISON: None. ACCESSION NUMBER(S): [id number] ORDERING CLINICIAN: REINA MONET FINDINGS: AP radiograph of the chest was provided. LINES/TUBES/DEVICES: Temporary transvenous pacer with tip overlying the right ventricle. CARDIOMEDIASTINAL SILHOUETTE: Cardiomediastinal silhouette is normal in size and configuration. LUNGS: No focal consolidation, pleural effusion, or pneumothorax. ABDOMEN: No remarkable upper abdominal findings. BONES: No acute osseous changes. [facility] MMODAL Aaron Pro MD - 10/14/2024 Interpreted By: Aaron Pro, and Clifford Murray STUDY: XR CHEST 1 VIEW; 10/14/2024 8:18 am INDICATION: Signs/Symptoms:TVP. COMPARISON: None. ACCESSION NUMBER(S): [id number] ORDERING CLINICIAN: REINA MONET FINDINGS: AP radiograph [...] DO, PGY-3. This study was interpreted at [place], [place]. MACRO: None Signed by: Aaron Ramirez 10/14/2024 1:31 PM Dictation workstation: [id number] [facility] Work Phone: Radiology Study observation (narrative) [facility] Work Phone: XR Chest Single viewOrdered By: Aaron Ramirez on 10-14-2024 [facility] Work Phone: Basic metabolic 2000 panelon 10-13-2024 Anion gap [Moles/Vol] 13 mmol/L 10 - 2 0 mmol/L [facility] Calcium [Mass/Vol] 8.7 mg/dL 8.6 - 10. 6 mg/dL [facility] Chloride [Moles/Vol] 109 mmol/L High 98 - 10 7 mmol/L [facility] CO2 [Moles/Vol] 21 mmol/L 21 - 32 mmol/L [facility] Creatinine [Mass/Vol] 0.71 mg/dL 0.50 - 1.05 mg/dL [facility] eGFR - PINF [facility] Comment on above: Calculations of denia mated GFR are performed using the 2020 CKD-EPI Study Refit equation without the race variable for the IDMS-Traceable creatinine methods. https://jasn.asnjournals.org/content//ASN.843 1518554 Glucose [Mass/Vol] 135 mg/dL High 74 - 99 mg/dL [facility] Interpretation and review of laboratory results Abnormal [facility] Potassium [Moles/Vol] 4.1 mmol/L 3.5 - 5.3 mmol/L [facility] Sodium [Moles/Vol] 139 mmol/L 136 - 145 mmol/L [facility] Urea nitrogen [Mass/Vol] 15 mg/dL 6 - 23 mg/d L [facility] Anion gap [Moles/Vol] 13 mmol/L Normal 10-20 [facility] Comment on above: Performed By: #### 2 4321-2 #### TEOFILO Flowers ([id number]) [facility] ([facility]) [address] [place] [address] 37528 Calcium [Mass/Vol] 8.7 mg/dL Normal 8.6-10.6 [facility] Comment on above: Performed By: #### 2 4321-2 #### TEOFILO Flowers ([id number]) [facility] ([facility]) [address] [place] [address] Chloride [Moles/Vol] 109 mmol/L High 98-107 [facility] Comment on above: Performed By: #### 2 4321-2 #### TEOFILO Flowers ([id number]) [facility] ([facility]) [address] [place] [address] 06621 CO2 [Moles/Vol] 21 mmol/L Normal 21-32 [facility] Comment on above: Performed By: #### 2 4321-2 #### TEOFILO Flowers ([id number]) [facility] ([facility]) [address] [place] [address] Creatinine [Mass/Vol] 0.71 mg/dL Normal 0.50-1.05 [facility] Comment on above: Performed By: #### 2 4321-2 #### TEOFILO Flowers ([id number]) [facility] ([facility]) [address] [place] [address] 24255 GFR/1.73 sq M.predicted MDRD (S/P/Bld) [Vol rate/Area] mL/min/{1.73_m2} Normal >60 [facility] Comment on above: Result Comment: Calc ulations of estimated GFR are performed using the 2020 CKD-EPI Study Refit equation without the race variable for the IDMS-Traceable creatinine methods. https://jasn.asnjournals.org/content//ASN.650 6342728 Performed By: #### 2 4321-2 #### TEOFILO Flowers ([id number]) [facility] ([facility]) [address] [place] [address] 77264 Glucose [Mass/Vol] 135 mg/dL High 74-99 [facility] Comment on above: Performed By: #### 2 4321-2 #### TEOFILO Flowers ([id number]) [facility] ([facility]) [address] [place] [address] 33961 Potassium [Moles/Vol] 4.1 mmol/L Normal 3.5-5.3 [facility] Comment on above: Performed By: #### 2 4321-2 #### TEOFILO Flowers ([id number]) [facility] ([facility]) [address] [place] [address] Sodium [Moles/Vol] 139 mmol/L Normal 136-145 [facility] Comment on above: Performed By: #### 2 4321-2 #### TEOFILO Flowers ([id number]) [facility] ([facility]) [address] [place] [address] Urea nitrogen [Mass/Vol] 15 mg/dL Normal 6-23 [facility] Comment on above: Performed By: #### 2 4321-2 #### TEOFILO Flowers ([id number]) [facility] ([facility]) [address] [place] [address] CBC W Auto Differential pane l (Bld)on 10-13-2024 Basophils (Bld) [#/Vol] 0.07 10*3/uL [facility] Basophils/100 WBC (Bld) 0.6 % 0.0 - 2.0 % [facility] Eosinophils (Bld) [#/Vol] 0.16 10*3/uL [facility] Eosinophils/100 WBC (Bld) 1.5 % 0.0 - 6.0 % [facility] Erythrocyte distribution width (RBC) [Ratio] 12.8 % 11.5 - 14.5 % [facility] Hematocrit (Bld) [Volume fraction] 35.7 % Low 36.0 - 46.0 % [facility] Hemoglobin (Bld) [Mass/Vol] 11.9 g/dL Low 12.0 - 16.0 g/dL [facility] Immature granulocytes (Bld) [#/Vol] 0.15 10*3/uL [facility] Immature granulocytes/100 WBC (Bld) 1.4 % High 0.0 - 0.9 % [facility] Comment on above: Immature Granulocyte Count (IG) includes promyelocytes, myelocytes and metamyelocytes but does not include bands. Percent differential counts (%) should be interpreted in the context of the absolute cell counts (cells/UL). Interpretation and review of laboratory results Abnormal [facility] Lymphocytes (Bld) [#/Vol] 1.43 10*3/uL [facility] Lymphocytes/100 WBC (Bld) 13.2 % 13.0 - 44.0 % [facility] MCH (RBC) [Entitic mass] 30 pg 26. 0 - 34.0 pg [facility] MCHC (RBC) [Mass/Vol] 33.3 g/dL 32.0 - 36.0 g/dL [facility] MCV (RBC) [Entitic vol] 90 fL 80 - 100 fL [facility] Monocytes (Bld) [#/Vol] 0.61 10*3/uL [facility] Monocytes/100 WBC (Bld) 5.6 % 2.0 - 10.0 % [facility] Neutrophils (Bld) [#/Vol] 8.45 10*3/uL High [facility] Comment on above: Percent differential counts (%) should be interpreted in the context of the absolute cell counts (cells/uL). Neutrophils/100 WBC (Bld) 77.7 % 40.0 - 80.0 % [facility] Nucleated RBC/100 WBC (Bld) [Ratio] 0 % [facility] Platelets (Bld) [#/Vol] 146 10*3/uL Low [facility] RBC (Bld) [#/Vol] 3.97 10*6/uL [facility] WBC (Bld) [#/Vol] 10.9 10*3/uL [facility] Basophils (Bld) [#/Vol] 0.07 x10*3/uL Normal 0.00-0.10 [facility] Comment on above: Performed By: #### 5 7021-8 #### TEOFILO Flowers ([id number]) [facility] ([facility]) [address] [place] [address] 57679 Basophils/100 WBC (Bld) 0.6 % Normal 0.0-2.0 [facility] Comment on above: Performed By: #### 5 7021-8 #### TEOFILO Flowers ([id number]) [facility] ([facility]) [address] [place] [address] 55109 Eosinophils (Bld) [#/Vol] 0.16 x10*3/uL Normal 0.00-0.70 [facility] Comment on above: Performed By: #### 5 7021-8 #### TEOFILO Flowers ([id number]) [facility] ([facility]) [address] [place] [address] Eosinophils/100 WBC (Bld) 1.5 % Normal 0.0-6.0 [facility] Comment on above: Performed By: #### 5 7021-8 #### TEOFILO Flowers ([id number]) [facility] ([facility]) [address] [place] [address] 92800 Erythrocyte distribution width (RBC) [Ratio] 12.8 % Normal 11.5-14.5 [facility] Comment on above: Performed By: #### 5 7021-8 #### TEOFILO GUTHRIE L ([id number]) [facility] ([facility]) [address] [place] [address] 31993 Hematocrit (Bld) [Volume fraction] 35.7 % Low 36.0-46.0 [facility] Comment on above: Performed By: #### 5 7021-8 #### TEOFILO Flowers ([id number]) [facility] ([facility]) [address] [place] [address] 59700 Hemoglobin (Bld) [Mass/Vol] 11.9 g/dL Low 12.0-16.0 [facility] Comment on above: Performed By: #### 5 7021-8 #### TEOFILO GUTHRIE L ([id number]) [facility] ([facility]) [address] [place] [address] 81869 Immature granulocytes (Bld) [#/Vol] 0.15 x10*3/uL Normal 0.00-0.70 [facility] Comment on above: Performed By: #### 5 7021-8 #### TEOFILO GUTHRIE L ([id number]) [facility] ([facility]) [address] [place] [address] 71860 Immature granulocytes/100 WBC (Bld) 1.4 % High 0.0-0.9 [facility] Comment on above: Result Comment: Raquel ture Granulocyte Count (IG) includes promyelocytes, myelocytes and metamyelocytes but does not include bands. Percent differential counts (%) should be interpreted in the context of the absolute cell counts (cells/UL). Performed By: #### 5 7021-8 #### TEOFILO HASTINGSTZHORACE L ([id number]) [facility] ([facility]) [address] [place] [address] Lymphocytes (Bld) [#/Vol] 1.43 x10*3/uL Normal 1.20-4.80 [facility] Comment on above: Performed By: #### 5 7021-8 #### TEOFILO Flowers ([id number]) [facility] ([facility]) [address] [place] [address] 24724 Lymphocytes/100 WBC (Bld) 13.2 % Normal 13.0-44.0 [facility] Comment on above: Performed By: #### 5 7021-8 #### TEOFILO Flowers ([id number]) [facility] ([facility]) [address] [place] [address] 57733 MCH (RBC) [Entitic mass] 30.0 pg Normal 26.0-34.0 [facility] Comment on above: Performed By: #### 5 7021-8 #### TEOFILO Flowers ([id number]) [facility] ([facility]) [address] [place] [address] 61025 MCHC (RBC) [Mass/Vol] 33.3 g/dL Normal 32.0-36.0 [facility] Comment on above: Performed By: #### 5 7021-8 #### TEOFILO Flowers ([id number]) [facility] ([facility]) [address] [place] [address] 74934 MCV (RBC) [Entitic vol] 90 fL Normal 80-100 [facility] Comment on above: Performed By: #### 5 7021-8 #### TEOFILO Flowers ([id number]) [facility] ([facility]) [address] [place] [address] 65793 Monocytes (Bld) [#/Vol] 0.61 x10*3/uL Normal 0.10-1.00 [facility] Comment on above: Performed By: #### 5 7021-8 #### TEOFILO Flowers ([id number]) [facility] ([facility]) [id number] [place] [address] 97313 Monocytes/100 WBC (Bld) 5.6 % Normal 2.0-10.0 [facility] Comment on above: Performed By: #### 5 7021-8 #### TEOFILO Flowers ([id number]) [facility] ([facility]) [address] [place] [address] 09449 Neutrophils (Bld) [#/Vol] 8.45 x10*3/uL High 1.20-7.70 [facility] Comment on above: Result Comment: Perc ent differential counts (%) should be interpreted in the context of the absolute cell counts (cells/uL). Performed By: #### 5 7021-8 #### TEOFILO Flowers ([id number]) [facility] ([facility]) [address] [place] [address] 69779 Neutrophils/100 WBC (Bld) 77.7 % Normal 40.0-80.0 [facility] Comment on above: Performed By: #### 5 7021-8 #### TEOFILO Flowers ([id number]) [facility] ([facility]) [address] [place] [address] 18592 Nucleated RBC/100 WBC (Bld) [Ratio] 0.0 /100 WBCs Normal 0.0-0.0 [facility] Comment on above: Performed By: #### 5 7021-8 #### TEOFILO Flowers ([id number]) [facility] ([facility]) [address] [place] [address] 56849 Platelets (Bld) [#/Vol] 146 x10*3/uL Low 150-450 [facility] Comment on above: Performed By: #### 5 7021-8 #### TEOFILO Flowers ([id number]) [facility] ([facility]) [address] [place] [address] 46309 RBC (Bld) [#/Vol] 3.97 x10*6/uL Low 4.00-5.20 [facility] Comment on above: Performed By: #### 5 7021-8 #### TEOFILO Flowers ([id number]) [facility] ([facility]) [id number] [place] [address] WBC (Bld) [#/Vol] 10.9 x10*3/uL Normal 4.4-11.3 [facility] Comment on above: Performed By: #### 5 7021-8 #### TEOFILO Flowers ([id number]) [facility] ([facility]) [id number] [place] [address] ECG 12-LEADon 10-13-2024 ECG 12-LEAD Ventricular Rate 60 Atrial Rate 59 QRS Duration 168 Q-T Interval 574 QTC Calculation(Bazett) 574 R Shubert -67 T Shubert 105 QRS Count 9 Q Onset 179 T Offset 466 QTC Fredericia 574 Diagnosis Ventricular-paced rhythm Abnormal ECG When compared with ECG of 13-SEP-2024 12:54, Electronic ventricular pacemaker has replaced Atrial fibrillation Confirmed by Lashonda Beltrán ([id number]) on 10/27/2024 10:44:31 PM Normal [facility] Glucose Test strip manual (B ld) [Mass/Vol]on 10-13-2024 Glucose [Mass/Vol] 97 mg/dL 74 - 99 mg/dL [facility] Interpretation and review of laboratory results Normal [facility] Glucose [Mass/Vol] 97 mg/dL Normal 74-99 [facility] Comment on above: Performed By: #### 2 341-6 #### TEOFILO Flowers ([id number]) [facility] ([facility]) [address] [place] [address] Hepatic function 2000 panelo n 10-13-2024 Albumin BCP dye [Mass/Vol] 3.7 g/dL 3.4 - 5.0 g/dL [facility] ALP [Catalytic activity/Vol] 62 U/L 33 - 136 U/L [facility] ALT With P-5'-P [Catalytic activity/Vol] 17 U/L 7 - 45 U/L [facility] Comment on above: Patients treated wit h Sulfasalazine may generate falsely decreased results for ALT. AST With P-5'-P [Catalytic activity/Vol] 23 U/L 9 - 39 U/L [facility] Bilirubin [Mass/Vol] 1 mg/dL 0.0 - 1 .2 mg/dL [facility] Bilirubin.direct [Mass/Vol] 0.2 mg/dL 0.0 - 0.3 mg/dL [facility] Interpretation and review of laboratory results Normal [facility] Protein [Mass/Vol] 6.4 g/dL 6.4 - 8.2 g/dL [facility] Albumin BCP dye [Mass/Vol] 3.7 g/dL Normal 3.4-5.0 [facility] Comment on above: Performed By: #### 2 4325-3 #### TEOFILO Flowers ([id number]) [facility] ([facility]) [address] [place] [address] ALP [Catalytic activity/Vol] 62 U/L Normal 33-136 [facility] Comment on above: Performed By: #### 2 4325-3 #### TEOFILO Flowers ([id number]) [facility] ([facility]) [address] [place] [address] ALT With P-5'-P [Catalytic activity/Vol] 17 U/L Normal 7-45 [facility] Comment on above: Result Comment: Lynette ents treated with Sulfasalazine may generate falsely decreased results for ALT. Performed By: #### 2 4325-3 #### TEOFILO Flowers ([id number]) [facility] ([facility]) [address] [place] [address] AST With P-5'-P [Catalytic activity/Vol] 23 U/L Normal 9-39 [facility] Comment on above: Performed By: #### 2 4325-3 #### TEOFILO Flowers ([id number]) [facility] ([facility]) [address] [place] [address] Bilirubin [Mass/Vol] 1.0 mg/dL Normal 0.0-1.2 [facility] Comment on above: Performed By: #### 2 4325-3 #### TEOFILO Flowers ([id number]) [facility] ([facility]) [address] [place] [address] Bilirubin.direct [Mass/Vol] 0.2 mg/dL Normal 0.0-0.3 [facility] Comment on above: Performed By: #### 2 4325-3 #### TEOFILO Flowers ([id number]) [facility] ([facility]) [address] [place] [address] Protein [Mass/Vol] 6.4 g/dL Normal 6.4-8.2 [facility] Comment on above: Performed By: #### 2 4325-3 #### TEOFILO Flowers ([id number]) [facility] ([facility]) [address] [place] [address] Magnesiumon 10-13-2024 Magnesium [Mass/Vol] 1.87 mg/dL 1.60 - 2.40 mg/dL [facility] Magnesium [Mass/Vol] 1.87 mg/dL Normal 1.60-2.40 [facility] Comment on above: Performed By: #### 1 9123-9 #### TEOFILO Flowers ([id number]) [facility] ([facility]) [address] [place] [address] No Panel Informationon 10-13 Images from the original result were not included. Atrial Fibrillation ablation Procedures Atrial Fibrillation ablation (34885), LA Pacing and recording (62846), 3D Mapping (43499), Intracardiac Echocardiogram (74797), Transseptal Catheterization (26399), Ultrasound Guided vascular access (78048), Insert temporary transvenous pacing electrode (32195) Patient history: Please refer to the detailed history and physical on the patient's medical chart. Procedure narrative: The procedure was performed under general anesthesia (administered and monitored by sales contracts analyst and [employer]). Anesthesia sedated and intubated the patient without [...] venous access a Decapolar CS catheter by Respiratory Technologiester was introduced and placed into the distal [...] was removed. 3. The RF ablation catheter BiosTelematik ST/SF was then introduced via the sheath into the left atrium. Ablation: 1. During ablation esophageal temperature monitoring was utilized throughout the procedure. 2. RF was delivered at a power of 25-30W with adequate lesions by Visitag Surpoint (Respiratory Technologiester) criteria. Visitags were used to identify the [...] internal jugular under ultrasound guidance. A 6 Malay peel-away sheath was then placed. A pacing [...] procedural log and parameters. SYNGO_SECTRA_ CARDIOLAB_XPE R [facility] Work Phone: Interpretation and review of laboratory results Normal [facility] PT and aPTT panel Coag (PPP) Ordered By: Mago Humphreys on 10-13-2024 aPTT Coag (PPP) [Time] 133 s Critically high [facility] INR Coag (PPP) [Relative time] 1.1 {INR} 0.9 - 1.1 [facility] Interpretation and review of laboratory results Abnormal [facility] PT Coag (PPP) [Time] 12.6 s [facility] The APTT is no longer used for monitoring Unfractionated Heparin Therapy. For monitoring Heparin Therapy, use the Heparin Assay. [facility] PT and aPTT panel Coag (PPP) on 10-13-2024 aPTT Coag (PPP) [Time] 133 s Critically high 27-38 [facility] Comment on above: Order Comment: The A PTT is no longer used for monitoring Unfractionated Heparin Therapy. For monitoring Heparin Therapy, use the Heparin Assay. Performed By: #### 3 4529-8 #### TEOFILO Flowers ([id number]) [facility] ([facility]) [address] [place] [address] INR Coag (PPP) [Relative time] 1.1 Normal 0.9-1.1 [facility] Comment on above: Order Comment: The A PTT is no longer used for monitoring Unfractionated Heparin Therapy. For monitoring Heparin Therapy, use the Heparin Assay. Performed By: #### 3 4529-8 #### TEOFILO Flowers ([id number]) [facility] ([facility]) [address] [place] [address] PT Coag (PPP) [Time] 12.6 s Normal 9.8-12.8 [facility] Comment on above: Order Comment: The A PTT is no longer used for monitoring Unfractionated Heparin Therapy. For monitoring Heparin Therapy, use the Heparin Assay. Performed By: #### 3 4529-8 #### TEOFILO Flowers ([id number]) [facility] ([facility]) [address] [place] [address] Phosphateon 10-13-2024 Phosphate [Mass/Vol] 3.5 mg/dL Normal 2.5-4.9 [facility] Comment on above: Result Comment: The performance characteristics of phosphorus testing in heparinized plasma have been validated by the individual laboratory site where testing is performed. Testing on heparinized plasma is not approved by the FDA; however, such approval is not necessary. Performed By: #### 2 777-1 #### TEOFILO Flowers ([id number]) [facility] ([facility]) [address] [place] [address] Phosphoruson 10-13-2024 Phosphate [Mass/Vol] 3.5 mg/dL 2.5 - 4 .9 mg/dL [facility] Comment on above: The performance marc acteristics of phosphorus testing in heparinized plasma have been validated by the individual laboratory site where testing is performed. Testing on heparinized plasma is not approved by the FDA; however, such approval is not necessary. TSHon 10-13-2024 TSH Qn 5.02 m[IU]/L [facility] TSH Qnon 10-13-2024 Interpretation and review of laboratory results Abnormal [facility] TSH testing is performed using different testing methodology at [facility] than at other system hospitals. Direct result comparisons should only be made within the same method. [facility] Thyrotropinon 10-13-2024 TSH Qn 5.02 m[IU]/L High 0.44-3.98 [facility] Comment on above: Order Comment: TSH t esting is performed using different testing methodology at [facility] than at other [facility]. Direct result comparisons should only be made within the same method. Performed By: #### 3 016-3 #### TEOFILO Flowers ([id number]) [facility] ([facility]) [address] [place] [address] Basic Metabolic Profile (BMP )on 09-30-2024 BUN/CRE 18.6 RATIO Normal 10-20 [facility] Comment on above: Performed By: #### L 100.0500, L500.2500 ####[facility] [address] [place], [address] CA,Total 9.0 mg/dL Normal 8.5-10.1 [facility] Comment on above: Performed By: #### L 100.0500, L500.2500 ####[facility] [address] [place], [address] Chloride [Moles/Vol] 109 mmol/L High 98-107 [facility] Comment on above: Performed By: #### L 100.0500, L500.2500 ####[facility] [address] [place], [address] CO2 [Moles/Vol] 28.0 mmol/L Normal 21.0-32.0 [facility] Comment on above: Performed By: #### L 100.0500, L500.2500 ####[facility] [address] [place], [address] Creatinine [Mass/Vol] 1.02 mg/dL Normal 0.55-1.02 [facility] Comment on above: Result Comment: The validity of the calculated GFR GFRAA in patients over 70 years has not been determined. Clinical correlation is essential. Performed By: #### L 100.0500, L500.2500 ####[facility] [address] [place], [address] EST GFR - AA 69 mL/min Normal >60 [facility] Comment on above: Result Comment: Afri can Citizen [place] GFR Calc Performed By: #### L 100.0500, L500.2500 ####[facility] [address] [place], [address] GAP 4 Low 5-15 [facility] Comment on above: Performed By: #### L 100.0500, L500.2500 ####[facility] [address] [place], [address] GFR/1.73 sq M.predicted among non-blacks MDRD (S/P/Bld) [Vol rate/Area] 57 mL/min/{1.73_m2} Low >60 [facility] Comment on above: Result Comment: Non- GFR Calc Performed By: #### L 100.0500, L500.2500 ####[facility] [address] [place], [address] Glucose [Mass/Vol] 105 mg/dL Normal 74-106 [facility] Comment on above: Result Comment: Fast ing Glucose result from 100 to 125 mg/dL suggests IMPAIRED HOMEOSTASIS per A.D.A. criteria. Performed By: #### L 100.0500, L500.2500 ####[facility] [address] [place], [address] Potassium [Moles/Vol] 4.5 mmol/L Normal 3.5-5.1 [facility] Comment on above: Result Comment: Slig ht Hemolysis, Result may be falsely increased. Performed By: #### L 100.0500, L500.2500 ####[facility] [address] [place], [address] Sodium [Moles/Vol] 141 mmol/L Normal 136-145 [facility] Comment on above: Performed By: #### L 100.0500, L500.2500 ####[facility] [address] [place], [address] Urea nitrogen [Mass/Vol] 19 mg/dL High 7- [facility] Comment on above: Performed By: #### L 100.0500, L500.2500 ####[facility] [address] [place], [address] Blood urea nitrogen (BUN)/cr eatinine ratioon 09-30-2024 Urea nitrogen/Creatinine [Mass ratio] 18.6 mg/mg - [facility] CBC-Complete Blood Cnt No Di ffon 09-30-2024 Erythrocyte distribution width (RBC) [Ratio] 12.8 % Normal 11.6-14.6 [facility] Comment on above: Performed By: #### L 100.0500, L500.2500 ####[facility] [address] [place], [address] Hematocrit (Bld) [Volume fraction] 40.0 % Normal 37-47 [facility] Comment on above: Performed By: #### L 100.0500, L500.2500 ####[facility] [address] [place], [address] Hemoglobin (Bld) [Mass/Vol] 13.0 g/dL Normal 12.0-15.0 [facility] Comment on above: Performed By: #### L 100.0500, L500.2500 ####[facility] [address] [place], [address] MCH (RBC) [Entitic mass] 29.7 pg Normal 27.0-32.0 [facility] Comment on above: Performed By: #### L 100.0500, L500.2500 ####[facility] [address] [place], [address] MCHC (RBC) [Mass/Vol] 32.5 g/dL Normal 32-36 [facility] Comment on above: Performed By: #### L 100.0500, L500.2500 ####[facility] [address] [place], [address] MCV (RBC) [Entitic vol] 91.3 fL Normal 81-99 [facility] Comment on above: Performed By: #### L 100.0500, L500.2500 ####[facility] [address] [place], [address] Platelet mean volume (Bld) [Entitic vol] 10.8 fL Normal 6.2-12.0 [facility] Comment on above: Performed By: #### L 100.0500, L500.2500 ####[facility] [address] [place], [address] Platelets (Bld) [#/Vol] 161 10*3/uL Normal 150-450 [facility] Comment on above: Performed By: #### L 100.0500, L500.2500 ####[facility] [address] [place], [address] RBC (Bld) [#/Vol] 4.38 10*6/uL Normal 4.2-5.4 [facility] Comment on above: Performed By: #### L 100.0500, L500.2500 ####[facility] [address] [place], [address] RDW SD 43.1 fl Normal 35.1-43.9 [facility] Comment on above: Performed By: #### L 100.0500, L500.2500 ####[facility] [address] [place], [address] WBC (Bld) [#/Vol] 5.9 10*3/uL Normal 4.4-11.0 [facility] Comment on above: Performed By: #### L 100.0500, L500.2500 ####[facility] [address] [place], [address] Carbon dioxide measurementon 09-30-2024 CO2 [Moles/Vol] 28.0 mmol/L 21.0-32.0 [facility] Chloride measurementon 09-30 Chloride [Moles/Vol] 109 mmol/L High 98-107 [facility] Erythrocyte distribution wid th ratioon 09-30-2024 Erythrocyte distribution width (RBC) [Ratio] 12.8 % 11.6-14.6 [facility] Erythrocyte distribution wid th standard deviationon 09-30-2024 Erythrocyte distribution width (RBC) [Entitic vol] 43.1 fL 35.1-43.9 [facility] Estimated glomerular filtrat ion rate (GFR) Americanon 09-30-2024 Estimated GFR (MDRD) Amer 69 mL/min >60 [facility] Comment on above: GFR Calc Glomerular filtration rate ( GFR) estimationon 09-30-2024 Estimated GFR (MDRD) Non-Af Amer 57 mL/min Low >60 [facility] Comment on above: Non- GFR Calc Glucose measurementon 2023 Glucose [Mass/Vol] 105 mg/dL 74-106 [facility] Comment on above: Fasting Glucose resu lt from 100 to 125 mg/dL suggests IMPAIRED HOMEOSTASIS per A.D.A. criteria. Hematocrit Auto (Bld) [Volum e fraction]on 09-30-2024 Hematocrit (Bld) [Volume fraction] 40.0 % 37-47 [facility] Hemoglobin measurementon Hemoglobin (Bld) [Mass/Vol] 13.0 g/dL 12.0-15.0 [facility] MCV (mean corpuscular volume ) determinationon 09-30-2024 MCV (RBC) [Entitic vol] 91.3 fL 81-99 [facility] Mean corpuscular hemoglobin (MCH) determinationon 09-30-2024 MCH (RBC) [Entitic mass] 29.7 pg 27.0-32.0 [facility] Mean corpuscular hemoglobin concentration (MCHC) determinationon 09-30-2024 MCHC (RBC) [Mass/Vol] 32.5 g/dL 32-36 [facility] Mean platelet volume determi nationon 09-30-2024 Platelet mean volume (Bld) [Entitic vol] 10.8 fL 6.2-12.0 [facility] Platelet counton 09-30-2024 Platelets (Bld) [#/Vol] 161 10*3/uL 150-450 [facility] Potassium measurementon 09-09 Potassium [Moles/Vol] 4.5 mmol/L 3.5-5.1 [facility] Comment on above: Slight Hemolysis, Re sult may be falsely increased. RBC Auto (Bld) [#/Vol]on RBC (Bld) [#/Vol] 4.38 10*6/uL 4.2-5.4 [facility] Serum anion gap measuremento n 09-30-2024 Anion gap [Moles/Vol] 4 mmol/L Low 5-15 [facility] Serum or plasma calcium tripp urement (mass/volume)on 09-30-2024 Calcium [Mass/Vol] 9.0 mg/dL 8.5-10.1 [facility] Serum or plasma creatinine m easurement (mass/volume)on 09-30-2024 Creatinine [Mass/Vol] 1.02 mg/dL 0.55-1.02 [facility] Comment on above: The validity of the calculated GFR & GFRAA in patients over 70 years has not been determined. Clinical correlation is essential. Serum or plasma urea nitroge n measurement (mass/volume)on 09-30-2024 Urea nitrogen [Mass/Vol] 19 mg/dL High 7-18 [facility] Sodium levelon 09-30-2024 Sodium [Moles/Vol] 141 mmol/L 136-145 [facility] White blood cell (WBC) count on 09-30-2024 WBC (Bld) [#/Vol] 5.9 10*3/uL 4.4-11.0 [facility] 12 Lead EKG performed by [facility] on 09-14-2024 12 Lead EKG performed by [facility] [address] [place] [address] 12 Lead EKG performed by [facility] 11/05/31 809 MR#: [id number] Acct: [id number] Name: RADHA THOMAS Rep #: [id number] : 1955 69 From: Lashon Dennis Attending Dr: PAOLO Sewell Status: DEP AMB Ordering Dr: Lashon Baltazar Date: 05/31 Location: [facility] Sex: F C Admitted: BMS/12 Lead EKG performed by [facility] ECG Report Interpretation ------atrial fibrillation Low voltage in precordial leads. -Nonspecific QRS widening. - Nonspecific T-abnormality. ABNORMAL Electronically signed on 09/21/2024 at 08:01 by Storm [employer] Version [id number] 09/21/24803 Date Lashon BOONE CC: Dr. David Anderson MD Date Dictated: 09/14/24808 Date Transcribed: 09/14/24808 Chemistry Intern: SATISH Signed Normal [facility] Cardiology Visit Reporton Cardiology Visit Report [facility] [address] [place], [place] [address] OFFICE VISIT Date of Service: 09/14/24 MR#: [id number] Acct: [id number] Name: RADHA THOMAS Rep #: [id number] : 1955 Provider: PAOLO Ruiz Age/Sex: 69/F Location: [facility] Status: Signed HPI HPI History of Present [...] on a beta-clemente and anticoagulation with a AZG2QO7-RHBs score of 3. Patient did undergo a [...] beats. Patient was seen by EP at [facility]. She is in the process of being [...] (%) 97 Intake Visit Reasons: 3 M Dictionary Editor Required: No Is patient in pain?: No [...] Medical History (Updated 09/14/24 @ 08:57 by Lashon BOONE, PA) Persistent atrial fibrillation History of [...] external n (more content not included)... Normal [facility] ECG 12-LEADon 09-13-2024 ECG 12-LEAD Ventricular Rate 73 Atrial Rate 150 QRS Duration 98 Q-T Interval 408 QTC Calculation(Bazett) 449 R Shubert 31 T Shubert 64 QRS Count 13 Q Onset 220 T Offset 424 QTC Fredericia 435 Diagnosis Atrial fibrillation Abnormal ECG No previous ECGs available Confirmed by Lashonda Beltrán ([id number]) on 09/13/2024 3:38:49 PM Normal [facility] Basic Metabolic Profile (BMP )on 08-11-2024 BUN/CRE 18.6 RATIO Normal 10-20 [facility] Comment on above: Performed By: #### L 500.2500, L501.5200 #### [facility] [address] [place], [address] CA,Total 9.3 mg/dL Normal 8.5-10.1 [facility] Comment on above: Performed By: #### L 500.2500, L501.5200 #### [facility] [address] [place], [address] Chloride [Moles/Vol] 107 mmol/L Normal 98-107 [facility] Comment on above: Performed By: #### L 500.2500, L501.5200 #### [facility] [address] [place], [address] CO2 [Moles/Vol] 27.0 mmol/L Normal 21.0-32.0 [facility] Comment on above: Performed By: #### L 500.2500, L501.5200 #### [facility] [address] [place], [address] Creatinine [Mass/Vol] 0.91 mg/dL Normal 0.55-1.02 [facility] Comment on above: Result Comment: The validity of the calculated GFR GFRAA in patients over 70 years has not been determined. Clinical correlation is essential. Performed By: #### L 500.2500, L501.5200 #### [facility] [address] [place], [address] EST GFR - AA 78 mL/min Normal >60 [facility] Comment on above: Result Comment: Afri can Citizen [place] GFR Calc Performed By: #### L 500.2500, L501.5200 #### [facility] [address] [place], [address] GAP 3 Low 5-15 [facility] Comment on above: Performed By: #### L 500.2500, L501.5200 #### [facility] [address] [place], [address] GFR/1.73 sq M.predicted among non-blacks MDRD (S/P/Bld) [Vol rate/Area] 65 mL/min/{1.73_m2} Normal >60 [facility] Comment on above: Result Comment: Non- GFR Calc Performed By: #### L 500.2500, L501.5200 #### [facility] [address] [place], [address] Glucose [Mass/Vol] 104 mg/dL Normal 74-106 [facility] Comment on above: Result Comment: Fast ing Glucose result from 100 to 125 mg/dL suggests IMPAIRED HOMEOSTASIS per A.D.A. criteria. Performed By: #### L 500.2500, L501.5200 #### [facility] [address] [place], [address] Potassium [Moles/Vol] 4.6 mmol/L Normal 3.5-5.1 [facility] Comment on above: Performed By: #### L 500.2500, L501.5200 #### [facility] [address] [place], [address] Sodium [Moles/Vol] 137 mmol/L Normal 136-145 [facility] Comment on above: Performed By: #### L 500.2500, L501.5200 #### [facility] [address] [place], [address] Urea nitrogen [Mass/Vol] 17 mg/dL Normal 7-18 [facility] Comment on above: Performed By: #### L 500.2500, L501.5200 #### [facility] [address] [place], [address] Magnesiumon 08-11-2024 Magnesium [Mass/Vol] 2.1 mg/dL Normal 1.6-2.6 [facility] Comment on above: Performed By: #### L 500.2500, L501.5200 ####[facility] [address] [place], [address] Basophil percentageOrdered B y: Connor Anderson on 01-14-2024 Chloride [Moles/Vol] 109 mmol/L 98-107 [facility] Cholesterol [Mass/Vol] 204 mg/dL <200 [facility] Comment on above: <200 mg/dL Desirable 200-240 mg/dL Borderline >240 mg/dL High Risk Glucose [Mass/Vol] 102 mg/dL 74-106 [facility] Comment on above: Fasting Glucose resu lt from 100 to 125 mg/dL suggests IMPAIRED HOMEOSTASIS per A.D.A. criteria. Potassium [Moles/Vol] 4.0 mmol/L 3.5-5.1 [facility] Sodium [Moles/Vol] 141 mmol/L 136-145 [facility] Triglyceride [Mass/Vol] 35 mg/dL <199 [facility] Comment on above: The drugs N-Acetylcy steine and Metamizole may falsely depress this assay.Serum Triglycerides Reference Interval Normal <150 mg/dL Borderline high 150 - 199 mg/dL High 200 - 499 mg/dL Very High > or = 500 mg/dL Laboratory - Chemistry and C hemistry - challengeOrdered By: Connor Anderson on 01-14-2024 Cholesterol in HDL [Mass/Vol] 79 mg/dL >40 [facility] Comment on above: The drugs N-Acetylcy steine and Metamizole may falsely depress this assay. Reference Range HDL <40 mg/dL Low HDL Cholesterol HDL >or= 60 mg/dL High HDL Cholesterol Cholesterol in LDL [Mass/Vol] 118 mg/dL 0-130 [facility] CO2 [Moles/Vol] 27.0 mmol/L 21.0-32.0 [facility] Urea nitrogen/Creatinine [Mass ratio] 15.8 mg/mg 10-20 [facility] No Panel InformationOrdered By: Connor Anderson on 01-14-2024 Estimated GFR (MDRD) Amer 75 mL/min >60 [facility] Comment on above: GFR Calc Estimated GFR (MDRD) Non-Af Amer 62 mL/min >60 [facility] Comment on above: Non- GFR Calc Free Triiodothyronine (T3) pg/dL 2.2 pg/mL 2.18-3.98 [facility] VLDL Cholesterol 7 mg/dL 5-40 [facility] Serum or plasma calcium tripp urement (mass/volume)Ordered By: Connor Anderson on 01-14-2024 Calcium [Mass/Vol] 9.1 mg/dL 8.5-10.1 [facility] Serum or plasma creatinine m easurement (mass/volume)Ordered By: Connor Anderson on 01-14-2024 Creatinine [Mass/Vol] 0.95 mg/dL 0.55-1.02 [facility] Comment on above: The validity of the calculated GFR & GFRAA in patients over 70 years has not been determined. Clinical correlation is essential. Serum or plasma thyroid stim ulating hormone (TSH) measurement (units/volume)Ordered By: Connor Anderson on 01-14-2024 TSH Qn 2.25 uIU/mL 0.358-3.74 [facility] Serum or plasma urea nitroge n measurement (mass/volume)Ordered By: Connor Anderson on 01-14-2024 Urea nitrogen [Mass/Vol] 15 mg/dL 7-18 [facility] Thin prep Papanicolaou smear with manual screeningOrdered By: Connor Anderson on 01-14-2024 Thin prep Papanicolaou smear with manual screening 5 5-15 [facility] Thin prep Papanicolaou smear with manual screening 0.95 ng/dL 0.76-1.46 [facility] Basophil percentageOrdered B y: Troy Maia on 06-28-2023 WBC (Bld) [#/Vol] 5.3 10*3/uL 4.4-11.0 [facility] Blood erythrocytes count (nu mber/volume)Ordered By: Troy Carvalho on 06-28-2023 RBC (Bld) [#/Vol] 3.96 10*6/uL 4.2-5.4 [facility] Blood hemoglobin measurement (mass/volume)Ordered By: Troy Carvalho on 06-28-2023 Hemoglobin (Bld) [Mass/Vol] 11.5 g/dL 12.0-15.0 [facility] Blood platelet mean volumeOr dered By: Troy Carvalho on 06-28-2023 Platelet mean volume (Bld) [Entitic vol] 11.4 fL 6.2-12.0 [facility] Determination of erythrocyte mean corpuscular volume (MCV)Ordered By: Troy Carvalho on 06-28-2023 MCV (RBC) [Entitic vol] 89.4 fL 81-99 [facility] Hematocrit Auto (Bld) [Volum e fraction]Ordered By: Troy Carvalho on 06-28-2023 Hematocrit (Bld) [Volume fraction] 35.4 % 37-47 [facility] Laboratory - Hematology and Cell countsOrdered By: Troy Carvalho on 06-28-2023 Erythrocyte distribution width (RBC) [Entitic vol] 39.9 fL 35.1-43.9 [facility] Erythrocyte distribution width (RBC) [Ratio] 12.2 % 11.6-14.6 [facility] MCH (RBC) [Entitic mass] 29.0 pg 27.0-32.0 [facility] MCHC Auto (RBC) [Mass/Vol]Or dered By: Troy Carvalho on 06-28-2023 MCHC (RBC) [Mass/Vol] 32.5 g/dL 32-36 [facility] Platelets bldOrdered By: Saurav Carvalho on 06-28-2023 Platelets (Bld) [#/Vol] 174 10*3/uL 150-450 [facility] Basophil percentageOrdered B y: Connor Anderson on 06-22-2023 Chloride [Moles/Vol] 107 mmol/L 98-107 [facility] Cholesterol [Mass/Vol] 199 mg/dL <200 [facility] Comment on above: <200 mg/dL Desirable 200-240 mg/dL Borderline >240 mg/dL High Risk Glucose [Mass/Vol] 103 mg/dL 74-106 [facility] Comment on above: Fasting Glucose resu lt from 100 to 125 mg/dL suggests IMPAIRED HOMEOSTASIS per A.D.A. criteria. Potassium [Moles/Vol] 4.4 mmol/L 3.5-5.1 [facility] Sodium [Moles/Vol] 138 mmol/L 136-145 [facility] Triglyceride [Mass/Vol] 41 mg/dL <199 [facility] Comment on above: The drugs N-Acetylcy steine and Metamizole may falsely depress this assay.Serum Triglycerides Reference Interval Normal <150 mg/dL Borderline high 150 - 199 mg/dL High 200 - 499 mg/dL Very High > or = 500 mg/dL Laboratory - Chemistry and C hemistry - challengeOrdered By: Connor Anderson on 06-22-2023 CO2 [Moles/Vol] 27.0 mmol/L 21.0-32.0 [facility] Urea nitrogen/Creatinine [Mass ratio] 12.5 mg/mg 10-20 [facility] No Panel InformationOrdered By: Connor Anderson on 06-22-2023 Estimated GFR (MDRD) Amer 68 mL/min >60 [facility] Comment on above: GFR Calc Estimated GFR (MDRD) Non-Af Amer 56 mL/min >60 [facility] Comment on above: Non- GFR Calc Thyroid Stimulating Hormone (TSH) 1.92 uIU/mL 0.358-3.74 [facility] Vitamin D 25-Hydroxy 71.3 ng/mL [facility] Comment on above: Vitamin D 25(OH) Sta tus Range Deficiency <20 ng/mL (50nmol/L) Insufficiency 20 - 30 ng/mL (50 - 75 nmol/L) Sufficiency 30 - 100 ng/mL (75 - 250 nmol/L) Toxicity >100 ng/mL (>250 nmol/L) Serum or plasma calcium tripp urement (mass/volume)Ordered By: Connor Anderson on 06-22-2023 Calcium [Mass/Vol] 9.2 mg/dL 8.5-10.1 [facility] Serum or plasma cholesterol in HDL measurement (mass/volume)Ordered By: Connor Anderson on 06-22-2023 Cholesterol in HDL [Mass/Vol] 74 mg/dL >40 [facility] Comment on above: The drugs N-Acetylcy steine and Metamizole may falsely depress this assay. Reference Range HDL <40 mg/dL Low HDL Cholesterol HDL >or= 60 mg/dL High HDL Cholesterol Serum or plasma cholesterol in VLDL measurement (mass/volume)Ordered By: Connor Anderson on 06-22-2023 Cholesterol in VLDL [Mass/Vol] 8 mg/dL 5-40 [facility] Serum or plasma creatinine m easurement (mass/volume)Ordered By: Connor Anderson on 06-22-2023 Creatinine [Mass/Vol] 1.04 mg/dL 0.55-1.02 [facility] Comment on above: The validity of the calculated GFR & GFRAA in patients over 70 years has not been determined. Clinical correlation is essential. Serum or plasma low density lipoprotein (LDL) cholesterol measurement (mass/volume)Ordered By: Connor Anderson on 06-22-2023 Cholesterol in LDL [Mass/Vol] 117 mg/dL 0-130 [facility] Serum or plasma urea nitroge n measurement (mass/volume)Ordered By: Connor Anderson on 06-22-2023 Urea nitrogen [Mass/Vol] 13 mg/dL 7-18 [facility] Thin prep Papanicolaou smear with manual screeningOrdered By: Connor Anderson on 06-22-2023 Thin prep Papanicolaou smear with manual screening 4 5-15 [facility] Laboratory - Chemistry and C hemistry - challengeOrdered By: Dr. Anderson on 12-18-2022 Free T4 [Mass/Vol] 1.13 ng/dL 0.76-1.46 [facility] No Panel InformationOrdered By: Dr. Anderson on 12-18-2022 Thyroid Stimulating Hormone (TSH) 2.14 uIU/mL 0.358-3.74 [facility] Absolute lymphocyte countOrd ered By: Thais Lobo on 09-18-2022 Lymphocytes Auto (Unsp spec) [#/Vol] 1.43 10*3/uL 0.83-4.51 [facility] Basophil percentageOrdered B y: Thais Lobo on 09-18-2022 Basophils/100 WBC (Bld) 1.5 % 0-1 [facility] Bilirubin [Mass/Vol] 0.40 mg/dL 0.20-1.00 [facility] Comment on above: For patients on eltr ombopag therapy, use of Dimension [place] TBIL is not recommended. Chloride [Moles/Vol] 109 mmol/L 98-107 [facility] Cholesterol [Mass/Vol] 179 mg/dL <200 [facility] Comment on above: <200 mg/dL Desirable 200-240 mg/dL Borderline >240 mg/dL High Risk Eosinophils/100 WBC (Bld) 3.4 % 0-5 [facility] Glucose [Mass/Vol] 107 mg/dL 74-106 [facility] Comment on above: Fasting Glucose resu lt from 100 to 125 mg/dL suggests IMPAIRED HOMEOSTASIS per A.D.A. criteria. Neutrophils (Bld) [#/Vol] 2.7 10*3/uL 2.0-7.7 [facility] Neutrophils/100 WBC (Bld) 57.7 % 47-70 [facility] Potassium [Moles/Vol] 4.3 mmol/L 3.5-5.1 [facility] Protein [Mass/Vol] 7.3 g/dL 6.4-8.2 [facility] Sodium [Moles/Vol] 140 mmol/L 136-145 [facility] Triglyceride [Mass/Vol] 55 mg/dL <199 [facility] Comment on above: The drugs N-Acetylcy steine and Metamizole may falsely depress this assay.Serum Triglycerides Reference Interval Normal <150 mg/dL Borderline high 150 - 199 mg/dL High 200 - 499 mg/dL Very High > or = 500 mg/dL WBC (Bld) [#/Vol] 4.7 10*3/uL 4.4-11.0 [facility] Blood erythrocytes count (nu mber/volume)Ordered By: Thais Lobo on 09-18-2022 RBC (Bld) [#/Vol] 3.81 10*6/uL 4.2-5.4 [facility] Blood hemoglobin measurement (mass/volume)Ordered By: Thais Lobo on 09-18-2022 Hemoglobin (Bld) [Mass/Vol] 11.3 g/dL 12.0-15.0 [facility] Blood lymphocytes/100 leukoc ytesOrdered By: [facility]hell on 09-18-2022 Lymphocytes/100 WBC (Bld) 30.6 % 19-41 [facility] Blood monocytes/100 leukocyt esOrdered By: [facility] on 09-18-2022 Monocytes/100 WBC (Bld) 6.4 % 0-10 [facility] Blood platelet mean volumeOr dered By: [facility] on 09-18-2022 Platelet mean volume (Bld) [Entitic vol] 12.1 fL 6.2-12.0 [facility] Determination of erythrocyte mean corpuscular volume (MCV)Ordered By: [facility] Lashell on 09-18-2022 MCV (RBC) [Entitic vol] 89.8 fL 81-99 [facility] Hematocrit Auto (Bld) [Volum e fraction]Ordered By: [facility] Lashell on 09-18-2022 Hematocrit (Bld) [Volume fraction] 34.2 % 37-47 [facility] Laboratory - Chemistry and C hemistry - challengeOrdered By: [facility]22 ALP [Catalytic activity/Vol] 66 U/L 45-117 [facility] ALT [Catalytic activity/Vol] 39 U/L 13-56 [facility] CO2 [Moles/Vol] 24.0 mmol/L 21.0-32.0 [facility] Free T4 [Mass/Vol] 0.90 ng/dL 0.76-1.46 [facility] Globulin (S) [Mass/Vol] 3.6 g/dL 2.2-4.2 [facility] Urea nitrogen/Creatinine [Mass ratio] 18.8 mg/mg 10-20 [facility] Laboratory - Hematology and Cell countsOrdered By: [facility] Lashell on 09-18-2022 Erythrocyte distribution width (RBC) [Entitic vol] 43.6 fL 35.1-43.9 [facility] Erythrocyte distribution width (RBC) [Ratio] 13.3 % 11.6-14.6 [facility] Immature granulocytes/100 WBC (Bld) 0.400 % 0.0-0.9 [facility] Comment on above: IG% - Immature Granu locytes (promyelocytes, myelocytes and metamyelocytes) > 1% indicates that a LEFT SHIFT is Present. MCH (RBC) [Entitic mass] 29.7 pg 27.0-32.0 [facility] Nucleated RBC/100 WBC (Bld) [Ratio] 0 % 0-5 [facility] MCHC Auto (RBC) [Mass/Vol]Or dered By: Thais Lobo on 09-18-2022 MCHC (RBC) [Mass/Vol] 33.0 g/dL 32-36 [facility] No Panel InformationOrdered By: Thais Lobo on 09-18-2022 Estimated GFR (MDRD) Amer 75 mL/min >60 [facility] Comment on above: GFR Calc Estimated GFR (MDRD) Non-Af Amer 62 mL/min >60 [facility] Comment on above: Non- GFR Calc Free Triiodothyronine (T3) pg/dL 2.7 pg/mL 2.18-3.98 [facility] Thyroid Stimulating Hormone (TSH) 4.20 uIU/mL 0.358-3.74 [facility] Platelets bldOrdered By: Josiah harrell Statbaudilio on 09-18-2022 Platelets (Bld) [#/Vol] 176 10*3/uL 150-450 [facility] Serum or plasma albumin tripp urement (mass/volume)Ordered By: Thais Statbaudilio on 09-18-2022 Albumin [Mass/Vol] 3.7 g/dL 3.2-5.0 [facility] Serum or plasma albumin/glob ulin mass ratioOrdered By: Thais Statmayitooulmicki on 09-18-2022 Albumin/Globulin [Mass ratio] 1.0 {ratio} 0.9-2.4 [facility] Serum or plasma calcium tripp urement (mass/volume)Ordered By: Thais Statmayitooulmicki on 09-18-2022 Calcium [Mass/Vol] 8.5 mg/dL 8.5-10.1 [facility] Serum or plasma cholesterol in HDL measurement (mass/volume)Ordered By: Thais Lobo on 09-18-2022 Cholesterol in HDL [Mass/Vol] 83 mg/dL >40 [facility] Comment on above: The drugs N-Acetylcy steine and Metamizole may falsely depress this assay. Reference Range HDL <40 mg/dL Low HDL Cholesterol HDL >or= 60 mg/dL High HDL Cholesterol Serum or plasma cholesterol in VLDL measurement (mass/volume)Ordered By: Thais Lobo on 09-18-2022 Cholesterol in VLDL [Mass/Vol] 11 mg/dL 5-40 [facility] Serum or plasma creatinine m easurement (mass/volume)Ordered By: Thais [facility] on 09-18-2022 Creatinine [Mass/Vol] 0.96 mg/dL 0.55-1.02 [facility] Comment on above: The validity of the calculated GFR & GFRAA in patients over 70 years has not been determined. Clinical correlation is essential. Serum or plasma low density lipoprotein (LDL) cholesterol measurement (mass/volume)Ordered By: [facility] Lashell on 09-18-2022 Cholesterol in LDL [Mass/Vol] 85 mg/dL 0-130 [facility] Serum or plasma urea nitroge n measurement (mass/volume)Ordered By: [facility] on 09-18-2022 Urea nitrogen [Mass/Vol] 18 mg/dL 7-18 [facility] Thin prep Papanicolaou smear with manual screeningOrdered By: [facility] on 09-18-2022 Thin prep Papanicolaou smear with manual screening 20 U/L 15-37 [facility] Thin prep Papanicolaou smear with manual screening 7 5-15 [facility] Absolute lymphocyte counton 08-05-2022 Lymphocytes Auto (Unsp spec) [#/Vol] 1.76 10*3/uL 0.83-4.51 [facility] Work Phone: Basophil percentageon 2021 Basophils/100 WBC (Bld) 0.9 % 0-1 [facility] Work Phone: Bilirubin [Mass/Vol] 0.40 mg/dL 0.20-1.00 [facility] Work Phone: Comment on above: For patients on eltr ombopag therapy, use of Dim[place] TBIL is not recommended. Chloride [Moles/Vol] 108 mmol/L 98-107 [facility] Work Phone: Eosinophils/100 WBC (Bld) 3.6 % 0-5 [facility] Work Phone: Glucose [Mass/Vol] 110 mg/dL 74-106 [facility] Work Phone: [phone] Comment on above: Fasting Glucose resu lt from 100 to 125 mg/dL suggests IMPAIRED HOMEOSTASIS per A.D.A. criteria. Neutrophils (Bld) [#/Vol] 3.1 10*3/uL 2.0-7.7 [facility] Work Phone: Neutrophils/100 WBC (Bld) 56.9 % 47-70 [facility] Work Phone: Potassium [Moles/Vol] 4.1 mmol/L 3.5-5.1 [facility] Work Phone: Protein [Mass/Vol] 7.5 g/dL 6.4-8.2 [facility] Work Phone: Sodium [Moles/Vol] 139 mmol/L 136-145 [facility] Work Phone: WBC (Bld) [#/Vol] 5.5 10*3/uL 4.4-11.0 [facility] Work Phone: Blood erythrocytes count (nu mber/volume)on 08-05-2022 RBC (Bld) [#/Vol] 4.58 10*6/uL 4.2-5.4 [facility] Work Phone: Blood hemoglobin measurement (mass/volume)on 08-05-2022 Hemoglobin (Bld) [Mass/Vol] 13.1 g/dL 12.0-15.0 [facility] Work Phone: Blood lymphocytes/100 leukoc yteson 08-05-2022 Lymphocytes/100 WBC (Bld) 31.8 % 19-41 [facility] Work Phone: Blood monocytes/100 leukocyt eson 08-05-2022 Monocytes/100 WBC (Bld) 6.3 % 0-10 [facility] Work Phone: Blood platelet mean volumeon 08-05-2022 Platelet mean volume (Bld) [Entitic vol] 12.3 fL 6.2-12.0 [facility] Work Phone: Determination of erythrocyte mean corpuscular volume (MCV)on 08-05-2022 MCV (RBC) [Entitic vol] 89.7 fL 81-99 [facility] Work Phone: Hematocrit Auto (Bld) [Volum e fraction]on 08-05-2022 Hematocrit (Bld) [Volume fraction] 41.1 % 37-47 [facility] Work Phone: Laboratory - Chemistry and C hemistry - challengeon 08-05-2022 ALP [Catalytic activity/Vol] 66 U/L 45-117 [facility] Work Phone: ALT [Catalytic activity/Vol] 47 U/L 13-56 [facility] Work Phone: CO2 [Moles/Vol] 23.0 mmol/L 21.0-32.0 [facility] Work Phone: Free T4 [Mass/Vol] 0.98 ng/dL 0.76-1.46 [facility] Work Phone: Globulin (S) [Mass/Vol] 3.9 g/dL 2.2-4.2 [facility] Work Phone: Urea nitrogen/Creatinine [Mass ratio] 13.8 mg/mg 10-20 [facility] Work Phone: Laboratory - Hematology and Cell countson 08-05-2022 Erythrocyte distribution width (RBC) [Entitic vol] 42.5 fL 35.1-43.9 [facility] Work Phone: Erythrocyte distribution width (RBC) [Ratio] 13.1 % 11.6-14.6 [facility] Work Phone: Immature granulocytes/100 WBC (Bld) 0.500 % 0.0-0.9 [facility] Work Phone: Comment on above: IG% - Immature Granu locytes (promyelocytes, myelocytes and metamyelocytes) > 1% indicates that a LEFT SHIFT is Present. MCH (RBC) [Entitic mass] 28.6 pg 27.0-32.0 [facility] Work Phone: Nucleated RBC/100 WBC (Bld) [Ratio] 0 % 0-5 [facility] Work Phone: MCHC Auto (RBC) [Mass/Vol]on 08-05-2022 MCHC (RBC) [Mass/Vol] 31.9 g/dL 32-36 [facility] Work Phone: No Panel Informationon 08-05 Estimated GFR (MDRD) Amer 76 mL/min >60 [facility] Work Phone: Comment on above: GFR Calc Estimated GFR (MDRD) Non-Af Amer 63 mL/min >60 [facility] Work Phone: Comment on above: Non- GFR Calc Thyroid Stimulating Hormone (TSH) 4.04 uIU/mL 0.358-3.74 [facility] Work Phone: Platelets bldon 08-05-2022 Platelets (Bld) [#/Vol] 181 10*3/uL 150-450 [facility] Work Phone: Serum or plasma albumin tripp urement (mass/volume)on 08-05-2022 Albumin [Mass/Vol] 3.6 g/dL 3.2-5.0 [facility] Work Phone: Serum or plasma albumin/glob ulin mass ratioon 08-05-2022 Albumin/Globulin [Mass ratio] 0.9 {ratio} 0.9-2.4 [facility] Work Phone: Serum or plasma calcium tripp urement (mass/volume)on 08-05-2022 Calcium [Mass/Vol] 8.9 mg/dL 8.5-10.1 [facility] Work Phone: Serum or plasma creatinine m easurement (mass/volume)on 08-05-2022 Creatinine [Mass/Vol] 0.94 mg/dL 0.55-1.02 [facility] Work Phone: Comment on above: The validity of the calculated GFR & GFRAA in patients over 70 years has not been determined. Clinical correlation is essential. Serum or plasma urea nitroge n measurement (mass/volume)on 08-05-2022 Urea nitrogen [Mass/Vol] 13 mg/dL 7-18 [facility] Work Phone: Thin prep Papanicolaou smear with manual screeningon 08-05-2022 Thin prep Papanicolaou smear with manual screening 24 U/L 15-37 [facility] Work Phone: Thin prep Papanicolaou smear with manual screening 8 5-15 [facility] Work Phone: Basophil percentageon 2021 Chloride [Moles/Vol] 107 mmol/L 98-107 [facility] Work Phone: Cholesterol [Mass/Vol] 215 mg/dL <200 [facility] Work Phone: Comment on above: <200 mg/dL Desirable 200-240 mg/dL Borderline >240 mg/dL High Risk Glucose [Mass/Vol] 92 mg/dL 74-106 [facility] Work Phone: Potassium [Moles/Vol] 4.5 mmol/L 3.5-5.1 [facility] Work Phone: Sodium [Moles/Vol] 140 mmol/L 136-145 [facility] Work Phone: Triglyceride [Mass/Vol] 62 mg/dL <199 [facility] Work Phone: Comment on above: The drugs N-Acetylcy steine and Metamizole may falsely depress this assay.Serum Triglycerides Reference Interval Normal <150 mg/dL Borderline high 150 - 199 mg/dL High 200 - 499 mg/dL Very High > or = 500 mg/dL Laboratory - Chemistry and C hemistry - challengeon 04-21-2022 CO2 [Moles/Vol] 28.0 mmol/L 21.0-32.0 [facility] Work Phone: Urea nitrogen/Creatinine [Mass ratio] 16.0 mg/mg 10-20 [facility] Work Phone: No Panel Informationon 04-21 Estimated GFR (MDRD) Amer 83 mL/min >60 [facility] Work Phone: Comment on above: GFR Calc Estimated GFR (MDRD) Non-Af Amer 68 mL/min >60 [facility] Work Phone: Comment on above: Non- GFR Calc Thyroid Stimulating Hormone (TSH) 3.32 uIU/mL 0.358-3.74 [facility] Work Phone: Vitamin D 25-Hydroxy 50.6 ng/mL [facility] Work Phone: Comment on above: Vitamin D 25(OH) Sta tus Range Deficiency <20 ng/mL (50nmol/L) Insufficiency 20 - 30 ng/mL (50 - 75 nmol/L) Sufficiency 30 - 100 ng/mL (75 - 250 nmol/L) Toxicity >100 ng/mL (>250 nmol/L) Serum or plasma calcium tripp urement (mass/volume)on 04-21-2022 Calcium [Mass/Vol] 9.1 mg/dL 8.5-10.1 [facility] Work Phone: Serum or plasma cholesterol in HDL measurement (mass/volume)on 04-21-2022 Cholesterol in HDL [Mass/Vol] 77 mg/dL >40 [facility] Work Phone: Comment on above: The drugs N-Acetylcy steine and Metamizole may falsely depress this assay. Reference Range HDL <40 mg/dL Low HDL Cholesterol HDL >or= 60 mg/dL High HDL Cholesterol Serum or plasma cholesterol in VLDL measurement (mass/volume)on 04-21-2022 Cholesterol in VLDL [Mass/Vol] 12 mg/dL 5-40 [facility] Work Phone: Serum or plasma creatinine m easurement (mass/volume)on 04-21-2022 Creatinine [Mass/Vol] 0.88 mg/dL 0.55-1.02 [facility] Work Phone: Comment on above: The validity of the calculated GFR & GFRAA in patients over 70 years has not been determined. Clinical correlation is essential. Serum or plasma low density lipoprotein (LDL) cholesterol measurement (mass/volume)on 04-21-2022 Cholesterol in LDL [Mass/Vol] 126 mg/dL 0-130 [facility] Work Phone: Serum or plasma urea nitroge n measurement (mass/volume)on 04-21-2022 Urea nitrogen [Mass/Vol] 14 mg/dL 7-18 [facility] Work Phone: Thin prep Papanicolaou smear with manual screeningon 04-21-2022 Thin prep Papanicolaou smear with manual screening 5 5-15 [facility] Work Phone: Vital Signs Date Time Vital Sign Value Performing Clinician Treyi amanda 06-28-2025 07:26-0400 Body mass index (BMI) [Ratio] 30.7 kg/m2 Dr. David Anderson MD Work Phone: [facility] 06-28-2025 07:26-0400 Body weight 83.[address] David Anderson MD Work Phone: [facility] 06-28-2025 07:26-0400 Diastolic blood pressure 78 mm[Hg] Dr. David Anderson MD Work Phone: [facility] 06-28-2025 07:26-0400 Heart rate 68 /min Dr. David Anderson MD Work Phone: [facility] 06-28-2025 07:26-0400 Respiratory rate 18 /min Dr. David Anderson MD Work Phone: [facility] 06-28-2025 07:26-0400 SaO2% (BldA) [Mass fraction] 99 % Dr. David Anderson MD Work Phone: [facility] 06-28-2025 07:26-0400 Systolic blood pressure 123 mm[Hg] Dr. David Anderson MD Work Phone: [facility] 05-03-2025 08:13-0400 Body height 165.[address] David Anderson MD Work Phone: [phone] [address] 05-03-2025 08:13-0400 Body mass index (BMI) [Ratio] 31.1 kg/m2 Dr. David Anderson MD Work Phone: [phone] [place] [address] 05-03-2025 08:13-0400 Body weight 84.[address] David Anderson MD Work Phone: [facility] 05-03-2025 08:13-0400 Diastolic blood pressure 86 mm[Hg] Dr. David Anderson MD Work Phone: [facility] 05-03-2025 08:13-0400 Heart rate 69 /min Dr. David Anderson MD Work Phone: [phone] [address] 05-03-2025 08:13-0400 Respiratory rate 16 /min Dr. David Anderson MD Work Phone: [facility] 05-03-2025 08:13-0400 Systolic blood pressure 149 mm[Hg] Dr. David Anderson MD Work Phone: [facility] 04-30-2025 14:37-0400 Body height 166.4 cm Lashonda Beltrán MD Work Phone: [facility] 04-30-2025 14:37-0400 Body mass index (BMI) [Ratio] 29.99 kg/m2 Lashonda Beltrán MD Work Phone: [facility] 04-30-2025 14:37-0400 Body weight 83.01 kg Lashonda Beltrán MD Work Phone: [facility] 04-30-2025 14:37-0400 Diastolic blood pressure 79 mm[Hg] Lashonda Beltrán MD Work Phone: [facility] 04-30-2025 14:37-0400 Heart rate 70 /min Lashonda Beltrán MD Work Phone: [facility] 04-30-2025 14:37-0400 Respiratory rate 18 /min Lashonda Beltrán MD Work Phone: [facility] 04-30-2025 14:37-0400 SaO2% (BldA) [Mass fraction] 98 % Lashonda Beltrán MD Work Phone: [facility] 04-30-2025 14:37-0400 Systolic blood pressure 143 mm[Hg] Lashonda Beltrán MD Work Phone: [facility] 01-10-2025 15:06-0500 Body height 166.4 cm Lashonda Beltrán MD Work Phone: [facility] 01-10-2025 15:06-0500 Body mass index (BMI) [Ratio] 28.51 kg/m2 Lashonda Beltrán MD Work Phone: [facility] 01-10-2025 15:06-0500 Body weight 78.93 kg Lashonda Beltrán MD Work Phone: [facility] 01-10-2025 15:06-0500 Diastolic blood pressure 90 mm[Hg] Lashonda Beltrán MD Work Phone: [facility] 01-10-2025 15:06-0500 Heart rate 70 /min Lashonda Beltrán MD Work Phone: [facility] 01-10-2025 15:06-0500 Respiratory rate 18 /min Lashonda Beltrán MD Work Phone: [facility] 01-10-2025 15:06-0500 SaO2% (BldA) [Mass fraction] 98 % Lashonda Beltrán MD Work Phone: [facility] 01-10-2025 15:06-0500 Systolic blood pressure 166 mm[Hg] Lashonda Beltrán MD Work Phone: [facility] 12-15-2024 11:22-0500 Body temperature 98.2 [degF] Lashonda Beltrán MD Work Phone: [facility] 12-15-2024 11:22-0500 Diastolic blood pressure 75 mm[Hg] Lashonda Beltrán MD Work Phone: [facility] 12-15-2024 11:22-0500 Heart rate 70 /min Lashonda Beltrán MD Work Phone: [facility] 12-15-2024 11:22-0500 Respiratory rate 16 /min Lashonda Beltrán MD Work Phone: [facility] 12-15-2024 11:22-0500 SaO2% (BldA) [Mass fraction] 98 % Lashonda Beltrán MD Work Phone: [facility] 12-15-2024 11:22-0500 Systolic blood pressure 146 mm[Hg] Lashonda Beltrán MD Work Phone: [facility] 12-14-2024 11:24-0500 Body height 165.1 cm Lashonda Beltrán MD Work Phone: [facility] 12-14-2024 11:24-0500 Body mass index (BMI) [Ratio] 28.79 kg/m2 Lashonda Beltrán MD Work Phone: [facility] 12-14-2024 11:24-0500 Body weight 78.47 kg Lashonda Beltrán MD Work Phone: [facility] 12-13-2024 17:05-0500 Diastolic blood pressure 80 mm[Hg] Dr. David Anderson MD Work Phone: [facility] 12-13-2024 17:05-0500 Systolic blood pressure 120 mm[Hg] Dr. David Anderson MD Work Phone: [facility] 12-13-2024 08:36-0500 Body height 165.[address] David Anderson MD Work Phone: [facility] 12-13-2024 08:36-0500 Body mass index (BMI) [Ratio] 28.8 kg/m2 Dr. David Anderson MD Work Phone: [facility] 12-13-2024 08:36-0500 Body weight 78.[address] David nAderson MD Work Phone: [facility] 12-13-2024 08:36-0500 Heart rate 78 /min Dr. David Anderson MD Work Phone: [facility] 12-13-2024 08:36-0500 Respiratory rate 18 /min Dr. David Anderson MD Work Phone: [facility] 12-13-2024 08:36-0500 SaO2% (BldA) [Mass fraction] 96 % Dr. David Anderson MD Work Phone: [facility] 11-15-2024 14:46-0500 Body height 165.1 cm Lashonda Beltrán MD Work Phone: [facility] 11-15-2024 14:46-0500 Body mass index (BMI) [Ratio] 28.29 kg/m2 Lashonda Beltrán MD Work Phone: [facility] 11-15-2024 14:46-0500 Body weight 77.11 kg Lashonda Beltrán MD Work Phone: [facility] 11-15-2024 14:46-0500 Diastolic blood pressure 74 mm[Hg] Lashonda Beltrán MD Work Phone: [facility] 11-15-2024 14:46-0500 Heart rate 91 /min Lashonda Beltrán MD Work Phone: [facility] 11-15-2024 14:46-0500 Respiratory rate 18 /min Lashonda Beltrán MD Work Phone: [facility] 11-15-2024 14:46-0500 SaO2% (BldA) [Mass fraction] 98 % Lashonda Beltrán MD Work Phone: [facility] 11-15-2024 14:46-0500 Systolic blood pressure 119 mm[Hg] Lashonda Beltrán MD Work Phone: [facility] 10-16-2024 15:00-0500 Heart rate 93 /min Lashonda Beltrán MD Work Phone: [facility] 10-16-2024 15:00-0500 Respiratory rate 21 /min Lashonda Beltrán MD Work Phone: [facility] 10-16-2024 15:00-0500 SaO2% (BldA) [Mass fraction] 97 % Lashonda Beltrán MD Work Phone: [facility] 10-16-2024 12:16-0500 Body temperature 96.8 [degF] Lashonda Beltrán MD Work Phone: [facility] 10-16-2024 05:57-0500 Body mass index (BMI) [Ratio] 30.56 kg/m2 Lashonda Beltrán MD Work Phone: [facility] 10-16-2024 05:57-0500 Body weight 83.3 kg Lashonda Beltrán MD Work Phone: [facility] 10-13-2024 20:00-0500 Body height 165.1 cm Lashonda Beltrán MD Work Phone: [facility] 10-13-2024 17:17-0500 Diastolic blood pressure 78 mm[Hg] Lashonda Beltrán MD Work Phone: [facility] 10-13-2024 17:17-0500 Systolic blood pressure 125 mm[Hg] Lashonda Beltrán MD Work Phone: [facility] 09-13-2024 12:56-0500 Body height 166.4 cm Lashonda Beltrán MD Work Phone: [facility] 09-13-2024 12:56-0500 Body mass index (BMI) [Ratio] 28.35 kg/m2 Lashonda Beltrán MD Work Phone: [facility] 09-13-2024 12:56-0500 Body weight 78.47 kg Lashonda Beltrán MD Work Phone: [facility] 09-13-2024 12:56-0500 Diastolic blood pressure 83 mm[Hg] Lashonda Beltrán MD Work Phone: [facility] 09-13-2024 12:56-0500 Heart rate 73 /min Lashonda Beltrán MD Work Phone: [facility] 09-13-2024 12:56-0500 Systolic blood pressure 144 mm[Hg] Lashonda Beltrán MD Work Phone: [facility] 02-02-2024 14:39-0400 Body height 166.[address] David Anderson Work Phone: [facility] 02-02-2024 14:39-0400 Body mass index (BMI) [Ratio] 26.6 kg/m2 Dr. David Anderson Work Phone: [facility] 02-02-2024 14:39-0400 Body weight 73.[address] David Anderson Work Phone: [facility] 02-02-2024 14:39-0400 Diastolic blood pressure 58 mm[Hg] Dr. David Anderson Work Phone: [facility] 02-02-2024 14:39-0400 Respiratory rate 16 /min Dr. David Anderson Work Phone: [facility] 02-02-2024 14:39-0400 Systolic blood pressure 132 mm[Hg] Dr. David Anderson Work Phone: [facility] 06-28-2023 09:53-0400 Body temperature 98.4 [degF] Dr. Connor Anderson Work Phone: [facility] 06-28-2023 09:53-0400 Diastolic blood pressure 59 mm[Hg] Dr. Connor Anderson Work Phone: [facility] 06-28-2023 09:53-0400 Heart rate 65 /min Dr. Connor Anderson Work Phone: [facility] 06-28-2023 09:53-0400 Respiratory rate 16 /min Dr. Connor Anderson Work Phone: [facility] 06-28-2023 09:53-0400 SaO2% (BldA) [Mass fraction] 96 % Dr. Connor Anderson Work Phone: [facility] 06-28-2023 09:53-0400 Systolic blood pressure 127 mm[Hg] Dr. Cnonor Anderson Work Phone: [facility] 06-28-2023 06:30-0400 Body height 166.[address] Connor Anderson Work Phone: [facility] 06-28-2023 06:30-0400 Body mass index (BMI) [Ratio] 27 kg/m2 Dr. Connor Anderson Work Phone: [facility] 06-28-2023 06:30-0400 Body weight 74.[address] Connor Anderson Work Phone: [facility] Encounters Encounter Date Encounter Type Care Provider Facility Start: 07-26-2025 ambulatory David Montgomery lity:[facility] Start: 07-10-2025 End: 07-10-[address] David Anderson MD Work Phone: -Outpatient Breast Imaging Start: 07-10-2025 End: 07-10-[address] David Anderson MD -Outpatient Breast Imaging Work Phone: Start: 07-10-2025 End: 07-10-2025 ambulatory [facility] Facility:[facility] Start: 06-28-2025 End: 06-28-2025 Patient encounter procedure Lashon BOONE -[facility] Work Phone: Start: 06-28-2025 End: 06-28-[address] David Anderson MD Work Phone: -[facility] Start: 06-22-2025 End: 06-22-[address] David Anderson MD Work Phone: -Laboratory Start: 06-22-2025 End: 06-22-[address] David Anderson MD -Laboratory Work Phone: Start: 06-22-2025 End: 06-22-2025 ambulatory David Anderson Facility:[facility] Start: 05-19-2025 End: 05-19-[address] David Anderson MD Work Phone: -Laboratory Start: 05-19-2025 End: 05-19-2025 Patient encounter procedure Lashon BOONE -Laboratory Work Phone: Start: 05-19-2025 End: 05-19-2025 ambulatory David Anderson Facility:[facility] Start: 05-03-2025 End: 05-03-2025 Patient encounter procedure Lashon BOONE -[facility] Work Phone: Start: 05-03-2025 End: 05-03-[address] David Anderson MD Work Phone: [facility] Work Phone: Start: 04-30-2025 End: 04-30-2025 Office outpatient visit 25 minutes Lashonda Beltrán MD Work Phone: [facility] Comment on above: Persistent atrial fi brillation (Multi) (Primary Dx); On amiodarone therapy Start: 04-30-2025 End: 04-30-2025 Subsequent hospital visit by physician Joe Beltrán [facility] Comment on above: Atrial fibrillation, unspecified type (Multi); Presence of cardiac pacemaker Start: 04-30-2025 End: 04-30-2025 ambulatory LASHONDA [facility] Start: 01-22-2025 Non-patient / Non-visit Dr. Leonid villa DO -[facility] Start: 01-22-2025 End: 01-22-[address] David Anderson MD Work Phone: [facility] Work Phone: Start: 01-22-2025 End: 01-22-[address] David Anderson MD Work Phone: -Pulmonary Services/Neurology Work Phone: Start: 01-22-2025 End: 01-22-2025 ambulatory [facility] Facility:[facility] Start: 01-12-2025 End: 01-12-[address] David Anderson MD Work Phone: [facility] Work Phone: Start: 01-12-2025 End: 01-12-[address] David Anderson MD Work Phone: -Laboratory Work Phone: Start: 01-12-2025 End: 01-12-2025 ambulatory [facility] Facility:[facility] Start: 01-10-2025 End: 01-10-2025 Subsequent hospital visit by physician Joe Device Bedside [facility] Comment on above: Atrial fibrillation, unspecified type (Multi); Presence of cardiac pacemaker Start: 01-10-2025 End: 01-10-2025 ambulatory LASHONDA Moore [facility] Start: 01-10-2025 End: 01-10-2025 Office outpatient visit 25 minutes Lashonda Beltrán MD Work Phone: [facility] Comment on above: On amiodarone therap y (Primary Dx); Atrial fibrillation, unspecified type (Multi) Start: 12-24-2024 Encounter for preprocedural laboratory examination [facility] Start: 12-22-2024 End: 12-22-2024 Subsequent hospital visit by physician Minoff Device Remote [facility] Comment on above: Atrial fibrillation/ flutter (Multi) Start: 12-22-2024 End: 12-22-2024 ambulatory LASHONDA Moore [facility] Start: 12-14-2024 End: 12-18-2024 ambulatory HELEN Rodriguez [facility] Start: 12-14-2024 End: 12-14-2024 Subsequent hospital visit by physician Tomas Albarranv1 [facility] Comment on above: Arrived Start: 12-14-2024 End: 12-15-2024 ambulatory LASHONDA Moore [facility] Start: 12-14-2024 End: 12-15-2024 Subsequent hospital visit by physician Lashonda Beltrán MD Work Phone: [facility] 4 Comment on above: Longstanding persist ent atrial fibrillation (Multi) (Primary Dx); Conduction disorder, unspecified; Status post placement of cardiac pacemaker Start: 12-13-2024 End: 12-13-2024 Patient encounter procedure Lashon Baltazar [place] -[facility] Work Phone: Start: 12-13-2024 End: 12-13-2024 ambulatory David Anderson Facility:[facility] Start: 12-06-2024 End: 12-06-[address] David Anderson MD Work Phone: -Laboratory Work Phone: Start: 12-06-2024 End: 12-06-2024 ambulatory [facility] Facility:[facility] Start: 11-15-2024 End: 11-15-2024 Office outpatient visit 25 minutes Lashonda Beltrán MD Work Phone: [facility] Comment on above: Longstanding persist ent atrial fibrillation (Multi) (Primary Dx) Start: 11-15-2024 End: 11-15-2024 ambulatory LASHONDA Moore [facility] Start: 10-29-2024 Encounter for other preprocedural examination MAURO [facility] Start: 10-13-2024 End: 10-16-2024 Evaluation and management of inpatient Lashonda Beltrán MD Work Phone: [facility] Comment on above: Unspecified atrial f ibrillation (Multi) (Primary Dx); Longstanding persistent atrial fibrillation (Multi); Heart block; Primary hypertension; Other acute pericarditis (HHS-HCC) Start: 09-30-2024 End: 09-30-[address] David Anderson MD Work Phone: -Laboratory Work Phone: Start: 09-30-2024 End: 09-30-2024 ambulatory MAURO HARRIS Facility:[facility] Start: 09-14-2024 End: 09-14-2024 ambulatory David Anderson Facility:[facility] Start: 09-13-2024 End: 09-13-2024 Office outpatient new 45 minutes Lashonda Beltrán MD Work Phone: [facility] Comment on above: Atrial fibrillation, unspecified type (Multi) (Primary Dx); Preop testing Start: 09-13-2024 End: 09-13-2024 Patient encounter status Lashonda Beltrán MD Work Phone: [facility] Work Phone: Start: 09-13-2024 End: 09-13-2024 ambulatory LASHONDA Moore [facility] Start: 09-13-2024 End: 09-13-2024 Encounter for other preprocedural examination LASHONDA BELTRÁN [facility] Start: 08-16-2024 ambulatory David Anderson Faci lity:[facility] Start: 08-16-2024 End: 08-16-2024 ambulatory David Anderson Facility:[facility] Start: 08-11-2024 End: 08-11-2024 ambulatory David Anderson Facility:[facility] Start: 02-09-[address] Broderick [facility] Work Phone: Start: 02-08-2024 Non-patient / Non-visit Dr. Cesar Anderson Work Phone: [facility] Start: 02-08-2024 End: 02-08-[address] David Anderson Work Phone: [facility] Work Phone: Start: 02-08-2024 End: 02-08-[address] David Anderson [facility] Work Phone: Start: 02-02-2024 End: 02-02-[address] David Anderson Work Phone: [facility] Work Phone: Start: 01-14-2024 End: 01-14-2024 ambulatory [facility] Work Phone: Start: 01-14-2024 End: 01-14-2024 Patient encounter procedure [facility] Start: 06-28-2023 End: 06-28-2023 Admission to same day surgery center Dr. Connor Anderson Work Phone: [facility]-Surgical Day Care Start: 06-28-2023 End: 06-28-[address] Connor Anderson Work Phone: [facility] Work Phone: Start: 05-05-2023 End: 05-05-[address] Connor Anderson Work Phone: [facility] Work Phone: Start: 05-05-2023 End: 05-05-[address] Connor Anderson Work Phone: [facility]-Outpatient Breast Imaging Work Phone: Start: 04-20-2023 End: 04-20-[address] Connor Anderson Work Phone: [facility] Work Phone: Start: 04-20-2023 End: 04-20-[address] Connor Anderson Work Phone: [facility] Start: 03-04-2023 End: 03-04-[address] Connor Anderson Work Phone: [facility] Start: 12-18-2022 End: 12-18-2022 ambulatory [facility] Work Phone: Start: 12-18-2022 End: 12-18-2022 Patient encounter procedure [facility] Start: 09-18-2022 End: 09-18-2022 ambulatory [facility] Work Phone: Start: 09-18-2022 End: 09-18-2022 Patient encounter procedure [facility] Start: 08-05-2022 End: 08-05-2022 ambulatory [facility] Work Phone: Start: 08-05-2022 End: 08-05-2022 Patient encounter procedure [facility] Start: 04-30-2022 End: 04-30-2022 Patient encounter procedure [facility]-Outpatient Bone Densitometry Start: 04-21-2022 End: 04-21-2022 Patient encounter procedure [facility] Procedures Date Procedure Procedure Detail Performing Clinician Start: 07-10-[address] David sandhu MD Work Phone: Start: 12-15-2024 CARDIAC DEVICE CHECK CHECK - INPATIENT Helen Ortiz [facility] Work Phone: Start: 12-15-2024 Radiologic exam chest 2 views Helen Ortiz [facility] Work Phone: Start: 12-15-2024 Basic metabolic panel calcium total Heeln Ortiz [facility] Work Phone: Start: 12-14-2024 Ecg routine ecg w/least 12 lds trcg only w/o i&r Helen Ortiz [facility] Work Phone: Start: 12-14-2024 Electrophysiology study Lashonda Beltrán MD Work Phone: Start: 10-16-2024 Ecg routine ecg w/least 12 lds trcg only w/o i&r Bert Kay MD Work Phone: Start: 10-16-2024 Ecg routine ecg w/least 12 lds trcg only w/o i&r Bert Kay MD Work Phone: Start: 10-16-2024 Radiologic exam chest single view Rainer Tay MD Work Phone: Start: 10-16-2024 Renal function panel Bert Kay MD Work Phone: Start: 10-15-2024 Ecg routine ecg w/least 12 lds trcg only w/o i&r Bert Kay MD Work Phone: Start: 10-15-2024 End: 10-15-2024 Renal function panel Rogelio Morales MD Work Phone: Start: 10-15-2024 Echo transthorc r-t 2d w/wo m-mode rec f-up/lmtd Rogelio Morales MD Work Phone: Start: 10-14-2024 Radiologic exam chest single view Bert Kay MD Work Phone: Start: 10-14-2024 C-reactive protein Rogelio Morales MD Work Phone: Start: 10-14-2024 End: 10-14-2024 Renal function panel Bert Kay MD Work Phone: Start: 10-14-2024 Ecg routine ecg w/least 12 lds trcg only w/o i&r Adria Luciano MD Work Phone: Start: 10-13-2024 End: 10-13-2024 Comprehensive metabolic panel Bert Kay MD Work Phone: Start: 10-13-2024 PULSE OXIMETRY, CONTINUOUS Bert brunner MD Work Phone: Start: 10-13-2024 End: 10-13-2024 Ecg routine ecg w/least 12 lds trcg only w/o i&r Adria Luciano MD Work Phone: Start: 10-13-2024 Cardiac catheterization study Lashonda solitario MD Work Phone: Start: 10-13-2024 Electrophysiology study Lashonda Beltrán MD Work Phone: Start: 10-13-2024 Thyrotropin [Units/volume] in Serum or Plasma Lashonda Beltrán MD Work Phone: Start: 06-28-2023 Functional Endoscopoic Sinus Surgery (Right) Dr. Connor Anderson Work Phone: Start: 05-05-[address] Connor chandra Work Phone: Start: 04-20-[address] Connor lopez Work Phone: Start: 03-04-2023 Radiography of nasal sinuses Dr. Chago Anderson Work Phone: Start: 04-30-2022 Dual energy X-ray absorptiometry Start: 04-30-2022 Screening mammography Plan of Treatment Date Care Activity Detail Author Start: 2030 RSV High Risk: (Elde rly (60+) or Population) (1 - 1-dose 75+ series) RSV High Risk: (Elderly (60+) or Population) (1 - 1-dose 75+ series) [facility] Start: 12-15-2025 Diabetes mellitus screening Diabetes Screening [facility] Start: 10-29-2025 End: 10-29-2025 Patient encounter procedure [facility] Start: 10-13-2025 Diabetes mellitus screening Diabetes Screening [facility] Start: 10-13-2025 Thyroid stimulating hormone measurement TSH Level [facility] Start: 07-26-2025 Polysomnography [facility] Start: 07-09-2025 Influenza vaccination Influenz a Vaccine (Season Ended) [facility] Start: 04-30-2025 End: 04-30-2025 Patient encounter procedure [facility] Start: 01-23-2025 End: 01-23-2025 Patient encounter procedure 01/23/2025 8:00 AM EDT Appointment [facility] [address] [facility] [address] [place] [address] [facility] Start: 01-10-2025 End: 01-10-2025 Patient encounter procedure 01/10/2025 3:00 PM EST Office Visit [facility] [address] [place] [id number] Lashonda Beltrán [place] [address] [place] [address] [facility] Start: 01-10-2025 End: 01-10-2026 Complete Pulmonary Function Test (Spirometry/DLCO/Lung Volumes) Complete Pulmonary Function Test (Spirometry/DLCO/Lung Volumes) PFT Routine On amiodarone therapy Expected: 01/10/2025 (Approximate), Expires: 01/10/2026 [facility] Service Area Work Phone: Comment on above: Expected: 01/10/2025 (Approximate), Expires: 01/10/2026 Start: 01-10-2025 End: 01-10-2026 Hepatic function 2000 panel - Serum or Plasma Hepatic Function Panel Lab Routine On amiodarone therapy Expected: 01/10/2025 (Approximate), Expires: 01/10/2026 [facility] Work Phone: Comment on above: Expected: 01/10/2025 (Approximate), Expires: 01/10/2026 Start: 01-10-2025 End: 01-10-2026 TSH with reflex to Free T4 if abnormal TSH with reflex to Free T4 if abnormal Lab Routine On amiodarone therapy Expected: 01/10/2025 (Approximate), Expires: 01/10/2026 [facility] Work Phone: Comment on above: Expected: 01/10/2025 (Approximate), Expires: 01/10/2026 Start: 11-28-2024 End: 11-28-2024 Patient encounter procedure 11/28/2024 10:40 AM EST Office Visit [facility] [address] [facility] [address] [place] [id number] Lashonda Beltrán [place] [address] [place], [place] [id number] [facility] Start: 11-21-2024 End: 11-21-2024 Patient encounter procedure 11/21/2024 2:00 PM EST Office Visit [facility] [address] [place] [address] Lashonda Beltrán [place] [address] [place] [address] [facility] Start: 09-27-2024 End: 03-13-2025 Basic metabolic 2000 panel - Serum or Plasma Basic Metabolic Panel Lab Routine Atrial fibrillation, unspecified type (Multi) Preop testing Expected: 09/27/2024, Expires: 03/13/2025 [facility] Service Area Work Phone: Comment on above: Expected: 09/27/2024 , Expires: 03/13/2025 Start: 09-27-2024 End: 03-13-2025 CBC panel - Blood by Automated count CBC Lab Routine Atrial fibrillation, unspecified type (Multi) Preop testing Expected: 09/27/2024, Expires: 03/13/2025 [facility] Work Phone: Comment on above: Expected: 09/27/2024 , Expires: 03/13/2025 Start: 07-09-2024 COVID-19 Vaccine ( season) COVID-19 Vaccine ( season) [facility] Start: 07-09-2024 Influenza vaccination Influenza Vacc ine (#1) [facility] Start: 06-28-2023 Ambulation without limitation [facility] Start: 06-28-2023 Elevation of head of bed [facility] Start: 06-28-2023 Medical regimen orde rs management [facility] Start: 06-28-2023 Patient discharge [facility] Start: 06-28-2023 Procedure discontinued [facility] Start: 06-28-2023 Taking patient vital signs [facility] Start: 06-28-2023 Vital signs measurements [facility] Start: 06-28-2023 Medication education [facility] Start: 01-25-2023 DTaP/Tdap/Td Vaccine s (3 - Td or Tdap) DTaP/Tdap/Td Vaccines (3 - Td or Tdap) [facility] Start: 04-30-2022 Dual energy X-ray absorptiometry Dexa Bone Density Study [facility] Work Phone: Start: 2020 Pneumococcal Vaccine : 65+ Years (1 of 1 - PCV) Pneumococcal Vaccine: 65+ Years (1 of 1 - PCV) [facility] Start: 2015 RSV High Risk: (Elde rly (60+) or Population) (1 - Risk 60-74 years 1-dose series) RSV High Risk: (Elderly (60+) or Population) (1 - Risk 60-74 years 1-dose series) [facility] Start: 2005 Pneumococcal vaccination Pneum ococcal Vaccine (1 of 1 - PCV) [facility] Start: 1995 Screening for malign ant neoplasm of breast Mammogram [facility] Start: 1973 Hepatitis C screening Hepatitis C Sc reening [facility] Start: 1955 Lipid panel Lipid Panel [facility] Start: 1955 Medicare Annual Well ness Visit Medicare Annual Wellness Visit (AWV) [facility] Start: 1955 Screening for malign ant neoplasm of colon [facility] Start: 1955 Screening for osteoporosis Bone Density Scan [facility] Start: 1955 Thyroid stimulating hormone measurement TSH Level [facility] Start: 1955 Yearly Adult Physical Yearly Adult P hysical [facility] Basic metabolic 2008 panel with ionized calcium - Serum or Plasma [facility] End: 01-10-2025 Cardiac device check - In Clinic [facility] Work Phone: Comment on above: Once for 1 Occurrenc es starting 01/10/2025 until 01/10/2025 End: 04-30-2025 Cardiac device check - In Clinic [facility] Work Phone: Comment on above: Once for 1 Occurrenc es starting 04/30/2025 until 04/30/2025 Cardiac device check - Inpatient Cardiac device check - Inpatient Implantable Cardiac Device Routine Status post placement of cardiac pacemaker 12/15/2024 9:40 AM EST [facility] Work Phone: End: 12-22-2024 Cardiac Device Check - Remote [facility] Work Phone: Comment on above: Once for 1 Occurrenc es starting 12/22/2024 until 12/22/2024 End: 10-22-2024 CBC panel - Blood by Automated count CBC Lab Routine Morning draw (Lab) for 1 Weeks starting 10/16/2024 until 10/22/2024, 1 completed [facility] Work Phone: Comment on above: Morning draw (Lab) f or 1 Weeks starting 10/16/2024 until 10/22/2024, 1 completed End: 12-14-2024 ECG 12 Lead [facility] Work Phone: Comment on above: Once for 1 Occurrenc es starting 12/14/2024 until 12/14/2024 ECG 12 lead (Clinic Performed) ECG 12 lead (Clinic Performed) ECG Routine Atrial fibrillation, unspecified type (Multi) 09/13/2024 1:00 PM [facility] Work Phone: ECG 12 lead (Clinic Performed) ECG 12 lead (Clinic Performed) ECG Routine Longstanding persistent atrial fibrillation (Multi) 11/15/2024 1:50 PM EST [facility] Work Phone: ECG 12 lead (Clinic Performed) ECG 12 lead (Clinic Performed) ECG Routine Atrial fibrillation, unspecified type (Multi) 01/10/2025 3:00 PM [facility] Work Phone: ECG 12 lead (Clinic Performed) ECG 12 lead (Clinic Performed) ECG Routine Persistent atrial fibrillation (Multi) 04/30/2025 2:20 PM EDT [facility] Work Phone: Electrocardiogram, 12-lead PRN ACS symptoms [facility] Work Phone: Comment on above: As needed until disc ontinued starting 10/13/2024 As needed until disc ontinued starting 10/13/2024, 4 completed Electrocardiogram, 12-lead PRN ACS symptoms Electrocardiogram, 12-lead PRN ACS symptoms ECG Routine 10/15/2024 1:05 PM [facility] Work Phone: Electrocardiogram, 12-lead PRN ACS symptoms Electrocardiogram, 12-lead PRN ACS symptoms ECG Routine 10/16/2024 11:00 AM [facility] Work Phone: Electrocardiogram, 12-lead PRN ACS symptoms Electrocardiogram, 12-lead PRN ACS symptoms ECG Routine 10/13/2024 6:25 PM [facility] Work Phone: End: 10-22-2024 Magnesium [Mass/volume] in Serum or Plasma Magnesium Lab Routine Morning draw (Lab) for 1 Weeks starting 10/16/2024 until 10/22/2024, 1 completed [facility] Work Phone: Comment on above: Morning draw (Lab) f or 1 Weeks starting 10/16/2024 until 10/22/2024, 1 completed Patient referral [facility] Work Phone: Polysomnography [facility] End: 10-22-2024 Renal function 2000 panel - Serum or Plasma Renal Function Panel Lab Routine Morning draw (Lab) for 1 Weeks starting 10/16/2024 until 10/22/2024, 1 completed [facility] Work Phone: Comment on above: Morning draw (Lab) f or 1 Weeks starting 10/16/2024 until 10/22/2024, 1 completed [facility] Payers Date Payer Category Payer Self-pay [id number] 2020 Medicare MEDICARE PART A AND B [id number] 5 2020 Medicare supplementa l policy (as second payer) [facility] MEDICARE SELECT SUPPLEMENT [id number] 5 2020 Medicare [id number] 2009 Unknown [id number] 1955 Unknown [id number] 2.16.840.1.620054.3.579 .2.1244 1955 Unknown [id number] 2.16.840.1.802694.3.579 .2.1244 1955 Unknown [id number] 2.16.840.1.393206.3.579 .2.1241 1955 Unknown [id number] 2.16.840.1.039621.3.579 .2.1241 1955 Unknown [id number] 2..840.1.734250.3.579 .2.1241 1955 Unknown [id number] 2.16.840.1.873013.3.579 .2.1241 1955 Unknown [id number] 2.840.1.138001.3.579 .2.1241 1955 Unknown [id number] 2.16840.1.089008.3.579 .2.1241 1955 Unknown [id number] 2.840.1.462330.3.579 .2.1241 1955 Unknown [id number] 2.16.840.1.016247.3.579 .2.1242 Unknown [id number] 2.16840.1.512124.3.579 .2.462 Unknown [id number] 2.16.840.1.881828.3.579 .2.462 Unknown [id number] 2.16.840.1.950621.3.579 .2.462 Unknown [id number] 2.16.840.1.790742.3.579 .2.462 Unknown [id number] 2.16.840.1.939765.3.579 .2.462 Unknown [id number] 2.16.840.1.802796.3.579 .2.462 Unknown [id number] 2.16.840.1.505456.3.579 .2.462 Unknown [id number] 2.16.840.1.031681.3.579 .2.462 Unknown [id number] 2.16.840.1.171832.3.579 .2.462 Unknown [id number] 2.16.840.1.572245.3.579 .2.462 Unknown [id number] 2.16.840.1.105837.3.579 .2.462 Unknown [id number] 2.16.840.1.699713.3.579 .2.462 Unknown [id number] 2.16.840.1.668981.3.579 .2.462 Unknown [id number] 2.16.840.1.194458.3.579 .2.462 Unknown [id number] 2.16.840.1.687424.3.579 .2.462 Unknown [id number] 2.16.840.1.202378.3.579 .2.462 Social History Date Type Detail Facility Tobacco smoking stat us SDIS Unknown if ever smoked [facility] Work Phone: Start: 1955 Sex Assigned At Female [facility] Start: 06-21-2023 End: 02-02-2024 Tobacco smoking status NHIS Unknown if ever smoked [facility] Start: 07-13-2024 End: 09-13-2024 Tobacco smoking status NHIS Never smoked tobacco [facility] Work Phone: Start: 09-13-2024 Tobacco use and exposure Smokeless tobacco non-user [facility] Work Phone: Start: 09-13-2024 End: 12-15-2024 History of Social function [facility] Start: 09-13-2024 End: 12-15-2024 Tobacco use panel [facility] Start: 1955 Sex assigned at Not on file [facility] Work Phone: Start: 09-03-2024 End: 01-10-2025 Exposure to SARS-CoV-2 (event) Not sure [facility] Has the [employer], [employer], oil, or water company threatened to shut off services in your home in past 12Mo No [facility] Frequency of Communication with Friends and Family Not on file [facility] Work Phone: Are you now , , , , never or living with a partner? [facility] Work Phone: How often to you hav e a drink containing alcohol? Monthly or less [facility] How many standard drinks containing alcohol do you have on a typical day? 1 or 2 [facility] Work Phone: How often do you hav e 6 or more drinks on 1 occasion? Never [facility] Work Phone: How hard is it for y ou to pay for the very basics like food, housing, medical care, and heating Not very hard [facility] Work Phone: (I/We) worried abdifatah er (my/our) food would run out before (I/we) got money to buy more. Never true [facility] Work Phone: Start: 12-14-2024 End: 04-30-2025 Alcoholic beverage intake Current drinker of alcohol (finding) [facility] Work Phone: Start: 12-14-2024 Alcohol Comment on vacation [facility] Work Phone: Start: 12-14-2024 Gender identity Identifies as female gender (finding) [facility] Work Phone: Start: 01-25-2025 End: 02-01-2025 Sex Female (finding) [facility] NEGATED: Highlighted row [facility] Medical Equipment Procedure Code Equipment Code Equipment Origin al Text Equipment Identifier Dates FESS (functional endoscopic sinus surgery) Plant polysaccharide haemostatic agent, bioabsorbable ([id number] Start: 06-28-2023 Lead, Capsurefix Novus, 58 Cm - [id number] Start: 10-13-2024 Lead, Pacemaker, Ultipace 58cm - [id number] - [id number] Start: 12-14-2024 Lead, Pacemaker, Ultipace 52cm - [id number] - [id number] Start: 12-14-2024 Pacemaker, Gener ator, Dual Assurity Mri - [id number] - [id number] Start: 12-14-2024 Comment on above: Description: DDD 70- 120bpm Goals Date Patient Goal Desired Activity /State Functional Status Date Assessment Result Facility 12-15-2024 Are you deaf, or do you have serious difficulty hearing No 12/15/2024 11:29 AM Hannah Saba, DANIEL No [facility] Work Phone: 12-15-2024 Are you blind, or do you have serious difficulty seeing, even when wearing glasses No 12/15/2024 11:29 AM Hannah Saba, DANIEL No [facility] Work Phone: 12-15-2024 Do you have serious difficulty walking or climbing stairs No 12/15/2024 11:29 AM Hannah Saba, DANIEL No [facility] Work Phone: 12-15-2024 Do you have difficul ty dressing or bathing No 12/15/2024 11:29 AM Hannah Saba, DANIEL No [facility] Work Phone: 12-15-2024 Because of a physica l, mental, or emotional condition, do you have difficulty doing errands alone such as visiting a physician's office or shopping No 12/15/2024 11:29 AM Hannah Saba, DANIEL No [facility] Work Phone: Mental Status Date Assessment Result Facility 12-15-2024 Because of a physica l, mental, or emotional condition, do you have serious difficulty concentrating, remembering, or making decisions No 12/15/2024 11:29 AM Hannah Saba, RN No [facility] Work Phone: 06-28-2023 Cognitive function Voice/Name [facility] Work Phone: Clinical Notes 06-28-2023 to 05-03-2025 Note Date & Type Note Facility 05-03-2025 Evaluation note Diagnosis Onset Date Resolution Hx of cardiac pacemaker acute J une 2024 7:49am PAF (paroxysmal atrial fibrillation) acute May 03, 2025 7:49am Persistent atrial fibrillation acute May 03, 2025 7:49am Hypertension chronic May 03, 025 7:49am [facility] Work Phone: 1(869) 807-665306-26-2025 Evaluation note* Diagnosis Onset Date Resolution Status Admit Date Hx of cardiac pacemaker acute [facility] 20[facility] 7:49am PAF (paroxysmal atrial fibrillation) acute May 03, 2025 7:49am Persistent atrial fibrillation acute May 03, 2025 7:49am Hypertension chronic May 03, 025 7:49am Hx of cardiac pacemaker acute A ug2024 7:43am PRIETO (obstructive sleep apnea) acute June 28, 2025 7:43am PAF (paroxysmal atrial fibrillation) acute June 28 7:43am Hypertension chronic June 28, 2025 7:43am [facility] Work Phone: 1(765) 361-320606-23-2025 History of Present illness Narrative* Lashonda Beltrán [...] been made to prevent any error in senior medical transcriptionist, however minor errors may be present [1] No Known Allergies documented in this [facility] Work Phone: 1(200) 280-762203-05-2025 History of Present illness Narrative* Lashonda Beltrán [...] been made to prevent any error in senior medical transcriptionist, however minor errors may be present documented in this [facility] Work Phone: 1(925) 572-803102-07-2025 Nurse Note* Jodi Nugent RN - 12/15/2024 [...] removed. New scripts verified with home pharmacy. [facility]02-07-2025 Nurse Note* Jodi Nugent RN - [...] verified with home pharmacy. [facility]: 1(174) 431-583602-07-2025 History of Present illness Narrative* Hannah Caba [...] were you homeless or living in a fpc (including now)? N Transportation Needs In the past 12 months, has lack of transportation kept you from medical appointments or from getting medications? no In the past 12 months, has lack of transportation kept you from meetings, work, or from getting things needed for daily living? No Patient Choice Provider Choice list and CMS website (https://medicare.gov/care-compare#search) for post-acute Quality and Resource Measure Data were provided and reviewed with: Patient Patient / Family choosing to utilize agency / facility established prior to hospitalization No Stroke Family Assessment Stroke Family Assessment Needed No Intensity of Service Intensity of Service 0-30 min Met with patient at bedside and explained my role as medicare nurse. She lives in the house with her . She is independent with her care at home. She drives. Patient denies use of any ambulatory devices. No oxygen in use at home, no HD. Her PCP is Dr. David Anderson ) and she seen him one month ago. Pharmacy she uses is [facility] in [place]. She is able to afford medications and to get to her doctors appointments. Patient had Dual pacemaker implanted yesterday. Patient denies any needs going home. Her is driving her home. 1135 Patient is medically ready for discharge They are being discharged to: Home __Husband will pick patient up [facility] N/A Patient denies any other needs [...] visiting the doctor? N documented in this [facility] Work Phone: 1([phone]) 443-440602-07-2025 Plan of care note* Care Plan - [...] stable for the duration of the shift [facility]02-07-2025 Miscellaneous Notes* Care Plan - Edwige [...] nutritional needs Outcome: Progressing [facility] Phone: 1([phone]) 364-898102-06-2025 Plan of care note* Care Plan - [...] appropriate for maintaining nutritional needs Outcome: Progressing [facility] Work Phone: 1([phone]) 546-552802-06-2025 NoteProcedures: Implant of dual chamber PPM (48689), cardioversion (68053) A left infraclavicular incision yielded access for [...] was tolerated well and there were no complications.[id number] Hospital Discharge instructions* Discharge Instructions* Helen Ortiz, [employer] PIPE SUPERVISOR-LICENSED NURSING ASSISTANT - 12/14/2024 1:13 PM EST Images from [...] their own Call the Device Clinic at [phone] if you have any questions about your [...] your device ID card to the airport information technology security manager. The detector wand may be used below waist level and to inspect your shoes. Read the patient booklet for more information. You may call the device clinic or the patient services department of the device journalism internship with questions about specific electrical appliances and interference problems. It is your responsibility to make and keep appointments. After each visit on your way out, make an appointment for your next visit. Please follow the recommendations of your doctor for the frequency of appointments. Your Appointment: Date: Time: [facility] [id number] [place] [address] [address] [facility] [address] [place] [address] [facility] [address] [place] [address] [facility] [address] [place] [address] [facility] [address] [place] [address] [facility] [address] [place] [address] [facility] [address] [place], [place] [address] [facility] [address] [place] [address] [facility] [phone] [place] [address] [facility] [address] [place] [address] [facility] [address] [place], [place] [address] [facility] [address] [place] [address] [facility] [address] [place] [address] [facility] ([facility]) [address] [place] [address] [facility] [address] [facility] [place], [place] [address] Appointment [phone] Device Clinic: [phone] (this is Not an emergency number) Frequent [...] Other Sources of Information: Device Clinic Nurses: [phone] Patient Services Department of the journalism internship of your ICD The Internet holds an abundance of information. Some internet sites of interest: www.medtronic.Socialare www.Chicory.Socialare www.[employer].Socialare www.heartLincor Solutionsythm.Socialare www.[employer].Socialare This info is a general resource. It is not meant to replace your health care provider s advice. Ask your doctor or health care team any questions. Always follow their instructions. * Attachments The following attachments cannot be sent through Care Everywhere. * Amiodarone, ADULT (Mosotho) * Doxycycline, ADULT (Mosotho) * Pacemaker Insertion Discharge Instructions (Mosotho) * Tramadol, ADULT (Mosotho) documented in this [facility] Work Phone: [phone]) 281-280102-06-2025 History and physical note* JOSH Schmitt - [...] Ablation A-Fib; Surgeon: Lashonda Beltrán MD; Location: [place] [address] Cardiac Nonfarm Animal Caretaker; Service: Electrophysiology; Laterality: N/A; carto CARDIAC ELECTROPHYSIOLOGY PROCEDURE N/A 10/13/2024 Procedure: Temporary Pacemaker Insertion; Surgeon: Lashonda Beltrán MD; Location: [place] [address] Cardiac Nonfarm Animal Caretaker; Service: Electrophysiology; Laterality: N/A; DILATION AND CURETTAGE [...] Recent Labs 10/16/24 0150 10/15/24 0333 10/14/24 0610/13/241933 WBC 7.2 8.2 7.3 10.9 HGB 10.6* [...] LDL, VLDL, TRIG, NHDL in the last 72479 hours. Cardiac No lab exists for component: CK, CKMBP Hemoglobin A1C: No results for input(s): HGBA1C in the last 32079 hours. TSH/ Free T4: Recent Labs 10/13/24 1934 TSH 5.02* Iron: No results for input(s): FERRITIN, TIBC, IRONSAT, BNP in the last 57871 hours. Coag: ABO: No results found for: [...] QT Interval 354 QTC Calculation(Bazett) 435 R Shubert 26 T Shubert 48 QRS Count 15 Q Onset 221 [...] dc home tomorrow 12/13/24 on prophylactic antibiotics RETAIL TEAM LEADER discussed with Dr. Beltrán regarding plan of care/ discharge plan I spent 30 minutes in the professional and overall care of this patient. JOSH Schmitt [facility] Work Phone: 1(684) 134-933802-06-2025 History and physical note* JOSH Schmitt - [...] Ablation A-Fib; Surgeon: Lashonda Beltrán MD; Location: [place] [address] Cardiac Nonfarm Animal Caretaker; Service: Electrophysiology; Laterality: N/A; carto CARDIAC ELECTROPHYSIOLOGY PROCEDURE N/A 10/13/2024 Procedure: Temporary Pacemaker Insertion; Surgeon: Lashonda Beltrán MD; Location: [place] [address] Cardiac Nonfarm Animal Caretaker; Service: Electrophysiology; Laterality: N/A; DILATION AND CURETTAGE [...] Recent Labs 10/16/24 0150 10/15/24 0340 10/14/24 0610/13/24 1934 NA 139 137 134* 139 K 3.9 [...] LDL, VLDL, TRIG, NHDL in the last 88333 hours. Cardiac No lab exists for component: CK, CKMBP Hemoglobin A1C: No results for input(s): HGBA1C in the last 81160 hours. TSH/ Free T4: Recent Labs 10/13/241933 TSH 5.02* Iron: No results for input(s): FERRITIN, TIBC, IRONSAT, BNP in the last 16482 hours. Coag: ABO: No results found for: [...] QT Interval 354 QTC Calculation(Bazett) 435 R Shubert 26 T Shubert 48 QRS Count 15 Q Onset 221 [...] dc home tomorrow 12/13/24 on prophylactic antibiotics RETAIL TEAM LEADER discussed with Dr. Beltrán regarding plan of care/ discharge plan I spent 30 minutes in the professional and overall care of this patient. JOSH Schmitt documented in this [facility] Work Phone: 1(244) 271-159102-05-2025 Evaluation note* Diagnosis Onset Date Resolution Status Admit Date Persistent atrial fibrillation acute December 13, 2024 8:29am Hypertension chronic December 8:29am [facility] Work Phone: 1(552) 163-611801-08-2025 History of Present illness Narrative* Lashonda Beltrán [...] been made to prevent any error in senior medical transcriptionist, however minor errors may be present documented in this [facility] Work Phone: 1(574) 496-296112-09-2024 History of Present illness Narrative* Keisha Madrid, PT - 10/16/2024 4:09 PM EST Physical Therapy Physical Therapy Evaluation & Treatment Patient Name: Radha Thomas Department: [facility] Room: Today's Date: 10/16/2024 Time Calculation Start Time: [...] Prior Function Per Pt/Caregiver Report Level of [place]: Independent with ADLs and functional transfers ADL Assistance: Independent Homemaking Assistance: Independent Ambulatory Assistance: Independent (Community ambulator, no AD, denies recent falls) Vocational: Retired (Used to work at [employer] Leisure: (+) drives, likes to be active [...] noted but no acute LOB Outcome Measures: [facility] Basic Mobility Turning from your back [...] only Sitting: Supervision or set-up only Transfer Uru-da-Fgqna: Supervision or set-up only Transfer Vgufko-me-Nnb: Supervision or set-up only Total Score: 25 [...] Subjective Data: Feels ok, in AF since 12/7 PM, no palpitations, pericarditis chest pain better. [...] result verified on 10/15/2024 0304 on specimen/case [id number] called with component [facility] for procedure Troponin I, High Sensitivity with [...] for AF complicated by sinus arrest (ventricular iiokgy22h with retrograde conduction) s/p temp RV lead placement for TVP 10/13. 12 PM - sinus 60s -> AF 100s [...] [place] [phone] on weekdays 7AM - 6PM and weekends 7AM - 2PM, [place] [phone] at all other times. The EP device nurse can be reached at pager [phone] during regular business hours M-F. Peripheral IV [...] lab after undergoing elective Afib ablationcomplicated by [facility] s/p TVP. - Payer: Medicare, [place] Supplemental . -Support System: Spouse, daphnieren - Planned Disposition: Pending medical outcome and [...] you for this consultation. EP consult pager: [phone] (weekday 7AM-6PM, weekend 7AM-2PM, other times: [phone]) Peripheral IV 10/13/24 20 G Proximal;Right;Ventral Forearm (Active) Site Assessment Clean;Dry;Intact 10/14/24399 Dressing Type Transparent 10/14/24399 Line Status Flushed 10/14/24399 Dressing Status Clean;Dry;Occlusive 10/14/24399 Number of days: 1 Arterial Line 10/13/24 Left Radial (Active) Site Assessment Clean;Dry;Intact 10/14/24399 Line Status Pulsatile blood flow 10/14/24399 Art Line Waveform Appropriate 10/14/24399 Art Line Interventions Zeroed and calibrated;Leveled;Connections checked and tightened;Flushed per protocol 10/14/24399 Color/Movement/Sensation Capillary refill less than 3 sec;Distal pulses palpable 10/14/24399 Dressing Type Antimicrobial patch;Transparent 12/07/24 0400 Dressing Status Clean;Dry;Occlusive 10/14/24 0400 Number of days: 1 Pacer Wires (Active) Pacer Wire Status Ventricular wires connected to pacer 10/14/24 0800 Site Assessment Clean;Dry;Intact 10/14/24 0800 How Pacer Wires are Secured Ventricular wires secured to dressing 10/14/24 0800 Dressing Status Clean;Dry;Intact 10/14/24 0800 Number of days: 1 Code Status: Full Code I spent 30 minutes in the professional and overall care of this patient. Marion Carrillo MD Cosigned by Lashonda Beltrán MD at 10/16/2024 8:23 AM EST documented in this [facility] Work Phone: 1(421) 482-942512-09-2024 Plan of care note* Care Plan - [...] and maintenance of device (specify) Outcome: Progressing [facility]12-09-2024 Miscellaneous Notes* Care Plan - Mary [...] next dressing change Outcome: Progressing Flowsheets (Taken 10/16/2024 0426) Decreased wound size/increased tissue granulation at next dressing change: Promote sleep for wound healing Goal: Participates in plan/prevention/treatment measures Outcome: Progressing Flowsheets (Taken 10/16/2024 0426) Participates in plan/prevention/treatment measures: Elevate heels Goal: Prevent/manage excess moisture Outcome: Progressing Flowsheets (Taken 10/16/2024 0426) Prevent/manage excess moisture: Moisturize dry skin Goal: [...] Prevent/minimize sheer/friction injuries Outcome: Progressing Flowsheets (Taken 10/14/2024 0304) Prevent/minimize sheer/friction injuries: Utilize specialty bed per [...] Attending: * Lashonda Beltrán - Primary Resident/Fellow/Other Agile Coach: Surgeons and Role: * Adria Luciano MD - Fellow Indications: Pre-op Diagnosis * Unspecified atrial fibrillation (Multi) [I48.91] Post-procedure diagnosis: Post-op Diagnosis * Unspecified atrial fibrillation (Multi) [I48.91] Procedure(s): Ablation A-Fib 85858 - [place] COMPRE EP EVAL ABLTJ ATR [...] Pacemaker Lead, Renea Estes, 58 Cm - [id number] - Implanted Inventory item: LEAD, RENEA ESTES, 58 CM Model/Cat number: 5076-58 Serial number: [id number] Porter Used Car Lot: [employer] Lot number: [id number] Device identifier: [id number] Implant Date: 10/13/2024 GUDID Information Request status Successful Brand name: Doraurefix Nov Version/Model: 5076-58 Company name: [employer] MRI safety info as of 10/13/24: Labeling does not contain MRI Safety Information Contains dry or latex rubber: No GMDN P.T. name: Endocardial/interventricular septal pacing lead As of 10/13/2024 Status: Implanted Plan: -Admit to CICU -Continue apixaban 5 twice daily, starting tonight -2 hours bedrest and rracag-zb-vbqec can be removed if no oozing -Rhythm checks throughout the weekend, potentially may need pacemaker if no return of rhythm -do not attempt any removal of the screw in lead without EP approval -start protonix 40 daily for 30 days -hold flecainide and other BB Estimated Blood Loss: 5 mL Anesthesia: General Anesthesia Staff: Anesthesiologist: Vincent Nix MD; Paola Del Angel MD PLANNER INTERNSHIP: Jarred Guerrero APRN-PLANNER INTERNSHIP Any Specimen(s) Removed: No specimens collected during this procedure. Disposition: CICU Electronically signed by: Adria Luciano MD, 10/13/2024 5:23 PM Cosigned by Lashonda Beltrán MD at 10/13/2024 11:16 PM EST * Hospital Course - Huy Sun PA-C - 10/12/2024 11:17 AM EST documented in this [facility] Work Phone: 1(373) 309-740312-09-2024 Plan of care note* Care Plan - [...] and maintenance of device (specify) Outcome: Progressing [facility]12-08-2024 Plan of care note* Care Plan [...] and maintenance of device (specify) Outcome: Progressing [facility]12-08-2024 Plan of care note* Care Plan [...] Goal: Care and maintenance of device (specify) 10/15/2024 035 by Paula Moore RN Outcome: Progressing 10/15/2024354 by Paula Moore RN Outcome: Progressing The clinical goals for the shift include Patient will remain hemodynamically stable through the shift [facility]12-07-2024 Plan of care note* Care Plan [...] Goal: Free from fall injury Outcome: Progressing [facility] Work Phone: 1(113) 774-725912-06-2024 Note* Post-Procedure Note - Adria Luciano MD - 10/13/2024 1:29 PM EST Physician Transition of Care Summary Invasive Cardiovascular Lab Procedure Date: 10/13/2024 Attending: * Lashonda Beltrán - Primary Resident/Fellow/Other Agile Coach: Surgeons and Role: * Adria Luciano MD - Fellow Indications: Pre-op Diagnosis * Unspecified atrial fibrillation (Multi) [I48.91] Post-procedure diagnosis: Post-op Diagnosis * Unspecified atrial fibrillation (Multi) [I48.91] Procedure(s): Ablation A-Fib 95971 - WY COMPRE EP EVAL ABLTJ ATR [...] Pacemaker Lead, Capsurefix Novus, 58 Cm - [id number] - Implanted Inventory item: LEAD, CAPSUREFIX NOVUS, 58 CM Model/Cat number: 5076-58 Serial number: [id number] Porter Used Car Lot: [employer] Lot number: [id number] Device identifier: [id number] Implant Date: 10/13/2024 GUDID Information Request status [...] daily, starting tonight -2 hours bedrest and kpbzaa-do-kvvsc can be removed if no oozing -Rhythm checks throughout the weekend, potentially may need pacemaker if no return of rhythm -do not attempt any removal of the screw in lead without EP approval -start protonix 40 daily for 30 days -hold flecainide and other BB Estimated Blood Loss: 5 mL Anesthesia: General Anesthesia Staff: Anesthesiologist: Vincent Nix MD; Paola Del Angel MD PLANNER INTERNSHIP: Jarred Guerrero APRN-PL[employer]NER INTERNSHIP Any Specimen(s) Removed: No specimens collected during this procedure. Disposition: CICU Electronically signed by: Adria Luciano MD, 10/13/2024 5:23 PM Cosigned by Lashonda Beltrán MD at 10/13/2024 11:16 PM EST [facility] Work Phone: 1(705) 256-188512-06-2024 Attending History and physical note* Adria Luciano [...] been made to prevent any error in senior medical transcriptionist, however minor errors may be present [facility] Work Phone: 1(117) 477-692212-06-2024 History and physical note* Adria Luciano MD [...] been made to prevent any error in senior medical transcriptionist, however minor errors may be present documented in this [facility] Work Phone: 1(217) 942-615112-06-2024 Hospital Discharge instructions* Discharge Instructions* Rainer Tay [...] too low. He was sent to the [facility] given this temporary pacing device. Over [...] without issue. Follow-up as scheduled with your ict help desk technician, their office will call you and schedule you for your follow up appointment. Medications at Discharge: -Pantoprazole 40 mg twice daily (acid suppression medication) -Colchicine 0.6 mg twice daily for the next 21 days -Continue taking your home Metoprolol 25 mg twice daily -STOP TAKING YOUR HOME FLECAINIDE, PLEASE FOLLOW UP WITH YOUR BIAS CUTTING MACHINE OPERATOR TO DISCUSS RESTARTING MEDICATION. INSTRUCTIONS AFTER ABLATION [...] up with your primary care physician, primary instrumentation chemist, and any other specialists you normally see. [...] of these symptoms become excessive, contact your ict help desk technician or go to the emergency room. [...] after ablation as scheduled [facility] Phone: 1(160) 461-695212-05-2024 Hospital Note* Hospital Course - Huy Sun PA-C - 10/12/2024 11:17 AM EST [facility] Work Phone: 1([phone]) 378-472711-06-2024 History of Present illness Narrative* Lashonda Beltrán [...] been made to prevent any error in senior medical transcriptionist, however minor errors may be present documented in this [facility] Work Phone: 1(854) 967-887308-21-2023 Discharge summary Author Troy Carvalho [facility] June 28, 2023 7:40am Note Date/Time June 28, 2023 7: 40am [facility] Medical Records Department [address] [place] [address] Discharge Summary 06/28/23 0739 MR#: [id number] Acct: [id number] Name: RADHA THOMAS Rep #[id number] : 1955 67 From: Troy Carvalho MD PCP: Dr. Connor Anderson MD Status: REG SDC Location: [place] [address] Providers Primary Care Physician: Dr. Connor Anderson [...] can be placed): Home, Self Care 06/28/23 0772 <Electronically signed by Troy Carvalho MD> Cosigner Signature (if applicable): CC: Dr. Connor Anderson MD; Dr. Troy Carvalho MD~ Signed [facility] Work Phone: [phone]) 422-597408-21-2023 [facility] noteNo assessment information availableT[facility]car[facility] Work Phone: Evaluation note* Diagnosis Onset Date Resolution Status Afib acute Hypertension chronic [facility] Work Phone: Evaluation note* Diagnosis Atrial fibrillation, unspecified type (Multi)- Primary Preop testing Unspecified pre-operative examination documented in this encounter [facility] Work Phone: Evaluation note* Diagnosis Heart [...] (Multi) Atrial fibrillation documented in this encounter [facility] Work Phone: Evaluation note* Diagnosis Longstanding persistent atrial fibrillation (Multi)- Primary documented in this encounter [facility] Work Phone: Evaluation note* Diagnosis Status post placement of cardiac pacemaker- Primary Longstanding persistent atrial fibrillation (Multi) Conduction disorder, unspecified Status post placement of cardiac pacemaker Persistent atrial fibrillation (Multi) Atrial fibrillation Longstanding persistent atrial fibrillation (Multi) Conduction disorder, unspecified documented in this encounter [facility] Work Phone: Evaluation note* Diagnosis Atrial fibrillation/flutter (Multi) documented in this encounter [facility] Work Phone: Evaluation note* Diagnosis On amiodarone therapy- Primary Atrial fibrillation, unspecified type (Multi) documented in this encounter [facility] Work Phone: Evaluation note* Diagnosis Atrial fibrillation, unspecified type (Multi) Presence of cardiac pacemaker Cardiac pacemaker in situ documented in this encounter [facility] Work Phone: Evaluation note* Diagnosis Persistent atrial fibrillation (Multi)- Primary Atrial fibrillation On amiodarone therapy documented in this encounter [facility] Work Phone: Evaluation note* Diagnosis Atrial fibrillation, unspecified type (Multi) Presence of cardiac pacemaker Cardiac pacemaker in situ documented in this encounter [facility] Work Phone: Evaluation note* Diagnosis Onset Date Resolution Status Admit Date Hx of cardiac pacemaker acute J 2024 7:49am PAF (paroxysmal atrial fibrillation) acute May 03, 2025 7:49am Persistent atrial fibrillation acute May 03, 2025 7:49am Hypertension chronic May 03 7:49am [facility] Work Phone: Reason for referral (narrative)No reason for referral information [facility]WWay[facility] Work Phone: Reason for visit Narrative* Auth/Cert Specialty Diagnoses / Procedures Referred By Contac t Referred To Contact Diagnoses Unspecified atrial fibrillation (Multi) Procedures WY COMPRE EP EVAL ABLTJ ATR FIB PULM VEIN ISOLATION Ablation [place] L[place]onda [place]án [place] [address] [place] [address] Phone: tel: fax: [facility] [place] [address] [place] [id number] [place] [address] Phone: tel: fax: Referral ID Status Reason Start Date Expiration Date Visits Re quested Visits Authorized [id number] 1 1 [facility] Work Phone: Reaujw for visit Narrative* Auth/Cert Specialty Diagnoses / Procedures Referred By Contac t Referred To Contact Diagnoses Longstanding persistent atrial fibrillation (Multi) Conduction disorder, unspecified Longstanding persistent atrial fibrillation (Multi) [I48.11] Conduction disorder, unspecified [I45.9] Procedures WY INS NEW/RPLCMT PRM PM W/TRANSV ELTRD ATRIAL&VENT WY CARDIOVERSION ELECTIVE ARRHYTHMIA EXTERNAL Cardioversion PPM IMPLANT DUAL Lashonda Beltrán MD [id number] [place], [place] [address] [place] [address] Phone: tel: fax: [facility] [address] [place] [address] Phone: tel: fax: Referral ID Status Reason Start Date Expiration Date Visits Re quested Visits Authorized [id number] 1 1 [facility] Work Phone: reason for visit Narrative* Imaging (Routine) - Authorized Specialty Diagnoses / Procedures Referred By Roxannaac t Referred To Contact Cardiology Diagnoses Atrial fibrillation/flutter (Multi) Procedures Cardiac Device Check - Remote Lashonda Beltrán [place] [id number] [place], [place] [address] [place] [id number] Phone: tel: fax: Referral ID Status Reason Start Date Expiration Date Visits Requested Visits Authorized [id number] Authorized Perform Procedure 12/22/2024 12/22/2025 7 7 [facility] Work Phone: reason for visit Narrative* Imaging (Routine) - Authorized Specialty Diagnoses / Procedures Referred By Roxannaac t Referred To Contact Cardiology Diagnoses Atrial fibrillation, unspecified type (Multi) Presence of cardiac pacemaker Procedures Cardiac device check - In Clinic Lashonda Beltrán [place] [id number] [place], [place] [address] [place] [address] Phone: tel: fax: Referral ID Status Reason Start Date Expiration Date Visits Requested Visits Authorized [id number] Authorized Perform Procedure 01/10/2025 01/10/2026 1 1 [facility] Work Phone: reason for visit Narrative* Cardiovascular (Routine) - Authorized Specialty Diagnoses / Procedures Referred By Roxannaac t Referred To Contact Diagnoses Persistent atrial fibrillation (Multi) Procedures ECG 12 lead (Clinic Performed) Lashonda Beltrán [place] [address] [place] [address] Phone: tel: fax: Referral ID Status Reason Start Date Expiration Date V isits Requested Visits Authorized [id number] Authorized 04/30/2025 04/30/2026 1 1 [facility] Work Phone: Reason for visit Narrative* Imaging (Routine) - Authorized Specialty Diagnoses / Procedures Referred By Contac t Referred To Contact Cardiology Diagnoses Atrial fibrillation, unspecified type (Multi) Presence of cardiac pacemaker Procedures Cardiac device check - [place]onda [place]án [place] [address] [place] [address] Phone: tel: fax: Referral ID Status Reason Start Date Expiration Date Visits Requested Visits Authorized [id number] Authorized Perform Procedure 12/13/2024 12/13/2025 1 1 [facility] Work Phone: Chief Complaint and Reason for Visit Chief Complaint Admit Date 3 M FU PER MMM May 03, 2025 7:49 am INT LAB ORDER May 19, 2025 9:22 am Reason for Visit Admit Date Hx of cardiac pacemaker May 03, 2025 7:49am PAF (paroxysmal atrial fibrillation) Marc 2024 7:49am Persistent atrial fibrillation April 7:49am Hypertension May 03, 2025 7:49 am Chief Complaint SCREENING Chief Complaint xray ABN SINUS X-RAY, SINUS MASS Chief Complaint xray ABN SINUS X-RAY, SINUS MASS SCREENING Chief Complaint xray ABN SINUS X-RAY, SINUS MASS SCREENING ENDOSCOPIC INTRANASAL Chief Complaint NEW ONSET AFIB (JL SEN) R00.2, AFIB 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 Reason for Visit Afib Hypertension Chief Complaint Admit Date 4 M FU December 13, 2024 8 :29am 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 [facility] 2024 6:35am Reason for Visit Admit Date Persistent atrial fibrillation December 13, 2024 8:29am Hypertension December 13, 2024 8 :29am Chief Complaint Admit Date 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 [facility] 2024 6:35am Other prison (current) drug therapy [facility] 2024 7:00am 3 M FU PER MMM May 03, 2025 7:49 am Chief Complaint Admit Date 3 M FU PER MMM May 03, 2025 7:49 am INT LAB ORDER May 19, 2025 9:22 am E ORDERS/COPY RESULTS TO LASHON LAW June 22, 2025 7:38am 2 M FU June 28, 2025 7: 43am Reason for Visit Admit Date Hx of cardiac pacemaker May 03, 2025 7:49am PAF (paroxysmal atrial fibrillation) Marc e 2024 7:49am Persistent atrial fibrillation April 7:49am Hypertension May 03, 2025 7:49 am Hx of cardiac pacemaker June 28 7:43am PRIETO (obstructive sleep apnea) June 7:43am PAF (paroxysmal atrial fibrillation) Jun us2024 7:43am Hypertension June 28, 2025 7: 43am Chief Complaint Admit Date 3 M FU PER MMM May 03, 2025 7:49 am INT LAB ORDER May 19, 2025 9:22 am E ORDERS/COPY RESULTS TO LASHON LAW June 22, 2025 7:38am 2 M FU June 28, 2025 7: 43am SCREENING July 10, 2025 3:07pm Advance Directives No Advanced Directives Records Found Advance Directive Response Recorded Date/ Time Name of Medical Power of Construction Job Titles June 21, 2023 9:47am Living Will Yes June 21 9:47am Power of Construction Job Titles Yes June 21, 023 9:47am Advance Directive Response Recorded Date/ Time Living Will Yes June 21 9:47am Power of Construction Job Titles Yes June 21, 2 023 9:47am Date [...] Anderson MD Primary Care Provider Activ e Thais Lobo NP-C Attending Provider Active Team Status: Inactive Member [...] Inactive Member Role Status Dates Dr. David Andesron MD Primary Care Provider Acti ve Dr. Storm Ryan MD Attending Provider, Referring Pro vider Active Preparation Room Manager Relationship Specialty Start Date End Date Generic Provider, [place] [address] PCP - General Enrollment Eligibility Representative 09/13/24 Preparation Room Manager Relationship Specialty Start Date End Date Generic Provider, [place] [address] PCP - General Enrollment Eligibility Representative 09/13/24 Preparation Room Manager Relationship Specialty Start Date End Date Generic Provider, No [place] [address] PCP - General Enrollment Eligibility Representative 09/13/24 Preparation Room Manager Relationship Specialty Start Date End Date Generic Provider, [place] [address] PCP - General Enrollment Eligibility Representative 09/13/24 12/14/24 Daivd Anderson MD [address] [facility] [address] [place] [address] PCP - General Family Medicine 12/15/24 Preparation Room Manager Relationship Specialty Start Date End Date Generic Provider, [place] [address] PCP - General Enrollment Eligibility Representative 09/13/24 12/14/24 Preparation Room Manager Relationship Specialty Start Date End Date David Anderson MD [address] [facility] [address] [place] [address] PCP - General Family Medicine 12/15/24 Preparation Room Manager Relationship Specialty Start Date End Date David Anderson MD [address] [facility] [address] [place] [address] PCP - General Family Medicine 12/15/24 Preparation Room Manager Relationship Specialty Start Date End Date David Anderson MD [address] [facility] [address] [place] [address] PCP - General Family Medicine 12/15/24 Team [...] 06, 2024 End: December 06, 2024 LASHONDA, MAURITIAN Attending Provider Active Start: Hany car 2024 [...] December 13, 2024 End: December 13, 2024 Lashon Baltazar PA, PA Attending Provider Active Start: December 13, 2024 End: December 13, 2024 Team Status: Inactive Member Role Status Dates Dr. David Anderson MD Primary Care Provider Acti ve Start: January 12, 2025 End: January 12, 2025 LASHONDA, THAL Attending Provider Active Start: [facility] 2024 End: January 12, 2025 LASHONDA, THAL Referring Provider Active Start: [facility] 2024 End: January 12, 2025 Dr. Storm Ryan MD Other Provider Active Start : January 12, 2025 End: January 12, 2025 Team Status: Active Member Role Status Dates Dr. David Anderson MD Primary Care Provider Acti ve Start: January 22, 2025 LASHONDA, MAURITIAN Attending Provider Active Start: [facility] 2024 LASHONDA, MAURITIAN Referring Provider Active Start: [facility] [address]24 Dr. Storm Ryan MD Other Provider Active Start : January 22, 2025 Team Status: Inactive Member Role Status Dates Dr. David Anderson MD Primary Care Provider Acti ve Start: January 22, 2025 End: January 22, 2025 LASHONDATORIN Gonzalez Attending Provider Active Start: [facility] 2024 End: January 22, 2025 LASHONDATORIN LOPEZ Referring Provider Active Start: [facility] 2024 End: January 22, 2025 Dr. Storm Ryan MD Other Provider Active Start : January 22, 2025 End: January 22, 2025 Preparation Room Manager Relationship Specialty Start Date End Date David Anderson MD [address] [facility] [address] [place] [address] PCP - General Family Medicine 12/15/24 Preparation Room Manager Relationship Specialty Start Date End Date David Anderson MD [address] [facility] [address] [place] [address] PCP - General Family Medicine 12/15/24 Team Status: Active Member Role Status Dates Dr. David Anderson MD Primary Care Provider Acti ve Start: January 22, 2025 Dr. Leonid Marcano DO Attending Provider Active S tart: January 22, 2025 LASHONDATORIN LOPEZ Referring Provider Active Start: [facility] 2024 Team Status: Inactive Member Role Status Dates Dr. David Anderson MD Primary Care Provider Acti ve Start: May 03, 2025 End: May 03, 2025 Dr. David Anderson MD Referring Provider Active Start: May 03, 2025 End: May 03, 2025 Lashon Baltazar PA, PA Attending Provider Active Start: May 03, [...] May 03, 2025 End: May 03, 2025 Lashon Baltazar PA, PA Attending Provider Active Start: May 03, 2025 End: May 03, 2025 Team Status: Inactive Member Role/Relationship Status Dates Dr. David Anderson MD Primary Care Provider Acti ve Start: May 19, 2025 End: May 19, 2025 Lashon Baltazar PA, PA Attending Provider Active Start: May 19, 2025 End: May 19, 2025 Lashon Baltazar PA, PA Referring Provider Active Start: May 19, 2025 End: May 19, 2025 Team Status: Active Member Role/Relationship Status Dates Dr. David Anderson MD Primary Care Provider Acti ve Start: June 22, 2025 Dr. David Anderson MD Attending Provider Active Start: June 22, 2025 Dr. David Anderson MD Referring Provider Active Start: June 22, 2025 Lashon Baltazar PA, PA Other Provider Active Start: June 22, 2025 Team Status: Inactive Member Role/Relationship Status Dates Dr. David Anderson MD Primary Care Provider Acti ve Start: June 28, 2025 End: June 28, 2025 Dr. David Anderson MD Referring Provider Active Start: June 28, 2025 End: June 28, 2025 Lashon Baltazar PA, PA Attending Provider Active Start: June 28, 2025 End: June 28, 2025 Team Status: Inactive Member Role/Relationship Status Dates Dr. David Anderson MD Primary Care Provider Acti ve Start: June 22, 2025 End: June 22, 2025 Dr. David Anderson MD Attending Provider Active Start: June 22, 2025 End: June 22, 2025 Dr. David Anderson MD Referring Provider Active Start: June 22, 2025 End: June 22, 2025 Lashon Baltazar PA, PA Other Provider Active Start: June 22, 2025 End: June 22, 2025 Team Status: Inactive Member Role/Relationship Status Dates Dr. David Anderson MD Primary Care Provider Acti ve Start: July 10, 2025 End: July 10, 2025 Dr. David Anderson MD Attending Provider Active Start: July 10, 2025 End: July 10, 2025 Dr. David Anderson MD Referring Provider Active Start: July 10, 2025 End: July 10, 2025 Reason for Visit (unrecogniz ed section and content) Reason Comments Atrial Fibrillation Specialty Diagnoses / Procedures Referred By Contac t Referred To Contact Diagnoses Atrial fibrillation, unspecified type (Multi) Procedures ECG 12 lead (Clinic Performed) L[place]onda [place]án [place] [address] [place] [address] Phone: tel: fax: Referral ID Status Reason Start Date Expiration Date V isits Requested Visits Authorized [id number] Authorized 09/13/2024 09/13/2025 1 1 Specialty Diagnoses / Procedures Referred By Contac t Referred To Contact Diagnoses Longstanding persistent atrial fibrillation (Multi) Procedures ECG 12 lead (Clinic Performed) Lashonda Beltrán [place] [id number] [place], [place] [address] [place] [address] Phone: tel: fax: Referral ID Status Reason Start Date Expiration Date V isits Requested Visits Authorized [id number] Authorized 11/15/2024 11/15/2025 1 1 Reason Comments Atrial Fibrillation Specialty Diagnoses / Procedures Referred By Contac t Referred To Contact Diagnoses Atrial fibrillation, unspecified type (Multi) Procedures ECG 12 lead (Clinic Performed) Lashonda Beltrán [place] [id number] [place], [place] [address] [place] [address] Phone: tel: fax: Referral ID Status Reason Start Date Expiration Date V isits Requested Visits Authorized [id number] Authorized 01/10/2025 01/10/2026 1 1 Scheduled Active [...] Benton RN)2028 (Given - Provider: Kristi Palmer, ADNIEL) 08 (Given - Provider: Mary Kate Carrera, DANIEL)2100 (Due) colchicine tablet 0.6 mg(Linked Group 1) 0.6 mg, oral, 2 times daily, First dose on 10/15/24 at 0900 08 (Given - Provider: Nubia Benton RN)2028 (Given - Provider: Kristi Palmer RN) 08 (Given - Provider: Mary Kate Carrera, [...] Moore RN) 0630 (Given - Provider: Kristi Palmer RN) lidocaine 4 % patch 1 patch 1 [...] (Medication Removed - Provider: Paula Moore RN) 08 (Medication Applied - Provider: Nubia Benton RN - Comment: back)2015 (Medication Removed - Provider: Kristi Palmer RN) 0813 (Medication Applied - Provider: Mary Kate Carrera RN - Comment: back)2012 (Due: Medication Removed - Provider: Mary Kate Carrera RN) lisinopril tablet 10 mg (CANCELED) 10 mg, oral, Daily, First dose on 10/15/24 at 0900 0808 (Given - Provider: Nubia Benton RN) lisinopril tablet 20 mg 20 mg, oral, Daily, First dose (after last modification) on Wed10/16/24 at 0900 0809 (Given - Provider: Mary Kate Carrera RN) magnesium sulfate 4 g in sterile water for injection 100 mL (COMPLETED) 4 g, intravenous, at 25 mL/hr, Administer over 4 Hours, Once, On Wed10/15/24 at 0700, For 1 dose 0817 (New Bag - Provider: Nubia Benton RN)1410 (Stopped - Provider: Nubia Benton RN) melatonin tablet 3 mg 3 mg, oral, Daily, First dose on Wed10/13/24 at 2345 2114 (Given - Provider: Paula Moore RN) 2028 (Given - Provider: Kristi Palmer RN) 1800 (Due) metoprolol tartrate (Lopressor) tablet 12.5 mg 12.5 mg, oral, Every 6 hours, First dose on Wed10/15/24 at 1315 1414 (Given - Provider: Nubia Benton RN)2028 (Given - Provider: Kristi Palmer RN) 0149 (Given - Provider: Kristi Palmer RN)0809 (Given - Provider: Mary Kate Carrera RN)1326 [...] Carrera RN)1336 (Stopped - Provider: Mary Kate Carrera, DANIEL) potassium, sodium phosphates (Phos-NaK) 280-160-250 mg packet [...] preference? Yes 0839 (Given - Provider: Moises Jamil RN)1620 (Given - Provider: Moises Jamil RN)2114 (Given - Provider: Paula Moore, DANIEL) 0333 (Given - Provider: Paula Moore RN)1024 (Given - Provider: Nubia Benton RN)1643 (Given - Provider: Nubia Benton RN)2325 (Given - Provider: Kristi Palmer RN) 0809 (Given - Provider: Mary Kate Carrera, [...] Saenz RN) 826 (Given - Provider: Edwige Valdes, RN)2099 (Due) apixaban (Eliquis) tablet 5 mg 5 mg, oral, 2 times daily, First dose on Nohelia 12/14/24 at 2100, [facility] 2021 (Given - Provider: Julius Saenz RN) 826 (Given - Provider: Edwige Valdes, DANIEL)2099 (Due) [...] Saenz RN) 826 (Given - Provider: Edwige Valdes, DANIEL)2099 (Due) levothyroxine (Synthroid, Levoxyl) tablet 50 mcg 50 mcg, oral, Daily (0630), First dose on Wed12/15/24 at 0630, [facility] 0557 (Given - Provid er: Julius Saenz RN) lisinopril tablet 20 mg 20 mg, oral, Daily, First dose on Wed12/15/24 at 0900, [facility] 0826 (Given - Provid er: Edwige Valdes, DANIEL) metoprolol tartrate (Lopressor) tablet 50 mg 50 mg, oral, 2 times daily, First dose on No[place]ia 12/14/24 at 2100, [facility] 2021 (Given - Provider: Julius Saenz, DANIEL) 0826 (Given - Provider: Edwige Valdes, RN)2100 (Due) pantoprazole (ProtoNix) EC tablet 40 mg 40 mg, oral, 2 times daily before meals, First dose on Nohelia 12/14/24 at 1600, [facility], Do not crush, chew, or split. 1828 (Given - Provider: Edwige Valdes, DANIEL) 0753 (Given - Provider: Edwige Valdes, DANIEL)1600 (Due) PRN Medication Order 12/13/2024 12/14/2024 12/15/2024 acetaminophen (Tylenol) oral liquid 650 mg(Linked Group 1) 650 mg, oral, Every 4 hours PRN, pain mild (1-3), first line, Starting on No[place]ia 12/14/24 at 1311, [facility], Give oral liquid per feeding tube if present. 1531 (See Alternative - Provider: Kailey Johnson RN)2332 (See Alternative - Provider: Julius Saenz RN) 0724 (See Alternative - Provider: Julius Saenz, DANIEL) acetaminophen (Tylenol) suppository 650 mg(Linked Group 1) 650 mg, rectal, Every 4 hours PRN, pain mild (1-3), first line, Starting on [place]ia 12/14/24 at 1311, [facility], Give rectally if unable to administer by mouth or feeding tube., If ordered PRN for pain, nurse is permitted to administer this medication for higher pain scores based on patient preference? Yes 1531 (See Alternative - Provider: Kailey Johnson RN)2332 (See Alternative - Provider: Julius Saenz RN) 0724 (See Alternative - Provider: Julius Saenz, DANIEL) acetaminophen (Tylenol) tablet 650 mg(Linked Group 1) 650 mg, oral, Every 4 hours PRN, pain mild (1-3), first line, pain moderate (4-6), first line, Starting on [place]ia 2/6/25 at 1311, [facility], If ordered PRN for pain, nurse is permitted to administer this medication for higher pain scores based on patient preference? Yes 1531 (Given - Provider: Kailey Johnson RN)2332 (Given - Provider: Julius Saenz RN) 0724 (Given - Provider: Julius Saenz RN) bupivacaine PF 0.25 % (Marcaine) 0.25 % (2.5 mg/mL) injection (CANCELED) As needed, Starting on Nohelia 2//25 at 1226, Intraprocedure 1226 (Given - Provider: Lashonda Beltrán MD) fentaNYL PF (Sublimaze) injection (CANCELED) As needed, Starting on Nohelia 2//25 at 1225, Intraprocedure 1225 (Given - Provider: Paddy Oneal RN)1239 (Given - Provider: Paddy Oneal RN) melatonin tablet 3 mg 3 mg, oral, Nightly PRN, sleep, Starting on No[place]ia 2 at 1311, For 1 dose, [facility] midazolam (Versed) injection (CANCELED) As needed, Starting on Nohelia 2/25 at 1225, Intraprocedure 1225 (Given - Provider: Paddy Oneal RN)1239 (Given - Provider: Paddy Oneal RN) ondansetron (Zofran) injection 4 mg(Linked Group 2) 4 mg, intravenous, Every 8 hours PRN, nausea/vomiting, first line, Starting on No[place]ia 2//25 at 1311, [facility], 1st [...] PRN, nausea/vomiting, first line, Starting on [place] 2/6/25 at 1311, [facility], 1st Line. Use oral route first, if possible. If inadequate response within 60 minutes, proceed to next-line agent for same PRN reason or contact provider if no further options ordered. 0443 (See Alternativ e - Provider: Julius Saenz, DANIEL) oxygen (O2) therapy (COMPLETED) Continuous PRN, Starting [...] (4- 6), first line, Starting on [place] 12/14/24 at 1311, [facility], If ordered PRN for pain, nurse is permitted to administer this medication for higher pain scores based on patient preference? Yes Or acetaminophen (Tylenol) oral liquid 650 mgJump to med 650 mg, oral, Every 4 hours PRN, pain mild (1-3), first line, Starting on [place]ia 12/14/24 at 1311, [facility], Give oral liquid per feeding tube if present. Or acetaminophen (Tylenol) suppository 650 mgJump to med 650 mg, rectal, Every 4 hours PRN, pain mild (1-3), first line, Starting on No[place]ia 12/14/24 at 1311, [facility], Give rectally if unable to administer by mouth or feeding tube., If ordered PRN for pain, nurse is permitted to administer this medication for higher pain scores based on patient preference? Yes Group 2: ondansetron (Zofran) tablet 4 mgJump to med 4 mg, oral, Every 8 hours PRN, nausea/vomiting, first line, Starting on Nohelia 2 at 1311, [facility], 1st [...] section and content) DATE CREATED AUTHOR 12/30/2024 [facility] DATE CREATED AUTHOR AUTHOR'S ORGANIZ ATION 05/02/2025 [facility] [place] DATE CREATED AUTHOR AUTHOR'S ORGANIZ ATION 05/04/2025 [facility] DATE CREATED AUTHOR AUTHOR'S ORGANIZ ATION 07/22/2025 [facility] FOR RECORDS PERTAINING TO PATIENTS WHO ARE [...] BE BASED ON THE PRIMARY CLINICAL RECORDS. [employer] provides no warranty or guarantee of the accuracy or completeness of information in this document.
== END | disposition home or self-care (01) ==
LOC: SL 19:36
PROVIDERS: PCP Family Medicine; Referring Provider Physician Assistant Medical; Visit Provider Physician Assistant Medical
DX: G47.33 Obstructive sleep apnea (adult) (pediatric) (principal)
CPT/HCPCS: 95811

== ENCOUNTER → 2025-10-17 | Outpatient (CLI) | payer MEDICARE, BC, SELFPAY ==
--- OUTSIDE RECORDS SUMMARY | 2025-10-17 07:32 | XMS RPT_ITS | CCD ---
Author Organization [facility] CliniSyin Care Team Providers Care [facility] Community Liaison Name Role Phone Dr. Connor Anderson Primary Care Provider Dr. Storm Ryan Attending Provider [phone] Joel Anderson Primary Care Provider [phone] Dr. Joel Anderson Referring Provider Dr. Storm Ryan Attending Provider [phone] Generic Provider MD, No Assigned Pcp Primary Car e Provider Unavailable Generic Provider , No Assigned Pcp Primary Car e Provider Unavailable Joel Anderson MD Primary Care Provide r Dr. Joel Anderson MD Primary Care Provider LASHONDA BELTRÁN Attending Provider [phone] THAL, LASHONDA Referring Provider [phone] TORIN LASHONDA Attending Provider Dr. Storm Ryan MD Other Provider [phone] Joel Anderson MD Referring Provider Lashon Shah Attending Provider [place]OUTH [place] LASHONDA Attending Provider SOUTH [place], LASHONDA Referring Provider Dr. Joel Anderson MD Primary Care Provider THAL LASHONDA Attending Provider THAL, LASHONDA Referring Provider Dr. Joel Anderson MD Primary Care Provider Dr. Storm Ryan MD Other Provider Dr. Leonid Marcano DO Attending Provider SOUTH KOREAN, LASHONDA Referring Provider Unavailable Dr. Joel Anderson MD Referring Provider Lashon Shah Attending Provider [phone] HELEN ORTIZ Referring Unavailable RAN[facility], [facility] Primary Care Unavail able THAL, LASHONDA G Attending Unavailable THAL, LASHONDA G Referring Unavailable RANWH[facility] [place], [facility] Primary Care Unavail able THAL, LASHONDA G Attending Unavailable GENERIC PROVIDER, NO ASSIGNED PCP Primary Care Unavailable THAL, LASHONDA G Referring Unavailable THAL, LASHONDA G Referring Unavailable RANWH[facility] [place], [facility] Primary Care Unavail able THAL, LASHONDA G Referring Unavailable RAN[facility], [facility] Primary Care Unavail able THAL, LASHONDA G Attending Unavailable [facility], [facility] Primary Care Unavail able THAL, LASHONDA G Attending Unavailable GENERIC PROVIDER, NO ASSIGNED PCP Primary Care Unavailable THAL, LASHONDA G Referring Unavailable THAL, LASHONDA G Admitting Unavailable THAL, LASHONDA G Attending Unavailable JUSTIN, [facility] HE[facility] Primary Care Unavail able Justin CARLSON, Dr. Maldonado Primary Care Provider Lashon Shah Referring Provider [phone] Dr. Joel Anderson MD Attending Provider [phone] Lashon Shah Other Provider [phone] GENERIC PROVIDER, NO ASSIGNED PCP Primary Care Unavailable REINA MONET Admitting Unavailable KRYSTINA BRONSON Attending Unavailable THAL, LASHONDA G Referring Unavailable [facility], [facility] Primary Care Unavail able THAL, LASHONDA G Referring Unavailable RAN[facility], [facility] Primary Care Unavail able Dr. Joel Anderson MD Primary Care Physicia n Lashon Shah Attending Physician [phone] Dr. Joel Anderson MD Attending Physician Lashon Shah Nurse Practitioner [phone] Joel Anderson Primary Care Unavailable Lashon Baltazar Referring Unavailabl e Lashon Baltazar Attending Unavailabl e [facility] Unavailable Connor, Storm Consulting Unavailable ROGE SIMPSON Attending Unavailable ROGE SIMPSON Referring Unavailable ROGE SIMPSON Attending Unavailable [facility] Unavailable ROGE SIMPSON Referring Unavailable [facility] Primary Care Unavailable Lashon Baltazar Referring Unavailabl e Connor, [place] Attending Unavailable Leonid Marcano Attending Unavailable [facility] Primary Care Unavailable ROGE SIMPSON Referring Unavailable [facility] Primary Care Unavailable [facility] [place] Referring Unavailable Saida Romero Attending Unavailable [facility] Care Unavailable [facility] [place] Referring Unavailable Lashon Baltazar Attending Unavailabl e Ranpr[facility], [facility] Care Unavailable [facility] [place] Referring Unavailable Lashon Baltazar Attending Unavailabl e [place], [facility] Care Unavailable [facility] [place] Referring Unavailable Lashon Baltazar Attending Unavailabl e [facility] Unavailable [facility] [place] Referring Unavailable Lashon Baltazar Attending Unavailabl e RanJoel chandra Attending Unavailable [facility] Care Unavailable [facility] [place] Referring Unavailable Lashon Baltazar Consulting Unavailabl e Ranprateek, Joel Attending Unavailable [facility] Care Unavailable [facility] [place] Referring Unavailable [facility] Care Unavailable Lashon Baltazar Referring Unavailabl Lashon Harris Attending Unavailabl e [facility] Unavailable Lashon Baltazar Referring Unavailabl Lashon Harris Attending Unavailabl e ROGE SIMPSON Attending Unavailable [facility] Care Unavailable Connor, [place] Consulting Unavailable ROGE SIMPSON Attending Unavailable [facility] Unavailable Connor, Storm Consulting Unavailable ROGE SIMSPON Referring Unavailable Nick SOLIMANCSiada Attending Physician Medications Current Medications Medication Drug Class(es) Dates Sig (Normalized) Sig (Original) amiodarone hydrochloride 200 mg oral tablet (13 sources) Antiarrhythmic Start: 01-10-2025 End: 01-10-2026 take 1 tablet by mouth once daily Amiodarone 200 mg tablet Active 200 mg PO daily August 10, 2025 12:00am Complies with drug therapy Start: 12-15-2024 End: 12-29-2025 take 2 tablets [...] 12/14/24 at 2100, Recovery [facility] On Unit apixaban 5 mg oral tablet (20 sources) Factor Xa Inhibitor Start: 02-02-2024 End: 03-27-2024 take 1 tablet by mouth twice daily Apixaban (Eliquis) 5 mg tablet Active 5 mg PO TWICE A DAY 180 3 March 27, 2024 10:05am Complies with drug therapy calcium carbonate 1500 mg / cholecalciferol 200 unt oral capsule (12 sources) Vitamin D Start: 06-21-2023 Calcium Carbonate-Vitamin D3 (Calcium 600 + D(3)) 600 mg-5 mcg (200 unit) capsule Active 2 NMA PO DAILY June 21, 2023 12:00am Complies with drug therapy colchicine 0.6 mg oral tablet (2 sources) [...] mg PO Q4D June 21, 2023 12:00am Complies with drug therapy Start: 06-21-2023 Estradiol Acti ve 0.25 MG PO Q4D June 21, 2023 12:00am levothyroxine sodium 0.05 mg oral tablet (20 sources) l-Thyroxine Start: 06-21-2023 take 1 tablet by mouth once daily Levothyroxine 50 mcg tablet Active 50 ug PO DAILY June 21, 2023 12:00am Complies with drug therapy lidocaine 0.04 mg/mg medicated patch (1 source) [...] mg PO DAILY December 13, 2024 9:41am Complies with drug therapy Start: 10-16-2024 End: 12-16-2024 take 1 tablet [...] Start: 12-13-2024 take 2 tablets by mo wah twice daily Metoprolol Tartrate 25 mg tablet Active 50 mg PO TWICE A DAY December 13, 2024 9:41am Complies with drug therapy Start: 10-15-2024 take 1 tablet by ann [...] 02, 2024 12:00am February 02, 2024 3:42pm Johmoqgs-Jcd-Ikdr Fum-Folic Ac (One-A-Day Women's Complete) 18 mg iron- 400 mcg tablet (1 source) Start: 08-10-2025 Eqwmhztf-Xeu-Enpy Fum-Folic Ac (One-A-Day Women's Complete) 18 mg iron- 400 mcg tablet Active {tbl} PO August 10, 2025 12:00am Vitamin Supplement Complies with drug therapy Multivitamin preparation (1 source) Start: 02-02-2024 take 1 tablet by mouth once daily Multivitamin Active 1 TABLET PO DAILY February 02, 2024 12:00am nitroglycerin [...] (Zofran) tablet 4 mg polyethylene glycol 3350 74466 mg powder for oral solution (1 source) Osmotic Laxative Start: 10-15-2024 take 17 g by mouth every twenty-fou r hours as needed 17 g, oral, Daily PRN, constipation, Starting on 10/15/24 at 1603 spironolactone 25 mg oral tablet (7 sources) Aldosterone Antagonist Start: 05-03-2025 take 1 tablet by mouth once daily Spironolactone 25 mg tablet Active 25 mg PO DAILY 07 10May 03, 2025 12:00am Complies with drug therapy traMADol hydrochloride 50 mg oral tablet (2 [...] Active triamcinolone acetonide 1 mg/ml topical cream (11 sources) Corticosteroid Start: 10-14-2023 triamcinolone (Kenalog) 0.1 [...] pain moderate (4-6), first line, Starting on 10/13/24 at 2327, If ordered PRN for pain, nurse is permitted to administer this medication for higher pain scores based on patient preference? Yes biotin 10 mg oral capsule (12 sources) Start: 06-21-2023 End: 04-25-2024 take 1 capsule by mouth once daily Biotin 10,000 mcg capsule Discontinued 10975 ug PO DAILY June 21, 2023 12:00am [...] Prophylaxis flecainide acetate 100 mg oral tablet (20 sources) Antiarrhythmic Start: 06-09-2024 End: 12-13-2024 take [...] On 10/15/24 at 0700, For 1 dose Multivitamin tablet (9 sources) Start: 02-02-2024 End: 08-10-2025 Multivitamin tablet Discontinued 1 {tbl} PO DAILY February 02, 2024 12:00am August 10, 2025 8:11am Start: 02-02-2024 Start: 02-02-2024 Multivitamin t ablet Active 1 {tbl} PO DAILY February 02, 2024 12:00am pantoprazole 40 mg delayed release oral tablet (18 sources) Proton Pump Inhibitor Start: 12-13-2024 End: [...] hypertension] Onset: 10-13-2024 01-13-2024 Chronic Nutritional deficiencies (11 sources) Serum iron low; Translations: [Iron deficiency] 01-13-2024 Episodic Other aftercare (2 sources) Drug therapy finding; Translations: [Other jail (current) drug therapy] 01-10-2025 Episodic Other lower respiratory disease (9 sources) Dyspnea on exertion; Translations: [Other forms of dyspnea] 03-14-2024 Episodic Other screening for suspected conditions (not mental disorders or infectious disease) (1 source) Encounter for screening mammogram for malignant neoplasm of breast; Translations: [Encounter for screening mammogram for malignant neoplasm of breast] Onset: 07-19-2025 Episodic Residual codes; unclassified (11 sources) Obstructive sleep apnea syndrome; Translations: [Obstructive sleep apnea (adult) (pediatric)] 06-28-2025 Chronic Residual codes; unclassified (1 source) Obstructive sleep apnea (adult) (pediatric); Translations: [Obstructive sleep apnea (adult) (pediatric)] Onset: 08-05-2025 Chronic Residual codes; unclassified (9 sources) History of cardioversion; Translations: [Personal history of other medical treatment] 12-13-2024 Episodic Thyroid disorders (11 sources) Acquired hypothyroidism; Translations: [Hypothyroidism, unspecified] Onset: 10-13-2024 10-13-2024 Chronic Thyroid disorders (11 sources) Disorder of thyroid gland; Translations: [Disorder of thyroid, unspecified] 01-13-2024 Episodic Unclassified (7 sources) Age AND/OR growth finding; Translations: [65 years of age or older] 07-28-2021 Unclassified (1 source) Drug therapy finding 01-10-2025 Unclassified (3 sources) Other persistent atrial fibrillation; Translations: [Other persistent atrial fibrillation] Onset: 12-13-2024 Unclassified (4 sources) Longstanding persistent atrial fibrillation; Translations: [Longstanding persistent atrial fibrillation (Multi)] Onset: 10-13-2024 Viral infection (7 sources) Disease caused by 2019-nCoV; Translations: [COVID-19] 07-28-2021 Episodic Past or Other Problems Problem Classification Problem Date Documented Da te Episodic/Chronic Cardiac dysrhythmias (20 sources) Palpitations; Translations: [Palpitations] Onset: 09-07-2024 01-13-2024 Episodic Other aftercare (3 sources) Other jail (current) drug therapy; Translations: [Other lab[employer] (current) drug therapy] Onset: 01-10-2025 Episodic Kelly-; endo-; and myocarditis; cardiomyopathy (except that caused by tuberculosis or sexually transmitted disease) (3 sources) Acute pericarditis; Translations: [Other forms of acute pericarditis] Onset: 10-13-2024 10-16-2024 Episodic Unclassified (11 sources) Onset: 09-13-2024 Resolved: 04-30-2025 09-13-2024 Results Test Name Value Interpretation Reference Range Facility Pulmonary Visit Reporton Pulmonary Visit Report [facility] Pulmonary Medicine [address] [place] [address] OFFICE VISIT Date of Service: 08/10/25 MR#: [id number] Acct: [id number] Name: RADHA THOMAS Rep #: [id number] : 1955 Provider: Saida Romero NP Age/Sex: 70/F Location: [facility] Status: Signed Assessment and Plan Assessment and Plan (1) PRIETO (obstructive sleep apnea): Status: Acute Plan: Severe obstructive sleep apnea is present. Despite various surgical interventions the patient continues to have severe sleep apnea. I have discussed the pathophysiological process of sleep apnea and the potential comorbid conditions associated with sleep apnea. I have discussed the correlation between sleep apnea and A-fib and stroke. The patient reports understanding. She is ready to treat sleep disordered breathing at this time. The patient indicates that she tolerated PAP therapy well during her sleep study. I believe that she will receive excellent benefit from utilizing PAP therapy and have recommended that she begin CPAP at this time. She will be set up with a local vendor and then follow-up at this practice within 8 weeks to assess response to treatment. Once the patient has become acclimated to the device then a nocturnal oximetry may be beneficial in the near future especially regards to the cardiac history. Advance follow-up if struggling to become compliant with therapy. (2) PAF (paroxysmal atrial fibrillation): Status: Acute Plan: The patient or stands a correlation between atrial fibrillation and sleep apnea. She is motivated to treat sleep disordered breathing at this time. (3) Hypertension: Status: Chronic Qualifiers: Hypertension type: unspecified Qualified Code(s): I10 - Essential (primary) hypertension Plan: Controlled today. I have discussed how uncontrolled sleep apnea can affect blood pressure control. Plan This note was generated with [employer] dictation software. It may contain incorrect words, spelling, and punctuation that were not noted in checking the note before signing. Plan Details Follow Up: 8 Weeks (LMR) HPI HPI Comments Details: Patient is a 70-year-old female who presents today to establish for sleep disordered breathing. She is ambulatory and currently on room air. She recently completed a split polysomnography from July 26, 2025 which showed severe obstructive sleep apnea with an AHI of 50.5 using the AASM 1B rule and using the AASM 1A rule the AHI was 63.5. The recommendation is for the patient to utilize CPAP at 6 cm. This sleep study was ordered by PAOLO Riley cardiology. She follows with Lashon for paroxysmal atrial fibrillation, persistent atrial fibrillation, history of cardioversion, history of cardiac pacemaker. The patient reports that she developed A-fib in 2022. She did complete cardioversion x 2 and ablation. She is now controlled using a pacemaker. She does have a history of thyroid disease, low iron, hypertension, meningioma. In the past she had completed surgical interventions for sleep apnea but had noted continued fatigue, snoring, and elevated STOP-BANG 5 out of 8 which prompted this split-night study. The surgical interventions include tonsillectomy and adenoidectomy in 1966. UP3 1995. And major jaw surgery in 2002. She reports 2 prior sleep studies from 1995 1988. The patient also trialed CPAP in the past. She reports that she struggled with constant sneezing throughout the day after using the device at night. She eventually turned in her machine and it did not treat sleep apnea with CPAP therapy. She did complete an echocardiogram February 08, 2024 which showed normal LV size, left ventricular systolic function is normal, estimated ejection fraction 60%, pulmonary artery systolic pressure is 34 mmHg, structurally normal valves. She is a lifelong non-smoker. She has not history of bronchitis or pneumonia. 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 She has no family history of sleep apnea. She feels un-refreshed upon awakening. Her pacemaker has recently been adjusted and she was napping prior to the adjustment. She reports that she is still tired. Nocturia does occur x 1 and she experiences oral dryness. Snoring is also present. Intake Vital Signs 06/28/25 07:26 08/10/25 05:10 Height 5 ft 5 in 5 ft 5 in Weight: 188 lb BMI 31.2 BP 119/75 Blood Pressure Location Lt brachial Position Sitting Respiration 18 Pulse 74 Pulse Source Monitor Temp 95.6 F L Temperature Source Temporal Artery Pulse Oximetry (%) 96 Oxygen Delivery Method room air Intake Visit Reasons: Sleep problems Engineering Program Analyst Required: No DME Vendor: n/a Accompanied by: Self Is patient in pain?: No Allergies No Known Allergies Allergy (Verified 08/10/25 08:10) (more content not included)... Normal [facility] Breast imaging reportOrdered By: Matt Cao on 07-11-2025 Study report [facility] Imaging Services [address] [place] [address] SCRN MAMM (CAD)W/JOAQUIN BILAT MR#: [id number] Acct: [id number] Name: RADHA THOMAS Rep #: [id number] : 1955 F 70 From: Patricio Cao MD PCP: Dr. Joel Anderson MD Status: [facility] Study:SCRN MAMM (CAD)W/JOAQUIN BILAT Date of Exa m: 07/10/25 Exam# [id number] Ordering Dr: Manish Anderson MD EXAM: SCRN [...] be mailed to the patient. Reading Location: [facility]- CC: Dr. Joel Anderson MD ~ Assistant Professor Of Art: Signed [facility] SCRN MAMM (CAD)W/JOAQUIN BILATo n 07-10-2025 SCRN MAMM (CAD)W/JOAQUIN BILAT [facility] Imaging Services [address] [place] [id number] SCRN MAMM (CAD)W/JOAQUIN BILAT MR#: [id number] Acct: [id number] Name: RADHA THOMAS Rep #: [id number] : 1955 F 70 From: Matt bonilla MD PCP: Dr. Joel Anderson MD Status: [facility] Study: SCRN MAMM (CAD)W/JOAQUIN BILAT Date of Exam: 01/02 Exam# [id number] Ordering Dr: Joel Anderson EXAM: SCRN MAMM (CAD)W/JOAQUIN BILAT DATE: [...] be mailed to the patient. Reading Location: [place] [address] CC: Dr. Joel Anderson MD Assistant Professor Of Art: Signed Normal [facility] Cardiology Visit Reporton Cardiology Visit Report [facility] [address] [place] [address] OFFICE VISIT Date of Service: 06/28/25 MR#: [id number] Acct: [id number] Name: RADHA THOMAS Rep #: [id number] : 1955 Provider: PAOLO Ruiz Age/Sex: 69/F Location: [facility] Status: Signed HPI HPI History [...] on a beta-clemente and anticoagulation with a EOP4BI3-OTHh score of 3. Patient did undergo a [...] beats. Patient was seen by EP at [facility]. Patient did undergo an ablation [...] (%) 99 Intake Visit Reasons: 2 M Engineering Program Analyst Required: No Is patient in pain?: No [...] History (Updated 06/28/25 @ 08:21 by Lashon Baltazar PA, PA) Hx of cardiac pacemaker [...] Edema: None (more content not included)... Normal [facility] T4 Free Directon 06-27-2025 T4 FREE DIRECT 1.10 ng/dL Normal 0.76-1.46 [facility] Comment on above: Order Comment: LACIE Brunner ADD T4F TO BLOOD DRAWN 06/22/25PER Order Date: 01/01/25Order Info: 666- - BMPOrder Info: [id number] - LIPIDOrder Info: [id number] - MGOrder Info: 3 - TSH Performed By: #### L 506.0400 ####[facility] [address] [place], [place], [id number] Anion gap in Serum or Plasma Ordered By: Joel Anderson on 06-22-2025 Anion gap [Moles/Vol] 12 mmol/L 03-22 [facility] BUN/creatinine ratioOrdered By: Joel Anderson on 06-22-2025 Urea nitrogen/Creatinine [Mass ratio] 20.4 mg/mg High 08-27 [facility] Basic Metabolic Profile (BMP )on 06-22-2025 BUN/CRE 20.4 RATIO High 08-27 [facility] Comment on above: Order Comment: Order Date: 01/01/25 Order Info: 666-11 - BMP Order Info: [id number] - LIPID Order Info: [id number] - MG Order Info: 3 - TSH Performed By: #### L 501.5200, L501.9520, L500.2500, L500.4100, L100.0500 #### [facility] [address] [place], [place], [address] Calcium [Mass/Vol] 9.3 mg/dL Normal 7.6-11.0 [facility] Comment on above: Order Comment: Order Date: 01/01/25 Order Info: 666- - BMP Order Info: [id number] - LIPID Order Info: [id number] - MG Order Info: [id number] - TSH Performed By: #### L 501.5200, L501.9520, L500.2500, L500.4100, L100.0500 #### [facility] [address] [place], [address] Chloride [Moles/Vol] 104 mmol/L Normal 98-108 [facility] Comment on above: Order Comment: Order Date: 01/01/25 Order Info: 666-11 - BMP Order Info: [id number] - LIPID Order Info: [id number] - MG Order Info: [id number] - TSH Performed By: #### L 501.5200, L501.9520, L500.2500, L500.4100, L100.0500 #### [facility] [address] [place], [address] CO2 [Moles/Vol] 23.1 mmol/L Normal 21.0-32.0 [facility] Comment on above: Order Comment: Order Date: 01/01/25 Order Info: 666-11 - BMP Order Info: - LIPID Order Info: [id number] - MG Order Info: [id number] - TSH Performed By: #### L 501.5200, L501.9520, L500.2500, L500.4100, L100.0500 #### [facility] [address] [place], [address] Creatinine [Mass/Vol] 1.11 mg/dL Normal 0.70-1.20 [facility] Comment on above: Order Comment: Order Date: 01/01/25 Order Info: 666-11 - BMP Order Info: [id number] - LIPID Order Info: [id number] - MG Order Info: [id number] - TSH Performed By: #### L 501.5200, L501.9520, L500.2500, L500.4100, L100.0500 #### [facility] [address] [place], [address] GAP 12 Normal 5-15 [facility] Comment on above: Order Comment: Order Date: 01/01/25 Order Info: 666-11 - BMP Order Info: [id number] - LIPID Order Info: [id number] - MG Order Info: 3 - TSH Performed By: #### L 501.5200, L501.9520, L500.2500, L500.4100, L100.0500 #### [facility] [address] [place], [address] GFR/1.73 sq M.predicted among non-blacks MDRD (S/P/Bld) [Vol rate/Area] 54 mL/min/{1.73_m2} Low >60 [facility] Comment on above: Order Comment: Order Date: 01/01/25 Order Info: 666-11 - BMP Order Info: [id number] - LIPID Order Info: [id number] - MG Order Info: 3 - TSH Result Comment: mL/m in/1.73m2 CKD-EPI Creatinine Equation (2020) Performed By: #### L 501.5200, L501.9520, L500.2500, L500.4100, L100.0500 #### [facility] [address] [place], [address] Glucose [Mass/Vol] 101 mg/dL High 70-99 [facility] Comment on above: Order Comment: Order Date: 01/01/25 Order Info: 666-11 - BMP Order Info: [id number] - LIPID Order Info: [id number] - MG Order Info: 3 - TSH Performed By: #### L 501.5200, L501.9520, L500.2500, L500.4100, L100.0500 #### [facility] [address] [place], [address] Potassium [Moles/Vol] 4.3 mmol/L Normal 3.3-5.1 [facility] Comment on above: Order Comment: Order Date: 01/01/25 Order Info: 06 - BMP Order Info: [id number] - LIPID Order Info: [id number] - MG Order Info: 3 - TSH Performed By: #### L 501.5200, L501.9520, L500.2500, L500.4100, L100.0500 #### [facility] [address] [place], [address] Sodium [Moles/Vol] 139 mmol/L Normal 133-145 [facility] Comment on above: Order Comment: Order Date: 01/01/25 Order Info: [id number] - BMP Order Info: [id number] - LIPID Order Info: [id number] - MG Order Info: [id number] - TSH Performed By: #### L 501.5200, L501.9520, L500.2500, L500.4100, L100.0500 #### [facility] [address] [place], [address] Urea nitrogen [Mass/Vol] 23 mg/dL High 4-19 [facility] Comment on above: Order Comment: Order Date: 01/01/25 Order Info: 0667-1 - BMP Order Info: [id number] - LIPID Order Info: [id number] - MG Order Info: 3016-3 - TSH Performed By: #### L 501.5200, L501.9520, L500.2500, L500.4100, L100.0500 #### [facility] [address] [place], [place], [id number] CBC-Complete Blood Cnt No Di ffon 06-22-2025 Erythrocyte distribution width (RBC) [Ratio] 12.9 % Normal 11.6-14.6 [facility] Comment on above: Order Comment: Order Date: 01/01/25 Order Info: [id number] - CBC Performed By: #### L 501.5200, L501.9520, L500.2500, L500.4100, L100.0500 #### [facility] [address] [place], [address] Hematocrit (Bld) [Volume fraction] 34.0 % Low 37-47 [facility] Comment on above: Order Comment: Order Date: 01/01/25 Order Info: [id number] - CBC Performed By: #### L 501.5200, L501.9520, L500.2500, L500.4100, L100.0500 #### [facility] [address] [place], [address] Hemoglobin (Bld) [Mass/Vol] 11.4 g/dL Low 12.0-15.0 [facility] Comment on above: Order Comment: Order Date: 01/01/25 Order Info: [id number] - CBC Performed By: #### L 501.5200, L501.9520, L500.2500, L500.4100, L100.0500 #### [facility] [address] [place], [address] MCH (RBC) [Entitic mass] 30.9 pg Normal 27.0-32.0 [facility] Comment on above: Order Comment: Order Date: 01/01/25 Order Info: [id number] - CBC Performed By: #### L 501.5200, L501.9520, L500.2500, L500.4100, L100.0500 #### [facility] [address] [place], [address] MCHC (RBC) [Mass/Vol] 33.5 g/dL Normal 32-36 [facility] Comment on above: Order Comment: Order Date: 01/01/25 Order Info: [id number] - CBC Performed By: #### L 501.5200, L501.9520, L500.2500, L500.4100, L100.0500 #### [facility] [address] [place], [address] MCV (RBC) [Entitic vol] 92.1 fL Normal 81-99 [facility] Comment on above: Order Comment: Order Date: 01/01/25 Order Info: [id number] - CBC Performed By: #### L 501.5200, L501.9520, L500.2500, L500.4100, L100.0500 #### [facility] [address] [place], [address] Platelet mean volume (Bld) [Entitic vol] 11.3 fL Normal 6.2-12.0 [facility] Comment on above: Order Comment: Order Date: 01/01/25 Order Info: [id number] - CBC Performed By: #### L 501.5200, L501.9520, L500.2500, L500.4100, L100.0500 #### [facility] [address] [place], [address] Platelets (Bld) [#/Vol] 147 10*3/uL Low 150-450 [facility] Comment on above: Order Comment: Order Date: 01/01/25 Order Info: [id number] - CBC Performed By: #### L 501.5200, L501.9520, L500.2500, L500.4100, L100.0500 #### [facility] [address] [place], [address] RBC (Bld) [#/Vol] 3.69 10*6/uL Low 4.2-5.4 [facility] Comment on above: Order Comment: Order Date: 01/01/25 Order Info: [id number] - CBC Performed By: #### L 501.5200, L501.9520, L500.2500, L500.4100, L100.0500 #### [facility] [address] [place], [address] RDW SD 43.2 fl Normal 35.1-43.9 [facility] Comment on above: Order Comment: Order Date: 01/01/25 Order Info: [id number] - CBC Performed By: #### L 501.5200, L501.9520, L500.2500, L500.4100, L100.0500 #### [facility] [address] [place], [address] WBC (Bld) [#/Vol] 5.1 10*3/uL Normal 4.4-11.0 [facility] Comment on above: Order Comment: Order Date: 01/01/25 Order Info: [id number] - CBC Performed By: #### L 501.5200, L501.9520, L500.2500, L500.4100, L100.0500 #### [facility] [address] [place], [address] Calculated very low density lipoprotein (VLDL) cholesterol measurementOrdered By: Joel Anderson on 06-22-2025 Calculated very low density lipoprotein (VLDL) cholesterol measurement 11 mg/dL 5-40 [facility] Carbon dioxide, total [Moles /volume] in Central venous bloodOrdered By: Joel Anderson on 06-22-2025 CO2 [Moles/Vol] 23.1 mmol/L 21.0-32.0 [facility] Chloride assayOrdered By: Yamil Anderson on 06-22-2025 Chloride [Moles/Vol] 104 mmol/L 98-108 [facility] Erythrocyte distribution wid th ratioOrdered By: Joel Anderson on 06-22-2025 Erythrocyte distribution width (RBC) [Ratio] 12.9 % 11.6-14.6 [facility] Erythrocyte distribution wid th standard deviationOrdered By: Joel Anderson on 06-22-2025 Erythrocyte distribution width (RBC) [Ratio] 43.2 fl 35.1-43.9 [facility] Glomerular filtration rate ( GFR) estimation/1.73 sq m using serum, plasma, or whole bOrdered By: Joel Anderson on 06-22-2025 GFR/1.73 sq M.predicted among non-blacks MDRD (S/P/Bld) [Vol rate/Area] 54 mL/min/{1.73_m2} Low >60 [facility] Comment on above: mL/min/1.73m2 CKD-EP I Creatinine Equation (2020) Hematocrit Auto (Bld) [Volum e fraction]Ordered By: Joel Anderson on 06-22-2025 Hematocrit (Bld) [Volume fraction] 34.0 % Low 37-47 [facility] Hemoglobin measurementOrdere d By: Joel Anderson on 06-22-2025 Hemoglobin (Bld) [Mass/Vol] 11.4 g/dL Low 12.0-15.0 [facility] LDL calc ser/plasOrdered By: Joel Anderson on 06-22-2025 Cholesterol in LDL [Mass/Vol] 119 mg/dL [facility] Comment on above: Yfchlxvtem=541-958 m g/dL & Higher Pjor=951 mg/dL or greaterFriedwald Equation for LDL-C Lipid Profileon 06-22-2025 CHOL:HDL 2.84 Normal [facility] Comment on above: Order Comment: Order Date: 01/01/25 Order Info: 06-1 - BMP Order Info: [id number] - LIPID Order Info: [id number] - MG Order Info: [id number] - TSH Performed By: #### L 501.5200, L501.9520, L500.2500, L500.4100, L100.0500 #### [facility] [address] [place], [place], [address] Cholesterol [Mass/Vol] 201 mg/dL Normal <=200 [facility] Comment on above: Order Comment: Order Date: 01/01/25 Order Info: 666- - BMP Order Info: [id number] - LIPID Order Info: [id number] - MG Order Info: [id number] - TSH Result Comment: Chol esterol level, Desirable <200 mg/dL Borderline high cholesterol 200-239 mg/dL High cholesterol >=240 mg/dL Recommendations of the NCEP Adult Treatment Panel for the following risk-cutoff thresholds for the [place] population. Performed By: #### L 501.5200, L501.9520, L500.2500, L500.4100, L100.0500 #### [facility] [address] [place], [place], [address] Cholesterol in HDL [Mass/Vol] 71 mg/dL Normal [facility] Comment on above: Order Comment: Order Date: 01/01/25 Order Info: [id number] - BMP Order Info: [id number] - LIPID Order Info: [id number] - MG Order Info: [id number] - TSH Result Comment: Beena onal Cholesterol Education Program (NCEP) guidelines: <40 mg/dL: Low HDL-cholesterol (major risk factor for CHD) >= 60 mg/dL: High HDL-cholesterol (negative risk factor for CHD) HDL-cholesterol is affected by a number of factors, e.g. smoking, exercise, hormones, sex and age. Performed By: #### L 501.5200, L501.9520, L500.2500, L500.4100, L100.0500 #### [facility] [address] [place], [address] Cholesterol in LDL [Mass/Vol] 119 mg/dL Normal [facility] Comment on above: Order Comment: Order Date: 01/01/25 Order Info: 06- - BMP Order Info: [id number] - LIPID Order Info: [id number] - MG Order Info: 301-3 - TSH Result Comment: Bord wkrdzm=613-672 mg/dL Higher Amum=874 mg/dL or greater Friedwald Equation for LDL-C Performed By: #### L 501.5200, L501.9520, L500.2500, L500.4100, L100.0500 #### [facility] [address] [place], [address] Cholesterol in VLDL [Mass/Vol] 11 mg/dL Normal 5-40 [facility] Comment on above: Order Comment: Order Date: 01/01/25 Order Info: [id number]- - BMP Order Info: [id number] - LIPID Order Info: [id number] - MG Order Info: [id number] - TSH Performed By: #### L 501.5200, L501.9520, L500.2500, L500.4100, L100.0500 #### [facility] [address] [place], [address] Triglyceride [Mass/Vol] 57 mg/dL Normal [facility] Comment on above: Order Comment: Order Date: 01/01/25 Order Info: [id number]- - BMP Order Info: [id number] - LIPID Order Info: [id number] - MG Order Info: [id number] - TSH Result Comment: The drugs N-Acetylcysteine and Metamizole may falsely depress this assay. Normal range: <150 mg/dL Borderline High: 150-199 mg/dL High: 200-499 mg/dL Very High: >500 mg/dL Performed By: #### L 501.5200, L501.9520, L500.2500, L500.4100, L100.0500 #### [facility] [address] [place], [place], [address] MCV (mean corpuscular volume ) determinationOrdered By: Joel Anderson on 06-22-2025 MCV (RBC) [Entitic vol] 92.1 fL 81-99 [facility] Magnesiumon 06-22-2025 Magnesium [Mass/Vol] 2.1 mg/dL Normal 1.5-2.2 [facility] Comment on above: Order Comment: Order Date: 01/01/25 Order Info: [id number] - BMP Order Info: [id number] - LIPID Order Info: [id number] - MG Order Info: [id number] - TSH Performed By: #### L 501.5200, L501.9520, L500.2500, L500.4100, L100.0500 #### [facility] [address] [place], [address] Magnesium measurement (mass/ volume)Ordered By: Joel Anderson on 06-22-2025 Magnesium (Unsp spec) [Mass/Vol] 2.1 mg/dL 1.5-2.2 [facility] Mean corpuscular hemoglobin (MCH) determinationOrdered By: Joel Anderson on 06-22-2025 MCH (RBC) [Entitic mass] 30.9 pg 27.0-32.0 [facility] Mean corpuscular hemoglobin concentration (MCHC) determinationOrdered By: Joel Anderson on 06-22-2025 MCHC (RBC) [Mass/Vol] 33.5 g/dL 32-36 [facility] Mean platelet volume determi nationOrdered By: Joel Anderson on 06-22-2025 Platelet mean volume (Bld) [Entitic vol] 11.3 fL 6.2-12.0 [facility] Platelet countOrdered By: Yamil Anderson on 06-22-2025 Platelets (Bld) [#/Vol] 147 10*3/uL Low 150-450 [facility] Potassium measurement (mass/ volume)Ordered By: Joel Anderson on 06-22-2025 Potassium (Unsp spec) [Mass/Vol] 4.3 mmol/L 3.3-5.1 [facility] RBC Auto (Bld) [#/Vol]Ordere d By: Joel Anderson on 06-22-2025 RBC (Bld) [#/Vol] 3.69 10*6/uL Low 4.2-5.4 [facility] Screening total cholesterol/ high density lipoprotein (HDL) cholesterol ratioOrdered By: Joel Anderson on 06-22-2025 Cholesterol.total/Ivonne sterol in HDL [Mass ratio] 2.84 {ratio} [facility] Serum creatinine measurement (mass/volume)Ordered By: Joel Anderson on 06-22-2025 Creatinine [Mass/Vol] 1.11 mg/dL 0.70-1.20 [facility] Serum glucose measurement (m ass/volume)Ordered By: Joel Anderson on 06-22-2025 Glucose [Mass/Vol] 101 mg/dL High 70-99 [facility] Serum or plasma calcium tripp urement (mass/volume)Ordered By: Joel Anderson on 06-22-2025 Calcium [Mass/Vol] 9.3 mg/dL 7.6-11.0 [facility] Serum or plasma cholesterol in HDL measurement (mass/volume)Ordered By: Joel Anderson on 06-22-2025 Cholesterol in HDL [Mass/Vol] 71 mg/dL >40 [facility] Comment on above: National Cholesterol Education Program (NCEP) guidelines:<40 mg/dL: Low HDL-cholesterol (major risk factor for CHD)>= 60 mg/dL: High HDL-cholesterol (negative risk factor for CHD)HDL-cholesterol is affected by a number of factors, e.g. smoking, exercise, hormones, sex and age. Serum or plasma cholesterol measurement (mass/volume)Ordered By: Joel Anderson on 06-22-2025 Cholesterol [Mass/Vol] 201 mg/dL <201 [facility] Comment on above: Cholesterol level, D esirable <200 mg/dLBorderline high cholesterol 200-239 mg/dLHigh cholesterol >=240 mg/dLRecommendations of the NCEP Adult Treatment Panel for the following risk-cutoff thresholds for the [place] population. Serum or plasma urea nitroge n measurement (mass/volume)Ordered By: Joel Anderson on 06-22-2025 Urea nitrogen [Mass/Vol] 23 mg/dL High 4-19 [facility] Sodium levelOrdered By: Octavio Anderson on 06-22-2025 Sodium [Moles/Vol] 139 mmol/L 133-145 [facility] T4 freeOrdered By: Tao Anderson on 06-22-2025 Free T4 [Mass/Vol] 1.10 ng/dL 0.76-1.46 [facility] TSH DL <= 0.005 mIU/L QnOrde red By: Joel Anderson on 06-22-2025 TSH Qn 5.580 uIU/mL High 0.300-4.200 [facility] Thyroid Stim Hormone (TSH)on 06-22-2025 TSH 5.580 uIU/mL High 0.300-4.200 [facility] Comment on above: Order Comment: Order Date: 01/01/25 Order Info: [id number] - BMP Order Info: [id number] - LIPID Order Info: [id number] - MG Order Info: [id number] - TSH Performed By: #### L 501.5200, L501.9520, L500.2500, L500.4100, L100.0500 #### [facility] [address] [place] [address]. [place], [address] Triglycerides measurementOrd ered By: Joel Anderson on 06-22-2025 Triglyceride [Mass/Vol] 57 mg/dL <199 [facility] Comment on above: The drugs N-Acetylcy steine and Metamizole may falsely depress this assay. Normal range: <150 mg/dLBorderline High: 150-199 mg/dLHigh: 200-499 mg/dLVery High: >500 mg/dL White blood cell (WBC) count Ordered By: Joel Anderson on 06-22-2025 WBC (Bld) [#/Vol] 5.1 10*3/uL 4.4-11.0 [facility] Anion gap in Serum or Plasma Ordered By: Lashon Baltazar on 05-19-2025 Anion gap [Moles/Vol] 10 mmol/L 03-22 [facility] BUN/creatinine ratioOrdered By: Lashon Baltazar on 05-19-2025 Urea nitrogen/Creatinine [Mass ratio] 19.3 mg/mg - [facility] Basic Metabolic Profile (BMP )on 05-19-2025 BUN/CRE 19.3 RATIO Normal 08-27 [facility] Comment on above: Performed By: #### L 500.2500 ####[facility] [address] [place], [address] Calcium [Mass/Vol] 9.5 mg/dL Normal 7.6-11.0 [facility] Comment on above: Performed By: #### L 500.2500 ####[facility] [address] [place], [address] Chloride [Moles/Vol] 103 mmol/L Normal 98-108 [facility] Comment on above: Performed By: #### L 500.2500 ####[facility] [address] [place], [address] CO2 [Moles/Vol] 23.2 mmol/L Normal 21.0-32.0 [facility] Comment on above: Performed By: #### L 500.2500 ####[facility] [address] [place], [address] Creatinine [Mass/Vol] 1.10 mg/dL Normal 0.70-1.20 [facility] Comment on above: Performed By: #### L 500.2500 ####[facility] [address] [place], [address] GAP 10 Normal - [facility] Comment on above: Performed By: #### L 500.2500 ####[facility] [address] [place], [address] GFR/1.73 sq M.predicted among non-blacks MDRD (S/P/Bld) [Vol rate/Area] 54 mL/min/{1.73_m2} Low >60 [facility] Comment on above: Result Comment: mL/m in/1.73m2 CKD-EPI Creatinine Equation (2020) Performed By: #### L 500.2500 ####[facility] [address] [place], [address] Glucose [Mass/Vol] 100 mg/dL High 70-99 [facility] Comment on above: Performed By: #### L 500.2500 ####[facility] [address] [place], [address] Potassium [Moles/Vol] 4.5 mmol/L Normal 3.3-5.1 [facility] Comment on above: Performed By: #### L 500.2500 ####[facility] [address] [place], [address] Sodium [Moles/Vol] 137 mmol/L Normal 133-145 [facility] Comment on above: Performed By: #### L 500.2500 ####[facility] [address] [place], [address] Urea nitrogen [Mass/Vol] 21 mg/dL High 4-19 [facility] Comment on above: Performed By: #### L 500.2500 ####[facility] [address] [place], [address] Carbon dioxide, total [Moles /volume] in Central venous bloodOrdered By: Lashon Baltazar on 05-19-2025 CO2 [Moles/Vol] 23.2 mmol/L 21.0-32.0 [facility] Chloride assayOrdered By: Olivia Baltazar on 05-19-2025 Chloride [Moles/Vol] 103 mmol/L 98-108 [facility] Glomerular filtration rate ( GFR) estimation/1.73 sq m using serum, plasma, or whole bOrdered By: Lashon Baltazar on 05-19-2025 GFR/1.73 sq M.predicted among non-blacks MDRD (S/P/Bld) [Vol rate/Area] 54 mL/min/{1.73_m2} Low >60 [facility] Comment on above: mL/min/1.73m2 CKD-EP I Creatinine Equation (2020) Potassium measurement (mass/ volume)Ordered By: Lashon Baltazar on 05-19-2025 Potassium (Unsp spec) [Mass/Vol] 4.5 mmol/L 3.3-5.1 [facility] Serum creatinine measurement (mass/volume)Ordered By: Lashon Baltazar on 05-19-2025 Creatinine [Mass/Vol] 1.10 mg/dL 0.70-1.20 [facility] Serum glucose measurement (m ass/volume)Ordered By: Lashon Baltazar on 05-19-2025 Glucose [Mass/Vol] 100 mg/dL High 70-99 [facility] Serum or plasma calcium tripp urement (mass/volume)Ordered By: Lashon Baltazar on 05-19-2025 Calcium [Mass/Vol] 9.5 mg/dL 7.6-11.0 [facility] Serum or plasma urea nitroge n measurement (mass/volume)Ordered By: Lashon Baltazar on 05-19-2025 Urea nitrogen [Mass/Vol] 21 mg/dL High 4-19 [facility] Sodium levelOrdered By: Endy Baltazar on 05-19-2025 Sodium [Moles/Vol] 137 mmol/L 133-145 [facility] Cardiology Visit Reporton Cardiology Visit Report [facility] [address] [place] [address] [address] [place] [address] OFFICE VISIT Date of Service: 05/03/25 MR#: [id number] Acct: [id number] Name: RADHA THOMAS Rep #: [id number] : 1955 Provider: PAOLO Ruiz Age/Sex: 69/F Location: [facility] Status: Signed HPI HPI History [...] on a beta-clemente and anticoagulation with a [id number] score of 3. Patient did undergo a [...] beats. Patient was seen by EP at [facility]. 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 Normal [facility] ECG 12-LEADon 04-30-2025 ECG 12-LEAD Ventricular Rate 70 Atrial Rate 70 P-R Interval 360 QRS Duration 86 Q-T Interval 416 QTC Calculation(Bazett) 449 P [place] 38 R [place] 44 T [place] 61 QRS Count 12 Q Onset 223 P Onset 43 P Offset 115 T Offset 431 QTC Fredericia 438 Diagnosis Electronic atrial pacemaker When compared with ECG of 10-JAN-2025 15:05, Electronic atrial pacemaker has replaced Electronic ventricular pacemaker Confirmed by Lashonda Beltrán ([id number]) on 05/01/2025 9:28:25 AM Normal [facility] Bilirubin directon 5 Bilirubin.direct [Mass/Vol] 0.26 mg/dL 0.00-0.30 [facility] Bilirubin, totalon 5 Bilirubin [Mass/Vol] 0.62 mg/dL 0.00-1.30 [facility] - Chemistry and C hemistry - challengeon 01-12-2025 AST [Catalytic activity/Vol] 24 U/L <32 [facility] Liver Profileon 01-12-2025 Albumin [Mass/Vol] 4.2 g/dL Normal 3.4-4.8 [facility] Comment on above: Performed By: #### L 501.9520, L500.3400, L506.0400 ####[facility] [address] [place], [place], [id number] ALK PHOS 83 U/L Normal 35-104 [facility] Comment on above: Performed By: #### L 501.9520, L500.3400, L506.0400 ####[facility] [address] [place], [place], [id number] ALT [Catalytic activity/Vol] 23 U/L Normal <=34 [facility] Comment on above: Performed By: #### L 501.9520, L500.3400, L506.0400 ####[facility] [address] [place], [address] AST [Catalytic activity/Vol] 24 U/L Normal <=31 [facility] Comment on above: Performed By: #### L 501.9520, L500.3400, L506.0400 ####[facility] [address] [place], [address] Bilirubin [Mass/Vol] 0.62 mg/dL Normal 0.00-1.30 [facility] Comment on above: Performed By: #### L 501.9520, L500.3400, L506.0400 ####[facility] [address] [place], [address] Bilirubin.direct [Mass/Vol] 0.26 mg/dL Normal 0.00-0.30 [facility] Comment on above: Performed By: #### L 501.9520, L500.3400, L506.0400 ####[facility] [address] [place], [address] Globulin (S) [Mass/Vol] 3.1 g/dL Normal 2.2-4.2 [facility] Comment on above: Performed By: #### L 501.9520, L500.3400, L506.0400 ####[facility] [address] [place], [address] T PROT 7.3 g/dL Normal 5.9-8.4 [facility] Comment on above: Performed By: #### L 501.9520, L500.3400, L506.0400 ####[facility] [address] [place], [address] Serum globulin measurementon 01-12-2025 Globulin (S) [Mass/Vol] 3.1 g/dL 2.2-4.2 [facility] Serum or plasma alanine osborn otransferase (ALT) measurementon 01-12-2025 ALT [Catalytic activity/Vol] 23 U/L <35 [facility] Serum or plasma albumin tripp urement (mass/volume)on 01-12-2025 Albumin [Mass/Vol] 4.2 g/dL 3.4-4.8 [facility] Serum or plasma alkaline chioma sphatase measurementon 01-12-2025 ALP [Catalytic activity/Vol] 83 U/L 35-104 [facility] T4 Free Directon 01-12-2025 T4 FREE DIRECT 1.50 ng/dL High 0.76-1.46 [facility] Comment on above: Performed By: #### L 501.9520, L500.3400, L506.0400 ####[facility] [address] [place], [place], [address] T4 freeon 01-12-2025 Free T4 [Mass/Vol] 1.50 ng/dL High 0.76-1.46 [facility] TSH DL <= 0.005 mIU/L Qnon 0 01-12-2025 Thyroid Stimulating Hormone (TSH) 3.370 uIU/mL 0.300-4.200 [facility] TSH Qn 3.370 uIU/mL 0.300-4.200 [facility] Thyroid Stim Hormone (TSH)on 01-12-2025 TSH 3.370 uIU/mL Normal 0.300-4.200 [facility] Comment on above: Performed By: #### L 501.9520, L500.3400, L506.0400 ####[facility] [address] [place], [address] Total proteinon 01-12-2025 Protein [Mass/Vol] 7.3 g/dL 5.9-8.4 [facility] ECG 12-LEADon 01-10-2025 ECG 12-LEAD Ventricular Rate 70 Atrial Rate 70 QRS Duration 180 Q-T Interval 484 QTC Calculation(Bazett) 522 R [place] -71 T [place] 101 QRS Count 12 Q Onset 196 T Offset 438 QTC Fredericia 509 Diagnosis AV sequential or dual chamber electronic pacemaker When compared with ECG of 14-DEC-2024 15:26, Electronic ventricular pacemaker has replaced Electronic atrial pacemaker Confirmed by Lashonda Beltrán ([id number]) on 01/10/2025 4:36:47 PM Normal [facility] Basic metabolic 2000 panelon 12-15-2024 Anion gap [Moles/Vol] 11 mmol/L 10 - 2 0 mmol/L [facility] Calcium [Mass/Vol] 8.9 mg/dL 8.6 - 10. 3 mg/dL [facility] Chloride [Moles/Vol] 106 mmol/L 98 - 10 7 mmol/L [facility] CO2 [Moles/Vol] 21 mmol/L 21 - 32 mmol/L [facility] Creatinine [Mass/Vol] 0.94 mg/dL 0.50 - 1.05 mg/dL [facility] GFR/1.73 sq M.predicted among non-blacks MDRD (S/P/Bld) [Vol rate/Area] 66 mL/min/{1.73_m2} - PINF [facility] Comment on above: Calculations of denia mated GFR are performed using the 2020 CKD-EPI Study Refit equation without the race variable for the IDMS-Traceable creatinine methods. https://jasn.asnjournals.org/content//ASN.2020 893848 Glucose [Mass/Vol] 163 mg/dL High 74 - 99 mg/dL [facility] Interpretation and review of laboratory results Abnormal [facility] Potassium [Moles/Vol] 4.2 mmol/L 3.5 - 5.3 mmol/L [facility] Sodium [Moles/Vol] 134 mmol/L Low 136 - 145 mmol/L [facility] Urea nitrogen [Mass/Vol] 18 mg/dL 6 - 23 mg/dL [facility] Anion gap [Moles/Vol] 11 mmol/L Normal 10-20 [facility] Comment on above: Performed By: #### 2 4321-2 #### LUKE KIMBLE ([id number]) [facility] ([facility] [address] [place] [address] Calcium [Mass/Vol] 8.9 mg/dL Normal 8.6-10.3 [facility] Comment on above: Performed By: #### 2 4321-2 #### LUKE KIMBLE ([id number]) [facility] ([facility] [address] [place] [address] Chloride [Moles/Vol] 106 mmol/L Normal 98-107 [facility] Comment on above: Performed By: #### 2 4321-2 #### LUKE KIMBLE ([id number]) [facility] [place] [address] [place] [address] CO2 [Moles/Vol] 21 mmol/L Normal 21-32 [facility] Comment on above: Performed By: #### 2 4321-2 #### LUKE KIMBLE ([id number]) [facility] ([facility] [address] [place] [address] Creatinine [Mass/Vol] 0.94 mg/dL Normal 0.50-1.05 [facility] Comment on above: Performed By: #### 2 4320-2 #### LUKE KIMBLE ([id number]) [facility] [place] [address] [place] [address] Glomerular filtration rate/1.73 sq M.predicted 66 mL/min/1.73m*2 Normal >60 [facility] Comment on above: Result Comment: Calc ulations of estimated GFR are performed using the 2020 CKD-EPI Study Refit equation without the race variable for the IDMS-Traceable creatinine methods. https://jasn.asnjournals.org/content/early/ASN.2020 301764 Performed By: #### 2 4321-2 #### LUKE KIMBLE ([id number]) [facility] ([facility] [address] [place] [address] Glucose [Mass/Vol] 163 mg/dL High 74-99 [facility] Comment on above: Performed By: #### 2 4321-2 #### LUKE KIMBLE ([id number]) [facility] [address] [place] [address] Potassium [Moles/Vol] 4.2 mmol/L Normal 3.5-5.3 [facility] Comment on above: Performed By: #### 2 4321-2 #### LUKE KIMBLE ([id number]) [facility] [address] [place] [address] Sodium [Moles/Vol] 134 mmol/L Low 136-145 [facility] Comment on above: Performed By: #### 2 4321-2 #### LUKE KIMBLE ([id number]) [facility] [address] [place] [address] Urea nitrogen [Mass/Vol] 18 mg/dL Normal 6-23 [facility] Comment on above: Performed By: #### 2 4321-2 #### LUKE KIMBLE ([id number]) [facility] ([facility] [address] [place] [address] CBC panel Auto (Bld)on 12-15 Erythrocyte distribution width (RBC) [Ratio] 12.8 % 11.5 - 14.5 % [facility] Hematocrit (Bld) [Volume fraction] 36.3 % 36.0 - 46.0 % [facility] Hemoglobin (Bld) [Mass/Vol] 11.7 g/dL Low 12.0 - 16.0 g/dL [facility] Interpretation and review of laboratory results Abnormal [facility] MCH (RBC) [Entitic mass] 29.7 pg 26.0 - 34.[address] [facility] MCHC (RBC) [Mass/Vol] 32.2 g/dL 32.0 - 36.0 g/dL [facility] MCV (RBC) [Entitic vol] 92 fL 80 - [address] [facility] Nucleated RBC/100 WBC (Bld) [Ratio] 0 % [facility] Platelets (Bld) [#/Vol] 142 10*3/uL [facility] RBC (Bld) [#/Vol] 3.94 10*6/uL Low [facility] WBC (Bld) [#/Vol] 7.4 10*3/uL [facility] Erythrocyte distribution width (RBC) [Ratio] 12.8 % Normal 11.5-14.5 [facility] Comment on above: Performed By: #### 5 8410-2 #### LUKE KIMBLE ([id number]) [facility] ([facility] [address] [place] [address] Hematocrit (Bld) [Volume fraction] 36.3 % Normal 36.0-46.0 [facility] Comment on above: Performed By: #### 5 8410-2 #### LUKE KIMBLE ([id number]) [facility] ([facility] [address] [place] [address] Hemoglobin (Bld) [Mass/Vol] 11.7 g/dL Low 12.0-16.0 [facility] Comment on above: Performed By: #### 5 8410-2 #### LUKE KIMBLE ([id number]) [facility] ([facility] [address] [place] [address] MCH (RBC) [Entitic mass] 29.7 pg Normal 26.0-34.0 [facility] Comment on above: Performed By: #### 5 8410-2 #### LKUE KIMBLE ([id number]) [facility] ([facility] [address] [place] [address] MCHC (RBC) [Mass/Vol] 32.2 g/dL Normal 32.0-36.0 [facility] Comment on above: Performed By: #### 5 8410-2 #### LUKE KIMBLE ([id number]) [facility] ([facility] [address] [place] [place] [id number] MCV (RBC) [Entitic vol] 92 fL Normal 80-100 U [facility] Comment on above: Performed By: #### 5 8410-2 #### LUKE KIMBLE ([id number]) [facility] ([facility] [address] [place] [id number] Nucleated RBC/100 WBC (Bld) [Ratio] 0.0 /100 WBCs Normal 0.0-0.0 [facility] Comment on above: Performed By: #### 5 8410-2 #### LUKE KIMBLE ([id number]) [facility] ([facility] [address] [place] [address] Platelets (Bld) [#/Vol] 142 x10*3/uL Low 150-450 [facility] Comment on above: Performed By: #### 5 8410-2 #### LUKE KIMBLE ([id number]) [facility] ([facility] [address] [place] [address] RBC (Bld) [#/Vol] 3.94 x10*6/uL Low 4.00-5.20 [facility] Comment on above: Performed By: #### 5 8410-2 #### LUKE KIMBLE ([id number]) [facility] [place] [address] [place] [address] WBC (Bld) [#/Vol] 7.4 x10*3/uL Normal 4.4-11.3 [facility] Comment on above: Performed By: #### 5 8410-2 #### LUKE KIMBLE ([id number]) [facility] ([facility] [address] [place] [address] XR CHEST 2 VIEWSon 5 XR CHEST 2 VIEWS Interpreted By: Candido Reza, STUDY: XR CHEST 2 VIEWS; 12/15/2024 8:35 am INDICATION: Signs/Symptoms:s/p device implant r/o pneumothorax and ensure lead placement intact. COMPARISON: 10/16/2024 ACCESSION NUMBER(S): [id number] ORDERING CLINICIAN: HELEN ORTIZ FINDINGS: CARDIOMEDIASTINAL SILHOUETTE: Cardiomediastinal silhouette is normal in size and configuration. Cardiac pacer. LUNGS: Lungs are clear. ABDOMEN: No remarkable upper abdominal findings. BONES: No acute osseous changes. Discogenic degenerative changes. IMPRESSION: 1. No evidence of acute cardiopulmonary process. MACRO: None Signed by: Candido Reza 12/15/2024 9:18 AM Dictation workstation: [id number] [facility] Comment on above: Order Comment: Wet r ead. Discharge pending film. XR Chest 2 Viewson 5 1. No evidence of acute cardiopulmonary process. MACRO: None Signed by: Candido Reza 12/15/2024 9:18 AM Dictation workstation: [id number] Interpreted By: Candido Reza, STUDY: XR CHEST 2 VIEWS; 12/15/2024 8:35 am INDICATION: Signs/Symptoms:s/p device implant r/o pneumothorax and ensure lead placement intact. COMPARISON: 10/16/2024 ACCESSION NUMBER(S): [id number] ORDERING CLINICIAN: HELEN ORTZI FINDINGS: CARDIOMEDIASTINAL SILHOUETTE: Cardiomediastinal silhouette is normal [...] lead placement intact. COMPARISON: 10/16/2024 ACCESSION NUMBER(S): [id number] ORDERING CLINICIAN: HELEN ORTIZ FINDINGS: CARDIOMEDIASTINAL SILHOUETTE: Cardiomediastinal silhouette is normal in size and configuration. Cardiac pacer. LUNGS: Lungs are clear. ABDOMEN: No remarkable upper abdominal findings. BONES: No acute osseous changes. Discogenic degenerative changes. IMPRESSION: 1. No evidence of acute cardiopulmonary process. MACRO: None Signed by: Candido Reza 12/15/2024 9:18 AM Dictation workstation: [id number] [facility] Work Phone: Radiology Study observation (narrative) [facility] Work Phone: XR Chest 2 ViewsOrdered By: Candido Reza on 12-15-[address] [facility] Work Phone: ECG 12-LEADon 12-14-2024 ECG 12-LEAD Ventricular Rate 70 Atrial Rate 68 QRS Duration 82 Q-T Interval 390 QTC Calculation(Bazett) 421 R [place] 24 T [place] 47 QRS Count 12 Q Onset 224 T Offset 419 QTC Fredericia 410 Diagnosis Electronic atrial pacemaker When compared with ECG of 15-NOV-2024 14:46, Electronic atrial pacemaker has replaced Atrial fibrillation Confirmed by Lashonda Beltrán ([id number]) on 12/28/2024 8:36:37 AM Normal [facility] Electrophysiology studyOrder ed By: Lashonda Beltrán on 12-14-[address] [facility] Work Phone: Cardiology Visit Reporton Cardiology Visit Report [facility] [address] [place] [address] OFFICE VISIT Date of Service: 12/13/24 MR#: [id number] Acct: [id number] Name: RADHA THOMAS Rep #: [id number] : 1955 Provider: PAOLO Ruiz Age/Sex: 69/F Location: [facility] Status: Signed HPI HPI History of Present [...] on a beta-clemente and anticoagulation with a [id number] score of 3. Patient did undergo a [...] beats. Patient was seen by EP at [facility]. 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 Normal [facility] Basic Metabolic Profile (BMP )on 12-06-2024 BUN/CRE 14.4 RATIO Normal 10-20 [facility] Comment on above: Order Comment: BRIAN LANZA WANTS RESULTS TO GO TO DR. RYAN AND DR ANDERSON Performed By: #### L 500.2500, L100.0500 #### [facility] [address] [place], [address] CA,Total 9.0 mg/dL Normal 8.5-10.1 [facility] Comment on above: Order Comment: BRIAN LANZA WANTS RESULTS TO GO TO DR. RYAN AND DR ANDERSON Performed By: #### L 500.2500, L100.0500 #### [facility] [address] [place], [address] Chloride [Moles/Vol] 108 mmol/L High 98-107 [facility] Comment on above: Order Comment: BRIAN LANZA WANTS RESULTS TO GO TO DR. RYAN AND DR ANDERSON Performed By: #### L 500.2500, L100.0500 #### [facility] [address] [place], [address] CO2 [Moles/Vol] 26.0 mmol/L Normal 21.0-32.0 [facility] Comment on above: Order Comment: BRIAN LANZA WANTS RESULTS TO GO TO DR. RYAN AND DR ANDERSON Performed By: #### L 500.2500, L100.0500 #### [facility] [address] [place], [address] Creatinine [Mass/Vol] 0.90 mg/dL Normal 0.55-1.02 [facility] Comment on above: Order Comment: BRIAN LANZA WANTS RESULTS TO GO TO DR. RYAN AND DR ANDERSON Result Comment: The validity of the calculated GFR GFRAA in patients over 70 years has not been determined. Clinical correlation is essential. Performed By: #### L 500.2500, L100.0500 #### [facility] [address] [place], [address] EST GFR - AA 80 mL/min Normal >60 [facility] Comment on above: Order Comment: BRIAN LANZA WANTS RESULTS TO GO TO DR. RYAN AND DR ANDERSON Result Comment: Afri can Afghan GFR Calc Performed By: #### L 500.2500, L100.0500 #### [facility] [address] [place], [address] GAP 6 Normal 5-15 [facility] Comment on above: Order Comment: BRIAN LANZA WANTS RESULTS TO GO TO DR. RYAN AND DR ANDERSON Performed By: #### L 500.2500, L100.0500 #### [facility] [address] [place], [address] GFR/1.73 sq M.predicted among non-blacks MDRD (S/P/Bld) [Vol rate/Area] 66 mL/min/{1.73_m2} Normal >60 [facility] Comment on above: Order Comment: BRIAN LANZA WANTS RESULTS TO GO TO DR. RYAN AND DR ANDERSON Result Comment: Non- GFR Calc Performed By: #### L 500.2500, L100.0500 #### [facility] [address] [place], [address] Glucose [Mass/Vol] 105 mg/dL Normal 74-106 [facility] Comment on above: Order Comment: BRIAN LANZA WANTS RESULTS TO GO TO DR. RYAN AND DR ANDERSON Result Comment: Fast ing Glucose result from 100 to 125 mg/dL suggests IMPAIRED HOMEOSTASIS per A.D.A. criteria. Performed By: #### L 500.2500, L100.0500 #### [facility] [address] [place], [address] Potassium [Moles/Vol] 4.3 mmol/L Normal 3.5-5.1 [facility] Comment on above: Order Comment: BRIAN LANZA WANTS RESULTS TO GO TO DR. RYAN AND DR ANDERSON Performed By: #### L 500.2500, L100.0500 #### [facility] [address] [place], [address] Sodium [Moles/Vol] 140 mmol/L Normal 136-145 [facility] Comment on above: Order Comment: BRIAN LANZA WANTS RESULTS TO GO TO DR. RYAN AND DR ANDERSON Performed By: #### L 500.2500, L100.0500 #### [facility] [address] [place], [address] Urea nitrogen [Mass/Vol] 13 mg/dL Normal 7-18 [facility] Comment on above: Order Comment: BRIAN POOL WANTS RESULTS TO GO TO DR. RYAN AND DR ANDERSON Performed By: #### L 500.2500, L100.0500 #### [facility] [address] [place], [address] Blood urea nitrogen (BUN)/cr eatinine ratioon 12-06-2024 Urea nitrogen/Creatinine [Mass ratio] 14.4 mg/mg 10-20 [facility] CBC-Complete Blood Cnt No Di adrianon 12-06-2024 Erythrocyte distribution width (RBC) [Ratio] 12.6 % Normal 11.6-14.6 [facility] Comment on above: Order Comment: BRIAN POOL WANTS RESULTS TO GO TO DR. RYAN AND DR ANDERSON Performed By: #### L 500.2500, L100.0500 #### [facility] [address] [place], [address] Hematocrit (Bld) [Volume fraction] 36.1 % Low 37-47 [facility] Comment on above: Order Comment: BRIAN NT WANTS RESULTS TO GO TO DR. RYAN AND DR ANDERSON Performed By: #### L 500.2500, L100.0500 #### [facility] [address] [place], [address] Hemoglobin (Bld) [Mass/Vol] 12.0 g/dL Normal 12.0-15.0 [facility] Comment on above: Order Comment: BRIAN NT WANTS RESULTS TO GO TO DR. RYAN AND DR ANDERSON Performed By: #### L 500.2500, L100.0500 #### [facility] [address] [place], [address] MCH (RBC) [Entitic mass] 30.3 pg Normal 27.0-32.0 [facility] Comment on above: Order Comment: BRIAN NT WANTS RESULTS TO GO TO DR. RYAN AND DR ANDERSON Performed By: #### L 500.2500, L100.0500 #### [facility] [address] [place], [address] MCHC (RBC) [Mass/Vol] 33.2 g/dL Normal 32-36 [facility] Comment on above: Order Comment: BRIAN NT WANTS RESULTS TO GO TO DR. RYAN AND DR ANDERSON Performed By: #### L 500.2500, L100.0500 #### [facility] [address] [place], [address] MCV (RBC) [Entitic vol] 91.2 fL Normal 81-99 [facility] Comment on above: Order Comment: BRIAN NT WANTS RESULTS TO GO TO DR. RYAN AND DR ANDERSON Performed By: #### L 500.2500, L100.0500 #### [facility] [address] [place], [address] Platelet mean volume (Bld) [Entitic vol] 11.6 fL Normal 6.2-12.0 [facility] Comment on above: Order Comment: LYNETTEKannan NT WANTS RESULTS TO GO TO DR. RYAN AND DR ANDERSON Performed By: #### L 500.2500, L100.0500 #### [facility] [address] [place], [address] Platelets (Bld) [#/Vol] 147 10*3/uL Low 150-450 [facility] Comment on above: Order Comment: LYNETTEKannan NT WANTS RESULTS TO GO TO DR. RYAN AND DR ANDERSON Performed By: #### L 500.2500, L100.0500 #### [facility] [address] [place], [address] RBC (Bld) [#/Vol] 3.96 10*6/uL Low 4.2-5.4 [facility] Comment on above: Order Comment: BRIAN NT WANTS RESULTS TO GO TO DR. RYAN AND DR ANDERSON Performed By: #### L 500.2500, L100.0500 #### [facility] [address] [place], [address] RDW SD 41.8 fl Normal 35.1-43.9 [facility] Comment on above: Order Comment: BRIAN NT WANTS RESULTS TO GO TO DR. RYAN AND DR ANDERSON Performed By: #### L 500.2500, L100.0500 #### [facility] [address] [place], [address] WBC (Bld) [#/Vol] 4.9 10*3/uL Normal 4.4-11.0 [facility] Comment on above: Order Comment: BRIAN LANZA WANTS RESULTS TO GO TO DR. RYAN AND DR ANDERSON Performed By: #### L 500.2500, L100.0500 #### [facility] [place], [address] Carbon dioxide measurementon 12-06-2024 CO2 [Moles/Vol] 26.0 mmol/L 21.0-32.0 [facility] Chloride measurementon 12-06 Chloride [Moles/Vol] 108 mmol/L High 98-107 [facility] Erythrocyte distribution wid th ratioon 12-06-2024 Erythrocyte distribution width (RBC) [Ratio] 12.6 % 11.6-14.6 [facility] Erythrocyte distribution wid th standard deviationon 12-06-2024 Erythrocyte distribution width (RBC) [Entitic vol] 41.8 fL 35.1-43.9 [facility] Estimated glomerular filtrat ion rate (GFR) Americanon 12-06-2024 Estimated GFR (MDRD) Amer 80 mL/min >60 [facility] Comment on above: GFR Calc Glomerular filtration rate ( GFR) estimationon 12-06-2024 Estimated GFR (MDRD) Non-Af Amer 66 mL/min >60 [facility] Comment on above: Non- GFR Calc Glucose measurementon 2024 Glucose [Mass/Vol] 105 mg/dL 74-106 [facility] Comment on above: Fasting Glucose resu lt from 100 to 125 mg/dL suggests IMPAIRED HOMEOSTASIS per A.D.A. criteria. Hematocrit Auto (Bld) [Volum e fraction]on 12-06-2024 Hematocrit (Bld) [Volume fraction] 36.1 % Low 37-47 [facility] Hemoglobin measurementon Hemoglobin (Bld) [Mass/Vol] 12.0 g/dL 12.0-15.0 [facility] MCV (mean corpuscular volume ) determinationon 12-06-2024 MCV (RBC) [Entitic vol] 91.2 fL 81-99 [facility] Mean corpuscular hemoglobin (MCH) determinationon 12-06-2024 MCH (RBC) [Entitic mass] 30.3 pg 27.0-32.0 [facility] Mean corpuscular hemoglobin concentration (MCHC) determinationon 12-06-2024 MCHC (RBC) [Mass/Vol] 33.2 g/dL 32-36 [facility] Mean platelet volume determi nationon 12-06-2024 Platelet mean volume (Bld) [Entitic vol] 11.6 fL 6.2-12.0 [facility] Platelet counton 12-06-2024 Platelets (Bld) [#/Vol] 147 10*3/uL Low 150-450 [facility] Potassium measurementon 11-09 Potassium [Moles/Vol] 4.3 mmol/L 3.5-5.1 [facility] RBC Auto (Bld) [#/Vol]on RBC (Bld) [#/Vol] 3.96 10*6/uL Low 4.2-5.4 [facility] Serum anion gap measuremento n 12-06-2024 Anion gap [Moles/Vol] 6 mmol/L 5-15 [facility] Serum or plasma calcium tripp urement (mass/volume)on 12-06-2024 Calcium [Mass/Vol] 9.0 mg/dL 8.5-10.1 [facility] Serum or plasma creatinine m easurement (mass/volume)on 12-06-2024 Creatinine [Mass/Vol] 0.90 mg/dL 0.55-1.02 [facility] Comment on above: The validity of the calculated GFR & GFRAA in patients over 70 years has not been determined. Clinical correlation is essential. Serum or plasma urea nitroge n measurement (mass/volume)on 12-06-2024 Urea nitrogen [Mass/Vol] 13 mg/dL 7-18 [facility] Sodium levelon 12-06-2024 Sodium [Moles/Vol] 140 mmol/L 136-145 [facility] White blood cell (WBC) count on 12-06-2024 WBC (Bld) [#/Vol] 4.9 10*3/uL 4.4-11.0 [facility] ECG 12-LEADon 11-15-2024 ECG 12-LEAD Ventricular Rate 91 Atrial Rate 96 QRS Duration 80 Q-T Interval 354 QTC Calculation(Bazett) 435 R [place] 26 T [place] 48 QRS Count 15 Q Onset 221 T Offset 398 QTC Fredericia 407 Diagnosis Atrial fibrillation Abnormal ECG When compared with ECG of 16-OCT-2024 09:44, Nonspecific T wave abnormality, improved in Inferior leads T wave inversion no longer evident in Anterior leads Confirmed by Lashonda Beltrán ([id number]) on 11/16/2024 8:51:44 AM Normal [facility] CBC panel Auto (Bld)on 10-16 Erythrocyte distribution width (RBC) [Ratio] 12.4 % 11.5 - 14.5 % [facility] Hematocrit (Bld) [Volume fraction] 30.8 % Low 36.0 - 46.0 % [facility] Hemoglobin (Bld) [Mass/Vol] 10.6 g/dL Low 12.0 - 16.0 g/dL [facility] Interpretation and review of laboratory results Abnormal [facility] MCH (RBC) [Entitic mass] 29.7 pg 26.0 - 34.[address] [facility] MCHC (RBC) [Mass/Vol] 34.4 g/dL 32.0 - 36.0 g/dL [facility] MCV (RBC) [Entitic vol] 86 fL 80 - [address] [facility] Nucleated RBC/100 WBC (Bld) [Ratio] 0 % [facility] Platelets (Bld) [#/Vol] 104 10*3/uL [facility] RBC (Bld) [#/Vol] 3.57 10*6/uL [facility] WBC (Bld) [#/Vol] 7.2 10*3/uL [facility] Erythrocyte distribution width (RBC) [Ratio] 12.4 % Normal 11.5-14.5 [facility] Comment on above: Performed By: #### 2 341-6 #### TEOFILO Flowers ([id number]) [facility] ([facility]) [id number] [place] [address] Hematocrit (Bld) [Volume fraction] 30.8 % Low 36.0-46.0 [facility] Comment on above: Performed By: #### 2 341-6 #### TEOFILO Flowers ([id number]) [facility] ([facility]) [address] [place] [phone] Hemoglobin (Bld) [Mass/Vol] 10.6 g/dL Low 12.0-16.0 [facility] Comment on above: Performed By: #### 2 341-6 #### TEOFILO Flowers ([id number]) [facility] ([facility]) [address] [place] [address] MCH (RBC) [Entitic mass] 29.7 pg Normal 26.0-34.0 [facility] Comment on above: Performed By: #### 2 341-6 #### TEOFILO Flowers ([id number]) [facility] ([facility]) [address] [place] [address] MCHC (RBC) [Mass/Vol] 34.4 g/dL Normal 32.0-36.0 [facility] Comment on above: Performed By: #### 2 341-6 #### TEOFILO Flowers ([id number]) [facility] ([facility]) [address] [place] [address]762 MCV (RBC) [Entitic vol] 86 fL Normal 80-100 U [facility] Comment on above: Performed By: #### 2 341-6 #### TEOFILO Flowers ([id number]) [facility] ([facility]) [address] [place] [address] 58122 Nucleated RBC/100 WBC (Bld) [Ratio] 0.0 /100 WBCs Normal 0.0-0.0 [facility] Comment on above: Performed By: #### 2 341-6 #### TEOFILO Flowers ([id number]) [facility] ([facility]) [address] [place] [address] 38570 Platelets (Bld) [#/Vol] 104 x10*3/uL Low 150-450 [facility] Comment on above: Performed By: #### 2 341-6 #### TEOFILO Flowers ([id number]) [facility] ([facility]) [address] [place] [address] RBC (Bld) [#/Vol] 3.57 x10*6/uL Low 4.00-5.20 [facility] Comment on above: Performed By: #### 2 341-6 #### TEOFILO Flowers ([id number]) [facility] ([facility]) [address] [place] [address] WBC (Bld) [#/Vol] 7.2 x10*3/uL Normal 4.4-11.3 [facility] Comment on above: Performed By: #### 2 341-6 #### TEOFILO Flowers ([id number]) [facility] ([facility]) [address] [place] [address] ECG 12-LEADon 10-16-2024 ECG 12-LEAD Ventricular Rate 92 Atrial Rate 91 QRS Duration 92 Q-T Interval 366 QTC Calculation(Bazett) 452 R [place] 19 T [place] 268 QRS Count 15 Q Onset 224 T Offset 407 QTC Fredericia 422 Diagnosis Atrial fibrillation Nonspecific ST and T wave abnormality Abnormal ECG When compared with ECG of 15-OCT-2024 13:02, No significant change was found Confirmed by Lashonda Beltrán ([id number]) on 10/16/2024 12:16:39 PM Normal [facility] Electrocardiogram, 12-lead P RN ACS symptomsOrdered By: Lashonda Beltrán on 10-16-2024 Atrial Rate [address] [facility] Work Phone: [phone] Q Onset [address] [facility] Work Phone: [phone] QRS Count [address] [facility] Work Phone: [phone] QRS Duration [address] [facility] Work Phone: [phone] QT Interval [address] [facility] Work Phone: [phone] QTC Calculation(Bazett) 452 ms U [facility] Work Phone: [phone] QTC Fredericia [address] [facility] Work Phone: R [place] [address] [facility] Work Phone: T [place] [address] [facility] Work Phone: T Offset [address] [facility] Work Phone: Ventricular Rate 92 BPM [facility] Work Phone: [facility] Work Phone: Electrocardiogram, 12-lead P RN ACS symptomson 10-16-[address] and T wave abnormality Abnormal ECG When compared with ECG of 15-OCT-2024 13:02, No significant change was found Confirmed by Lashonda Beltrán ([id number]) on 10/16/2024 12:16:39 PM MUSE Lashonda Beltrán MD - 10/16/[address] and T wave abnormality Abnormal ECG When compared with ECG of 15-OCT-2024 13:02, No significant change was found Confirmed by Lashonda Beltrán ([id number]) on 10/16/2024 12:16:[address] [facility] Work Phone: Magnesiumon 10-16-2024 Magnesium [Mass/Vol] 2.12 mg/dL 1.60 - 2.40 mg/dL [facility] Magnesium [Mass/Vol] 2.12 mg/dL Normal 1.60-2.40 [facility] Comment on above: Performed By: #### 2 341-6 #### TEOFILO Flowers ([id number]) [facility] ([facility]) [address] [place] [address] Magnesium [Mass/Vol]on 10-16 Interpretation and review of laboratory results Normal [facility] No Panel Informationon 10-[address] [facility] Renal function 2000 panelon 10-16-2024 Albumin BCP dye [Mass/Vol] 3.4 g/dL 3.4 - 5.0 g/dL [facility] Anion gap [Moles/Vol] 12 mmol/L 10 - 2 0 mmol/L [facility] Calcium [Mass/Vol] 8.2 mg/dL Low 8.6 - 10. 6 mg/dL [facility] Chloride [Moles/Vol] 108 mmol/L High 98 - 10 7 mmol/L [facility] CO2 [Moles/Vol] 23 mmol/L 21 - 32 mmol/L [facility] Creatinine [Mass/Vol] 0.62 mg/dL 0.50 - 1.05 mg/dL [facility] eGFR - PINF [facility] Comment on above: Calculations of denia mated GFR are performed using the 2020 CKD-EPI Study Refit equation without the race variable for the IDMS-Traceable creatinine methods. https://jasn.asnjournals.org/content/early/ASN.2020 982631 Glucose [Mass/Vol] 111 mg/dL High 74 - 99 mg/dL [facility] Interpretation and review of laboratory results Abnormal [facility] Phosphate [Mass/Vol] 2 mg/dL Low 2.5 - 4 .9 mg/dL [facility] Comment on above: The performance marc acteristics of phosphorus testing in heparinized plasma have been validated by the individual laboratory site where testing is performed. Testing on heparinized plasma is not approved by the FDA; however, such approval is not necessary. Potassium [Moles/Vol] 3.9 mmol/L 3.5 - 5.3 mmol/L [facility] Sodium [Moles/Vol] 139 mmol/L 136 - 145 mmol/L [facility] Urea nitrogen [Mass/Vol] 9 mg/dL 6 - 23 mg/dL [facility] Albumin BCP dye [Mass/Vol] 3.4 g/dL Normal 3.4-5.0 [facility] Comment on above: Performed By: #### 1 9123-9 #### TEOFILO Flowers ([id number]) [facility] ([facility]) [address] [place] [address]86[address] Anion gap [Moles/Vol] 12 mmol/L Normal 10-20 [facility] Comment on above: Performed By: #### 1 9123-9 #### TEOFILO Flowers ([id number]) [facility] ([facility]) [address] [place] [address] Calcium [Mass/Vol] 8.2 mg/dL Low 8.6-10.6 [facility] Comment on above: Performed By: #### 1 9123-9 #### TEOFILO Flowers ([id number]) [facility] ([facility]) [address] [place] [address] Chloride [Moles/Vol] 108 mmol/L High 98-107 [facility] Comment on above: Performed By: #### 1 9123-9 #### TEOFILO GUTHRIE L ([id number]) [facility] ([facility]) [address] [place] [address] CO2 [Moles/Vol] 23 mmol/L Normal 21-32 [facility] Comment on above: Performed By: #### 1 9123-9 #### TEOFILO Flowers ([id number]) [facility] ([facility]) [address] [place] [address] Creatinine [Mass/Vol] 0.62 mg/dL Normal 0.50-1.05 [facility] Comment on above: Performed By: #### 1 9123-9 #### TEOFILO Flowers ([id number]) [facility] ([facility]) [address] [place] [address] GFR/1.73 sq M.predicted MDRD (S/P/Bld) [Vol rate/Area] mL/min/{1.73_m2} Normal >60 [facility] Comment on above: Result Comment: Calc ulations of estimated GFR are performed using the 2020 CKD-EPI Study Refit equation without the race variable for the IDMS-Traceable creatinine methods. https://jasn.asnjournals.org/content/early/ASN.2020 737271 Performed By: #### 1 9123-9 #### TEOFILO Flowers ([id number]) [facility] ([facility]) [address] [place] [address] Glucose [Mass/Vol] 111 mg/dL High 74-99 [facility] Comment on above: Performed By: #### 1 9123-9 #### TEOFILO lFowers ([id number]) [facility] ([facility]) [address] [place] [address] 88161 Phosphate [Mass/Vol] 2.0 mg/dL Low 2.5-4.9 [facility] Comment on above: Result Comment: The performance characteristics of phosphorus testing in heparinized plasma have been validated by the individual laboratory site where testing is performed. Testing on heparinized plasma is not approved by the FDA; however, such approval is not necessary. Performed By: #### 1 9123-9 #### TEOFILO Flowers ([id number]) [facility] ([facility]) [address] [place] [address] 17584 Potassium [Moles/Vol] 3.9 mmol/L Normal 3.5-5.3 [facility] Comment on above: Performed By: #### 1 9123-9 #### TEOFILO Flowers ([id number]) [facility] ([facility]) [address] [place] [address]8624 Sodium [Moles/Vol] 139 mmol/L Normal 136-145 [facility] Comment on above: Performed By: #### 1 9123-9 #### TEOFILO Flowers ([id number]) [facility] ([facility]) [address] [place] [address] 14518 Urea nitrogen [Mass/Vol] 9 mg/dL Normal 6-23 [facility] Comment on above: Performed By: #### 1 9123-9 #### TEOFILO Flowers ([id number]) [facility] ([facility]) [address] [place] [address] 18170 US Heart TransthoracicOrdere d By: Colton Valle on 10-16-2024 LV EF 58 % [facility] Work Phone: [facility] Work Phone: US Heart Transthoracicon [facility], [address] [place] [address] and TRANSTHORACIC ECHOCARDIOGRAM REPORT Patient Name: RADHA THOMAS Reading Physician: [id number] Colton Valle MD Study Date: 10/15/2024 Ordering Provider: [id number] KRYSTINA BRONSON MRN/PID: [id number] Fellow: Nurse: Date of /Age: 8 1955 / 69 years Pile Driving Technician: Gender assigned at F Additional Staff: : Height: Admit Date: 10/13/2024 Weight: Admission Status: Inpatient - Routine BSA / BMI: m2 / kg/m2 Study Type: TRANSTHORACIC ECHO (TTE) LIMITED Diagnosis/ICD: Longstanding persistent AFib-I48.11 CPT Code: Echo Limited-70957; Doppler Limited-22889; Color Doppler-55443 Study Detail: The following Echo studies were [...] inspiratory collapse less than 50%. 7. Limited donor services specialist fellow echo. RECOMMENDATIONS: Utilizing an FDA cleared automated machine learning algorithm (EchoGo Heart Failure by [employer]), the analysis of the apical 4-chamber echocardiogram [...] Pressure: 8 mmHg IVC Diam: 2.20 cm [id number] Colton Valle MD Electronically signed on 10/16/2024 at 3:47:28 PM Final Colton Saavedra M D - 10/16/2024 [facility], [address] [place] [address] and TRANSTHORACIC ECHOCARDIOGRAM REPORT Patient Name: RADHA THOMAS Reading Physician: [id number] Colton Valle MD Study Date: 10/15/2024 Ordering Provider: [id number] KRYSTINA BRONSON MRN/PID: [id number] Fellow: Nurse: Date of /Age: 8 1955 / 69 years Pile Driving Technician: Gender assigned at F Additional Staff: : Height: Admit Date: 10/13/2024 Weight: Admission Status: Inpatient - Routine BSA / BMI: m2 / kg/m2 Study Type: TRANSTHORACIC ECHO (TTE) LIMITED Diagnosis/ICD: Longstanding persistent AFib-I48.11 CPT Code: Echo Limited-87080; Doppler Limited-84674; Color Doppler-30752 Study Detail: The following Echo studies were [...] inspiratory collapse less than 50%. 7. Limited donor services specialist fellow echo. RECOMMENDATIONS: Utilizing an FDA cleared automated machine learning algorithm (EchoGo Heart Failure by [employer]), the analysis of the apical 4-chamber echocardiogram [...] Pressure: 8 mmHg IVC Diam: 2.20 cm [id number] Colton Valle MD Electronically signed on 10/16/2024 at 3:47:28 PM Final [facility] Work Phone: XR CHEST 1 VIEWon 10-16-2024 XR CHEST 1 VIEW Interpreted By: Juan Mcdaniels, STUDY: XR CHEST 1 VIEW; 10/16/2024 8:04 am INDICATION: Signs/Symptoms:TVP positioning. COMPARISON: Chest radiograph dated 10/14/2024. ACCESSION NUMBER(S): [id number] ORDERING CLINICIAN: KRYSTINA BRONSON FINDINGS: AP radiograph [...] Juan Mcdaniels 10/16/2024 9:09 AM Dictation workstation: [id number] [facility] XR Chest Single viewon 10-16 1. Similar positioning of transvenous pacer with tip overlying the right ventricle. 2. Interval increase in interstitial/alveolar pulmonary edema/atelectasis, superimposed infection can not be excluded. 3. Small left pleural effusion. MACRO: None Signed by: Juan Mcdaniels 10/16/2024 9:09 AM Dictation workstation: [id number] Interpreted By: Juan Mcdaniels, STUDY: XR CHEST 1 VIEW; 10/16/2024 8:04 am INDICATION: Signs/Symptoms:TVP positioning. COMPARISON: Chest radiograph dated 10/14/2024. ACCESSION NUMBER(S): [id number] ORDERING CLINICIAN: KRYSTINA BRONSON FINDINGS: AP radiograph [...] COMPARISON: Chest radiograph dated 10/14/2024. ACCESSION NUMBER(S): [id number] ORDERING CLINICIAN: KRYSTINA BRONSON FINDINGS: AP radiograph [...] Juan Mcdaniels 10/16/2024 9:09 AM Dictation workstation: [id number] [facility] Work Phone: Radiology Study observation (narrative) [facility] Work Phone: XR Chest Single viewOrdered By: Juan Mcdaniels on 10-16-[address] [facility] Work Phone: C-reactive proteinon 12-08-2 024 CRP [Mass/Vol] 1.45 mg/dL High NINF - 1.00 mg/dL [facility] CBC panel Auto (Bld)on 10-15 Erythrocyte distribution width (RBC) [Ratio] 12.9 % 11.5 - 14.5 % [facility] Hematocrit (Bld) [Volume fraction] 32.3 % Low 36.0 - 46.0 % [facility] Hemoglobin (Bld) [Mass/Vol] 11 g/dL Low 12.0 - 16.0 g/dL [facility] Interpretation and review of laboratory results Abnormal [facility] MCH (RBC) [Entitic mass] 29.8 pg 26.0 - 34.[address] [facility] MCHC (RBC) [Mass/Vol] 34.1 g/dL 32.0 - 36.0 g/dL [facility] MCV (RBC) [Entitic vol] 88 fL 80 - [address] [facility] Nucleated RBC/100 WBC (Bld) [Ratio] 0 % [facility] Platelets (Bld) [#/Vol] 119 10*3/uL Low [facility] RBC (Bld) [#/Vol] 3.69 10*6/uL [facility] WBC (Bld) [#/Vol] 8.2 10*3/uL [facility] Erythrocyte distribution width (RBC) [Ratio] 12.9 % Normal 11.5-14.5 [facility] Comment on above: Performed By: #### 2 341-6 #### TEOFILO Flowers ([id number]) [facility] ([facility]) [address] [place] [address] Hematocrit (Bld) [Volume fraction] 32.3 % Low 36.0-46.0 [facility] Comment on above: Performed By: #### 2 341-6 #### TEOFILO Flowers ([id number]) [facility] ([facility]) [address] [place] [address]2378 Hemoglobin (Bld) [Mass/Vol] 11.0 g/dL Low 12.0-16.0 [facility] Comment on above: Performed By: #### 2 341-6 #### TEOFILO Flowers ([id number]) [facility] ([facility]) [address] [place] [address] MCH (RBC) [Entitic mass] 29.8 pg Normal 26.0-34.0 [facility] Comment on above: Performed By: #### 2 341-6 #### TEOFILO Flowers ([id number]) [facility] ([facility]) [address] [place] [address] 99085 MCHC (RBC) [Mass/Vol] 34.1 g/dL Normal 32.0-36.0 [facility] Comment on above: Performed By: #### 2 341-6 #### TEOFILO Flowers ([id number]) [facility] ([facility]) [address] [place] [address] 15144 MCV (RBC) [Entitic vol] 88 fL Normal 80-100 U [facility] Comment on above: Performed By: #### 2 341-6 #### TEOFILO Flowers ([id number]) [facility] ([facility]) [address] [place] [address] 23271 Nucleated RBC/100 WBC (Bld) [Ratio] 0.0 /100 WBCs Normal 0.0-0.0 [facility] Comment on above: Performed By: #### 2 341-6 #### TEOFILO Flowers ([id number]) [facility] ([facility]) [address] [place] [address] 90742 Platelets (Bld) [#/Vol] 119 x10*3/uL Low 150-450 [facility] Comment on above: Performed By: #### 2 341-6 #### TEOFILO Flowers ([id number]) [facility] ([facility]) [address] [place] [address] 07850 RBC (Bld) [#/Vol] 3.69 x10*6/uL Low 4.00-5.20 [facility] Comment on above: Performed By: #### 2 341-6 #### TEOFILO Flowers ([id number]) [facility] ([facility]) [address] [place] [address] WBC (Bld) [#/Vol] 8.2 x10*3/uL Normal 4.4-11.3 [facility] Comment on above: Performed By: #### 2 341-6 #### TEOFILO Flowers ([id number]) [facility] ([facility]) [address] [place] [address] 96790 CRP [Mass/Vol]on 10-15-2024 Interpretation and review of laboratory results Abnormal [facility] ECG 12-LEADon 10-15-2024 ECG 12-LEAD Ventricular Rate 115 Atrial Rate 120 QRS Duration 88 Q-T Interval 318 QTC Calculation(Bazett) 439 R [place] 45 T [place] -78 QRS Count 19 Q Onset 226 T Offset 385 QTC Fredericia 394 Diagnosis Atrial fibrillation with rapid ventricular response Low voltage QRS Nonspecific T wave abnormality Abnormal ECG When compared with ECG of 14-OCT-2024 23:17, Atrial fibrillation has replaced Sinus rhythm Confirmed by Lashonda Beltrán ([id number]) on 10/29/2024 8:09:14 PM Normal [facility] Magnesiumon 10-15-2024 Magnesium [Mass/Vol] 1.68 mg/dL 1.60 - 2.40 mg/dL [facility] Magnesium [Mass/Vol] 1.68 mg/dL Normal 1.60-2.40 [facility] Comment on above: Performed By: #### 2 341-6 #### TEOFILO Flowers ([id number]) [facility] ([facility]) [address] [place] [address] 16344 Magnesium [Mass/Vol]on 10-15 Interpretation and review of laboratory results Normal [facility] No Panel Informationon 10-[address] [facility] Renal function 2000 panelon 10-15-2024 Albumin BCP dye [Mass/Vol] 3.7 g/dL 3.4 - 5.0 g/dL [facility] Anion gap [Moles/Vol] 13 mmol/L 10 - 2 0 mmol/L [facility] Calcium [Mass/Vol] 8.5 mg/dL Low 8.6 - 10. 6 mg/dL [facility] Chloride [Moles/Vol] 106 mmol/L 98 - 10 7 mmol/L [facility] CO2 [Moles/Vol] 22 mmol/L 21 - 32 mmol/L [facility] Creatinine [Mass/Vol] 0.7 mg/dL 0.50 - 1.05 mg/dL [facility] eGFR - PINF [facility] Comment on above: Calculations of denia mated GFR are performed using the 2020 CKD-EPI Study Refit equation without the race variable for the IDMS-Traceable creatinine methods. https://jasn.asnjournals.org/content/early//ASN.2020 492003 Glucose [Mass/Vol] 129 mg/dL High 74 - 99 mg/dL [facility] Interpretation and review of laboratory results Abnormal [facility] Phosphate [Mass/Vol] 1.9 mg/dL Low 2.5 - 4 .9 mg/dL [facility] Comment on above: MILD HEMOLYSIS DETEC [...] [Moles/Vol] 4 mmol/L 3.5 - 5.3 mmol/L [facility] Comment on above: MILD HEMOLYSIS DETEC ROLANDA. The result may be falsely elevated due to hemolysis or other interferents. Clinical correlation is recommended. Repeat testing may be considered. Sodium [Moles/Vol] 137 mmol/L 136 - 145 mmol/L [facility] Urea nitrogen [Mass/Vol] 16 mg/dL 6 - 23 mg/dL [facility] Albumin BCP dye [Mass/Vol] 3.7 g/dL Normal 3.4-5.0 [facility] Comment on above: Performed By: #### 2 341-6 #### TEOFILO Flowers ([id number]) [facility] ([facility]) [address] [place] [address] Anion gap [Moles/Vol] 13 mmol/L Normal 10-20 [facility] Comment on above: Performed By: #### 2 341-6 #### TEOFILO GUTHRIE L ([id number]) [facility] ([facility]) [address] [place] [address] Calcium [Mass/Vol] 8.5 mg/dL Low 8.6-10.6 [facility] Comment on above: Performed By: #### 2 341-6 #### TEOFILO GUTHRIE L ([id number]) [facility] ([facility]) [address] [place] [address] Chloride [Moles/Vol] 106 mmol/L Normal 98-107 [facility] Comment on above: Performed By: #### 2 341-6 #### TEOFILO GUTHRIE L ([id number]) [facility] ([facility]) [address] [place] [address] CO2 [Moles/Vol] 22 mmol/L Normal 21-32 [facility] Comment on above: Performed By: #### 2 341-6 #### TEOFILO GUTHRIE L ([id number]) [facility] ([facility]) [address] [place] [address] Creatinine [Mass/Vol] 0.70 mg/dL Normal 0.50-1.05 [facility] Comment on above: Performed By: #### 2 341-6 #### TEOFILO GUTHRIE L ([id number]) [facility] ([facility]) [address] [place] [address] 28470 GFR/1.73 sq M.predicted MDRD (S/P/Bld) [Vol rate/Area] mL/min/{1.73_m2} Normal >60 [facility] Comment on above: Result Comment: Calc ulations of estimated GFR are performed using the 2020 CKD-EPI Study Refit equation without the race variable for the IDMS-Traceable creatinine methods. https://jasn.asnjournals.org/content//ASN.2020 289544 Performed By: #### 2 341-6 #### TEOFILO Flowers ([id number]) [facility] ([facility]) [address] [place] [address] Glucose [Mass/Vol] 129 mg/dL High 74-99 [facility] Comment on above: Performed By: #### 2 341-6 #### TEOFILO Flowers ([id number]) [facility] ([facility]) [address] [place] [address] Phosphate [Mass/Vol] 1.9 mg/dL Low 2.5-4.9 [facility] Comment on above: Result Comment: MILD [...] By: #### 2 341-6 #### TEOFILO Flowers ([id number]) [facility] ([facility]) [address] [place] [address] 18189 Potassium [Moles/Vol] 4.0 mmol/L Normal 3.5-5.3 [facility] Comment on above: Result Comment: MILD HEMOLYSIS DETECTED. The result may be falsely elevated due to hemolysis or other interferents. Clinical correlation is recommended. Repeat testing may be considered. Performed By: #### 2 341-6 #### TEOFILO Flowers ([id number]) [facility] ([facility]) [address] [place] [address] Sodium [Moles/Vol] 137 mmol/L Normal 136-145 [facility] Comment on above: Performed By: #### 2 341-6 #### TEOFILO Flowers ([id number]) [facility] ([facility]) [address] [place] [address] Urea nitrogen [Mass/Vol] 16 mg/dL Normal 6-23 [facility] Comment on above: Performed By: #### 2 341-6 #### TEOFILO Flowers ([id number]) [facility] ([facility]) [address] [place] [address] 94059 TRANSTHORACIC ECHO (TTE) NISHA Gan 10-15-2024 TRANSTHORACIC ECHO (TTE) [facility], [address] [place], [place] [id number] and TRANSTHORACIC ECHOCARDIOGRAM REPORT Patient Name: RADHA THOMAS Reading Physician: [id number] Colton Valle MD Study Date: 10/15/2024 Ordering Provider: [id number] KRYSTINA BRONSON MRN/PID: [id number] Fellow: Nurse: Date of /Age: 8 1955 / 69 years Pile Driving Technician: Gender assigned at F Additional Staff: : Height: Admit Date: 10/13/2024 Weight: Admission Status: Inpatient - Routine BSA / BMI: m2 / kg/m2 Study Type: TRANSTHORACIC ECHO (TTE) LIMITED Diagnosis/ICD: Longstanding persistent AFib-I48.11 CPT Code: Echo Limited-91531; Doppler Limited-06230; Color Doppler-07455 Study Detail: The following Echo studies were [...] inspiratory collapse less than 50%. 7. Limited donor services specialist fellow echo. RECOMMENDATIONS: Utilizing an FDA cleared automated machine learning algorithm (EchoGo Heart Failure by [employer]), the analysis of the apical 4-chamber echocardiogram [...] Pressure: 8 mmHg IVC Diam: 2.20 cm [id number] Colton Valle MD Electronically signed on 10/16/2024 at 3:47:28 PM Final Normal [facility] Tropinin I.cardiac panel Hig h sensitivity methodon 10-15-2024 Interpretation and review of laboratory results Abnormal [facility] Less than 99th percentile of normal [...] performed using a different testing methodology at [facility] than at other [facility]. Direct result comparisons should only be made within the same method. [facility] Interpretation and review of laboratory results Abnormal [facility] Less than 99th percentile of normal [...] performed using a different testing methodology at [facility] than at other [facility]. Direct result comparisons should only be made within the same method. [facility] Troponin I, High Sensitivity on 10-15-2024 Tropinin I.cardiac panel High sensitivity method 531 ng/L Critically high 0 - 34 ng/L [facility] Comment on above: Previous result veri fied on 10/15/2024 0304 on specimen/case [id number] called with component [facility] for procedure Troponin I, High Sensitivity with value 676 ng/L. Tropinin I.cardiac panel High sensitivity method 676 ng/L Critically high 0 - 34 ng/L [facility] Troponin I.cardiac panelon 1 12-16-2023 Tropinin I.cardiac panel High sensitivity method 531 ng/L Critically high 0-34 [facility] Comment on above: Order Comment: Less than [...] is performed using a differenttesting methodology at [facility] than at [facility]. Direct result comparisons should onlybe made within the same method. Result Comment: Prev ious result verified on 10/15/2024 0304 on specimen/case [id number] called with component [facility] for procedure Troponin I, High Sensitivity with value 676 ng/L. Performed By: #### 2 341-6 #### TEOFILO Flowers ([id number]) [facility] ([facility]) [address] [place] [address] 53390 C reactive proteinon 024 CRP [Mass/Vol] 1.45 mg/dL High <1.00 [facility] Comment on above: Performed By: #### 2 341-6 #### TEOFILO Flowers ([id number]) [facility] ([facility]) [address] [place] [address] 52830 CBC panel Auto (Bld)on 10-14 Erythrocyte distribution width (RBC) [Ratio] 12.9 % Normal 11.5-14.[address] [facility] Comment on above: Performed By: #### 2 341-6 #### TEOFILO Flowers ([id number]) [facility] ([facility]) [address] [place] [address] 03561 Hematocrit (Bld) [Volume fraction] 32.8 % Low 36.0-46.[address] [facility] Comment on above: Performed By: #### 2 341-6 #### TEOFILO Flowers ([id number]) [facility] ([facility]) [address] [place] [address] 30834 Hemoglobin (Bld) [Mass/Vol] 10.8 g/dL Low 12.0-16.[address] [facility] Comment on above: Performed By: #### 2 341-6 #### TEOFILO Flowers ([id number]) [facility] ([facility]) [address] [place] [address] 46725 Interpretation and review of laboratory results Abnormal [facility] MCH (RBC) [Entitic mass] 29.9 pg Normal 26.0-34.[address] [facility] Comment on above: Performed By: #### 2 341-6 #### TEOFILO Flowers ([id number]) [facility] ([facility]) [address] [place] [address] 30503 MCHC (RBC) [Mass/Vol] 32.9 g/dL Normal 32.0-36.0 [facility] Comment on above: Performed By: #### 2 341-6 #### TEOFILO Flowers ([id number]) [facility] ([facility]) [address] [place] [address] 16597 MCV (RBC) [Entitic vol] 91 fL Normal 80-100 U [facility] Comment on above: Performed By: #### 2 341-6 #### TEOFILO Flowers ([id number]) [facility] ([facility]) [address] [place] [address] 79151 Nucleated RBC/100 WBC (Bld) [Ratio] 0 % [facility] Platelets (Bld) [#/Vol] 115 10*3/uL [facility] RBC (Bld) [#/Vol] 3.61 10*6/uL [facility] WBC (Bld) [#/Vol] 7.3 10*3/uL [facility] Nucleated RBC/100 WBC (Bld) [Ratio] 0.0 /100 WBCs Normal 0.0-0.0 [facility] Comment on above: Performed By: #### 2 341-6 #### TEOFILO Flowers ([id number]) [facility] ([facility]) [address] [place] [address] 74360 Platelets (Bld) [#/Vol] 115 x10*3/uL Low 150-450 [facility] Comment on above: Performed By: #### 2 341-6 #### TEOFILO Flowers ([id number]) [facility] ([facility]) [address] [place] [address] RBC (Bld) [#/Vol] 3.61 x10*6/uL Low 4.00-5.20 [facility] Comment on above: Performed By: #### 2 341-6 #### TEOFILO OWENSER L ([id number]) [facility] ([facility]) [address] [place] [address] WBC (Bld) [#/Vol] 7.3 x10*3/uL Normal 4.4-11.3 [facility] Comment on above: Performed By: #### 2 341-6 #### TEOFILO GUTHRIE L ([id number]) [facility] ([facility]) [address] [place] [address] ECG 12-LEADon 10-14-2024 ECG 12-LEAD Ventricular Rate 79 Atrial Rate 79 P-R Interval 234 QRS Duration 90 Q-T Interval 354 QTC Calculation(Bazett) 405 P [place] 77 R [place] 28 T [place] 177 QRS Count 13 Q Onset 224 P Onset 107 P Offset 167 T Offset 401 QTC Fredericia 388 Diagnosis Sinus rhythm with 1st degree AV block T wave abnormality, consider lateral ischemia Abnormal ECG When compared with ECG of 14-OCT-2024 08:41, Inverted T waves have replaced nonspecific T wave abnormality in Lateral leads Confirmed by Too Beltráno ([id number]) on 10/29/2024 8:05:03 PM Normal [facility] ECG 12-LEAD Ventricular Rate 64 Atrial Rate 64 P-R Interval 224 QRS Duration 96 Q-T Interval 430 QTC Calculation(Bazett) 443 P [place] 70 R [place] 36 T [place] 190 QRS Count 11 Q Onset 222 P Onset 110 P Offset 169 T Offset 437 QTC Fredericia 439 Diagnosis Sinus rhythm with 1st degree AV block T wave abnormality, consider anterior ischemia Abnormal ECG When compared with ECG of 14-OCT-2024 08:25, UT interval has increased Questionable change in QRS duration Criteria for Anterior infarct are no longer Present Criteria for Inferior infarct are no longer Present Confirmed by Jerel Lashonda ([id number]) on 10/29/2024 8:03:08 PM Normal [facility] ECG 12-LEAD Ventricular Rate 60 Atrial Rate 54 QRS Duration 168 Q-T Interval 554 QTC Calculation(Bazett) 554 R [place] -41 T [place] 110 QRS Count 10 Q Onset 182 T Offset 459 QTC Fredericia 554 Diagnosis Ventricular-paced rhythm Abnormal ECG When compared with ECG of 13-OCT-2024 18:23, No significant change was found Confirmed by Lashonda Beltrán ([id number]) on 10/29/2024 8:02:48 PM Normal [facility] - Chemistry and C hemistry - challengeon 10-14-2024 Magnesium [Mass/Vol] 1.77 mg/dL Normal 1.60-2.40 [facility] Comment on above: Performed By: #### 1 9123-9 #### TEOFILO Flowers ([id number]) [facility] ([facility]) [address] [place] [address] 60469 Magnesium [Mass/Vol]on 10-14 Interpretation and review of laboratory results Normal [facility] No Panel Informationon 10-[address] [facility] Renal function 2000 panelon 10-14-2024 Albumin BCP dye [Mass/Vol] 3.7 g/dL Normal 3.4-5.[address] [facility] Comment on above: Performed By: #### 2 4362-6 #### TEOFILO Flowers ([id number]) [facility] ([facility]) [address] [place] [address] 86720 Anion gap [Moles/Vol] 11 mmol/L Normal 10-20 [facility] Comment on above: Performed By: #### 2 4362-6 #### TEOFILO Flowers ([id number]) [facility] ([facility]) [address] [place] [address] 70589 Calcium [Mass/Vol] 8.6 mg/dL Normal 8.6-10.6 [facility] Comment on above: Performed By: #### 2 4362-6 #### TEOFILO Flowers ([id number]) [facility] ([facility]) [address] [place] [address] 13772 Chloride [Moles/Vol] 104 mmol/L Normal 98-107 [facility] Comment on above: Performed By: #### 2 4362-6 #### TEOFILO Flowers ([id number]) [facility] ([facility]) [address] [place] [address] 40904 CO2 [Moles/Vol] 23 mmol/L Normal 21-32 [facility] Comment on above: Performed By: #### 2 4362-6 #### TEOFILO Flowers ([id number]) [facility] ([facility]) [address] [place] [address] 90411 Creatinine [Mass/Vol] 0.8 mg/dL 0.50 - 1.05 mg/dL [facility] GFR/1.73 sq M.predicted among non-blacks MDRD (S/P/Bld) [Vol rate/Area] 80 mL/min/{1.73_m2} - PINF [facility] Comment on above: Calculations of denia mated GFR are performed using the 2020 CKD-EPI Study Refit equation without the race variable for the IDMS-Traceable creatinine methods. https://jasn.asnjournals.org/content/early/ASN.2020 145970 Glucose [Mass/Vol] 130 mg/dL High 74-99 [facility] Comment on above: Performed By: #### 2 4362-6 #### TEOFILO Flowers ([id number]) [facility] ([facility]) [address] [place] [address] 67638 Interpretation and review of laboratory results Abnormal [facility] Phosphate [Mass/Vol] 3.9 mg/dL Normal 2.5-4.9 [facility] Comment on above: The performance marc [...] #### 2 4362-6 #### TEOFILO GUTHRIE L ([id number]) [facility] ([facility]) [address] [place] [address] 84720 Potassium [Moles/Vol] 4.2 mmol/L Normal 3.5-5.3 [facility] Comment on above: Performed By: #### 2 4362-6 #### TEOFILO OWENSER L ([id number]) [facility] ([facility]) [address] [place] [address] 73454 Sodium [Moles/Vol] 134 mmol/L Low 136-145 [facility] Comment on above: Performed By: #### 2 4362-6 #### TEOFILO GUTHRIE L ([id number]) [facility] ([facility]) [address] [place] [address] 90427 Urea nitrogen [Mass/Vol] 15 mg/dL Normal 6-[address] [facility] Comment on above: Performed By: #### 2 4362-6 #### TEOFILO GUTHRIE L ([id number]) [facility] ([facility]) [address] [place] [address] 91507 Creatinine [Mass/Vol] 0.80 mg/dL Normal 0.50-1.05 [facility] Comment on above: Performed By: #### 2 4362-6 #### TEOFILO GUTHRIE L ([id number]) [facility] ([facility]) [address] [place] [address] 78288 Glomerular filtration rate/1.73 sq M.predicted 80 mL/min/1.73m*2 Normal >60 [facility] Comment on above: Result Comment: Calc ulations of estimated GFR are performed using the 2020 CKD-EPI Study Refit equation without the race variable for the IDMS-Traceable creatinine methods. https://jasn.asnjournals.org/content//ASN.2020 631494 Performed By: #### 2 4362-6 #### TEOFILO GUTHRIE L ([id number]) [facility] ([facility]) [address] [place] [address] 85133 Troponin I.cardiac panelon 1 12-15-2023 Tropinin I.cardiac panel High sensitivity method 676 ng/L Critically high 0-34 [facility] Comment on above: Order Comment: Less than [...] is performed using a differenttesting methodology at [facility] than at [facility]. Direct result comparisons should onlybe made within the same method. Performed By: #### 2 341-6 #### TEOFILO Flowers ([id number]) [facility] ([facility]) [address] [place] [address] XR CHEST 1 VIEWon 10-14-2024 XR CHEST 1 VIEW Interpreted By: Aaron Pro and Ogievich Taessa STUDY: XR CHEST 1 VIEW; 10/14/2024 8:18 am INDICATION: Signs/Symptoms:TVP. COMPARISON: None. ACCESSION NUMBER(S): [id number] ORDERING CLINICIAN: REINA MONET FINDINGS: AP radiograph [...] , PGY-3. This study was interpreted at [facility], [place], [place]. MACRO: None Signed by: Aaron Ramirez 10/14/2024 1:31 PM Dictation workstation: [id number] [facility] XR Chest Single viewon 10-14 1. Temporary transvenous pacer with tip overlying the right ventricle. 2. No evidence of acute cardiopulmonary process. I personally reviewed the images/study and I agree with the findings as stated by Trevor Horton DO, PGY-3. This study was interpreted at [place], [place]. MACRO: None Signed by: Aaron Ramirez 10/14/2024 1:31 PM Dictation workstation: [id number] Interpreted By: Aaron Pro and Ogievich Taessa STUDY: XR CHEST 1 VIEW; 10/14/2024 8:18 am INDICATION: Signs/Symptoms:TVP. COMPARISON: None. ACCESSION NUMBER(S): [id number] ORDERING CLINICIAN: REINA MONET FINDINGS: AP radiograph [...] am INDICATION: Signs/Symptoms:TVP. COMPARISON: None. ACCESSION NUMBER(S): [id number] ORDERING CLINICIAN: REINA MONET FINDINGS: AP radiograph [...] DO, PGY-3. This study was interpreted at [facility], [place], [place]. MACRO: None Signed by: Aaron Ramirez 10/14/2024 1:31 PM Dictation workstation: [id number] [facility] Work Phone: Radiology Study observation (narrative) [facility]: XR Chest Single viewOrdered By: Aaron Ramirez on 10-14-[address] [facility] Work Phone: Basic metabolic 2000 panelon 10-13-2024 Anion gap [Moles/Vol] 13 mmol/L 10 - 2 0 mmol/L [facility] Calcium [Mass/Vol] 8.7 mg/dL 8.6 - 10. 6 mg/dL [facility] Chloride [Moles/Vol] 109 mmol/L High 98 - 10 7 mmol/L [facility] CO2 [Moles/Vol] 21 mmol/L 21 - 32 mmol/L [facility] Creatinine [Mass/Vol] 0.71 mg/dL 0.50 - 1.05 mg/dL [facility] eGFR - PINF [facility] Comment on above: Calculations of denia mated GFR are performed using the 2020 CKD-EPI Study Refit equation without the race variable for the IDMS-Traceable creatinine methods. https://jasn.asnjournals.org/content/early//ASN.2020 243142 Glucose [Mass/Vol] 135 mg/dL High 74 - 99 mg/dL [facility] Interpretation and review of laboratory results Abnormal [facility] Potassium [Moles/Vol] 4.1 mmol/L 3.5 - 5.3 mmol/L [facility] Sodium [Moles/Vol] 139 mmol/L 136 - 145 mmol/L [facility] Urea nitrogen [Mass/Vol] 15 mg/dL 6 - 23 mg/dL [facility] Anion gap [Moles/Vol] 13 mmol/L Normal 10-20 [facility] Comment on above: Performed By: #### 2 4321-2 #### TEOFILO Flowers ([id number]) [facility] ([facility]) [address] [place] [address] 87726 Calcium [Mass/Vol] 8.7 mg/dL Normal 8.6-10.6 [facility] Comment on above: Performed By: #### 2 4321-2 #### TEOFILO GUTHRIE L ([id number]) [facility] ([facility]) [address] [place] [address] 20883 Chloride [Moles/Vol] 109 mmol/L High 98-107 [facility] Comment on above: Performed By: #### 2 4321-2 #### TEOFILO Flowers ([id number]) [facility] ([facility]) [address] [place] [address] 20960 CO2 [Moles/Vol] 21 mmol/L Normal 21-32 [facility] Comment on above: Performed By: #### 2 4321-2 #### TEOFILO Flowers ([id number]) [facility] ([facility]) [address] [place] [address] 22892 Creatinine [Mass/Vol] 0.71 mg/dL Normal 0.50-1.05 [facility] Comment on above: Performed By: #### 2 4321-2 #### TEOFILO GUTHRIE L ([id number]) [facility] ([facility]) [address] [place] [address] 76482 GFR/1.73 sq M.predicted MDRD (S/P/Bld) [Vol rate/Area] mL/min/{1.73_m2} Normal >60 [facility] Comment on above: Result Comment: Calc ulations of estimated GFR are performed using the 2020 CKD-EPI Study Refit equation without the race variable for the IDMS-Traceable creatinine methods. https://jasn.asnjournals.org/content//ASN.2020 674148 Performed By: #### 2 4321-2 #### TEOFILO Flowers ([id number]) [facility] ([facility]) [address] [place] [address] Glucose [Mass/Vol] 135 mg/dL High 74-99 [facility] Comment on above: Performed By: #### 2 4321-2 #### TEOFILO Flowers ([id number]) [facility] ([facility]) [address] [place] [address] 03543 Potassium [Moles/Vol] 4.1 mmol/L Normal 3.5-5.3 [facility] Comment on above: Performed By: #### 2 4321-2 #### TEOFILO Flowers ([id number]) [facility] ([facility]) [address] [place] [address] 58583 Sodium [Moles/Vol] 139 mmol/L Normal 136-145 [facility] Comment on above: Performed By: #### 2 4321-2 #### TEOFILO GUTHRIE L ([id number]) [facility] ([facility]) [address] [place] [address] 40921 Urea nitrogen [Mass/Vol] 15 mg/dL Normal 6-23 [facility] Comment on above: Performed By: #### 2 4321-2 #### TEOFILO GUTHRIE L ([id number]) [facility] ([facility]) [address] [place] [address] 23988 CBC W Auto Differential pane l (Bld)on 10-13-2024 Basophils (Bld) [#/Vol] 0.07 10*3/uL [facility] Basophils/100 WBC (Bld) 0.6 % 0.0 - 2.0 % [facility] Eosinophils (Bld) [#/Vol] 0.16 10*3/uL [facility] Eosinophils/100 WBC (Bld) 1.5 % 0.0 - 6.0 % [facility] Erythrocyte distribution width (RBC) [Ratio] 12.8 % 11.5 - 14.5 % [facility] Hematocrit (Bld) [Volume fraction] 35.7 % Low 36.0 - 46.0 % [facility] Hemoglobin (Bld) [Mass/Vol] 11.9 g/dL Low 12.0 - 16.0 g/dL [facility] Immature granulocytes (Bld) [#/Vol] 0.15 10*3/uL [facility] Immature granulocytes/100 WBC (Bld) 1.4 % High 0.0 - 0.9 % [facility] Comment on above: Immature Granulocyte Count (IG) includes promyelocytes, myelocytes and metamyelocytes but does not include bands. Percent differential counts (%) should be interpreted in the context of the absolute cell counts (cells/UL). Interpretation and review of laboratory results Abnormal [facility] Lymphocytes (Bld) [#/Vol] 1.43 10*3/uL [facility] Lymphocytes/100 WBC (Bld) 13.2 % 13.0 - 44.0 % [facility] MCH (RBC) [Entitic mass] 30 pg 26.0 - 34.[address] [facility] MCHC (RBC) [Mass/Vol] 33.3 g/dL 32.0 - 36.0 g/dL [facility] MCV (RBC) [Entitic vol] 90 fL 80 - [address] [facility] Monocytes (Bld) [#/Vol] 0.61 10*3/uL [facility] Monocytes/100 WBC (Bld) 5.6 % 2.0 - 10.0 % [facility] Neutrophils (Bld) [#/Vol] 8.45 10*3/uL High [facility] Comment on above: Percent differential counts (%) should be interpreted in the context of the absolute cell counts (cells/uL). Neutrophils/100 WBC (Bld) 77.7 % 40.0 - 80.0 % [facility] Nucleated RBC/100 WBC (Bld) [Ratio] 0 % [facility] Platelets (Bld) [#/Vol] 146 10*3/uL Low [facility] RBC (Bld) [#/Vol] 3.97 10*6/uL Low [facility] WBC (Bld) [#/Vol] 10.9 10*3/uL [facility] Basophils (Bld) [#/Vol] 0.07 x10*3/uL Normal 0.00-0.10 [facility] Comment on above: Performed By: #### 5 7021-8 #### TEOFILO Flowers ([id number]) [facility] ([facility]) [id number] [place] [address] 05532 Basophils/100 WBC (Bld) 0.6 % Normal 0.0-2.0 [facility] Comment on above: Performed By: #### 5 7021-8 #### TEOFILO Flowers ([id number]) [facility] ([facility]) [address] [place] [address] 19567 Eosinophils (Bld) [#/Vol] 0.16 x10*3/uL Normal 0.00-0.70 [facility] Comment on above: Performed By: #### 5 7021-8 #### TEOFILO Flowers ([id number]) [facility] ([facility]) [address] [place] [address] 19697 Eosinophils/100 WBC (Bld) 1.5 % Normal 0.0-6.0 [facility] Comment on above: Performed By: #### 5 7021-8 #### TEOFILO Flowers ([id number]) [facility] ([facility]) [address] [place] [address] 38151 Erythrocyte distribution width (RBC) [Ratio] 12.8 % Normal 11.5-14.5 [facility] Comment on above: Performed By: #### 5 7021-8 #### TEOFILO Flowers ([id number]) [facility] ([facility]) [address] [place] [address] 88459 Hematocrit (Bld) [Volume fraction] 35.7 % Low 36.0-46.0 [facility] Comment on above: Performed By: #### 5 7021-8 #### TEOFILO Flowers ([id number]) [facility] ([facility]) [address] [place] [address] 57967 Hemoglobin (Bld) [Mass/Vol] 11.9 g/dL Low 12.0-16.0 [facility] Comment on above: Performed By: #### 5 7021-8 #### TEOFILO Flowers ([id number]) [facility] ([facility]) [address] [place] [address] 08270 Immature granulocytes (Bld) [#/Vol] 0.15 x10*3/uL Normal 0.00-0.70 [facility] Comment on above: Performed By: #### 5 7021-8 #### TEOFILO Flowers ([id number]) [facility] C[facility]) [address] [place] [address] 63322 Immature granulocytes/100 WBC (Bld) 1.4 % High 0.0-0.9 [facility] Comment on above: Result Comment: Raquel ture Granulocyte Count (IG) includes promyelocytes, myelocytes and metamyelocytes but does not include bands. Percent differential counts (%) should be interpreted in the context of the absolute cell counts (cells/UL). Performed By: #### 5 7021-8 #### TEOFILO Flowers ([id number]) [facility] ([facility]) [address] [place] [address] 38602 Lymphocytes (Bld) [#/Vol] 1.43 x10*3/uL Normal 1.20-4.80 [facility] Comment on above: Performed By: #### 5 7021-8 #### TEOFILO Flowers ([id number]) [facility] ([facility]) [address] [place] [address] 70111 Lymphocytes/100 WBC (Bld) 13.2 % Normal 13.0-44.0 [facility] Comment on above: Performed By: #### 5 7021-8 #### TEOFILO Flowers ([id number]) [facility] ([facility]) [address] [place] [address] 42843 MCH (RBC) [Entitic mass] 30.0 pg Normal 26.0-34.0 [facility] Comment on above: Performed By: #### 5 7021-8 #### TEOFILO Flowers ([id number]) [facility] ([facility]) [address] [place] [address] MCHC (RBC) [Mass/Vol] 33.3 g/dL Normal 32.0-36.0 [facility] Comment on above: Performed By: #### 5 7021-8 #### TEOFILO Flowers ([id number]) [facility] ([facility]) [address] [place] [address] MCV (RBC) [Entitic vol] 90 fL Normal 80-100 U [facility] Comment on above: Performed By: #### 5 7021-8 #### TEOFILO Flowers ([id number]) [facility] ([facility]) [address] [place] [address] 35394 Monocytes (Bld) [#/Vol] 0.61 x10*3/uL Normal 0.10-1.00 [facility] Comment on above: Performed By: #### 5 7021-8 #### TEOFILO Flowers ([id number]) [facility] ([facility]) [address] [place] [address] 08291 Monocytes/100 WBC (Bld) 5.6 % Normal 2.0-10.0 [facility] Comment on above: Performed By: #### 5 7021-8 #### TEOFILO Flowers ([id number]) [facility] ([facility]) [id number] [place] [address] 17907 Neutrophils (Bld) [#/Vol] 8.45 x10*3/uL High 1.20-7.70 [facility] Comment on above: Result Comment: Perc ent differential counts (%) should be interpreted in the context of the absolute cell counts (cells/uL). Performed By: #### 5 7021-8 #### TEOFILO Flowers ([id number]) [facility] ([facility]) [address] [place] [address] Neutrophils/100 WBC (Bld) 77.7 % Normal 40.0-80.0 [facility] Comment on above: Performed By: #### 5 7021-8 #### TEOFILO Flowers ([id number]) [facility] ([facility]) [address] [place] [address] Nucleated RBC/100 WBC (Bld) [Ratio] 0.0 /100 WBCs Normal 0.0-0.0 [facility] Comment on above: Performed By: #### 5 7021-8 #### TEOFILO Flowers ([id number]) [facility] ([facility]) [address] [place] [address] 53077 Platelets (Bld) [#/Vol] 146 x10*3/uL Low 150-450 [facility] Comment on above: Performed By: #### 5 7021-8 #### TEOFILO Flowers ([id number]) [facility] ([facility]) [address] [place] [address] 91648 RBC (Bld) [#/Vol] 3.97 x10*6/uL Low 4.00-5.20 [facility] Comment on above: Performed By: #### 5 7021-8 #### TEOFILO Flowers ([id number]) [facility] ([facility]) [address] [place] [address] 96813 WBC (Bld) [#/Vol] 10.9 x10*3/uL Normal 4.4-11.3 [facility] Comment on above: Performed By: #### 5 7021-8 #### TEOFILO Flowers ([id number]) [facility] ([facility]) [address] [place] [address] 88147 ECG 12-LEADon 10-13-2024 ECG 12-LEAD Ventricular Rate 60 Atrial Rate 59 QRS Duration 168 Q-T Interval 574 QTC Calculation(Bazett) 574 R [place] -67 T [place] 105 QRS Count 9 Q Onset 179 T Offset 466 QTC Fredericia 574 Diagnosis Ventricular-paced rhythm Abnormal ECG When compared with ECG of 13-SEP-2024 12:54, Electronic ventricular pacemaker has replaced Atrial fibrillation Confirmed by Lashonda Beltrán ([id number]) on 10/27/2024 10:44:31 PM Normal [facility] Glucose Test strip manual (B ld) [Mass/Vol]on 10-13-2024 Glucose [Mass/Vol] 97 mg/dL 74 - 99 mg/dL [facility] Interpretation and review of laboratory results Normal [facility] Glucose [Mass/Vol] 97 mg/dL Normal 74-99 [facility] Comment on above: Performed By: #### 2 341-6 #### TEOFILO Flowers ([id number]) [facility] ([facility]) [address] [place] [address] Hepatic function 2000 panelo n 10-13-2024 Albumin BCP dye [Mass/Vol] 3.7 g/dL 3.4 - 5.0 g/dL [facility] ALP [Catalytic activity/Vol] 62 U/L 33 - 136 U/L [facility] ALT With P-5'-P [Catalytic activity/Vol] 17 U/L 7 - 45 U/L [facility] Comment on above: Patients treated wit h Sulfasalazine may generate falsely decreased results for ALT. AST With P-5'-P [Catalytic activity/Vol] 23 U/L 9 - 39 U/L [facility] Bilirubin [Mass/Vol] 1 mg/dL 0.0 - 1 .2 mg/dL [facility] Bilirubin.direct [Mass/Vol] 0.2 mg/dL 0.0 - 0.3 mg/dL [facility] Interpretation and review of laboratory results Normal [facility] Protein [Mass/Vol] 6.4 g/dL 6.4 - 8.2 g/dL [facility] Albumin BCP dye [Mass/Vol] 3.7 g/dL Normal 3.4-5.0 [facility] Comment on above: Performed By: #### 2 4325-3 #### TEOFILO Flowers ([id number]) [facility] ([facility]) [address] [place], [place] [id number] ALP [Catalytic activity/Vol] 62 U/L Normal 33-136 [facility] Comment on above: Performed By: #### 2 4325-3 #### TEOFILO Flowers ([id number]) [facility] ([facility]) [address] [place] [address] 99541 ALT With P-5'-P [Catalytic activity/Vol] 17 U/L Normal 7-45 [facility] Comment on above: Result Comment: Lynette ents treated with Sulfasalazine may generate falsely decreased results for ALT. Performed By: #### 2 4325-3 #### TEOFILO Flowers ([id number]) [facility] ([facility]) [address] [place] [address] AST With P-5'-P [Catalytic activity/Vol] 23 U/L Normal 9-39 [facility] Comment on above: Performed By: #### 2 4325-3 #### TEOFILO Flowers ([id number]) [facility] ([facility]) [address] [place] [address] Bilirubin [Mass/Vol] 1.0 mg/dL Normal 0.0-1.2 [facility] Comment on above: Performed By: #### 2 4325-3 #### TEOFILO Flowers ([id number]) [facility] ([facility]) [address] [place] [address] 57654 Bilirubin.direct [Mass/Vol] 0.2 mg/dL Normal 0.0-0.3 [facility] Comment on above: Performed By: #### 2 4325-3 #### TEOFILO Flowers ([id number]) [facility] ([facility]) [address] [place] [address] 34320 Protein [Mass/Vol] 6.4 g/dL Normal 6.4-8.2 [facility] Comment on above: Performed By: #### 2 4325-3 #### TEOFILO Flowers ([id number]) [facility] ([facility]) [address] [place] [address] 18728 Magnesiumon 10-13-2024 Magnesium [Mass/Vol] 1.87 mg/dL 1.60 - 2.40 mg/dL [facility] Magnesium [Mass/Vol] 1.87 mg/dL Normal 1.60-2.40 [facility] Comment on above: Performed By: #### 1 9123-9 #### TEOFILO Flowers ([id number]) [facility] ([facility]) [address] [place] [address] No Panel Informationon 10-13 Images from the original result were not included. Atrial Fibrillation ablation Procedures Atrial Fibrillation ablation (97808), LA Pacing and recording (12644), 3D Mapping (25860), Intracardiac Echocardiogram (21020), Transseptal Catheterization (93961), Ultrasound Guided vascular access (45617), Insert temporary transvenous pacing electrode (81250) Patient history: Please refer to the detailed history and physical on the patient's medical chart. Procedure narrative: The procedure was performed under general anesthesia (administered and monitored by dimmer board operator and ANALOG CIRCUIT DESIGNER). Anesthesia sedated and intubated the patient without [...] venous access a Decapolar CS catheter by [employer].ngter was introduced and placed into the distal [...] 25-30W with adequate lesions by Visitag Surpoint (BiosHSTYLE Garrett) criteria. Visitags were used to identify the [...] internal jugular under ultrasound guidance. A 6 Macedonian peel-away sheath was then placed. A pacing [...] procedural log and parameters. SYNGO_SECTRA_ CARDIOLAB_XPE R [facility] Work Phone: Interpretation and review of laboratory results Normal [facility] PT and aPTT panel Coag (PPP) Ordered By: Mago Humphreys on 10-13-2024 aPTT Coag (PPP) [Time] 133 s Critically high [facility] INR Coag (PPP) [Relative time] 1.1 {INR} 0.9 - 1.[address] [facility] Interpretation and review of laboratory results Abnormal [facility] PT Coag (PPP) [Time] 12.6 s [facility] The APTT is no longe r used for monitoring Unfractionated Heparin Therapy. For monitoring Heparin Therapy, use the Heparin Assay. [facility] PT and aPTT panel Coag (PPP) on 10-13-2024 aPTT Coag (PPP) [Time] 133 s Critically high 27-38 [facility] Comment on above: Order Comment: The A PTT is no longer used for monitoring Unfractionated Heparin Therapy. For monitoring Heparin Therapy, use the Heparin Assay. Performed By: #### 3 4529-8 #### TEOFILO Flowers ([id number]) [facility] ([facility]) [address] [place] [address] 78169 INR Coag (PPP) [Relative time] 1.1 Normal 0.9-1.1 [facility] Comment on above: Order Comment: The A PTT is no longer used for monitoring Unfractionated Heparin Therapy. For monitoring Heparin Therapy, use the Heparin Assay. Performed By: #### 3 4529-8 #### TEOFILO Flowers ([id number]) [facility] ([facility]) [address] [place] [address] 80852 PT Coag (PPP) [Time] 12.6 s Normal 9.8-12.8 [facility] Comment on above: Order Comment: The A PTT is no longer used for monitoring Unfractionated Heparin Therapy. For monitoring Heparin Therapy, use the Heparin Assay. Performed By: #### 3 4529-8 #### TEOFILO Flowers ([id number]) [facility] ([facility]) [address] [place] [address] 06099 Phosphateon 12-06-2024 Phosphate [Mass/Vol] 3.5 mg/dL Normal 2.5-4.9 [facility] Comment on above: Result Comment: The performance characteristics of phosphorus testing in heparinized plasma have been validated by the individual laboratory site where testing is performed. Testing on heparinized plasma is not approved by the FDA; however, such approval is not necessary. Performed By: #### 2 777-1 #### TEOFILO Flowers ([id number]) [facility] ([facility]) [address] [place] [address] Phosphoruson 10-13-2024 Phosphate [Mass/Vol] 3.5 mg/dL 2.5 - 4 .9 mg/dL [facility] Comment on above: The performance marc acteristics of phosphorus testing in heparinized plasma have been validated by the individual laboratory site where testing is performed. Testing on heparinized plasma is not approved by the FDA; however, such approval is not necessary. TSHon 10-13-2024 TSH Qn 5.02 m[IU]/L High [facility] TSH Qnon 10-13-2024 Interpretation and review of laboratory results Abnormal [facility] TSH testing is performed using different testing methodology at [facility] than at other [facility]. Direct result comparisons should only be made within the same method. [facility] Thyrotropinon 10-13-2024 TSH Qn 5.02 m[IU]/L High 0.44-3.98 [facility] Comment on above: Order Comment: TSH t esting is performed using different testing methodology at [facility] than at other [facility]. Direct result comparisons should only be made within the same method. Performed By: #### 3 016-3 #### TEOFILO Flowers ([id number]) [facility] ([facility]) [address] [place] [address] Basic Metabolic Profile (BMP )on 09-30-2024 BUN/CRE 18.6 RATIO Normal - [facility] Comment on above: Performed By: #### L 100.0500, L500.2500 ####[facility] [address] [place], [address] CA,Total 9.0 mg/dL Normal 8.5-10.1 [facility] Comment on above: Performed By: #### L 100.0500, L500.2500 ####[facility] [address] [place], [address] Chloride [Moles/Vol] 109 mmol/L High 98-107 [facility] Comment on above: Performed By: #### L 100.0500, L500.2500 ####[facility] [address] [place], [address] CO2 [Moles/Vol] 28.0 mmol/L Normal 21.0-32.0 [facility] Comment on above: Performed By: #### L 100.0500, L500.2500 ####[facility] [address] [place], [address] Creatinine [Mass/Vol] 1.02 mg/dL Normal 0.55-1.02 [facility] Comment on above: Result Comment: The validity of the calculated GFR GFRAA in patients over 70 years has not been determined. Clinical correlation is essential. Performed By: #### L 100.0500, L500.2500 ####[facility] [address] [place], [address] EST GFR - AA 69 mL/min Normal >60 [facility] Comment on above: Result Comment: Afri can Afghan GFR Calc Performed By: #### L 100.0500, L500.2500 ####[facility] [address] [place], [address] GAP 4 Low 5-15 [facility] Comment on above: Performed By: #### L 100.0500, L500.2500 ####[facility] [address] [place], [address] GFR/1.73 sq M.predicted among non-blacks MDRD (S/P/Bld) [Vol rate/Area] 57 mL/min/{1.73_m2} Low >60 [facility] Comment on above: Result Comment: Non- GFR Calc Performed By: #### L 100.0500, L500.2500 ####[facility] [address] [place], [address] Glucose [Mass/Vol] 105 mg/dL Normal 74-106 [facility] Comment on above: Result Comment: Fast ing Glucose result from 100 to 125 mg/dL suggests IMPAIRED HOMEOSTASIS per A.D.A. criteria. Performed By: #### L 100.0500, L500.2500 ####[facility] [address] [place], [address] Potassium [Moles/Vol] 4.5 mmol/L Normal 3.5-5.1 [facility] Comment on above: Result Comment: Slig ht Hemolysis, Result may be falsely increased. Performed By: #### L 100.0500, L500.2500 ####[facility] [address] [place], [address] Sodium [Moles/Vol] 141 mmol/L Normal 136-145 [facility] Comment on above: Performed By: #### L 100.0500, L500.2500 ####[facility] [address] [place], [address] Urea nitrogen [Mass/Vol] 19 mg/dL High 7-18 [facility] Comment on above: Performed By: #### L 100.0500, L500.2500 ####[facility] [address] [place], [address] Blood urea nitrogen (BUN)/cr eatinine ratioon 09-30-2024 Urea nitrogen/Creatinine [Mass ratio] 18.6 mg/mg - [facility] CBC-Complete Blood Cnt No Di ffon 09-30-2024 Erythrocyte distribution width (RBC) [Ratio] 12.8 % Normal 11.6-14.6 [facility] Comment on above: Performed By: #### L 100.0500, L500.2500 #### [facility] [address] [place], [address] Hematocrit (Bld) [Volume fraction] 40.0 % Normal 37-47 [facility] Comment on above: Performed By: #### L 100.0500, L500.2500 #### [facility] [address] [place], [address] Hemoglobin (Bld) [Mass/Vol] 13.0 g/dL Normal 12.0-15.0 [facility] Comment on above: Performed By: #### L 100.0500, L500.2500 #### [facility] [address] [place], [address] MCH (RBC) [Entitic mass] 29.7 pg Normal 27.0-32.0 [facility] Comment on above: Performed By: #### L 100.0500, L500.2500 #### [facility] [address] [place], [address] MCHC (RBC) [Mass/Vol] 32.5 g/dL Normal 32-36 [facility] Comment on above: Performed By: #### L 100.0500, L500.2500 #### [facility] [address] [place], [address] MCV (RBC) [Entitic vol] 91.3 fL Normal 81-99 [facility] Comment on above: Performed By: #### L 100.0500, L500.2500 #### [facility] [address] [place], [address] Platelet mean volume (Bld) [Entitic vol] 10.8 fL Normal 6.2-12.0 [facility] Comment on above: Performed By: #### L 100.0500, L500.2500 #### [facility] [address] [place], [address] Platelets (Bld) [#/Vol] 161 10*3/uL Normal 150-450 [facility] Comment on above: Performed By: #### L 100.0500, L500.2500 #### [facility] [address] [place], [address] RBC (Bld) [#/Vol] 4.38 10*6/uL Normal 4.2-5.4 [facility] Comment on above: Performed By: #### L 100.0500, L500.2500 #### [facility] [address] [place], [address] RDW SD 43.1 fl Normal 35.1-43.9 [facility] Comment on above: Performed By: #### L 100.0500, L500.2500 #### [facility] [address] [place], [address] WBC (Bld) [#/Vol] 5.9 10*3/uL Normal 4.4-11.0 [facility] Comment on above: Performed By: #### L 100.0500, L500.2500 #### [facility] [address] [place], [address] Carbon dioxide measurementon 09-30-2024 CO2 [Moles/Vol] 28.0 mmol/L 21.0-32.0 [facility] Chloride measurementon 09-30 Chloride [Moles/Vol] 109 mmol/L High 98-107 [facility] Erythrocyte distribution wid th ratioon 09-30-2024 Erythrocyte distribution width (RBC) [Ratio] 12.8 % 11.6-14.6 [facility] Erythrocyte distribution wid th standard deviationon 09-30-2024 Erythrocyte distribution width (RBC) [Entitic vol] 43.1 fL 35.1-43.9 [facility] Estimated glomerular filtrat ion rate (GFR) Americanon 09-30-2024 Estimated GFR (MDRD) Amer 69 mL/min >60 [facility] Comment on above: GFR Calc Glomerular filtration rate ( GFR) estimationon 09-30-2024 Estimated GFR (MDRD) Non-Af Amer 57 mL/min Low >60 [facility] Comment on above: Non- GFR Calc Glucose measurementon 2023 Glucose [Mass/Vol] 105 mg/dL 74-106 [facility] Comment on above: Fasting Glucose resu lt from 100 to 125 mg/dL suggests IMPAIRED HOMEOSTASIS per A.D.A. criteria. Hematocrit Auto (Bld) [Volum e fraction]on 09-30-2024 Hematocrit (Bld) [Volume fraction] 40.0 % 37-47 [facility] Hemoglobin measurementon Hemoglobin (Bld) [Mass/Vol] 13.0 g/dL 12.0-15.0 [facility] MCV (mean corpuscular volume ) determinationon 09-30-2024 MCV (RBC) [Entitic vol] 91.3 fL 81-99 [facility] Mean corpuscular hemoglobin (MCH) determinationon 09-30-2024 MCH (RBC) [Entitic mass] 29.7 pg 27.0-32.0 [facility] Mean corpuscular hemoglobin concentration (MCHC) determinationon 09-30-2024 MCHC (RBC) [Mass/Vol] 32.5 g/dL 32-36 [facility] Mean platelet volume determi nationon 09-30-2024 Platelet mean volume (Bld) [Entitic vol] 10.8 fL 6.2-12.0 [facility] Platelet counton 09-30-2024 Platelets (Bld) [#/Vol] 161 10*3/uL 150-450 [facility] Potassium measurementon 09-09 Potassium [Moles/Vol] 4.5 mmol/L 3.5-5.1 [facility] Comment on above: Slight Hemolysis, Re sult may be falsely increased. RBC Auto (Bld) [#/Vol]on RBC (Bld) [#/Vol] 4.38 10*6/uL 4.2-5.4 [facility] Serum anion gap measuremento n 09-30-2024 Anion gap [Moles/Vol] 4 mmol/L Low 5-15 [facility] Serum or plasma calcium tripp urement (mass/volume)on 09-30-2024 Calcium [Mass/Vol] 9.0 mg/dL 8.5-10.1 [facility] Serum or plasma creatinine m easurement (mass/volume)on 09-30-2024 Creatinine [Mass/Vol] 1.02 mg/dL 0.55-1.02 [facility] Comment on above: The validity of the calculated GFR & GFRAA in patients over 70 years has not been determined. Clinical correlation is essential. Serum or plasma urea nitroge n measurement (mass/volume)on 09-30-2024 Urea nitrogen [Mass/Vol] 19 mg/dL High 7-18 [facility] Sodium levelon 09-30-2024 Sodium [Moles/Vol] 141 mmol/L 136-145 [facility] White blood cell (WBC) count on 09-30-2024 WBC (Bld) [#/Vol] 5.9 10*3/uL 4.4-11.0 [facility] 12 Lead EKG performed by [facility] on 09-14-2024 12 Lead EKG performed by [facility] [address] [place] [address] 12 Lead EKG performed by [facility] 09/14/24 08 MR#: [id number] Acct: [id number] Name: RADHA THOMAS Rep #: [id number] : 1955 69 From: Lashon Dennis Attending Dr: PAOLO Sewell Status: DEP AMB Ordering Dr: Lashon Baltazar Date: 05/31 Location: [facility] Sex: F C Admitted: [facility]/12 Lead EKG performed by [facility] ECG Report Interpretation -----atrial fibrillation Low voltage in precordial leads. -Nonspecific QRS widening. - Nonspecific T-abnormality. ABNORMAL Electronically signed on 09/21/2024 at 08:01 by Storm [employer] Version [id number] 09/21/24 0804 Date Lashon BOONE CC: Dr. Joel Anderson MD Date Dictated: 09/14/24808 Date Transcribed: 09/14/24808 Assistant Professor Of Art: SATISH Signed Normal [facility] Cardiology Visit Reporton Cardiology Visit Report [facility] [address] [place] [address] OFFICE VISIT Date of Service: 09/14/24 MR#: [id number] Acct: [id number] Name: RADHA THOMAS Rep #: [id number] : 1955 Provider: PAOLO Ruiz Age/Sex: 69/F Location: [facility] Status: Signed HPI HPI History [...] on a beta-clemente and anticoagulation with a NAE7SW1-CWTb score of 3. Patient did undergo a [...] beats. Patient was seen by EP at [facility]. She is in the process [...] 97 Intake Visit Reasons: 3 M [employer]U [employer] Program Analyst Required: No Is patient in pain?: No [...] external n (more content not included)... Normal [facility] ECG 12-LEADon 09-13-2024 ECG 12-LEAD Ventricular Rate 73 Atrial Rate 150 QRS Duration 98 Q-T Interval 408 QTC Calculation(Bazett) 449 R [place] 31 T [place] 64 QRS Count 13 Q Onset 220 T Offset 424 QTC Fredericia 435 Diagnosis Atrial fibrillation Abnormal ECG No previous ECGs available Confirmed by Lashonda Beltrán ([id number]) on 09/13/2024 3:38:49 PM Normal [facility] Basophil percentageOrdered B y: Connor Anderson on 01-14-2024 Chloride [Moles/Vol] 109 mmol/L 98-107 [facility] Cholesterol [Mass/Vol] 204 mg/dL <200 [facility] [place] Comment on above: <200 mg/dL Desirable 200-240 mg/dL Borderline >240 mg/dL High Risk Glucose [Mass/Vol] 102 mg/dL 74-106 [facility] Comment on above: Fasting Glucose resu lt from 100 to 125 mg/dL suggests IMPAIRED HOMEOSTASIS per A.D.A. criteria. Potassium [Moles/Vol] 4.0 mmol/L 3.5-5.1 [facility] Sodium [Moles/Vol] 141 mmol/L 136-145 [facility] Triglyceride [Mass/Vol] 35 mg/dL <199 [facility] Comment on above: The drugs N-Acetylcy steine and Metamizole may falsely depress this assay.Serum Triglycerides Reference Interval Normal <150 mg/dL Borderline high 150 - 199 mg/dL High 200 - 499 mg/dL Very High > or = 500 mg/dL Laboratory - Chemistry and C hemistry - challengeOrdered By: Connor Anderson on 01-14-2024 Cholesterol in HDL [Mass/Vol] 79 mg/dL >40 [facility] Comment on above: The drugs N-Acetylcy steine and Metamizole may falsely depress this assay. Reference Range HDL <40 mg/dL Low HDL Cholesterol HDL >or= 60 mg/dL High HDL Cholesterol Cholesterol in LDL [Mass/Vol] 118 mg/dL 0-130 [facility] CO2 [Moles/Vol] 27.0 mmol/L 21.0-32.0 [facility] Urea nitrogen/Creatinine [Mass ratio] 15.8 mg/mg 10-20 [facility] No Panel InformationOrdered By: Connor Anderson on 01-14-2024 Estimated GFR (MDRD) Amer 75 mL/min >60 [facility] Comment on above: GFR Calc Estimated GFR (MDRD) Non-Af Amer 62 mL/min >60 [facility] Comment on above: Non- GFR Calc Free Triiodothyronine (T3) pg/dL 2.2 pg/mL 2.18-3.98 [facility] VLDL Cholesterol 7 mg/dL 5-40 [facility] Serum or plasma calcium tripp urement (mass/volume)Ordered By: Connor Anderson on 01-14-2024 Calcium [Mass/Vol] 9.1 mg/dL 8.5-10.1 [facility] Serum or plasma creatinine m easurement (mass/volume)Ordered By: Connor Anderson on 01-14-2024 Creatinine [Mass/Vol] 0.95 mg/dL 0.55-1.02 [facility] Comment on above: The validity of the calculated GFR & GFRAA in patients over 70 years has not been determined. Clinical correlation is essential. Serum or plasma thyroid stim ulating hormone (TSH) measurement (units/volume)Ordered By: Connor Anderson on 01-14-2024 TSH Qn 2.25 uIU/mL 0.358-3.74 [facility] Serum or plasma urea nitroge n measurement (mass/volume)Ordered By: Connor Anderson on 01-14-2024 Urea nitrogen [Mass/Vol] 15 mg/dL 7-18 [facility] Thin prep Papanicolaou smear with manual screeningOrdered By: Connor Anderson on 01-14-2024 Thin prep Papanicolaou smear with manual screening 5 5-15 [facility] Thin prep Papanicolaou smear with manual screening 0.95 ng/dL 0.76-1.46 [facility] Basophil percentageOrdered B y: Troy Carvalho on 06-28-2023 WBC (Bld) [#/Vol] 5.3 10*3/uL 4.4-11.0 [facility] Blood erythrocytes count (nu mber/volume)Ordered By: Troy Carvalho on 06-28-2023 RBC (Bld) [#/Vol] 3.96 10*6/uL 4.2-5.4 [facility] Blood hemoglobin measurement (mass/volume)Ordered By: Troy Carvalho on 06-28-2023 Hemoglobin (Bld) [Mass/Vol] 11.5 g/dL 12.0-15.0 [facility] Blood platelet mean volumeOr dered By: Troy Carvalho on 06-28-2023 Platelet mean volume (Bld) [Entitic vol] 11.4 fL 6.2-12.0 [facility] Determination of erythrocyte mean corpuscular volume (MCV)Ordered By: Troy Carvalho on 06-28-2023 MCV (RBC) [Entitic vol] 89.4 fL 81-99 [facility] Hematocrit Auto (Bld) [Volum e fraction]Ordered By: Troy Carvalho on 06-28-2023 Hematocrit (Bld) [Volume fraction] 35.4 % 37-47 [facility] Laboratory - Hematology and Cell countsOrdered By: Troy Carvalho on 06-28-2023 Erythrocyte distribution width (RBC) [Entitic vol] 39.9 fL 35.1-43.9 [facility] Erythrocyte distribution width (RBC) [Ratio] 12.2 % 11.6-14.6 [facility] MCH (RBC) [Entitic mass] 29.0 pg 27.0-32.0 [facility] MCHC Auto (RBC) [Mass/Vol]Or dered By: Troy Carvalho on 06-28-2023 MCHC (RBC) [Mass/Vol] 32.5 g/dL 32-36 [facility] Platelets bldOrdered By: Saurav Carvalho on 06-28-2023 Platelets (Bld) [#/Vol] 174 10*3/uL 150-450 [facility] Basophil percentageOrdered B y: Connor nAderson on 06-22-2023 Chloride [Moles/Vol] 107 mmol/L 98-107 [facility] Cholesterol [Mass/Vol] 199 mg/dL <200 [facility] [place] Comment on above: <200 mg/dL Desirable 200-240 mg/dL Borderline >240 mg/dL High Risk Glucose [Mass/Vol] 103 mg/dL 74-106 [facility] Comment on above: Fasting Glucose resu lt from 100 to 125 mg/dL suggests IMPAIRED HOMEOSTASIS per A.D.A. criteria. Potassium [Moles/Vol] 4.4 mmol/L 3.5-5.1 [facility] Sodium [Moles/Vol] 138 mmol/L 136-145 [facility] Triglyceride [Mass/Vol] 41 mg/dL <199 [facility] Comment on above: The drugs N-Acetylcy steine and Metamizole may falsely depress this assay.Serum Triglycerides Reference Interval Normal <150 mg/dL Borderline high 150 - 199 mg/dL High 200 - 499 mg/dL Very High > or = 500 mg/dL Laboratory - Chemistry and C hemistry - challengeOrdered By: Connor Anderson on 06-22-2023 CO2 [Moles/Vol] 27.0 mmol/L 21.0-32.0 [facility] Urea nitrogen/Creatinine [Mass ratio] 12.5 mg/mg 10-20 [facility] No Panel InformationOrdered By: Connor Anderson on 06-22-2023 Estimated GFR (MDRD) Amer 68 mL/min >60 [facility] Comment on above: GFR Calc Estimated GFR (MDRD) Non-Af Amer 56 mL/min >60 [facility] Comment on above: Non- GFR Calc Thyroid Stimulating Hormone (TSH) 1.92 uIU/mL 0.358-3.74 [facility] Vitamin D 25-Hydroxy 71.3 ng/mL [facility] Comment on above: Vitamin D 25(OH) Sta tus Range Deficiency <20 ng/mL (50nmol/L) Insufficiency 20 - 30 ng/mL (50 - 75 nmol/L) Sufficiency 30 - 100 ng/mL (75 - 250 nmol/L) Toxicity >100 ng/mL (>250 nmol/L) Serum or plasma calcium tripp urement (mass/volume)Ordered By: Connor Anderson on 06-22-2023 Calcium [Mass/Vol] 9.2 mg/dL 8.5-10.1 [facility] Serum or plasma cholesterol in HDL measurement (mass/volume)Ordered By: Connor Anderson on 06-22-2023 Cholesterol in HDL [Mass/Vol] 74 mg/dL >40 [facility] Comment on above: The drugs N-Acetylcy steine and Metamizole may falsely depress this assay. Reference Range HDL <40 mg/dL Low HDL Cholesterol HDL >or= 60 mg/dL High HDL Cholesterol Serum or plasma cholesterol in VLDL measurement (mass/volume)Ordered By: Connor Anderson on 06-22-2023 Cholesterol in VLDL [Mass/Vol] 8 mg/dL 5-40 [facility] Serum or plasma creatinine m easurement (mass/volume)Ordered By: Connor Anderson on 06-22-2023 Creatinine [Mass/Vol] 1.04 mg/dL 0.55-1.02 [facility] Comment on above: The validity of the calculated GFR & GFRAA in patients over 70 years has not been determined. Clinical correlation is essential. Serum or plasma low density lipoprotein (LDL) cholesterol measurement (mass/volume)Ordered By: Connor Anderson on 06-22-2023 Cholesterol in LDL [Mass/Vol] 117 mg/dL 0-130 [facility] Serum or plasma urea nitroge n measurement (mass/volume)Ordered By: Connor Anderson on 06-22-2023 Urea nitrogen [Mass/Vol] 13 mg/dL 7-18 [facility] Thin prep Papanicolaou smear with manual screeningOrdered By: Connor Anderson on 06-22-2023 Thin prep Papanicolaou smear with manual screening 4 - [facility] Laboratory - Chemistry and C hemistry - challengeOrdered By: Dr. Anderson on 12-18-2022 Free T4 [Mass/Vol] 1.13 ng/dL 0.76-1.46 [facility] No Panel InformationOrdered By: Dr. Anderson on 12-18-2022 Thyroid Stimulating Hormone (TSH) 2.14 uIU/mL 0.358-3.74 [facility] Absolute lymphocyte countOrd ered By: Thais Lobo on 09-18-2022 Lymphocytes Auto (Unsp spec) [#/Vol] 1.43 10*3/uL 0.83-4.51 [facility] Basophil percentageOrdered B y: Thais Lobo on 09-18-2022 Basophils/100 WBC (Bld) 1.5 % 0-1 [facility] Bilirubin [Mass/Vol] 0.40 mg/dL 0.20-1.00 [facility] Comment on above: For patients on eltr ombopag therapy, use of Dimension Verbena TBIL is not recommended. Chloride [Moles/Vol] 109 mmol/L 98-107 [facility] Cholesterol [Mass/Vol] 179 mg/dL <200 [facility] [place] Comment on above: <200 mg/dL Desirable 200-240 mg/dL Borderline >240 mg/dL High Risk Eosinophils/100 WBC (Bld) 3.4 % 0-5 [facility] Glucose [Mass/Vol] 107 mg/dL 74-106 [facility] Comment on above: Fasting Glucose resu lt from 100 to 125 mg/dL suggests IMPAIRED HOMEOSTASIS per A.D.A. criteria. Neutrophils (Bld) [#/Vol] 2.7 10*3/uL 2.0-7.7 [facility] Neutrophils/100 WBC (Bld) 57.7 % 47-70 [facility] Potassium [Moles/Vol] 4.3 mmol/L 3.5-5.1 [facility] Protein [Mass/Vol] 7.3 g/dL 6.4-8.2 [facility] Sodium [Moles/Vol] 140 mmol/L 136-145 [facility] Triglyceride [Mass/Vol] 55 mg/dL <199 [facility] Comment on above: The drugs N-Acetylcy steine and Metamizole may falsely depress this assay.Serum Triglycerides Reference Interval Normal <150 mg/dL Borderline high 150 - 199 mg/dL High 200 - 499 mg/dL Very High > or = 500 mg/dL WBC (Bld) [#/Vol] 4.7 10*3/uL 4.4-11.0 [facility] Blood erythrocytes count (nu mber/volume)Ordered By: Thais Lobo on 09-18-2022 RBC (Bld) [#/Vol] 3.81 10*6/uL 4.2-5.4 [facility] Blood hemoglobin measurement (mass/volume)Ordered By: Thais Lobo on 09-18-2022 Hemoglobin (Bld) [Mass/Vol] 11.3 g/dL 12.0-15.0 [facility] Blood lymphocytes/100 leukoc ytesOrdered By: Thais Statbaudilio on 09-18-2022 Lymphocytes/100 WBC (Bld) 30.6 % 19-41 [facility] Blood monocytes/100 leukocyt esOrdered By: Thais Statmayitooulmicki on 09-18-2022 Monocytes/100 WBC (Bld) 6.4 % 0-10 [facility] Blood platelet mean volumeOr dered By: Thais Statbaudilio on 09-18-2022 Platelet mean volume (Bld) [Entitic vol] 12.1 fL 6.2-12.0 [facility] Determination of erythrocyte mean corpuscular volume (MCV)Ordered By: Thais Lobo on 09-18-2022 MCV (RBC) [Entitic vol] 89.8 fL 81-99 [facility] Hematocrit Auto (Bld) [Volum e fraction]Ordered By: Thais Lobo on 09-18-2022 Hematocrit (Bld) [Volume fraction] 34.2 % 37-47 [facility] Laboratory - Chemistry and C hemistry - challengeOrdered By: Thais Lobo on 09-18-2022 ALP [Catalytic activity/Vol] 66 U/L 45-117 [facility] ALT [Catalytic activity/Vol] 39 U/L 13-56 [facility] CO2 [Moles/Vol] 24.0 mmol/L 21.0-32.0 [facility] Free T4 [Mass/Vol] 0.90 ng/dL 0.76-1.46 [facility] Globulin (S) [Mass/Vol] 3.6 g/dL 2.2-4.2 [facility] Urea nitrogen/Creatinine [Mass ratio] 18.8 mg/mg 10-20 [facility] Laboratory - Hematology and Cell countsOrdered By: Thais Lobo on 09-18-2022 Erythrocyte distribution width (RBC) [Entitic vol] 43.6 fL 35.1-43.9 [facility] Erythrocyte distribution width (RBC) [Ratio] 13.3 % 11.6-14.6 [facility] Immature granulocytes/100 WBC (Bld) 0.400 % 0.0-0.9 [facility] Comment on above: IG% - Immature Granu locytes (promyelocytes, myelocytes and metamyelocytes) > 1% indicates that a LEFT SHIFT is Present. MCH (RBC) [Entitic mass] 29.7 pg 27.0-32.0 [facility] Nucleated RBC/100 WBC (Bld) [Ratio] 0 % 0-5 [facility] MCHC Auto (RBC) [Mass/Vol]Or dered By: Thais Lobo on 09-18-2022 MCHC (RBC) [Mass/Vol] 33.0 g/dL 32-36 [facility] No Panel InformationOrdered By: Thais Lobo on 09-18-2022 Estimated GFR (MDRD) Amer 75 mL/min >60 [facility] Comment on above: GFR Calc Estimated GFR (MDRD) Non-Af Amer 62 mL/min >60 [facility] Comment on above: Non- GFR Calc Free Triiodothyronine (T3) pg/dL 2.7 pg/mL 2.18-3.98 [facility] Thyroid Stimulating Hormone (TSH) 4.20 uIU/mL 0.358-3.74 [facility] Platelets bldOrdered By: Josiah Lobo on 09-18-2022 Platelets (Bld) [#/Vol] 176 10*3/uL 150-450 [facility] Serum or plasma albumin tripp urement (mass/volume)Ordered By: Thais Lobo on 09-18-2022 Albumin [Mass/Vol] 3.7 g/dL 3.2-5.0 [facility] Serum or plasma albumin/glob ulin mass ratioOrdered By: Thais Statbaudilio on 09-18-2022 Albumin/Globulin [Mass ratio] 1.0 {ratio} 0.9-2.4 [facility] Serum or plasma calcium tripp urement (mass/volume)Ordered By: Thais Lobo on 09-18-2022 Calcium [Mass/Vol] 8.5 mg/dL 8.5-10.1 [facility] Serum or plasma cholesterol in HDL measurement (mass/volume)Ordered By: Thais Lobo on 09-18-2022 Cholesterol in HDL [Mass/Vol] 83 mg/dL >40 [facility] Comment on above: The drugs N-Acetylcy steine and Metamizole may falsely depress this assay. Reference Range HDL <40 mg/dL Low HDL Cholesterol HDL >or= 60 mg/dL High HDL Cholesterol Serum or plasma cholesterol in VLDL measurement (mass/volume)Ordered By: Thais Lobo on 09-18-2022 Cholesterol in VLDL [Mass/Vol] 11 mg/dL 5-40 [facility] Serum or plasma creatinine m easurement (mass/volume)Ordered By: Thais Lobo on 09-18-2022 Creatinine [Mass/Vol] 0.96 mg/dL 0.55-1.02 [facility] Comment on above: The validity of the calculated GFR & GFRAA in patients over 70 years has not been determined. Clinical correlation is essential. Serum or plasma low density lipoprotein (LDL) cholesterol measurement (mass/volume)Ordered By: Thais Lobo on 09-18-2022 Cholesterol in LDL [Mass/Vol] 85 mg/dL 0-130 [facility] Serum or plasma urea nitroge n measurement (mass/volume)Ordered By: Thais Lobo on 09-18-2022 Urea nitrogen [Mass/Vol] 18 mg/dL 7-18 [facility] Thin prep Papanicolaou smear with manual screeningOrdered By: Thais Lobo on 09-18-2022 Thin prep Papanicolaou smear with manual screening 20 U/L 15-37 [facility] Thin prep Papanicolaou smear with manual screening 7 5-15 [facility] Absolute lymphocyte counton 08-05-2022 Lymphocytes Auto (Unsp spec) [#/Vol] 1.76 10*3/uL 0.83-4.51 [facility] Work Phone: Basophil percentageon 2021 Basophils/100 WBC (Bld) 0.9 % 0-1 [facility] Work Phone: Bilirubin [Mass/Vol] 0.40 mg/dL 0.20-1.00 [facility] Work Phone: Comment on above: For patients on eltr ombopag therapy, use of Dimension [place] TBIL is not recommended. Chloride [Moles/Vol] 108 mmol/L 98-107 [facility] Work Phone: Eosinophils/100 WBC (Bld) 3.6 % 0-5 [facility] Work Phone: Glucose [Mass/Vol] 110 mg/dL 74-106 [facility] Work Phone: Comment on above: Fasting Glucose resu lt from 100 to 125 mg/dL suggests IMPAIRED HOMEOSTASIS per A.D.A. criteria. Neutrophils (Bld) [#/Vol] 3.1 10*3/uL 2.0-7.7 [facility] Work Phone: [phone] Neutrophils/100 WBC (Bld) 56.9 % 47-70 [facility] Work Phone: [phone] Potassium [Moles/Vol] 4.1 mmol/L 3.5-5.1 [facility] Work Phone: [phone] Protein [Mass/Vol] 7.5 g/dL 6.4-8.2 [facility] Work Phone: Sodium [Moles/Vol] 139 mmol/L 136-145 [facility] Work Phone: WBC (Bld) [#/Vol] 5.5 10*3/uL 4.4-11.0 [facility] Work Phone: Blood erythrocytes count (nu mber/volume)on 08-05-2022 RBC (Bld) [#/Vol] 4.58 10*6/uL 4.2-5.4 [facility]: Blood hemoglobin measurement (mass/volume)on 08-05-2022 Hemoglobin (Bld) [Mass/Vol] 13.1 g/dL 12.0-15.0 [facility] Work Phone: Blood lymphocytes/100 leukoc yteson 08-05-2022 Lymphocytes/100 WBC (Bld) 31.8 % 19-41 [facility] Work Phone: Blood monocytes/100 leukocyt eson 08-05-2022 Monocytes/100 WBC (Bld) 6.3 % 0-10 [facility] Work Phone: Blood platelet mean volumeon 08-05-2022 Platelet mean volume (Bld) [Entitic vol] 12.3 fL 6.2-12.0 [facility] Work Phone: Determination of erythrocyte mean corpuscular volume (MCV)on 08-05-2022 MCV (RBC) [Entitic vol] 89.7 fL 81-99 [facility] Work Phone: Hematocrit Auto (Bld) [Volum e fraction]on 08-05-2022 Hematocrit (Bld) [Volume fraction] 41.1 % 37-47 [facility] Work Phone: Laboratory - Chemistry and C hemistry - challengeon 08-05-2022 ALP [Catalytic activity/Vol] 66 U/L 45-117 [facility] Work Phone: ALT [Catalytic activity/Vol] 47 U/L 13-56 [facility] Work Phone: CO2 [Moles/Vol] 23.0 mmol/L 21.0-32.0 [facility] Work Phone: Free T4 [Mass/Vol] 0.98 ng/dL 0.76-1.46 [facility] Work Phone: Globulin (S) [Mass/Vol] 3.9 g/dL 2.2-4.2 [facility] Work Phone: Urea nitrogen/Creatinine [Mass ratio] 13.8 mg/mg 10-20 [facility] Work Phone: Laboratory - Hematology and Cell countson 08-05-2022 Erythrocyte distribution width (RBC) [Entitic vol] 42.5 fL 35.1-43.9 [facility] Work Phone: Erythrocyte distribution width (RBC) [Ratio] 13.1 % 11.6-14.6 [facility] Work Phone: [phone] Immature granulocytes/100 WBC (Bld) 0.500 % 0.0-0.9 [facility] Work Phone: Comment on above: IG% - Immature Granu locytes (promyelocytes, myelocytes and metamyelocytes) > 1% indicates that a LEFT SHIFT is Present. MCH (RBC) [Entitic mass] 28.6 pg 27.0-32.0 [facility] Work Phone: Nucleated RBC/100 WBC (Bld) [Ratio] 0 % 0-5 [facility] Work Phone: MCHC Auto (RBC) [Mass/Vol]on 08-05-2022 MCHC (RBC) [Mass/Vol] 31.9 g/dL 32-36 [facility] Work Phone: No Panel Informationon 08-05 Estimated GFR (MDRD) Amer 76 mL/min >60 [facility] Work Phone: Comment on above: GFR Calc Estimated GFR (MDRD) Non-Af Amer 63 mL/min >60 [facility] Work Phone: Comment on above: Non- GFR Calc Thyroid Stimulating Hormone (TSH) 4.04 uIU/mL 0.358-3.74 [facility] Work Phone: Platelets bldon 08-05-2022 Platelets (Bld) [#/Vol] 181 10*3/uL 150-450 [facility] Work Phone: Serum or plasma albumin tripp urement (mass/volume)on 08-05-2022 Albumin [Mass/Vol] 3.6 g/dL 3.2-5.0 [facility] Work Phone: Serum or plasma albumin/glob ulin mass ratioon 08-05-2022 Albumin/Globulin [Mass ratio] 0.9 {ratio} 0.9-2.4 [facility] Work Phone: Serum or plasma calcium tripp urement (mass/volume)on 08-05-2022 Calcium [Mass/Vol] 8.9 mg/dL 8.5-10.1 [facility] Work Phone: Serum or plasma creatinine m easurement (mass/volume)on 08-05-2022 Creatinine [Mass/Vol] 0.94 mg/dL 0.55-1.02 [facility] Work Phone: Comment on above: The validity of the calculated GFR & GFRAA in patients over 70 years has not been determined. Clinical correlation is essential. Serum or plasma urea nitroge n measurement (mass/volume)on 08-05-2022 Urea nitrogen [Mass/Vol] 13 mg/dL 7-18 [facility] Work Phone: Thin prep Papanicolaou smear with manual screeningon 08-05-2022 Thin prep Papanicolaou smear with manual screening 24 U/L 15-37 [facility] Work Phone: Thin prep Papanicolaou smear with manual screening 8 5-15 [facility] Work Phone: Basophil percentageon 2021 Chloride [Moles/Vol] 107 mmol/L 98-[address] [facility] Work Phone: Cholesterol [Mass/Vol] 215 mg/dL <200 [facility] Work Phone: Comment on above: <200 mg/dL Desirable 200-240 mg/dL Borderline >240 mg/dL High Risk Glucose [Mass/Vol] 92 mg/dL 74-106 [facility] Work Phone: Potassium [Moles/Vol] 4.5 mmol/L 3.5-5.1 [place] [facility] Work Phone: Sodium [Moles/Vol] 140 mmol/L 136-145 [facility] Work Phone: Triglyceride [Mass/Vol] 62 mg/dL <199 [facility] Work Phone: Comment on above: The drugs N-Acetylcy steine and Metamizole may falsely depress this assay.Serum Triglycerides Reference Interval Normal <150 mg/dL Borderline high 150 - 199 mg/dL High 200 - 499 mg/dL Very High > or = 500 mg/dL Laboratory - Chemistry and C hemistry - challengeon 04-21-2022 CO2 [Moles/Vol] 28.0 mmol/L 21.0-32.0 [facility] Work Phone: Urea nitrogen/Creatinine [Mass ratio] 16.0 mg/mg 10-20 [facility] Work Phone: No Panel Informationon 04-21 Estimated GFR (MDRD) Amer 83 mL/min >60 [facility] Work Phone: Comment on above: GFR Calc Estimated GFR (MDRD) Non-Af Amer 68 mL/min >60 [facility] Work Phone: Comment on above: Non- GFR Calc Thyroid Stimulating Hormone (TSH) 3.32 uIU/mL 0.358-3.74 [facility] Work Phone: Vitamin D 25-Hydroxy 50.6 ng/mL [facility] Work Phone: Comment on above: Vitamin D 25(OH) Sta tus Range Deficiency <20 ng/mL (50nmol/L) Insufficiency 20 - 30 ng/mL (50 - 75 nmol/L) Sufficiency 30 - 100 ng/mL (75 - 250 nmol/L) Toxicity >100 ng/mL (>250 nmol/L) Serum or plasma calcium tripp urement (mass/volume)on 04-21-2022 Calcium [Mass/Vol] 9.1 mg/dL 8.5-10.1 [facility] Work Phone: Serum or plasma cholesterol in HDL measurement (mass/volume)on 04-21-2022 Cholesterol in HDL [Mass/Vol] 77 mg/dL >40 [facility] Work Phone: Comment on above: The drugs N-Acetylcy steine and Metamizole may falsely depress this assay. Reference Range HDL <40 mg/dL Low HDL Cholesterol HDL >or= 60 mg/dL High HDL Cholesterol Serum or plasma cholesterol in VLDL measurement (mass/volume)on 04-21-2022 Cholesterol in VLDL [Mass/Vol] 12 mg/dL 5-40 [facility] Work Phone: Serum or plasma creatinine m easurement (mass/volume)on 04-21-2022 Creatinine [Mass/Vol] 0.88 mg/dL 0.55-1.02 [facility] Work Phone: Comment on above: The validity of the calculated GFR & GFRAA in patients over 70 years has not been determined. Clinical correlation is essential. Serum or plasma low density lipoprotein (LDL) cholesterol measurement (mass/volume)on 04-21-2022 Cholesterol in LDL [Mass/Vol] 126 mg/dL 0-130 [facility] Work Phone: Serum or plasma urea nitroge n measurement (mass/volume)on 04-21-2022 Urea nitrogen [Mass/Vol] 14 mg/dL 7-18 [facility] Work Phone: Thin prep Papanicolaou smear with manual screeningon 04-21-2022 Thin prep Papanicolaou smear with manual screening 5 5-15 [facility] Work Phone: Vital Signs Date Time Vital Sign Value Performing Clinician Valentina patel 08-10-2025 05:10-0400 Body mass index (BMI) [Ratio] 31.2 kg/m2 Dr. Joel Anderson MD Work Phone: [facility] 08-10-2025 05:10-0400 Body temperature 95.6 [degF] Dr. Joel Anderson MD Work Phone: [facility] 08-10-2025 05:10-0400 Body weight 85.[address] Joel Anderson MD Work Phone: [facility] 08-10-2025 05:10-0400 Diastolic blood pressure 75 mm[Hg] Dr. Joel Anderson MD Work Phone: 0(447)168-546587 [place] [address] 08-10-2025 05:10-0400 Heart rate 74 /min Dr. Joel Anderson MD Work Phone: [facility] 08-10-2025 05:10-0400 Respiratory rate 18 /min Dr. Joel Anderson MD Work Phone: [facility] 08-10-2025 05:10-0400 SaO2% (BldA) [Mass fraction] 96 % Dr. Joel Anderson MD Work Phone: [facility] 08-10-2025 05:10-0400 Systolic blood pressure 119 mm[Hg] Dr. Joel Anderson MD Work Phone: [facility] 06-28-2025 07:26-0400 Body mass index (BMI) [Ratio] 30.7 kg/m2 Dr. Joel Anderson MD Work Phone: [facility] 06-28-2025 07:26-0400 Body weight 83.[address] Joel Anderson MD Work Phone: [facility] 06-28-2025 07:26-0400 Diastolic blood pressure 78 mm[Hg] Dr. Joel Anderson MD Work Phone: 6(119)899-662387 [place] [address] 06-28-2025 07:26-0400 Heart rate 68 /min Dr. Joel Anderson MD Work Phone: 8(834)196-911695 [place] [address] 06-28-2025 07:26-0400 Respiratory rate 18 /min Dr. Joel Anderson MD Work Phone: 2(691)491-635995 [place] [address] 06-28-2025 07:26-0400 SaO2% (BldA) [Mass fraction] 99 % Dr. Joel Anderson MD Work Phone: 0(741)018-765495 [place] [address] 06-28-2025 07:26-0400 Systolic blood pressure 123 mm[Hg] Dr. Joel Anderson MD Work Phone: 0(971)462-434195 [place] [address] 05-03-2025 08:13-0400 Body height 165.[address] Joel Anderson MD Work Phone: 9(066)799-146195 [place] [address] 05-03-2025 08:13-0400 Body mass index (BMI) [Ratio] 31.1 kg/m2 Dr. Joel Anderson MD Work Phone: 4(938)768-991795 [place] [address] 05-03-2025 08:13-0400 Body weight 84.[address] Joel Anderson MD Work Phone: 7(745)621-314895 [place] [address] 05-03-2025 08:13-0400 Diastolic blood pressure 86 mm[Hg] Dr. Joel Anderson MD Work Phone: 7(406)240-162495 [place] [address] 05-03-2025 08:13-0400 Heart rate 69 /min Dr. Joel Anderson MD Work Phone: 3(484)804-035095 [place] [address] 05-03-2025 08:13-0400 Respiratory rate 16 /min Dr. Joel Anderson MD Work Phone: 5(051)158-703795 [place] [address] 05-03-2025 08:13-0400 Systolic blood pressure 149 mm[Hg] Dr. Joel Anderson MD Work Phone: 4(720)394-759095 [place] [address] 04-30-2025 14:37-0400 Body height 166.4 cm Lashonda Beltrán MD Work Phone: [facility] 04-30-2025 14:37-0400 Body mass index (BMI) [Ratio] 29.99 kg/m2 Lashonda Beltrán MD Work Phone: [facility] 04-30-2025 14:37-0400 Body weight 83.01 kg Lashonda Beltrán MD Work Phone: [facility] 04-30-2025 14:37-0400 Diastolic blood pressure 79 mm[Hg] Lashonda Beltrán MD Work Phone: [facility] 04-30-2025 14:37-0400 Heart rate 70 /min Lashonda Beltrán MD Work Phone: [facility] 04-30-2025 14:37-0400 Respiratory rate 18 /min Lashonda Beltrán MD Work Phone: [facility] 04-30-2025 14:37-0400 SaO2% (BldA) [Mass fraction] 98 % Lashonda Beltrán MD Work Phone: [facility] 04-30-2025 14:37-0400 Systolic blood pressure 143 mm[Hg] Lashonda Beltrán MD Work Phone: [facility] 01-10-2025 15:06-0500 Body height 166.4 cm Lashonda Beltrán MD Work Phone: [facility] 01-10-2025 15:06-0500 Body mass index (BMI) [Ratio] 28.51 kg/m2 Lashonda Beltrán MD Work Phone: [facility] 01-10-2025 15:06-0500 Body weight 78.93 kg Lashonda Beltrán MD Work Phone: [facility] 01-10-2025 15:06-0500 Diastolic blood pressure 90 mm[Hg] Lashonda Beltrán MD Work Phone: [facility] 01-10-2025 15:06-0500 Heart rate 70 /min Lashonda Beltrán MD Work Phone: [facility] 01-10-2025 15:06-0500 Respiratory rate 18 /min Lashonda Beltrán MD Work Phone: [facility] 01-10-2025 15:06-0500 SaO2% (BldA) [Mass fraction] 98 % Lashonda Beltrán MD Work Phone: [facility] 01-10-2025 15:06-0500 Systolic blood pressure 166 mm[Hg] Lashonda Beltrán MD Work Phone: [facility] 12-15-2024 11:22-0500 Body temperature 98.2 [degF] Lashonda Beltrán MD Work Phone: [facility] 12-15-2024 11:22-0500 Diastolic blood pressure 75 mm[Hg] Lashonda Beltrán MD Work Phone: [facility] 12-15-2024 11:22-0500 Heart rate 70 /min Lashonda Beltrán MD Work Phone: [facility] 12-15-2024 11:22-0500 Respiratory rate 16 /min Lashonda Beltrán MD Work Phone: [facility] 12-15-2024 11:22-0500 SaO2% (BldA) [Mass fraction] 98 % Lashonda Beltrán MD Work Phone: [facility] 12-15-2024 11:22-0500 Systolic blood pressure 146 mm[Hg] Lashonda Beltrán MD Work Phone: [facility] 12-14-2024 11:24-0500 Body height 165.1 cm Lashonda Beltrán MD Work Phone: [facility] 12-14-2024 11:24-0500 Body mass index (BMI) [Ratio] 28.79 kg/m2 Lashonda Beltrán MD Work Phone: [facility] 12-14-2024 11:24-0500 Body weight 78.47 kg Lashonda Beltrán MD Work Phone: [facility] 12-13-2024 17:05-0500 Diastolic blood pressure 80 mm[Hg] Dr. Joel Anderson MD Work Phone: [facility] 12-13-2024 17:05-0500 Systolic blood pressure 120 mm[Hg] Dr. Joel Anderson MD Work Phone: [facility] 12-13-2024 08:36-0500 Body height 165.[address] Joel Anderson MD Work Phone: [facility] 12-13-2024 08:36-0500 Body mass index (BMI) [Ratio] 28.8 kg/m2 Dr. Joel Anderson MD Work Phone: [facility] 12-13-2024 08:36-0500 Body weight 78.[address] Joel Anderson MD Work Phone: [facility] 12-13-2024 08:36-0500 Heart rate 78 /min Dr. Joel Anderson MD Work Phone: [facility] 12-13-2024 08:36-0500 Respiratory rate 18 /min Dr. Joel Anderson MD Work Phone: [facility] 12-13-2024 08:36-0500 SaO2% (BldA) [Mass fraction] 96 % Dr. Joel Anderson MD Work Phone: [facility] 11-15-2024 14:46-0500 Body height 165.1 cm Lashonda Beltrán MD Work Phone: [facility] 11-15-2024 14:46-0500 Body mass index (BMI) [Ratio] 28.29 kg/m2 Lashonda Beltrán MD Work Phone: [facility] 11-15-2024 14:46-0500 Body weight 77.11 kg Lashonda Beltrán MD Work Phone: [facility] 11-15-2024 14:46-0500 Diastolic blood pressure 74 mm[Hg] Lashonda Beltrán MD Work Phone: [facility] 11-15-2024 14:46-0500 Heart rate 91 /min Lashonda Beltrán MD Work Phone: [facility] 11-15-2024 14:46-0500 Respiratory rate 18 /min Lashonda Beltrán MD Work Phone: [facility] 11-15-2024 14:46-0500 SaO2% (BldA) [Mass fraction] 98 % Lashonda Beltrán MD Work Phone: [facility] 11-15-2024 14:46-0500 Systolic blood pressure 119 mm[Hg] Lashonda Beltrán MD Work Phone: [facility] 10-16-2024 15:00-0500 Heart rate 93 /min Lashonda Beltrán MD Work Phone: [facility] 10-16-2024 15:00-0500 Respiratory rate 21 /min Lashonda Beltrán MD Work Phone: [facility] 10-16-2024 15:00-0500 SaO2% (BldA) [Mass fraction] 97 % Lashonda Beltrán MD Work Phone: [facility] 10-16-2024 12:16-0500 Body temperature 96.8 [degF] Lashonda Beltrán MD Work Phone: [facility] 10-16-2024 05:57-0500 Body mass index (BMI) [Ratio] 30.56 kg/m2 Lashonda Beltrán MD Work Phone: [facility] 10-16-2024 05:57-0500 Body weight 83.3 kg Lashonda Beltrán MD Work Phone: [facility] 10-13-2024 20:00-0500 Body height 165.1 cm Lashonda Beltrán MD Work Phone: [facility] 10-13-2024 17:17-0500 Diastolic blood pressure 78 mm[Hg] Lashonda Beltrán MD Work Phone: [facility] 10-13-2024 17:17-0500 Systolic blood pressure 125 mm[Hg] Lashonda Beltrán MD Work Phone: [facility] 09-13-2024 12:56-0500 Body height 166.4 cm Lashonda Beltrán MD Work Phone: [facility] 09-13-2024 12:56-0500 Body mass index (BMI) [Ratio] 28.35 kg/m2 Lashonda Beltrán MD Work Phone: [facility] 09-13-2024 12:56-0500 Body weight 78.47 kg Lashonda Beltrán MD Work Phone: [facility] 09-13-2024 12:56-0500 Diastolic blood pressure 83 mm[Hg] Lashonda Beltrán MD Work Phone: [facility] 09-13-2024 12:56-0500 Heart rate 73 /min Lashonda Beltrán MD Work Phone: [facility] 09-13-2024 12:56-0500 Systolic blood pressure 144 mm[Hg] Lashonda Beltrán MD Work Phone: [facility] 02-02-2024 14:39-0400 Body height 166.[address] Joel Anderson Work Phone: [facility] 02-02-2024 14:39-0400 Body mass index (BMI) [Ratio] 26.6 kg/m2 Dr. Joel Anderson Work Phone: [facility] 02-02-2024 14:39-0400 Body weight 73.[address] Joel Anderson Work Phone: [facility] 02-02-2024 14:39-0400 Diastolic blood pressure 58 mm[Hg] Dr. Joel Anderson Work Phone: [facility] 02-02-2024 14:39-0400 Respiratory rate 16 /min Dr. Joel Anderson Work Phone: [facility] 02-02-2024 14:39-0400 Systolic blood pressure 132 mm[Hg] Dr. Joel Anderson Work Phone: [facility] 06-28-2023 09:53-0400 Body temperature 98.4 [degF] Dr. Connor Anderson Work Phone: [facility] 06-28-2023 09:53-0400 Diastolic blood pressure 59 mm[Hg] Dr. Connor Anderson Work Phone: [facility] 06-28-2023 09:53-0400 Heart rate 65 /min Dr. Connor Anderson Work Phone: [facility] 06-28-2023 09:53-0400 Respiratory rate 16 /min Dr. Connor Anderson Work Phone: [facility] 06-28-2023 09:53-0400 SaO2% (BldA) [Mass fraction] 96 % Dr. Connor Anderson Work Phone: [facility] 06-28-2023 09:53-0400 Systolic blood pressure 127 mm[Hg] Dr. Connor Anderson Work Phone: [facility] 06-28-2023 06:30-0400 Body height 166.[address] Connor Anderson Work Phone: [facility] 06-28-2023 06:30-0400 Body mass index (BMI) [Ratio] 27 kg/m2 Dr. Connor Anderson Work Phone: [facility] 06-28-2023 06:30-0400 Body weight 74.[address] Connor Anderson Work Phone: [facility] Encounters Encounter Date Encounter Type Care Provider Facility Start: 08-10-2025 End: 08-10-2025 Patient encounter procedure JORY Romero -[facility] Work Phone: Start: 08-10-2025 End: 08-10-2025 ambulatory Joel Anderson Facility:[facility] Start: 07-30-2025 End: 07-30-2025 ambulatory LASHONDA Moore [facility] Start: 07-30-2025 End: 07-30-2025 Subsequent hospital visit by physician Minoff [facility] Comment on above: Atrial fibrillation/ flutter (Multi) Start: 07-26-2025 End: 07-26-[address] Joel Anderson MD Work Phone: -Sleep Lab Start: 07-26-2025 End: 07-26-2025 Patient encounter procedure Lashon BOONE -[facility] Work Phone: Start: 07-26-2025 End: 07-26-2025 ambulatory Joel Anderson Facility:[facility] Start: 07-10-2025 End: 07-10-[address] Joel Anderson MD Work Phone: -Outpatient Breast Imaging Start: 07-10-2025 End: 07-10-[address] Joel Anderson MD -Outpatient Breast Imaging Work Phone: Start: 07-10-2025 End: 07-10-2025 ambulatory Joel Anderson Facility:[facility] Start: 06-28-2025 End: 06-28-2025 Patient encounter procedure Lashon BOONE -[facility] Work Phone: Start: 06-28-2025 End: 06-28-[address] Joel Anderson MD Work Phone: -[facility] Start: 06-22-2025 End: 06-22-[address] Joel Anderson MD Work Phone: -Laboratory Start: 06-22-2025 End: 06-22-[address] Joel Anderson MD -Laboratory Work Phone: Start: 06-22-2025 End: 06-22-2025 ambulatory Joel Anderson Facility:[facility] Start: 05-19-2025 End: 05-19-[address] Joel Anderson MD Work Phone: -Laboratory Start: 05-19-2025 End: 05-19-2025 Patient encounter procedure Lashon BOONE -Laboratory Work Phone: Start: 05-19-2025 End: 05-19-2025 ambulatory Joel Anderson Facility:[facility] Start: 05-03-2025 End: 05-03-2025 Patient encounter procedure Lashon BOONE -[facility] Work Phone: Start: 05-03-2025 End: 05-03-[address] Joel Anderson MD Work Phone: [facility] Work Phone: Start: 04-30-2025 End: 04-30-2025 Office outpatient visit 25 minutes Lashonda Beltrán MD Work Phone: [facility] Comment on above: Persistent atrial fi brillation (Multi) (Primary Dx); On amiodarone therapy Start: 04-30-2025 End: 04-30-2025 Subsequent hospital visit by physician Joe Beltrán [facility] Comment on above: Atrial fibrillation, unspecified type (Multi); Presence of cardiac pacemaker Start: 04-30-2025 End: 04-30-2025 ambulatory LASHONDA BELTRÁN [facility] Start: 01-22-2025 Non-patient / Non-visit Dr. Leonid villa DO -[facility] Start: 01-22-2025 End: 01-22-[address] Joel Anderson MD Work Phone: [facility] Work Phone: Start: 01-22-2025 End: 01-22-[address] Joel Anderson MD Work Phone: -Pulmonary Services/Neurology Work Phone: Start: 01-22-2025 End: 01-22-2025 ambulatory Joel Anderson Facility:[facility] Start: 01-12-2025 End: 01-12-[address] Joel Anderson MD Work Phone: [facility] Work Phone: Start: 01-12-2025 End: 01-12-[address] Joel Anderson MD Work Phone: -Laboratory Work Phone: Start: 01-12-2025 End: 01-12-2025 ambulatory ROGE TATIANA Facility:[facility] Start: 01-10-2025 End: 01-10-2025 Subsequent hospital visit by physician Joe Device Bedside [facility] Comment on above: Atrial fibrillation, unspecified type (Multi); Presence of cardiac pacemaker Start: 01-10-2025 End: 01-10-2025 ambulatory LASHONDA Moore [facility] Start: 01-10-2025 End: 01-10-2025 Office outpatient visit 25 minutes Lashonda Beltrán MD Work Phone: [facility] Comment on above: On amiodarone therap y (Primary Dx); Atrial fibrillation, unspecified type (Multi) Start: 12-24-2024 [facility]: 12-22-2024 End: 12-22-2024 Subsequent hospital visit by physician Cayetanooff [facility] Comment on above: Atrial fibrillation/ flutter (Multi) Start: 12-22-2024 End: 12-22-2024 ambulatory LASHONDA [facility] Start: 12-14-2024 End: 12-18-[address] [facility] Start: 12-14-2024 End: 12-14-2024 Subsequent hospital visit by physician Tomas Albarranv1 [employer] [facility] Comment on above: Arrived Start: 12-14-2024 End: 12-15-2024 ambulatory LASHONDA Moore [facility] Start: 12-14-2024 End: 12-15-2024 Subsequent hospital visit by physician Lashonda Beltrán MD Work Phone: [facility] Comment on above: Longstanding persist ent atrial fibrillation (Multi) (Primary Dx); Conduction disorder, unspecified; Status post placement of cardiac pacemaker Start: 12-13-2024 End: 12-13-2024 Patient encounter procedure Lashon Baltazar [facility] Work Phone: Start: 12-13-2024 End: 12-13-2024 ambulatory Joel Anderson Facility:[facility] Start: 12-06-2024 End: 12-06-[address] Joel Anderson MD Work Phone: -Laboratory Work Phone: Start: 12-06-2024 End: 12-06-2024 ambulatory [facility] Facility:[facility] Start: 11-15-2024 End: 11-15-2024 Office outpatient visit 25 minutes Lashonda Beltrán MD Work Phone: [facility] Comment on above: Longstanding persist ent atrial fibrillation (Multi) (Primary Dx) Start: 11-15-2024 End: 11-15-2024 ambulatory LASHONDA Moore [facility] Start: 10-29-2024 Encounter for other preprocedural examination ROGE [facility] Start: 10-13-2024 End: 10-16-2024 Evaluation and management of inpatient Lashonda Beltrán MD Work Phone: [facility] Comment on above: Unspecified atrial f ibrillation (Multi) (Primary Dx); Longstanding persistent atrial fibrillation (Multi); Heart block; Primary hypertension; Other acute pericarditis ([facility]) Start: 09-30-2024 End: 09-30-[address] Joel Anderson MD Work Phone: -Laboratory Work Phone: Start: 09-30-2024 End: 09-30-2024 ambulatory ROGE SIMPSON Facility:[facility] Start: 09-14-2024 End: 09-14-2024 ambulatory Joel Anderson Facility:[facility] Start: 09-13-2024 End: 09-13-2024 Office outpatient new 45 minutes Lashonda Beltrán MD Work Phone: [facility] Comment on above: Atrial fibrillation, unspecified type (Multi) (Primary Dx); Preop testing Start: 09-13-2024 End: 09-13-2024 Patient encounter status Lashonda Beltrán MD Work Phone: [facility] Work Phone: Start: 09-13-2024 End: 09-13-2024 ambulatory LASHONDA G [facility] Start: 09-13-2024 End: 09-13-2024 Encounter for other preprocedural examination LASHONDA Moore [facility] Start: 08-16-2024 ambulatory Joel Montgomery lity:[facility] Start: 08-16-2024 End: 08-16-2024 ambulatory Joel Anderson Facility:[facility] Start: 02-09-[address] Broderick Anderson Work Phone: [facility] Work Phone: Start: 02-08-2024 Non-patient / Non-visit Dr. Yamil Anderson Work Phone: [facility] Start: 02-08-2024 End: 02-08-[address] Joel Anderson Work Phone: [facility] Work Phone: Start: 02-08-2024 End: 02-08-[address] Joel Anderson Work Phone: [facility] Work Phone: Start: 02-02-2024 End: 02-02-[address] Joel Anderson Work Phone: [facility] Work Phone: Start: 01-14-2024 End: 01-14-2024 ambulatory [facility] Work Phone: Start: 01-14-2024 End: 01-14-2024 Patient encounter procedure [facility] Start: 06-28-2023 End: 06-28-2023 Admission to same day surgery center Dr. Connor Anderson Work Phone: [facility]-Surgical Day Care Start: 06-28-2023 End: 06-28-[address] Connor Anderson Work Phone: [facility] Work Phone: Start: 05-05-2023 End: 05-05-[address] Connor Anderson Work Phone: [facility] Work Phone: Start: 05-05-2023 End: 05-05-[address] Connor Anderson Work Phone: [facility]-Outpatient Breast Imaging Work Phone: Start: 04-20-2023 End: 04-20-[address] Connor Anderson Work Phone: [facility] Work Phone: Start: 04-20-2023 End: 04-20-[address] Connor Anderson Work Phone: [facility] Start: 03-04-2023 End: 03-04-[address] Connor Anderson Work Phone: [facility] Start: 12-18-2022 End: 12-18-2022 ambulatory [facility] Work Phone: Start: 12-18-2022 End: 12-18-2022 Patient encounter procedure [facility] Start: 09-18-2022 End: 09-18-2022 ambulatory [facility] Work Phone: Start: 09-18-2022 End: 09-18-2022 Patient encounter procedure [facility] Start: 08-05-2022 End: 08-05-2022 ambulatory [facility] Work Phone: Start: 08-05-2022 End: 08-05-2022 Patient encounter procedure [facility] Start: 04-30-2022 End: 04-30-2022 Patient encounter procedure [facility]-Outpatient Bone Densitometry Start: 04-21-2022 End: 04-21-2022 Patient encounter procedure [facility] Procedures Date Procedure Procedure Detail Performing Clinician Start: 07-10-[address] Joel sandhu MD Work Phone: Start: 12-15-2024 CARDIAC DEVICE CHECK CHECK - INPATIENT Helen T Natehaliyamilcollins [facility] Work Phone: Start: 12-15-2024 Radiologic exam chest 2 views Helen Jennifer Natehalinoe [facility] Work Phone: Start: 12-15-2024 Basic metabolic panel calcium total Helen Jennifer Natehalinoe [facility] Work Phone: Start: 12-14-2024 Ecg routine ecg w/least 12 lds trcg only w/o i&r Helen Ortiz [facility] Work Phone: Start: 12-14-2024 Electrophysiology [...] Phone: Start: 05-05-[address] Connor chandar Work Phone: Start: 04-20-2023 CT of face [...] or Population) (1 - 1-dose 75+ series) [facility] Start: 12-15-2025 Diabetes mellitus screening Diabetes Screening [facility] Start: 10-29-2025 End: 10-29-2025 Patient encounter procedure [facility] Start: 10-13-2025 Diabetes mellitus screening Diabetes Screening [facility] Start: 10-13-2025 Thyroid stimulating hormone measurement TSH Level [facility] Start: 07-26-2025 Polysomnography [facility] Start: 07-09-2025 COVID-19 Vaccine ( season) COVID-19 Vaccine ( season) [facility] Start: 07-09-2025 Influenza vaccination [facility] Start: 04-30-2025 End: 04-30-2025 Patient encounter procedure [facility] Start: 01-23-2025 End: 01-23-2025 Patient encounter procedure 01/23/2025 8:00 AM EDT Appointment [facility] Complex [address] [place] [address] [facility] Start: 01-10-2025 End: 01-10-2025 Patient encounter procedure 01/10/2025 3:00 PM EST Office Visit [facility] [address] [place] [phone] [place]onda [place]án [place] [address] [place] [address] [facility] Start: 01-10-2025 End: 01-10-2026 Complete Pulmonary Function Test (Spirometry/DLCO/Lung Volumes) Complete Pulmonary Function Test (Spirometry/DLCO/Lung Volumes) PFT Routine On amiodarone therapy Expected: 01/10/2025 (Approximate), Expires: 01/10/2026 [facility] Service Area Work Phone: Comment on above: Expected: 01/10/2025 (Approximate), Expires: 01/10/2026 Start: 01-10-2025 End: 01-10-2026 Hepatic function 2000 panel - Serum or Plasma Hepatic Function Panel Lab Routine On amiodarone therapy Expected: 01/10/2025 (Approximate), Expires: 01/10/[address] [facility] Work Phone: Comment on above: Expected: 01/10/2025 (Approximate), Expires: 01/10/2026 Start: 01-10-2025 End: 01-10-2026 TSH with reflex to Free T4 if abnormal TSH with reflex to Free T4 if abnormal Lab Routine On amiodarone therapy Expected: 01/10/2025 (Approximate), Expires: 01/10/[address] [facility] Work Phone: Comment on above: Expected: 01/10/2025 (Approximate), Expires: 01/10/2026 Start: 11-28-2024 End: 11-28-2024 Patient encounter procedure 11/28/2024 10:40 AM EST Office Visit [facility] [address] [place] [address] [place]onda Beltrán [place] [address] [place] [address] [facility] Start: 11-21-2024 End: 11-21-2024 Patient encounter procedure 11/21/2024 2:00 PM EST Office Visit [facility] [address] [place] [phone] [place]ashonda [place]trán [place] [address] [place] [address] [facility] Start: 09-27-2024 End: 03-13-2025 Basic metabolic 2000 panel - Serum or Plasma Basic Metabolic Panel Lab Routine Atrial fibrillation, unspecified type (Multi) Preop testing Expected: 09/27/2024, Expires: 03/13/2025 [facility] Service Area Work Phone: Comment on above: Expected: 09/27/2024 , Expires: 03/13/2025 Start: 09-27-2024 End: 03-13-2025 CBC panel - Blood by Automated count CBC Lab Routine Atrial fibrillation, unspecified type (Multi) Preop testing Expected: 09/27/2024, Expires: 03/13/[address] [facility] Work Phone: Comment on above: Expected: 09/27/2024 , Expires: 03/13/2025 Start: 07-09-2024 COVID-19 Vaccine ( season) COVID-19 Vaccine ( season) [facility] Start: 07-09-2024 Influenza vaccination Influenza Vacc ine (#1) [facility] Start: 06-28-2023 Ambulation without limitation [facility] Start: 06-28-2023 Elevation of head of bed [facility] Start: 06-28-2023 Medical regimen orde rs management [facility] Start: 06-28-2023 [facility] Start: 06-28-2023 Procedure discontinued [facility] Start: 06-28-2023 Taking patient vital signs [facility] Start: 06-28-2023 Vital signs measurements [facility] Start: 06-28-2023 Medication education [facility] Start: 01-25-2023 DTaP/Tdap/Td Vaccine s (3 - Td or Tdap) DTaP/Tdap/Td Vaccines (3 - Td or Tdap) [facility] Start: 04-30-2022 Dual energy X-ray absorptiometry Dexa Bone Density Study [facility] Work Phone: Start: 2020 Pneumococcal Vaccine : 65+ Years (1 of 1 - PCV) Pneumococcal Vaccine: 65+ Years (1 of 1 - PCV) [facility] Start: 2020 Screening for osteoporosis Bone Density Scan [facility] Start: 2015 RSV High Risk: (Elde rly (60+) or Population) (1 - Risk 60-74 years 1-dose series) RSV High Risk: (Elderly (60+) or Population) (1 - Risk 60-74 years 1-dose series) [facility] Start: 2005 Pneumococcal vaccination Pneum ococcal Vaccine (1 of 1 - PCV) [facility] Start: 1995 Screening for malign ant neoplasm of breast Mammogram [facility] Start: 1973 Hepatitis C screening Hepatitis C Sc reening [facility] Start: 1956 MMR Vaccines (1 of 1 - Standard series) MMR Vaccines (1 of 1 - Standard series) [facility] Start: 1955 Lipid panel Lipid Panel [facility] Start: 1955 Medicare Annual Well ness Visit Medicare Annual Wellness Visit (AWV) [facility] Start: 1955 Screening for malign ant neoplasm of colon [facility] Start: 1955 Screening for osteoporosis Bone Density Scan [facility] Start: 1955 Thyroid stimulating hormone measurement TSH Level [facility] Start: 1955 Yearly Adult Physical Yearly Adult P hysical [facility] Basic metabolic 2008 panel with ionized calcium - Serum or Plasma [facility] End: 01-10-2025 Cardiac device check - In Clinic [facility] Service Area Work Phone: Comment on above: Once for 1 Occurrenc es starting 01/10/2025 until 01/10/2025 End: 04-30-2025 Cardiac device check - In Clinic [facility] Area Work Phone: Comment on above: Once for 1 Occurrenc es starting 04/30/2025 until 04/30/2025 Cardiac device check - Inpatient Cardiac device check - Inpatient Implantable Cardiac Device Routine Status post placement of cardiac pacemaker 12/15/2024 9:40 AM [facility] [place] [facility] Work Phone: End: 12-22-2024 Cardiac Device Check - Remote [facility] Area Work Phone: Comment on above: Once for 1 Occurrenc es starting 12/22/2024 until 12/22/2024 End: 07-30-2025 Cardiac Device Check - Remote [facility] Area Work Phone: Comment on above: Once for 1 Occurrenc es starting 07/30/2025 until 07/30/2025 End: 10-22-2024 CBC panel - Blood by Automated count CBC Lab Routine Morning draw (Lab) for 1 Weeks starting 10/16/2024 until 10/22/2024, [address] [facility] Work Phone: Comment on above: Morning draw (Lab) f or 1 Weeks starting 10/16/2024 until 10/22/2024, 1 completed End: 12-14-[address] [facility] Work Phone: Comment on above: Once for 1 Occurrenc es starting 12/14/2024 until 12/14/2024 ECG 12 lead (Clinic Performed) ECG 12 lead (Clinic Performed) ECG Routine Atrial fibrillation, unspecified type (Multi) 09/13/2024 1:00 PM [facility] [place] [facility] Work Phone: ECG 12 lead (Clinic Performed) ECG 12 lead (Clinic Performed) ECG Routine Longstanding persistent atrial fibrillation (Multi) 11/15/2024 1:50 PM [facility] Area Work Phone: ECG 12 lead (Clinic Performed) ECG 12 lead (Clinic Performed) ECG Routine Atrial fibrillation, unspecified type (Multi) 01/10/2025 3:00 PM [facility] [place] [facility] Work Phone: ECG 12 lead (Clinic Performed) ECG 12 lead (Clinic Performed) ECG Routine Persistent atrial fibrillation (Multi) 04/30/2025 2:[address] [facility] Work Phone: Electrocardiogram, 12-lead PRN ACS symptoms [facility] Work Phone: Comment on above: As needed until disc ontinued starting 10/13/2024 As needed until disc ontinued starting 10/13/2024, 4 completed Electrocardiogram, 12-lead PRN ACS symptoms Electrocardiogram, 12-lead PRN ACS symptoms ECG Routine 10/15/2024 1:05 PM [facility] [place] [facility] Work Phone: Electrocardiogram, 12-lead PRN ACS symptoms Electrocardiogram, 12-lead PRN ACS symptoms ECG Routine 10/16/2024 11:00 AM [facility] [place] [facility] Work Phone: Electrocardiogram, 12-lead PRN ACS symptoms Electrocardiogram, 12-lead PRN ACS symptoms ECG Routine 10/13/2024 6:25 PM [facility] [place] [facility] Work Phone: End: 10-22-2024 Magnesium [Mass/volume] in Serum or Plasma Magnesium Lab Routine Morning draw (Lab) for 1 Weeks starting 10/16/2024 until 10/22/2024, [address] [facility] Work Phone: Comment on above: Morning draw (Lab) f or 1 Weeks starting 10/16/2024 until 10/22/2024, 1 completed Patient referral [facility] Work Phone: Polysomnography [facility] End: 10-22-2024 Renal function 2000 panel - Serum or Plasma Renal Function Panel Lab Routine Morning draw (Lab) for 1 Weeks starting 10/16/2024 until 10/22/2024, [address] [facility] Work Phone: Comment on above: Morning draw (Lab) f or 1 Weeks starting 10/16/2024 until 10/22/2024, 1 completed [facility] Payers Date Payer Category Payer Self-pay [id number] 2020 Medicare MEDICARE PART A AND B [id number] 2020 Medicare supplementa l policy (as second payer) [facility] MEDICARE SELECT SUPPLEMENT [id number] 5 2020 Medicare [id number] 2009 Unknown [id number] 1955 Unknown [id number] 2.16.840.1.720510.3.579 .2.1241 1955 Unknown [id number] 2.16840.1.629610.3.579 .2.124 1955 Unknown [id number] 2.16.840.1.091227.3.579 .2.1242 1955 Unknown [id number] 2.16.840.1.687904.3.579 .2.124 1955 Unknown [id number] 2.16.840.1.370832.3.579 .2.124 1955 Unknown [id number] 2.16.840.1.564606.3.579 .2.1241 1955 Unknown [id number] 2.16.840.1.722216.3.579 .2.1241 1955 Unknown [id number] 2.16.840.1.505751.3.579 .2.1241 1955 Unknown [id number] 2.16840.1.260268.3.579 .2.1244 1955 Unknown [id number] 2.840.1.768299.3.579 .2.1244 1955 Unknown [id number] 2.16840.1.089672.3.579 .2.124 Unknown [id number] 2.16840.1.595823.3.579 .2.462 Unknown [id number] 2.16.840.1.602645.3.579 .2.462 Unknown [id number] 2.16840.1.544831.3.579 .2.462 Unknown [id number] 2.16840.1.296004.3.579 .2.462 Unknown [id number] 2.16840.1.697764.3.579 .2.462 Unknown [id number] 2.16.840.1.698327.3.579 .2.462 Unknown [id number] 2.16.840.1.487678.3.579 .2.462 Unknown [id number] 2.16.840.1.795899.3.579 .2.462 Unknown [id number] 2.16840.1.542491.3.579 .2.462 Unknown [id number] 2.16.840.1.031060.3.579 .2.462 Unknown [id number] 2.16.840.1.021137.3.579 .2.462 Unknown [id number] 2.16.840.1.650173.3.579 .2.462 Unknown [id number] 2.16.840.1.411129.3.579 .2.462 Unknown [id number] 2.16.840.1.020027.3.579 .2.462 Unknown [id number] 2.16.840.1.983776.3.579 .2.462 Unknown [id number] 2.16.840.1.295207.3.579 .2.462 Social History Date Type Detail Facility Tobacco smoking stat us NCIS Unknown if ever smoked [facility] Work Phone: Start: 1955 Sex Assigned At Female [facility] Start: 06-21-2023 End: 02-02-2024 Tobacco smoking status NHIS Unknown if ever smoked [facility] Start: 09-13-2024 End: 08-10-2025 Tobacco smoking status NHIS Never smoked tobacco [facility] Work Phone: Start: 09-13-2024 Tobacco use and exposure Smokeless tobacco non-user [facility] Work Phone: Start: 09-13-2024 End: 12-15-2024 History of Social function [facility] Start: 09-13-2024 End: 12-15-2024 Tobacco use panel [facility] Start: 1955 Sex assigned at Not on file [facility] Work Phone: Start: 09-03-2024 End: 01-10-2025 Exposure to SARS-CoV-2 (event) Not sure [facility] Has the electric, [employer], oil, or water company threatened to shut off services in your home in past 12Mo No [facility] Start: 10-03-2022 Frequency of Communication with Friends and Family Not on file [facility] Work Phone: Are you now , , , , never or living with a partner? [facility] Work Phone: How often to you hav e a drink containing alcohol? Monthly or less [facility] How many standard drinks containing alcohol do you have on a typical day? 1 or [address] [facility] Work Phone: How often do you hav e 6 or more drinks on 1 occasion? Never [facility] Work Phone: How hard is it for y ou to pay for the very basics like food, housing, medical care, and heating Not very hard [facility] Work Phone: (I/We) worried abdifatah er (my/our) food would run out before (I/we) got money to buy more. Never true [facility] Work Phone: Start: 12-14-2024 End: 04-30-2025 Alcoholic beverage intake Current drinker of alcohol (finding) [facility] Work Phone: Start: 12-14-2024 Alcohol Comment on vacation [facility] Work Phone: Start: 12-14-2024 Gender identity Identifies as female gender (finding) [facility] Work Phone: Start: 01-25-2025 End: 02-01-2025 Sex Female (finding) [facility] NEGATED: Highlighted row [facility] Medical Equipment Procedure Code Equipment Code Equipment Origin al Text Equipment Identifier Dates FESS (functional endoscopic sinus surgery) Plant polysaccharide haemostatic agent, bioabsorbable [id number] Start: 06-28-2023 Lead, Capsurefix Novus, 58 Cm - [id number] Start: 10-13-2024 Lead, Pacemaker, Ultipace 58cm - [id number] - [id number] Start: 12-14-2024 Lead, Pacemaker, Avel 52cm - [id number] - [id number] Start: 12-14-2024 Pacemaker, Gener ator, Dual Assurity [facility] - [id number] - [id number] Start: 12-14-2024 Comment on above: Description: DDD 70- 120bpm Goals Date Patient Goal Desired Activity /State Functional Status Date Assessment Result Facility 12-15-2024 Are you deaf, or do you have serious difficulty hearing No 12/15/2024 11:29 AM Hannah Saba, DANIEL No [facility] Work Phone: 12-15-2024 Are you blind, or do you have serious difficulty seeing, even when wearing glasses No 12/15/2024 11:29 AM Hannah Saba, RN No [facility] Work Phone: 12-15-2024 Do you have serious difficulty walking or climbing stairs No 12/15/2024 11:29 AM Hannah Saba, DANIEL No [facility] Work Phone: 12-15-2024 Do you have difficul ty dressing or bathing No 12/15/2024 11:29 AM Hannah Saba, RN No [facility] Work Phone: 12-15-2024 Because of a physica l, mental, or emotional condition, do you have difficulty doing errands alone such as visiting a physician's office or shopping No 12/15/2024 11:29 AM Hannah Saba, DANIEL No [facility] Work Phone: Mental Status Date Assessment Result Facility 12-15-2024 Because of a physica l, mental, or emotional condition, do you have serious difficulty concentrating, remembering, or making decisions No 12/15/2024 11:29 AM Hannah Saba, RN No [facility] Work Phone: 06-28-2023 Cognitive function Voice/Name [facility] Work Phone: Clinical Notes 06-28-2023 to 05-03-2025 Note Date & Type Note Facility 05-03-2025 Evaluation note Diagnosis Onset Date Resolution Hx of cardiac pacemaker acute J [facility] 2024 7:49am PAF (paroxysmal atrial fibrillation) acute May 03, 2025 7:49am Persistent atrial fibrillation acute May 03, 2025 7:49am Hypertension chronic May 03, 025 7:49am [facility] Work Phone: 1(688) 512-427306-26-2025 Evaluation note* Diagnosis Onset Date Resolution Status Admit Date Hx of cardiac pacemaker acute J [facility] 2024 7:49am PAF (paroxysmal atrial fibrillation) acute May 03, 2025 7:49am Persistent atrial fibrillation acute May 03, 2025 7:49am Hypertension chronic May 03, 025 7:49am Hx of cardiac pacemaker acute A 2024 7:43am PRIETO (obstructive sleep apnea) acute June 28, 2025 7:43am PAF (paroxysmal atrial fibrillation) acute June 28 7:43am Hypertension chronic June 28, 2025 7:43am [facility] Work Phone: 1(927) 601-136306-26-2025 Evaluation note* Diagnosis Onset Date Resolution Status Admit Date Hx of cardiac pacemaker acute J [facility] 2024 7:49am PAF (paroxysmal atrial fibrillation) acute May 03, 2025 7:49am Persistent atrial fibrillation acute May 03, 2025 7:49am Hypertension chronic May 03, 025 7:49am Hx of cardiac pacemaker acute A ug2024 7:43am PRIETO (obstructive sleep apnea) acute June 28, 2025 7:43am PAF (paroxysmal atrial fibrillation) acute June 28 7:43am Hypertension chronic June 28, 2025 7:43am PRIETO (obstructive sleep apnea) acute August 10, 2025 8:02am PAF (paroxysmal atrial fibrillation) acute August 10 8:02am Hypertension chronic August 10, 2025 8:02am [facility] Work Phone: 1(440) 294-980506-23-2025 History of Present illness Narrative* Lashonda Beltrán [...] been made to prevent any error in risk developer, however minor errors may be present [1] No Known Allergies documented in this [facility] Work Phone: 1(220) 548-577503-05-2025 History of Present illness Narrative* Lashonda Beltrán [...] been made to prevent any error in risk developer, however minor errors may be present [facility] Phone: 1(783) 921-921202-07-2025 Nurse Note* Jodi Nugent RN - 12/15/2024 [...] removed. New scripts verified with home pharmacy. [facility]02-07-2025 Nurse Note* Jodi Nugent RN - [...] verified with home pharmacy. [facility] Work Phone: 1(976) 410-977502-07-2025 History of Present illness Narrative* Hannah Caba, RN - 12/15/2024 11:30 AM EST 12/15/24 1127 Discharge Planning Living Arrangements Spouse/significant other Support [...] were you homeless or living in a nursing home (including now)? N Transportation Needs In the [...] at bedside and explained my role as acute care nursing assistant. She lives in the house with her . She is independent with her care at home. She drives. Patient denies use of any ambulatory devices. No oxygen in use at home, no HD. Her PCP is Dr. Joel Anderson ) and she seen him one month ago. [facility]acy [facility] [place]. She is able to afford medications and to get to her doctors appointments. Patient had Dual pacemaker implanted yesterday. Patient denies any needs going home. Her is driving her home. 113 Patient is medically ready for discharge They are being discharged to: Home __Husband will pick patient up [facility] N/A Patient denies any other needs [...] visiting the doctor? N documented in this [facility] Work Phone: 1(963) 647-801802-07-2025 Plan of care note* Care Plan - [...] stable for the duration of the shift [facility]02-07-2025 Miscellaneous Notes* Care Plan - Edwige [...] nutritional needs Outcome: Progressing documented in this [facility] Work Phone: 1(369) 790-744702-06-2025 Plan of care note* Care Plan - [...] appropriate for maintaining nutritional needs Outcome: Progressing [facility] Work Phone: 1(888) 843-536702-06-2025 NoteProcedures: Implant of dual chamber PPM (46812), cardioversion (06038) A left infraclavicular incision yielded access for [...] was tolerated well and there were no complications.[id number] Hospital Discharge instructions* Discharge Instructions* Helen Ortiz APRN-RESEARCH SPECIALIST - 12/14/2024 1:13 PM EST Images from [...] their own Call the Device Clinic at [phone] if you have any questions about your [...] your device ID card to the airport security administrator. The detector wand may be used below waist level and to inspect your shoes. Read the patient booklet for more information. You may call the device clinic or the patient services department of the device chief data officer with questions about specific electrical appliances and interference problems. It is your responsibility to make and keep appointments. After each visit on your way out, make an appointment for your next visit. Please follow the recommendations of your doctor for the frequency of appointments. Your Appointment: Date: Time: [facility] [address] [place] [address] [facility] [address] [address] [facility] [place] [address] [facility] [address] [place] [address] [facility] [address] [place] [address] [facility] [address] [place] [address] [facility] [address] [place] [address] [facility] [address] [place], [place] [address] [facility] [address] [place] [address] [facility] [address] [place] [address] [facility] [address] [place] [address] [facility] [address] [place] [address] [facility] [address] [place] [address] [facility] [address] [place] [address] [facility] ([facility]) [address] [place] [address] [facility] [address], [place], [place] [address] Appointment [phone] Device Clinic: [phone] (this is Not an emergency number) Frequent [...] Other Sources of Information: Device Clinic Nurses: [phone] Patient Services Department of the chief data officer of your ICD The Internet holds an abundance of information. Some internet sites of interest: www.medtronic.com www.[employer].Redfin www.Guest of a Guest Scientific.com www.heartWooMeythm.com www.Wear My Tags.Redfin This info is a general resource. It is not meant to replace your health care provider s advice. Ask your doctor or health care team any questions. Always follow their instructions. * Attachments The following attachments cannot be sent through Care Everywhere. * Amiodarone, ADULT (Ghanaian) * Doxycycline, ADULT (Ghanaian) * Pacemaker Insertion Discharge Instructions (Ghanaian) * Tramadol, ADULT (Ghanaian) documented in this [facility] Work Phone: 1([phone]) 884-172502-06-2025 History and physical note* JOSH Schmitt - [...] Ablation A-Fib; Surgeon: Lashonda Beltrán MD; Location: [place] [address] Cardiac Inner Tube Tuber Machine Operator; Service: Electrophysiology; Laterality: N/A; carto CARDIAC ELECTROPHYSIOLOGY PROCEDURE N/A 10/13/2024 Procedure: Temporary Pacemaker Insertion; Surgeon: Lashonda Beltrán MD; Location: [place] [address] Cardiac Inner Tube Tuber Machine Operator; Service: Electrophysiology; Laterality: N/A; DILATION AND CURETTAGE [...] LDL, VLDL, TRIG, NHDL in the last 18326 hours. Cardiac No lab exists for component: CK, CKMBP Hemoglobin A1C: No results for input(s): HGBA1C in the last 67675 hours. TSH/ Free T4: Recent Labs 10/13/241933 TSH 5.02* Iron: No results for input(s): FERRITIN, TIBC, IRONSAT, BNP in the last 31039 hours. Coag: ABO: No results found for: [...] QT Interval 354 QTC Calculation(Bazett) 435 R [place] 26 T [place] 48 QRS Count 15 Q Onset 221 [...] dc home tomorrow 12/13/24 on prophylactic antibiotics CUSTOMER EXPERIENCE RETAIL CLERK discussed with Dr. Beltrán regarding plan of care/ discharge plan I spent 30 minutes in the professional and overall care of this patient. JOSH Schmitt [facility] [place] [facility] Work Phone: 1([phone]) 974-466602-06-2025 History and physical note* Helen Ortiz, TERRAZZO WORKER HELPER-RESEARCH SPECIALIST - 12/14/2024 11:21 AM EST History Of [...] Ablation A-Fib; Surgeon: Lashonda Beltrán MD; Location: [place] [address] Cardiac Inner Tube Tuber Machine Operator; Service: Electrophysiology; Laterality: N/A; carto CARDIAC ELECTROPHYSIOLOGY PROCEDURE N/A 10/13/2024 Procedure: Temporary Pacemaker Insertion; Surgeon: Lashonda Beltrán MD; Location: [place] [address] Cardiac Inner Tube Tuber Machine Operator; Service: Electrophysiology; Laterality: N/A; DILATION AND CURETTAGE [...] 10/16/24 0150 10/15/24 0340 10/14/24 0600 10/13/24 193 NA 139 137 134* 139 K 3.9 [...] Magnesium: Recent Labs 10/16/24 0150 10/15/24 0340 10/14/2459910/13/241933 MG 2.12 1.68 1.77 1.87 Lipid Panel: No results for input(s): CHOL, HDL, CHHDL, LDL, VLDL, TRIG, NHDL in the last 42053 hours. Cardiac No lab exists for component: CK, CKMBP Hemoglobin A1C: No results for input(s): HGBA1C in the last 42350 hours. TSH/ Free T4: Recent Labs 10/13/241933 TSH 5.02* Iron: No results for input(s): FERRITIN, TIBC, IRONSAT, BNP in the last 85857 hours. Coag: ABO: No results found for: [...] QT Interval 354 QTC Calculation(Bazett) 435 R [place] 26 T [place] 48 QRS Count 15 Q Onset 221 T Offset 398 QTC Fredericia 407 Narrative Atrial fibrillation Abnormal ECG When compared with ECG of 16-OCT-2024 09:44, Nonspecific T wave abnormality, improved in Inferior leads T wave inversion no longer evident in Anterior leads Confirmed by Lashonda Beltrán ([id number]) on 11/16/2024 8:51:44 AM Echo: Echocardiogram: No [...] dc home tomorrow 12/13/24 on prophylactic antibiotics CUSTOMER EXPERIENCE RETAIL CLERK discussed with Dr. Beltrán regarding plan of care/ discharge plan I spent 30 minutes in the professional and overall care of this patient. JOSH Schmitt documented in this [facility] Work Phone: 1(212) 324-862402-05-2025 Evaluation note* Diagnosis Onset Date Resolution Status Admit Date Persistent atrial fibrillation acute December 13, 2024 8:29am Hypertension chronic December 8:29am [facility] Work Phone: 1(583) 320-329501-08-2025 History of Present illness Narrative* Lashonda Beltrán MD - 11/15/2024 2:40 PM EST Referred by Dr. Beltrán, Lashonda Moore MD provider found for No chief complaint [...] been made to prevent any error in risk developer, however minor errors may be present documented in this [facility] Work Phone: 1(910) 232-620112-09-2024 History of Present illness Narrative* Keisha Madrid, PT - 10/16/2024 4:09 PM EST Physical Therapy Physical Therapy Evaluation & Treatment Patient Name: Radha Thomas Department: [facility] Room: 12/12-A Today's Date: 10/16/2024 Time Calculation Start Time: [...] Prior Function Per Pt/Caregiver Report Level of Crosby: Independent with ADLs and functional transfers ADL Assistance: Independent Homemaking Assistance: Independent Ambulatory Assistance: Independent (Community ambulator, no AD, denies recent falls) Vocational: Retired (Used to work at [employer] Leisure: (+) drives, likes to be active [...] noted but no acute LOB Outcome Measures: [facility] Basic Mobility Turning from your back to [...] only Sitting: Supervision or set-up only Transfer Mcs-mm-Bwlup: Supervision or set-up only Transfer Njleuf-yg-Qqb: Supervision or set-up only Total Score: 25 [...] result verified on 10/15/2024 0304 on specimen/case [id number] called with component [facility] for procedure Troponin I, High Sensitivity [...] for AF complicated by sinus arrest (ventricular pzdsqs57c with retrograde conduction) s/p temp RV lead [...] please [place] [phone] on weekdays 7AM - 6PM and weekends 7AM - 2PM, or [place] [phone] at all other times. The EP device nurse can be reached at pager [phone] during regular business hours M-F. Peripheral IV [...] Ramírez - 10/16/2024 2:12 PM EST 10/16/24 6198 Discharge Planning Living Arrangements Spouse/significant other Support Systems Spouse/significant other;Children;Friends/neighbors Assistance Needed n/a Type of Residence Private residence Who is requesting discharge planning? Provider Home or Post Acute Services (TBD) Does the patient need discharge transport arranged? No - ICU TREATMENT PLAN: Patient presented to CICU from EP lab after undergoing elective Afib ablationcomplicated by CHB s/p TVP. - Payer: Medicare, [facility] . -Support System: Spouse, chidlren - Planned [...] you for this consultation. EP consult pager: [phone] (weekday 7AM-6PM, weekend 7AM-2PM, other times: [phone]) Peripheral IV 10/13/24 20 G Proximal;Right;Ventral Forearm (Active) Site Assessment Clean;Dry;Intact 10/14/24399 Dressing Type Transparent 10/14/24 0400 Line Status Flushed 10/14/24 0400 Dressing Status Clean;Dry;Occlusive 10/14/24 0400 Number of days: 1 Arterial Line 10/13/24 Left Radial (Active) Site Assessment Clean;Dry;Intact 10/14/24 040 Line Status Pulsatile blood flow 10/14/24 040 Art Line Waveform Appropriate 10/14/24 040 Art Line Interventions Zeroed and calibrated;Leveled;Connections checked and tightened;Flushed per protocol 10/14/24 040 Color/Movement/Sensation Capillary refill less than 3 sec;Distal pulses palpable 10/14/24 040 Dressing Type Antimicrobial patch;Transparent 10/14/24 040 Dressing Status Clean;Dry;Occlusive 10/14/24 0400 Number of days: 1 Pacer Wires (Active) Pacer Wire Status Ventricular wires connected to pacer 10/14/24 08 Site Assessment Clean;Dry;Intact 10/14/24 0800 How Pacer Wires are Secured Ventricular wires secured to dressing 10/14/24 08 Dressing Status Clean;Dry;Intact 10/14/24 08 Number of days: 1 Code Status: Full Code I spent 30 minutes in the professional and overall care of this patient. Marion Carrillo MD Cosigned by Lashonda Beltrán MD at 10/16/2024 8:23 AM EST documented in this [facility] Work Phone: 1(373) 248-113912-09-2024 Plan of care note* Care Plan - [...] and maintenance of device (specify) Outcome: Progressing [facility]12-09-2024 Miscellaneous Notes* Care Plan - Mary [...] RN Outcome: Progressing Goal: Prevent/minimize sheer/friction injuries 10/15/2024 035 by Paula Moore RN Outcome: [...] Attending: * Lashonda Beltrán - Primary Resident/Fellow/Other Cephalometric Analyst: Surgeons and Role: * Adria Luciano MD - Fellow Indications: Pre-op Diagnosis * Unspecified atrial fibrillation (Multi) [I48.91] Post-procedure diagnosis: Post-op Diagnosis * Unspecified atrial fibrillation (Multi) [I48.91] Procedure(s): Ablation A-Fib 32312 - UT COMPRE EP EVAL ABLTJ ATR FIB PULM [...] Pacemaker Lead, Capsurefix Novus, 58 Cm - [id number] - Implanted Inventory item: LEAD, CAPSUREFIX NOVUS, 58 CM Model/Cat number: 5076-58 Serial number: [id number] Collaborating Supervising Physician: [employer] Lot number: [id number] Device identifier: [id number] Implant Date: 10/13/2024 GUDID Information Request status Successful Brand name: Capsurefix Novus Version/Model: 5076-58 Company name: [employer] MRI safety info as of 10/13/24: Labeling does not contain MRI Safety Information Contains dry or latex rubber: No DN P.T. name: Endocardial/interventricular septal pacing lead As of 10/13/2024 Status: Implanted Plan: -Admit to CICU -Continue apixaban 5 twice daily, starting tonight -2 hours bedrest and hakjxv-mj-gtdul can be removed if no oozing -Rhythm checks throughout the weekend, potentially may need pacemaker if no return of rhythm -do not attempt any removal of the screw in lead without EP approval -start protonix 40 daily for 30 days -hold flecainide and other BB Estimated Blood Loss: 5 mL Anesthesia: General Anesthesia Staff: Anesthesiologist: Vincent Nix MD; Paola Del Angel MD ANALOG CIRCUIT DESIGNER: Jarred Guerrero APRN-ANALOG CIRCUIT DESIGNER Any Specimen(s) Removed: No specimens collected during this procedure. Disposition: CICU Electronically signed by: Adria Luciano MD, 10/13/2024 5:23 PM Cosigned by Lashonda Beltrán MD at 10/13/2024 11:16 PM EST * Hospital Course - Huy Sun PA-C - 10/12/2024 11:17 AM EST documented in this [facility] Work Phone: 1(720) 833-671412-09-2024 Plan of care note* Care Plan - [...] Promote skin healing Outcome: Progressing Flowsheets (Taken 10/16/2024 0426) Promote skin healing: Protective dressings over bony [...] and maintenance of device (specify) Outcome: Progressing [facility]12-08-2024 Plan of care note* Care Plan - Nubia Bentno RN - 10/15/2024 12:03 PM EST The [...] and maintenance of device (specify) Outcome: Progressing [facility]12-08-2024 Plan of care note* Care Plan [...] Paula Moore RN Outcome: Progressing 10/15/2024354 by Palua Moore RN Outcome: Progressing Goal: Vital signs return to baseline 10/15/2024354 by Paula Moore RN Outcome: Progressing 10/15/2024354 by Paula Moore RN Outcome: Progressing Goal: Care and maintenance of device (specify) 10/15/2024354 by Paula Moore RN Outcome: Progressing 10/15/2024354 by Paula Moore RN Outcome: Progressing The clinical goals for the shift include Patient will remain hemodynamically stable through the shift [facility]12-07-2024 Plan of care note* Care Plan [...] Goal: Free from fall injury Outcome: Progressing [facility] Work Phone: 1(757) 474-979112-06-2024 Note* Post-Procedure Note - Adria Luciano MD - 10/13/2024 1:29 PM EST Physician Transition of Care Summary Invasive Cardiovascular Lab Procedure Date: 10/13/2024 Attending: * Lashonda Beltrán - Primary Resident/Fellow/Other Cephalometric Analyst: Surgeons and Role: * Adria Luciano MD - Fellow Indications: Pre-op Diagnosis * Unspecified atrial fibrillation (Multi) [I48.91] Post-procedure diagnosis: Post-op Diagnosis * Unspecified atrial fibrillation (Multi) [I48.91] Procedure(s): Ablation A-Fib 22530 - UT COMPRE EP EVAL ABLTJ ATR FIB PULM [...] Pacemaker Lead, Renea Estes, 58 Cm - [id number] - Implanted Inventory item: LEAD, RENEA ESTES, 58 CM Model/Cat number: 5076-58 Serial number: [id number] Collaborating Supervising Physician: [employer] Lot number: [id number] Device identifier: [id number] Implant Date: 10/13/2024 GUDID Information Request status Successful Brand name: Herrerafichristian Estes Version/Model: 5076-58 Company name: [employer] MRI safety info as of 10/13/24: Labeling does not contain MRI Safety Information Contains dry or latex rubber: No GMDN P.T. name: Endocardial/interventricular septal pacing lead As of 10/13/2024 Status: Implanted Plan: -Admit to CICU -Continue apixaban 5 twice daily, starting tonight -2 hours bedrest and mlblio-jv-moklx can be removed if no oozing -Rhythm checks throughout the weekend, potentially may need pacemaker if no return of rhythm -do not attempt any removal of the screw in lead without EP approval -start protonix 40 daily for 30 days -hold flecainide and other BB Estimated Blood Loss: 5 mL Anesthesia: General Anesthesia Staff: Anesthesiologist: Vincent Nix MD; Paola Del Angel MD ANALOG CIRCUIT DESIGNER: Jarred Guerrero APRN-ANALOG CIRCUIT DESIGNER Any Specimen(s) Removed: No specimens collected during this procedure. Disposition: CICU Electronically signed by: Adria Luciano MD, 10/13/2024 5:23 PM Cosigned by Lashonda Beltrán MD at 10/13/2024 11:16 PM EST [facility] Work Phone: 1(605) 970-751112-06-2024 Attending History and physical note* Adria Luciano [...] been made to prevent any error in risk developer, however minor errors may be present [facility] Work Phone: 1(175) 652-729712-06-2024 History and physical note* Adria Luciano MD - 10/13/2024 12:41 PM EST H&P reviewed. The patient was examined and there are no changes to the H&P. Source Note - Lashonda Beltrán MD - 09/13/2024 1:00 PM EST Referred by Lasohnda Mosqueda MD provider found for Chief Complaint [...] mcg tablet 1 tablet, Daily (629) lisinopril 10 mg tablet 1 tablet, Daily (629) metoprolol tartrate (Lopressor) 25 mg tablet 1 tablet, Every 12 hours scheduled (629,0) triamcinolone (Kenalog) 0.1 % cream Apply topically. [...] been made to prevent any error in risk developer, however minor errors may be present documented in this [facility] Work Phone: 1(681) 713-372012-06-2024 Hospital Discharge instructions* Discharge Instructions* Rainer Tay [...] too low. He was sent to the [facility] given this temporary pacing device. Over your [...] without issue. Follow-up as scheduled with your hair spring winder, their office will call you and schedule you for your follow up appointment. Medications at Discharge: -Pantoprazole 40 mg twice daily (acid suppression medication) -Colchicine 0.6 mg twice daily for the next 21 days -Continue taking your home Metoprolol 25 mg twice daily -STOP TAKING YOUR HOME FLECAINIDE, PLEASE FOLLOW UP WITH YOUR SUPPLY CHAIN DEVELOPMENT MANAGER TO DISCUSS RESTARTING MEDICATION. INSTRUCTIONS AFTER ABLATION [...] up with your primary care physician, primary volunteer assistant, and any other specialists you normally see. [...] of these symptoms become excessive, contact your hair spring winder or go to the emergency room. No [...] after ablation as scheduled documented in this [facility] Work Phone: 1(669) 164-531412-05-2024 Hospital Note* Hospital Course - Huy Sun PA-C - 10/12/2024 11:17 AM EST [facility] Work Phone: 1(769) 407-206011-06-2024 History of Present illness Narrative* Lashonda Beltrán [...] tablet 1 tablet, Every 12 hours scheduled (629,1829) levothyroxine (Synthroid, Levoxyl) 50 mcg tablet 1 tablet, Daily (629) lisinopril 10 mg tablet 1 tablet, Daily (629) metoprolol tartrate (Lopressor) 25 mg tablet 1 tablet, Every 12 hours scheduled (629,1829) triamcinolone (Kenalog) 0.1 % cream Apply topically. [...] been made to prevent any error in risk developer, however minor errors may be present documented in this [facility] Work Phone: 1(152) 779-788508-21-2023 Discharge summary Author Troy Carvalho [facility] June 28, 2023 7:40am Note Date/Time June 28, 2023 7: 40am [facility] Medical Records Department [address] [place] [address] Discharge Summary 06/28/23 0739 MR#: [id number] Acct: [id number] Name: RADHA THOMAS Rep #:[id number] 67 From: Troy Carvalho MD PCP: Dr. Connor Anderson MD Status: [facility] Location: [place] [address] Providers Primary Care Physician: Dr. Connor Anderson [...] Attending Provider: Troy Carvalho Primary Care Provider: Ranney,Connor Discharge Orders/Prescriptions Prescriptions: No Action levothyroxine 50 [...] Anderson MD; Dr. Troy Carvalho MD~ Signed [facility] Work Phone: [phone]) 639-709908-21-2023 Procedure [facility] Evaluation noteNo assessment information availableOhiohealth [facility] Work Phone: Evaluation note* Diagnosis Onset Date Resolution Status Afib acute Hypertension chronic [facility] Work Phone: Evaluation note* Diagnosis Atrial fibrillation, unspecified type (Multi)- Primary Preop testing Unspecified pre-operative examination documented in this encounter [facility] Work Phone: Evaluation note* Diagnosis Heart [...] (Multi) Atrial fibrillation documented in this encounter [facility] Work Phone: Evaluation note* Diagnosis Longstanding persistent atrial fibrillation (Multi)- Primary documented in this encounter [facility] Work Phone: Evaluation note* Diagnosis Status post placement of cardiac pacemaker- Primary Longstanding persistent atrial fibrillation (Multi) Conduction disorder, unspecified Status post placement of cardiac pacemaker Persistent atrial fibrillation (Multi) Atrial fibrillation Longstanding persistent atrial fibrillation (Multi) Conduction disorder, unspecified documented in this encounter [facility] Work Phone: Evaluation note* Diagnosis Atrial fibrillation/flutter (Multi) documented in this encounter [facility] Work Phone: Evaluation note* Diagnosis On amiodarone therapy- Primary Atrial fibrillation, unspecified type (Multi) documented in this encounter [facility] Work Phone: Evaluation note* Diagnosis Atrial fibrillation, unspecified type (Multi) Presence of cardiac pacemaker Cardiac pacemaker in situ documented in this encounter [facility] Work Phone: Evaluation note* Diagnosis Persistent atrial fibrillation (Multi)- Primary Atrial fibrillation On amiodarone therapy documented in this encounter [facility] Work Phone: Evaluation note* Diagnosis Atrial fibrillation, unspecified type (Multi) Presence of cardiac pacemaker Cardiac pacemaker in situ documented in this encounter [facility] Work Phone: Evaluation note* Diagnosis Onset Date Resolution Status Admit Date Hx of cardiac pacemaker acute J 2024 7:49am PAF (paroxysmal atrial fibrillation) acute May 03, 2025 7:49am Persistent atrial fibrillation acute May 03, 2025 7:49am Hypertension chronic May 03 7:49am [facility] Work Phone: Evaluation note* Diagnosis Atrial fibrillation/flutter (Multi) documented in this encounter [facility] Work Phone: Reason for referral (narrative)No reason for referral information [facility] Work Phone: Reason for visit Narrative* Auth/Cert Specialty Diagnoses / Procedures Referred By Shawna t Referred To Contact Diagnoses Unspecified atrial fibrillation (Multi) Procedures UT COMPRE EP EVAL ABLTJ ATR FIB PULM VEIN ISOLATION Ablation [place]onda [place]án [place] [address] [place] [address] Phone: tel: fax: [facility] [place] [address] [address] [place] [facility] [address] [place] [address] Phone: tel: fax: Referral ID Status Reason Start Date Expiration Date Visits Re quested Visits Authorized [id number] [address] [facility] Work Phone: Reason for visit Narrative* Auth/Cert Specialty Diagnoses / Procedures Referred By Shawna reed Referred To Contact Diagnoses Longstanding persistent atrial fibrillation (Multi) Conduction disorder, unspecified Longstanding persistent atrial fibrillation (Multi) [I48.11] Conduction disorder, unspecified [I45.9] Procedures UT INS NEW/RPLCMT PRM PM W/TRANSV ELTRD ATRIAL&VENT UT CARDIOVERSION ELECTIVE ARRHYTHMIA EXTERNAL Cardioversion PPM [place]onda [place]án [place] [address] [place] [address] Phone: tel: fax: [facility] [address] [place] [address] Phone: tel: fax: Referral ID Status Reason Start Date Expiration Date Visits Re quested Visits Authorized [id number] [address] [facility] Work Phone: Refyty for visit Narrative* Imaging (Routine) - Authorized Specialty Diagnoses / Procedures Referred By Shawna reed Referred To Contact Cardiology Diagnoses Atrial fibrillation/flutter (Multi) Procedures Cardiac Device Check - [place]onda [place]án [place] [address] [place] [address] Phone: tel: fax: Referral ID Status Reason Start Date Expiration Date Visits Requested Visits Authorized [id number] Authorized Perform Procedure 12/22/2024 12/22/2025 [address] [facility] Work Phone: Reocgg for visit Narrative* Imaging (Routine) - Authorized Specialty Diagnoses / Procedures Referred By Shawna reed Referred To Contact Cardiology Diagnoses Atrial fibrillation, unspecified type (Multi) Presence of cardiac pacemaker Procedures Cardiac device check - [place]onda [place]án [place] [address] [place] [address] Phone: tel: fax: Referral ID Status Reason Start Date Expiration Date Visits Requested Visits Authorized [id number] Authorized Perform Procedure 01/10/2025 01/10/2026 [address] [facility] Work Phone: Resglw for visit Narrative* Cardiovascular (Routine) - Authorized Specialty Diagnoses / Procedures Referred By Contac t Referred To Contact Diagnoses Persistent atrial fibrillation (Multi) Procedures ECG 12 lead (Clinic Performed) Lashonda Beltrán [place] [id number] [place], [place] [address] [place] [id number] Phone: tel: fax: Referral ID Status Reason Start Date Expiration Date V isits Requested Visits Authorized [id number] Authorized 04/30/2025 04/30/2026 [address] [facility] Work Phone: Reemrw for visit Narrative* Imaging (Routine) - Authorized Specialty Diagnoses / Procedures Referred By Contac t Referred To Contact Cardiology Diagnoses Atrial fibrillation, unspecified type (Multi) Presence of cardiac pacemaker Procedures Cardiac device check - In Clinic Lashonda Beltrán [place] [id number] [place], [place] [id number] Phone: tel: fax: Referral ID Status Reason Start Date Expiration Date Visits Requested Visits Authorized [id number] Authorized Perform Procedure 12/13/2024 12/13/2025 [address] 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 [facility] 2024 7:00am 3 M FU PER [...] 03, 2025 7:49am PAF (paroxysmal atrial fibrillation) Apr 7:49am Persistent atrial fibrillation April 7:49am Hypertension May 03, 2025 7:49 am Hx of cardiac pacemaker June 28 7:43am PRIETO (obstructive sleep apnea) June 7:43am PAF (paroxysmal atrial fibrillation) Jun 7:43am Hypertension June 28, 2025 7: 43am Chief Complaint Admit Date 3 M FU PER MMM May 03, 2025 7:49 am INT LAB ORDER May 19, 2025 9:22 am E ORDERS/COPY RESULTS TO LASHON LAW June 22, 2025 7:38am 2 M FU June 28, 2025 7: 43am SCREENING July 10, 2025 3:07pm Chief Complaint Admit Date 3 M FU PER MMM May 03, 2025 7:49 am INT LAB ORDER May 19, 2025 9:22 am E ORDERS/COPY RESULTS TO LASHON LAW June 22, 2025 7:38am 2 M FU June 28, 2025 7: 43am SCREENING July 10, 2025 3:07pm PRIETO July 26, 2025 7:36pm Chief Complaint Admit Date 3 M FU PER MMM May 03, 2025 7:49 am INT LAB ORDER May 19, 2025 9:22 am E ORDERS/COPY RESULTS TO LASHON CALLEJAS THANH June 22, 2025 7:38am 2 M FU June 28, 2025 7: 43am SCREENING July 10, 2025 3:07pm PRIETO July 26, 2025 7:36pm Sleep problems August 10, 2025 8: 02am Reason for Visit Admit Date Hx of cardiac pacemaker May 03, 2025 7:49am PAF (paroxysmal atrial fibrillation) Marc e 2024 7:49am Persistent atrial fibrillation April 7:49am Hypertension May 03, 2025 7:49 am Hx of cardiac pacemaker June 28 7:43am PRIETO (obstructive sleep apnea) June 7:43am PAF (paroxysmal atrial fibrillation) Aug us2024 7:43am Hypertension June 28, 2025 7: 43am PRIETO (obstructive sleep apnea) August 8:02am PAF (paroxysmal atrial fibrillation) Oct davey2024 8:02am Hypertension August 10, 2025 8: 02am Advance Directives Advance Directive Response Recorded Date/ Time Name of Medical Power of Surgical Device Sales Representative June 21, 2023 9:47am Living Will Yes June 21 9:47am Power of Surgical Device Sales Representative Yes June 21, 023 9:47am Advance Directive Response Recorded Date/ Time Living Will Yes June 21 9:47am Power of Surgical Device Sales Representative Yes June 21, 2 023 9:47am Date [...] Status: Active Member Role Status Dates Dr. Joel Anderson MD Family Provider Active Dr. Joel Anderson MD Primary Care Provider Acti ve Team Status: Inactive Member Role Status Dates Dr. Joel Anderson MD Primary Care Provider, Ref erring Provider Active Dr. Storm Ryan MD Attending Provider Active Team Status: Active Member Role Status Dates Dr. Joel Anderson MD Primary Care Provider Acti ve Dr. Storm Ryan MD Attending Provider Active Team Status: Inactive Member Role Status Dates Dr. Joel Anderson MD Primary Care Provider, Att ending Provider Active Team Status: Active Member Role Status Dates Dr. Joel Anderson MD Primary Care Provider Acti ve Dr. Storm Ryan MD Attending Provider, Referring Pro vider Active Team Status: Inactive Member Role Status Dates Dr. Joel Anderson MD Primary Care Provider Acti ve Dr. 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 09/13/24 Hospice Community Liaison Relationship Specialty Start Date End Date Generic Provider, [place] [address] PCP - General Electrode Cleaning Machine Operator 09/13/24 Hospice Community Liaison Relationship Specialty Start Date End Date Generic Provider, [place] [address] PCP - General Electrode Cleaning Machine Operator 09/13/24 Hospice Community Liaison Relationship Specialty Start Date End Date Generic Provider, [place] [address] PCP - General Electrode Cleaning Machine Operator 09/13/24 12/14/24 Joel Anderson MD [address] [place] [address] PCP - General Family Medicine 12/15/24 Hospice Community Liaison Relationship Specialty Start Date End Date Generic Provider, [place] [address] PCP - General Electrode Cleaning Machine Operator 09/13/24 12/14/24 Hospice Community Liaison Relationship Specialty Start Date End Date Joel Anderson MD [address] [place] [address] PCP - General Family Medicine 12/15/24 Hospice Community Liaison Relationship Specialty Start Date End Date Joel Anderson MD [address] [place] [address] PCP - General Family Medicine 12/15/24 Hospice Community Liaison Relationship Specialty Start Date End Date Joel Anderson MD [address] [place] [address] PCP - General Family Medicine 12/15/24 Team Status: Active Member Role Status Dates Dr. Joel Anderson MD Primary Care Provider Acti ve Team Status: Inactive Member Role Status Dates Dr. Joel Anderson MD Primary Care Provider Acti ve Start: September 30, 2024 End: September 30, 2024 LASHONDA, THAL Attending Provider Active Start: No vember 2023 End: September 30, 2024 LASHONDA, THAL Referring Provider Active Start: No vember 2023 End: September 30, 2024 Team Status: Inactive Member Role Status Dates Dr. Joel Anderson MD Primary Care Provider Acti ve Start: December 06, 2024 End: December 06, 2024 LASHONDA, [place] Attending Provider Active Start: [facility] 2024 End: December 06, 2024 Dr. Storm Ryan MD Other Provider Active Start : December 06, 2024 End: December 06, 2024 Team Status: Inactive Member Role Status Dates Dr. Joel Anderson MD Primary Care Provider Acti ve Start: December 13, 2024 End: December 13, 2024 Dr. Joel Anderson MD Referring Provider Active Start: December 13, 2024 End: December 13, 2024 Lashon Baltazar PA, PA Attending Provider Active Start: December 13, 2024 End: December 13, 2024 Team Status: Inactive Member Role Status Dates Dr. Joel Anderson MD Primary Care Provider Acti ve Start: January 12, 2025 End: January 12, 2025 LASHONDA, THAL Attending Provider Active Start: [facility] 2024 End: January 12, 2025 LASHONDA, THAL Referring Provider Active Start: [facility] 2024 End: January 12, 2025 Dr. Storm Ryan MD Other Provider Active Start : January 12, 2025 End: January 12, 2025 Team Status: Active Member Role Status Dates Dr. Joel Anderson MD Primary Care Provider Acti ve Start: January 22, 2025 LASHONDATORIN Attending Provider Active Start: [facility] 2024 LASHONDA, [place] Referring Provider Active Start: [facility] 2024 Dr. Storm Ryan MD Other Provider Active Start : January 22, 2025 Team Status: Inactive Member Role Status Dates Dr. Joel Anderson MD Primary Care Provider Acti ve Start: January 22, 2025 End: January 22, 2025 TORIN GALLEGO Attending Provider Active Start: [facility] 2024 End: January 22, 2025 LASHONDA, [place] Referring Provider Active Start: [facility] 2024 End: January 22, 2025 Dr. Storm Ryan MD Other Provider Active Start : January 22, 2025 End: January 22, 2025 Hospice Community Liaison Relationship Specialty Start Date End Date Joel Anderson MD [address] [place] [address] PCP - General Family Medicine 12/15/24 Hospice Community Liaison Relationship Specialty Start Date End Date Joel Anderson MD [address] [place] [address] PCP - General Family Medicine 12/15/24 Team Status: Active Member Role Status Dates Dr. Joel Anderson MD Primary Care Provider Acti ve Start: January 22, 2025 Dr. Leonid Marcano DO Attending Provider Active S tart: January 22, 2025 TORIN GALLEGO Referring Provider Active Start: [facility] 2024 Team Status: Inactive Member Role Status Dates Dr. Joel Anderson MD Primary Care Provider Acti ve Start: May 03, 2025 End: May 03, 2025 Dr. Joel Anderson MD Referring Provider Active Start: May 03, 2025 End: May 03, 2025 Lashon Baltazar PA, PA Attending Provider Active Start: May 03, 2025 End: May 03, 2025 Team Status: Active Member Role/Relationship Status Dates Dr. Joel Anderson MD Primary Care Provider Acti ve Team Status: Inactive Member Role/Relationship Status Dates Dr. Joel Anderson MD Primary Care Provider Acti ve Start: May 03, 2025 End: May 03, 2025 Dr. Joel Anderson MD Referring Provider Active Start: May 03, 2025 End: May 03, 2025 Lashon Baltazar PA, PA Attending Provider Active Start: May 03, 2025 End: May 03, 2025 Team Status: Inactive Member Role/Relationship Status Dates Dr. Joel Anderson MD Primary Care Provider Acti ve Start: May 19, 2025 End: May 19, 2025 Lashon Baltazar PA, PA Attending Provider Active Start: May 19, 2025 End: May 19, 2025 Lashon Baltazar PA, PA Referring Provider Active Start: May 19, 2025 End: May 19, 2025 Team Status: Active Member Role/Relationship Status Dates Dr. Joel Anderson MD Primary Care Provider Acti ve Start: June 22, 2025 Dr. Joel Anderson MD Attending Provider Active Start: June 22, 2025 Dr. Joel Anderson MD Referring Provider Active Start: June 22, 2025 Lashon Baltazar PA, PA Other Provider Active Start: June 22, 2025 Team Status: Inactive Member Role/Relationship Status Dates Dr. Joel Anderson MD Primary Care Provider Acti ve Start: June 28, 2025 End: June 28, 2025 Dr. Joel Anderson MD Referring Provider Active Start: June 28, 2025 End: June 28, 2025 Lashon Baltazar PA, PA Attending Provider Active Start: June 28, 2025 End: June 28, 2025 Team Status: Inactive Member Role/Relationship Status Dates Dr. Joel Anderson MD Primary Care Provider Acti ve Start: June 22, 2025 End: June 22, 2025 Dr. Joel Anderson MD Attending Provider Active Start: June 22, 2025 End: June 22, 2025 Dr. Joel Anderson MD Referring Provider Active Start: June 22, 2025 End: June 22, 2025 Lashon Baltazar PA, PA Other Provider Active Start: June 22, 2025 End: June 22, 2025 Team Status: Inactive Member Role/Relationship Status Dates Dr. Joel Anderson MD Primary Care Provider Acti ve Start: July 10, 2025 End: July 10, 2025 Dr. Joel Anderson MD Attending Provider Active Start: July 10, 2025 End: July 10, 2025 Dr. Joel Anderson MD Referring Provider Active Start: July 10, 2025 End: July 10, 2025 Team Status: Active Member Role/Relationship Status Dates Dr. Joel Anderson MD Primary care physician Act bakari Team Status: Inactive Member Role/Relationship Status Dates Dr. Joel Anderson MD Primary care physician Act bak[place] Start: May 03, 2025 End: May 03, 2025 Dr. Joel Anderson MD Referring Provider Active Start: May 03, 2025 End: May 03, 2025 Lashon Batlazar PA, PA Attending physician Active Start: May 03, 2025 End: May 03, 2025 Team Status: Inactive Member Role/Relationship Status Dates Dr. Joel Anderson MD Primary care physician Act [place] Start: May 19, 2025 End: May 19, 2025 Lashon Baltazar PA, PA Attending physician Active Start: May 19, 2025 End: May 19, 2025 Lashon Baltazar PA, PA Referring Provider Active Start: May 19, 2025 End: May 19, 2025 Team Status: Inactive Member Role/Relationship Status Dates Dr. Joel Anderson MD Primary care physician Act [place] Start: June 22, 2025 End: June 22, 2025 Dr. Joel Anderson MD Attending physician Active Start: June 22, 2025 End: June 22, 2025 Dr. Joel Anderson MD Referring Provider Active Start: June 22, 2025 End: June 22, 2025 Lashon Baltazar PA, PA Nurse Practitioner Active Start: June 22, 2025 End: June 22, 2025 Team Status: Inactive Member Role/Relationship Status Dates Dr. Joel Anderson MD Primary care physician Act [place] Start: June 28, 2025 End: June 28, 2025 Dr. Joel Anderson MD Referring Provider Active Start: June 28, 2025 End: June 28, 2025 Lashon BOONE PA Attending physician Active Start: June 28, 2025 End: June 28, 2025 Team Status: Inactive Member Role/Relationship Status Dates Dr. Joel Anderson MD Primary care physician Act [place] Start: July 10, 2025 End: July 10, 2025 Dr. Joel Anderson MD Attending physician Active Start: July 10, 2025 End: July 10, 2025 Dr. Joel Anderson MD Referring Provider Active Start: July 10, 2025 End: July 10, 2025 Team Status: Inactive Member Role/Relationship Status Dates Dr. Joel Anderson MD Primary care physician Act [place] Start: July 26, 2025 End: July 26, 2025 PAOLO Marie Attending physician Active Start: July 26, 2025 End: July 26, 2025 PAOLO Marie Referring Provider Active Start: July 26, 2025 End: July 26, 2025 Team Status: Inactive Member Role/Relationship Status Dates Dr. Joel Anderson MD Primary care physician Act [place] Start: August 10, 2025 End: August 10, 2025 Dr. Joel Anderson MD Referring Provider Active Start: August 10, 2025 End: August 10, 2025 ARABELLA Bauer Attending physician Active Start: August 10, 2025 End: August 10, 2025 Reason for Visit (unrecogniz ed section and content) Reason Comments Atrial Fibrillation Specialty Diagnoses / Procedures Referred By Contac t Referred To Contact Diagnoses Atrial fibrillation, unspecified type (Multi) Procedures ECG 12 lead (Clinic Performed) L[place]án [place] [address] [place] [address] Phone: tel: fax: Referral ID Status Reason Start Date Expiration Date V isits Requested Visits Authorized [id number] Authorized 09/13/2024 09/13/2025 1 1 Specialty Diagnoses / Procedures Referred By Contac t Referred To Contact Diagnoses Longstanding persistent atrial fibrillation (Multi) Procedures ECG 12 lead (Clinic Performed) Lashonda Beltrán [place] [address] [place] [address] Phone: tel: fax: Referral ID Status Reason Start Date Expiration Date V isits Requested Visits Authorized [id number] Authorized 11/15/2024 11/15/2025 1 1 Reason Comments Atrial Fibrillation Specialty Diagnoses / Procedures Referred By Shawna reed Referred To Contact Diagnoses Atrial fibrillation, unspecified type (Multi) Procedures ECG 12 lead (Clinic Performed) Lashonda Beltrán [place] [address] [place] [address] Phone: tel: fax: Referral ID Status Reason Start Date Expiration Date V isits Requested Visits Authorized [id number] Authorized 01/10/2025 01/10/2026 1 1 Scheduled Active and Recently Administ ered Medications (unrecognized section and content) Medication Order 10/14/2024 10/15/2024 10/16/2024 apixaban (Eliquis) tablet 5 mg 5 mg, oral, 2 times daily, First dose on Wed10/13/24 at 2100 0026 (Unheld by provider - Provider: April Brunson MD)0839 (Given - Provider: Moises Jamil RN)2113 (Given - Provider: Paula Moore, DANIEL) 08 (Given - Provider: Nubia Benton RN)2028 (Given - Provider: Kristi Palmer, DANIEL) 0809 (Given - Provider: Mary Kate Carrera, DANIEL)2100 (Due) colchicine tablet 0.6 mg(Linked Group 1) 0.6 mg, oral, 2 times daily, First dose on 10/15/24 at 0900 0808 (Given - Provider: Nubia Benton RN)2028 (Given - Provider: Kristi Palmer, DANIEL) 0809 (Given - Provider: Mary Kate Carrera, DANIEL)2100 [...] tablet 50 mcg 50 mcg, oral, Daily (30), First dose on 10/14/24 at 0630 0600 [...] 2114 (Given - Provider: Paula Moore RN) 2029 (Given - Provider: Kristi Palmer RN) 1800 (Due) metoprolol tartrate (Lopressor) tablet 12.5 mg 12.5 mg, oral, Every 6 hours, First dose on Wed10/15/24 at 1315 1414 (Given - Provider: Nubia Benton RN)2029 (Given - Provider: Kristi Palmer RN) 0149 (Given - Provider: rKisti Palmer, DANIEL)0809 (Given - Provider: Mary Kate [...] Moises Jamil RN)1620 (Given - Provider: Moises D Hieb, RN)2114 (Given - Provider: Paula Moore RN) 0333 (Given - Provider: Paula Moore RN)1024 (Given - Provider: Nubia Benton, RN)1643 (Given - Provider: Nubia Benton, DANIEL)2325 (Given - Provider: Kristi Palmer, DANIEL) 0809 [...] Saenz RN) 08 (Given - Provider: Edwige Valdes, DANIEL)2099 (Due) apixaban (Eliquis) tablet 5 mg 5 mg, oral, 2 times daily, First dose on Nohelia 12/14/24 at 2100, [facility] 2021 (Given - Provider: Julius Saenz RN) 08 (Given - Provider: Edwige Valdes, DANIEL)2099 (Due) [...] Saenz RN) 08 (Given - Provider: Edwige Valdes, DANIEL)2099 (Due) [...] Saenz RN) 08 (Given - Provider: Edwige Valdes, DANIEL)2099 (Due) pantoprazole (ProtoNix) EC tablet 40 mg 40 mg, oral, 2 times daily before meals, First dose on Nohelia 12/14/24 at 1600, [facility], Do not crush, chew, or split. 1828 (Given - Provider: Edwige Valdes RN) 0753 (Given - Provider: Edwige Valdes, DANIEL)1600 (Due) PRN Medication Order 12/13/2024 12/14/2024 12/15/2024 acetaminophen (Tylenol) oral liquid 650 mg(Linked Group 1) 650 mg, oral, Every 4 hours PRN, pain mild (1-3), first line, Starting on Nohelia 12/14/24 at 1311, [facility], Give oral liquid per feeding tube if present. 1531 (See Alternative - Provider: Kailey Jonhson RN)2332 (See Alternative - Provider: Julius Saenz [...] moderate (4-6), first line, Starting on Nohelia 2/25 at 1311, [facility], If [...] 1225, Intraprocedure 1225 (Given - Provider: Paddy Oneal, RN)1239 (Given - Provider: Paddy Oneal RN) [...] (4- 6), first line, Starting on Nohelia 2 at [...] mild (1-3), first line, Starting on Nohelia 2/25 at 1311, [facility], Give rectally if unable to administer by mouth or feeding tube., If ordered PRN for pain, nurse is permitted to administer this medication for higher pain scores based on patient preference? Yes Group 2: ondansetron (Zofran) tablet 4 mgJump to med 4 mg, oral, Every 8 hours PRN, nausea/vomiting, first line, Starting on Nohelia 2/25 at 1311, [facility], 1st [...] ized section and content) DATE CREATED AUTHOR 05/02/2025 [facility] DATE CREATED AUTHOR AUTHOR'S ORGANIZ ATION 05/04/2025 [facility] DATE CREATED AUTHOR AUTHOR'S ORGANIZ ATION 08/02/2025 [facility] DATE CREATED AUTHOR AUTHOR'S ORGANIZ ATION 08/11/2025 [facility] FOR RECORDS PERTAINING TO PATIENTS [...] BE BASED ON THE PRIMARY CLINICAL RECORDS. [employer] [facility]. provides no warranty or guarantee of the accuracy or completeness of information in this document.
[2025-10-17 08:28] LABS: Hematocrit 36.0 % (37-47); Hemoglobin 12.0 g/dL (12.0-15.0); Immature Reticulocyte Fraction 8.20 % (3.00-15.90); Mean Corp Hgb Conc 33.3 g/dL (32-36); Mean Corpuscular Volume 91.1 fL (81-99); Mean Platelet Vol. 11.1 fl (6.2-12.0); Platelet Count 146 K/mm3 (150-450); RBC Distribution Width CV 12.3 % (11.6-14.6); RBC Distribution Width SD 41.1 fl (35.1-43.9); Red Blood Count 3.95 M/mm3 (4.2-5.4); Reticulocyte Count 1.67 % (0.5-1.5); White Blood Count 5.2 K/mm3 (4.4-11.0)
[2025-10-17 08:50] LABS: Microalbumin,Random Urine 31.8 mg/L (<20 mg/L)
[2025-10-17 09:14] LABS: AST(SGOT) 35 U/L (<=31); Alanine Aminotransfer ALT/SGPT 48 U/L (<=34); Albumin, Serum 4.2 g/dL (3.4-4.8); Alkaline Phosphatase 57 U/L (35-104); Anion Gap 10 (5-15); BUN 16 mg/dL (4-19); BUN/Creat Ratio 16.4 RATIO (10-20); Bilirubin, Direct 0.28 mg/dL (0.00-0.30); Calcium,Total 9.2 mg/dL (7.6-11.0); Carbon Dioxide 24.5 mmol/L (21.0-32.0); Chloride 104 mmol/L (98-108); Ferritin 174 ng/mL (22-378); Globulin 3.1 g/dL (2.2-4.2); Glucose 107 mg/dL (70-99); Potassium 4.6 mmol/L (3.3-5.1); T4 Total, Thyroxin 8.4 ug/dL (4.8-13.9); Vitamin B12 1177 pg/mL (180-914); Vitamin D,25 Hydroxy 53.5 ng/mL (30-100)
[2025-10-17 09:51] LABS: Iron 72 ug/dL (50-170); Iron Binding Capacity,Total 296 ug/dL (250-450); Iron Binding Capacity,Unsat 224 ug/dL (228-428)
== END | disposition home or self-care (01) ==
LOC: LAB 07:29
PROVIDERS: PCP Family Medicine
DX: Z00.00 Encounter for general adult medical examination without abnormal findings (principal); N18.30 Chronic kidney disease, stage 3 unspecified; D63.1 Anemia in chronic kidney disease; E03.9 Hypothyroidism, unspecified; Z79.899 Other long term (current) drug therapy
CPT/HCPCS: 36415; 80048; 80076; 82043; 82306; 82607; 82728; 83540; 83550; 84436; 84439; 84443; 85027; 85045